=== PATIENT | male | born 1950 | race Caucasian/White ===

== ENCOUNTER 2018-05-27 15:19 | Inpatient (IN) | payer OTHER ==
--- NOTE | 2018-05-27 15:44 | RAD REPORT ---
EXAM DESCRIPTION: CT - Ct Stroke Brain Wo Cont - 05/27/2018 3:33 pm CLINICAL HISTORY: Confusion/alteration of awareness COMPARISON: None. TECHNIQUE: Computed axial tomography of the head was obtained. IV contrast was not requested. All CT scans are performed using dose optimization technique as appropriate and may include automated exposure control or mA/KV adjustment according to patient size. FINDINGS: An intracranial bleed is not seen . Cerebral atrophy is present. The ventricles are normal in caliber. No extra-axial fluid collection is noted. Mild opacification the right mastoids. Visualized sinuses clear. IMPRESSION: No acute intracranial abnormality is seen. If patient's symptoms persist MRI of the bra in would be recommended. Exam discussed with Dr. Smith at approximately 3:27 p.m. May 27, 2018
[2018-05-27 16:04] LABS: Protime INR 1.09
[2018-05-27 16:11] LABS: BUN Blood Urea Nitrogen 7 mg/dL (7-18); Bicarbonate 24 mmol/L (21-32); Glucose Level 161 mg/dL (74-106); Sodium Level 139 mmol/L (136-145)
[2018-05-27] MEDS ORDERED: CEFTRIAXONE/SWI 1gm 1 GM/10 ML SYR ONE ×2 (16:13→19:36)
[2018-05-27] MEDS ORDERED: NA CHLORIDE 0.9% 1,000 ML ONE ×2 (16:13→19:20)
--- NOTE | 2018-05-27 16:17 | RAD REPORT ---
EXAM DESCRIPTION: [place] Single View05/27/2018 4:09 pm CLINICAL HISTORY: Chest pain COMPARISON: 2016 FINDINGS: The lungs appear clear of acute infiltrate. The heart is normal size Postsurgical changes involve the chest IMPRESSION: No acute abnormalities displayed
[2018-05-27 16:56] LABS: Absolute Lymphocytes (CBC) 1.5 K/uL (0.7-4.9); Absolute Monocytes 1.4 K/uL (0.1-1.3); Basophils % 0.4 % (0-1.3); Eosinophils % 0.5 % (0-4.4); Hematocrit 45.3 % (39.6-49.0); Lymphocytes % 9.1 % (15.3-44.8); MPV 8.6 fL (7.6-11.3); Monocytes % 8.8 % (3.3-12.3); RBC Red Blood Cell Count 5.14 M/uL (4.33-5.43)
--- NOTE | 2018-05-27 16:57 | RAD REPORT ---
EXAM DESCRIPTION: CTHead angio05/27/2018 4:42 pm CLINICAL HISTORY: TIA /alteration of awareness/confusion COMPARISON: None TECHNIQUE: CT angiogram of the head was obtained. 3D MIPS reconstruction performed. All CT scans are performed using dose optimization technique as appropriate and may include automated exposure control or mA/KV adjustment according to patient size. FINDINGS: The basilar, internal carotid, anterior cerebral, middle cerebral and posterior cerebral a rteries are normal caliber. An aneurysm is not seen. A significant stenosis is not noted. IMPRESSION: Unremarkable CT angiogram head.
[2018-05-27] MEDS ORDERED: ACETAMINOPHEN 500 MG TAB ONE (17:11)
[2018-05-27 17:14] LABS: Urine Bacteria >50 /HPF (NONE SEEN); Urine RBC 20-50 /HPF (NONE SEEN)
--- OUTSIDE RECORDS SUMMARY | 2018-05-27 17:14 | XMS REPORT | Clinical Summary ---
:1950 Author Organization [facility] Address [address] [place] [address] Care Team Providers Name Role Phone Kevin Valenzuela MD Primary Care Provider Allergies No Known Allergies Medications Medication Sig Dispensed Refills Start Date End Date Status metoprolol Take 50 mg by mouth 0 Active (LOPRESSOR) 50 MG 2 (two) times tablet daily. irbesartan (AVAPRO) Take 300 mg by 0 Active 300 MG tablet mouth nightly. rosuvastatin Take 20 mg by mouth 0 Active (CRESTOR) 20 MG daily. tablet metFORMIN Take 1,000 mg by 0 Active (GLUCOPHAGE) 1000 MG mouth 2 (two) times tablet daily with breakfast and dinner. ezetimibe (ZETIA) 10 Take 10 mg by mouth 0 Active mg tablet daily. clopidogrel (PLAVIX) Take 75 mg by mouth 0 Active 75 mg tablet daily. Missing or Pt on a medication 0 Active Non-Formulary for gout. Cannot Medication recall name of it . Active Problems Problem Noted Date Abnormal nuclear stress test 10/02/2015 CAD (coronary artery disease) 08/30/2015 Diabetes 08/30/2015 Hypertension 08/30/2015 Hyperlipidemia 08/30/2015 Family History Medical History Relation Name Comments Cancer Father Diabetes Father Heart disease Father Coronary artery disease Mother Diabetes Mother Relation Name Status Comments Father Mother Social History Tobacco Use Types Packs/Day Years Used Date Former Smoker Alcohol Use Drinks/Week oz/Week Comments No Sex Assigned at Date Recorded Not on file Job Start Date Occupation Industry Not on file Not on file Not on file Travel History Travel Start Travel End No recent travel history available. Last Filed Vital Signs Not on file Plan of Treatment Not on file Results Not on fileafter 05/26/2017 Insurance Payer Benefit Plan / Group Subscriber ID Type Phone Address MEDICARE MEDICARE A B xxxxxxxxxx Medicare AETNA - MGD CARE AETNA INDEMNITY NON CONTR xxxxxxxxx Comm Advance Directives For more information, please contact:[address] [phone] Code Status Date Activated Date Inactivated Comments Full Code 10/02/2015 6:15 AM 10/02/2015 7:01 PM This code status was determined by: Patient
[2018-05-27 17:15] LABS: Urine Culture Reflex Order NOT NEEDED
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
--- NOTE | 2018-05-27 17:27 | EDPHYS ---
Physician Documentation [facility] Name: Dominic Jacobo Age: 68 yrs Sex: Male : 1950 Arrival Date: 05/27/2018 Time: 15:22 Bed 30 Private MD: ED Physician Osmar Smith HPI: 05/27 16:00 This 68 yrs old Male presents to ER via EMS with complaints of altered mental cp status. 16:00 The patient presents with decreased mental status. Onset: The symptoms/episode cp began/occurred today. Patient's baseline: Neuro: alert and fully oriented, Motor: no deficits, Ambulation: walks without assistance, Speech: normal. 16:00 Possible causes: low blood sugar, the patient uses insulin. cp 16:00 Associated signs and symptoms: Pertinent positives: confusion, weakness, Pertinent cp negatives: abdominal pain, chest pain, combativeness, diaphoresis, headache, seizure. Current symptoms: In the emergency department the patient's symptoms are unchanged from the initial presentation. Historical: - Allergies: 18:59 No Known Allergies; rv - Social history:: Smoking status: . - Ebola Screening: : Patient negative for fever greater than or equal to 101.5 degrees Fahrenheit, and additional compatible Ebola Virus Disease symptoms Patient denies exposure to infectious person Patient denies travel to an Ebola-affected area in the 21 days before illness onset. ROS: 16:01 Constitutional: Negative for fever. cp 16:01 Cardiovascular: Negative for chest pain. 16:01 Abdomen/GI: Negative for abdominal pain. 16:01 Neuro: Positive for altered mental status, weakness. 16:01 Unable to obtain ROS due to altered mental status. Exam: 16:02 ECG was reviewed by the Attending Physician. cp 16:07 Head/Face: Normocephalic, atraumatic. cp 16:07 Constitutional: The patient appears in no acute distress, alert, awake, non-diaphoretic, non-toxic, well developed, well nourished. 16:07 Eyes: Periorbital structures: appear normal, Pupils: equal, round, and reactive to light and accomodation, Extraocular movements: intact throughout, Conjunctiva: normal, no exudate, no injection, Sclera: no appreciated abnormality, Lids and lashes: appear normal, bilaterally. 16:07 ENT: External ear(s): are unremarkable, Nose: is normal, Mouth: Lips: moist, Oral mucosa: pink and intact, moist, Posterior pharynx: Airway: no evidence of obstruction, patent. 16:07 Neck: ROM/movement: is normal, is supple, without pain, no range of motions limitations, no meningismus, no nuchal rigidity. 16:07 Chest/axilla: Inspection: normal, Palpation: is normal, no crepitus, no tenderness. 16:07 Cardiovascular: Rate: tachycardic, Rhythm: regular, Edema: is not appreciated, JVD: is not appreciated. 16:07 Respiratory: the patient does not display signs of respiratory distress, Respirations: normal, no use of accessory muscles, no retractions, no splinting, no tachypnea, Breath sounds: are clear throughout, no decreased breath sounds, no stridor, no wheezing. 16:07 Abdomen/GI: Inspection: abdomen appears normal, Palpation: abdomen is soft and non-tender, in all quadrants. 16:07 Skin: cellulitis, is not appreciated, no rash present. 16:07 Neuro: Orientation: to person, place, Mentation: slow to respond, confused, Cerebellar function: Romberg testing is negative, normal finger to nose testing, Motor: moves all fours, general weakness w/o focal deficits, Sensation: no obvious gross deficits. Vital Signs: 15:35 BP 134 / 69 LA Supine (auto/); Pulse 108; Resp 24 S; Temp 99.4; Pulse Ox 94% on R/A; rv 16:53 Pulse 98; Resp 16 S; Temp 100.2(O); Pulse Ox 96% on R/A; rv 17:00 BP 144 / 101 RA; Pulse 96; Resp 29 S; Pulse Ox 96% on R/A; rv 18:00 BP 112 / 92 RA; Pulse 97; Resp 19 S; Pulse Ox 96% on R/A; rv 19:00 BP 113 / 81 RA; Pulse 107; Resp 18 S; Temp 99.8(O); Pulse Ox 96% on R/A; rv 20:00 BP 114 / 75 RA; Pulse 105; Resp 17 S; Pulse Ox 96% on R/A; rv 20:52 BP 128 / 73 RA Supine; Pulse 108; Resp 19 S; Pulse Ox 97% on R/A; rv NIH Stroke Scale Scores: 16:03 NIHSS Score: 1 cp Gilbert Coma Score: 16:05 Eye Response: spontaneous(4). Verbal Response: confused(4). Motor Response: obeys cp commands(6). Total: 14. MDM: 15:23 Patient medically screened. cp 15:45 Differential Diagnosis: CVA, electrolyte abnormality, hypoglycemia, intracranial bleed, cp meningitis, pneumonia, sepsis, UTI, volume depletion, DKA. 16:00 ED course: tpa not administered as onset of symptoms unable to be determined. Urine cp sample collected and symptoms appear to be caused by UTI and less likely due to CVA. 17:25 Data reviewed: vital signs, nurses notes, lab test result(s), EKG, radiologic studies, cp CT scan, plain films, I have discussed the patient's presentation/case with the attending Emergency Department Physician; and as a result, I will admit patient. Physician consultation: Solo Bowlingannamarie was contacted at 17:25, regarding admission, to the telemetry unit. patient's condition. 05/27 15:29 Order name: Basic Metabolic Panel; Complete Time: 16:26 05/27 16:26 Interpretation: Normal except: GLUC 161. 05/27 15:29 Order name: CBC with Diff; Complete Time: 17:46 05/27 17:46 Interpretation: Normal except: WBC 16.1; JACY% 81.2; LYM% 9.1; NEUT A 13.0. 05/27 15:29 Order name: Protime (+inr); Complete Time: 16:26 05/27 16:26 Interpretation: Reviewed. 05/27 15:29 Order name: Ptt, Activated; Complete Time: 16:26 05/27 16:27 Interpretation: Reviewed. 05/27 15:37 Order name: Lactate; Complete Time: 17:11 05/27 17:11 Interpretation: Within normal limits: LAC 1.8. 05/27 15:37 Order name: Blood Culture Adult (2) 05/27 15:29 Order name: CT Stroke Brain w/o Contrast; Complete Time: 16:26 05/27 16:27 Interpretation: Report reviewed. 05/27 15:29 Order name: Stroke CXR 1 View; Complete Time: 16:26 05/27 16:27 Interpretation: Report review. 05/27 15:37 Order name: Procalcitonin; Complete Time: 17:46 cp 05/27 17:47 Interpretation: Procalcitonin < 0.05; Reviewed. 05/27 15:39 Order name: CT Head Angio; Complete Time: 16:59 bd 05/27 17:15 Interpretation: Report reviewed. cp 05/27 15:53 Order name: Influenza Screen (a \T\ B); Complete Time: 16:59 cp 05/27 17:11 Interpretation: Reviewed. cp 05/27 15:56 Order name: Urine Microscopic Only; Complete Time: 17:15 cp 05/27 17:16 Interpretation: Reviewed. 05/27 15:56 Order name: Urine Culture 05/27 17:09 Order name: Urine Dipstick--Ancillary (enter results); Complete Time: 17:46 bd 05/27 17:47 Interpretation: Normal except: USPGR >1.030; UKET 1+; UBLD 3+; UPROT 3+; U NIT cp POSITIVE; UESTR 2+. 05/27 15:29 Order name: EKG; Complete Time: 15:29 iw 05/27 15:29 Order name: Accucheck; Complete Time: 16:56 iw 05/27 15:29 Order name: Cardiac monitoring; Complete Time: 15:50 iw 05/27 15:29 Order name: EKG - Nurse/Tech; Complete Time: 15:56 iw 05/27 15:29 Order name: IV Saline Lock; Complete Time: 15:50 iw 05/27 15:29 Order name: Labs collected and sent; Complete Time: 15:56 iw 05/27 15:29 Order name: NPO; Complete Time: 15:50 iw 05/27 15:29 Order name: O2 Per Protocol; Complete Time: 15:50 iw 05/27 15:29 Order name: O2 Sat Monitoring; Complete Time: 15:51 iw 05/27 17:47 Order name: Brain Wo Cont; Complete Time: 18:41 EDMS 05/27 15:29 Order name: Stroke Swallow Screen; Complete Time: 16:57 iw 05/27 15:48 Order name: Straight Cath - Urine; Complete Time: 16:57 rv EC:02 Rate is 101 beats/min. Rhythm is regular. FL interval is normal. QRS interval is cp normal. QT interval is normal. Interpreted by me. Reviewed by me. Administered Medications: 15:30 Drug: NS 0.9% 1000 ml Route: IV; Rate: 1 bolus; Site: left forearm; rv 20:54 Follow up: IV Status: Completed infusion rv 16:55 Drug: Rocephin - (cefTRIAXone) 2 grams Route: IVPB; Infused Over: 30 mins; Site: left rv forearm; 20:54 Follow up: IV Status: Completed infusion rv 17:03 Drug: Tylenol 1000 mg Route: PO; rv 19:26 Follow up: Response: Temperature is decreased rv 18:15 Drug: Ativan 0.5 mg Route: IVP; Site: left forearm; rv 19:12 Follow up: Response: No adverse reaction rv 19:00 Drug: NS 0.9% 1000 ml Route: IV; Rate: 75 ml/hr; Site: left forearm; rv 20:53 Follow up: IV Status: Infusion continued upon admission rv Disposition: 21:00 Chart complete. cp 05/28 07:02 Co-signature as Attending Physician, Osmar Smith MD. rn Disposition: 05/27/18 17:27 Hospitalization ordered by Solo Abarca for Inpatient Admission. Preliminary diagnosis are Altered mental status, unspecified, Urinary tract infection, site not specified, Weakness - general. - Bed requested for Telemetry/MedSurg (Inpatient). - Status is Inpatient Admission. rv - Condition is Stable. - Problem is new. - Symptoms have improved. UTI on Admission? Yes NIH Stroke Scale - NIH Stroke Score Date: 05/27/2018 Time: 16:03 Total Score = 1 1a. Level of Consciousness (LOC) - 0(Alert) 1b. Level of Consciousness (LOC) (Year \T\ Age) - 1(One) 1c. LOC Commands (Open \T\ Closes Eyes/Trip Motor Operator) - 0(Both) 2. Best Gaze (Lateral Gaze Paresis) - 0(Normal) 3. Visual Field Loss - 0(No visual loss) 4. Facial Palsy - 0(Normal) 5a. Left Arm: Motor (10-second hold) - 0(No drift) 5b. Right Arm: Motor (10-second hold) - 0(No drift) 6a. Left Leg: Motor (5-second hold - always test supine) - 0(No drift) 6b. Right Leg: Motor (5-second hold - always test supine) - 0(No drift) 7. Limb Ataxia (finger/nose \T\ heel/solis - test with eyes open) - 0(Absent) 8. Sensory Loss (pinprick arms/legs/face) - 0(Normal) 9. Best Language: Aphasia (description/naming/reading) - 0(No aphasia) 10. Dysarthria (speech clarity - read or repeat words) - 0(Normal) 11. Extinction and Inattention (visual/tactile/auditory/spatial/personal) - 0(No abnormality) Initials: cp Signatures: Dispatcher [employer] EDTN Mariana Su, RN RN iw Osmar Smith MD MD rn Page, Corey, PA PA cp Ginna Fu, TYRA MARY cg Charles Oglesby RN RN rv Corrections: (The following items were deleted from the chart) 05/27 17:47 17:04 MRA Head Wo Cont ordered. [facility] EDTN 19:25 17:27 Hospitalization Ordered by Solo Abarca DO for Inpatient Admission. cg Preliminary diagnosis is Altered mental status, unspecified; Urinary tract infection, site not specified; Weakness - general. Bed requested for Telemetry/MedSurg (Inpatient). Status is Inpatient Admission. Condition is Stable. Problem is new. Symptoms have improved. UTI on Admission? Yes. cp 20:54 19:25 05/27/2018 17:27 Hospitalization Ordered by Solo Abarca DO for rv Inpatient Admission. Preliminary diagnosis is Altered mental status, unspecified; Urinary tract infection, site not specified; Weakness - general. Bed requested for Telemetry/MedSurg (Inpatient). Status is Inpatient Admission. Condition is Stable. Problem is new. Symptoms have improved. UTI on Admission? Yes. cg
[2018-05-27 17:33] LABS: Urine Blood 3+ (NEG); Urine Glucose NEGATIVE (NEG); Urine Protein 3+ (NEG); Urine Specific Gravity >1.030 (1.005-1.030); Urine pH 5.5 (5.0-7.0)
[2018-05-27] MEDS ORDERED: LORazepam 2 MG/ML VIAL ONE (18:15)
--- NOTE | 2018-05-27 18:36 | RAD REPORT ---
EXAM DESCRIPTION: MRI - Brain Wo Cont - 05/27/2018 6:23 pm CLINICAL HISTORY: Confusion/alteration of awareness COMPARISON: May 27, [address] TECHNIQUE: Axial, sagittal, and coronal magnetic images of the brain were obtained. Contrast was not requested FINDINGS: Examination is very limited secondary to extensive patient motion. No gross acute intracranial abnormality is seen. Mild signal within the right mastoids IMPRESSION: Very limited examination with no gross acute intracranial abnormality
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
[2018-05-27] MEDS ORDERED: ONDANSETRON 4 MG/2 ML VIAL IV PRN (20:53)
[2018-05-27] MEDS ORDERED: ACETAMINOPHEN 500 MG TAB PO PRN (20:53)
[2018-05-27] MEDS: INSULIN -REGULAR HUMAN 50 UNIT/0.5 ML ML SQ SCH (21:00)
[2018-05-27] MEDS: NA CHLORIDE 0.9% 1,000 ML IV SCH (22:32)
[2018-05-28] MEDS: NA CHLORIDE 0.9% 1,000 ML IV SCH ×3 (06:20→18:39)
[2018-05-28 06:34] LABS: Absolute Lymphocytes (CBC) 1.4 K/uL (0.7-4.9); Absolute Monocytes 1.5 K/uL (0.1-1.3); Absolute Neutrophil 11.6 K/uL (1.8-8.0); Basophils % 0.5 % (0-1.3); Eosinophils % 0.5 % (0-4.4); Hematocrit 40.1 % (39.6-49.0); Lymphocytes % 9.6 % (15.3-44.8); MPV 9.1 fL (7.6-11.3); Monocytes % 10.2 % (3.3-12.3)
[2018-05-28 06:53] LABS: BUN Blood Urea Nitrogen 6 mg/dL (7-18); Bicarbonate 24 mmol/L (21-32); Glucose Level 181 mg/dL (74-106); Potassium 3.2 mmol/L (3.5-5.1); Sodium Level 138 mmol/L (136-145)
[2018-05-28] MEDS: INSULIN -REGULAR HUMAN 50 UNIT/0.5 ML ML SQ SCH ×4 (07:30→21:29)
[2018-05-28] MEDS ORDERED: MAGNESIUM SULFATE 1 gm IVPB 1 GM/100 ML BAG IV ONE (08:00)
[2018-05-28] MEDS ORDERED: POTASSIUM CL SA 10 MEQ TAB PO ONE (09:00)
[2018-05-28] MEDS ORDERED: CEFTRIAXONE 1 GM/NS 50 ML 1 GM/50 ML BAG IV SCH (09:00)
[2018-05-28] MEDS: ENOXAPARIN 40 MG/0.4 ML SQ SCH (10:25)
[2018-05-28] MEDS: CEFTRIAXONE/SWI 1gm 1 GM/10 ML SYR IV SCH (10:25)
--- NOTE | 2018-05-28 11:00 | RAD REPORT ---
EXAM DESCRIPTION: CT - Stone Protocol - 05/28/2018 5:34 am CLINICAL HISTORY: 68-year-old male with sepsis and urinary tract infection TECHNIQUE: Axial CT imaging of the abdomen and pelvis was performed. Sagittal and coronal reconstr ucted images were then performed. The CT study is performed according to ALARA (as low as reasonably achievable) or ALARA/IMAGE GENTLY, with automatic adjustment of mA and/or kV according to patient siz e. Performed on: 05/28/2018 at 12:06 AM COMPARISON: None. FINDINGS: Lung bases: The lung bases are clear. There is minimal bibasilar atelectasis and/or fibros is. Liver: The liver is enlarged and measures approximately 20 cm in craniocaudal dimension. No focal hep atic abnormalities are appreciated on this unenhanced scan. Liver attenuation is within normal limits . Spleen: The spleen is normal is size, configuration and attenuation. No focal splenic abnormalities a re appreciated on this unenhanced scan. Gallbladder and bile duct: The gallbladder is surgically absent. There is no biliary ductal dilatat ion. Pancreas: The pancreas is grossly normal in size and configuration. Adrenal Glands: There is an approximately 1.3 x 1.0 cm mass arising from the apex of the right adrena l gland measuring approximately -40 Hounsfield units most consistent with a lipid rich adenoma or mye lolipoma. No follow-up imaging is recommended. There is an approximately 1.6 x 1.0 x 3.1 cm low densi ty mass arising from the anterior limb of the left adrenal gland measuring -66 Hounsfield units consi stent with a lipid rich adenoma or myelolipoma. No follow-up imaging is recommended. Additionally, th ere is an approximately 1.5 x 1.5 cm low density mass arising from the left adrenal gland measuring a pproximately 22 Hounsfield units. This likely represents a probable adenoma. Kidneys: The kidneys are normal in size and configuration. There is no evidence of hydronephrosis. Th ere is no evidence of nephrolithiasis. There is increased attenuation within the renal collecting sys tems bilaterally which may represent retained contrast from a prior examination versus less likely ca lcification. There is stranding of the perinephric fat bilaterally which is nonspecific and may be re lated to chronic medical renal disease. Stomach: The stomach is grossly normal. There is no definite hiatal hernia. Bowel: The bowel gas pattern is non specific and non obstructive. There is scattered colonic divertic ulosis. Appendix: The appendix is normal. Free air: There is no evidence of free air. Free fluid: There is no evidence of free fluid. Vasculature: The aorta is normal in caliber and contour. The inferior vena cava is grossly unremarkab le. There are atherosclerotic calcifications along the abdominal aorta and iliac arteries. Lymphadenopathy: No pathologic lymphadenopathy is identified. Bladder: The bladder is incompletely distended. There is contrast within the bladder lumen and there is diffuse thickening of the bladder wall which measures at least 1 cm in diameter. There is mild inf iltration of the perivesical fat. An infectious or inflammatory process involving the bladder is not excluded. Reproductive: The prostate gland is mildly prominent and measures approximate 6.0 x 4.5 cm in cross-s ectional diameter. Bones: There are mild to moderate degenerative changes along the thoracolumbar spine. Soft tissues: There is a small fat-containing ventral umbilical hernia. IMPRESSION: 1. There is an approximately 1.5 cm low density mass arising from the left adrenal gland measuring 22 Hounsfield units likely representing a probable adenoma. A one-year follow-up adrenal w ashout CT is recommended. If stable greater than or equal to one year, no further follow-up imaging. 2. Bilateral lipid rich adrenal adenomas or myelolipomas. These require no follow-up imaging. 3. Diffuse bladder wall thickening despite incomplete distention of the urinary bladder with infiltra tion of the perivesical fat. An underlying infectious or inflammatory process involving the bladder i s not excluded. There is contrast present within the bladder and there appears to be faint contrast o pacification of the renal collecting systems which may be related to a prior contrast enhanced examin ation. 4. Hepatomegaly. 5. Remote cholecystectomy. 6. Scattered colonic diverticulosis. 7. Degenerative changes of the skeletal and vascular structures. Electronically signed by: Arleen Edgar DO 05/28/2018 1:28 AM CDT Due to temporary technical issues with the PACS/Fluency reporting system, reports are being signed by the in house radiologist as a courtesy to ensure prompt reporting. The interpreting radiologist is f ully responsible for the content of the report.
--- NOTE | 2018-05-28 12:45 | P.PN ---
Subjective Date of Service: 05/28/18 Primary Care Provider: Dr. Valenzuela Chief Complaint: sepsis, UTI Subjective: Other (Slight confusion but overall stable) Physical Examination - Vital Signs Temperature: 97.6 F Blood Pressure: 137/85 Pulse: 112 Respirations: 18 Pulse Ox (%): 92 - Physical Exam General: Alert, Oriented x1, Cooperative, Other (Mild confusion) HEENT: Atraumatic Neck: Supple Respiratory: Clear to auscultation bilaterally, Normal air movement Cardiovascular: Abnormal pulses (Mild sinus tachycardia ) Gastrointestinal: Normal bowel sounds, Soft and benign, Non-distended, No tenderness, No masses, No rebound, No guarding Musculoskeletal: No erythema, No tenderness, No warmth Integumentary: No cyanosis Neurological: Normal speech, Normal strength at 5/5 x4 extr, Normal tone - Studies Laboratory Data (last 24 hrs) 05/27/18 16:30: WBC 16.1 H, Hgb 15.3, Hct 45.3, Plt Count 243 05/27/18 15:48: PT 12.8 H, INR 1.09, APTT 31.1 05/27/18 15:48: Sodium 139, Potassium 4.0, BUN 7, Creatinine 0.82, Glucose 161 H Microbiology Data (last 24 hrs): 05/27/18 15:45 Nasopharnyx Influenza Type A Antigen Screen - Final 05/27/18 15:45 Nasopharnyx Influenza Type B Antigen Screen - Final Medications List Reviewed: Yes Assessment & Plan Discharge Plan: Other (Inpatient rehab) Plan to discharge in: Greater than 2 days Physician Review Additional Text: Impression: Toxic encephalopathy likely related to underlying UTI with possible sepsis with history of urinary incontinence Diabetes mellitus type 2, insulin-dependent Hypertension Hyperlipidemia CAD 1.5 cm left adrenal mass likely a benign adenoma Plan: Toxic encephalopathy likely related to underlying UTI with possible sepsis with history of urinary incontinence: Continue IV antibiotic therapy. Will have pharmacy monitor and adjust. Blood and urine cultures obtained. Await findings. MRI of brain and CT head unremarkable for acute stroke. Will restart medication for urinary incontinence. Will provide DVT prophylaxis- Lovenox. Physical therapy has evaluated patient. They are recommending inpatient rehab or skilled placement. Will consult inpatient rehab. Continue IV fluids. Will continue monitor and adjust medication. Diabetes mellitus type 2, insulin-dependent: Will check A1c. Will continue with insulin sliding scale. Hypertension: Will restart home medication including metoprolol and Arb inhibitor. Hyperlipidemia: Restart Crestor. CAD: Restart aspirin and Plavix. 1.5 cm left adrenal mass likely a benign adenoma: CT scan reviewed. This can be further monitored and addressed as an outpatient. May need to repeat CT scan in 3-6 months to monitor stability. Time Spent Managing Pts Care (In Minutes): 55
[2018-05-28] MEDS ORDERED: D50W 25 GM/50 ML SYRINGE IV PRN (12:46)
[2018-05-28] MEDS ORDERED: GLUCAGON 1 MG/VIAL IM PRN (12:46)
[2018-05-28 18:16] LABS: Absolute Lymphocytes (CBC) 1.4 K/uL (0.7-4.9); Absolute Monocytes 1.5 K/uL (0.1-1.3); Absolute Neutrophil 11.8 K/uL (1.8-8.0); Basophils % 0.4 % (0-1.3); Eosinophils % 0.6 % (0-4.4); Hematocrit 40.5 % (39.6-49.0); Lymphocytes % 9.5 % (15.3-44.8); MPV 8.5 fL (7.6-11.3); Monocytes % 10.1 % (3.3-12.3); RBC Red Blood Cell Count 4.58 M/uL (4.33-5.43)
[2018-05-28 18:37] LABS: ALT/SGPT 22 U/L (12-78); AST/SGOT 12 U/L (15-37); Albumin 3.2 g/dL (3.4-5.0); Alkaline Phosphatase 71 U/L (45-117); BUN Blood Urea Nitrogen 7 mg/dL (7-18); Bicarbonate 23 mmol/L (21-32); Glucose Level 206 mg/dL (74-106); Protein, Total 7.1 g/dL (6.4-8.2); Sodium Level 140 mmol/L (136-145)
[2018-05-28 18:41] LABS: Potassium 5.5 mmol/L (3.5-5.1)
[2018-05-28] MEDS ORDERED: ROSUVASTATIN 10 MG TAB PO SCH (21:00)
[2018-05-28] MEDS ORDERED: INSULIN GLARGINE 100 UNITS/ML SQ SCH (21:00)
[2018-05-28] MEDS: METOPROLOL XL 25 MG TAB PO SCH (21:29)
[2018-05-29] MEDS: NA CHLORIDE 0.9% 1,000 ML IV SCH ×2 (03:00→12:34)
[2018-05-29 06:13] LABS: Absolute Lymphocytes (CBC) 1.4 K/uL (0.7-4.9); Absolute Monocytes 1.4 K/uL (0.1-1.3); Absolute Neutrophil 11.6 K/uL (1.8-8.0); Basophils % 0.6 % (0-1.3); Eosinophils % 1.3 % (0-4.4); Hematocrit 38.4 % (39.6-49.0); Lymphocytes % 9.8 % (15.3-44.8); MPV 8.7 fL (7.6-11.3); Monocytes % 9.8 % (3.3-12.3); RBC Red Blood Cell Count 4.39 M/uL (4.33-5.43)
[2018-05-29 06:19] LABS: BUN Blood Urea Nitrogen 6 mg/dL (7-18); Bicarbonate 24 mmol/L (21-32); Glucose Level 173 mg/dL (74-106); Potassium 3.8 mmol/L (3.5-5.1); Sodium Level 137 mmol/L (136-145)
[2018-05-29] MEDS ORDERED: ASPIRIN 81 MG CHEWABLE TABLET PO SCH (09:00)
[2018-05-29] MEDS ORDERED: CLOPIDOGREL 75 MG TABLET PO SCH (09:00)
[2018-05-29] MEDS ORDERED: EZETIMIBE 10 MG TAB PO SCH (09:00)
[2018-05-29] MEDS ORDERED: IRBESARTAN 150 MG TAB PO SCH (09:00)
[2018-05-29] MEDS ORDERED: TOLTERODINE LA 4 MG CAP PO SCH (09:00)
[2018-05-29] MEDS ORDERED: POTASSIUM CL SA 10 MEQ TAB PO ONE (09:00)
[2018-05-29] MEDS: METOPROLOL XL 25 MG TAB PO SCH (10:04)
[2018-05-29] MEDS: CEFTRIAXONE/SWI 1gm 1 GM/10 ML SYR IV SCH (10:04)
[2018-05-29] MEDS: ENOXAPARIN 40 MG/0.4 ML SQ SCH (10:05)
[2018-05-29] MEDS: INSULIN -REGULAR HUMAN 50 UNIT/0.5 ML ML SQ SCH ×3 (10:11→16:58)
--- NOTE | 2018-05-29 13:39 | P.PN ---
Subjective Date of Service: 05/29/18 Primary Care Provider: Dr. Valenzuela Chief Complaint: sepsis, UTI Subjective: Improving (Patient more alert and appropriate today.) Physical Examination - Vital Signs Temperature: 98.2 F Blood Pressure: 132/74 Pulse: 94 Respirations: 18 Pulse Ox (%): 93 - Physical Exam General: Alert, In no apparent distress, Oriented x3, Cooperative HEENT: Atraumatic Neck: Supple Respiratory: Clear to auscultation bilaterally, Normal air movement Cardiovascular: Normal pulses, Regular rate/rhythm Gastrointestinal: Normal bowel sounds, Soft and benign, Non-distended, No masses , No rebound, No guarding Musculoskeletal: No erythema, No tenderness, No warmth Integumentary: No tenderness/swelling, No erythema, No warmth, No cyanosis Neurological: Normal speech, Normal strength at 5/5 x4 extr, Normal tone, Normal affect - Studies Microbiology Data (last 24 hrs): 05/27/18 16:15 Clean Catch Urine [place] Count - Final >100,000 CFU/ML. 05/27/18 16:15 Clean Catch Urine - Final Klebsiella Pneumoniae Medications List Reviewed: Yes Assessment & Plan Discharge Plan: Other (Inpatient rehab) Plan to discharge in: 24 Hours Physician Review Additional Text: Impression: Toxic encephalopathy likely related to underlying UTI, urine culture positive for Klebsiella with history of urinary incontinence: Diabetes mellitus type 2, insulin-dependent Hypertension Hyperlipidemia CAD 1.5 cm left adrenal mass likely a benign adenoma Plan: Toxic encephalopathy likely related to underlying UTI, urine culture positive for Klebsiella with history of urinary incontinence: Patient continues to improve. He is back to baseline in his mentation. Urine culture reviewed. Will change IV antibiotic therapy to oral Augmentin. Will continue to monitor closely. Continue with physical therapy. Physical therapy recommended inpatient rehab. Will pursue inpatient rehab. Await acceptance. Case discussed with and his primary care physician. Dc IV fluids. Diabetes mellitus type 2, insulin-dependent: Will adjust medication for better control Hypertension: Continue with home medication Hyperlipidemia: Continue medication CAD: Continue home medication 1.5 cm left adrenal mass likely a benign adenoma: CT scan reviewed. This can be further monitored and addressed as an outpatient. May need to repeat CT scan in 3-6 months to monitor stability. Time Spent Managing Pts Care (In Minutes): 55
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
[2018-05-29] MEDS ORDERED: AMOX/K CLAV 500 MG TAB PO SCH (21:00)
[2018-05-29] MEDS ORDERED: INSULIN GLARGINE 100 UNITS/ML SQ SCH (21:00)
--- NOTE | 2018-06-02 11:15 | EKG ---
Test Date: 2018-05-27 Test Time: 15:56:06 Weekend Caregiver: VISH MEASUREMENT RESULTS: Intervals: Rate: 101 NV: 140 QRSD: 88 QT: 350 QTc: 453 [place]: P: 77 NV: 140 QRS: 12 T: 94 INTERPRETIVE STATEMENTS: Sinus tachycardia ST & T wave abnormality, consider lateral ischemia Abnormal ECG Compared to ECG 08/25/2008 08:40:44 ST (T wave) deviation now present Possible ischemia now present Sinus rhythm no longer present Electronically Signed On 05-27-18 16:57:16 CDT by Zeyad Castro
== END 2018-05-29 17:30 | DRG 689 ==
LOC: ER 15:19 → ERHOLD 18:51 → 2ND 20:24
PROVIDERS: ADMIT Family Medicine; ATTEND Internal Medicine
DX: N39.0 Urinary tract infection, site not specified (principal); G92 Toxic encephalopathy; B96.1 Klebsiella pneumoniae [K. pneumoniae] as the cause of diseases classified elsewhere; E11.9 Type 2 diabetes mellitus without complications; I10 Essential (primary) hypertension; R32 Unspecified urinary incontinence; E78.5 Hyperlipidemia, unspecified; I25.10 Atherosclerotic heart disease of native coronary artery without angina pectoris; E27.8 Other specified disorders of adrenal gland; Z95.1 Presence of aortocoronary bypass graft
CPT/HCPCS: 36415; 70450; 70496; 70551; 71045; 74176; 76377; 80048; 80053; 81003; 81015; 82962; 83605; 83735; 84132; 84145; 85025; 85610; 85730; 87040; 87077; 87086; 87088; 87186; 87804; 93005; 96361; 96365; 96366; 96375; 97116; 97163; 97530; 99285; J0696; J1650; J3475; J7030

== ENCOUNTER 2018-05-29 13:31 | Inpatient (IN) | payer OTHER ==
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
--- OUTSIDE RECORDS SUMMARY | 2018-05-29 17:21 | XMS REPORT | Clinical Summary ---
:1950 Author Organization [facility] Address [address] [place] [address] Care Team Providers Name Role Phone Kevin [...] Not on file Results Not on fileafter 05/28/2017 Insurance Payer Benefit Plan / Group Subscriber ID Type Phone Address MEDICARE MEDICARE A B xxxxxxxxxx Medicare AETNA - MGD CARE AETNA INDEMNITY NON CONTR xxxxxxxxx Comm Advance Directives For more information, please contact:[address] [phone] Code Status Date Activated Date Inactivated Comments Full Code 10/02/2015 6:15 AM 10/02/2015 7:01 PM This code status was determined by: Patient
[2018-05-29] MEDS ORDERED: GLUCAGON 1 MG/VIAL IM PRN (17:37)
[2018-05-29] MEDS ORDERED: D50W 25 GM/50 ML SYRINGE IV PRN (17:37)
[2018-05-29] MEDS ORDERED: DOCUSATE NA/SENNA CONC 1 TAB PO PRN (17:56)
[2018-05-29] MEDS: AMOX/K CLAV 500 MG TAB PO SCH (19:41)
[2018-05-29] MEDS: METOPROLOL XL 25 MG TAB PO SCH (19:42)
[2018-05-29] MEDS: TRAMADOL HCL 50 MG TAB PO PRN (19:42)
[2018-05-29] MEDS: APIXABAN 2.5 MG TABLET PO SCH (19:42)
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
--- NOTE | 2018-05-29 19:49 | PAPE ---
PATIENT: [facility] MR# [id number] REFERRING DOCTOR duy Abarca EVALUATION DATE AND TIME 05/29/2018 19:48 (CDT) NAME YANICK COOPER DATE OF 1950 AGE 68 PHONE N# [id number] GENDER male EVALUATING PHYSICIAN Dr. Mc Clarke M.D. ADMISSION DIAGNOSIS: SEPSIS, UTI, HYPERTENSION, DIABETES MELLITUS ONSET DATE 05/27/2018 SECONDARY/COMORBID DIAGNOSES TIERED: - Tier 3 Type 2 diabetes mellitus with diabetic neuropathy, unspecified (E11.40) - N/A HYPERTENSION CAD POST-ADMISSION FUNCTIONAL/MEDICAL STATUS: - Bladder Same accident frequency: Ind - No accidents in the past 7 days - Bowel Same accident frequency: Ind - No accidents in the past 7 days - Walking Same score based on distance walked: 3(>=150ft) - Wheelchair Same score based on distance traveled: 0(N/A) STATUS CHANGE EVALUATION: No change in Functional or Medical Status is identified compared with Pre-Admission screening. PATIENT NEEDS CLOSE MEDICAL SUPERVISION BY A REHABILITATION PHYSICIAN FOR: Bowel and Bladder Management Coordination of Treatment Team Diabetes Management Medical and Co-Morbidity Management PATIENT REQUIRES 24X7 REHAB NURSING FOR MEDICAL AND FUNCTIONAL MGT. OF THE FOLLOWING DEFICITS: ADL's Ambulation Bowel and Bladder Management Cognition Communication Disease Management Medication Management Patient/Family Education Providing Safe Environment Transfers Pain Management PATIENT REQUIRES INTENSIVE, COORDINATED INTERDISCIPLINARY APPROACH TO REHAB: Arranging Home Equipment/Services Discharge Planning Family Intervention/Training Recreation Adviser/Case Management LIST OF IDENTIFIED AND POTENTIAL PROBLEMS: Alteration in leisure activities Bladder, Incontinence Blood Pressure, Hypertension/hypotension Issues Bowel, Incontinence Diabetes, Hyperglycemia/hypoglycemia Issues Infection, Actual or Potential Mobility Impaired Pain, Alteration in Comfort Self Care Deficit Skin Integrity, Actual or Potential Urinary Tract Infection (UTI), Actual or Potential RISK FOR COMPLICATIONS - Hypertension CVA. Hypotension. AK. TIA. - CAD CHF. Cardiac Arrest. AK. Pain. INTERVENTIONS - Hypertension - CAD 02 sats. Activity management. Medications. VS. PATIENT COULD BE AT RISK FOR COMPLICATIONS FROM ADVERSE MEDICAL CONDITIONS DUE TO HIS/HER COMORBIDITI ES AND THE RIGORS OF THE INTENSIVE REHABILLITATION PROGRAM. METHODS OR INTERVENTIONS TO AVOID COMPLIC ATIONS INCLUDE: - Infection Clinical staff to assess and manage the signs and symptoms of infection including fever, redness, war mth, etc. - Urinary Tract Infection - Falls Patient will be evaluated for Fall Precautions and will be placed on Fall Precautions as indicated pe r protocol. - Skin Breakdown Nursing will assess skin daily using assessment tool and will place on Skin Breakdown Precautions as indicated per protocol. - Pain Clinical staff may employ non-medication methods such as massage, distraction, decrease stimulus, etc . as needed. Clinical staff will assess patient's pain level every shift per protocol to assess and e nsure pain management effectiveness. Medications will be given and the pain level re-assessed. PRELIMINARY PLAN OF CARE: - Physical Therapy Patient needs Physical Therapy for a daily minimum of 1.5 hours at least 5 out of 7 days, to improve: Mobility, Strengthening, Transfers, Stretching, ROM, Endurance, Ability to manage stairs, Gait, and Balance. - Rehabilitation Nursing Patient requires 24x7 Rehabilitation Nursing for: Pain Issues, Identifying and preventing risk factor s, Monitoring and reporting current medical conditions, Assisting with ambulation and transfer, Preston ting with all ADL-s, Teaching patients about disease process and medications, Family teaching, Provid ing safe environment, Bowel and Bladder Issues, Skin Integrity, and Medication Management. Patient needs Recreation Adviser and/or Case Management for: Discharge Planning, Arranging Home Equipmen t or Services, and Family Interventions. - Dietary and Nutrition Services Patient needs Dietary and Nutrition Services for: Adequate Nutrition, Nutritional Supplements, and Nu tritional Education. - Occupational Therapy Patient needs Occupational Therapy for a daily minimum of 1.5 hours at least 5 out of 7 days, to impr ove Activities of Daily Living, including: Eating, Grooming, Bathing, Dressing, Toileting, Toilet Tra nsfers, Community Reintegration, Higher functional activities, Adaptive Equipment, Splinting, Househo ld Tasks, and Other activities as determined. POTENTIAL FUNCTIONAL GOALS FOR PATIENT TO ACHIEVE BY DISCHARGE: - Safety Precaution Patient will remain free from falls or injury at time of discharge. - Bed Mobility Patient will perform bed mobility at 4-Harley level of assistance. - Transfers Patient will complete transfers from bed to chair at 4-Harley level of assistance. - Mobility Patient will ambulate 150 ft with 4-Harley level of assistance with RW. PATIENT REHAB POTENTIAL Expected level of measurable improvement will be of a practical value to patient's functional capacit y or adaptations to impairments Has a viable Discharge Plan Medically appropriate; condition is sufficiently stable to participate in intensive rehab program Patient is able and expected to receive 3 hours of individualized therapy daily on at least 5 of ever y 7 days Patient's prognosis for significant practical improvement within a reasonable period of time appears Good DISCHARGE PLAN: - Estimated Length of Stay (days) 13. - Consensus on plan Discharge plan has been discussed with primary caregiver. Patient/Family is in agreement with the heike n. Primary caregiver is in agreement with the plan. - Patient/Family Goals Return home with assistance. - Planned Living Setting Upon Discharge Home, to live with Family/Relatives. Transitional Living. CONCLUSION ON REHABILITATION NECESSITY: I have evaluated patient's pre-admission functional status and, comparing it to the patient's post-ad mission functional status now, I conclude that the pre-admission assessment was accurate. Patient's c ondition on admission supports the medical necessity of admission to IRF. It is safe to proceed with patient's therapy program. SIGNATURE PANEL: (CDT)
[2018-05-29] MEDS ORDERED: EZETIMIBE 10 MG TAB PO SCH (21:00)
[2018-05-29] MEDS: ROSUVASTATIN 10 MG TAB PO SCH (22:12)
[2018-05-29] MEDS: INSULIN -REGULAR HUMAN 50 UNIT/0.5 ML ML SQ SCH (22:42)
[2018-05-30] MEDS: LIDOCAINE 5% PATCH TOP SCH ×2 (00:52→21:05)
--- NOTE | 2018-05-30 02:11 | FAST ---
SHIFT START DATE/TIME: 05/29/2018 19:00 (CDT) SHIFT END DATE/TIME: 05/30/2018 07:00 (CDT) NAME YANICK COOPER DATE OF : 1950 DATE OF ADMISSION: 05/29/2018 17:19 (CDT) PHONE: AGE: 68 SSN# [id number] GENDER: Male ENCOUNTER PHYSICIAN: Dr. Mc Clarke M.D. ADMISSION DIAGNOSIS: - Debility 16 - Debility (16) SEPSIS, UTI, HYPERTENSION, DIABETES MELLITUS. EATING: Activity did not occur on this shift EATING - SCORE: 0-UNK GROOMING: Activity did not occur on this shift GROOMING - SCORE: 0-UNK BATHING: Activity did not occur on this shift BATHING - SCORE: 0-UNK DRESSING - UPPER BODY: Patient is not dressing in public clothing ARTICLES SCORE Total number of steps: 0 DRESSING - UPPER BODY - SCORE: 0-UNK DRESSING - LOWER BODY: Patient is not dressing in public clothing ARTICLES SCORE Total number of steps: 0 DRESSING - LOWER BODY - SCORE: 0-UNK TOILETING: Activity did not occur on this shift TOILETING - SCORE: 0-UNK BLADDER MANAGEMENT: Shokan removes incontinent device (Depends, pull ups, etc.); cleans the patient after accident / inco ntinent episode; and, applies new incontinent device. BLADDER MANAGEMENT - SCORE: 1-DEP BLADDER MANAGEMENT - FREQUENCY OF ACCIDENTS: BLADDER MANAGEMENT(FA) - STEP 1: How many accidents has the patient had during the current shift? 2 BOWEL MANAGEMENT: Activity did not occur on this shift BOWEL MANAGEMENT - SCORE: 7-IND TRANSFERS: BED, CHAIR, WHEELCHAIR: Activity did not occur on this shift TRANSFERS: BED, CHAIR, WHEELCHAIR - SCORE: 0-UNK TRANSFERS: TOILET: Activity did not occur on this shift TRANSFERS: TOILET - SCORE: 0-UNK TRANSFERS: SHOWER: Activity did not occur on this shift TRANSFERS: SHOWER - SCORE: 0-UNK TRANSFERS: TUB: Activity did not occur on this shift TRANSFERS: TUB - SCORE: 0-UNK LOCOMOTION: WALK: Activity did not occur on this shift LOCOMOTION: WALK - SCORE: 0-UNK LOCOMOTION: WHEELCHAIR: Activity did not occur on this shift LOCOMOTION: WHEELCHAIR - SCORE: 0-UNK COMPREHENSION: COMPREHENSION: TYPE: Both COMPREHENSION - STEP 1: Does the patient require help from a person or device, or need extra time to understand complex and a bstract ideas (such as current events, finances, discharge planning, medical issues, relationships, e tc)? Yes. COMPREHENSION - STEP 2: Does the patient require help to understand questions or statements about basic needs or ideas (such as hunger, thirst, sleep, safety, daily schedule, room location, or discomfort) half or more of the t mary? No. COMPREHENSION - STEP 3: How often does the patient need help to understand directions and conversation about basic needs? Les s than 10% of the time COMPREHENSION - SCORE: 5-SUP EXPRESSION EXPRESSION: TYPE: Both EXPRESSION - STEP 1: Does the patient require help from a person or device, or need extra time expressing complex and abst ract ideas (such as current events, finances, discharge planning, medical issues, relationships, etc) ? Yes. EXPRESSION - STEP 2: Does the patient require help to express basic necessities or ideas (such as hunger, thirst, sleep, s afety, daily schedule, room location, or discomfort) half or more of the time? No. EXPRESSION - STEP 3: How often does the patient need help to express directions and conversation about basic needs? Less t story 10% of the time EXPRESSION - SCORE: 5-SUP SOCIAL INTERACTION: SOCIAL INTERACTION - STEP 1: Does the patient require a helper to interact with others in social and therapeutic situations? No. SOCIAL INTERACTION - STEP 2: Does the patient need extra time in social situations, OR does s/he interact with staff, other patien ts, and family members ONLY in structured environments, OR does s/he require medication for social in teraction? Yes, patient needs extra time SOCIAL INTERACTION - SCORE: 6-ILA PROBLEM SOLVING: PROBLEM SOLVING - STEP 1: Does the patient need help from a person or device, or need extra time to solve complex problems such as managing a checking account or confronting interpersonal problems? Yes. PROBLEM SOLVING - STEP 2: Does the patient solve basic routine problems half or more of the time? Yes. PROBLEM SOLVING - STEP 3: How often does the patient need help to solve basic routine problems? Less than 10% of the time PROBLEM SOLVING - SCORE: 5-SUP MEMORY: MEMORY - STEP 1: Does the patient need help from a person or device, or need extra time to remember frequently encount ered people, daily routines, and executing requests? Yes. MEMORY - STEP 2: How often does the patient need help to remember frequently encountered people, daily routines, and e xecuting requests? Less than 10% of the time MEMORY - SCORE: 5-SUP
[2018-05-30] MEDS: HYDROCODONE/APAP 5/325 MG TAB PO PRN ×2 (05:04→21:06)
[2018-05-30] MEDS: METOPROLOL XL 25 MG TAB PO SCH ×2 (05:05→17:22)
[2018-05-30 06:57] LABS: Absolute Lymphocytes (CBC) 1.2 K/uL (0.7-4.9); Absolute Monocytes 1.1 K/uL (0.1-1.3); Absolute Neutrophil 8.3 K/uL (1.8-8.0); Basophils % 0.6 % (0-1.3); Eosinophils % 2.8 % (0-4.4); Hematocrit 38.8 % (39.6-49.0); Lymphocytes % 11.1 % (15.3-44.8); MPV 8.4 fL (7.6-11.3); Monocytes % 9.9 % (3.3-12.3); RBC Red Blood Cell Count 4.39 M/uL (4.33-5.43)
[2018-05-30 07:15] LABS: BUN Blood Urea Nitrogen 9 mg/dL (7-18); Bicarbonate 24 mmol/L (21-32); Glucose Level 250 mg/dL (74-106); Magnesium 2.2 mg/dL (1.8-2.4); Potassium 3.6 mmol/L (3.5-5.1); Prealbumin 8.3 mg/dL (20-40); Sodium Level 140 mmol/L (136-145)
[2018-05-30] MEDS: PREGABALIN 50 MG CAP PO SCH (08:00)
[2018-05-30] MEDS: TRESIBA 50 UNIT SQ SCH (08:00)
[2018-05-30] MEDS: INSULIN -REGULAR HUMAN 50 UNIT/0.5 ML ML SQ SCH ×4 (08:04→21:04)
[2018-05-30] MEDS: IRBESARTAN 150 MG TAB PO SCH (08:47)
[2018-05-30] MEDS: CLOPIDOGREL 75 MG TABLET PO SCH (08:49)
[2018-05-30] MEDS: AMOX/K CLAV 500 MG TAB PO SCH ×2 (08:49→21:00)
[2018-05-30] MEDS: FOLIC ACID 1 MG TABLET PO SCH (08:49)
[2018-05-30] MEDS: APIXABAN 2.5 MG TABLET PO SCH ×2 (08:50→21:00)
[2018-05-30] MEDS: EZETIMIBE 10 MG TAB PO SCH (08:50)
[2018-05-30] MEDS: ASPIRIN 81 MG CHEWABLE TABLET PO SCH (08:50)
[2018-05-30] MEDS: TRAMADOL HCL 50 MG TAB PO PRN (08:50)
[2018-05-30] MEDS: TOLTERODINE LA 4 MG CAP PO SCH (08:51)
--- NOTE | 2018-05-30 11:03 | FAST ---
SHIFT START DATE/TIME: 05/30/2018 07:00 (CDT) SHIFT END DATE/TIME: 05/30/2018 19:00 (CDT) NAME YANICK COOPER DATE OF : 1950 DATE OF ADMISSION: 05/29/2018 17:19 (CDT) PHONE: AGE: 68 N# [id number] GENDER: Male ENCOUNTER PHYSICIAN: Dr. Mc Clarke M.D. ADMISSION DIAGNOSIS: - Debility 16 - Debility (16) SEPSIS, UTI, HYPERTENSION, DIABETES MELLITUS. EATING: EATING - STEP 1: Does the patient require the assistance of a person or device, or need extra time when eating? Yes. EATING - STEP 2: Does the patient require the assistance of a helper? Yes. EATING - STEP 3: Does the patient perform half or more of the eating tasks? Yes. EATING - STEP 4: Does the patient need only supervision, cuing, coaxing OR help to apply an orthosis OR help to cut fo od, open containers, pour liquids, or butter bread? Yes. EATING - SCORE: 5-SUP GROOMING: Activity did not occur on this shift GROOMING - SCORE: 0-UNK BATHING: Activity did not occur on this shift BATHING - SCORE: 0-UNK DRESSING - UPPER BODY: Activity did not occur on this shift ARTICLES SCORE Total number of steps: 0 DRESSING - UPPER BODY - SCORE: 0-UNK DRESSING - LOWER BODY: Activity did not occur on this shift ARTICLES SCORE Total number of steps: 0 DRESSING - LOWER BODY - SCORE: 0-UNK TOILETING: TOILETING - STEP 1: Does the patient require the assistance of a person or device, or need extra time with toileting? Yes . TOILETING - STEP 2: Does the patient require the assistance of a helper? Yes. TOILETING - STEP 3: How much assistance does the patient require from the helper? Hands-on assistance from the helper TOILETING - STEP 4: Of the 3 tasks: 1) Adjusting clothing prior to use, 2) Cleansing of perineal area, 3) Adjusting clot margaret after use; How many tasks does the patient perform WITHOUT assistance of the helper? Two tasks TOILETING - SCORE: 3-MOD BLADDER MANAGEMENT: BLADDER MANAGEMENT - STEP 1: Does the patient control the bladder completely and intentionally without equipment or devices or med ications, and is always continent? No. BLADDER MANAGEMENT - STEP 2: Does the patient require the assistance of a helper? No, patient requires and independently uses an a ssistive device, such as a urinal, bedpan, bedside commode, catheter, absorbent pad, or collecting de vice BLADDER MANAGEMENT - SCORE: 6-ILA BOWEL MANAGEMENT: Activity did not occur on this shift BOWEL MANAGEMENT - SCORE: 7-IND TRANSFERS: BED, CHAIR, WHEELCHAIR: TRANSFERS: BED, CHAIR, WHEELCHAIR - STEP 1: Does the patient require assistance of a person or device, or need extra time with bed, chair, or whe elchair transfers? Yes. TRANSFERS: BED, CHAIR, WHEELCHAIR - STEP 2: Does the patient require the assistance of a helper? Yes. TRANSFERS: BED, CHAIR, WHEELCHAIR - STEP 3: How much assistance does the patient require from the helper? Steadying/guiding assistance TRANSFERS: BED, CHAIR, WHEELCHAIR - SCORE: 4-MIN TRANSFERS: TOILET: TRANSFERS: TOILET - STEP 1: Does the patient require the assistance of a person or device, or need extra time with toilet transfe rs? Yes. TRANSFERS: TOILET - STEP 2: Does the patient require the assistance of a helper? Yes. TRANSFERS: TOILET - STEP 3: How much assistance does the patient require from the helper? Patient performs half or more of the tr ansferring tasks TRANSFERS: TOILET - STEP 4: Does the patient need only incidental help such as contact guard or steadying during toilet transfer? Yes. TRANSFERS: TOILET - SCORE: 4-MIN TRANSFERS: SHOWER: Activity did not occur on this shift TRANSFERS: SHOWER - SCORE: 0-UNK TRANSFERS: TUB: Activity did not occur on this shift TRANSFERS: TUB - SCORE: 0-UNK LOCOMOTION: WALK: Activity did not occur on this shift LOCOMOTION: WALK - SCORE: 0-UNK LOCOMOTION: WHEELCHAIR: Activity did not occur on this shift LOCOMOTION: WHEELCHAIR - SCORE: 0-UNK COMPREHENSION: COMPREHENSION: TYPE: Both COMPREHENSION - STEP 1: Does the patient require help from a person or device, or need extra time to understand complex and a bstract ideas (such as current events, finances, discharge planning, medical issues, relationships, e tc)? No. COMPREHENSION - STEP 2: Does the patient need extra time, require an assistive device (such as glasses for visual comprehensi on or a hearing aid for auditory comprehension) or does s/he have mild difficulty understanding compl ex and abstract information? Yes. COMPREHENSION - SCORE: 6-ILA EXPRESSION EXPRESSION: TYPE: Both EXPRESSION - STEP 1: Does the patient require help from a person or device, or need extra time expressing complex and abst ract ideas (such as current events, finances, discharge planning, medical issues, relationships, etc) ? Yes. EXPRESSION - STEP 2: Does the patient require help to express basic necessities or ideas (such as hunger, thirst, sleep, s afety, daily schedule, room location, or discomfort) half or more of the time? No. EXPRESSION - STEP 3: How often does the patient need help to express directions and conversation about basic needs? Less t story 10% of the time EXPRESSION - SCORE: 5-SUP SOCIAL INTERACTION: SOCIAL INTERACTION - STEP 1: Does the patient require a helper to interact with others in social and therapeutic situations? No. SOCIAL INTERACTION - STEP 2: Does the patient need extra time in social situations, OR does s/he interact with staff, other patien ts, and family members ONLY in structured environments, OR does s/he require medication for social in teraction? Yes, patient needs extra time SOCIAL INTERACTION - SCORE: 6-ILA PROBLEM SOLVING: PROBLEM SOLVING - STEP 1: Does the patient need help from a person or device, or need extra time to solve complex problems such as managing a checking account or confronting interpersonal problems? Yes. PROBLEM SOLVING - STEP 2: Does the patient solve basic routine problems half or more of the time? Yes. PROBLEM SOLVING - STEP 3: How often does the patient need help to solve basic routine problems? Less than 10% of the time PROBLEM SOLVING - SCORE: 5-SUP MEMORY: MEMORY - STEP 1: Does the patient need help from a person or device, or need extra time to remember frequently encount ered people, daily routines, and executing requests? Yes. MEMORY - STEP 2: How often does the patient need help to remember frequently encountered people, daily routines, and e xecuting requests? Less than 10% of the time MEMORY - SCORE: 5-SUP SIGNATURE PANEL: The following modified sections: Eating - Score, Grooming - Score, Bathing - Score, Dressing - Upper Body - Score, Dressing - Lower Body - Score, Toileting - Score, Bladder Management - Score, Bowel Man agement - Score, Transfers: Bed, Chair, Wheelchair - Score, Transfers: Toilet - Score, Transfers: Lisa wer - Score, Transfers: Tub - Score, Locomotion: Walk - Score, Locomotion: Wheelchair - Score, Compre hension - Score, Expression - Score, Social Interaction - Score, Problem Solving - Score, Memory - Sc ore were [electronically] signed by Raza Harry on Sat May 30 2018 11:02:22 GMT-0500 (Central Daylight Time)
--- NOTE | 2018-05-30 12:14 | FAST ---
ENCOUNTER DATE AND TIME: 05/30/2018 08:00 (CDT) NAME YANICK COOPER DATE OF : 1950 DATE OF ADMISSION: 05/29/2018 17:19 (CDT) PHONE: AGE: 68 SSN# [id number] GENDER: Male ENCOUNTER PHYSICIAN: Dr. Mc Clarke M.D. ADMISSION DIAGNOSIS: - Debility 16 - Debility (16) SEPSIS, UTI, HYPERTENSION, DIABETES MELLITUS. EATING: Activity did not occur on this shift EATING - SCORE: 0-UNK GROOMING: Activity did not occur on this shift GROOMING - SCORE: 0-UNK BATHING: Activity did not occur on this shift BATHING - SCORE: 0-UNK DRESSING - UPPER BODY: Activity did not occur on this shift Patient is not dressing in public clothing ARTICLES SCORE Total number of steps: 0 DRESSING - UPPER BODY - SCORE: 0-UNK DRESSING - LOWER BODY: Activity did not occur on this shift Patient is not dressing in public clothing ARTICLES SCORE Total number of steps: 0 DRESSING - LOWER BODY - SCORE: 0-UNK TOILETING: Activity did not occur on this shift TOILETING - SCORE: 0-UNK BLADDER MANAGEMENT: Activity did not occur on this shift BLADDER MANAGEMENT - SCORE: 7-IND BOWEL MANAGEMENT: Activity did not occur on this shift BOWEL MANAGEMENT - SCORE: 7-IND TRANSFERS: BED, CHAIR, WHEELCHAIR: TRANSFERS: BED, CHAIR, WHEELCHAIR - STEP 1: Does the patient require assistance of a person or device, or need extra time with bed, chair, or whe elchair transfers? Yes. TRANSFERS: BED, CHAIR, WHEELCHAIR - STEP 2: Does the patient require the assistance of a helper? Yes. TRANSFERS: BED, CHAIR, WHEELCHAIR - STEP 3: How much assistance does the patient require from the helper? Steadying/guiding assistance TRANSFERS: BED, CHAIR, WHEELCHAIR - SCORE: 4-MIN TRANSFERS: TOILET: Activity did not occur on this shift TRANSFERS: TOILET - SCORE: 0-UNK TRANSFERS: SHOWER: Activity did not occur on this shift TRANSFERS: SHOWER - SCORE: 0-UNK TRANSFERS: TUB: Activity did not occur on this shift TRANSFERS: TUB - SCORE: 0-UNK LOCOMOTION: WALK: LOCOMOTION: WALK - STEP 1: Does the patient need help from a person or device, or need extra time to walk 150 feet? Yes. LOCOMOTION: WALK - STEP 2: How much assistance does the patient require to walk a minimum of 150 feet? Patient walks less than 1 50 feet - but more than 50 feet - with the assistance of only one helper LOCOMOTION: WALK - SCORE: 2-MAX LOCOMOTION: WHEELCHAIR: LOCOMOTION: WHEELCHAIR - STEP 1: Does the patient need help to go 150 feet in a wheelchair? Yes. LOCOMOTION: WHEELCHAIR - STEP 2: How much assistance does the patient need from the helper? Patient goes less than 150 feet - but more than 50 feet - with the assistance of only one helper LOCOMOTION: WHEELCHAIR - SCORE: 2-MAX LOCOMOTION: STAIRS: LOCOMOTION: STAIRS - STEP 1: Does the patient need help to go up and down 12 to 14 stairs? Yes. LOCOMOTION: STAIRS - STEP 2: How much assistance does the patient need from the helper to go a minimum of 12 to 14 stairs? The pat ient goes less than 12 stairs, but at least 4 stairs LOCOMOTION: STAIRS - SCORE: 2-MAX COMPREHENSION: COMPREHENSION - SCORE: 0-UNK EXPRESSION EXPRESSION - SCORE: 0-UNK SOCIAL INTERACTION: SOCIAL INTERACTION - SCORE: 0-UNK PROBLEM SOLVING: PROBLEM SOLVING - SCORE: 0-UNK MEMORY: MEMORY - SCORE: 0-UNK SIGNATURE PANEL: The following modified sections: Transfers: Bed, Chair, Wheelchair - Score, Transfers: Toilet - Score , Locomotion: Walk - Score, Locomotion: Wheelchair - Score, Locomotion: Stairs - Score were [sheryl orozco] signed by Jaspreet Bhat on Sat May 30 2018 12:13:14 GMT-0500 (Central Daylight Time)
--- NOTE | 2018-05-30 18:56 | RAD REPORT ---
EXAM DESCRIPTION: RAD - Neck Soft Tissue - 05/30/2018 6:32 pm CLINICAL HISTORY: Posterior neck pain COMPARISON: CT 2013 TECHNIQUE: AP and lateral views of the soft tissue neck performed FINDINGS: No prevertebral soft tissue thickening. No foreign body or abnormal air density. Epiglot tis is normal. Tonsillar and adenoid tissue within normal limits as well. Advanced disc degenerativ e change present at C3-4, C4-5 and C5-6. Below C5-6 spine is obscured by soft tissues. There is a ret rolisthesis of C3 on C4 and C4 on C5. IMPRESSION: Prominent cervical spine degenerative change with out an acute or destructive bone proce ss. No suspicious soft tissue finding.
[2018-05-30] MEDS: MAGNESIUM OXIDE 400 MG TAB PO SCH (21:00)
[2018-05-30] MEDS: MELATONIN 3 MG TABLET PO PRN (21:06)
[2018-05-30] MEDS: ROSUVASTATIN 10 MG TAB PO SCH (21:06)
[2018-05-30] MEDS: DOCUSATE NA/SENNA CONC 1 TAB PO SCH (21:11)
[2018-05-31] MEDS: HYDROCODONE/APAP 5/325 MG TAB PO PRN ×4 (00:36→18:33)
--- NOTE | 2018-05-31 03:13 | FAST ---
SHIFT START DATE/TIME: 05/30/2018 19:00 (CDT) SHIFT END DATE/TIME: 05/31/2018 07:00 (CDT) NAME YANICK COOPER DATE OF : 1950 DATE OF ADMISSION: 05/29/2018 17:19 (CDT) PHONE: AGE: 68 SSN# [id number] GENDER: Male ENCOUNTER PHYSICIAN: Dr. Mc Clarke M.D. ADMISSION DIAGNOSIS: - Debility 16 - Debility (16) SEPSIS, UTI, HYPERTENSION, DIABETES MELLITUS. EATING: Activity did not occur on this shift EATING - SCORE: 0-UNK GROOMING: Activity did not occur on this shift GROOMING - SCORE: 0-UNK BATHING: Activity did not occur on this shift BATHING - SCORE: 0-UNK DRESSING - UPPER BODY: Activity did not occur on this shift ARTICLES SCORE Total number of steps: 0 DRESSING - UPPER BODY - SCORE: 0-UNK DRESSING - LOWER BODY: Activity did not occur on this shift ARTICLES SCORE Total number of steps: 0 DRESSING - LOWER BODY - SCORE: 0-UNK TOILETING: Activity did not occur on this shift TOILETING - SCORE: 0-UNK BLADDER MANAGEMENT: [place] removes incontinent device (Depends, pull ups, etc.); cleans the patient after accident / inco ntinent episode; and, applies new incontinent device. BLADDER MANAGEMENT - SCORE: 1-DEP BOWEL MANAGEMENT: Activity did not occur on this shift BOWEL MANAGEMENT - SCORE: 7-IND TRANSFERS: BED, CHAIR, WHEELCHAIR: TRANSFERS: BED, CHAIR, WHEELCHAIR - STEP 1: Does the patient require assistance of a person or device, or need extra time with bed, chair, or whe elchair transfers? Yes. TRANSFERS: BED, CHAIR, WHEELCHAIR - STEP 2: Does the patient require the assistance of a helper? Yes. TRANSFERS: BED, CHAIR, WHEELCHAIR - STEP 3: How much assistance does the patient require from the helper? Lifting of the legs TRANSFERS: BED, CHAIR, WHEELCHAIR - STEP 4: How many legs does the patient require the helper to lift? both legs TRANSFERS: BED, CHAIR, WHEELCHAIR - SCORE: 3-MOD TRANSFERS: TOILET: Activity did not occur on this shift TRANSFERS: TOILET - SCORE: 0-UNK TRANSFERS: SHOWER: Activity did not occur on this shift TRANSFERS: SHOWER - SCORE: 0-UNK TRANSFERS: TUB: Activity did not occur on this shift TRANSFERS: TUB - SCORE: 0-UNK LOCOMOTION: WALK: Activity did not occur on this shift LOCOMOTION: WALK - SCORE: 0-UNK LOCOMOTION: WHEELCHAIR: Activity did not occur on this shift LOCOMOTION: WHEELCHAIR - SCORE: 0-UNK COMPREHENSION: COMPREHENSION: TYPE: Both COMPREHENSION - STEP 1: Does the patient require help from a person or device, or need extra time to understand complex and a bstract ideas (such as current events, finances, discharge planning, medical issues, relationships, e tc)? No. COMPREHENSION - STEP 2: Does the patient need extra time, require an assistive device (such as glasses for visual comprehensi on or a hearing aid for auditory comprehension) or does s/he have mild difficulty understanding compl ex and abstract information? Yes. COMPREHENSION - SCORE: 6-ILA EXPRESSION EXPRESSION: TYPE: Both EXPRESSION - STEP 1: Does the patient require help from a person or device, or need extra time expressing complex and abst ract ideas (such as current events, finances, discharge planning, medical issues, relationships, etc) ? No. EXPRESSION - STEP 2: Does the patient need extra time, require an assistive device (such as augmentive communication syste m or a communication board), OR does s/he have mild difficulty expressing complex and abstract ideas (including mild dysarthria or mild word-find problems)? No. EXPRESSION - SCORE: 7-IND SOCIAL INTERACTION: SOCIAL INTERACTION - STEP 1: Does the patient require a helper to interact with others in social and therapeutic situations? No. SOCIAL INTERACTION - STEP 2: Does the patient need extra time in social situations, OR does s/he interact with staff, other patien ts, and family members ONLY in structured environments, OR does s/he require medication for social in teraction? No. SOCIAL INTERACTION - SCORE: 7-IND PROBLEM SOLVING: Patient requires bed/chair alarms due to attempts to get up unassisted when helper is needed. PROBLEM SOLVING - STEP 1: How often do the bed/chair alarms go off? Occasionally - the alarms go off about 25% or less PROBLEM SOLVING - SCORE: 4-MIN MEMORY: MEMORY - STEP 1: How often do the bed/chair alarms go off? Occasionally - the alarms go off about 25% of the time or l ess MEMORY - SCORE: 4-MIN SIGNATURE PANEL: The following modified sections: Eating - Score, Grooming - Score, Bathing - Score, Dressing - Upper Body - Score, Dressing - Lower Body - Score, Toileting - Score, Bladder Management - Score, Bowel Man agement - Score, Transfers: Bed, Chair, Wheelchair - Score, Transfers: Toilet - Score, Transfers: Lisa wer - Score, Transfers: Tub - Score, Locomotion: Walk - Score, Locomotion: Wheelchair - Score, Compre hension - Score, Expression - Score, Social Interaction - Score, Problem Solving - Score, Memory - Sc ore were [electronically] signed by Alicia Woods CNA on FriMay 31 2018 03:11:27 T-0500 ([place] Da ylight Time)
[2018-05-31] MEDS: METOPROLOL XL 25 MG TAB PO SCH ×2 (04:59→17:25)
[2018-05-31] MEDS: TRESIBA 50 UNIT SQ SCH ×3 (07:44→10:37)
[2018-05-31] MEDS: INSULIN -REGULAR HUMAN 50 UNIT/0.5 ML ML SQ SCH ×4 (07:44→20:30)
[2018-05-31] MEDS: PREGABALIN 50 MG CAP PO SCH ×2 (08:00→20:28)
[2018-05-31] MEDS: MAGNESIUM OXIDE 400 MG TAB PO SCH ×2 (08:52→20:29)
[2018-05-31] MEDS: APIXABAN 2.5 MG TABLET PO SCH ×2 (08:52→20:28)
[2018-05-31] MEDS: CLOPIDOGREL 75 MG TABLET PO SCH (08:52)
[2018-05-31] MEDS: ASPIRIN 81 MG CHEWABLE TABLET PO SCH (08:53)
[2018-05-31] MEDS: FOLIC ACID 1 MG TABLET PO SCH (08:53)
[2018-05-31] MEDS: TOLTERODINE LA 4 MG CAP PO SCH (08:53)
[2018-05-31] MEDS: IRBESARTAN 150 MG TAB PO SCH (08:54)
[2018-05-31] MEDS: EZETIMIBE 10 MG TAB PO SCH (08:54)
[2018-05-31] MEDS: AMOX/K CLAV 500 MG TAB PO SCH ×2 (08:54→20:28)
--- NOTE | 2018-05-31 12:55 | FAST ---
SHIFT START DATE/TIME: 05/31/2018 07:00 (CDT) SHIFT END DATE/TIME: 05/31/2018 19:00 (CDT) NAME YANICK COOPER DATE OF : 1950 DATE OF ADMISSION: 05/29/2018 17:19 (CDT) PHONE: AGE: 68 N# [id number] GENDER: Male ENCOUNTER PHYSICIAN: Dr. Mc Clarke M.D. ADMISSION DIAGNOSIS: - Debility 16 - Debility (16) SEPSIS, UTI, HYPERTENSION, DIABETES MELLITUS. EATING: EATING - STEP 1: Does the patient require the assistance of a person or device, or need extra time when eating? Yes. EATING - STEP 2: Does the patient require the assistance of a helper? Yes. EATING - STEP 3: Does the patient perform half or more of the eating tasks? Yes. EATING - STEP 4: Does the patient need only supervision, cuing, coaxing OR help to apply an orthosis OR help to cut fo od, open containers, pour liquids, or butter bread? Yes. EATING - SCORE: 5-SUP GROOMING: Comb/brush hair Oral care Wash, rinse, and dry face Wash, rinse, and dry hands GROOMING - STEP 1: Does the patient require the assistance of a person or device, or need extra time when grooming? Yes. GROOMING - STEP 2: Does the patient require the assistance of a helper? Yes. GROOMING - STEP 3: How much assistance does the patient require from the helper? Cuing, coaxing, instructions, or encour agement for completion of grooming GROOMING - SCORE: 5-SUP BATHING: Activity did not occur on this shift BATHING - SCORE: 0-UNK DRESSING - UPPER BODY: Activity did not occur on this shift ARTICLES SCORE Total number of steps: 0 DRESSING - UPPER BODY - SCORE: 0-UNK DRESSING - LOWER BODY: Activity did not occur on this shift ARTICLES SCORE Total number of steps: 0 DRESSING - LOWER BODY - SCORE: 0-UNK TOILETING: TOILETING - STEP 1: Does the patient require the assistance of a person or device, or need extra time with toileting? Yes . TOILETING - STEP 2: Does the patient require the assistance of a helper? Yes. TOILETING - STEP 3: How much assistance does the patient require from the helper? Hands-on assistance from the helper TOILETING - STEP 4: Of the 3 tasks: 1) Adjusting clothing prior to use, 2) Cleansing of perineal area, 3) Adjusting clot margaret after use; How many tasks does the patient perform WITHOUT assistance of the helper? Two tasks TOILETING - SCORE: 3-MOD BLADDER MANAGEMENT: [place] removes incontinent device (Depends, pull ups, etc.); cleans the patient after accident / inco ntinent episode; and, applies new incontinent device. BLADDER MANAGEMENT - SCORE: 1-DEP BLADDER MANAGEMENT - FREQUENCY OF ACCIDENTS: BLADDER MANAGEMENT(FA) - STEP 1: How many accidents has the patient had during the current shift? 2 BOWEL MANAGEMENT: Activity did not occur on this shift BOWEL MANAGEMENT - SCORE: 7-IND TRANSFERS: BED, CHAIR, WHEELCHAIR: TRANSFERS: BED, CHAIR, WHEELCHAIR - STEP 1: Does the patient require assistance of a person or device, or need extra time with bed, chair, or whe elchair transfers? Yes. TRANSFERS: BED, CHAIR, WHEELCHAIR - STEP 2: Does the patient require the assistance of a helper? Yes. TRANSFERS: BED, CHAIR, WHEELCHAIR - STEP 3: How much assistance does the patient require from the helper? Steadying/guiding assistance TRANSFERS: BED, CHAIR, WHEELCHAIR - SCORE: 4-MIN TRANSFERS: TOILET: TRANSFERS: TOILET - STEP 1: Does the patient require the assistance of a person or device, or need extra time with toilet transfe rs? Yes. TRANSFERS: TOILET - STEP 2: Does the patient require the assistance of a helper? Yes. TRANSFERS: TOILET - STEP 3: How much assistance does the patient require from the helper? Patient performs half or more of the tr ansferring tasks TRANSFERS: TOILET - STEP 4: Does the patient need only incidental help such as contact guard or steadying during toilet transfer? Yes. TRANSFERS: TOILET - SCORE: 4-MIN TRANSFERS: SHOWER: Activity did not occur on this shift TRANSFERS: SHOWER - SCORE: 0-UNK TRANSFERS: TUB: Activity did not occur on this shift TRANSFERS: TUB - SCORE: 0-UNK LOCOMOTION: WALK: Activity did not occur on this shift LOCOMOTION: WALK - SCORE: 0-UNK LOCOMOTION: WHEELCHAIR: Activity did not occur on this shift LOCOMOTION: WHEELCHAIR - SCORE: 0-UNK COMPREHENSION: COMPREHENSION: TYPE: Both COMPREHENSION - STEP 1: Does the patient require help from a person or device, or need extra time to understand complex and a bstract ideas (such as current events, finances, discharge planning, medical issues, relationships, e tc)? No. COMPREHENSION - STEP 2: Does the patient need extra time, require an assistive device (such as glasses for visual comprehensi on or a hearing aid for auditory comprehension) or does s/he have mild difficulty understanding compl ex and abstract information? Yes. COMPREHENSION - SCORE: 6-ILA EXPRESSION EXPRESSION: TYPE: Both EXPRESSION - STEP 1: Does the patient require help from a person or device, or need extra time expressing complex and abst ract ideas (such as current events, finances, discharge planning, medical issues, relationships, etc) ? Yes. EXPRESSION - STEP 2: Does the patient require help to express basic necessities or ideas (such as hunger, thirst, sleep, s afety, daily schedule, room location, or discomfort) half or more of the time? No. EXPRESSION - STEP 3: How often does the patient need help to express directions and conversation about basic needs? Less t story 10% of the time EXPRESSION - SCORE: 5-SUP SOCIAL INTERACTION: SOCIAL INTERACTION - STEP 1: Does the patient require a helper to interact with others in social and therapeutic situations? Yes. SOCIAL INTERACTION - STEP 2: Does the patient interact appropriately half or more of the time? Yes. SOCIAL INTERACTION - STEP 3: How often does the patient need help to interact appropriately? Less than 10% of the time SOCIAL INTERACTION - SCORE: 5-SUP PROBLEM SOLVING: PROBLEM SOLVING - STEP 1: Does the patient need help from a person or device, or need extra time to solve complex problems such as managing a checking account or confronting interpersonal problems? Yes. PROBLEM SOLVING - STEP 2: Does the patient solve basic routine problems half or more of the time? Yes. PROBLEM SOLVING - STEP 3: How often does the patient need help to solve basic routine problems? Less than 10% of the time PROBLEM SOLVING - SCORE: 5-SUP MEMORY: MEMORY - STEP 1: Does the patient need help from a person or device, or need extra time to remember frequently encount ered people, daily routines, and executing requests? Yes. MEMORY - STEP 2: How often does the patient need help to remember frequently encountered people, daily routines, and e xecuting requests? Less than 10% of the time MEMORY - SCORE: 5-SUP SIGNATURE PANEL: The following modified sections: Eating - Score, Grooming - Score, Bathing - Score, Dressing - Upper Body - Score, Dressing - Lower Body - Score, Toileting - Score, Bladder Management - Score, Bowel Man agement - Score, Transfers: Bed, Chair, Wheelchair - Score, Transfers: Toilet - Score, Transfers: Lisa wer - Score, Transfers: Tub - Score, Locomotion: Walk - Score, Locomotion: Wheelchair - Score, Compre hension - Score, Expression - Score, Social Interaction - Score, Problem Solving - Score, Memory - Sc ore were [electronically] signed by Raza Harry on FriMay 31 2018 12:55:25 GMT-0500 (Central Daylight Time)
[2018-05-31] MEDS ORDERED: FLEET ENEMA ADULT PR PRN ×2 (13:05→17:40)
[2018-05-31] MEDS: BISACODYL 10 MG RECTAL SUPP PR PRN (14:08)
[2018-05-31] MEDS: ROSUVASTATIN 10 MG TAB PO SCH (20:28)
[2018-05-31] MEDS: LIDOCAINE 5% PATCH TOP SCH (20:28)
[2018-05-31] MEDS: MELATONIN 3 MG TABLET PO PRN (20:30)
[2018-05-31] MEDS: DOCUSATE NA/SENNA CONC 1 TAB PO SCH (20:30)
--- NOTE | 2018-06-01 01:02 | FAST ---
SHIFT START DATE/TIME: 05/31/2018 19:00 (CDT) SHIFT END DATE/TIME: 06/01/2018 07:00 (CDT) NAME YANICK COOPER DATE OF : 1950 DATE OF ADMISSION: 05/29/2018 17:19 (CDT) PHONE: AGE: 68 SSN# [id number] GENDER: Male ENCOUNTER PHYSICIAN: Dr. Mc Clarke M.D. ADMISSION DIAGNOSIS: - Debility 16 - Debility (16) SEPSIS, UTI, HYPERTENSION, DIABETES MELLITUS. EATING: Activity did not occur on this shift EATING - SCORE: 0-UNK GROOMING: Activity did not occur on this shift GROOMING - SCORE: 0-UNK BATHING: Activity did not occur on this shift BATHING - SCORE: 0-UNK DRESSING - UPPER BODY: Activity did not occur on this shift ARTICLES SCORE Total number of steps: 0 DRESSING - UPPER BODY - SCORE: 0-UNK DRESSING - LOWER BODY: Activity did not occur on this shift ARTICLES SCORE Total number of steps: 0 DRESSING - LOWER BODY - SCORE: 0-UNK TOILETING: Activity did not occur on this shift TOILETING - SCORE: 0-UNK BLADDER MANAGEMENT: [place] removes incontinent device (Depends, pull ups, etc.); cleans the patient after accident / inco ntinent episode; and, applies new incontinent device. BLADDER MANAGEMENT - SCORE: 1-DEP BOWEL MANAGEMENT: Activity did not occur on this shift BOWEL MANAGEMENT - SCORE: 7-IND TRANSFERS: BED, CHAIR, WHEELCHAIR: Patient requires more than one helper and/or the use of a mechanical lift is utilized TRANSFERS: BED, CHAIR, WHEELCHAIR - SCORE: 1-DEP TRANSFERS: TOILET: Activity did not occur on this shift TRANSFERS: TOILET - SCORE: 0-UNK TRANSFERS: SHOWER: Activity did not occur on this shift TRANSFERS: SHOWER - SCORE: 0-UNK TRANSFERS: TUB: Activity did not occur on this shift TRANSFERS: TUB - SCORE: 0-UNK LOCOMOTION: WALK: Activity did not occur on this shift LOCOMOTION: WALK - SCORE: 0-UNK LOCOMOTION: WHEELCHAIR: Activity did not occur on this shift LOCOMOTION: WHEELCHAIR - SCORE: 0-UNK COMPREHENSION: COMPREHENSION: TYPE: Both COMPREHENSION - STEP 1: Does the patient require help from a person or device, or need extra time to understand complex and a bstract ideas (such as current events, finances, discharge planning, medical issues, relationships, e tc)? No. COMPREHENSION - STEP 2: Does the patient need extra time, require an assistive device (such as glasses for visual comprehensi on or a hearing aid for auditory comprehension) or does s/he have mild difficulty understanding compl ex and abstract information? Yes. COMPREHENSION - SCORE: 6-ILA EXPRESSION EXPRESSION: TYPE: Both EXPRESSION - STEP 1: Does the patient require help from a person or device, or need extra time expressing complex and abst ract ideas (such as current events, finances, discharge planning, medical issues, relationships, etc) ? No. EXPRESSION - STEP 2: Does the patient need extra time, require an assistive device (such as augmentive communication syste m or a communication board), OR does s/he have mild difficulty expressing complex and abstract ideas (including mild dysarthria or mild word-find problems)? No. EXPRESSION - SCORE: 7-IND SOCIAL INTERACTION: SOCIAL INTERACTION - STEP 1: Does the patient require a helper to interact with others in social and therapeutic situations? No. SOCIAL INTERACTION - STEP 2: Does the patient need extra time in social situations, OR does s/he interact with staff, other patien ts, and family members ONLY in structured environments, OR does s/he require medication for social in teraction? Yes, patient needs extra time SOCIAL INTERACTION - SCORE: 6-ILA PROBLEM SOLVING: Patient requires bed/chair alarms due to attempts to get up unassisted when helper is needed. PROBLEM SOLVING - STEP 1: How often do the bed/chair alarms go off? Occasionally - the alarms go off about 25% or less PROBLEM SOLVING - SCORE: 4-MIN MEMORY: MEMORY - STEP 1: How often do the bed/chair alarms go off? Occasionally - the alarms go off about 25% of the time or l ess MEMORY - SCORE: 4-MIN SIGNATURE PANEL: The following modified sections: Eating - Score, Grooming - Score, Bathing - Score, Dressing - Upper Body - Score, Dressing - Lower Body - Score, Toileting - Score, Bladder Management - Score, Bowel Man agement - Score, Transfers: Bed, Chair, Wheelchair - Score, Transfers: Toilet - Score, Transfers: Lisa wer - Score, Transfers: Tub - Score, Locomotion: Walk - Score, Locomotion: Wheelchair - Score, Compre hension - Score, Expression - Score, Social Interaction - Score, Problem Solving - Score, Memory - Sc ore were [electronically] signed by Alicia Woods CNA on FriJun 01 2018 01:01:33 T-0500 ([place] Da ylight Time)
[2018-06-01] MEDS: HYDROCODONE/APAP 5/325 MG TAB PO PRN ×2 (04:56→08:37)
[2018-06-01] MEDS: METOPROLOL XL 25 MG TAB PO SCH ×2 (05:00→17:58)
[2018-06-01] MEDS: INSULIN -REGULAR HUMAN 50 UNIT/0.5 ML ML SQ SCH ×4 (07:54→21:26)
[2018-06-01] MEDS: TRESIBA 50 UNIT SQ SCH (08:00)
[2018-06-01] MEDS: IRBESARTAN 150 MG TAB PO SCH (08:35)
[2018-06-01] MEDS: CLOPIDOGREL 75 MG TABLET PO SCH (08:36)
[2018-06-01] MEDS: FOLIC ACID 1 MG TABLET PO SCH (08:36)
[2018-06-01] MEDS: EZETIMIBE 10 MG TAB PO SCH (08:36)
[2018-06-01] MEDS: APIXABAN 2.5 MG TABLET PO SCH ×2 (08:36→21:04)
[2018-06-01] MEDS: ASPIRIN 81 MG CHEWABLE TABLET PO SCH (08:36)
[2018-06-01] MEDS: MAGNESIUM OXIDE 400 MG TAB PO SCH ×2 (08:36→21:04)
[2018-06-01] MEDS: AMOX/K CLAV 500 MG TAB PO SCH ×2 (08:36→21:03)
[2018-06-01] MEDS: TOLTERODINE LA 4 MG CAP PO SCH (08:44)
--- NOTE | 2018-06-01 10:39 | FAST ---
ENCOUNTER DATE AND TIME: 06/01/2018 08:00 (CDT) NAME YANICK COOPER DATE OF : 1950 DATE OF ADMISSION: 05/29/2018 17:19 (CDT) PHONE: AGE: 68 SSN# [id number] GENDER: Male ENCOUNTER PHYSICIAN: Dr. Mc Clarke M.D. ADMISSION DIAGNOSIS: - Debility 16 - Debility (16) SEPSIS, UTI, HYPERTENSION, DIABETES MELLITUS. EATING: Activity did not occur on this shift EATING - SCORE: 0-UNK GROOMING: Activity did not occur on this shift GROOMING - SCORE: 0-UNK BATHING: Activity did not occur on this shift BATHING - SCORE: 0-UNK DRESSING - UPPER BODY: Activity did not occur on this shift Patient is not dressing in public clothing ARTICLES SCORE Total number of steps: 0 DRESSING - UPPER BODY - SCORE: 0-UNK DRESSING - LOWER BODY: Activity did not occur on this shift Patient is not dressing in public clothing ARTICLES SCORE Total number of steps: 0 DRESSING - LOWER BODY - SCORE: 0-UNK TOILETING: Activity did not occur on this shift TOILETING - SCORE: 0-UNK BLADDER MANAGEMENT: Activity did not occur on this shift BLADDER MANAGEMENT - SCORE: 7-IND BOWEL MANAGEMENT: Activity did not occur on this shift BOWEL MANAGEMENT - SCORE: 7-IND TRANSFERS: BED, CHAIR, WHEELCHAIR: TRANSFERS: BED, CHAIR, WHEELCHAIR - STEP 1: Does the patient require assistance of a person or device, or need extra time with bed, chair, or whe elchair transfers? Yes. TRANSFERS: BED, CHAIR, WHEELCHAIR - STEP 2: Does the patient require the assistance of a helper? Yes. TRANSFERS: BED, CHAIR, WHEELCHAIR - STEP 3: How much assistance does the patient require from the helper? Lifting of the patient TRANSFERS: BED, CHAIR, WHEELCHAIR - STEP 4: Does the helper lift the patient ONLY up? ONLY down? Up AND Down? ONLY up. TRANSFERS: BED, CHAIR, WHEELCHAIR - SCORE: 3-MOD TRANSFERS: TOILET: Activity did not occur on this shift TRANSFERS: TOILET - SCORE: 0-UNK TRANSFERS: SHOWER: Activity did not occur on this shift TRANSFERS: SHOWER - SCORE: 0-UNK TRANSFERS: TUB: Activity did not occur on this shift TRANSFERS: TUB - SCORE: 0-UNK LOCOMOTION: WALK: LOCOMOTION: WALK - STEP 1: Does the patient need help from a person or device, or need extra time to walk 150 feet? Yes. LOCOMOTION: WALK - STEP 2: How much assistance does the patient require to walk a minimum of 150 feet? More than incidental help LOCOMOTION: WALK - SCORE: 3-MOD LOCOMOTION: WHEELCHAIR: Activity did not occur on this shift LOCOMOTION: WHEELCHAIR - SCORE: 0-UNK LOCOMOTION: STAIRS: Activity did not occur on this shift LOCOMOTION: STAIRS - SCORE: 0-UNK COMPREHENSION: COMPREHENSION - SCORE: 0-UNK EXPRESSION EXPRESSION - SCORE: 0-UNK SOCIAL INTERACTION: SOCIAL INTERACTION - SCORE: 0-UNK PROBLEM SOLVING: PROBLEM SOLVING - SCORE: 0-UNK MEMORY: MEMORY - SCORE: 0-UNK SIGNATURE PANEL: The following modified sections: Transfers: Bed, Chair, Wheelchair - Score, Transfers: Toilet - Score , Locomotion: Walk - Score, Locomotion: Wheelchair - Score, Locomotion: Stairs - Score were [sheryl orozco] signed by Zoran Colón PT on FriJun 01 2018 10:38:15 [facility]-0500 (Central Daylight Time)
--- NOTE | 2018-06-01 15:25 | FAST ---
ENCOUNTER DATE AND TIME: 06/01/2018 08:00 (CDT) NAME YANICK COOPER DATE OF : 1950 DATE OF ADMISSION: 05/29/2018 17:19 (CDT) PHONE: AGE: 68 N# [id number] GENDER: Male ENCOUNTER PHYSICIAN: Dr. Mc Clarke M.D. ADMISSION DIAGNOSIS: - Debility 16 - Debility (16) SEPSIS, UTI, HYPERTENSION, DIABETES MELLITUS. EATING: Activity did not occur on this shift EATING - SCORE: 0-UNK GROOMING: Comb/brush hair Wash, rinse, and dry face Wash, rinse, and dry hands GROOMING - STEP 1: Does the patient require the assistance of a person or device, or need extra time when grooming? Yes. GROOMING - STEP 2: Does the patient require the assistance of a helper? Yes. GROOMING - STEP 3: How much assistance does the patient require from the helper? Cuing, coaxing, instructions, or encour agement for completion of grooming GROOMING - SCORE: 5-SUP BATHING: Abdomen Buttocks Chest Left arm Left lower leg and foot Left upper leg Perineal area Right arm Right lower leg and foot Right upper leg BATHING - STEP 1: Does the patient require the assistance of a person or device, or need extra time when bathing? Yes. BATHING - STEP 2: Does the patient require the assistance of a helper? Yes. BATHING - STEP 3: How much assistance does the patient require from the helper? More than just incidental help BATHING - STEP 4: What percent of the body parts did the patient bathe WITHOUT the helper? Less than half of the body p arts BATHING - SCORE: 2-MAX DRESSING - UPPER BODY: T-shirt/pullover shirt (four steps) ARTICLES SCORE Total number of steps: 4 DRESSING - UPPER BODY - STEP 1: Does the patient require help from a person or device, or need extra time when dressing above the [address]? Yes. DRESSING - UPPER BODY - STEP 2: Does the patient require the assistance of a helper? Yes. DRESSING - UPPER BODY - STEP 3: Does the helper touch the patient while dressing? Yes. DRESSING - UPPER BODY - STEP 4: How many of the total steps does the patient complete on his/her own? 4 DRESSING - UPPER BODY - SCORE: 4-MIN DRESSING - LOWER BODY: Elastic waist pants (three steps) Sock - Left foot (one step) Sock - Right foot (one step) Underwear (three steps) ARTICLES SCORE Total number of steps: 8 DRESSING - LOWER BODY - STEP 1: Does the patient require help from a person or device, or need extra time when dressing below the [address]? Yes. DRESSING - LOWER BODY - STEP 2: Does the patient require the assistance of a helper? Yes. DRESSING - LOWER BODY - STEP 3: Does the helper touch the patient while dressing? Yes. DRESSING - LOWER BODY - STEP 4: How many of the total steps does the patient complete on his/her own? 0 DRESSING - LOWER BODY - STEP 5: Does patient require total assistance for dressing below the waist such as the helper holding clothin g and performing basically all the activities? Yes. DRESSING - LOWER BODY - SCORE: 1-DEP TOILETING: Activity did not occur on this shift TOILETING - SCORE: 0-UNK BLADDER MANAGEMENT: Activity did not occur on this shift BLADDER MANAGEMENT - SCORE: 7-IND BOWEL MANAGEMENT: Activity did not occur on this shift BOWEL MANAGEMENT - SCORE: 7-IND TRANSFERS: BED, CHAIR, WHEELCHAIR: Activity did not occur on this shift TRANSFERS: BED, CHAIR, WHEELCHAIR - SCORE: 0-UNK TRANSFERS: TOILET: Activity did not occur on this shift TRANSFERS: TOILET - SCORE: 0-UNK TRANSFERS: SHOWER: TRANSFERS: SHOWER - STEP 1: Does the patient require the assistance of a person or device, or need extra time with shower transfe rs? Yes. TRANSFERS: SHOWER - STEP 2: Does the patient require the assistance of a helper? Yes. TRANSFERS: SHOWER - STEP 3: How much assistance does the patient require from the helper? More than incidental help TRANSFERS: SHOWER - STEP 4: How much more help does the patient require from the helper? Lifting the patient up AND down from the wheelchair onto the shower chair TRANSFERS: SHOWER - SCORE: 2-MAX TRANSFERS: TUB: Activity did not occur on this shift TRANSFERS: TUB - SCORE: 0-UNK LOCOMOTION: WALK: Activity did not occur on this shift LOCOMOTION: WALK - SCORE: 0-UNK LOCOMOTION: WHEELCHAIR: Activity did not occur on this shift LOCOMOTION: WHEELCHAIR - SCORE: 0-UNK LOCOMOTION: STAIRS: Activity did not occur on this shift LOCOMOTION: STAIRS - SCORE: 0-UNK COMPREHENSION: COMPREHENSION: TYPE: Both COMPREHENSION - STEP 1: Does the patient require help from a person or device, or need extra time to understand complex and a bstract ideas (such as current events, finances, discharge planning, medical issues, relationships, e tc)? Yes. COMPREHENSION - STEP 2: Does the patient require help to understand questions or statements about basic needs or ideas (such as hunger, thirst, sleep, safety, daily schedule, room location, or discomfort) half or more of the t mary? No. COMPREHENSION - STEP 3: How often does the patient need help to understand directions and conversation about basic needs? 10% - 24% of the time COMPREHENSION - SCORE: 4-MIN EXPRESSION EXPRESSION: TYPE: Both EXPRESSION - STEP 1: Does the patient require help from a person or device, or need extra time expressing complex and abst ract ideas (such as current events, finances, discharge planning, medical issues, relationships, etc) ? Yes. EXPRESSION - STEP 2: Does the patient require help to express basic necessities or ideas (such as hunger, thirst, sleep, s afety, daily schedule, room location, or discomfort) half or more of the time? No. EXPRESSION - STEP 3: How often does the patient need help to express directions and conversation about basic needs? 10-24% of the time EXPRESSION - SCORE: 4-MIN SOCIAL INTERACTION: SOCIAL INTERACTION - STEP 1: Does the patient require a helper to interact with others in social and therapeutic situations? Yes. SOCIAL INTERACTION - STEP 2: Does the patient interact appropriately half or more of the time? Yes. SOCIAL INTERACTION - STEP 3: How often does the patient need help to interact appropriately? 10-24% of the time SOCIAL INTERACTION - SCORE: 4-MIN PROBLEM SOLVING: PROBLEM SOLVING - STEP 1: Does the patient need help from a person or device, or need extra time to solve complex problems such as managing a checking account or confronting interpersonal problems? Yes. PROBLEM SOLVING - STEP 2: Does the patient solve basic routine problems half or more of the time? Yes. PROBLEM SOLVING - STEP 3: How often does the patient need help to solve basic routine problems? 25%-49% of the time PROBLEM SOLVING - SCORE: 3-MOD MEMORY: MEMORY - STEP 1: Does the patient need help from a person or device, or need extra time to remember frequently encount ered people, daily routines, and executing requests? Yes. MEMORY - STEP 2: How often does the patient need help to remember frequently encountered people, daily routines, and e xecuting requests? More than 50% of the time MEMORY - STEP 3: Does the patient need help to remember all of the time OR does s/he not effectively recognize and rem ember? No. Patient does not need help all the time MEMORY - SCORE: 2-MAX SIGNATURE PANEL: The following modified sections: Eating - Score, Grooming - Score, Bathing - Score, Dressing - Upper Body - Score, Dressing - Lower Body - Score, Toileting - Score, Transfers: Bed, Chair, Wheelchair - S core, Transfers: Toilet - Score, Transfers: Tub - Score, Transfers: Shower - Score, Comprehension - S core, Expression - Score, Social Interaction - Score, Problem Solving - Score, Memory - Score were [e lectronically] signed by Sheila Mendez OT on FriJun 01 2018 15:24:59 T-0500 ([place] Daylight T mary)
--- NOTE | 2018-06-01 16:23 | RAD REPORT ---
EXAM DESCRIPTION: RAD - Chest Single View - 06/01/2018 4:08 pm CLINICAL HISTORY: R/O Pneumonia Chest pain. COMPARISON: Chest Single View dated 05/27/2018; Chest Pa And Lat (2 Views) dated 06/06/2015; CHEST PA A ND LAT 2 VIEW dated 03/02/2012; CHEST PA AND LAT 2 VIEW dated 09/27/2011 FINDINGS: Portable technique limits examination quality. The lungs are grossly clear. The heart is normal in size. No displaced fractures.Sternotomy wires. IMPRESSION: No acute intrathoracic process suspected.
--- NOTE | 2018-06-01 17:06 | R.PN ---
ENCOUNTER DATE AND TIME: 06/01/2018 17:01 (CDT) NAME YANICK COOPER DATE OF : 1950 DATE OF ADMISSION: 05/29/2018 17:19 (CDT) SEPSIS, UTI, HYPERTENSION, DIABETES MELLITUSCHIEF COMPLAINT: Debility, urinary tract infection SUBJECTIVE: Pt denied any Shortness of Breath. Pt denied any depression. Ambulated 445' with contact guard to minimum assistance using a rolling walker. WBC 11.0, Hgb 13.1, P lt 213, glucose range 197 to 225. VITAL SIGNS Temperature: 98.2 F SBP/DBP: 119/74 Pulse: 72 Resp: 16 MEDICATION ALLERGIES: ZOLPIDEM ENVIRONMENTAL ALLERGIES: None Known - Substance Allergies None Known - Other Allergies None Known NURSING: - Shower allowing shower - Lab Results blood Sugar Check ACHS ACTIVITIES OOB only with supervision THERAPIES: - Occupational Therapy Evaluate and Treat. - Physical Therapy Evaluate and Treat. PHYSICAL EXAM - Gen Alert and awake Lying in bed No apparent distress Oriented to: person, time, and place - Skin No breakdown No abnormalities - Eyes No abnormalities - ENMT No abnormalities - Neck No abnormalities - CVS RRR - Chest No abnormalities - Resp Clear to auscultation - Abd +bowel sounds - GI nondistended Deferred - No abnormalities - Ext No significant edema - MSK 4+/5 weakness in both lower extremities. Neck muscle spasms. - Neuro No focal neurological deficits. - Psych No abnormalities ASSESSMENT: Pt. is a 68 yo Right-handed white male.On 05/27/2018 he was admitted to [facility] with diagnosis SEPSIS, UTI, HYPERTENSION, DIABETES MELLITUS.His impairment category is Debility 1 6 - Debility (16).Pre-morbidly, Pt. was independent/mod-I in Self-Care, Sphincter Control, Transfers Control, Locomotion, Communication, and Social Cognition; and he had good Sphincter Control.Currentl y, he has deficits of Transfers Control, Locomotion, Endurance, Balance, Safety Awareness, and Self-C are.Pt. is now referred to [facility] for acute in-patient rehabilitation in o rder to maximize patient's functional independence in activities of daily living, strength, ROM, and mobility.- Rehab Goal Patient has realistic goal of being discharged at assistance level 6-[place] to reside at Home with Fam rl/Relatives. MDM/PLAN: - Physical Therapy Gait dysfunction - to improve, our physical therapists will perform initial evaluation of pt's statu s upon admission and devise an individualized program for Gait Training, and Wheel Chair mobility Inability to transfer - to improve, our physical therapists will perform initial evaluation of pt's status upon admission and devise an individualized program for Bed mobility Need for home safety evaluation - to improve, our physical therapists will perform initial evaluatio n of pt's status upon admission and devise an individualized program for Home Evaluation Need in caregiver upon discharge - to improve, our physical therapists will perform initial evaluati on of pt's status upon admission and devise an individualized program for Caregiver Training New precaution - to improve, our physical therapists will perform initial evaluation of pt's status upon admission and devise an individualized program for Patient precaution education Edema - to improve, our physical therapists will perform initial evaluation of pt's status upon admis aki and devise an individualized program for Elevation Training, and Lymphedema Therapy Poor balance - to improve, our physical therapists will perform initial evaluation of pt's status up on admission and devise an individualized program for Balance Training Poor endurance - to improve, our physical therapists will perform initial evaluation of pt's status upon admission and devise an individualized program for Endurance Training Weakness - to improve, our physical therapists will perform initial evaluation of pt's status upon a dmission and devise an individualized program for Aquatic Therapy, Neuromuscular Reeducation, and Str engthening Achieving independence - to improve, our physical therapists will perform initial evaluation of pt's status upon admission and devise an individualized program for Community Reintegration Activities - Occupational Therapy ADL deficits - to improve, our occupation therapists will perform initial evaluation of pt's status upon admission and devise an individualized program for Bathing, Bed mobility, Community Reintegratio n, Cooking, Dressing, Eating, Fine Motor Skills, Grooming, Homemaking, Kitchen Mobility, Laundry, Pat ient Education, Safety Awareness, Splinting - Positioning, Transfers(Toilet, Tub, Shower), and Wheel Chair Management Need for animal caregiver - to improve, our occupation therapists will perform initial evaluation of pt's status upon admission and devise an individualized program for Caregiver Training Weakness - to improve, our occupation therapists will perform initial evaluation of pt's status upon admission and devise an individualized program for Aquatic Therapy, Balance, Endurance, UE ROM, and UE strengthening - Diet Type Continue Regular - Diet - Liquid Texture Continue Regular - Tube Feed Continue N/A - Lab Results blood Sugar Check ACHS - Diet - Solid Texture Continue Regular - Shower allowing shower FUNCTIONAL STATUS: UPDATED AT WEEKLY TEAM CONFERENCE - Bladder Same accident frequency: 7-Ind - No accidents in the past 7 days - Bowel Same accident frequency: 7-Ind - No accidents in the past 7 days - Walking Same score based on distance walked: 3(>=150ft) - Wheelchair Same score based on distance traveled: 0(N/A) FUNCTIONAL STATUS: - Self-Care A. Eating Ind B. Grooming Ind C. Bathing sup D. Dressing - Upper sup E. Dressing - Lower sup F. Toileting CGA - Sphincter Control G: Bladder control Ind H: Bowel control Ind - Transfers Control I. Bed/Chair/Wheelchair CGA J. Toilet CGA K. Tub/Shower ADNO - Locomotion L. Walk/Wheelchair (C) Harley/CGA L. Walk/Wheelchair (W) Harley/CGA M. Stairs ADNO - Communication N. Comprehension (B) Ind O. Expression (B) Ind - Social Cognition P. Social Interaction Ind Q. Problem Solving Ind R. Memory Ind - Endurance Fair - Balance Fair - Safety Awareness Fair CURRENT FUNC. DEFICITS: Transfers Control, Locomotion, Endurance, Balance, Safety Awareness, and Self-Care SIGNATURE PANEL: (CDT)
--- NOTE | 2018-06-01 20:48 | RAD REPORT ---
EXAM DESCRIPTION: RAD - Hip Left 2 View - 06/01/2018 8:39 pm CLINICAL HISTORY: Left hip pain, r/o fracture COMPARISON: No comparisons FINDINGS: Mild arthritic changes are present. No acute fracture or dislocation seen.
--- NOTE | 2018-06-01 20:49 | RAD REPORT ---
EXAM DESCRIPTION: RAD - Hip Right 2 View - 06/01/2018 8:41 pm CLINICAL HISTORY: Right hip pain r/o fracture COMPARISON: No comparisons FINDINGS: Osteoarthritic changes are present involving the right hip. No acute fracture or dislocati on seen.
[2018-06-01] MEDS: DOCUSATE NA/SENNA CONC 1 TAB PO SCH (21:00)
[2018-06-01] MEDS: PREGABALIN 50 MG CAP PO SCH (21:03)
[2018-06-01] MEDS: ROSUVASTATIN 10 MG TAB PO SCH (21:04)
[2018-06-01] MEDS: MELATONIN 3 MG TABLET PO PRN (21:04)
[2018-06-01] MEDS: LIDOCAINE 5% PATCH TOP SCH (21:05)
[2018-06-01] MEDS ORDERED: INSULIN -REGULAR HUMAN 50 UNIT/0.5 ML ML ONE (21:36)
[2018-06-02] MEDS: METOPROLOL XL 25 MG TAB PO SCH ×2 (05:23→17:03)
[2018-06-02] MEDS: INSULIN -REGULAR HUMAN 50 UNIT/0.5 ML ML SQ SCH ×4 (07:10→20:19)
[2018-06-02] MEDS: TRESIBA 50 UNIT SQ SCH (08:00)
[2018-06-02] MEDS ORDERED: CARBIDOPA/LEVODOPA 25/100 TAB PO SCH (08:00)
[2018-06-02] MEDS: TOLTERODINE LA 4 MG CAP PO SCH (08:54)
[2018-06-02] MEDS: FOLIC ACID 1 MG TABLET PO SCH (08:54)
[2018-06-02] MEDS: HYDROCODONE/APAP 5/325 MG TAB PO PRN (08:55)
[2018-06-02] MEDS: ASPIRIN 81 MG CHEWABLE TABLET PO SCH (08:55)
[2018-06-02] MEDS: MAGNESIUM OXIDE 400 MG TAB PO SCH ×2 (08:55→20:18)
[2018-06-02] MEDS: EZETIMIBE 10 MG TAB PO SCH (08:55)
[2018-06-02] MEDS: CLOPIDOGREL 75 MG TABLET PO SCH (08:55)
[2018-06-02] MEDS: IRBESARTAN 150 MG TAB PO SCH (08:55)
[2018-06-02] MEDS: APIXABAN 2.5 MG TABLET PO SCH ×2 (08:55→20:18)
[2018-06-02] MEDS: AMOX/K CLAV 500 MG TAB PO SCH ×2 (08:55→20:17)
--- NOTE | 2018-06-02 09:54 | RAD REPORT ---
EXAM DESCRIPTION: CT - Ct Stroke Brain Wo Cont - 06/02/2018 9:45 am CLINICAL HISTORY: r/o bleed or stroke Headache, CVA symptomology COMPARISON: Head angio dated 05/27/2018; Ct Stroke Brain Wo Cont dated 05/27/2018; C Spine Wo Con dated 06/02/2018 TECHNIQUE: All CT scans are performed using dose optimization technique as appropriate and may inclu de automated exposure control or mA/KV adjustment according to patient size. FINDINGS: No intracranial hemorrhage, hydrocephalus or extra-axial fluid collection.Moderate general ized brain atrophy is present with mild periventricular and deep white matter chronic microvascular i schemic changes.No areas of brain edema or evidence of midline shift. Small amount of fluid is seen in the right mastoid air cell. The paranasal sinuses and mastoids are o therwise clear. The calvarium is intact. IMPRESSION: No acute intracranial abnormality. If there is continued clinical concern for CVA, MR i maging of the brain would be recommended. The findings were discussed with Dr. Clarke On 06/02/2018 at 9:50 a.m. by telephone.
--- NOTE | 2018-06-02 10:11 | RAD REPORT ---
EXAM DESCRIPTION: CT - C Spine Wo Con - 06/02/2018 9:45 am CLINICAL HISTORY: neck pain Neck pain, radiculopathy COMPARISON: SOFT TISSUE NECK W CONTRAST dated 07/24/2012 FINDINGS: The cervical vertebral body heights are maintained. Multilevel disc thinning with posterio r osteophyte formation seen throughout the midcervical levels. Findings are most notable at C3-4, C4- 5 and C5-6. No evidence of acute cervical spine fracture or subluxation. Prevertebral soft tissues are normal in thickness. Carotid atherosclerosis is present. IMPRESSION: Negative for acute cervical spine abnormality. Moderate midcervical spondylosis. All CT scans are performed using dose optimization technique as appropriate and may include automated exposure control or mA/KV adjustment according to patient size.
--- NOTE | 2018-06-02 11:55 | RAD REPORT ---
EXAM DESCRIPTION: MRI - Brain W/Wo Cont - 06/02/2018 11:36 am CLINICAL HISTORY: CVA, weakness, stroke-like symptoms COMPARISON: CT head same date TECHNIQUE: Sagittal and axial T1-weighted images were obtained. Axial PD/heavily T2-weighted and T2- FLAIR images were obtained along with axial DWI/ADC mapping sequences. Coronal heavily T2 weighted s equence obtained. Axial and coronal post-contrast T1-weighted images were also obtained. A 20 ml Mul tihance contrast following utilized. FINDINGS: No intracranial hemorrhage, mass or acute infarction. There is no edema or shift of midli ne structures. No extra-axial fluid collections. Jauregui-matter/white matter junction is preserved. Sig nal voids are seen as a normal finding in the major intracranial vessels. Patient has moderate severi ty atrophy slightly greater than typically seen at this age. Ventricular enlargement is in proportion to the volume loss. There is very little chronic ischemic change identifiable. No globe or orbital content abnormality. No suspicious sella or supra sella finding. Post-contrast images show normal enhancement. No dural thickening. Mastoid air cells and paranasal sinuses are clear. IMPRESSION: No acute infarction changes. No acute intracranial finding. Moderate severity atrophy with ventricular size in proportion. Chronic ischemic change is very minima l.
--- NOTE | 2018-06-02 14:05 | FAST ---
SHIFT START DATE/TIME: 06/01/2018 07:00 (CDT) SHIFT END DATE/TIME: 06/01/2018 19:00 (CDT) NAME YANICK COOPER DATE OF : 1950 DATE OF ADMISSION: 05/29/2018 17:19 (CDT) PHONE: AGE: 68 N# [id number] GENDER: Male ENCOUNTER PHYSICIAN: Dr. Mc Clarke M.D. ADMISSION DIAGNOSIS: - Debility 16 - Debility (16) SEPSIS, UTI, HYPERTENSION, DIABETES MELLITUS. EATING: EATING - STEP 1: Does the patient require the assistance of a person or device, or need extra time when eating? Yes. EATING - STEP 2: Does the patient require the assistance of a helper? Yes. EATING - STEP 3: Does the patient perform half or more of the eating tasks? Yes. EATING - STEP 4: Does the patient need only supervision, cuing, coaxing OR help to apply an orthosis OR help to cut fo od, open containers, pour liquids, or butter bread? Yes. EATING - SCORE: 5-SUP GROOMING: Comb/brush hair Wash, rinse, and dry face Wash, rinse, and dry hands GROOMING - STEP 1: Does the patient require the assistance of a person or device, or need extra time when grooming? Yes. GROOMING - STEP 2: Does the patient require the assistance of a helper? Yes. GROOMING - STEP 3: How much assistance does the patient require from the helper? Cuing, coaxing, instructions, or encour agement for completion of grooming GROOMING - SCORE: 5-SUP BATHING: Activity did not occur on this shift BATHING - SCORE: 0-UNK DRESSING - UPPER BODY: Button down shirt or blouse - NOT tucked in (four steps) ARTICLES SCORE Total number of steps: 4 DRESSING - UPPER BODY - STEP 1: Does the patient require help from a person or device, or need extra time when dressing above the [address]? Yes. DRESSING - UPPER BODY - STEP 2: Does the patient require the assistance of a helper? Yes. DRESSING - UPPER BODY - STEP 3: Does the helper touch the patient while dressing? No. DRESSING - UPPER BODY - SCORE: 5-SUP DRESSING - LOWER BODY: Tied or buckled shoe - Left foot (two steps) Tied or buckled shoe - Right foot (two steps) ARTICLES SCORE Total number of steps: 4 DRESSING - LOWER BODY - STEP 1: Does the patient require help from a person or device, or need extra time when dressing below the [address]? Yes. DRESSING - LOWER BODY - STEP 2: Does the patient require the assistance of a helper? Yes. DRESSING - LOWER BODY - STEP 3: Does the helper touch the patient while dressing? Yes. DRESSING - LOWER BODY - STEP 4: How many of the total steps does the patient complete on his/her own? 0 DRESSING - LOWER BODY - STEP 5: Does patient require total assistance for dressing below the waist such as the helper holding clothin g and performing basically all the activities? Yes. DRESSING - LOWER BODY - SCORE: 1-DEP TOILETING: TOILETING - STEP 1: Does the patient require the assistance of a person or device, or need extra time with toileting? Yes . TOILETING - STEP 2: Does the patient require the assistance of a helper? Yes. TOILETING - STEP 3: How much assistance does the patient require from the helper? Hands-on assistance from the helper TOILETING - STEP 4: Of the 3 tasks: 1) Adjusting clothing prior to use, 2) Cleansing of perineal area, 3) Adjusting clot margaret after use; How many tasks does the patient perform WITHOUT assistance of the helper? Two tasks TOILETING - SCORE: 3-MOD BLADDER MANAGEMENT: Bernie removes incontinent device (Depends, pull ups, etc.); cleans the patient after accident / inco ntinent episode; and, applies new incontinent device. BLADDER MANAGEMENT - SCORE: 1-DEP BLADDER MANAGEMENT - FREQUENCY OF ACCIDENTS: BLADDER MANAGEMENT(FA) - STEP 1: How many accidents has the patient had during the current shift? 1 BOWEL MANAGEMENT: Activity did not occur on this shift BOWEL MANAGEMENT - SCORE: 7-IND BOWEL MANAGEMENT - FREQUENCY OF ACCIDENTS: BOWEL MANAGEMENT(FA) - STEP 1: How many accidents has the patient had during the current shift? 0 TRANSFERS: BED, CHAIR, WHEELCHAIR: TRANSFERS: BED, CHAIR, WHEELCHAIR - STEP 1: Does the patient require assistance of a person or device, or need extra time with bed, chair, or whe elchair transfers? Yes. TRANSFERS: BED, CHAIR, WHEELCHAIR - STEP 2: Does the patient require the assistance of a helper? Yes. TRANSFERS: BED, CHAIR, WHEELCHAIR - STEP 3: How much assistance does the patient require from the helper? Steadying/guiding assistance TRANSFERS: BED, CHAIR, WHEELCHAIR - SCORE: 4-MIN TRANSFERS: TOILET: TRANSFERS: TOILET - STEP 1: Does the patient require the assistance of a person or device, or need extra time with toilet transfe rs? Yes. TRANSFERS: TOILET - STEP 2: Does the patient require the assistance of a helper? Yes. TRANSFERS: TOILET - STEP 3: How much assistance does the patient require from the helper? Patient performs half or more of the tr ansferring tasks TRANSFERS: TOILET - STEP 4: Does the patient need only incidental help such as contact guard or steadying during toilet transfer? Yes. TRANSFERS: TOILET - SCORE: 4-MIN TRANSFERS: SHOWER: Activity did not occur on this shift TRANSFERS: SHOWER - SCORE: 0-UNK TRANSFERS: TUB: Activity did not occur on this shift TRANSFERS: TUB - SCORE: 0-UNK LOCOMOTION: WALK: Activity did not occur on this shift LOCOMOTION: WALK - SCORE: 0-UNK LOCOMOTION: WHEELCHAIR: Activity did not occur on this shift LOCOMOTION: WHEELCHAIR - SCORE: 0-UNK COMPREHENSION: COMPREHENSION: TYPE: Both COMPREHENSION - STEP 1: Does the patient require help from a person or device, or need extra time to understand complex and a bstract ideas (such as current events, finances, discharge planning, medical issues, relationships, e tc)? No. COMPREHENSION - STEP 2: Does the patient need extra time, require an assistive device (such as glasses for visual comprehensi on or a hearing aid for auditory comprehension) or does s/he have mild difficulty understanding compl ex and abstract information? Yes. COMPREHENSION - SCORE: 6-ILA EXPRESSION EXPRESSION: TYPE: Both EXPRESSION - STEP 1: Does the patient require help from a person or device, or need extra time expressing complex and abst ract ideas (such as current events, finances, discharge planning, medical issues, relationships, etc) ? Yes. EXPRESSION - STEP 2: Does the patient require help to express basic necessities or ideas (such as hunger, thirst, sleep, s afety, daily schedule, room location, or discomfort) half or more of the time? No. EXPRESSION - STEP 3: How often does the patient need help to express directions and conversation about basic needs? Less t story 10% of the time EXPRESSION - SCORE: 5-SUP SOCIAL INTERACTION: SOCIAL INTERACTION - STEP 1: Does the patient require a helper to interact with others in social and therapeutic situations? Yes. SOCIAL INTERACTION - STEP 2: Does the patient interact appropriately half or more of the time? Yes. SOCIAL INTERACTION - STEP 3: How often does the patient need help to interact appropriately? Less than 10% of the time SOCIAL INTERACTION - SCORE: 5-SUP PROBLEM SOLVING: PROBLEM SOLVING - STEP 1: Does the patient need help from a person or device, or need extra time to solve complex problems such as managing a checking account or confronting interpersonal problems? Yes. PROBLEM SOLVING - STEP 2: Does the patient solve basic routine problems half or more of the time? Yes. PROBLEM SOLVING - STEP 3: How often does the patient need help to solve basic routine problems? Less than 10% of the time PROBLEM SOLVING - SCORE: 5-SUP MEMORY: MEMORY - STEP 1: Does the patient need help from a person or device, or need extra time to remember frequently encount ered people, daily routines, and executing requests? Yes. MEMORY - STEP 2: How often does the patient need help to remember frequently encountered people, daily routines, and e xecuting requests? Less than 10% of the time MEMORY - SCORE: 5-SUP SIGNATURE PANEL: The following modified sections: Eating - Score, Grooming - Score, Bathing - Score, Dressing - Upper Body - Score, Dressing - Lower Body - Score, Toileting - Score, Bladder Management - Score, Bowel Man agement - Score, Transfers: Bed, Chair, Wheelchair - Score, Transfers: Toilet - Score, Transfers: Lisa wer - Score, Transfers: Tub - Score, Locomotion: Walk - Score, Locomotion: Wheelchair - Score, Compre hension - Score, Expression - Score, Social Interaction - Score, Problem Solving - Score, Memory - Sc ore were [electronically] signed by Shamika Luis C.N.A. on FriJun 02 2018 14:04:39 GMT-0500 (Centra l Daylight Time)
--- NOTE | 2018-06-02 14:17 | FAST ---
ENCOUNTER DATE AND TIME: 06/02/2018 08:00 (CDT) NAME YANICK COOPER DATE OF : 1950 DATE OF ADMISSION: 05/29/2018 17:19 (CDT) PHONE: AGE: 68 SSN# [id number] GENDER: Male ENCOUNTER PHYSICIAN: Dr. Mc Clarke M.D. ADMISSION DIAGNOSIS: - Debility 16 - Debility (16) SEPSIS, UTI, HYPERTENSION, DIABETES MELLITUS. EATING: Activity did not occur on this shift EATING - SCORE: 0-UNK GROOMING: Activity did not occur on this shift GROOMING - SCORE: 0-UNK BATHING: Activity did not occur on this shift BATHING - SCORE: 0-UNK DRESSING - UPPER BODY: Activity did not occur on this shift Patient is not dressing in public clothing ARTICLES SCORE Total number of steps: 0 DRESSING - UPPER BODY - SCORE: 0-UNK DRESSING - LOWER BODY: Activity did not occur on this shift Patient is not dressing in public clothing ARTICLES SCORE Total number of steps: 0 DRESSING - LOWER BODY - SCORE: 0-UNK TOILETING: Activity did not occur on this shift TOILETING - SCORE: 0-UNK BLADDER MANAGEMENT: Activity did not occur on this shift BLADDER MANAGEMENT - SCORE: 7-IND BOWEL MANAGEMENT: Activity did not occur on this shift BOWEL MANAGEMENT - SCORE: 7-IND TRANSFERS: BED, CHAIR, WHEELCHAIR: TRANSFERS: BED, CHAIR, WHEELCHAIR - STEP 1: Does the patient require assistance of a person or device, or need extra time with bed, chair, or whe elchair transfers? Yes. TRANSFERS: BED, CHAIR, WHEELCHAIR - STEP 2: Does the patient require the assistance of a helper? Yes. TRANSFERS: BED, CHAIR, WHEELCHAIR - STEP 3: How much assistance does the patient require from the helper? Lifting of the patient TRANSFERS: BED, CHAIR, WHEELCHAIR - STEP 4: Does the helper lift the patient ONLY up? ONLY down? Up AND Down? Up AND Down. TRANSFERS: BED, CHAIR, WHEELCHAIR - SCORE: 2-MAX TRANSFERS: TOILET: Activity did not occur on this shift TRANSFERS: TOILET - SCORE: 0-UNK TRANSFERS: SHOWER: Activity did not occur on this shift TRANSFERS: SHOWER - SCORE: 0-UNK TRANSFERS: TUB: Activity did not occur on this shift TRANSFERS: TUB - SCORE: 0-UNK LOCOMOTION: WALK: LOCOMOTION: WALK - STEP 1: Does the patient need help from a person or device, or need extra time to walk 150 feet? Yes. LOCOMOTION: WALK - STEP 2: How much assistance does the patient require to walk a minimum of 150 feet? Patient walks less than 1 50 feet - but more than 50 feet - with the assistance of only one helper LOCOMOTION: WALK - SCORE: 2-MAX LOCOMOTION: WHEELCHAIR: Activity did not occur on this shift LOCOMOTION: WHEELCHAIR - SCORE: 0-UNK LOCOMOTION: STAIRS: Activity did not occur on this shift LOCOMOTION: STAIRS - SCORE: 0-UNK COMPREHENSION: COMPREHENSION - SCORE: 0-UNK EXPRESSION EXPRESSION - SCORE: 0-UNK SOCIAL INTERACTION: SOCIAL INTERACTION - SCORE: 0-UNK PROBLEM SOLVING: PROBLEM SOLVING - SCORE: 0-UNK MEMORY: MEMORY - SCORE: 0-UNK SIGNATURE PANEL: The following modified sections: Transfers: Bed, Chair, Wheelchair - Score, Transfers: Toilet - Score , Locomotion: Walk - Score, Locomotion: Wheelchair - Score, Locomotion: Stairs - Score were [sheryl [email or web address]] signed by Zoran Colón PT on FriJun 02 2018 14:15:47 T-0500 (Central Daylight Time)
--- NOTE | 2018-06-02 19:00 | R.PN ---
ENCOUNTER DATE AND TIME: 06/02/2018 18:53 (CDT) NAME YANICK COOPER DATE OF : 1950 DATE OF ADMISSION: 05/29/2018 17:19 (CDT) SEPSIS, UTI, HYPERTENSION, DIABETES MELLITUSCHIEF COMPLAINT: Debility, urinary tract infection SUBJECTIVE: Pt denied any Shortness of Breath. Pt denied any depression. Ambulated 110' with minimum assistance using a rolling walker. WBC 11.0, Hgb 13.1, Plt 213, glucose r ivelisse 154 to 247. Brain MRI shows no acute changes but moderate cerebral atrophy with small vessel ischemic disease. C- Spine CT shows moderate mid cervical spondylosis and no fractures. Bilateral hip x-rays show osteoart hritis with no fractures. VITAL SIGNS Temperature: 98.2 F SBP/DBP: 134/69 Pulse: 78 Resp: 16 MEDICATION ALLERGIES: ZOLPIDEM ENVIRONMENTAL ALLERGIES: None Known - Substance Allergies None Known - Other Allergies None Known NURSING: - Shower allowing shower - Lab Results blood Sugar Check ACHS ACTIVITIES OOB only with supervision THERAPIES: - Occupational Therapy Evaluate and Treat. - Physical Therapy Evaluate and Treat. PHYSICAL EXAM - Gen Alert and awake Lying in bed No apparent distress Oriented to: person, time, and place - Skin No breakdown No abnormalities - Eyes No abnormalities - ENMT No abnormalities - Neck No abnormalities - CVS RRR - Chest No abnormalities - Resp Clear to auscultation - Abd +bowel sounds - GI nondistended Deferred - No abnormalities - Ext No significant edema - MSK 4+/5 weakness in both lower extremities. Neck muscle spasms. - Neuro No focal neurological deficits. - Psych No abnormalities ASSESSMENT: Pt. is a 68 yo Right-handed white male.On 05/27/2018 he was admitted to [facility] with diagnosis SEPSIS, UTI, HYPERTENSION, DIABETES MELLITUS.His impairment category is Debility 1 6 - Debility (16).Pre-morbidly, Pt. was independent/mod-I in Self-Care, Sphincter Control, Transfers Control, Locomotion, Communication, and Social Cognition; and he had good Sphincter Control.Currentl y, he has deficits of Transfers Control, Locomotion, Endurance, Balance, Safety Awareness, and Self-C are.Pt. is now referred to [facility] for acute [facility] to maximize patient's functional independence in activities of daily living, strength, ROM, and mobility.- Rehab Goal Patient has realistic goal of being discharged at assistance level 6-[place] to reside at Home with Fam rl/Relatives. MDM/PLAN: - Physical Therapy Gait dysfunction - to improve, our physical therapists will perform initial evaluation of pt's statu s upon admission and devise an individualized program for Gait Training, and Wheel Chair mobility Inability to transfer - to improve, our physical therapists will perform initial evaluation of pt's status upon admission and devise an individualized program for Bed mobility Need for home safety evaluation - to improve, our physical therapists will perform initial evaluatio n of pt's status upon admission and devise an individualized program for Home Evaluation Need in caregiver upon discharge - to improve, our physical therapists will perform initial evaluati on of pt's status upon admission and devise an individualized program for Caregiver Training New precaution - to improve, our physical therapists will perform initial evaluation of pt's status upon admission and devise an individualized program for Patient precaution education Edema - to improve, our physical therapists will perform initial evaluation of pt's status upon admi ssion and devise an individualized program for Elevation Training, and Lymphedema Therapy Poor balance - to improve, our physical therapists will perform initial evaluation of pt's status up on admission and devise an individualized program for Balance Training Poor endurance - to improve, our physical therapists will perform initial evaluation of pt's status upon admission and devise an individualized program for Endurance Training Weakness - to improve, our physical therapists will perform initial evaluation of pt's status upon a dmission and devise an individualized program for Aquatic Therapy, Neuromuscular Reeducation, and Str engthening Achieving independence - to improve, our physical therapists will perform initial evaluation of pt's status upon admission and devise an individualized program for Community Reintegration Activities - Occupational Therapy ADL deficits - to improve, our occupation therapists will perform initial evaluation of pt's status upon admission and devise an individualized program for Bathing, Bed mobility, Community Reintegratio n, Cooking, Dressing, Eating, Fine Motor Skills, Grooming, Homemaking, Kitchen Mobility, Laundry, Pat ient Education, Safety Awareness, Splinting - Positioning, Transfers(Toilet, Tub, Shower), and Wheel Chair Management Need for nursing care partner - to improve, our occupation therapists will perform initial evaluation of pt's status upon admission and devise an individualized program for Caregiver Training Weakness - to improve, our occupation therapists will perform initial evaluation of pt's status upon admission and devise an individualized program for Aquatic Therapy, Balance, Endurance, UE ROM, and UE strengthening - Diet Type Continue Regular - Diet - Liquid Texture Continue Regular - Tube Feed Continue N/A - Lab Results blood Sugar Check ACHS - Diet - Solid Texture Continue Regular - Shower allowing shower FUNCTIONAL STATUS: UPDATED AT WEEKLY TEAM CONFERENCE - Bladder Same accident frequency: 7-Ind - No accidents in the past 7 days - Bowel Same accident frequency: 7-Ind - No accidents in the past 7 days - Walking Same score based on distance walked: 3(>=150ft) - Wheelchair Same score based on distance traveled: 0(N/A) FUNCTIONAL STATUS: - Self-Care A. Eating Ind B. Grooming Ind C. Bathing sup D. Dressing - Upper sup E. Dressing - Lower sup F. Toileting CGA - Sphincter Control G: Bladder control Ind H: Bowel control Ind - Transfers Control I. Bed/Chair/Wheelchair CGA J. Toilet CGA K. Tub/Shower ADNO - Locomotion L. Walk/Wheelchair (C) Harley/CGA L. Walk/Wheelchair (W) Harley/CGA M. Stairs ADNO - Communication N. Comprehension (B) Ind O. Expression (B) Ind - Social Cognition P. Social Interaction Ind Q. Problem Solving Ind R. Memory Ind - Endurance Fair - Balance Fair - Safety Awareness Fair CURRENT FUNC. DEFICITS: Transfers Control, Locomotion, Endurance, Balance, Safety Awareness, and Self-Care SIGNATURE PANEL: (CDT)
[2018-06-02] MEDS: ROSUVASTATIN 10 MG TAB PO SCH (20:17)
[2018-06-02] MEDS: DOCUSATE NA/SENNA CONC 1 TAB PO SCH (20:18)
[2018-06-02] MEDS: LIDOCAINE 5% PATCH TOP SCH (20:19)
[2018-06-02] MEDS ORDERED: GABAPENTIN 100 MG CAP PO SCH (21:00)
--- NOTE | 2018-06-03 01:28 | FAST ---
SHIFT START DATE/TIME: 06/02/2018 19:00 (CDT) SHIFT END DATE/TIME: 06/03/2018 07:00 (CDT) NAME YANICK COOPER DATE OF : 1950 DATE OF ADMISSION: 05/29/2018 17:19 (CDT) PHONE: AGE: 68 SSN# [id number] GENDER: Male ENCOUNTER PHYSICIAN: Dr. Mc Clarke M.D. ADMISSION DIAGNOSIS: - Debility 16 - Debility (16) SEPSIS, UTI, HYPERTENSION, DIABETES MELLITUS. EATING: Activity did not occur on this shift EATING - SCORE: 0-UNK GROOMING: Activity did not occur on this shift GROOMING - SCORE: 0-UNK BATHING: Activity did not occur on this shift BATHING - SCORE: 0-UNK DRESSING - UPPER BODY: Patient is not dressing in public clothing ARTICLES SCORE Total number of steps: 0 DRESSING - UPPER BODY - SCORE: 0-UNK DRESSING - LOWER BODY: Patient is not dressing in public clothing ARTICLES SCORE Total number of steps: 0 DRESSING - LOWER BODY - SCORE: 0-UNK TOILETING: Activity did not occur on this shift TOILETING - SCORE: 0-UNK BLADDER MANAGEMENT: [place] removes incontinent device (Depends, pull ups, etc.); cleans the patient after accident / inco ntinent episode; and, applies new incontinent device. BLADDER MANAGEMENT - SCORE: 1-DEP BLADDER MANAGEMENT - FREQUENCY OF ACCIDENTS: BLADDER MANAGEMENT(FA) - STEP 1: How many accidents has the patient had during the current shift? 2 BOWEL MANAGEMENT: BOWEL MANAGEMENT - STEP 1: Does the patient control bowels completely and intentionally without equipment devices or medications AND is always continent? No. BOWEL MANAGEMENT - STEP 2: Does the patient require the assistance of a helper? No, patient requires medication for control such as stool softeners, suppositories, laxatives, enemas, or OTC medications BOWEL MANAGEMENT - SCORE: 6-ILA TRANSFERS: BED, CHAIR, WHEELCHAIR: Activity did not occur on this shift TRANSFERS: BED, CHAIR, WHEELCHAIR - SCORE: 0-UNK TRANSFERS: TOILET: Activity did not occur on this shift TRANSFERS: TOILET - SCORE: 0-UNK TRANSFERS: SHOWER: Activity did not occur on this shift TRANSFERS: SHOWER - SCORE: 0-UNK TRANSFERS: TUB: Activity did not occur on this shift TRANSFERS: TUB - SCORE: 0-UNK LOCOMOTION: WALK: Activity did not occur on this shift LOCOMOTION: WALK - SCORE: 0-UNK LOCOMOTION: WHEELCHAIR: Activity did not occur on this shift LOCOMOTION: WHEELCHAIR - SCORE: 0-UNK COMPREHENSION: COMPREHENSION: TYPE: Both COMPREHENSION - STEP 1: Does the patient require help from a person or device, or need extra time to understand complex and a bstract ideas (such as current events, finances, discharge planning, medical issues, relationships, e tc)? Yes. COMPREHENSION - STEP 2: Does the patient require help to understand questions or statements about basic needs or ideas (such as hunger, thirst, sleep, safety, daily schedule, room location, or discomfort) half or more of the t mary? No. COMPREHENSION - STEP 3: How often does the patient need help to understand directions and conversation about basic needs? 10% - 24% of the time COMPREHENSION - SCORE: 4-MIN EXPRESSION EXPRESSION: TYPE: Both EXPRESSION - STEP 1: Does the patient require help from a person or device, or need extra time expressing complex and abst ract ideas (such as current events, finances, discharge planning, medical issues, relationships, etc) ? No. EXPRESSION - STEP 2: Does the patient need extra time, require an assistive device (such as augmentive communication syste m or a communication board), OR does s/he have mild difficulty expressing complex and abstract ideas (including mild dysarthria or mild word-find problems)? Yes. EXPRESSION - SCORE: 6-ILA SOCIAL INTERACTION: SOCIAL INTERACTION - STEP 1: Does the patient require a helper to interact with others in social and therapeutic situations? No. SOCIAL INTERACTION - STEP 2: Does the patient need extra time in social situations, OR does s/he interact with staff, other patien ts, and family members ONLY in structured environments, OR does s/he require medication for social in teraction? Yes, patient needs extra time SOCIAL INTERACTION - SCORE: 6-ILA PROBLEM SOLVING: PROBLEM SOLVING - STEP 1: Does the patient need help from a person or device, or need extra time to solve complex problems such as managing a checking account or confronting interpersonal problems? Yes. PROBLEM SOLVING - STEP 2: Does the patient solve basic routine problems half or more of the time? Yes. PROBLEM SOLVING - STEP 3: How often does the patient need help to solve basic routine problems? 25%-49% of the time PROBLEM SOLVING - SCORE: 3-MOD MEMORY: MEMORY - STEP 1: Does the patient need help from a person or device, or need extra time to remember frequently encount ered people, daily routines, and executing requests? No. MEMORY - STEP 2: Does the patient have slight difficulty recognizing frequently encountered people, daily routines, or executing requests without the need for repetition or using self-initiated or environmental cues to remember? Yes. MEMORY - SCORE: 6-ILA SIGNATURE PANEL: The following modified sections: Eating - Score, Grooming - Score, Dressing - Upper Body - Score, Harsha ssing - Lower Body - Score, Toileting - Score, Bladder Management - Score, Bowel Management - Score, Transfers: Bed, Chair, Wheelchair - Score, Transfers: Toilet - Score, Transfers: Shower - Score, [place] sfers: Tub - Score, Locomotion: Walk - Score, Locomotion: Wheelchair - Score, Comprehension - Score, Expression - Score, Social Interaction - Score, Problem Solving - Score, Memory - Score were [electro nically] signed by Leticia Ya CNA on FriJun 03 2018 01:28:03 GMT-0500 (Central Daylight Time)
[2018-06-03] MEDS: METOPROLOL XL 25 MG TAB PO SCH ×2 (05:16→16:52)
[2018-06-03] MEDS: INSULIN -REGULAR HUMAN 50 UNIT/0.5 ML ML SQ SCH ×4 (07:30→21:09)
[2018-06-03] MEDS: IRBESARTAN 150 MG TAB PO SCH (09:09)
[2018-06-03] MEDS: ASPIRIN 81 MG CHEWABLE TABLET PO SCH (09:09)
[2018-06-03] MEDS: EZETIMIBE 10 MG TAB PO SCH (09:09)
[2018-06-03] MEDS: FOLIC ACID 1 MG TABLET PO SCH (09:10)
[2018-06-03] MEDS: AMOX/K CLAV 500 MG TAB PO SCH ×2 (09:10→20:50)
[2018-06-03] MEDS: MAGNESIUM OXIDE 400 MG TAB PO SCH ×2 (09:10→20:48)
[2018-06-03] MEDS: CLOPIDOGREL 75 MG TABLET PO SCH (09:10)
[2018-06-03] MEDS: CYANOCOBALAMIN 1,000 MCG TAB PO SCH (09:10)
[2018-06-03] MEDS: APIXABAN 2.5 MG TABLET PO SCH ×2 (09:11→20:48)
[2018-06-03] MEDS: TOLTERODINE LA 4 MG CAP PO SCH (09:11)
[2018-06-03] MEDS: TRESIBA 50 UNIT SQ SCH (09:12)
--- NOTE | 2018-06-03 10:04 | FAST ---
SHIFT START DATE/TIME: 06/03/2018 07:00 (CDT) SHIFT END DATE/TIME: 06/03/2018 19:00 (CDT) NAME YANICK COOPER DATE OF : 1950 DATE OF ADMISSION: 05/29/2018 17:19 (CDT) PHONE: AGE: 68 N# [id number] GENDER: Male ENCOUNTER PHYSICIAN: Dr. Mc Clarke M.D. ADMISSION DIAGNOSIS: - Debility 16 - Debility (16) SEPSIS, UTI, HYPERTENSION, DIABETES MELLITUS. EATING: EATING - STEP 1: Does the patient require the assistance of a person or device, or need extra time when eating? Yes. EATING - STEP 2: Does the patient require the assistance of a helper? Yes. EATING - STEP 3: Does the patient perform half or more of the eating tasks? Yes. EATING - STEP 4: Does the patient need only supervision, cuing, coaxing OR help to apply an orthosis OR help to cut fo od, open containers, pour liquids, or butter bread? Yes. EATING - SCORE: 5-SUP GROOMING: Comb/brush hair Oral care Wash, rinse, and dry face Wash, rinse, and dry hands GROOMING - STEP 1: Does the patient require the assistance of a person or device, or need extra time when grooming? Yes. GROOMING - STEP 2: Does the patient require the assistance of a helper? Yes. GROOMING - STEP 3: How much assistance does the patient require from the helper? Cuing, coaxing, instructions, or encour agement for completion of grooming GROOMING - SCORE: 5-SUP BATHING: Activity did not occur on this shift BATHING - SCORE: 0-UNK DRESSING - UPPER BODY: Activity did not occur on this shift ARTICLES SCORE Total number of steps: 0 DRESSING - UPPER BODY - SCORE: 0-UNK DRESSING - LOWER BODY: Activity did not occur on this shift ARTICLES SCORE Total number of steps: 0 DRESSING - LOWER BODY - SCORE: 0-UNK TOILETING: TOILETING - STEP 1: Does the patient require the assistance of a person or device, or need extra time with toileting? Yes . TOILETING - STEP 2: Does the patient require the assistance of a helper? Yes. TOILETING - STEP 3: How much assistance does the patient require from the helper? Hands-on assistance from the helper TOILETING - STEP 4: Of the 3 tasks: 1) Adjusting clothing prior to use, 2) Cleansing of perineal area, 3) Adjusting clot margaret after use; How many tasks does the patient perform WITHOUT assistance of the helper? One task TOILETING - SCORE: 2-MAX BLADDER MANAGEMENT: [place] removes incontinent device (Depends, pull ups, etc.); cleans the patient after accident / inco ntinent episode; and, applies new incontinent device. BLADDER MANAGEMENT - SCORE: 1-DEP BLADDER MANAGEMENT - FREQUENCY OF ACCIDENTS: BLADDER MANAGEMENT(FA) - STEP 1: How many accidents has the patient had during the current shift? 3 BOWEL MANAGEMENT: Activity did not occur on this shift BOWEL MANAGEMENT - SCORE: 7-IND TRANSFERS: BED, CHAIR, WHEELCHAIR: TRANSFERS: BED, CHAIR, WHEELCHAIR - STEP 1: Does the patient require assistance of a person or device, or need extra time with bed, chair, or whe elchair transfers? Yes. TRANSFERS: BED, CHAIR, WHEELCHAIR - STEP 2: Does the patient require the assistance of a helper? Yes. TRANSFERS: BED, CHAIR, WHEELCHAIR - STEP 3: How much assistance does the patient require from the helper? Lifting of the patient TRANSFERS: BED, CHAIR, WHEELCHAIR - STEP 4: Does the helper lift the patient ONLY up? ONLY down? Up AND Down? Up AND Down. TRANSFERS: BED, CHAIR, WHEELCHAIR - SCORE: 2-MAX TRANSFERS: TOILET: TRANSFERS: TOILET - STEP 1: Does the patient require the assistance of a person or device, or need extra time with toilet transfe rs? Yes. TRANSFERS: TOILET - STEP 2: Does the patient require the assistance of a helper? Yes. TRANSFERS: TOILET - STEP 3: How much assistance does the patient require from the helper? Patient performs less than half of the transferring tasks TRANSFERS: TOILET - STEP 4: Does the patient require total assistance for the toilet transfer such as the helper doing basically all the lifting? No. TRANSFERS: TOILET - SCORE: 2-MAX TRANSFERS: SHOWER: Activity did not occur on this shift TRANSFERS: SHOWER - SCORE: 0-UNK TRANSFERS: TUB: Activity did not occur on this shift TRANSFERS: TUB - SCORE: 0-UNK LOCOMOTION: WALK: Activity did not occur on this shift LOCOMOTION: WALK - SCORE: 0-UNK LOCOMOTION: WHEELCHAIR: Activity did not occur on this shift LOCOMOTION: WHEELCHAIR - SCORE: 0-UNK COMPREHENSION: COMPREHENSION: TYPE: Both COMPREHENSION - STEP 1: Does the patient require help from a person or device, or need extra time to understand complex and a bstract ideas (such as current events, finances, discharge planning, medical issues, relationships, e tc)? Yes. COMPREHENSION - STEP 2: Does the patient require help to understand questions or statements about basic needs or ideas (such as hunger, thirst, sleep, safety, daily schedule, room location, or discomfort) half or more of the t mary? No. COMPREHENSION - STEP 3: How often does the patient need help to understand directions and conversation about basic needs? 25% - 49% of the time COMPREHENSION - SCORE: 3-MOD EXPRESSION EXPRESSION: TYPE: Both EXPRESSION - STEP 1: Does the patient require help from a person or device, or need extra time expressing complex and abst ract ideas (such as current events, finances, discharge planning, medical issues, relationships, etc) ? Yes. EXPRESSION - STEP 2: Does the patient require help to express basic necessities or ideas (such as hunger, thirst, sleep, s afety, daily schedule, room location, or discomfort) half or more of the time? No. EXPRESSION - STEP 3: How often does the patient need help to express directions and conversation about basic needs? 25-49% of the time EXPRESSION - SCORE: 3-MOD SOCIAL INTERACTION: SOCIAL INTERACTION - STEP 1: Does the patient require a helper to interact with others in social and therapeutic situations? Yes. SOCIAL INTERACTION - STEP 2: Does the patient interact appropriately half or more of the time? Yes. SOCIAL INTERACTION - STEP 3: How often does the patient need help to interact appropriately? 25-49% of the time SOCIAL INTERACTION - SCORE: 3-MOD PROBLEM SOLVING: PROBLEM SOLVING - STEP 1: Does the patient need help from a person or device, or need extra time to solve complex problems such as managing a checking account or confronting interpersonal problems? Yes. PROBLEM SOLVING - STEP 2: Does the patient solve basic routine problems half or more of the time? Yes. PROBLEM SOLVING - STEP 3: How often does the patient need help to solve basic routine problems? 25%-49% of the time PROBLEM SOLVING - SCORE: 3-MOD MEMORY: MEMORY - STEP 1: Does the patient need help from a person or device, or need extra time to remember frequently encount ered people, daily routines, and executing requests? Yes. MEMORY - STEP 2: How often does the patient need help to remember frequently encountered people, daily routines, and e xecuting requests? 25% - 49% of the time MEMORY - SCORE: 3-MOD SIGNATURE PANEL: The following modified sections: Eating - Score, Grooming - Score, Bathing - Score, Dressing - Upper Body - Score, Dressing - Lower Body - Score, Toileting - Score, Bladder Management - Score, Bowel Man agement - Score, Transfers: Bed, Chair, Wheelchair - Score, Transfers: Toilet - Score, Transfers: Lisa wer - Score, Transfers: Tub - Score, Locomotion: Walk - Score, Locomotion: Wheelchair - Score, Compre hension - Score, Expression - Score, Social Interaction - Score, Problem Solving - Score, Memory - Sc ore were [electronically] signed by Raza Harry on FriJun 03 2018 10:04:21 T-0500 (Central Daylight Time)
--- NOTE | 2018-06-03 10:13 | RAD REPORT ---
EXAM DESCRIPTION: RAD - Barium Swallow Modified - 06/03/2018 9:13 am CLINICAL HISTORY: Coughing, choking, aspiration FINDINGS: Minimal delay in swallow. No penetration or aspiration was observed with any consistency tested. No pharyngeal residues noted. Pureed bolus passed into the lower esophagus without difficulty. Fluoroscopy time 2.05 minutes. Fifteen fluoroscopic spot series obtained
[2018-06-03] MEDS: LIDOCAINE 5% PATCH TOP SCH (12:22)
[2018-06-03 15:45] LABS: Urine Appearance CLEAR; Urine Blood NEGATIVE (NEG); Urine Color DK YELLOW; Urine Glucose 3+ (NEG); Urine Protein NEGATIVE (NEG); Urine Specific Gravity 1.025 (1.005-1.030); Urine pH 5.5 (5.0-7.0)
[2018-06-03 15:50] LABS: Urine Bilirubin NEGATIVE (NEG); Urine Microscopic Reflex NO UMIC
--- NOTE | 2018-06-03 16:01 | FAST ---
ENCOUNTER DATE AND TIME: 06/03/2018 08:00 (CDT) NAME YANICK COOPER DATE OF : 1950 DATE OF ADMISSION: 05/29/2018 17:19 (CDT) PHONE: AGE: 68 SSN# [id number] GENDER: Male ENCOUNTER PHYSICIAN: Dr. Mc Clarke M.D. ADMISSION DIAGNOSIS: - Debility 16 - Debility (16) SEPSIS, UTI, HYPERTENSION, DIABETES MELLITUS. EATING: Activity did not occur on this shift EATING - SCORE: 0-UNK GROOMING: Activity did not occur on this shift GROOMING - SCORE: 0-UNK BATHING: Activity did not occur on this shift BATHING - SCORE: 0-UNK DRESSING - UPPER BODY: Activity did not occur on this shift Patient is not dressing in public clothing ARTICLES SCORE Total number of steps: 0 DRESSING - UPPER BODY - SCORE: 0-UNK DRESSING - LOWER BODY: Activity did not occur on this shift Patient is not dressing in public clothing ARTICLES SCORE Total number of steps: 0 DRESSING - LOWER BODY - SCORE: 0-UNK TOILETING: Activity did not occur on this shift TOILETING - SCORE: 0-UNK BLADDER MANAGEMENT: Activity did not occur on this shift BLADDER MANAGEMENT - SCORE: 7-IND BOWEL MANAGEMENT: Activity did not occur on this shift BOWEL MANAGEMENT - SCORE: 7-IND TRANSFERS: BED, CHAIR, WHEELCHAIR: TRANSFERS: BED, CHAIR, WHEELCHAIR - STEP 1: Does the patient require assistance of a person or device, or need extra time with bed, chair, or whe elchair transfers? Yes. TRANSFERS: BED, CHAIR, WHEELCHAIR - STEP 2: Does the patient require the assistance of a helper? Yes. TRANSFERS: BED, CHAIR, WHEELCHAIR - STEP 3: How much assistance does the patient require from the helper? Lifting of the patient TRANSFERS: BED, CHAIR, WHEELCHAIR - STEP 4: Does the helper lift the patient ONLY up? ONLY down? Up AND Down? ONLY up. TRANSFERS: BED, CHAIR, WHEELCHAIR - SCORE: 3-MOD TRANSFERS: TOILET: Activity did not occur on this shift TRANSFERS: TOILET - SCORE: 0-UNK TRANSFERS: SHOWER: Activity did not occur on this shift TRANSFERS: SHOWER - SCORE: 0-UNK TRANSFERS: TUB: Activity did not occur on this shift TRANSFERS: TUB - SCORE: 0-UNK LOCOMOTION: WALK: LOCOMOTION: WALK - STEP 1: Does the patient need help from a person or device, or need extra time to walk 150 feet? Yes. LOCOMOTION: WALK - STEP 2: How much assistance does the patient require to walk a minimum of 150 feet? Patient walks less than 1 50 feet - but more than 50 feet - with the assistance of only one helper LOCOMOTION: WALK - SCORE: 2-MAX LOCOMOTION: WHEELCHAIR: Activity did not occur on this shift LOCOMOTION: WHEELCHAIR - SCORE: 0-UNK LOCOMOTION: STAIRS: Activity did not occur on this shift LOCOMOTION: STAIRS - SCORE: 0-UNK COMPREHENSION: COMPREHENSION - SCORE: 0-UNK EXPRESSION EXPRESSION - SCORE: 0-UNK SOCIAL INTERACTION: SOCIAL INTERACTION - SCORE: 0-UNK PROBLEM SOLVING: PROBLEM SOLVING - SCORE: 0-UNK MEMORY: MEMORY - SCORE: 0-UNK SIGNATURE PANEL: The following modified sections: Transfers: Bed, Chair, Wheelchair - Score, Transfers: Toilet - Score , Locomotion: Walk - Score, Locomotion: Wheelchair - Score, Locomotion: Stairs - Score were [sheryl orozco] signed by Zoran Colón, PT on FriJun 03 2018 15:59:31 T-0500 (Central Daylight Time)
[2018-06-03] MEDS: ROSUVASTATIN 10 MG TAB PO SCH (20:48)
[2018-06-03] MEDS: DOCUSATE NA/SENNA CONC 1 TAB PO SCH (20:50)
--- NOTE | 2018-06-04 01:21 | FAST ---
SHIFT START DATE/TIME: 06/03/2018 19:00 (CDT) SHIFT END DATE/TIME: 06/04/2018 07:00 (CDT) NAME YANICK COOPER DATE OF : 1950 DATE OF ADMISSION: 05/29/2018 17:19 (CDT) PHONE: AGE: 68 SSN# [id number] GENDER: Male ENCOUNTER PHYSICIAN: Dr. Mc Clarke M.D. ADMISSION DIAGNOSIS: - Debility 16 - Debility (16) SEPSIS, UTI, HYPERTENSION, DIABETES MELLITUS. EATING: Activity did not occur on this shift EATING - SCORE: 0-UNK GROOMING: Activity did not occur on this shift GROOMING - SCORE: 0-UNK BATHING: Activity did not occur on this shift BATHING - SCORE: 0-UNK DRESSING - UPPER BODY: Activity did not occur on this shift ARTICLES SCORE Total number of steps: 0 DRESSING - UPPER BODY - SCORE: 0-UNK DRESSING - LOWER BODY: Activity did not occur on this shift ARTICLES SCORE Total number of steps: 0 DRESSING - LOWER BODY - SCORE: 0-UNK TOILETING: Activity did not occur on this shift TOILETING - SCORE: 0-UNK BLADDER MANAGEMENT: [place] removes incontinent device (Depends, pull ups, etc.); cleans the patient after accident / inco ntinent episode; and, applies new incontinent device. BLADDER MANAGEMENT - SCORE: 1-DEP BLADDER MANAGEMENT - FREQUENCY OF ACCIDENTS: BLADDER MANAGEMENT(FA) - STEP 1: How many accidents has the patient had during the current shift? 1 BOWEL MANAGEMENT: Activity did not occur on this shift BOWEL MANAGEMENT - SCORE: 7-IND TRANSFERS: BED, CHAIR, WHEELCHAIR: Activity did not occur on this shift TRANSFERS: BED, CHAIR, WHEELCHAIR - SCORE: 0-UNK TRANSFERS: TOILET: Activity did not occur on this shift TRANSFERS: TOILET - SCORE: 0-UNK TRANSFERS: SHOWER: Activity did not occur on this shift TRANSFERS: SHOWER - SCORE: 0-UNK TRANSFERS: TUB: Activity did not occur on this shift TRANSFERS: TUB - SCORE: 0-UNK LOCOMOTION: WALK: Activity did not occur on this shift LOCOMOTION: WALK - SCORE: 0-UNK LOCOMOTION: WHEELCHAIR: Activity did not occur on this shift LOCOMOTION: WHEELCHAIR - SCORE: 0-UNK COMPREHENSION: COMPREHENSION: TYPE: Both COMPREHENSION - STEP 1: Does the patient require help from a person or device, or need extra time to understand complex and a bstract ideas (such as current events, finances, discharge planning, medical issues, relationships, e tc)? Yes. COMPREHENSION - STEP 2: Does the patient require help to understand questions or statements about basic needs or ideas (such as hunger, thirst, sleep, safety, daily schedule, room location, or discomfort) half or more of the t mary? No. COMPREHENSION - STEP 3: How often does the patient need help to understand directions and conversation about basic needs? Les s than 10% of the time COMPREHENSION - SCORE: 5-SUP EXPRESSION EXPRESSION: TYPE: Both EXPRESSION - STEP 1: Does the patient require help from a person or device, or need extra time expressing complex and abst ract ideas (such as current events, finances, discharge planning, medical issues, relationships, etc) ? Yes. EXPRESSION - STEP 2: Does the patient require help to express basic necessities or ideas (such as hunger, thirst, sleep, s afety, daily schedule, room location, or discomfort) half or more of the time? No. EXPRESSION - STEP 3: How often does the patient need help to express directions and conversation about basic needs? Less t story 10% of the time EXPRESSION - SCORE: 5-SUP SOCIAL INTERACTION: SOCIAL INTERACTION - STEP 1: Does the patient require a helper to interact with others in social and therapeutic situations? No. SOCIAL INTERACTION - STEP 2: Does the patient need extra time in social situations, OR does s/he interact with staff, other patien ts, and family members ONLY in structured environments, OR does s/he require medication for social in teraction? Yes, patient needs extra time SOCIAL INTERACTION - SCORE: 6-ILA PROBLEM SOLVING: Patient requires bed/chair alarms due to attempts to get up unassisted when helper is needed. PROBLEM SOLVING - STEP 1: How often do the bed/chair alarms go off? Occasionally - the alarms go off about 25% or less PROBLEM SOLVING - SCORE: 4-MIN MEMORY: MEMORY - STEP 1: How often do the bed/chair alarms go off? Occasionally - the alarms go off about 25% of the time or l ess MEMORY - SCORE: 4-MIN SIGNATURE PANEL: The following modified sections: Eating - Score, Grooming - Score, Bathing - Score, Dressing - Upper Body - Score, Dressing - Lower Body - Score, Toileting - Score, Bladder Management - Score, Bowel Man agement - Score, Transfers: Bed, Chair, Wheelchair - Score, Transfers: Toilet - Score, Transfers: Lisa wer - Score, Transfers: Tub - Score, Locomotion: Walk - Score, Locomotion: Wheelchair - Score, Compre hension - Score, Expression - Score, Social Interaction - Score, Problem Solving - Score, Memory - Sc ore were [electronically] signed by Elvie Pelaez RN on FriJun 04 2018 01:20:49 GMT-0500 (Critical access hospital Time)
[2018-06-04] MEDS: METOPROLOL XL 25 MG TAB PO SCH ×2 (05:15→16:37)
[2018-06-04 06:10] LABS: Absolute Lymphocytes (CBC) 1.6 K/uL (0.7-4.9); Absolute Monocytes 1.1 K/uL (0.1-1.3); Absolute Neutrophil 6.4 K/uL (1.8-8.0); Basophils % 1.1 % (0-1.3); Eosinophils % 2.8 % (0-4.4); Hematocrit 36.6 % (39.6-49.0); Lymphocytes % 16.5 % (15.3-44.8); MPV 7.8 fL (7.6-11.3); RBC Red Blood Cell Count 4.16 M/uL (4.33-5.43)
[2018-06-04 06:22] LABS: Albumin 2.7 g/dL (3.4-5.0); BUN Blood Urea Nitrogen 13 mg/dL (7-18); Bicarbonate 28 mmol/L (21-32); Glucose Level 198 mg/dL (74-106); Prealbumin 9.4 mg/dL (20-40); Sodium Level 136 mmol/L (136-145)
[2018-06-04] MEDS: INSULIN -REGULAR HUMAN 50 UNIT/0.5 ML ML SQ SCH ×4 (07:30→20:12)
[2018-06-04] MEDS: TRESIBA 50 UNIT SQ SCH (08:25)
[2018-06-04] MEDS: LIDOCAINE 5% PATCH TOP SCH (08:25)
[2018-06-04] MEDS: CLOPIDOGREL 75 MG TABLET PO SCH (08:26)
[2018-06-04] MEDS: EZETIMIBE 10 MG TAB PO SCH (08:26)
[2018-06-04] MEDS: TOLTERODINE LA 4 MG CAP PO SCH (08:26)
[2018-06-04] MEDS: MAGNESIUM OXIDE 400 MG TAB PO SCH ×2 (08:27→19:32)
[2018-06-04] MEDS: AMOX/K CLAV 500 MG TAB PO SCH ×2 (08:27→19:32)
[2018-06-04] MEDS: CYANOCOBALAMIN 1,000 MCG TAB PO SCH (08:27)
[2018-06-04] MEDS: IRBESARTAN 150 MG TAB PO SCH (08:27)
[2018-06-04] MEDS: FOLIC ACID 1 MG TABLET PO SCH (08:28)
[2018-06-04] MEDS: ASPIRIN 81 MG CHEWABLE TABLET PO SCH (08:28)
[2018-06-04] MEDS: APIXABAN 2.5 MG TABLET PO SCH ×2 (08:28→19:32)
--- NOTE | 2018-06-04 10:06 | FAST ---
SHIFT START DATE/TIME: 06/04/2018 07:00 (CDT) SHIFT END DATE/TIME: 06/04/2018 19:00 (CDT) NAME YANICK COOPER DATE OF : 1950 DATE OF ADMISSION: 05/29/2018 17:19 (CDT) PHONE: AGE: 68 N# [id number] GENDER: Male ENCOUNTER PHYSICIAN: Dr. Mc Clarke M.D. ADMISSION DIAGNOSIS: - Debility 16 - Debility (16) SEPSIS, UTI, HYPERTENSION, DIABETES MELLITUS. EATING: EATING - STEP 1: Does the patient require the assistance of a person or device, or need extra time when eating? Yes. EATING - STEP 2: Does the patient require the assistance of a helper? Yes. EATING - STEP 3: Does the patient perform half or more of the eating tasks? Yes. EATING - STEP 4: Does the patient need only supervision, cuing, coaxing OR help to apply an orthosis OR help to cut fo od, open containers, pour liquids, or butter bread? Yes. EATING - SCORE: 5-SUP GROOMING: Comb/brush hair Oral care Wash, rinse, and dry face Wash, rinse, and dry hands GROOMING - STEP 1: Does the patient require the assistance of a person or device, or need extra time when grooming? Yes. GROOMING - STEP 2: Does the patient require the assistance of a helper? No. The patient only requires an assistive devic e, OR takes more than reasonable time to groom, OR there is a concern for safety as the patient groom s GROOMING - SCORE: 6-ILA BATHING: Activity did not occur on this shift BATHING - SCORE: 0-UNK DRESSING - UPPER BODY: T-shirt/pullover shirt (four steps) ARTICLES SCORE Total number of steps: 4 DRESSING - UPPER BODY - STEP 1: Does the patient require help from a person or device, or need extra time when dressing above the [address]? Yes. DRESSING - UPPER BODY - STEP 2: Does the patient require the assistance of a helper? Yes. DRESSING - UPPER BODY - STEP 3: Does the helper touch the patient while dressing? Yes. DRESSING - UPPER BODY - STEP 4: How many of the total steps does the patient complete on his/her own? 2 DRESSING - UPPER BODY - SCORE: 3-MOD DRESSING - LOWER BODY: ARTICLES SCORE Total number of steps: 3 DRESSING - LOWER BODY - STEP 1: Does the patient require help from a person or device, or need extra time when dressing below the [address]? Yes. DRESSING - LOWER BODY - STEP 2: Does the patient require the assistance of a helper? Yes. DRESSING - LOWER BODY - STEP 3: Does the helper touch the patient while dressing? Yes. DRESSING - LOWER BODY - STEP 4: How many of the total steps does the patient complete on his/her own? 1 DRESSING - LOWER BODY - STEP 5: Does patient require total assistance for dressing below the waist such as the helper holding clothin g and performing basically all the activities? No. DRESSING - LOWER BODY - SCORE: 2-MAX TOILETING: TOILETING - STEP 1: Does the patient require the assistance of a person or device, or need extra time with toileting? Yes . TOILETING - STEP 2: Does the patient require the assistance of a helper? Yes. TOILETING - STEP 3: How much assistance does the patient require from the helper? Hands-on assistance from the helper TOILETING - STEP 4: Of the 3 tasks: 1) Adjusting clothing prior to use, 2) Cleansing of perineal area, 3) Adjusting clot margaret after use; How many tasks does the patient perform WITHOUT assistance of the helper? Two tasks TOILETING - SCORE: 3-MOD BLADDER MANAGEMENT: [place] removes incontinent device (Depends, pull ups, etc.); cleans the patient after accident / inco ntinent episode; and, applies new incontinent device. BLADDER MANAGEMENT - SCORE: 1-DEP BOWEL MANAGEMENT: BOWEL MANAGEMENT - STEP 1: Does the patient control bowels completely and intentionally without equipment devices or medications AND is always continent? No. BOWEL MANAGEMENT - STEP 2: Does the patient require the assistance of a helper? No, patient requires and manages independently a n assistive device such as a bedpan, bedside commode, absorbent pad, incontinent device, or collectin g device BOWEL MANAGEMENT - SCORE: 6-ILA TRANSFERS: BED, CHAIR, WHEELCHAIR: TRANSFERS: BED, CHAIR, WHEELCHAIR - STEP 1: Does the patient require assistance of a person or device, or need extra time with bed, chair, or whe elchair transfers? Yes. TRANSFERS: BED, CHAIR, WHEELCHAIR - STEP 2: Does the patient require the assistance of a helper? Yes. TRANSFERS: BED, CHAIR, WHEELCHAIR - STEP 3: How much assistance does the patient require from the helper? Lifting of the patient TRANSFERS: BED, CHAIR, WHEELCHAIR - STEP 4: Does the helper lift the patient ONLY up? ONLY down? Up AND Down? ONLY up. TRANSFERS: BED, CHAIR, WHEELCHAIR - SCORE: 3-MOD TRANSFERS: TOILET: TRANSFERS: TOILET - STEP 1: Does the patient require the assistance of a person or device, or need extra time with toilet transfe rs? Yes. TRANSFERS: TOILET - STEP 2: Does the patient require the assistance of a helper? Yes. TRANSFERS: TOILET - STEP 3: How much assistance does the patient require from the helper? Patient performs half or more of the tr ansferring tasks TRANSFERS: TOILET - STEP 4: Does the patient need only incidental help such as contact guard or steadying during toilet transfer? No. Patient needs more than incidental help TRANSFERS: TOILET - SCORE: 3-MOD TRANSFERS: SHOWER: Activity did not occur on this shift TRANSFERS: SHOWER - SCORE: 0-UNK TRANSFERS: TUB: Activity did not occur on this shift TRANSFERS: TUB - SCORE: 0-UNK LOCOMOTION: WALK: Activity did not occur on this shift LOCOMOTION: WALK - SCORE: 0-UNK LOCOMOTION: WHEELCHAIR: Activity did not occur on this shift LOCOMOTION: WHEELCHAIR - SCORE: 0-UNK COMPREHENSION: COMPREHENSION: TYPE: Both COMPREHENSION - STEP 1: Does the patient require help from a person or device, or need extra time to understand complex and a bstract ideas (such as current events, finances, discharge planning, medical issues, relationships, e tc)? No. COMPREHENSION - STEP 2: Does the patient need extra time, require an assistive device (such as glasses for visual comprehensi on or a hearing aid for auditory comprehension) or does s/he have mild difficulty understanding compl ex and abstract information? Yes. COMPREHENSION - SCORE: 6-ILA EXPRESSION EXPRESSION: TYPE: Both EXPRESSION - STEP 1: Does the patient require help from a person or device, or need extra time expressing complex and abst ract ideas (such as current events, finances, discharge planning, medical issues, relationships, etc) ? Yes. EXPRESSION - STEP 2: Does the patient require help to express basic necessities or ideas (such as hunger, thirst, sleep, s afety, daily schedule, room location, or discomfort) half or more of the time? No. EXPRESSION - STEP 3: How often does the patient need help to express directions and conversation about basic needs? Less t story 10% of the time EXPRESSION - SCORE: 5-SUP SOCIAL INTERACTION: SOCIAL INTERACTION - STEP 1: Does the patient require a helper to interact with others in social and therapeutic situations? Yes. SOCIAL INTERACTION - STEP 2: Does the patient interact appropriately half or more of the time? Yes. SOCIAL INTERACTION - STEP 3: How often does the patient need help to interact appropriately? Less than 10% of the time SOCIAL INTERACTION - SCORE: 5-SUP PROBLEM SOLVING: PROBLEM SOLVING - STEP 1: Does the patient need help from a person or device, or need extra time to solve complex problems such as managing a checking account or confronting interpersonal problems? Yes. PROBLEM SOLVING - STEP 2: Does the patient solve basic routine problems half or more of the time? Yes. PROBLEM SOLVING - STEP 3: How often does the patient need help to solve basic routine problems? Less than 10% of the time PROBLEM SOLVING - SCORE: 5-SUP MEMORY: MEMORY - STEP 1: Does the patient need help from a person or device, or need extra time to remember frequently encount ered people, daily routines, and executing requests? Yes. MEMORY - STEP 2: How often does the patient need help to remember frequently encountered people, daily routines, and e xecuting requests? 10% - 24% of the time MEMORY - SCORE: 4-MIN SIGNATURE PANEL: The following modified sections: Eating - Score, Grooming - Score, Bathing - Score, Dressing - Upper Body - Score, Dressing - Lower Body - Score, Toileting - Score, Bladder Management - Score, Bowel Man agement - Score, Transfers: Bed, Chair, Wheelchair - Score, Transfers: Toilet - Score, Transfers: Lisa wer - Score, Transfers: Tub - Score, Locomotion: Walk - Score, Locomotion: Wheelchair - Score, Compre hension - Score, Expression - Score, Social Interaction - Score, Problem Solving - Score, Memory - Sc ore were [electronically] signed by Raza Harry on FriJun 04 2018 10:05:40 GMT-0500 (Central Daylight Time)
--- NOTE | 2018-06-04 10:11 | EEG ---
CHART: [id number] TEST ID#: [id number] DATE OF STUDY: 06/03/18 THE EEG WAS RECORDED PORTABLE IN THE PATIENTS ROOM ON A 17 CHANNEL MACHINE. ELECTRODES WERE APPLIED IN THE USUAL MANNER USING THE INTERNATIONAL 10-20 SYSTEM. THE WAKING BACKGROUND RHYTHM IN THIS RECORD CONSISTS OF POORLY DEVELOPED AND POORLY ORGANIZED WAVES OF 7 HZ., MAXIMAL IN THE POSTERIOR HEAD REGIONS WHICH ATTENUATE NORMALLY WITH EYE OPENING. MODERATE VOLTAGE 1.5-3 HZ ACTIVITY IS EXPRESSED INTERMITTENTLY IN THE FRONTAL, CENTRAL, AND TEMPORAL REGIONS. LOW-VOLTAGE 15-18 HZ ACTIVITY IS DIFFUSELY EXPRESSED. THERE ARE NO FOCAL OR LATERALIZING FEATURES. NO EPILEPTIFORM ACTIVITY APPEARS. SLEEP OCCURRED NATURALLY. IN ADDITION TO NORMAL SLEEP PATTERNS ARE PRESENT. HYPERVENTILATION WAS NOT PREFORMED. PHOTIC STIMULATION PRODUCED NO DRIVING BILATERALLY. IMPRESSION: THIS IS A MILD TO MODERATELY ABNORMAL EEG DUE TO A MILD TO MODERATELY SLOW BACKGROUD. THIS IS A NON-SPECIFIC FINDING INDICATING THE PRESENCE OF A MILD TO MODERATELY DIFFUSE DISTURBANCE IN CEREBRAL ACTIVITY.
--- NOTE | 2018-06-04 15:25 | FAST ---
ENCOUNTER DATE AND TIME: 06/04/2018 08:00 (CDT) NAME YANICK COOPER DATE OF : 1950 DATE OF ADMISSION: 05/29/2018 17:19 (CDT) PHONE: AGE: 68 SSN# [id number] GENDER: Male ENCOUNTER PHYSICIAN: Dr. Mc Clarke M.D. ADMISSION DIAGNOSIS: - Debility 16 - Debility (16) SEPSIS, UTI, HYPERTENSION, DIABETES MELLITUS. EATING: Activity did not occur on this shift EATING - SCORE: 0-UNK GROOMING: Activity did not occur on this shift GROOMING - SCORE: 0-UNK BATHING: Activity did not occur on this shift BATHING - SCORE: 0-UNK DRESSING - UPPER BODY: Activity did not occur on this shift Patient is not dressing in public clothing ARTICLES SCORE Total number of steps: 0 DRESSING - UPPER BODY - SCORE: 0-UNK DRESSING - LOWER BODY: Activity did not occur on this shift Patient is not dressing in public clothing ARTICLES SCORE Total number of steps: 0 DRESSING - LOWER BODY - SCORE: 0-UNK TOILETING: Activity did not occur on this shift TOILETING - SCORE: 0-UNK BLADDER MANAGEMENT: Activity did not occur on this shift BLADDER MANAGEMENT - SCORE: 7-IND BOWEL MANAGEMENT: Activity did not occur on this shift BOWEL MANAGEMENT - SCORE: 7-IND TRANSFERS: BED, CHAIR, WHEELCHAIR: TRANSFERS: BED, CHAIR, WHEELCHAIR - STEP 1: Does the patient require assistance of a person or device, or need extra time with bed, chair, or whe elchair transfers? Yes. TRANSFERS: BED, CHAIR, WHEELCHAIR - STEP 2: Does the patient require the assistance of a helper? Yes. TRANSFERS: BED, CHAIR, WHEELCHAIR - STEP 3: How much assistance does the patient require from the helper? Only supervision TRANSFERS: BED, CHAIR, WHEELCHAIR - SCORE: 5-SUP TRANSFERS: TOILET: Activity did not occur on this shift TRANSFERS: TOILET - SCORE: 0-UNK TRANSFERS: SHOWER: Activity did not occur on this shift TRANSFERS: SHOWER - SCORE: 0-UNK TRANSFERS: TUB: Activity did not occur on this shift TRANSFERS: TUB - SCORE: 0-UNK LOCOMOTION: WALK: LOCOMOTION: WALK - STEP 1: Does the patient need help from a person or device, or need extra time to walk 150 feet? Yes. LOCOMOTION: WALK - STEP 2: How much assistance does the patient require to walk a minimum of 150 feet? Patient walks less than 1 50 feet - but more than 50 feet - with the assistance of only one helper LOCOMOTION: WALK - SCORE: 2-MAX LOCOMOTION: WHEELCHAIR: Activity did not occur on this shift LOCOMOTION: WHEELCHAIR - SCORE: 0-UNK LOCOMOTION: STAIRS: Activity did not occur on this shift LOCOMOTION: STAIRS - SCORE: 0-UNK COMPREHENSION: COMPREHENSION - SCORE: 0-UNK EXPRESSION EXPRESSION - SCORE: 0-UNK SOCIAL INTERACTION: SOCIAL INTERACTION - SCORE: 0-UNK PROBLEM SOLVING: PROBLEM SOLVING - SCORE: 0-UNK MEMORY: MEMORY - SCORE: 0-UNK SIGNATURE PANEL: The following modified sections: Transfers: Bed, Chair, Wheelchair - Score, Transfers: Toilet - Score , Locomotion: Walk - Score, Locomotion: Wheelchair - Score, Locomotion: Stairs - Score were [electron ernesto] signed by Zoran Colón PT on FriJun 04 2018 15:24:42 [facility]-0500 (Central Daylight Time)
--- NOTE | 2018-06-04 18:18 | R.PN ---
ENCOUNTER DATE AND TIME: 06/04/2018 18:12 (CDT) NAME YANICK COOPER DATE OF : 1950 DATE OF ADMISSION: 05/29/2018 17:19 (CDT) SEPSIS, UTI, HYPERTENSION, DIABETES MELLITUSCHIEF COMPLAINT: Debility, urinary tract infection SUBJECTIVE: Pt denied any Shortness of Breath. Pt denied any depression. Propelled wheelchair 245' with minimum assistance. WBC 9.4, Hgb 12.4, Plt 380, glucose range 197 to 2 55. Prealbumin 9.4. On hemocyte plus. Brain MRI shows no acute changes but moderate cerebral atrophy with small vessel ischemic disease. C- Spine CT shows moderate mid cervical spondylosis and no fractures. Bilateral hip x-rays show osteoart hritis with no fractures. VITAL SIGNS Temperature: 98.2 F SBP/DBP: 123/57 Pulse: 65 to 95 Resp: 16 MEDICATION ALLERGIES: ZOLPIDEM ENVIRONMENTAL ALLERGIES: None Known - Substance Allergies None Known - Other Allergies None Known NURSING: - Shower allowing shower - Lab Results blood Sugar Check ACHS ACTIVITIES OOB only with supervision THERAPIES: - Occupational Therapy Evaluate and Treat. - Physical Therapy Evaluate and Treat. PHYSICAL EXAM - Gen Alert and awake Lying in bed No apparent distress Oriented to: person, time, and place - Skin No breakdown No abnormalities - Eyes No abnormalities - ENMT No abnormalities - Neck No abnormalities - CVS RRR - Chest No abnormalities - Resp Clear to auscultation - Abd +bowel sounds - GI nondistended Deferred - No abnormalities - Ext No significant edema - MSK 4+/5 weakness in both lower extremities. Neck muscle spasms. - Neuro No focal neurological deficits. - Psych No abnormalities ASSESSMENT: Pt. is a 68 yo Right-handed white male.On 05/27/2018 he was admitted to [facility] with diagnosis SEPSIS, UTI, HYPERTENSION, DIABETES MELLITUS.His impairment category is Debility 1 6 - Debility (16).Pre-morbidly, Pt. was independent/mod-I in Self-Care, Sphincter Control, Transfers Control, Locomotion, Communication, and Social Cognition; and he had good Sphincter Control.Currentl y, he has deficits of Transfers Control, Locomotion, Endurance, Balance, Safety Awareness, and Self-C are.Pt. is now referred to [facility] for acute in-patient rehabilitation in o rder to maximize patient's functional independence in activities of daily living, strength, ROM, and mobility.- Rehab Goal Patient has realistic goal of being discharged at assistance level 6-Nestor to reside at Home with Fam rl/Relatives. MDM/PLAN: - Physical Therapy Gait dysfunction - to improve, our physical therapists will perform initial evaluation of pt's statu s upon admission and devise an individualized program for Gait Training, and Wheel Chair mobility Inability to transfer - to improve, our physical therapists will perform initial evaluation of pt's status upon admission and devise an individualized program for Bed mobility Need for home safety evaluation - to improve, our physical therapists will perform initial evaluatio n of pt's status upon admission and devise an individualized program for Home Evaluation Need in caregiver upon discharge - to improve, our physical therapists will perform initial evaluati on of pt's status upon admission and devise an individualized program for Caregiver Training New precaution - to improve, our physical therapists will perform initial evaluation of pt's status upon admission and devise an individualized program for Patient precaution education Edema - to improve, our physical therapists will perform initial evaluation of pt's status upon admi ssion and devise an individualized program for Elevation Training, and Lymphedema Therapy Poor balance - to improve, our physical therapists will perform initial evaluation of pt's status up on admission and devise an individualized program for Balance Training Poor endurance - to improve, our physical therapists will perform initial evaluation of pt's status upon admission and devise an individualized program for Endurance Training Weakness - to improve, our physical therapists will perform initial evaluation of pt's status upon a dmission and devise an individualized program for Aquatic Therapy, Neuromuscular Reeducation, and Str engthening Achieving independence - to improve, our physical therapists will perform initial evaluation of pt's status upon admission and devise an individualized program for Community Reintegration Activities - Occupational Therapy ADL deficits - to improve, our occupation therapists will perform initial evaluation of pt's status upon admission and devise an individualized program for Bathing, Bed mobility, Community Reintegratio n, Cooking, Dressing, Eating, Fine Motor Skills, Grooming, Homemaking, Kitchen Mobility, Laundry, Pat ient Education, Safety Awareness, Splinting - Positioning, Transfers(Toilet, Tub, Shower), and Wheel Chair Management Need for patient care coordinator - to improve, our occupation therapists will perform initial evaluation of pt's status upon admission and devise an individualized program for Caregiver Training Weakness - to improve, our occupation therapists will perform initial evaluation of pt's status upon admission and devise an individualized program for Aquatic Therapy, Balance, Endurance, UE ROM, and UE strengthening - Diet Type Continue Regular - Diet - Liquid Texture Continue Regular - Tube Feed Continue N/A - Lab Results blood Sugar Check ACHS - Diet - Solid Texture Continue Regular - Shower allowing shower FUNCTIONAL STATUS: UPDATED AT WEEKLY TEAM CONFERENCE - Bladder Same accident frequency: 7-Ind - No accidents in the past 7 days - Bowel Same accident frequency: 7-Ind - No accidents in the past 7 days - Walking Same score based on distance walked: 3(>=150ft) - Wheelchair Same score based on distance traveled: 0(N/A) FUNCTIONAL STATUS: - Self-Care A. Eating Ind B. Grooming Ind C. Bathing sup D. Dressing - Upper sup E. Dressing - Lower sup F. Toileting CGA - Sphincter Control G: Bladder control Ind H: Bowel control Ind - Transfers Control I. Bed/Chair/Wheelchair CGA J. Toilet CGA K. Tub/Shower ADNO - Locomotion L. Walk/Wheelchair (C) Harley/CGA L. Walk/Wheelchair (W) Harley/CGA M. Stairs ADNO - Communication N. Comprehension (B) Ind O. Expression (B) Ind - Social Cognition P. Social Interaction Ind Q. Problem Solving Ind R. Memory Ind - Endurance Fair - Balance Fair - Safety Awareness Fair [facility] DEFICITS: Transfers Control, Locomotion, Endurance, Balance, Safety Awareness, and Self-Care SIGNATURE PANEL: (CDT)
[2018-06-04] MEDS: ROSUVASTATIN 10 MG TAB PO SCH (20:11)
[2018-06-04] MEDS: DOCUSATE NA/SENNA CONC 1 TAB PO SCH (20:11)
--- NOTE | 2018-06-05 01:24 | FAST ---
SHIFT START DATE/TIME: 06/04/2018 19:00 (CDT) SHIFT END DATE/TIME: 06/05/2018 07:00 (CDT) NAME YANICK COOPER DATE OF : 1950 DATE OF ADMISSION: 05/29/2018 17:19 (CDT) PHONE: AGE: 68 SSN# [id number] GENDER: Male ENCOUNTER PHYSICIAN: Dr. Mc Clarke M.D. ADMISSION DIAGNOSIS: - Debility 16 - Debility (16) SEPSIS, UTI, HYPERTENSION, DIABETES MELLITUS. EATING: Activity did not occur on this shift EATING - SCORE: 0-UNK GROOMING: Activity did not occur on this shift GROOMING - SCORE: 0-UNK BATHING: Activity did not occur on this shift BATHING - SCORE: 0-UNK DRESSING - UPPER BODY: Patient is not dressing in public clothing ARTICLES SCORE Total number of steps: 0 DRESSING - UPPER BODY - SCORE: 0-UNK DRESSING - LOWER BODY: Patient is not dressing in public clothing ARTICLES SCORE Total number of steps: 0 DRESSING - LOWER BODY - SCORE: 0-UNK TOILETING: Activity did not occur on this shift TOILETING - SCORE: 0-UNK BLADDER MANAGEMENT: [place] removes incontinent device (Depends, pull ups, etc.); cleans the patient after accident / inco ntinent episode; and, applies new incontinent device. BLADDER MANAGEMENT - SCORE: 1-DEP BLADDER MANAGEMENT - FREQUENCY OF ACCIDENTS: BLADDER MANAGEMENT(FA) - STEP 1: How many accidents has the patient had during the current shift? 2 BOWEL MANAGEMENT: Activity did not occur on this shift BOWEL MANAGEMENT - SCORE: 7-IND TRANSFERS: BED, CHAIR, WHEELCHAIR: Activity did not occur on this shift TRANSFERS: BED, CHAIR, WHEELCHAIR - SCORE: 0-UNK TRANSFERS: TOILET: Activity did not occur on this shift TRANSFERS: TOILET - SCORE: 0-UNK TRANSFERS: SHOWER: Activity did not occur on this shift TRANSFERS: SHOWER - SCORE: 0-UNK TRANSFERS: TUB: Activity did not occur on this shift TRANSFERS: TUB - SCORE: 0-UNK LOCOMOTION: WALK: Activity did not occur on this shift LOCOMOTION: WALK - SCORE: 0-UNK LOCOMOTION: WHEELCHAIR: Activity did not occur on this shift LOCOMOTION: WHEELCHAIR - SCORE: 0-UNK COMPREHENSION: COMPREHENSION: TYPE: Both COMPREHENSION - STEP 1: Does the patient require help from a person or device, or need extra time to understand complex and a bstract ideas (such as current events, finances, discharge planning, medical issues, relationships, e tc)? Yes. COMPREHENSION - STEP 2: Does the patient require help to understand questions or statements about basic needs or ideas (such as hunger, thirst, sleep, safety, daily schedule, room location, or discomfort) half or more of the t mary? No. COMPREHENSION - STEP 3: How often does the patient need help to understand directions and conversation about basic needs? Les s than 10% of the time COMPREHENSION - SCORE: 5-SUP EXPRESSION EXPRESSION: TYPE: Both EXPRESSION - STEP 1: Does the patient require help from a person or device, or need extra time expressing complex and abst ract ideas (such as current events, finances, discharge planning, medical issues, relationships, etc) ? Yes. EXPRESSION - STEP 2: Does the patient require help to express basic necessities or ideas (such as hunger, thirst, sleep, s afety, daily schedule, room location, or discomfort) half or more of the time? No. EXPRESSION - STEP 3: How often does the patient need help to express directions and conversation about basic needs? Less t story 10% of the time EXPRESSION - SCORE: 5-SUP SOCIAL INTERACTION: SOCIAL INTERACTION - STEP 1: Does the patient require a helper to interact with others in social and therapeutic situations? Yes. SOCIAL INTERACTION - STEP 2: Does the patient interact appropriately half or more of the time? Yes. SOCIAL INTERACTION - STEP 3: How often does the patient need help to interact appropriately? Less than 10% of the time SOCIAL INTERACTION - SCORE: 5-SUP PROBLEM SOLVING: Patient requires bed/chair alarms due to attempts to get up unassisted when helper is needed. PROBLEM SOLVING - STEP 1: How often do the bed/chair alarms go off? Occasionally - the alarms go off about 25% or less PROBLEM SOLVING - SCORE: 4-MIN MEMORY: MEMORY - STEP 1: How often do the bed/chair alarms go off? Occasionally - the alarms go off about 25% of the time or l ess MEMORY - SCORE: 4-MIN SIGNATURE PANEL: The following modified sections: Eating - Score, Grooming - Score, Bathing - Score, Dressing - Upper Body - Score, Dressing - Lower Body - Score, Toileting - Score, Bladder Management - Score, Bowel Man agement - Score, Transfers: Bed, Chair, Wheelchair - Score, Transfers: Toilet - Score, Transfers: Lisa wer - Score, Transfers: Tub - Score, Locomotion: Walk - Score, Locomotion: Wheelchair - Score, Compre hension - Score, Expression - Score, Social Interaction - Score, Problem Solving - Score, Memory - Sc ore were [electronically] signed by Elvie Pelaez RN on FriJun 05 2018 01:22:46 T-0500 ([facility] Time)
[2018-06-05] MEDS: METOPROLOL XL 25 MG TAB PO SCH ×2 (05:08→17:26)
[2018-06-05] MEDS: IRBESARTAN 150 MG TAB PO SCH (08:00)
[2018-06-05] MEDS: LIDOCAINE 5% PATCH TOP SCH ×2 (08:00→08:31)
[2018-06-05] MEDS: INSULIN -REGULAR HUMAN 50 UNIT/0.5 ML ML SQ SCH ×4 (08:30→20:38)
[2018-06-05] MEDS: TRESIBA 50 UNIT SQ SCH (08:31)
[2018-06-05] MEDS: ASPIRIN 81 MG CHEWABLE TABLET PO SCH (08:32)
[2018-06-05] MEDS: TOLTERODINE LA 4 MG CAP PO SCH (08:32)
[2018-06-05] MEDS: APIXABAN 2.5 MG TABLET PO SCH ×2 (08:32→19:27)
[2018-06-05] MEDS: FOLIC ACID 1 MG TABLET PO SCH (08:33)
[2018-06-05] MEDS: MAGNESIUM OXIDE 400 MG TAB PO SCH ×2 (08:33→19:27)
[2018-06-05] MEDS: TRAMADOL HCL 50 MG TAB PO PRN (08:33)
[2018-06-05] MEDS: CLOPIDOGREL 75 MG TABLET PO SCH (08:34)
[2018-06-05] MEDS: AMOX/K CLAV 500 MG TAB PO SCH (08:34)
[2018-06-05] MEDS: FE SULF/FA/VIT B COMP & C TAB PO SCH (08:34)
[2018-06-05] MEDS: EZETIMIBE 10 MG TAB PO SCH (08:34)
[2018-06-05] MEDS: CYANOCOBALAMIN 1,000 MCG TAB PO SCH (08:34)
--- NOTE | 2018-06-05 10:04 | P.RH.PN ---
Estimated Length of Stay: 12 Expected Discharge Date: 06/09/18 Discharge Disposition Plan: Home Family Support: Yes [facility] Goal: Mobility, Transfers, Self Care Vital Signs: Last Vital Signs Temp 96.8 F 06/05/18 07:40 Pulse 67 06/05/18 08:00 Resp 16 06/05/18 07:40 BP 115/79 06/05/18 08:00 Pulse Ox 94 06/05/18 07:40 Laboratory: Laboratory Last Values WBC 9.4 K/uL (4.3-10.9) D 06/04/18 05:48 RBC 4.16 M/uL (4.33-5.43) L 06/04/18 05:48 Hgb 12.4 g/dL (13.6-17.9) L 06/04/18 05:48 Hct 36.6 % (39.6-49.0) L 06/04/18 05:48 MCV 87.9 fL (80-100) 06/04/18 05:48 MCH 29.7 pg (27.0-35.0) 06/04/18 05:48 MCHC 33.8 g/dL (32.0-36.0) 06/04/18 05:48 RDW 14.5 % (12.1-15.2) 06/04/18 05:48 Plt Count 380 K/uL (152-406) D 06/04/18 05:48 MPV 7.8 fL (7.6-11.3) 06/04/18 05:48 Neutrophils % 67.6 % (41.7-73.7) 06/04/18 05:48 Lymphocytes % 16.5 % (15.3-44.8) 06/04/18 05:48 Monocytes % 12.0 % (3.3-12.3) 06/04/18 05:48 Eosinophils % 2.8 % (0-4.4) 06/04/18 05:48 Basophils % 1.1 % (0-1.3) 06/04/18 05:48 Absolute Neutrophils 6.4 K/uL (1.8-8.0) 06/04/18 05:48 Absolute Lymphocytes 1.6 K/uL (0.7-4.9) 06/04/18 05:48 Absolute Monocytes 1.1 K/uL (0.1-1.3) 06/04/18 05:48 Absolute Eosinophils 0.3 K/uL (0-0.5) 06/04/18 05:48 Absolute Basophils 0.1 K/uL (0-0.5) 06/04/18 05:48 Sodium 136 mmol/L (136-145) 06/04/18 05:48 Potassium 4.0 mmol/L (3.5-5.1) 06/04/18 05:48 Chloride 102 mmol/L (98-107) 06/04/18 05:48 Carbon Dioxide 28 mmol/L (21-32) 06/04/18 05:48 BUN 13 mg/dL (7-18) 06/04/18 05:48 Creatinine 0.73 mg/dL (0.55-1.3) 06/04/18 05:48 Estimated GFR > 90 mL/min (=/>90) 06/04/18 05:48 Glucose 198 mg/dL (74-106) H 06/04/18 05:48 POC Glucose 225 mg/dl (65-120) H 06/04/18 19:22 Calcium 8.7 mg/dL (8.5-10.1) 06/04/18 05:48 Magnesium 2.2 mg/dL (1.8-2.4) 05/30/18 06:29 Albumin 2.7 g/dL (3.4-5.0) L 06/04/18 05:48 Prealbumin 9.4 mg/dL (20-40) L 06/04/18 05:48 Urine Color Dk yellow 06/03/18 15:07 Urine Appearance Clear 06/03/18 15:07 Urine pH 5.5 (5.0-7.0) 06/03/18 15:07 Ur Specific [place] 1.025 (1.005-1.030) 06/03/18 15:07 Urine Ketones Negative (NEG) 06/03/18 15:07 Urine Blood Negative (NEG) 06/03/18 15:07 Urine Nitrite Negative (NEG) 06/03/18 15:07 Urine Bilirubin Negative (NEG) 06/03/18 15:07 Urine Urobilinogen 1.0 mg/dL (0.2-1.0) 06/03/18 15:07 Ur Leukocyte Esterase Negative (NEG) 06/03/18 15:07 Urine RBC Cancelled 05/29/18 19:48 Urine WBC Cancelled 05/29/18 19:48 Ur Squamous Epith Cells Cancelled 05/29/18 19:48 Ur Urothelial Cells Cancelled 05/29/18 19:48 Calcium Oxalate Crystal Cancelled 05/29/18 19:48 Uric Acid Crystals Cancelled 05/29/18 19:48 Triple Phos Crystals Cancelled 05/29/18 19:48 Other Crystals Cancelled 05/29/18 19:48 Amorphous Sediment Cancelled 05/29/18 19:48 Glitter Cells Cancelled 05/29/18 19:48 Urine Bacteria Cancelled 05/29/18 19:48 Hyaline Casts Cancelled 05/29/18 19:48 Fine Granular Casts Cancelled 05/29/18 19:48 Coarse Granular Casts Cancelled 05/29/18 19:48 Waxy Casts Cancelled 05/29/18 19:48 RBC Casts Cancelled 05/29/18 19:48 WBC Casts Cancelled 05/29/18 19:48 Urine Mucus Cancelled 05/29/18 19:48 Urine Other Cancelled 05/29/18 19:48 Urine Trichomonas Cancelled 05/29/18 19:48 Urine Yeast Cancelled 05/29/18 19:48 Ur Yeast w Hyphae Cancelled 05/29/18 19:48 Urine Yeast (Budding) Cancelled 05/29/18 19:48 Urine Sperm Cancelled 05/29/18 19:48 Urine Culture Reflexed Cancelled 05/29/18 19:48 Urine Total Volume Cancelled 05/29/18 19:48 Urine Glucose 3+ (NEG) H 06/03/18 15:07 Urine Total Protein Negative (NEG) 06/03/18 15:07 Weight: 251 lb 6.4 oz Wound Present: No Closed Surgical Incision Present: No Negative Pressure Wound Therapy Present: No Physician Update: His labs are stable. Prealbumin is low at 9.4. He is walking 125' with stand by asssistance. His cognitive functioning has improved after medications have been adjusted and his UTI has been treated. Medical Issues: DVT Prophylaxis - liquis 2.5mg BID PO Pain Issues: Tramadol 50mg Q4H PRN Functional Improvement: pt initially started off with slow progress and difficulty participating; however, the past couple days, pt has became more alert and able to participate. pt is demonstrating good progress. pt continues to require skilled PT services to enhance functional performance and safety with functional mobility. Functional Improvement Occupational Therapy: Patient seems to be able to understand and recall use of adaptive equipment to assist with BADL tasks properly. Will continue to address STG/LTG as set in POC before a safe d/c home with spouse. Speech Therapy Update: Patient dejahign good gains. Cognitive impairment is improved from Severe to MOderate in a short period of time. He exhibits reduced memory but uses external aides with ALINA. Minimal dysphagia was identified due to slow mastication and mild increased oral transit; regular foods and liquids recommended with swallow precautions Summary: Patient's care plan and care home goals have been reviewed and revised as necessary. Please see the Rehabilitation Signature page for all necessary signatures.
--- NOTE | 2018-06-05 17:58 | FAST ---
SHIFT START DATE/TIME: 06/05/2018 07:00 (CDT) SHIFT END DATE/TIME: 06/05/2018 19:00 (CDT) NAME YANICK COOPER DATE OF : 1950 DATE OF ADMISSION: 05/29/2018 17:19 (CDT) PHONE: AGE: 68 N# [id number] GENDER: Male ENCOUNTER PHYSICIAN: Dr. Mc Clrake M.D. ADMISSION DIAGNOSIS: - Debility 16 - Debility (16) SEPSIS, UTI, HYPERTENSION, DIABETES MELLITUS. EATING: EATING - STEP 1: Does the patient require the assistance of a person or device, or need extra time when eating? Yes. EATING - STEP 2: Does the patient require the assistance of a helper? Yes. EATING - STEP 3: Does the patient perform half or more of the eating tasks? Yes. EATING - STEP 4: Does the patient need only supervision, cuing, coaxing OR help to apply an orthosis OR help to cut fo od, open containers, pour liquids, or butter bread? Yes. EATING - SCORE: 5-SUP GROOMING: Activity did not occur on this shift GROOMING - SCORE: 0-UNK BATHING: Activity did not occur on this shift BATHING - SCORE: 0-UNK DRESSING - UPPER BODY: Activity did not occur on this shift ARTICLES SCORE Total number of steps: 0 DRESSING - UPPER BODY - SCORE: 0-UNK DRESSING - LOWER BODY: Activity did not occur on this shift ARTICLES SCORE Total number of steps: 0 DRESSING - LOWER BODY - SCORE: 0-UNK TOILETING: TOILETING - STEP 1: Does the patient require the assistance of a person or device, or need extra time with toileting? Yes . TOILETING - STEP 2: Does the patient require the assistance of a helper? Yes. TOILETING - STEP 3: How much assistance does the patient require from the helper? Only supervision TOILETING - SCORE: 5-SUP BLADDER MANAGEMENT: BLADDER MANAGEMENT - STEP 1: Does the patient control the bladder completely and intentionally without equipment or devices or med ications, and is always continent? No. BLADDER MANAGEMENT - STEP 2: Does the patient require the assistance of a helper? Yes. BLADDER MANAGEMENT - STEP 3: How much assistance does the patient require from the helper? Only set-up of equipment - such as plac ing it within reach of the patient or emptying a device - to maintain either satisfactory voiding pat tern or managing an external device, such as an absorbent pad, ileal device, or catheter BLADDER MANAGEMENT - SCORE: 5-SUP BLADDER MANAGEMENT - FREQUENCY OF ACCIDENTS: BLADDER MANAGEMENT(FA) - STEP 1: How many accidents has the patient had during the current shift? 1 BOWEL MANAGEMENT: BOWEL MANAGEMENT - STEP 1: Does the patient control bowels completely and intentionally without equipment devices or medications AND is always continent? Yes. BOWEL MANAGEMENT - SCORE: 7-IND BOWEL MANAGEMENT - FREQUENCY OF ACCIDENTS: BOWEL MANAGEMENT(FA) - STEP 1: How many accidents has the patient had during the current shift? 0 TRANSFERS: BED, CHAIR, WHEELCHAIR: TRANSFERS: BED, CHAIR, WHEELCHAIR - STEP 1: Does the patient require assistance of a person or device, or need extra time with bed, chair, or whe elchair transfers? Yes. TRANSFERS: BED, CHAIR, WHEELCHAIR - STEP 2: Does the patient require the assistance of a helper? Yes. TRANSFERS: BED, CHAIR, WHEELCHAIR - STEP 3: How much assistance does the patient require from the helper? Steadying/guiding assistance TRANSFERS: BED, CHAIR, WHEELCHAIR - SCORE: 4-MIN TRANSFERS: TOILET: TRANSFERS: TOILET - STEP 1: Does the patient require the assistance of a person or device, or need extra time with toilet transfe rs? Yes. TRANSFERS: TOILET - STEP 2: Does the patient require the assistance of a helper? Yes. TRANSFERS: TOILET - STEP 3: How much assistance does the patient require from the helper? Patient performs half or more of the tr ansferring tasks TRANSFERS: TOILET - STEP 4: Does the patient need only incidental help such as contact guard or steadying during toilet transfer? Yes. TRANSFERS: TOILET - SCORE: 4-MIN TRANSFERS: SHOWER: Activity did not occur on this shift TRANSFERS: SHOWER - SCORE: 0-UNK TRANSFERS: TUB: Activity did not occur on this shift TRANSFERS: TUB - SCORE: 0-UNK LOCOMOTION: WALK: Activity did not occur on this shift LOCOMOTION: WALK - SCORE: 0-UNK LOCOMOTION: WHEELCHAIR: Activity did not occur on this shift LOCOMOTION: WHEELCHAIR - SCORE: 0-UNK COMPREHENSION: COMPREHENSION - SCORE: 0-UNK EXPRESSION EXPRESSION - SCORE: 0-UNK SOCIAL INTERACTION: SOCIAL INTERACTION - SCORE: 0-UNK PROBLEM SOLVING: PROBLEM SOLVING - SCORE: 0-UNK MEMORY: MEMORY - SCORE: 0-UNK SIGNATURE PANEL: The following modified sections: Eating - Score, Grooming - Score, Bathing - Score, Dressing - Upper Body - Score, Dressing - Lower Body - Score, Toileting - Score, Bladder Management - Score, Bowel Man agement - Score, Transfers: Bed, Chair, Wheelchair - Score, Transfers: Toilet - Score, Transfers: Lisa wer - Score, Transfers: Tub - Score, Locomotion: Walk - Score, Locomotion: Wheelchair - Score, Compre hension - Score, Expression - Score, Social Interaction - Score, Problem Solving - Score, Memory - Sc ore were [electronically] signed by Marcela Barillas CNA on FriJun 05 2018 17:57:39 T-0500 ([facility])
[2018-06-05] MEDS: MELATONIN 3 MG TABLET PO PRN (19:27)
--- NOTE | 2018-06-05 19:35 | RAD REPORT ---
EXAM DESCRIPTION: RAD - Hand Left 2 View - 06/05/2018 7:10 pm CLINICAL HISTORY: Left hand pain FINDINGS: No fracture or dislocation is seen. A limited two-view series was obtained The bones are osteoporotic. 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 Calcification of the fib rocartilage present
[2018-06-05] MEDS: ROSUVASTATIN 10 MG TAB PO SCH (20:21)
[2018-06-05] MEDS: DOCUSATE NA/SENNA CONC 1 TAB PO SCH (20:21)
--- NOTE | 2018-06-06 02:20 | FAST ---
SHIFT START DATE/TIME: 06/05/2018 19:00 (CDT) SHIFT END DATE/TIME: 06/06/2018 07:00 (CDT) NAME YANICK COOPER DATE OF : 1950 DATE OF ADMISSION: 05/29/2018 17:19 (CDT) PHONE: AGE: 68 SSN# [id number] GENDER: Male ENCOUNTER PHYSICIAN: Dr. Mc Clarke M.D. ADMISSION DIAGNOSIS: - Debility 16 - Debility (16) SEPSIS, UTI, HYPERTENSION, DIABETES MELLITUS. EATING: Activity did not occur on this shift EATING - SCORE: 0-UNK GROOMING: Activity did not occur on this shift GROOMING - SCORE: 0-UNK BATHING: Activity did not occur on this shift BATHING - SCORE: 0-UNK DRESSING - UPPER BODY: Patient is not dressing in public clothing ARTICLES SCORE Total number of steps: 0 DRESSING - UPPER BODY - SCORE: 0-UNK DRESSING - LOWER BODY: Patient is not dressing in public clothing ARTICLES SCORE Total number of steps: 0 DRESSING - LOWER BODY - SCORE: 0-UNK TOILETING: Activity did not occur on this shift TOILETING - SCORE: 0-UNK BLADDER MANAGEMENT: Whipple removes incontinent device (Depends, pull ups, etc.); cleans the patient after accident / inco ntinent episode; and, applies new incontinent device. BLADDER MANAGEMENT - SCORE: 1-DEP BLADDER MANAGEMENT - FREQUENCY OF ACCIDENTS: BLADDER MANAGEMENT(FA) - STEP 1: How many accidents has the patient had during the current shift? 2 BOWEL MANAGEMENT: Activity did not occur on this shift BOWEL MANAGEMENT - SCORE: 7-IND TRANSFERS: BED, CHAIR, WHEELCHAIR: Activity did not occur on this shift TRANSFERS: BED, CHAIR, WHEELCHAIR - SCORE: 0-UNK TRANSFERS: TOILET: Activity did not occur on this shift TRANSFERS: TOILET - SCORE: 0-UNK TRANSFERS: SHOWER: Activity did not occur on this shift TRANSFERS: SHOWER - SCORE: 0-UNK TRANSFERS: TUB: Activity did not occur on this shift TRANSFERS: TUB - SCORE: 0-UNK LOCOMOTION: WALK: Activity did not occur on this shift LOCOMOTION: WALK - SCORE: 0-UNK LOCOMOTION: WHEELCHAIR: Activity did not occur on this shift LOCOMOTION: WHEELCHAIR - SCORE: 0-UNK COMPREHENSION: COMPREHENSION: TYPE: Both COMPREHENSION - STEP 1: Does the patient require help from a person or device, or need extra time to understand complex and a bstract ideas (such as current events, finances, discharge planning, medical issues, relationships, e tc)? Yes. COMPREHENSION - STEP 2: Does the patient require help to understand questions or statements about basic needs or ideas (such as hunger, thirst, sleep, safety, daily schedule, room location, or discomfort) half or more of the t mary? No. COMPREHENSION - STEP 3: How often does the patient need help to understand directions and conversation about basic needs? 10% - 24% of the time COMPREHENSION - SCORE: 4-MIN EXPRESSION EXPRESSION: TYPE: Both EXPRESSION - STEP 1: Does the patient require help from a person or device, or need extra time expressing complex and abst ract ideas (such as current events, finances, discharge planning, medical issues, relationships, etc) ? Yes. EXPRESSION - STEP 2: Does the patient require help to express basic necessities or ideas (such as hunger, thirst, sleep, s afety, daily schedule, room location, or discomfort) half or more of the time? No. EXPRESSION - STEP 3: How often does the patient need help to express directions and conversation about basic needs? 10-24% of the time EXPRESSION - SCORE: 4-MIN SOCIAL INTERACTION: SOCIAL INTERACTION - STEP 1: Does the patient require a helper to interact with others in social and therapeutic situations? Yes. SOCIAL INTERACTION - STEP 2: Does the patient interact appropriately half or more of the time? Yes. SOCIAL INTERACTION - STEP 3: How often does the patient need help to interact appropriately? 10-24% of the time SOCIAL INTERACTION - SCORE: 4-MIN PROBLEM SOLVING: PROBLEM SOLVING - STEP 1: Does the patient need help from a person or device, or need extra time to solve complex problems such as managing a checking account or confronting interpersonal problems? Yes. PROBLEM SOLVING - STEP 2: Does the patient solve basic routine problems half or more of the time? Yes. PROBLEM SOLVING - STEP 3: How often does the patient need help to solve basic routine problems? 10%-24% of the time PROBLEM SOLVING - SCORE: 4-MIN MEMORY: MEMORY - STEP 1: Does the patient need help from a person or device, or need extra time to remember frequently encount ered people, daily routines, and executing requests? Yes. MEMORY - STEP 2: How often does the patient need help to remember frequently encountered people, daily routines, and e xecuting requests? 10% - 24% of the time MEMORY - SCORE: 4-MIN
[2018-06-06] MEDS: METOPROLOL XL 25 MG TAB PO SCH ×2 (05:11→17:05)
[2018-06-06] MEDS: TRAMADOL HCL 50 MG TAB PO PRN ×3 (05:12→20:29)
[2018-06-06] MEDS ORDERED: HOME MED 1 EA UNK (Insulin Degludec [Tresiba] 50 UNITS) SQ SCH (08:00)
[2018-06-06] MEDS: EZETIMIBE 10 MG TAB PO SCH (08:11)
[2018-06-06] MEDS: CYANOCOBALAMIN 1,000 MCG TAB PO SCH (08:12)
[2018-06-06] MEDS: APIXABAN 2.5 MG TABLET PO SCH ×2 (08:12→20:29)
[2018-06-06] MEDS: CLOPIDOGREL 75 MG TABLET PO SCH (08:12)
[2018-06-06] MEDS: INSULIN -REGULAR HUMAN 50 UNIT/0.5 ML ML SQ SCH ×4 (08:12→20:15)
[2018-06-06] MEDS: ASPIRIN 81 MG CHEWABLE TABLET PO SCH (08:12)
[2018-06-06] MEDS: FOLIC ACID 1 MG TABLET PO SCH (08:18)
[2018-06-06] MEDS: IRBESARTAN 150 MG TAB PO SCH (08:18)
[2018-06-06] MEDS: FE SULF/FA/VIT B COMP & C TAB PO SCH (08:18)
[2018-06-06] MEDS: LIDOCAINE 5% PATCH TOP SCH (08:18)
[2018-06-06] MEDS: TOLTERODINE LA 4 MG CAP PO SCH (08:19)
[2018-06-06] MEDS: TRESIBA 50 UNIT SQ SCH (09:59)
[2018-06-06] MEDS: MAGNESIUM OXIDE 400 MG TAB PO SCH ×2 (09:59→20:29)
--- NOTE | 2018-06-06 10:00 | FAST ---
ENCOUNTER DATE AND TIME: 06/06/2018 08:00 (CDT) NAME YANICK COOPER DATE OF : 1950 DATE OF ADMISSION: 05/29/2018 17:19 (CDT) PHONE: AGE: 68 N# [id number] GENDER: Male ENCOUNTER PHYSICIAN: Dr. Mc Clarke M.D. ADMISSION DIAGNOSIS: - Debility 16 - Debility (16) SEPSIS, UTI, HYPERTENSION, DIABETES MELLITUS. EATING: Activity did not occur on this shift EATING - SCORE: 0-UNK GROOMING: Comb/brush hair Oral care GROOMING - STEP 1: Does the patient require the assistance of a person or device, or need extra time when grooming? Yes. GROOMING - STEP 2: Does the patient require the assistance of a helper? Yes. GROOMING - STEP 3: How much assistance does the patient require from the helper? Cuing, coaxing, instructions, or encour agement for completion of grooming GROOMING - SCORE: 5-SUP BATHING: Abdomen Buttocks Chest Left arm Left lower leg and foot Left upper leg Perineal area Right arm Right lower leg and foot Right upper leg BATHING - STEP 1: Does the patient require the assistance of a person or device, or need extra time when bathing? Yes. BATHING - STEP 2: Does the patient require the assistance of a helper? Yes. BATHING - STEP 3: How much assistance does the patient require from the helper? Only incidental help such as placement of a wash cloth in his/her hand a few times as s/he bathes OR help to bathe just one or two areas of the body BATHING - SCORE: 4-MIN DRESSING - UPPER BODY: T-shirt/pullover shirt (four steps) ARTICLES SCORE Total number of steps: 4 DRESSING - UPPER BODY - STEP 1: Does the patient require help from a person or device, or need extra time when dressing above the [address]? Yes. DRESSING - UPPER BODY - STEP 2: Does the patient require the assistance of a helper? Yes. DRESSING - UPPER BODY - STEP 3: Does the helper touch the patient while dressing? Yes. DRESSING - UPPER BODY - STEP 4: How many of the total steps does the patient complete on his/her own? 3 DRESSING - UPPER BODY - SCORE: 4-MIN DRESSING - LOWER BODY: Elastic waist pants (three steps) Underwear (three steps) ARTICLES SCORE Total number of steps: 6 DRESSING - LOWER BODY - STEP 1: Does the patient require help from a person or device, or need extra time when dressing below the [address]? Yes. DRESSING - LOWER BODY - STEP 2: Does the patient require the assistance of a helper? Yes. DRESSING - LOWER BODY - STEP 3: Does the helper touch the patient while dressing? Yes. DRESSING - LOWER BODY - STEP 4: How many of the total steps does the patient complete on his/her own? 2 DRESSING - LOWER BODY - STEP 5: Does patient require total assistance for dressing below the waist such as the helper holding clothin g and performing basically all the activities? No. DRESSING - LOWER BODY - SCORE: 2-MAX TOILETING: Activity did not occur on this shift TOILETING - SCORE: 0-UNK BLADDER MANAGEMENT: Activity did not occur on this shift BLADDER MANAGEMENT - SCORE: 7-IND BOWEL MANAGEMENT: Activity did not occur on this shift BOWEL MANAGEMENT - SCORE: 7-IND TRANSFERS: BED, CHAIR, WHEELCHAIR: TRANSFERS: BED, CHAIR, WHEELCHAIR - STEP 1: Does the patient require assistance of a person or device, or need extra time with bed, chair, or whe elchair transfers? Yes. TRANSFERS: BED, CHAIR, WHEELCHAIR - STEP 2: Does the patient require the assistance of a helper? Yes. TRANSFERS: BED, CHAIR, WHEELCHAIR - STEP 3: How much assistance does the patient require from the helper? Steadying/guiding assistance TRANSFERS: BED, CHAIR, WHEELCHAIR - SCORE: 4-MIN TRANSFERS: TOILET: Activity did not occur on this shift TRANSFERS: TOILET - SCORE: 0-UNK TRANSFERS: SHOWER: TRANSFERS: SHOWER - STEP 1: Does the patient require the assistance of a person or device, or need extra time with shower transfe rs? Yes. TRANSFERS: SHOWER - STEP 2: Does the patient require the assistance of a helper? Yes. TRANSFERS: SHOWER - STEP 3: How much assistance does the patient require from the helper? Only incidental help such as contact gu arding or steadying during shower transfers, or help to lift one leg into the shower TRANSFERS: SHOWER - SCORE: 4-MIN TRANSFERS: TUB: Activity did not occur on this shift TRANSFERS: TUB - SCORE: 0-UNK LOCOMOTION: WALK: Activity did not occur on this shift LOCOMOTION: WALK - SCORE: 0-UNK LOCOMOTION: WHEELCHAIR: Activity did not occur on this shift LOCOMOTION: WHEELCHAIR - SCORE: 0-UNK LOCOMOTION: STAIRS: Activity did not occur on this shift LOCOMOTION: STAIRS - SCORE: 0-UNK COMPREHENSION: COMPREHENSION: TYPE: Both COMPREHENSION - STEP 1: Does the patient require help from a person or device, or need extra time to understand complex and a bstract ideas (such as current events, finances, discharge planning, medical issues, relationships, e tc)? Yes. COMPREHENSION - STEP 2: Does the patient require help to understand questions or statements about basic needs or ideas (such as hunger, thirst, sleep, safety, daily schedule, room location, or discomfort) half or more of the t mary? No. COMPREHENSION - STEP 3: How often does the patient need help to understand directions and conversation about basic needs? Les s than 10% of the time COMPREHENSION - SCORE: 5-SUP EXPRESSION EXPRESSION: TYPE: Both EXPRESSION - STEP 1: Does the patient require help from a person or device, or need extra time expressing complex and abst ract ideas (such as current events, finances, discharge planning, medical issues, relationships, etc) ? Yes. EXPRESSION - STEP 2: Does the patient require help to express basic necessities or ideas (such as hunger, thirst, sleep, s afety, daily schedule, room location, or discomfort) half or more of the time? No. EXPRESSION - STEP 3: How often does the patient need help to express directions and conversation about basic needs? Less t story 10% of the time EXPRESSION - SCORE: 5-SUP SOCIAL INTERACTION: SOCIAL INTERACTION - STEP 1: Does the patient require a helper to interact with others in social and therapeutic situations? Yes. SOCIAL INTERACTION - STEP 2: Does the patient interact appropriately half or more of the time? Yes. SOCIAL INTERACTION - STEP 3: How often does the patient need help to interact appropriately? Less than 10% of the time SOCIAL INTERACTION - SCORE: 5-SUP PROBLEM SOLVING: PROBLEM SOLVING - STEP 1: Does the patient need help from a person or device, or need extra time to solve complex problems such as managing a checking account or confronting interpersonal problems? Yes. PROBLEM SOLVING - STEP 2: Does the patient solve basic routine problems half or more of the time? Yes. PROBLEM SOLVING - STEP 3: How often does the patient need help to solve basic routine problems? 10%-24% of the time PROBLEM SOLVING - SCORE: 4-MIN MEMORY: MEMORY - STEP 1: Does the patient need help from a person or device, or need extra time to remember frequently encount ered people, daily routines, and executing requests? Yes. MEMORY - STEP 2: How often does the patient need help to remember frequently encountered people, daily routines, and e xecuting requests? 25% - 49% of the time MEMORY - SCORE: 3-MOD SIGNATURE PANEL: The following modified sections: Eating - Score, Grooming - Score, Bathing - Score, Dressing - Upper Body - Score, Dressing - Lower Body - Score, Toileting - Score, Transfers: Bed, Chair, Wheelchair - S core, Transfers: Toilet - Score, Transfers: Shower - Score, Transfers: Tub - Score, Comprehension - S core, Expression - Score, Social Interaction - Score, Problem Solving - Score, Memory - Score were [e lectronically] signed by LAVELL Angel on Sat Jun 06 2018 10:00:14 [facility] ([facility]
--- NOTE | 2018-06-06 15:13 | FAST ---
SHIFT START DATE/TIME: 06/06/2018 07:00 (CDT) SHIFT END DATE/TIME: 06/06/2018 19:00 (CDT) NAME YANICK COOPER DATE OF : 1950 DATE OF ADMISSION: 05/29/2018 17:19 (CDT) PHONE: AGE: 68 N# [id number] GENDER: Male ENCOUNTER PHYSICIAN: Dr. Mc Clarke M.D. ADMISSION DIAGNOSIS: - Debility 16 - Debility (16) SEPSIS, UTI, HYPERTENSION, DIABETES MELLITUS. EATING: EATING - STEP 1: Does the patient require the assistance of a person or device, or need extra time when eating? Yes. EATING - STEP 2: Does the patient require the assistance of a helper? Yes. EATING - STEP 3: Does the patient perform half or more of the eating tasks? Yes. EATING - STEP 4: Does the patient need only supervision, cuing, coaxing OR help to apply an orthosis OR help to cut fo od, open containers, pour liquids, or butter bread? Yes. EATING - SCORE: 5-SUP GROOMING: Comb/brush hair Wash, rinse, and dry face Wash, rinse, and dry hands GROOMING - STEP 1: Does the patient require the assistance of a person or device, or need extra time when grooming? Yes. GROOMING - STEP 2: Does the patient require the assistance of a helper? Yes. GROOMING - STEP 3: How much assistance does the patient require from the helper? Cuing, coaxing, instructions, or encour agement for completion of grooming GROOMING - SCORE: 5-SUP BATHING: Activity did not occur on this shift BATHING - SCORE: 0-UNK DRESSING - UPPER BODY: Button down shirt or blouse - NOT tucked in (four steps) ARTICLES SCORE Total number of steps: 4 DRESSING - UPPER BODY - STEP 1: Does the patient require help from a person or device, or need extra time when dressing above the [address]? Yes. DRESSING - UPPER BODY - STEP 2: Does the patient require the assistance of a helper? Yes. DRESSING - UPPER BODY - STEP 3: Does the helper touch the patient while dressing? Yes. DRESSING - UPPER BODY - STEP 4: How many of the total steps does the patient complete on his/her own? 3 DRESSING - UPPER BODY - SCORE: 4-MIN DRESSING - LOWER BODY: Elastic waist pants (three steps) Tied or buckled shoe - Left foot (two steps) Tied or buckled shoe - Right foot (two steps) ARTICLES SCORE Total number of steps: 7 DRESSING - LOWER BODY - STEP 1: Does the patient require help from a person or device, or need extra time when dressing below the [address]? Yes. DRESSING - LOWER BODY - STEP 2: Does the patient require the assistance of a helper? Yes. DRESSING - LOWER BODY - STEP 3: Does the helper touch the patient while dressing? Yes. DRESSING - LOWER BODY - STEP 4: How many of the total steps does the patient complete on his/her own? 2 DRESSING - LOWER BODY - STEP 5: Does patient require total assistance for dressing below the waist such as the helper holding clothin g and performing basically all the activities? No. DRESSING - LOWER BODY - SCORE: 2-MAX TOILETING: TOILETING - STEP 1: Does the patient require the assistance of a person or device, or need extra time with toileting? Yes . TOILETING - STEP 2: Does the patient require the assistance of a helper? Yes. TOILETING - STEP 3: How much assistance does the patient require from the helper? Hands-on assistance from the helper TOILETING - STEP 4: Of the 3 tasks: 1) Adjusting clothing prior to use, 2) Cleansing of perineal area, 3) Adjusting clot margaret after use; How many tasks does the patient perform WITHOUT assistance of the helper? Two tasks TOILETING - SCORE: 3-MOD BLADDER MANAGEMENT: Hadley removes incontinent device (Depends, pull ups, etc.); cleans the patient after accident / inco ntinent episode; and, applies new incontinent device. BLADDER MANAGEMENT - SCORE: 1-DEP BLADDER MANAGEMENT - FREQUENCY OF ACCIDENTS: BLADDER MANAGEMENT(FA) - STEP 1: How many accidents has the patient had during the current shift? 0 BOWEL MANAGEMENT: BOWEL MANAGEMENT - STEP 1: Does the patient control bowels completely and intentionally without equipment devices or medications AND is always continent? No. BOWEL MANAGEMENT - STEP 2: Does the patient require the assistance of a helper? No, patient requires medication for control such as stool softeners, suppositories, laxatives, enemas, or OTC medications BOWEL MANAGEMENT - SCORE: 6-ILA BOWEL MANAGEMENT - FREQUENCY OF ACCIDENTS: BOWEL MANAGEMENT(FA) - STEP 1: How many accidents has the patient had during the current shift? 0 TRANSFERS: BED, CHAIR, WHEELCHAIR: TRANSFERS: BED, CHAIR, WHEELCHAIR - STEP 1: Does the patient require assistance of a person or device, or need extra time with bed, chair, or whe elchair transfers? Yes. TRANSFERS: BED, CHAIR, WHEELCHAIR - STEP 2: Does the patient require the assistance of a helper? Yes. TRANSFERS: BED, CHAIR, WHEELCHAIR - STEP 3: How much assistance does the patient require from the helper? Steadying/guiding assistance TRANSFERS: BED, CHAIR, WHEELCHAIR - SCORE: 4-MIN TRANSFERS: TOILET: TRANSFERS: TOILET - STEP 1: Does the patient require the assistance of a person or device, or need extra time with toilet transfe rs? Yes. TRANSFERS: TOILET - STEP 2: Does the patient require the assistance of a helper? Yes. TRANSFERS: TOILET - STEP 3: How much assistance does the patient require from the helper? Patient performs half or more of the tr ansferring tasks TRANSFERS: TOILET - STEP 4: Does the patient need only incidental help such as contact guard or steadying during toilet transfer? No. Patient needs more than incidental help TRANSFERS: TOILET - SCORE: 3-MOD TRANSFERS: SHOWER: Activity did not occur on this shift TRANSFERS: SHOWER - SCORE: 0-UNK TRANSFERS: TUB: Activity did not occur on this shift TRANSFERS: TUB - SCORE: 0-UNK LOCOMOTION: WALK: Activity did not occur on this shift LOCOMOTION: WALK - SCORE: 0-UNK LOCOMOTION: WHEELCHAIR: Activity did not occur on this shift LOCOMOTION: WHEELCHAIR - SCORE: 0-UNK COMPREHENSION: COMPREHENSION: TYPE: Both COMPREHENSION - STEP 1: Does the patient require help from a person or device, or need extra time to understand complex and a bstract ideas (such as current events, finances, discharge planning, medical issues, relationships, e tc)? Yes. COMPREHENSION - STEP 2: Does the patient require help to understand questions or statements about basic needs or ideas (such as hunger, thirst, sleep, safety, daily schedule, room location, or discomfort) half or more of the t mary? No. COMPREHENSION - STEP 3: How often does the patient need help to understand directions and conversation about basic needs? 10% - 24% of the time COMPREHENSION - SCORE: 4-MIN EXPRESSION EXPRESSION: TYPE: Both EXPRESSION - STEP 1: Does the patient require help from a person or device, or need extra time expressing complex and abst ract ideas (such as current events, finances, discharge planning, medical issues, relationships, etc) ? Yes. EXPRESSION - STEP 2: Does the patient require help to express basic necessities or ideas (such as hunger, thirst, sleep, s afety, daily schedule, room location, or discomfort) half or more of the time? No. EXPRESSION - STEP 3: How often does the patient need help to express directions and conversation about basic needs? Less t story 10% of the time EXPRESSION - SCORE: 5-SUP SOCIAL INTERACTION: SOCIAL INTERACTION - STEP 1: Does the patient require a helper to interact with others in social and therapeutic situations? Yes. SOCIAL INTERACTION - STEP 2: Does the patient interact appropriately half or more of the time? Yes. SOCIAL INTERACTION - STEP 3: How often does the patient need help to interact appropriately? Less than 10% of the time SOCIAL INTERACTION - SCORE: 5-SUP PROBLEM SOLVING: PROBLEM SOLVING - STEP 1: Does the patient need help from a person or device, or need extra time to solve complex problems such as managing a checking account or confronting interpersonal problems? Yes. PROBLEM SOLVING - STEP 2: Does the patient solve basic routine problems half or more of the time? Yes. PROBLEM SOLVING - STEP 3: How often does the patient need help to solve basic routine problems? 10%-24% of the time PROBLEM SOLVING - SCORE: 4-MIN MEMORY: MEMORY - STEP 1: Does the patient need help from a person or device, or need extra time to remember frequently encount ered people, daily routines, and executing requests? Yes. MEMORY - STEP 2: How often does the patient need help to remember frequently encountered people, daily routines, and e xecuting requests? 10% - 24% of the time MEMORY - SCORE: 4-MIN SIGNATURE PANEL: The following modified sections: Eating - Score, Grooming - Score, Bathing - Score, Dressing - Upper Body - Score, Dressing - Lower Body - Score, Toileting - Score, Bladder Management - Score, Bowel Man agement - Score, Transfers: Bed, Chair, Wheelchair - Score, Transfers: Toilet - Score, Transfers: Lisa wer - Score, Transfers: Tub - Score, Locomotion: Walk - Score, Locomotion: Wheelchair - Score, Compre hension - Score, Expression - Score, Social Interaction - Score, Problem Solving - Score, Memory - Sc ore were [electronically] signed by Shamika Luis C.N.A. on Sat Jun 06 2018 15:12:49 T-0500 (Centra [place] Daylight Time)
[2018-06-06] MEDS: DOCUSATE NA/SENNA CONC 1 TAB PO SCH (20:29)
[2018-06-06] MEDS: MELATONIN 3 MG TABLET PO PRN (20:29)
[2018-06-06] MEDS: ROSUVASTATIN 10 MG TAB PO SCH (20:29)
--- NOTE | 2018-06-07 01:18 | FAST ---
SHIFT START DATE/TIME: 06/06/2018 19:00 (CDT) SHIFT END DATE/TIME: 06/07/2018 07:00 (CDT) NAME YANICK COOPER DATE OF : 1950 DATE OF ADMISSION: 05/29/2018 17:19 (CDT) PHONE: AGE: 68 SSN# [id number] GENDER: Male ENCOUNTER PHYSICIAN: Dr. Mc Clarke M.D. ADMISSION DIAGNOSIS: - Debility 16 - Debility (16) SEPSIS, UTI, HYPERTENSION, DIABETES MELLITUS. EATING: Activity did not occur on this shift EATING - SCORE: 0-UNK GROOMING: Activity did not occur on this shift GROOMING - SCORE: 0-UNK BATHING: Activity did not occur on this shift BATHING - SCORE: 0-UNK DRESSING - UPPER BODY: Patient is not dressing in public clothing ARTICLES SCORE Total number of steps: 0 DRESSING - UPPER BODY - SCORE: 0-UNK DRESSING - LOWER BODY: Patient is not dressing in public clothing ARTICLES SCORE Total number of steps: 0 DRESSING - LOWER BODY - SCORE: 0-UNK TOILETING: Activity did not occur on this shift TOILETING - SCORE: 0-UNK BLADDER MANAGEMENT: Mullan removes incontinent device (Depends, pull ups, etc.); cleans the patient after accident / inco ntinent episode; and, applies new incontinent device. BLADDER MANAGEMENT - SCORE: 1-DEP BLADDER MANAGEMENT - FREQUENCY OF ACCIDENTS: BLADDER MANAGEMENT(FA) - STEP 1: How many accidents has the patient had during the current shift? 2 BOWEL MANAGEMENT: Activity did not occur on this shift BOWEL MANAGEMENT - SCORE: 7-IND TRANSFERS: BED, CHAIR, WHEELCHAIR: TRANSFERS: BED, CHAIR, WHEELCHAIR - STEP 1: Does the patient require assistance of a person or device, or need extra time with bed, chair, or whe elchair transfers? Yes. TRANSFERS: BED, CHAIR, WHEELCHAIR - STEP 2: Does the patient require the assistance of a helper? Yes. TRANSFERS: BED, CHAIR, WHEELCHAIR - STEP 3: How much assistance does the patient require from the helper? Lifting of the patient TRANSFERS: BED, CHAIR, WHEELCHAIR - STEP 4: Does the helper lift the patient ONLY up? ONLY down? Up AND Down? Patient needs help with all lifting TRANSFERS: BED, CHAIR, WHEELCHAIR - SCORE: 1-DEP TRANSFERS: TOILET: TRANSFERS: TOILET - STEP 1: Does the patient require the assistance of a person or device, or need extra time with toilet transfe rs? Yes. TRANSFERS: TOILET - STEP 2: Does the patient require the assistance of a helper? Yes. TRANSFERS: TOILET - STEP 3: How much assistance does the patient require from the helper? Patient performs less than half of the transferring tasks TRANSFERS: TOILET - STEP 4: Does the patient require total assistance for the toilet transfer such as the helper doing basically all the lifting? Yes. TRANSFERS: TOILET - SCORE: 1-DEP TRANSFERS: SHOWER: Activity did not occur on this shift TRANSFERS: SHOWER - SCORE: 0-UNK TRANSFERS: TUB: Activity did not occur on this shift TRANSFERS: TUB - SCORE: 0-UNK LOCOMOTION: WALK: Activity did not occur on this shift LOCOMOTION: WALK - SCORE: 0-UNK LOCOMOTION: WHEELCHAIR: Activity did not occur on this shift LOCOMOTION: WHEELCHAIR - SCORE: 0-UNK COMPREHENSION: COMPREHENSION: TYPE: Both COMPREHENSION - STEP 1: Does the patient require help from a person or device, or need extra time to understand complex and a bstract ideas (such as current events, finances, discharge planning, medical issues, relationships, e tc)? Yes. COMPREHENSION - STEP 2: Does the patient require help to understand questions or statements about basic needs or ideas (such as hunger, thirst, sleep, safety, daily schedule, room location, or discomfort) half or more of the t mary? No. COMPREHENSION - STEP 3: How often does the patient need help to understand directions and conversation about basic needs? 10% - 24% of the time COMPREHENSION - SCORE: 4-MIN EXPRESSION EXPRESSION: TYPE: Both EXPRESSION - STEP 1: Does the patient require help from a person or device, or need extra time expressing complex and abst ract ideas (such as current events, finances, discharge planning, medical issues, relationships, etc) ? No. EXPRESSION - STEP 2: Does the patient need extra time, require an assistive device (such as augmentive communication syste m or a communication board), OR does s/he have mild difficulty expressing complex and abstract ideas (including mild dysarthria or mild word-find problems)? Yes. EXPRESSION - SCORE: 6-ILA SOCIAL INTERACTION: SOCIAL INTERACTION - STEP 1: Does the patient require a helper to interact with others in social and therapeutic situations? No. SOCIAL INTERACTION - STEP 2: Does the patient need extra time in social situations, OR does s/he interact with staff, other patien ts, and family members ONLY in structured environments, OR does s/he require medication for social in teraction? Yes, patient needs extra time SOCIAL INTERACTION - SCORE: 6-ILA PROBLEM SOLVING: PROBLEM SOLVING - STEP 1: Does the patient need help from a person or device, or need extra time to solve complex problems such as managing a checking account or confronting interpersonal problems? Yes. PROBLEM SOLVING - STEP 2: Does the patient solve basic routine problems half or more of the time? Yes. PROBLEM SOLVING - STEP 3: How often does the patient need help to solve basic routine problems? 25%-49% of the time PROBLEM SOLVING - SCORE: 3-MOD MEMORY: MEMORY - STEP 1: Does the patient need help from a person or device, or need extra time to remember frequently encount ered people, daily routines, and executing requests? No. MEMORY - STEP 2: Does the patient have slight difficulty recognizing frequently encountered people, daily routines, or executing requests without the need for repetition or using self-initiated or environmental cues to remember? Yes. MEMORY - SCORE: 6-ILA SIGNATURE PANEL: The following modified sections: Eating - Score, Grooming - Score, Dressing - Upper Body - Score, Harsha ssing - Lower Body - Score, Toileting - Score, Bladder Management - Score, Bowel Management - Score, Transfers: Bed, Chair, Wheelchair - Score, Transfers: Toilet - Score, Transfers: Shower - Score, Oakes sfers: Tub - Score, Locomotion: Walk - Score, Locomotion: Wheelchair - Score, Comprehension - Score, Expression - Score, Social Interaction - Score, Problem Solving - Score, Memory - Score were [electro nically] signed by Leticia Ya CNA on FriJun 07 2018 01:17:45 GMT-0500 (Central Daylight Time)
[2018-06-07] MEDS: TRAMADOL HCL 50 MG TAB PO PRN ×2 (04:51→13:26)
[2018-06-07] MEDS: METOPROLOL XL 25 MG TAB PO SCH ×2 (05:00→16:59)
[2018-06-07] MEDS: INSULIN -REGULAR HUMAN 50 UNIT/0.5 ML ML SQ SCH ×4 (07:27→21:05)
[2018-06-07] MEDS: LIDOCAINE 5% PATCH TOP SCH (08:53)
[2018-06-07] MEDS: FOLIC ACID 1 MG TABLET PO SCH (08:54)
[2018-06-07] MEDS: MAGNESIUM OXIDE 400 MG TAB PO SCH ×2 (08:54→20:46)
[2018-06-07] MEDS: ASPIRIN 81 MG CHEWABLE TABLET PO SCH (08:54)
[2018-06-07] MEDS: APIXABAN 2.5 MG TABLET PO SCH ×2 (08:54→20:46)
[2018-06-07] MEDS: IRBESARTAN 150 MG TAB PO SCH (08:54)
[2018-06-07] MEDS: EZETIMIBE 10 MG TAB PO SCH (08:54)
[2018-06-07] MEDS: CYANOCOBALAMIN 1,000 MCG TAB PO SCH (08:55)
[2018-06-07] MEDS: CLOPIDOGREL 75 MG TABLET PO SCH (08:55)
[2018-06-07] MEDS: FE SULF/FA/VIT B COMP & C TAB PO SCH (08:55)
[2018-06-07] MEDS: TOLTERODINE LA 4 MG CAP PO SCH (08:56)
--- NOTE | 2018-06-07 16:23 | FAST ---
SHIFT START DATE/TIME: 06/07/2018 07:00 (CDT) SHIFT END DATE/TIME: 06/07/2018 19:00 (CDT) NAME YANICK COOPER DATE OF : 1950 DATE OF ADMISSION: 05/29/2018 17:19 (CDT) PHONE: AGE: 68 N# [id number] GENDER: Male ENCOUNTER PHYSICIAN: Dr. Mc Clarke M.D. ADMISSION DIAGNOSIS: - Debility 16 - Debility (16) SEPSIS, UTI, HYPERTENSION, DIABETES MELLITUS. EATING: EATING - STEP 1: Does the patient require the assistance of a person or device, or need extra time when eating? Yes. EATING - STEP 2: Does the patient require the assistance of a helper? Yes. EATING - STEP 3: Does the patient perform half or more of the eating tasks? Yes. EATING - STEP 4: Does the patient need only supervision, cuing, coaxing OR help to apply an orthosis OR help to cut fo od, open containers, pour liquids, or butter bread? Yes. EATING - SCORE: 5-SUP GROOMING: Comb/brush hair Wash, rinse, and dry face Wash, rinse, and dry hands GROOMING - STEP 1: Does the patient require the assistance of a person or device, or need extra time when grooming? Yes. GROOMING - STEP 2: Does the patient require the assistance of a helper? Yes. GROOMING - STEP 3: How much assistance does the patient require from the helper? Cuing, coaxing, instructions, or encour agement for completion of grooming GROOMING - SCORE: 5-SUP BATHING: Activity did not occur on this shift BATHING - SCORE: 0-UNK DRESSING - UPPER BODY: Activity did not occur on this shift ARTICLES SCORE Total number of steps: 0 DRESSING - UPPER BODY - SCORE: 0-UNK DRESSING - LOWER BODY: Activity did not occur on this shift ARTICLES SCORE Total number of steps: 0 DRESSING - LOWER BODY - SCORE: 0-UNK TOILETING: TOILETING - STEP 1: Does the patient require the assistance of a person or device, or need extra time with toileting? Yes . TOILETING - STEP 2: Does the patient require the assistance of a helper? Yes. TOILETING - STEP 3: How much assistance does the patient require from the helper? Hands-on assistance from the helper TOILETING - STEP 4: Of the 3 tasks: 1) Adjusting clothing prior to use, 2) Cleansing of perineal area, 3) Adjusting clot margaret after use; How many tasks does the patient perform WITHOUT assistance of the helper? Two tasks TOILETING - SCORE: 3-MOD BLADDER MANAGEMENT: BLADDER MANAGEMENT - STEP 1: Does the patient control the bladder completely and intentionally without equipment or devices or med ications, and is always continent? No. BLADDER MANAGEMENT - STEP 2: Does the patient require the assistance of a helper? Yes. BLADDER MANAGEMENT - STEP 3: How much assistance does the patient require from the helper? Only set-up of equipment - such as plac ing it within reach of the patient or emptying a device - to maintain either satisfactory voiding pat tern or managing an external device, such as an absorbent pad, ileal device, or catheter BLADDER MANAGEMENT - SCORE: 5-SUP BLADDER MANAGEMENT - FREQUENCY OF ACCIDENTS: BLADDER MANAGEMENT(FA) - STEP 1: How many accidents has the patient had during the current shift? 0 BOWEL MANAGEMENT: Activity did not occur on this shift BOWEL MANAGEMENT - SCORE: 7-IND BOWEL MANAGEMENT - FREQUENCY OF ACCIDENTS: BOWEL MANAGEMENT(FA) - STEP 1: How many accidents has the patient had during the current shift? 0 TRANSFERS: BED, CHAIR, WHEELCHAIR: Activity did not occur on this shift TRANSFERS: BED, CHAIR, WHEELCHAIR - SCORE: 0-UNK TRANSFERS: TOILET: Activity did not occur on this shift TRANSFERS: TOILET - SCORE: 0-UNK TRANSFERS: SHOWER: Activity did not occur on this shift TRANSFERS: SHOWER - SCORE: 0-UNK TRANSFERS: TUB: Activity did not occur on this shift TRANSFERS: TUB - SCORE: 0-UNK LOCOMOTION: WALK: Activity did not occur on this shift LOCOMOTION: WALK - SCORE: 0-UNK LOCOMOTION: WHEELCHAIR: Activity did not occur on this shift LOCOMOTION: WHEELCHAIR - SCORE: 0-UNK COMPREHENSION: COMPREHENSION: TYPE: Both COMPREHENSION - STEP 1: Does the patient require help from a person or device, or need extra time to understand complex and a bstract ideas (such as current events, finances, discharge planning, medical issues, relationships, e tc)? Yes. COMPREHENSION - STEP 2: Does the patient require help to understand questions or statements about basic needs or ideas (such as hunger, thirst, sleep, safety, daily schedule, room location, or discomfort) half or more of the t mary? No. COMPREHENSION - STEP 3: How often does the patient need help to understand directions and conversation about basic needs? 10% - 24% of the time COMPREHENSION - SCORE: 4-MIN EXPRESSION EXPRESSION: TYPE: Both EXPRESSION - STEP 1: Does the patient require help from a person or device, or need extra time expressing complex and abst ract ideas (such as current events, finances, discharge planning, medical issues, relationships, etc) ? Yes. EXPRESSION - STEP 2: Does the patient require help to express basic necessities or ideas (such as hunger, thirst, sleep, s afety, daily schedule, room location, or discomfort) half or more of the time? No. EXPRESSION - STEP 3: How often does the patient need help to express directions and conversation about basic needs? Less t story 10% of the time EXPRESSION - SCORE: 5-SUP SOCIAL INTERACTION: SOCIAL INTERACTION - STEP 1: Does the patient require a helper to interact with others in social and therapeutic situations? Yes. SOCIAL INTERACTION - STEP 2: Does the patient interact appropriately half or more of the time? Yes. SOCIAL INTERACTION - STEP 3: How often does the patient need help to interact appropriately? Less than 10% of the time SOCIAL INTERACTION - SCORE: 5-SUP PROBLEM SOLVING: PROBLEM SOLVING - STEP 1: Does the patient need help from a person or device, or need extra time to solve complex problems such as managing a checking account or confronting interpersonal problems? Yes. PROBLEM SOLVING - STEP 2: Does the patient solve basic routine problems half or more of the time? Yes. PROBLEM SOLVING - STEP 3: How often does the patient need help to solve basic routine problems? 10%-24% of the time PROBLEM SOLVING - SCORE: 4-MIN MEMORY: MEMORY - STEP 1: Does the patient need help from a person or device, or need extra time to remember frequently encount ered people, daily routines, and executing requests? Yes. MEMORY - STEP 2: How often does the patient need help to remember frequently encountered people, daily routines, and e xecuting requests? 10% - 24% of the time MEMORY - SCORE: 4-MIN SIGNATURE PANEL: The following modified sections: Eating - Score, Grooming - Score, Bathing - Score, Dressing - Upper Body - Score, Dressing - Lower Body - Score, Toileting - Score, Bladder Management - Score, Bowel Man agement - Score, Transfers: Bed, Chair, Wheelchair - Score, Transfers: Toilet - Score, Transfers: Lisa wer - Score, Transfers: Tub - Score, Locomotion: Walk - Score, Locomotion: Wheelchair - Score, Compre hension - Score, Expression - Score, Social Interaction - Score, Problem Solving - Score, Memory - Sc ore were [electronically] signed by Shamika Luis C.N.A. on FriJun 07 2018 16:22:49 T-0500 (Centra l Daylight Time)
[2018-06-07] MEDS: ROSUVASTATIN 10 MG TAB PO SCH (20:45)
[2018-06-07] MEDS: MELATONIN 3 MG TABLET PO PRN (20:46)
[2018-06-07] MEDS: DOCUSATE NA/SENNA CONC 1 TAB PO SCH (20:46)
[2018-06-07] MEDS: TRESIBA 50 UNIT SQ SCH (20:46)
[2018-06-07] MEDS: AMITRIPTYLINE 25 MG TAB PO SCH (20:46)
[2018-06-07] MEDS ORDERED: INSULIN -REGULAR HUMAN 50 UNIT/0.5 ML ML ONE (21:14)
--- NOTE | 2018-06-08 00:25 | FAST ---
SHIFT START DATE/TIME: 06/07/2018 19:00 (CDT) SHIFT END DATE/TIME: 06/08/2018 07:00 (CDT) NAME YANICK COOPER DATE OF : 1950 DATE OF ADMISSION: 05/29/2018 17:19 (CDT) PHONE: AGE: 68 SSN# [id number] GENDER: Male ENCOUNTER PHYSICIAN: Dr. Mc Clarke M.D. ADMISSION DIAGNOSIS: - Debility 16 - Debility (16) SEPSIS, UTI, HYPERTENSION, DIABETES MELLITUS. EATING: Activity did not occur on this shift EATING - SCORE: 0-UNK GROOMING: Activity did not occur on this shift GROOMING - SCORE: 0-UNK BATHING: Activity did not occur on this shift BATHING - SCORE: 0-UNK DRESSING - UPPER BODY: Patient is not dressing in public clothing ARTICLES SCORE Total number of steps: 0 DRESSING - UPPER BODY - SCORE: 0-UNK DRESSING - LOWER BODY: Patient is not dressing in public clothing ARTICLES SCORE Total number of steps: 0 DRESSING - LOWER BODY - SCORE: 0-UNK TOILETING: Activity did not occur on this shift TOILETING - SCORE: 0-UNK BLADDER MANAGEMENT: [place] removes incontinent device (Depends, pull ups, etc.); cleans the patient after accident / inco ntinent episode; and, applies new incontinent device. BLADDER MANAGEMENT - SCORE: 1-DEP BLADDER MANAGEMENT - FREQUENCY OF ACCIDENTS: BLADDER MANAGEMENT(FA) - STEP 1: How many accidents has the patient had during the current shift? 2 BOWEL MANAGEMENT: Activity did not occur on this shift BOWEL MANAGEMENT - SCORE: 7-IND TRANSFERS: BED, CHAIR, WHEELCHAIR: Activity did not occur on this shift TRANSFERS: BED, CHAIR, WHEELCHAIR - SCORE: 0-UNK TRANSFERS: TOILET: Activity did not occur on this shift TRANSFERS: TOILET - SCORE: 0-UNK TRANSFERS: SHOWER: Activity did not occur on this shift TRANSFERS: SHOWER - SCORE: 0-UNK TRANSFERS: TUB: Activity did not occur on this shift TRANSFERS: TUB - SCORE: 0-UNK LOCOMOTION: WALK: Activity did not occur on this shift LOCOMOTION: WALK - SCORE: 0-UNK LOCOMOTION: WHEELCHAIR: Activity did not occur on this shift LOCOMOTION: WHEELCHAIR - SCORE: 0-UNK COMPREHENSION: COMPREHENSION: TYPE: Both COMPREHENSION - STEP 1: Does the patient require help from a person or device, or need extra time to understand complex and a bstract ideas (such as current events, finances, discharge planning, medical issues, relationships, e tc)? Yes. COMPREHENSION - STEP 2: Does the patient require help to understand questions or statements about basic needs or ideas (such as hunger, thirst, sleep, safety, daily schedule, room location, or discomfort) half or more of the t mary? No. COMPREHENSION - STEP 3: How often does the patient need help to understand directions and conversation about basic needs? 25% - 49% of the time COMPREHENSION - SCORE: 3-MOD EXPRESSION EXPRESSION: TYPE: Both EXPRESSION - STEP 1: Does the patient require help from a person or device, or need extra time expressing complex and abst ract ideas (such as current events, finances, discharge planning, medical issues, relationships, etc) ? No. EXPRESSION - STEP 2: Does the patient need extra time, require an assistive device (such as augmentive communication syste m or a communication board), OR does s/he have mild difficulty expressing complex and abstract ideas (including mild dysarthria or mild word-find problems)? Yes. EXPRESSION - SCORE: 6-ILA SOCIAL INTERACTION: SOCIAL INTERACTION - STEP 1: Does the patient require a helper to interact with others in social and therapeutic situations? No. SOCIAL INTERACTION - STEP 2: Does the patient need extra time in social situations, OR does s/he interact with staff, other patien ts, and family members ONLY in structured environments, OR does s/he require medication for social in teraction? Yes, patient requires medication for social interaction SOCIAL INTERACTION - SCORE: 6-ILA PROBLEM SOLVING: PROBLEM SOLVING - STEP 1: Does the patient need help from a person or device, or need extra time to solve complex problems such as managing a checking account or confronting interpersonal problems? Yes. PROBLEM SOLVING - STEP 2: Does the patient solve basic routine problems half or more of the time? Yes. PROBLEM SOLVING - STEP 3: How often does the patient need help to solve basic routine problems? 25%-49% of the time PROBLEM SOLVING - SCORE: 3-MOD MEMORY: MEMORY - STEP 1: Does the patient need help from a person or device, or need extra time to remember frequently encount ered people, daily routines, and executing requests? Yes. MEMORY - STEP 2: How often does the patient need help to remember frequently encountered people, daily routines, and e xecuting requests? 25% - 49% of the time MEMORY - SCORE: 3-MOD SIGNATURE PANEL: The following modified sections: Eating - Score, Grooming - Score, Dressing - Upper Body - Score, Harsha ssing - Lower Body - Score, Toileting - Score, Bladder Management - Score, Bowel Management - Score, Transfers: Bed, Chair, Wheelchair - Score, Transfers: Toilet - Score, Transfers: Shower - Score, [place] sfers: Tub - Score, Locomotion: Walk - Score, Locomotion: Wheelchair - Score, Comprehension - Score, Expression - Score, Social Interaction - Score, Problem Solving - Score, Memory - Score were [electro nically] signed by Leticia Ya CNA on FriJun 08 2018 00:25:23 GMT-0500 (Central Daylight Time)
[2018-06-08] MEDS: METOPROLOL XL 25 MG TAB PO SCH ×2 (05:12→17:25)
[2018-06-08] MEDS: INSULIN -REGULAR HUMAN 50 UNIT/0.5 ML ML SQ SCH ×4 (06:54→20:54)
[2018-06-08] MEDS: LIDOCAINE 5% PATCH TOP SCH (07:15)
[2018-06-08] MEDS: TOLTERODINE LA 4 MG CAP PO SCH (07:15)
[2018-06-08] MEDS: APIXABAN 2.5 MG TABLET PO SCH ×2 (07:16→19:11)
[2018-06-08] MEDS: ASPIRIN 81 MG CHEWABLE TABLET PO SCH (07:16)
[2018-06-08] MEDS: FOLIC ACID 1 MG TABLET PO SCH (07:16)
[2018-06-08] MEDS: CYANOCOBALAMIN 1,000 MCG TAB PO SCH (07:16)
[2018-06-08] MEDS: FE SULF/FA/VIT B COMP & C TAB PO SCH (07:16)
[2018-06-08] MEDS: CLOPIDOGREL 75 MG TABLET PO SCH (07:16)
[2018-06-08] MEDS: MAGNESIUM OXIDE 400 MG TAB PO SCH ×2 (07:16→19:11)
[2018-06-08] MEDS: EZETIMIBE 10 MG TAB PO SCH (07:16)
[2018-06-08] MEDS: IRBESARTAN 150 MG TAB PO SCH (07:17)
[2018-06-08] MEDS: TRAMADOL HCL 50 MG TAB PO PRN (07:17)
--- NOTE | 2018-06-08 14:26 | FAST ---
SHIFT START DATE/TIME: 06/08/2018 07:00 (CDT) SHIFT END DATE/TIME: 06/08/2018 19:00 (CDT) NAME YANICK COOPER DATE OF : 1950 DATE OF ADMISSION: 05/29/2018 17:19 (CDT) PHONE: AGE: 68 N# [id number] GENDER: Male ENCOUNTER PHYSICIAN: Dr. Mc Clarke M.D. ADMISSION DIAGNOSIS: - Debility 16 - Debility (16) SEPSIS, UTI, HYPERTENSION, DIABETES MELLITUS. EATING: EATING - STEP 1: Does the patient require the assistance of a person or device, or need extra time when eating? Yes. EATING - STEP 2: Does the patient require the assistance of a helper? Yes. EATING - STEP 3: Does the patient perform half or more of the eating tasks? Yes. EATING - STEP 4: Does the patient need only supervision, cuing, coaxing OR help to apply an orthosis OR help to cut fo od, open containers, pour liquids, or butter bread? Yes. EATING - SCORE: 5-SUP GROOMING: Comb/brush hair Wash, rinse, and dry face Wash, rinse, and dry hands GROOMING - STEP 1: Does the patient require the assistance of a person or device, or need extra time when grooming? Yes. GROOMING - STEP 2: Does the patient require the assistance of a helper? Yes. GROOMING - STEP 3: How much assistance does the patient require from the helper? Cuing, coaxing, instructions, or encour agement for completion of grooming GROOMING - SCORE: 5-SUP BATHING: Activity did not occur on this shift BATHING - SCORE: 0-UNK DRESSING - UPPER BODY: Activity did not occur on this shift ARTICLES SCORE Total number of steps: 0 DRESSING - UPPER BODY - SCORE: 0-UNK DRESSING - LOWER BODY: Elastic waist pants (three steps) Underwear (three steps) ARTICLES SCORE Total number of steps: 6 DRESSING - LOWER BODY - STEP 1: Does the patient require help from a person or device, or need extra time when dressing below the [address] st? Yes. DRESSING - LOWER BODY - STEP 2: Does the patient require the assistance of a helper? Yes. DRESSING - LOWER BODY - STEP 3: Does the helper touch the patient while dressing? Yes. DRESSING - LOWER BODY - STEP 4: How many of the total steps does the patient complete on his/her own? 0 DRESSING - LOWER BODY - STEP 5: Does patient require total assistance for dressing below the waist such as the helper holding clothin g and performing basically all the activities? Yes. DRESSING - LOWER BODY - SCORE: 1-DEP TOILETING: Activity did not occur on this shift TOILETING - SCORE: 0-UNK BLADDER MANAGEMENT: [place] removes incontinent device (Depends, pull ups, etc.); cleans the patient after accident / inco ntinent episode; and, applies new incontinent device. BLADDER MANAGEMENT - SCORE: 1-DEP BLADDER MANAGEMENT - FREQUENCY OF ACCIDENTS: BLADDER MANAGEMENT(FA) - STEP 1: How many accidents has the patient had during the current shift? 3 BOWEL MANAGEMENT: Activity did not occur on this shift BOWEL MANAGEMENT - SCORE: 7-IND BOWEL MANAGEMENT - FREQUENCY OF ACCIDENTS: BOWEL MANAGEMENT(FA) - STEP 1: How many accidents has the patient had during the current shift? 0 TRANSFERS: BED, CHAIR, WHEELCHAIR: TRANSFERS: BED, CHAIR, WHEELCHAIR - STEP 1: Does the patient require assistance of a person or device, or need extra time with bed, chair, or whe elchair transfers? Yes. TRANSFERS: BED, CHAIR, WHEELCHAIR - STEP 2: Does the patient require the assistance of a helper? Yes. TRANSFERS: BED, CHAIR, WHEELCHAIR - STEP 3: How much assistance does the patient require from the helper? Steadying/guiding assistance TRANSFERS: BED, CHAIR, WHEELCHAIR - SCORE: 4-MIN TRANSFERS: TOILET: Activity did not occur on this shift TRANSFERS: TOILET - SCORE: 0-UNK TRANSFERS: SHOWER: Activity did not occur on this shift TRANSFERS: SHOWER - SCORE: 0-UNK TRANSFERS: TUB: Activity did not occur on this shift TRANSFERS: TUB - SCORE: 0-UNK LOCOMOTION: WALK: Activity did not occur on this shift LOCOMOTION: WALK - SCORE: 0-UNK LOCOMOTION: WHEELCHAIR: Activity did not occur on this shift LOCOMOTION: WHEELCHAIR - SCORE: 0-UNK COMPREHENSION: COMPREHENSION: TYPE: Both COMPREHENSION - STEP 1: Does the patient require help from a person or device, or need extra time to understand complex and a bstract ideas (such as current events, finances, discharge planning, medical issues, relationships, e tc)? Yes. COMPREHENSION - STEP 2: Does the patient require help to understand questions or statements about basic needs or ideas (such as hunger, thirst, sleep, safety, daily schedule, room location, or discomfort) half or more of the t mary? No. COMPREHENSION - STEP 3: How often does the patient need help to understand directions and conversation about basic needs? 10% - 24% of the time COMPREHENSION - SCORE: 4-MIN EXPRESSION EXPRESSION: TYPE: Both EXPRESSION - STEP 1: Does the patient require help from a person or device, or need extra time expressing complex and abst ract ideas (such as current events, finances, discharge planning, medical issues, relationships, etc) ? Yes. EXPRESSION - STEP 2: Does the patient require help to express basic necessities or ideas (such as hunger, thirst, sleep, s afety, daily schedule, room location, or discomfort) half or more of the time? No. EXPRESSION - STEP 3: How often does the patient need help to express directions and conversation about basic needs? Less t story 10% of the time EXPRESSION - SCORE: 5-SUP SOCIAL INTERACTION: SOCIAL INTERACTION - STEP 1: Does the patient require a helper to interact with others in social and therapeutic situations? Yes. SOCIAL INTERACTION - STEP 2: Does the patient interact appropriately half or more of the time? Yes. SOCIAL INTERACTION - STEP 3: How often does the patient need help to interact appropriately? Less than 10% of the time SOCIAL INTERACTION - SCORE: 5-SUP PROBLEM SOLVING: PROBLEM SOLVING - STEP 1: Does the patient need help from a person or device, or need extra time to solve complex problems such as managing a checking account or confronting interpersonal problems? Yes. PROBLEM SOLVING - STEP 2: Does the patient solve basic routine problems half or more of the time? Yes. PROBLEM SOLVING - STEP 3: How often does the patient need help to solve basic routine problems? 10%-24% of the time PROBLEM SOLVING - SCORE: 4-MIN MEMORY: MEMORY - STEP 1: Does the patient need help from a person or device, or need extra time to remember frequently encount ered people, daily routines, and executing requests? Yes. MEMORY - STEP 2: How often does the patient need help to remember frequently encountered people, daily routines, and e xecuting requests? 10% - 24% of the time MEMORY - SCORE: 4-MIN SIGNATURE PANEL: The following modified sections: Eating - Score, Grooming - Score, Bathing - Score, Dressing - Upper Body - Score, Dressing - Lower Body - Score, Toileting - Score, Bladder Management - Score, Bowel Man agement - Score, Transfers: Bed, Chair, Wheelchair - Score, Transfers: Toilet - Score, Transfers: Lisa wer - Score, Transfers: Tub - Score, Locomotion: Walk - Score, Locomotion: Wheelchair - Score, Compre hension - Score, Expression - Score, Social Interaction - Score, Problem Solving - Score, Memory - Sc ore were [electronically] signed by Yenifer [email or web address] on FriJun 08 2018 14:25:43 T-0500 (Centra l Daylight Time)
--- NOTE | 2018-06-08 14:39 | FAST ---
ENCOUNTER DATE AND TIME: 06/03/2018 08:00 (CDT) NAME YANICK COOPER DATE OF : 1950 DATE OF ADMISSION: 05/29/2018 17:19 (CDT) PHONE: AGE: 68 N# [id number] GENDER: Male ENCOUNTER PHYSICIAN: Dr. Mc Clarke M.D. ADMISSION DIAGNOSIS: - Debility 16 - Debility (16) SEPSIS, UTI, HYPERTENSION, DIABETES MELLITUS. EATING: Activity did not occur on this shift EATING - SCORE: 0-UNK GROOMING: Comb/brush hair Patient shaved Wash, rinse, and dry face Wash, rinse, and dry hands GROOMING - STEP 1: Does the patient require the assistance of a person or device, or need extra time when grooming? Yes. GROOMING - STEP 2: Does the patient require the assistance of a helper? Yes. GROOMING - STEP 3: How much assistance does the patient require from the helper? More than incidental help GROOMING - STEP 4: How many grooming tasks does the patient perform WITHOUT the assistance of the helper? Half or more o f the grooming tasks GROOMING - SCORE: 3-MOD BATHING: Abdomen Buttocks Chest Left arm Left lower leg and foot Left upper leg Perineal area Right arm Right lower leg and foot Right upper leg BATHING - STEP 1: Does the patient require the assistance of a person or device, or need extra time when bathing? Yes. BATHING - STEP 2: Does the patient require the assistance of a helper? Yes. BATHING - STEP 3: How much assistance does the patient require from the helper? More than just incidental help BATHING - STEP 4: What percent of the body parts did the patient bathe WITHOUT the helper? Half or more of the body par ts BATHING - SCORE: 3-MOD DRESSING - UPPER BODY: T-shirt/pullover shirt (four steps) ARTICLES SCORE Total number of steps: 4 DRESSING - UPPER BODY - STEP 1: Does the patient require help from a person or device, or need extra time when dressing above the [address]? Yes. DRESSING - UPPER BODY - STEP 2: Does the patient require the assistance of a helper? Yes. DRESSING - UPPER BODY - STEP 3: Does the helper touch the patient while dressing? Yes. DRESSING - UPPER BODY - STEP 4: How many of the total steps does the patient complete on his/her own? 2 DRESSING - UPPER BODY - SCORE: 3-MOD DRESSING - LOWER BODY: Elastic waist pants (three steps) Slip-on shoe - Left foot (one step) Slip-on shoe - Right foot (one step) Sock - Left foot (one step) Sock - Right foot (one step) Underwear (three steps) ARTICLES SCORE Total number of steps: 10 DRESSING - LOWER BODY - STEP 1: Does the patient require help from a person or device, or need extra time when dressing below the [address]? Yes. DRESSING - LOWER BODY - STEP 2: Does the patient require the assistance of a helper? Yes. DRESSING - LOWER BODY - STEP 3: Does the helper touch the patient while dressing? Yes. DRESSING - LOWER BODY - STEP 4: How many of the total steps does the patient complete on his/her own? 0 DRESSING - LOWER BODY - STEP 5: Does patient require total assistance for dressing below the waist such as the helper holding clothin g and performing basically all the activities? Yes. DRESSING - LOWER BODY - SCORE: 1-DEP TOILETING: TOILETING - STEP 1: Does the patient require the assistance of a person or device, or need extra time with toileting? Yes . TOILETING - STEP 2: Does the patient require the assistance of a helper? Yes. TOILETING - STEP 3: How much assistance does the patient require from the helper? Hands-on assistance from the helper TOILETING - STEP 4: Of the 3 tasks: 1) Adjusting clothing prior to use, 2) Cleansing of perineal area, 3) Adjusting clot margaret after use; How many tasks does the patient perform WITHOUT assistance of the helper? Two tasks TOILETING - SCORE: 3-MOD BLADDER MANAGEMENT: Activity did not occur on this shift BLADDER MANAGEMENT - SCORE: 7-IND BOWEL MANAGEMENT: Activity did not occur on this shift BOWEL MANAGEMENT - SCORE: 7-IND TRANSFERS: BED, CHAIR, WHEELCHAIR: Activity did not occur on this shift TRANSFERS: BED, CHAIR, WHEELCHAIR - SCORE: 0-UNK TRANSFERS: TOILET: TRANSFERS: TOILET - STEP 1: Does the patient require the assistance of a person or device, or need extra time with toilet transfe rs? Yes. TRANSFERS: TOILET - STEP 2: Does the patient require the assistance of a helper? Yes. TRANSFERS: TOILET - STEP 3: How much assistance does the patient require from the helper? Patient performs half or more of the tr ansferring tasks TRANSFERS: TOILET - STEP 4: Does the patient need only incidental help such as contact guard or steadying during toilet transfer? No. Patient needs more than incidental help TRANSFERS: TOILET - SCORE: 3-MOD TRANSFERS: SHOWER: TRANSFERS: SHOWER - STEP 1: Does the patient require the assistance of a person or device, or need extra time with shower transfe rs? Yes. TRANSFERS: SHOWER - STEP 2: Does the patient require the assistance of a helper? Yes. TRANSFERS: SHOWER - STEP 3: How much assistance does the patient require from the helper? More than incidental help TRANSFERS: SHOWER - STEP 4: How much more help does the patient require from the helper? Lifting the patient up AND down from the wheelchair onto the shower chair TRANSFERS: SHOWER - SCORE: 2-MAX TRANSFERS: TUB: Activity did not occur on this shift TRANSFERS: TUB - SCORE: 0-UNK LOCOMOTION: WALK: Activity did not occur on this shift LOCOMOTION: WALK - SCORE: 0-UNK LOCOMOTION: WHEELCHAIR: Activity did not occur on this shift LOCOMOTION: WHEELCHAIR - SCORE: 0-UNK LOCOMOTION: STAIRS: Activity did not occur on this shift LOCOMOTION: STAIRS - SCORE: 0-UNK COMPREHENSION: COMPREHENSION: TYPE: Both COMPREHENSION - STEP 1: Does the patient require help from a person or device, or need extra time to understand complex and a bstract ideas (such as current events, finances, discharge planning, medical issues, relationships, e tc)? Yes. COMPREHENSION - STEP 2: Does the patient require help to understand questions or statements about basic needs or ideas (such as hunger, thirst, sleep, safety, daily schedule, room location, or discomfort) half or more of the t mary? No. COMPREHENSION - STEP 3: How often does the patient need help to understand directions and conversation about basic needs? 25% - 49% of the time COMPREHENSION - SCORE: 3-MOD EXPRESSION EXPRESSION: TYPE: Both EXPRESSION - STEP 1: Does the patient require help from a person or device, or need extra time expressing complex and abst ract ideas (such as current events, finances, discharge planning, medical issues, relationships, etc) ? Yes. EXPRESSION - STEP 2: Does the patient require help to express basic necessities or ideas (such as hunger, thirst, sleep, s afety, daily schedule, room location, or discomfort) half or more of the time? No. EXPRESSION - STEP 3: How often does the patient need help to express directions and conversation about basic needs? 25-49% of the time EXPRESSION - SCORE: 3-MOD SOCIAL INTERACTION: SOCIAL INTERACTION - STEP 1: Does the patient require a helper to interact with others in social and therapeutic situations? Yes. SOCIAL INTERACTION - STEP 2: Does the patient interact appropriately half or more of the time? Yes. SOCIAL INTERACTION - STEP 3: How often does the patient need help to interact appropriately? Less than 10% of the time SOCIAL INTERACTION - SCORE: 5-SUP PROBLEM SOLVING: PROBLEM SOLVING - STEP 1: Does the patient need help from a person or device, or need extra time to solve complex problems such as managing a checking account or confronting interpersonal problems? Yes. PROBLEM SOLVING - STEP 2: Does the patient solve basic routine problems half or more of the time? Yes. PROBLEM SOLVING - STEP 3: How often does the patient need help to solve basic routine problems? 25%-49% of the time PROBLEM SOLVING - SCORE: 3-MOD MEMORY: MEMORY - STEP 1: Does the patient need help from a person or device, or need extra time to remember frequently encount ered people, daily routines, and executing requests? Yes. MEMORY - STEP 2: How often does the patient need help to remember frequently encountered people, daily routines, and e xecuting requests? 25% - 49% of the time MEMORY - SCORE: 3-MOD SIGNATURE PANEL: The following modified sections: Eating - Score, Grooming - Score, Bathing - Score, Dressing - Upper Body - Score, Dressing - Lower Body - Score, Toileting - Score, Transfers: Bed, Chair, Wheelchair - S core, Transfers: Toilet - Score, Transfers: Shower - Score, Transfers: Tub - Score, Comprehension - S core, Expression - Score, Social Interaction - Score, Problem Solving - Score, Memory - Score were [e lectronically] signed by Sheila Mendez OT on FriJun 08 2018 14:38:13 T-0500 (Central Daylight T mary)
--- NOTE | 2018-06-08 15:01 | FAST ---
ENCOUNTER DATE AND TIME: 06/08/2018 08:00 (CDT) NAME YANICK COOPER DATE OF : 1950 DATE OF ADMISSION: 05/29/2018 17:19 (CDT) PHONE: AGE: 68 SSN# [id number] GENDER: Male ENCOUNTER PHYSICIAN: Dr. Mc Clarke M.D. ADMISSION DIAGNOSIS: - Debility 16 - Debility (16) SEPSIS, UTI, HYPERTENSION, DIABETES MELLITUS. EATING: Activity did not occur on this shift EATING - SCORE: 0-UNK GROOMING: Activity did not occur on this shift GROOMING - SCORE: 0-UNK BATHING: Activity did not occur on this shift BATHING - SCORE: 0-UNK DRESSING - UPPER BODY: Activity did not occur on this shift Patient is not dressing in public clothing ARTICLES SCORE Total number of steps: 0 DRESSING - UPPER BODY - SCORE: 0-UNK DRESSING - LOWER BODY: Activity did not occur on this shift Patient is not dressing in public clothing ARTICLES SCORE Total number of steps: 0 DRESSING - LOWER BODY - SCORE: 0-UNK TOILETING: Activity did not occur on this shift TOILETING - SCORE: 0-UNK BLADDER MANAGEMENT: Activity did not occur on this shift BLADDER MANAGEMENT - SCORE: 7-IND BOWEL MANAGEMENT: Activity did not occur on this shift BOWEL MANAGEMENT - SCORE: 7-IND TRANSFERS: BED, CHAIR, WHEELCHAIR: TRANSFERS: BED, CHAIR, WHEELCHAIR - STEP 1: Does the patient require assistance of a person or device, or need extra time with bed, chair, or whe elchair transfers? Yes. TRANSFERS: BED, CHAIR, WHEELCHAIR - STEP 2: Does the patient require the assistance of a helper? Yes. TRANSFERS: BED, CHAIR, WHEELCHAIR - STEP 3: How much assistance does the patient require from the helper? Steadying/guiding assistance TRANSFERS: BED, CHAIR, WHEELCHAIR - SCORE: 4-MIN TRANSFERS: TOILET: Activity did not occur on this shift TRANSFERS: TOILET - SCORE: 0-UNK TRANSFERS: SHOWER: Activity did not occur on this shift TRANSFERS: SHOWER - SCORE: 0-UNK TRANSFERS: TUB: Activity did not occur on this shift TRANSFERS: TUB - SCORE: 0-UNK LOCOMOTION: WALK: LOCOMOTION: WALK - STEP 1: Does the patient need help from a person or device, or need extra time to walk 150 feet? Yes. LOCOMOTION: WALK - STEP 2: How much assistance does the patient require to walk a minimum of 150 feet? Only incidental help such as contact guarding or steadying LOCOMOTION: WALK - SCORE: 4-MIN LOCOMOTION: WHEELCHAIR: LOCOMOTION: WHEELCHAIR - STEP 1: Does the patient need help to go 150 feet in a wheelchair? Yes. LOCOMOTION: WHEELCHAIR - STEP 2: How much assistance does the patient need from the helper? Patient goes less than 150 feet - but more than 50 feet - with the assistance of only one helper LOCOMOTION: WHEELCHAIR - SCORE: 2-MAX LOCOMOTION: STAIRS: Activity did not occur on this shift LOCOMOTION: STAIRS - SCORE: 0-UNK COMPREHENSION: COMPREHENSION - SCORE: 0-UNK EXPRESSION EXPRESSION - SCORE: 0-UNK SOCIAL INTERACTION: SOCIAL INTERACTION - SCORE: 0-UNK PROBLEM SOLVING: PROBLEM SOLVING - SCORE: 0-UNK MEMORY: MEMORY - SCORE: 0-UNK SIGNATURE PANEL: The following modified sections: Transfers: Bed, Chair, Wheelchair - Score, Transfers: Toilet - Score , Locomotion: Walk - Score, Locomotion: Wheelchair - Score, Locomotion: Stairs - Score were [electron ernesto] signed by Angelito Bravo PTA on FriJun 08 2018 15:00:12 GMT-0500 (Central Daylight Time)
--- NOTE | 2018-06-08 18:11 | R.PN ---
ENCOUNTER DATE AND TIME: 06/08/2018 18:04 (CDT) NAME YANICK COOPER DATE OF : 1950 DATE OF ADMISSION: 05/29/2018 17:19 (CDT) SEPSIS, UTI, HYPERTENSION, DIABETES MELLITUSCHIEF COMPLAINT: Debility, urinary tract infection SUBJECTIVE: Pt denied any Shortness of Breath. Pt denied any depression. Ambulated 225' with contact guard assistance using a rolling walker. WBC 9.4, Hgb 12.4, Plt 380, gluc ose range 166 to 180. Prealbumin 9.4. On hemocyte plus. Brain MRI shows no acute changes but moderate cerebral atrophy with small vessel ischemic disease. C- Spine CT shows moderate mid cervical spondylosis and no fractures. Bilateral hip x-rays show osteoart hritis with no fractures. VITAL SIGNS Temperature: 98.2 F SBP/DBP: 140/52 Pulse: 74 Resp: 16 MEDICATION ALLERGIES: ZOLPIDEM ENVIRONMENTAL ALLERGIES: None Known - Substance Allergies None Known - Other Allergies None Known NURSING: - Shower allowing shower - Lab Results blood Sugar Check ACHS ACTIVITIES OOB only with supervision THERAPIES: - Occupational Therapy Evaluate and Treat. - Physical Therapy Evaluate and Treat. PHYSICAL EXAM - Gen Alert and awake Lying in bed No apparent distress Oriented to: person, time, and place - Skin No breakdown No abnormalities - Eyes No abnormalities - ENMT No abnormalities - Neck No abnormalities - CVS RRR - Chest No abnormalities - Resp Clear to auscultation - Abd +bowel sounds - GI nondistended Deferred - No abnormalities - Ext No significant edema - MSK 4+/5 weakness in both lower extremities. Neck muscle spasms. - Neuro No focal neurological deficits. - Psych No abnormalities ASSESSMENT: Pt. is a 68 yo Right-handed white male.On 05/27/2018 he was admitted to [facility] with diagnosis SEPSIS, UTI, HYPERTENSION, DIABETES MELLITUS.His impairment category is Debility 1 6 - Debility (16).Pre-morbidly, Pt. was independent/mod-I in Self-Care, Sphincter Control, Transfers Control, Locomotion, Communication, and Social Cognition; and he had good Sphincter Control.Currentl y, he has deficits of Transfers Control, Locomotion, Endurance, Balance, Safety Awareness, and Self-C are.Pt. is now referred to [facility] for acute in-patient rehabilitation in o rder to maximize patient's functional independence in activities of daily living, strength, ROM, and mobility.- Rehab Goal Patient has realistic goal of being discharged at assistance level 6-[place] to reside at Home with Fam rl/Relatives. MDM/PLAN: - Physical Therapy Gait dysfunction - to improve, our physical therapists will perform initial evaluation of pt's statu s upon admission and devise an individualized program for Gait Training, and Wheel Chair mobility Inability to transfer - to improve, our physical therapists will perform initial evaluation of pt's status upon admission and devise an individualized program for Bed mobility Need for home safety evaluation - to improve, our physical therapists will perform initial evaluatio n of pt's status upon admission and devise an individualized program for Home Evaluation Need in caregiver upon discharge - to improve, our physical therapists will perform initial evaluati on of pt's status upon admission and devise an individualized program for Caregiver Training New precaution - to improve, our physical therapists will perform initial evaluation of pt's status upon admission and devise an individualized program for Patient precaution education Edema - to improve, our physical therapists will perform initial evaluation of pt's status upon admi ssion and devise an individualized program for Elevation Training, and Lymphedema Therapy Poor balance - to improve, our physical therapists will perform initial evaluation of pt's status up on admission and devise an individualized program for Balance Training Poor endurance - to improve, our physical therapists will perform initial evaluation of pt's status upon admission and devise an individualized program for Endurance Training Weakness - to improve, our physical therapists will perform initial evaluation of pt's status upon a dmission and devise an individualized program for Aquatic Therapy, Neuromuscular Reeducation, and Str engthening Achieving independence - to improve, our physical therapists will perform initial evaluation of pt's status upon admission and devise an individualized program for Community Reintegration Activities - Occupational Therapy ADL deficits - to improve, our occupation therapists will perform initial evaluation of pt's status upon admission and devise an individualized program for Bathing, Bed mobility, Community Reintegratio n, Cooking, Dressing, Eating, Fine Motor Skills, Grooming, Homemaking, Kitchen Mobility, Laundry, Pat ient Education, Safety Awareness, Splinting - Positioning, Transfers(Toilet, Tub, Shower), and Wheel Chair Management Need for administrator health care facility - to improve, our occupation therapists will perform initial evaluation of pt's status upon admission and devise an individualized program for Caregiver Training Weakness - to improve, our occupation therapists will perform initial evaluation of pt's status upon admission and devise an individualized program for Aquatic Therapy, Balance, Endurance, UE ROM, and UE strengthening - Diet Type Continue Regular - Diet - Liquid Texture Continue Regular - Tube Feed Continue N/A - Lab Results blood Sugar Check ACHS - Diet - Solid Texture Continue Regular - Shower allowing shower FUNCTIONAL STATUS: UPDATED AT WEEKLY TEAM CONFERENCE - Bladder Same accident frequency: 7-Ind - No accidents in the past 7 days - Bowel Same accident frequency: 7-Ind - No accidents in the past 7 days - Walking Same score based on distance walked: 3(>=150ft) - Wheelchair Same score based on distance traveled: 0(N/A) FUNCTIONAL STATUS: - Self-Care A. Eating Ind B. Grooming Ind C. Bathing sup D. Dressing - Upper sup E. Dressing - Lower sup F. Toileting CGA - Sphincter Control G: Bladder control Ind H: Bowel control Ind - Transfers Control I. Bed/Chair/Wheelchair CGA J. Toilet CGA K. Tub/Shower ADNO - Locomotion L. Walk/Wheelchair (C) Harley/CGA L. Walk/Wheelchair (W) Harley/CGA M. Stairs ADNO - Communication N. Comprehension (B) Ind O. Expression (B) Ind - Social Cognition P. Social Interaction Ind Q. Problem Solving Ind R. Memory Ind - Endurance Fair - Balance Fair - Safety Awareness Fair [facility] DEFICITS: Transfers Control, Locomotion, Endurance, Balance, Safety Awareness, and Self-Care SIGNATURE PANEL: (CDT)
[2018-06-08] MEDS: ROSUVASTATIN 10 MG TAB PO SCH (20:54)
[2018-06-08] MEDS: AMITRIPTYLINE 25 MG TAB PO SCH (20:54)
[2018-06-08] MEDS: DOCUSATE NA/SENNA CONC 1 TAB PO SCH (20:54)
[2018-06-08] MEDS: TRESIBA 50 UNIT SQ SCH (20:54)
--- NOTE | 2018-06-09 03:18 | FAST ---
SHIFT START DATE/TIME: 06/08/2018 19:00 (CDT) SHIFT END DATE/TIME: 06/09/2018 07:00 (CDT) NAME YANICK COOPER DATE OF : 1950 DATE OF ADMISSION: 05/29/2018 17:19 (CDT) PHONE: AGE: 68 SSN# [id number] GENDER: Male ENCOUNTER PHYSICIAN: Dr. Mc Clarke M.D. ADMISSION DIAGNOSIS: - Debility 16 - Debility (16) SEPSIS, UTI, HYPERTENSION, DIABETES MELLITUS. EATING: Activity did not occur on this shift EATING - SCORE: 0-UNK GROOMING: Activity did not occur on this shift GROOMING - SCORE: 0-UNK BATHING: Activity did not occur on this shift BATHING - SCORE: 0-UNK DRESSING - UPPER BODY: Patient is not dressing in public clothing ARTICLES SCORE Total number of steps: 0 DRESSING - UPPER BODY - SCORE: 0-UNK DRESSING - LOWER BODY: Patient is not dressing in public clothing ARTICLES SCORE Total number of steps: 0 DRESSING - LOWER BODY - SCORE: 0-UNK TOILETING: Activity did not occur on this shift TOILETING - SCORE: 0-UNK BLADDER MANAGEMENT: [place] removes incontinent device (Depends, pull ups, etc.); cleans the patient after accident / inco ntinent episode; and, applies new incontinent device. BLADDER MANAGEMENT - SCORE: 1-DEP BLADDER MANAGEMENT - FREQUENCY OF ACCIDENTS: BLADDER MANAGEMENT(FA) - STEP 1: How many accidents has the patient had during the current shift? 1 BOWEL MANAGEMENT: Activity did not occur on this shift BOWEL MANAGEMENT - SCORE: 7-IND TRANSFERS: BED, CHAIR, WHEELCHAIR: Activity did not occur on this shift TRANSFERS: BED, CHAIR, WHEELCHAIR - SCORE: 0-UNK TRANSFERS: TOILET: Activity did not occur on this shift TRANSFERS: TOILET - SCORE: 0-UNK TRANSFERS: SHOWER: Activity did not occur on this shift TRANSFERS: SHOWER - SCORE: 0-UNK TRANSFERS: TUB: Activity did not occur on this shift TRANSFERS: TUB - SCORE: 0-UNK LOCOMOTION: WALK: Activity did not occur on this shift LOCOMOTION: WALK - SCORE: 0-UNK LOCOMOTION: WHEELCHAIR: Activity did not occur on this shift LOCOMOTION: WHEELCHAIR - SCORE: 0-UNK COMPREHENSION: COMPREHENSION: TYPE: Both COMPREHENSION - STEP 1: Does the patient require help from a person or device, or need extra time to understand complex and a bstract ideas (such as current events, finances, discharge planning, medical issues, relationships, e tc)? No. COMPREHENSION - STEP 2: Does the patient need extra time, require an assistive device (such as glasses for visual comprehensi on or a hearing aid for auditory comprehension) or does s/he have mild difficulty understanding compl ex and abstract information? Yes. COMPREHENSION - SCORE: 6-ILA EXPRESSION EXPRESSION: TYPE: Both EXPRESSION - STEP 1: Does the patient require help from a person or device, or need extra time expressing complex and abst ract ideas (such as current events, finances, discharge planning, medical issues, relationships, etc) ? No. EXPRESSION - STEP 2: Does the patient need extra time, require an assistive device (such as augmentive communication syste m or a communication board), OR does s/he have mild difficulty expressing complex and abstract ideas (including mild dysarthria or mild word-find problems)? No. EXPRESSION - SCORE: 7-IND SOCIAL INTERACTION: SOCIAL INTERACTION - STEP 1: Does the patient require a helper to interact with others in social and therapeutic situations? No. SOCIAL INTERACTION - STEP 2: Does the patient need extra time in social situations, OR does s/he interact with staff, other patien ts, and family members ONLY in structured environments, OR does s/he require medication for social in teraction? Yes, patient requires medication for social interaction SOCIAL INTERACTION - SCORE: 6-ILA PROBLEM SOLVING: Patient requires bed/chair alarms due to attempts to get up unassisted when helper is needed. PROBLEM SOLVING - STEP 1: How often do the bed/chair alarms go off? Occasionally - the alarms go off about 25% or less PROBLEM SOLVING - SCORE: 4-MIN MEMORY: MEMORY - STEP 1: How often do the bed/chair alarms go off? Occasionally - the alarms go off about 25% of the time or l ess MEMORY - SCORE: 4-MIN SIGNATURE PANEL: The following modified sections: Eating - Score, Grooming - Score, Bathing - Score, Dressing - Upper Body - Score, Dressing - Lower Body - Score, Toileting - Score, Bladder Management - Score, Bowel Man agement - Score, Transfers: Bed, Chair, Wheelchair - Score, Transfers: Toilet - Score, Transfers: Lisa wer - Score, Transfers: Tub - Score, Locomotion: Walk - Score, Locomotion: Wheelchair - Score, Compre hension - Score, Expression - Score, Social Interaction - Score, Problem Solving - Score, Memory - Sc ore were [electronically] signed by Alicia Woods CNA on FriJun 09 2018 03:17:43 T-0500 ([place] Da ylight Time)
[2018-06-09] MEDS: METOPROLOL XL 25 MG TAB PO SCH ×2 (05:03→16:40)
[2018-06-09] MEDS: INSULIN -REGULAR HUMAN 50 UNIT/0.5 ML ML SQ SCH ×4 (07:30→20:52)
[2018-06-09] MEDS: LIDOCAINE 5% PATCH TOP SCH (07:59)
[2018-06-09] MEDS: TRAMADOL HCL 50 MG TAB PO PRN (08:01)
[2018-06-09] MEDS: MAGNESIUM OXIDE 400 MG TAB PO SCH ×2 (08:02→20:52)
[2018-06-09] MEDS: FE SULF/FA/VIT B COMP & C TAB PO SCH (08:02)
[2018-06-09] MEDS: CYANOCOBALAMIN 1,000 MCG TAB PO SCH (08:02)
[2018-06-09] MEDS: APIXABAN 2.5 MG TABLET PO SCH ×2 (08:02→20:52)
[2018-06-09] MEDS: EZETIMIBE 10 MG TAB PO SCH (08:03)
[2018-06-09] MEDS: TOLTERODINE LA 4 MG CAP PO SCH (08:03)
[2018-06-09] MEDS: CLOPIDOGREL 75 MG TABLET PO SCH (08:03)
[2018-06-09] MEDS: IRBESARTAN 150 MG TAB PO SCH (08:03)
[2018-06-09] MEDS: FOLIC ACID 1 MG TABLET PO SCH (08:04)
[2018-06-09] MEDS: ASPIRIN 81 MG CHEWABLE TABLET PO SCH (08:04)
--- NOTE | 2018-06-09 13:32 | FAST ---
SHIFT START DATE/TIME: 06/09/2018 07:00 (CDT) SHIFT END DATE/TIME: 06/09/2018 19:00 (CDT) NAME YANICK COOPER DATE OF : 1950 DATE OF ADMISSION: 05/29/2018 17:19 (CDT) PHONE: AGE: 68 N# [id number] GENDER: Male ENCOUNTER PHYSICIAN: Dr. Mc Clarke M.D. ADMISSION DIAGNOSIS: - Debility 16 - Debility (16) SEPSIS, UTI, HYPERTENSION, DIABETES MELLITUS. EATING: EATING - STEP 1: Does the patient require the assistance of a person or device, or need extra time when eating? Yes. EATING - STEP 2: Does the patient require the assistance of a helper? Yes. EATING - STEP 3: Does the patient perform half or more of the eating tasks? Yes. EATING - STEP 4: Does the patient need only supervision, cuing, coaxing OR help to apply an orthosis OR help to cut fo od, open containers, pour liquids, or butter bread? Yes. EATING - SCORE: 5-SUP GROOMING: Comb/brush hair Oral care Wash, rinse, and dry face Wash, rinse, and dry hands GROOMING - STEP 1: Does the patient require the assistance of a person or device, or need extra time when grooming? Yes. GROOMING - STEP 2: Does the patient require the assistance of a helper? Yes. GROOMING - STEP 3: How much assistance does the patient require from the helper? Only prior equipment preparation/set up from the helper GROOMING - SCORE: 5-SUP BATHING: Activity did not occur on this shift BATHING - SCORE: 0-UNK DRESSING - UPPER BODY: Activity did not occur on this shift ARTICLES SCORE Total number of steps: 0 DRESSING - UPPER BODY - SCORE: 0-UNK DRESSING - LOWER BODY: Activity did not occur on this shift ARTICLES SCORE Total number of steps: 0 DRESSING - LOWER BODY - SCORE: 0-UNK TOILETING: TOILETING - STEP 1: Does the patient require the assistance of a person or device, or need extra time with toileting? Yes . TOILETING - STEP 2: Does the patient require the assistance of a helper? Yes. TOILETING - STEP 3: How much assistance does the patient require from the helper? Hands-on assistance from the helper TOILETING - STEP 4: Of the 3 tasks: 1) Adjusting clothing prior to use, 2) Cleansing of perineal area, 3) Adjusting clot margaret after use; How many tasks does the patient perform WITHOUT assistance of the helper? One task TOILETING - SCORE: 2-MAX BLADDER MANAGEMENT: [place] removes incontinent device (Depends, pull ups, etc.); cleans the patient after accident / inco ntinent episode; and, applies new incontinent device. BLADDER MANAGEMENT - SCORE: 1-DEP BOWEL MANAGEMENT: Activity did not occur on this shift BOWEL MANAGEMENT - SCORE: 7-IND TRANSFERS: BED, CHAIR, WHEELCHAIR: TRANSFERS: BED, CHAIR, WHEELCHAIR - STEP 1: Does the patient require assistance of a person or device, or need extra time with bed, chair, or whe elchair transfers? Yes. TRANSFERS: BED, CHAIR, WHEELCHAIR - STEP 2: Does the patient require the assistance of a helper? Yes. TRANSFERS: BED, CHAIR, WHEELCHAIR - STEP 3: How much assistance does the patient require from the helper? Lifting of the patient TRANSFERS: BED, CHAIR, WHEELCHAIR - STEP 4: Does the helper lift the patient ONLY up? ONLY down? Up AND Down? ONLY up. TRANSFERS: BED, CHAIR, WHEELCHAIR - SCORE: 3-MOD TRANSFERS: TOILET: TRANSFERS: TOILET - STEP 1: Does the patient require the assistance of a person or device, or need extra time with toilet transfe rs? Yes. TRANSFERS: TOILET - STEP 2: Does the patient require the assistance of a helper? Yes. TRANSFERS: TOILET - STEP 3: How much assistance does the patient require from the helper? Patient performs half or more of the tr ansferring tasks TRANSFERS: TOILET - STEP 4: Does the patient need only incidental help such as contact guard or steadying during toilet transfer? No. Patient needs more than incidental help TRANSFERS: TOILET - SCORE: 3-MOD TRANSFERS: SHOWER: Activity did not occur on this shift TRANSFERS: SHOWER - SCORE: 0-UNK TRANSFERS: TUB: Activity did not occur on this shift TRANSFERS: TUB - SCORE: 0-UNK LOCOMOTION: WALK: Activity did not occur on this shift LOCOMOTION: WALK - SCORE: 0-UNK LOCOMOTION: WHEELCHAIR: Activity did not occur on this shift LOCOMOTION: WHEELCHAIR - SCORE: 0-UNK COMPREHENSION: COMPREHENSION: TYPE: Both COMPREHENSION - STEP 1: Does the patient require help from a person or device, or need extra time to understand complex and a bstract ideas (such as current events, finances, discharge planning, medical issues, relationships, e tc)? Yes. COMPREHENSION - STEP 2: Does the patient require help to understand questions or statements about basic needs or ideas (such as hunger, thirst, sleep, safety, daily schedule, room location, or discomfort) half or more of the t mary? No. COMPREHENSION - STEP 3: How often does the patient need help to understand directions and conversation about basic needs? Les s than 10% of the time COMPREHENSION - SCORE: 5-SUP EXPRESSION EXPRESSION: TYPE: Both EXPRESSION - STEP 1: Does the patient require help from a person or device, or need extra time expressing complex and abst ract ideas (such as current events, finances, discharge planning, medical issues, relationships, etc) ? Yes. EXPRESSION - STEP 2: Does the patient require help to express basic necessities or ideas (such as hunger, thirst, sleep, s afety, daily schedule, room location, or discomfort) half or more of the time? No. EXPRESSION - STEP 3: How often does the patient need help to express directions and conversation about basic needs? Less t story 10% of the time EXPRESSION - SCORE: 5-SUP SOCIAL INTERACTION: SOCIAL INTERACTION - STEP 1: Does the patient require a helper to interact with others in social and therapeutic situations? Yes. SOCIAL INTERACTION - STEP 2: Does the patient interact appropriately half or more of the time? Yes. SOCIAL INTERACTION - STEP 3: How often does the patient need help to interact appropriately? 10-24% of the time SOCIAL INTERACTION - SCORE: 4-MIN PROBLEM SOLVING: PROBLEM SOLVING - STEP 1: Does the patient need help from a person or device, or need extra time to solve complex problems such as managing a checking account or confronting interpersonal problems? Yes. PROBLEM SOLVING - STEP 2: Does the patient solve basic routine problems half or more of the time? Yes. PROBLEM SOLVING - STEP 3: How often does the patient need help to solve basic routine problems? 10%-24% of the time PROBLEM SOLVING - SCORE: 4-MIN MEMORY: MEMORY - STEP 1: Does the patient need help from a person or device, or need extra time to remember frequently encount ered people, daily routines, and executing requests? Yes. MEMORY - STEP 2: How often does the patient need help to remember frequently encountered people, daily routines, and e xecuting requests? 25% - 49% of the time MEMORY - SCORE: 3-MOD SIGNATURE PANEL: The following modified sections: Eating - Score, Grooming - Score, Bathing - Score, Dressing - Upper Body - Score, Dressing - Lower Body - Score, Toileting - Score, Bladder Management - Score, Bowel Man agement - Score, Transfers: Bed, Chair, Wheelchair - Score, Transfers: Toilet - Score, Transfers: Lisa wer - Score, Transfers: Tub - Score, Locomotion: Walk - Score, Locomotion: Wheelchair - Score, Compre hension - Score, Expression - Score, Social Interaction - Score, Problem Solving - Score, Memory - Sc ore were [electronically] signed by Raza Harry on FriJun 09 2018 13:31:47 GMT-0500 (Central Daylight Time)
--- NOTE | 2018-06-09 15:35 | FAST ---
ENCOUNTER DATE AND TIME: 06/09/2018 08:00 (CDT) NAME YANICK COOPER DATE OF : 1950 DATE OF ADMISSION: 05/29/2018 17:19 (CDT) PHONE: AGE: 68 SSN# [id number] GENDER: Male ENCOUNTER PHYSICIAN: Dr. Mc Clarke M.D. ADMISSION DIAGNOSIS: - Debility 16 - Debility (16) SEPSIS, UTI, HYPERTENSION, DIABETES MELLITUS. EATING: Activity did not occur on this shift EATING - SCORE: 0-UNK GROOMING: Activity did not occur on this shift GROOMING - SCORE: 0-UNK BATHING: Activity did not occur on this shift BATHING - SCORE: 0-UNK DRESSING - UPPER BODY: Activity did not occur on this shift Patient is not dressing in public clothing ARTICLES SCORE Total number of steps: 0 DRESSING - UPPER BODY - SCORE: 0-UNK DRESSING - LOWER BODY: Activity did not occur on this shift Patient is not dressing in public clothing ARTICLES SCORE Total number of steps: 0 DRESSING - LOWER BODY - SCORE: 0-UNK TOILETING: Activity did not occur on this shift TOILETING - SCORE: 0-UNK BLADDER MANAGEMENT: Activity did not occur on this shift BLADDER MANAGEMENT - SCORE: 7-IND BOWEL MANAGEMENT: Activity did not occur on this shift BOWEL MANAGEMENT - SCORE: 7-IND TRANSFERS: BED, CHAIR, WHEELCHAIR: TRANSFERS: BED, CHAIR, WHEELCHAIR - STEP 1: Does the patient require assistance of a person or device, or need extra time with bed, chair, or whe elchair transfers? Yes. TRANSFERS: BED, CHAIR, WHEELCHAIR - STEP 2: Does the patient require the assistance of a helper? Yes. TRANSFERS: BED, CHAIR, WHEELCHAIR - STEP 3: How much assistance does the patient require from the helper? Only supervision TRANSFERS: BED, CHAIR, WHEELCHAIR - SCORE: 5-SUP TRANSFERS: TOILET: Activity did not occur on this shift TRANSFERS: TOILET - SCORE: 0-UNK TRANSFERS: SHOWER: Activity did not occur on this shift TRANSFERS: SHOWER - SCORE: 0-UNK TRANSFERS: TUB: Activity did not occur on this shift TRANSFERS: TUB - SCORE: 0-UNK LOCOMOTION: WALK: LOCOMOTION: WALK - STEP 1: Does the patient need help from a person or device, or need extra time to walk 150 feet? Yes. LOCOMOTION: WALK - STEP 2: How much assistance does the patient require to walk a minimum of 150 feet? Only incidental help such as contact guarding or steadying LOCOMOTION: WALK - SCORE: 4-MIN LOCOMOTION: WHEELCHAIR: LOCOMOTION: WHEELCHAIR - STEP 1: Does the patient need help to go 150 feet in a wheelchair? Yes. LOCOMOTION: WHEELCHAIR - STEP 2: How much assistance does the patient need from the helper? Patient goes less than 150 feet - but more than 50 feet - with the assistance of only one helper LOCOMOTION: WHEELCHAIR - SCORE: 2-MAX LOCOMOTION: STAIRS: Activity did not occur on this shift LOCOMOTION: STAIRS - SCORE: 0-UNK COMPREHENSION: COMPREHENSION - SCORE: 0-UNK EXPRESSION EXPRESSION - SCORE: 0-UNK SOCIAL INTERACTION: SOCIAL INTERACTION - SCORE: 0-UNK PROBLEM SOLVING: PROBLEM SOLVING - SCORE: 0-UNK MEMORY: MEMORY - SCORE: 0-UNK SIGNATURE PANEL: The following modified sections: Transfers: Bed, Chair, Wheelchair - Score, Transfers: Toilet - Score , Locomotion: Walk - Score, Locomotion: Wheelchair - Score, Locomotion: Stairs - Score were [electron ernesto] signed by Angelito Bravo PTA on FriJun 09 2018 15:34:26 GMT-0500 (Central Daylight Time)
[2018-06-09] MEDS ORDERED: LACTULOSE 20 GM/30 ML UCUP PO PRN (16:32)
--- NOTE | 2018-06-09 18:57 | R.PN ---
ENCOUNTER DATE AND TIME: 06/09/2018 18:54 (CDT) NAME YANICK COOPER DATE OF : 1950 DATE OF ADMISSION: 05/29/2018 17:19 (CDT) SEPSIS, UTI, HYPERTENSION, DIABETES MELLITUSCHIEF COMPLAINT: Debility, urinary tract infection SUBJECTIVE: Pt denied any Shortness of Breath. Pt denied any depression. Ambulated 300' with contact guard assistance using a rolling walker. WBC 9.4, Hgb 12.4, Plt 380, gluc ose range 190 to 249. Prealbumin 9.4. On hemocyte plus. Brain MRI shows no acute changes but moderate cerebral atrophy with small vessel ischemic disease. C- Spine CT shows moderate mid cervical spondylosis and no fractures. Bilateral hip x-rays show osteoart hritis with no fractures. VITAL SIGNS Temperature: 98.2 F SBP/DBP: 129/70 Pulse: 63 Resp: 16 MEDICATION ALLERGIES: ZOLPIDEM ENVIRONMENTAL ALLERGIES: None Known - Substance Allergies None Known - Other Allergies None Known NURSING: - Shower allowing shower - Lab Results blood Sugar Check ACHS ACTIVITIES OOB only with supervision THERAPIES: - Occupational Therapy Evaluate and Treat. - Physical Therapy Evaluate and Treat. PHYSICAL EXAM - Gen Alert and awake Lying in bed No apparent distress Oriented to: person, time, and place - Skin No breakdown No abnormalities - Eyes No abnormalities - ENMT No abnormalities - Neck No abnormalities - CVS RRR - Chest No abnormalities - Resp Clear to auscultation - Abd +bowel sounds - GI nondistended Deferred - No abnormalities - Ext No significant edema - MSK 4+/5 weakness in both lower extremities. Neck muscle spasms. - Neuro No focal neurological deficits. - Psych No abnormalities ASSESSMENT: Pt. is a 68 yo Right-handed white male.On 05/27/2018 he was admitted to [facility] with diagnosis SEPSIS, UTI, HYPERTENSION, DIABETES MELLITUS.His impairment category is Debility 1 6 - Debility (16).Pre-morbidly, Pt. was independent/mod-I in Self-Care, Sphincter Control, Transfers Control, Locomotion, Communication, and Social Cognition; and he had good Sphincter Control.Currentl y, he has deficits of Transfers Control, Locomotion, Endurance, Balance, Safety Awareness, and Self-C are.Pt. is now referred to [facility] for acute in-patient rehabilitation in o rder to maximize patient's functional independence in activities of daily living, strength, ROM, and mobility.- Rehab Goal Patient has realistic goal of being discharged at assistance level 6-Nestor to reside at Home with Fam rl/Relatives. MDM/PLAN: - Physical Therapy Gait dysfunction - to improve, our physical therapists will perform initial evaluation of pt's statu s upon admission and devise an individualized program for Gait Training, and Wheel Chair mobility Inability to transfer - to improve, our physical therapists will perform initial evaluation of pt's status upon admission and devise an individualized program for Bed mobility Need for home safety evaluation - to improve, our physical therapists will perform initial evaluatio n of pt's status upon admission and devise an individualized program for Home Evaluation Need in caregiver upon discharge - to improve, our physical therapists will perform initial evaluati on of pt's status upon admission and devise an individualized program for Caregiver Training New precaution - to improve, our physical therapists will perform initial evaluation of pt's status upon admission and devise an individualized program for Patient precaution education Edema - to improve, our physical therapists will perform initial evaluation of pt's status upon admi ssion and devise an individualized program for Elevation Training, and Lymphedema Therapy Poor balance - to improve, our physical therapists will perform initial evaluation of pt's status up on admission and devise an individualized program for Balance Training Poor endurance - to improve, our physical therapists will perform initial evaluation of pt's status upon admission and devise an individualized program for Endurance Training Weakness - to improve, our physical therapists will perform initial evaluation of pt's status upon a dmission and devise an individualized program for Aquatic Therapy, Neuromuscular Reeducation, and Str engthening Achieving independence - to improve, our physical therapists will perform initial evaluation of pt's status upon admission and devise an individualized program for Community Reintegration Activities - Occupational Therapy ADL deficits - to improve, our occupation therapists will perform initial evaluation of pt's status upon admission and devise an individualized program for Bathing, Bed mobility, Community Reintegratio n, Cooking, Dressing, Eating, Fine Motor Skills, Grooming, Homemaking, Kitchen Mobility, Laundry, Pat ient Education, Safety Awareness, Splinting - Positioning, Transfers(Toilet, Tub, Shower), and Wheel Chair Management Need for family day care worker - to improve, our occupation therapists will perform initial evaluation of pt's status upon admission and devise an individualized program for Caregiver Training Weakness - to improve, our occupation therapists will perform initial evaluation of pt's status upon admission and devise an individualized program for Aquatic Therapy, Balance, Endurance, UE ROM, and UE strengthening - Diet Type Continue Regular - Diet - Liquid Texture Continue Regular - Tube Feed Continue N/A - Lab Results blood Sugar Check ACHS - Diet - Solid Texture Continue Regular - Shower allowing shower FUNCTIONAL STATUS: UPDATED AT WEEKLY TEAM CONFERENCE - Bladder Same accident frequency: 7-Ind - No accidents in the past 7 days - Bowel Same accident frequency: 7-Ind - No accidents in the past 7 days - Walking Same score based on distance walked: 3(>=150ft) - Wheelchair Same score based on distance traveled: 0(N/A) FUNCTIONAL STATUS: - Self-Care A. Eating Ind B. Grooming Ind C. Bathing sup D. Dressing - Upper sup E. Dressing - Lower sup F. Toileting CGA - Sphincter Control G: Bladder control Ind H: Bowel control Ind - Transfers Control I. Bed/Chair/Wheelchair CGA J. Toilet CGA K. Tub/Shower ADNO - Locomotion L. Walk/Wheelchair (C) Harley/CGA L. Walk/Wheelchair (W) Harley/CGA M. Stairs ADNO - Communication N. Comprehension (B) Ind O. Expression (B) Ind - Social Cognition P. Social Interaction Ind Q. Problem Solving Ind R. Memory Ind - Endurance Fair - Balance Fair - Safety Awareness Fair CURRENT [facility]. DEFICITS: Transfers Control, Locomotion, Endurance, Balance, Safety Awareness, and Self-Care SIGNATURE PANEL: (CDT)
[2018-06-09] MEDS: AMITRIPTYLINE 25 MG TAB PO SCH (20:52)
[2018-06-09] MEDS: DOCUSATE NA/SENNA CONC 1 TAB PO SCH (20:52)
[2018-06-09] MEDS: ROSUVASTATIN 10 MG TAB PO SCH (20:53)
[2018-06-09] MEDS: TRESIBA 50 UNIT SQ SCH (20:53)
[2018-06-09] MEDS: MELATONIN 3 MG TABLET PO PRN (20:53)
--- NOTE | 2018-06-10 03:35 | FAST ---
SHIFT START DATE/TIME: 06/09/2018 19:00 (CDT) SHIFT END DATE/TIME: 06/10/2018 07:00 (CDT) NAME YANICK COOPER DATE OF : 1950 DATE OF ADMISSION: 05/29/2018 17:19 (CDT) PHONE: AGE: 68 SSN# [id number] GENDER: Male ENCOUNTER PHYSICIAN: Dr. Mc Clarke M.D. ADMISSION DIAGNOSIS: - Debility 16 - Debility (16) SEPSIS, UTI, HYPERTENSION, DIABETES MELLITUS. EATING: Activity did not occur on this shift EATING - SCORE: 0-UNK GROOMING: Activity did not occur on this shift GROOMING - SCORE: 0-UNK BATHING: Activity did not occur on this shift BATHING - SCORE: 0-UNK DRESSING - UPPER BODY: Activity did not occur on this shift ARTICLES SCORE Total number of steps: 0 DRESSING - UPPER BODY - SCORE: 0-UNK DRESSING - LOWER BODY: Activity did not occur on this shift ARTICLES SCORE Total number of steps: 0 DRESSING - LOWER BODY - SCORE: 0-UNK TOILETING: Activity did not occur on this shift TOILETING - SCORE: 0-UNK BLADDER MANAGEMENT: Aurora removes incontinent device (Depends, pull ups, etc.); cleans the patient after accident / inco ntinent episode; and, applies new incontinent device. BLADDER MANAGEMENT - SCORE: 1-DEP BLADDER MANAGEMENT - FREQUENCY OF ACCIDENTS: BLADDER MANAGEMENT(FA) - STEP 1: How many accidents has the patient had during the current shift? 1 BOWEL MANAGEMENT: Activity did not occur on this shift BOWEL MANAGEMENT - SCORE: 7-IND TRANSFERS: BED, CHAIR, WHEELCHAIR: Patient requires more than one helper and/or the use of a mechanical lift is utilized TRANSFERS: BED, CHAIR, WHEELCHAIR - SCORE: 1-DEP TRANSFERS: TOILET: Activity did not occur on this shift TRANSFERS: TOILET - SCORE: 0-UNK TRANSFERS: SHOWER: Activity did not occur on this shift TRANSFERS: SHOWER - SCORE: 0-UNK TRANSFERS: TUB: Activity did not occur on this shift TRANSFERS: TUB - SCORE: 0-UNK LOCOMOTION: WALK: Activity did not occur on this shift LOCOMOTION: WALK - SCORE: 0-UNK LOCOMOTION: WHEELCHAIR: Activity did not occur on this shift LOCOMOTION: WHEELCHAIR - SCORE: 0-UNK COMPREHENSION: COMPREHENSION: TYPE: Both COMPREHENSION - STEP 1: Does the patient require help from a person or device, or need extra time to understand complex and a bstract ideas (such as current events, finances, discharge planning, medical issues, relationships, e tc)? No. COMPREHENSION - STEP 2: Does the patient need extra time, require an assistive device (such as glasses for visual comprehensi on or a hearing aid for auditory comprehension) or does s/he have mild difficulty understanding compl ex and abstract information? Yes. COMPREHENSION - SCORE: 6-ILA EXPRESSION EXPRESSION: TYPE: Both EXPRESSION - STEP 1: Does the patient require help from a person or device, or need extra time expressing complex and abst ract ideas (such as current events, finances, discharge planning, medical issues, relationships, etc) ? No. EXPRESSION - STEP 2: Does the patient need extra time, require an assistive device (such as augmentive communication syste m or a communication board), OR does s/he have mild difficulty expressing complex and abstract ideas (including mild dysarthria or mild word-find problems)? No. EXPRESSION - SCORE: 7-IND SOCIAL INTERACTION: SOCIAL INTERACTION - STEP 1: Does the patient require a helper to interact with others in social and therapeutic situations? No. SOCIAL INTERACTION - STEP 2: Does the patient need extra time in social situations, OR does s/he interact with staff, other patien ts, and family members ONLY in structured environments, OR does s/he require medication for social in teraction? Yes, patient requires medication for social interaction SOCIAL INTERACTION - SCORE: 6-ILA PROBLEM SOLVING: Patient requires bed/chair alarms due to attempts to get up unassisted when helper is needed. PROBLEM SOLVING - STEP 1: How often do the bed/chair alarms go off? Occasionally - the alarms go off about 25% or less PROBLEM SOLVING - SCORE: 4-MIN MEMORY: MEMORY - STEP 1: How often do the bed/chair alarms go off? Occasionally - the alarms go off about 25% of the time or l ess MEMORY - SCORE: 4-MIN SIGNATURE PANEL: The following modified sections: Eating - Score, Grooming - Score, Bathing - Score, Dressing - Upper Body - Score, Dressing - Lower Body - Score, Toileting - Score, Bladder Management - Score, Bowel Man agement - Score, Transfers: Bed, Chair, Wheelchair - Score, Transfers: Toilet - Score, Transfers: Lisa wer - Score, Transfers: Tub - Score, Locomotion: Walk - Score, Locomotion: Wheelchair - Score, Compre hension - Score, Expression - Score, Social Interaction - Score, Problem Solving - Score, Memory - Sc ore were [electronically] signed by Alicia Woods CNA on FriJun 10 2018 03:35:24 T-0500 ([place] Da ylight Time)
[2018-06-10] MEDS: METOPROLOL XL 25 MG TAB PO SCH ×2 (05:01→17:15)
[2018-06-10] MEDS: IRBESARTAN 150 MG TAB PO SCH (08:00)
[2018-06-10] MEDS: LIDOCAINE 5% PATCH TOP SCH (08:21)
[2018-06-10] MEDS: CYANOCOBALAMIN 1,000 MCG TAB PO SCH (08:22)
[2018-06-10] MEDS: CLOPIDOGREL 75 MG TABLET PO SCH (08:22)
[2018-06-10] MEDS: EZETIMIBE 10 MG TAB PO SCH (08:23)
[2018-06-10] MEDS: APIXABAN 2.5 MG TABLET PO SCH ×2 (08:23→20:54)
[2018-06-10] MEDS: TRAMADOL HCL 50 MG TAB PO PRN (08:24)
[2018-06-10] MEDS: FE SULF/FA/VIT B COMP & C TAB PO SCH (08:24)
[2018-06-10] MEDS: ASPIRIN 81 MG CHEWABLE TABLET PO SCH (08:24)
[2018-06-10] MEDS: MAGNESIUM OXIDE 400 MG TAB PO SCH ×2 (08:24→20:54)
[2018-06-10] MEDS: FOLIC ACID 1 MG TABLET PO SCH (08:24)
[2018-06-10] MEDS: TOLTERODINE LA 4 MG CAP PO SCH (08:25)
[2018-06-10] MEDS: INSULIN -REGULAR HUMAN 50 UNIT/0.5 ML ML SQ SCH ×4 (08:25→21:32)
[2018-06-10] MEDS: BISACODYL 10 MG RECTAL SUPP PR PRN (09:28)
--- NOTE | 2018-06-10 15:19 | FAST ---
ENCOUNTER DATE AND TIME: 06/10/2018 08:00 (CDT) NAME YANICK COOPER DATE OF : 1950 DATE OF ADMISSION: 05/29/2018 17:19 (CDT) PHONE: AGE: 68 SSN# [id number] GENDER: Male ENCOUNTER PHYSICIAN: Dr. Mc Clarke M.D. ADMISSION DIAGNOSIS: - Debility 16 - Debility (16) SEPSIS, UTI, HYPERTENSION, DIABETES MELLITUS. EATING: Activity did not occur on this shift EATING - SCORE: 0-UNK GROOMING: Activity did not occur on this shift GROOMING - SCORE: 0-UNK BATHING: Activity did not occur on this shift BATHING - SCORE: 0-UNK DRESSING - UPPER BODY: Activity did not occur on this shift Patient is not dressing in public clothing ARTICLES SCORE Total number of steps: 0 DRESSING - UPPER BODY - SCORE: 0-UNK DRESSING - LOWER BODY: Activity did not occur on this shift Patient is not dressing in public clothing ARTICLES SCORE Total number of steps: 0 DRESSING - LOWER BODY - SCORE: 0-UNK TOILETING: Activity did not occur on this shift TOILETING - SCORE: 0-UNK BLADDER MANAGEMENT: Activity did not occur on this shift BLADDER MANAGEMENT - SCORE: 7-IND BOWEL MANAGEMENT: Activity did not occur on this shift BOWEL MANAGEMENT - SCORE: 7-IND TRANSFERS: BED, CHAIR, WHEELCHAIR: TRANSFERS: BED, CHAIR, WHEELCHAIR - STEP 1: Does the patient require assistance of a person or device, or need extra time with bed, chair, or whe elchair transfers? Yes. TRANSFERS: BED, CHAIR, WHEELCHAIR - STEP 2: Does the patient require the assistance of a helper? Yes. TRANSFERS: BED, CHAIR, WHEELCHAIR - STEP 3: How much assistance does the patient require from the helper? Only supervision TRANSFERS: BED, CHAIR, WHEELCHAIR - SCORE: 5-SUP TRANSFERS: TOILET: Activity did not occur on this shift TRANSFERS: TOILET - SCORE: 0-UNK TRANSFERS: SHOWER: Activity did not occur on this shift TRANSFERS: SHOWER - SCORE: 0-UNK TRANSFERS: TUB: Activity did not occur on this shift TRANSFERS: TUB - SCORE: 0-UNK LOCOMOTION: WALK: LOCOMOTION: WALK - STEP 1: Does the patient need help from a person or device, or need extra time to walk 150 feet? Yes. LOCOMOTION: WALK - STEP 2: How much assistance does the patient require to walk a minimum of 150 feet? Only incidental help such as contact guarding or steadying LOCOMOTION: WALK - SCORE: 4-MIN LOCOMOTION: WHEELCHAIR: LOCOMOTION: WHEELCHAIR - STEP 1: Does the patient need help to go 150 feet in a wheelchair? Yes. LOCOMOTION: WHEELCHAIR - STEP 2: How much assistance does the patient need from the helper? Patient goes less than 150 feet - but more than 50 feet - with the assistance of only one helper LOCOMOTION: WHEELCHAIR - SCORE: 2-MAX LOCOMOTION: STAIRS: Activity did not occur on this shift LOCOMOTION: STAIRS - SCORE: 0-UNK COMPREHENSION: COMPREHENSION - SCORE: 0-UNK EXPRESSION EXPRESSION - SCORE: 0-UNK SOCIAL INTERACTION: SOCIAL INTERACTION - SCORE: 0-UNK PROBLEM SOLVING: PROBLEM SOLVING - SCORE: 0-UNK MEMORY: MEMORY - SCORE: 0-UNK SIGNATURE PANEL: The following modified sections: Transfers: Bed, Chair, Wheelchair - Score, Transfers: Toilet - Score , Locomotion: Walk - Score, Locomotion: Wheelchair - Score, Locomotion: Stairs - Score were [electron icabear] signed by Angelito Bravo PTA on FriJun 10 2018 15:17:59 GMT-0500 (Central Daylight Time)
--- NOTE | 2018-06-10 15:28 | FAST ---
SHIFT START DATE/TIME: 06/10/2018 07:00 (CDT) SHIFT END DATE/TIME: 06/10/2018 19:00 (CDT) NAME YANICK COOPER DATE OF : 1950 DATE OF ADMISSION: 05/29/2018 17:19 (CDT) PHONE: AGE: 68 N# [id number] GENDER: Male ENCOUNTER PHYSICIAN: Dr. Mc Clarke M.D. ADMISSION DIAGNOSIS: - Debility 16 - Debility (16) SEPSIS, UTI, HYPERTENSION, DIABETES MELLITUS. EATING: EATING - STEP 1: Does the patient require the assistance of a person or device, or need extra time when eating? Yes. EATING - STEP 2: Does the patient require the assistance of a helper? Yes. EATING - STEP 3: Does the patient perform half or more of the eating tasks? Yes. EATING - STEP 4: Does the patient need only supervision, cuing, coaxing OR help to apply an orthosis OR help to cut fo od, open containers, pour liquids, or butter bread? Yes. EATING - SCORE: 5-SUP GROOMING: Comb/brush hair Wash, rinse, and dry face Wash, rinse, and dry hands GROOMING - STEP 1: Does the patient require the assistance of a person or device, or need extra time when grooming? Yes. GROOMING - STEP 2: Does the patient require the assistance of a helper? Yes. GROOMING - STEP 3: How much assistance does the patient require from the helper? Only prior equipment preparation/set up from the helper GROOMING - SCORE: 5-SUP BATHING: Activity did not occur on this shift BATHING - SCORE: 0-UNK DRESSING - UPPER BODY: T-shirt/pullover shirt (four steps) ARTICLES SCORE Total number of steps: 4 DRESSING - UPPER BODY - STEP 1: Does the patient require help from a person or device, or need extra time when dressing above the [address]? Yes. DRESSING - UPPER BODY - STEP 2: Does the patient require the assistance of a helper? Yes. DRESSING - UPPER BODY - STEP 3: Does the helper touch the patient while dressing? No. DRESSING - UPPER BODY - SCORE: 5-SUP DRESSING - LOWER BODY: Elastic waist pants (three steps) Underwear (three steps) ARTICLES SCORE Total number of steps: 6 DRESSING - LOWER BODY - STEP 1: Does the patient require help from a person or device, or need extra time when dressing below the [address]? Yes. DRESSING - LOWER BODY - STEP 2: Does the patient require the assistance of a helper? Yes. DRESSING - LOWER BODY - STEP 3: Does the helper touch the patient while dressing? Yes. DRESSING - LOWER BODY - STEP 4: How many of the total steps does the patient complete on his/her own? 4 DRESSING - LOWER BODY - SCORE: 3-MOD TOILETING: TOILETING - STEP 1: Does the patient require the assistance of a person or device, or need extra time with toileting? Yes . TOILETING - STEP 2: Does the patient require the assistance of a helper? Yes. TOILETING - STEP 3: How much assistance does the patient require from the helper? Hands-on assistance from the helper TOILETING - STEP 4: Of the 3 tasks: 1) Adjusting clothing prior to use, 2) Cleansing of perineal area, 3) Adjusting clot margaret after use; How many tasks does the patient perform WITHOUT assistance of the helper? Three tasks with steadying assistance from the helper TOILETING - SCORE: 4-MIN BLADDER MANAGEMENT: [place] removes incontinent device (Depends, pull ups, etc.); cleans the patient after accident / inco ntinent episode; and, applies new incontinent device. BLADDER MANAGEMENT - SCORE: 1-DEP BLADDER MANAGEMENT - FREQUENCY OF ACCIDENTS: BLADDER MANAGEMENT(FA) - STEP 1: How many accidents has the patient had during the current shift? 1 BOWEL MANAGEMENT: Activity did not occur on this shift BOWEL MANAGEMENT - SCORE: 7-IND BOWEL MANAGEMENT - FREQUENCY OF ACCIDENTS: BOWEL MANAGEMENT(FA) - STEP 1: How many accidents has the patient had during the current shift? 0 TRANSFERS: BED, CHAIR, WHEELCHAIR: TRANSFERS: BED, CHAIR, WHEELCHAIR - STEP 1: Does the patient require assistance of a person or device, or need extra time with bed, chair, or whe elchair transfers? Yes. TRANSFERS: BED, CHAIR, WHEELCHAIR - STEP 2: Does the patient require the assistance of a helper? Yes. TRANSFERS: BED, CHAIR, WHEELCHAIR - STEP 3: How much assistance does the patient require from the helper? Steadying/guiding assistance TRANSFERS: BED, CHAIR, WHEELCHAIR - SCORE: 4-MIN TRANSFERS: TOILET: TRANSFERS: TOILET - STEP 1: Does the patient require the assistance of a person or device, or need extra time with toilet transfe rs? Yes. TRANSFERS: TOILET - STEP 2: Does the patient require the assistance of a helper? Yes. TRANSFERS: TOILET - STEP 3: How much assistance does the patient require from the helper? Patient performs half or more of the tr ansferring tasks TRANSFERS: TOILET - STEP 4: Does the patient need only incidental help such as contact guard or steadying during toilet transfer? No. Patient needs more than incidental help TRANSFERS: TOILET - SCORE: 3-MOD TRANSFERS: SHOWER: Activity did not occur on this shift TRANSFERS: SHOWER - SCORE: 0-UNK TRANSFERS: TUB: Activity did not occur on this shift TRANSFERS: TUB - SCORE: 0-UNK LOCOMOTION: WALK: Activity did not occur on this shift LOCOMOTION: WALK - SCORE: 0-UNK LOCOMOTION: WHEELCHAIR: Activity did not occur on this shift LOCOMOTION: WHEELCHAIR - SCORE: 0-UNK COMPREHENSION: COMPREHENSION: TYPE: Both COMPREHENSION - STEP 1: Does the patient require help from a person or device, or need extra time to understand complex and a bstract ideas (such as current events, finances, discharge planning, medical issues, relationships, e tc)? Yes. COMPREHENSION - STEP 2: Does the patient require help to understand questions or statements about basic needs or ideas (such as hunger, thirst, sleep, safety, daily schedule, room location, or discomfort) half or more of the t mary? No. COMPREHENSION - STEP 3: How often does the patient need help to understand directions and conversation about basic needs? Les s than 10% of the time COMPREHENSION - SCORE: 5-SUP EXPRESSION EXPRESSION: TYPE: Both EXPRESSION - STEP 1: Does the patient require help from a person or device, or need extra time expressing complex and abst ract ideas (such as current events, finances, discharge planning, medical issues, relationships, etc) ? Yes. EXPRESSION - STEP 2: Does the patient require help to express basic necessities or ideas (such as hunger, thirst, sleep, s afety, daily schedule, room location, or discomfort) half or more of the time? No. EXPRESSION - STEP 3: How often does the patient need help to express directions and conversation about basic needs? Less t story 10% of the time EXPRESSION - SCORE: 5-SUP SOCIAL INTERACTION: SOCIAL INTERACTION - STEP 1: Does the patient require a helper to interact with others in social and therapeutic situations? Yes. SOCIAL INTERACTION - STEP 2: Does the patient interact appropriately half or more of the time? Yes. SOCIAL INTERACTION - STEP 3: How often does the patient need help to interact appropriately? 10-24% of the time SOCIAL INTERACTION - SCORE: 4-MIN PROBLEM SOLVING: PROBLEM SOLVING - STEP 1: Does the patient need help from a person or device, or need extra time to solve complex problems such as managing a checking account or confronting interpersonal problems? Yes. PROBLEM SOLVING - STEP 2: Does the patient solve basic routine problems half or more of the time? Yes. PROBLEM SOLVING - STEP 3: How often does the patient need help to solve basic routine problems? 10%-24% of the time PROBLEM SOLVING - SCORE: 4-MIN MEMORY: MEMORY - STEP 1: Does the patient need help from a person or device, or need extra time to remember frequently encount ered people, daily routines, and executing requests? Yes. MEMORY - STEP 2: How often does the patient need help to remember frequently encountered people, daily routines, and e xecuting requests? 25% - 49% of the time MEMORY - SCORE: 3-MOD SIGNATURE PANEL: The following modified sections: Eating - Score, Grooming - Score, Bathing - Score, Dressing - Upper Body - Score, Dressing - Lower Body - Score, Toileting - Score, Bladder Management - Score, Bowel Man agement - Score, Transfers: Bed, Chair, Wheelchair - Score, Transfers: Toilet - Score, Transfers: Lisa wer - Score, Transfers: Tub - Score, Locomotion: Walk - Score, Locomotion: Wheelchair - Score, Compre hension - Score, Expression - Score, Social Interaction - Score, Problem Solving - Score, Memory - Sc ore were [electronically] signed by Yenifer OzunaNAnjel on FriJun 10 2018 15:27:16 T-0500 (Centra l Daylight Time)
--- NOTE | 2018-06-10 18:04 | R.PN ---
ENCOUNTER DATE AND TIME: 06/10/2018 18:00 (CDT) NAME YANICK COOPER DATE OF : 1950 DATE OF ADMISSION: 05/29/2018 17:19 (CDT) SEPSIS, UTI, HYPERTENSION, DIABETES MELLITUSCHIEF COMPLAINT: Debility, urinary tract infection SUBJECTIVE: Pt denied any Shortness of Breath. Pt denied any depression. Ambulated 300' with contact guard assistance using a rolling walker. WBC 9.4, Hgb 12.4, Plt 380, gluc ose range 186 to 259. Prealbumin 9.4. On hemocyte plus. Brain MRI shows no acute changes but moderate cerebral atrophy with small vessel ischemic disease. C- Spine CT shows moderate mid cervical spondylosis and no fractures. Bilateral hip x-rays show osteoart hritis with no fractures. VITAL SIGNS Temperature: 98.2 F SBP/DBP: 134/98 Pulse: 70 Resp: 16 MEDICATION ALLERGIES: ZOLPIDEM ENVIRONMENTAL ALLERGIES: None Known - Substance Allergies None Known - Other Allergies None Known NURSING: - Shower allowing shower - Lab Results blood Sugar Check ACHS ACTIVITIES OOB only with supervision THERAPIES: - Occupational Therapy Evaluate and Treat. - Physical Therapy Evaluate and Treat. PHYSICAL EXAM - Gen Alert and awake Lying in bed No apparent distress Oriented to: person, time, and place - Skin No breakdown No abnormalities - Eyes No abnormalities - ENMT No abnormalities - Neck No abnormalities - CVS RRR - Chest No abnormalities - Resp Clear to auscultation - Abd +bowel sounds - GI nondistended Deferred - No abnormalities - Ext No significant edema - MSK 4+/5 weakness in both lower extremities. Neck muscle spasms. - Neuro No focal neurological deficits. - Psych No abnormalities ASSESSMENT: Pt. is a 68 yo Right-handed white male.On 05/27/2018 he was admitted to [facility] with diagnosis SEPSIS, UTI, HYPERTENSION, DIABETES MELLITUS.His impairment category is Debility 1 6 - Debility (16).Pre-morbidly, Pt. was independent/mod-I in Self-Care, Sphincter Control, Transfers Control, Locomotion, Communication, and Social Cognition; and he had good Sphincter Control.Currentl y, he has deficits of Transfers Control, Locomotion, Endurance, Balance, Safety Awareness, and Self-C are.Pt. is now referred to [facility] for acute in-patient rehabilitation in o rder to maximize patient's functional independence in activities of daily living, strength, ROM, and mobility.- Rehab Goal Patient has realistic goal of being discharged at assistance level 6-[place] to reside at Home with Fam rl/Relatives. MDM/PLAN: - Physical Therapy Gait dysfunction - to improve, our physical therapists will perform initial evaluation of pt's statu s upon admission and devise an individualized program for Gait Training, and Wheel Chair mobility Inability to transfer - to improve, our physical therapists will perform initial evaluation of pt's status upon admission and devise an individualized program for Bed mobility Need for home safety evaluation - to improve, our physical therapists will perform initial evaluatio n of pt's status upon admission and devise an individualized program for Home Evaluation Need in caregiver upon discharge - to improve, our physical therapists will perform initial evaluati on of pt's status upon admission and devise an individualized program for Caregiver Training New precaution - to improve, our physical therapists will perform initial evaluation of pt's status upon admission and devise an individualized program for Patient precaution education Edema - to improve, our physical therapists will perform initial evaluation of pt's status upon admi ssion and devise an individualized program for Elevation Training, and Lymphedema Therapy Poor balance - to improve, our physical therapists will perform initial evaluation of pt's status up on admission and devise an individualized program for Balance Training Poor endurance - to improve, our physical therapists will perform initial evaluation of pt's status upon admission and devise an individualized program for Endurance Training Weakness - to improve, our physical therapists will perform initial evaluation of pt's status upon a dmission and devise an individualized program for Aquatic Therapy, Neuromuscular Reeducation, and Str engthening Achieving independence - to improve, our physical therapists will perform initial evaluation of pt's status upon admission and devise an individualized program for Community Reintegration Activities - Occupational Therapy ADL deficits - to improve, our occupation therapists will perform initial evaluation of pt's status upon admission and devise an individualized program for Bathing, Bed mobility, Community Reintegratio n, Cooking, Dressing, Eating, Fine Motor Skills, Grooming, Homemaking, Kitchen Mobility, Laundry, Pat ient Education, Safety Awareness, Splinting - Positioning, Transfers(Toilet, Tub, Shower), and Wheel Chair Management Need for residential child care counselor - to improve, our occupation therapists will perform initial evaluation of pt's status upon admission and devise an individualized program for Caregiver Training Weakness - to improve, our occupation therapists will perform initial evaluation of pt's status upon admission and devise an individualized program for Aquatic Therapy, Balance, Endurance, UE ROM, and UE strengthening - Diet Type Continue Regular - Diet - Liquid Texture Continue Regular - Tube Feed Continue N/A - Lab Results blood Sugar Check ACHS - Diet - Solid Texture Continue Regular - Shower allowing shower FUNCTIONAL STATUS: UPDATED AT WEEKLY TEAM CONFERENCE - Bladder Same accident frequency: 7-Ind - No accidents in the past 7 days - Bowel Same accident frequency: 7-Ind - No accidents in the past 7 days - Walking Same score based on distance walked: 3(>=150ft) - Wheelchair Same score based on distance traveled: 0(N/A) FUNCTIONAL STATUS: - Self-Care A. Eating Ind B. Grooming Ind C. Bathing sup D. Dressing - Upper sup E. Dressing - Lower sup F. Toileting CGA - Sphincter Control G: Bladder control Ind H: Bowel control Ind - Transfers Control I. Bed/Chair/Wheelchair CGA J. Toilet CGA K. Tub/Shower ADNO - Locomotion L. Walk/Wheelchair (C) [place]/CGA L. Walk/Wheelchair (W) [place]/CGA M. Stairs ADNO - Communication N. Comprehension (B) Ind O. Expression (B) Ind - Social Cognition P. Social Interaction Ind Q. Problem Solving Ind R. Memory Ind - Endurance Fair - Balance Fair - Safety Awareness [facility]IC[facility]: Transfers Control, Locomotion, Endurance, Balance, Safety Awareness, and Self-Care SIGNATURE PANEL: (CDT)
[2018-06-10] MEDS: ROSUVASTATIN 10 MG TAB PO SCH (20:54)
[2018-06-10] MEDS: MELATONIN 3 MG TABLET PO PRN (20:54)
[2018-06-10] MEDS: DOCUSATE NA/SENNA CONC 1 TAB PO SCH (20:55)
[2018-06-10] MEDS: AMITRIPTYLINE 25 MG TAB PO SCH (20:55)
[2018-06-10] MEDS: TRESIBA 50 UNIT SQ SCH (20:56)
[2018-06-10] MEDS ORDERED: INSULIN -REGULAR HUMAN 50 UNIT/0.5 ML ML ONE (21:42)
--- NOTE | 2018-06-11 01:40 | FAST ---
SHIFT START DATE/TIME: 06/10/2018 19:00 (CDT) SHIFT END DATE/TIME: 06/11/2018 07:00 (CDT) NAME YANICK COOPER DATE OF : 1950 DATE OF ADMISSION: 05/29/2018 17:19 (CDT) PHONE: AGE: 68 SSN# [id number] GENDER: Male ENCOUNTER PHYSICIAN: Dr. Mc Clarek M.D. ADMISSION DIAGNOSIS: - Debility 16 - Debility (16) SEPSIS, UTI, HYPERTENSION, DIABETES MELLITUS. EATING: Activity did not occur on this shift EATING - SCORE: 0-UNK GROOMING: Activity did not occur on this shift GROOMING - SCORE: 0-UNK BATHING: Activity did not occur on this shift BATHING - SCORE: 0-UNK DRESSING - UPPER BODY: Patient is not dressing in public clothing ARTICLES SCORE Total number of steps: 0 DRESSING - UPPER BODY - SCORE: 0-UNK DRESSING - LOWER BODY: Patient is not dressing in public clothing ARTICLES SCORE Total number of steps: 0 DRESSING - LOWER BODY - SCORE: 0-UNK TOILETING: Activity did not occur on this shift TOILETING - SCORE: 0-UNK BLADDER MANAGEMENT: [place] removes incontinent device (Depends, pull ups, etc.); cleans the patient after accident / inco ntinent episode; and, applies new incontinent device. BLADDER MANAGEMENT - SCORE: 1-DEP BLADDER MANAGEMENT - FREQUENCY OF ACCIDENTS: BLADDER MANAGEMENT(FA) - STEP 1: How many accidents has the patient had during the current shift? 2 BOWEL MANAGEMENT: Activity did not occur on this shift BOWEL MANAGEMENT - SCORE: 7-IND TRANSFERS: BED, CHAIR, WHEELCHAIR: Activity did not occur on this shift TRANSFERS: BED, CHAIR, WHEELCHAIR - SCORE: 0-UNK TRANSFERS: TOILET: Activity did not occur on this shift TRANSFERS: TOILET - SCORE: 0-UNK TRANSFERS: SHOWER: Activity did not occur on this shift TRANSFERS: SHOWER - SCORE: 0-UNK TRANSFERS: TUB: Activity did not occur on this shift TRANSFERS: TUB - SCORE: 0-UNK LOCOMOTION: WALK: Activity did not occur on this shift LOCOMOTION: WALK - SCORE: 0-UNK LOCOMOTION: WHEELCHAIR: Activity did not occur on this shift LOCOMOTION: WHEELCHAIR - SCORE: 0-UNK COMPREHENSION: COMPREHENSION: TYPE: Both COMPREHENSION - STEP 1: Does the patient require help from a person or device, or need extra time to understand complex and a bstract ideas (such as current events, finances, discharge planning, medical issues, relationships, e tc)? Yes. COMPREHENSION - STEP 2: Does the patient require help to understand questions or statements about basic needs or ideas (such as hunger, thirst, sleep, safety, daily schedule, room location, or discomfort) half or more of the t mary? No. COMPREHENSION - STEP 3: How often does the patient need help to understand directions and conversation about basic needs? 10% - 24% of the time COMPREHENSION - SCORE: 4-MIN EXPRESSION EXPRESSION: TYPE: Both EXPRESSION - STEP 1: Does the patient require help from a person or device, or need extra time expressing complex and abst ract ideas (such as current events, finances, discharge planning, medical issues, relationships, etc) ? No. EXPRESSION - STEP 2: Does the patient need extra time, require an assistive device (such as augmentive communication syste m or a communication board), OR does s/he have mild difficulty expressing complex and abstract ideas (including mild dysarthria or mild word-find problems)? Yes. EXPRESSION - SCORE: 6-ILA SOCIAL INTERACTION: SOCIAL INTERACTION - STEP 1: Does the patient require a helper to interact with others in social and therapeutic situations? No. SOCIAL INTERACTION - STEP 2: Does the patient need extra time in social situations, OR does s/he interact with staff, other patien ts, and family members ONLY in structured environments, OR does s/he require medication for social in teraction? Yes, patient requires medication for social interaction SOCIAL INTERACTION - SCORE: 6-ILA PROBLEM SOLVING: PROBLEM SOLVING - STEP 1: Does the patient need help from a person or device, or need extra time to solve complex problems such as managing a checking account or confronting interpersonal problems? Yes. PROBLEM SOLVING - STEP 2: Does the patient solve basic routine problems half or more of the time? Yes. PROBLEM SOLVING - STEP 3: How often does the patient need help to solve basic routine problems? 10%-24% of the time PROBLEM SOLVING - SCORE: 4-MIN MEMORY: MEMORY - STEP 1: Does the patient need help from a person or device, or need extra time to remember frequently encount ered people, daily routines, and executing requests? Yes. MEMORY - STEP 2: How often does the patient need help to remember frequently encountered people, daily routines, and e xecuting requests? 25% - 49% of the time MEMORY - SCORE: 3-MOD SIGNATURE PANEL: The following modified sections: Eating - Score, Grooming - Score, Dressing - Upper Body - Score, Harsha ssing - Lower Body - Score, Toileting - Score, Bladder Management - Score, Bowel Management - Score, Transfers: Bed, Chair, Wheelchair - Score, Transfers: Toilet - Score, Transfers: Shower - Score, [place] sfers: Tub - Score, Locomotion: Walk - Score, Locomotion: Wheelchair - Score, Comprehension - Score, Expression - Score, Social Interaction - Score, Problem Solving - Score, Memory - Score were [electro nically] signed by Leticia Ya CNA on FriJun 11 2018 01:39:28 GMT-0500 (Central Daylight Time)
[2018-06-11] MEDS: METOPROLOL XL 25 MG TAB PO SCH (05:17)
[2018-06-11 06:45] LABS: Absolute Lymphocytes (CBC) 1.8 K/uL (0.7-4.9); Absolute Monocytes 0.9 K/uL (0.1-1.3); Absolute Neutrophil 7.4 K/uL (1.8-8.0); Basophils % 1.1 % (0-1.3); Eosinophils % 3.2 % (0-4.4); Hematocrit 36.7 % (39.6-49.0); Lymphocytes % 16.8 % (15.3-44.8); MPV 7.6 fL (7.6-11.3); Monocytes % 8.3 % (3.3-12.3); RBC Red Blood Cell Count 4.21 M/uL (4.33-5.43)
[2018-06-11 07:03] LABS: Albumin 2.8 g/dL (3.4-5.0); BUN Blood Urea Nitrogen 11 mg/dL (7-18); Bicarbonate 26 mmol/L (21-32); Glucose Level 181 mg/dL (74-106); Magnesium 2.2 mg/dL (1.8-2.4); Potassium 4.2 mmol/L (3.5-5.1); Prealbumin 13.2 mg/dL (20-40); Sodium Level 137 mmol/L (136-145)
[2018-06-11] MEDS: INSULIN -REGULAR HUMAN 50 UNIT/0.5 ML ML SQ SCH ×2 (07:30→11:30)
[2018-06-11] MEDS: IRBESARTAN 150 MG TAB PO SCH (08:00)
[2018-06-11] MEDS: LIDOCAINE 5% PATCH TOP SCH ×2 (08:00→08:22)
[2018-06-11] MEDS: CLOPIDOGREL 75 MG TABLET PO SCH (08:22)
[2018-06-11] MEDS: FE SULF/FA/VIT B COMP & C TAB PO SCH (08:22)
[2018-06-11] MEDS: EZETIMIBE 10 MG TAB PO SCH (08:22)
[2018-06-11] MEDS: MAGNESIUM OXIDE 400 MG TAB PO SCH (08:22)
[2018-06-11] MEDS: APIXABAN 2.5 MG TABLET PO SCH (08:23)
[2018-06-11] MEDS: CYANOCOBALAMIN 1,000 MCG TAB PO SCH (08:23)
[2018-06-11] MEDS: ASPIRIN 81 MG CHEWABLE TABLET PO SCH (08:23)
[2018-06-11] MEDS: TOLTERODINE LA 4 MG CAP PO SCH (08:24)
[2018-06-11] MEDS: FOLIC ACID 1 MG TABLET PO SCH (08:24)
--- NOTE | 2018-06-11 11:50 | FAST ---
SHIFT START DATE/TIME: 06/11/2018 07:00 (CDT) SHIFT END DATE/TIME: 06/11/2018 19:00 (CDT) NAME YANICK COOPER DATE OF : 1950 DATE OF ADMISSION: 05/29/2018 17:19 (CDT) PHONE: AGE: 68 N# [id number] GENDER: Male ENCOUNTER PHYSICIAN: Dr. Mc Clarke M.D. ADMISSION DIAGNOSIS: - Debility 16 - Debility (16) SEPSIS, UTI, HYPERTENSION, DIABETES MELLITUS. EATING: EATING - STEP 1: Does the patient require the assistance of a person or device, or need extra time when eating? Yes. EATING - STEP 2: Does the patient require the assistance of a helper? No, patient only requires an assistive device, O R s/he takes more than reasonable time to eat, OR there is a safety concern, OR s/he requires modifie d food consistency EATING - SCORE: 6-ILA GROOMING: Comb/brush hair Oral care Wash, rinse, and dry face GROOMING - STEP 1: Does the patient require the assistance of a person or device, or need extra time when grooming? Yes. GROOMING - STEP 2: Does the patient require the assistance of a helper? Yes. GROOMING - STEP 3: How much assistance does the patient require from the helper? Only prior equipment preparation/set up from the helper GROOMING - SCORE: 5-SUP BATHING: Activity did not occur on this shift BATHING - SCORE: 0-UNK DRESSING - UPPER BODY: ARTICLES SCORE Total number of steps: 0 DRESSING - UPPER BODY - STEP 1: Does the patient require help from a person or device, or need extra time when dressing above the [address]? Yes. DRESSING - UPPER BODY - STEP 2: Does the patient require the assistance of a helper? Yes. DRESSING - UPPER BODY - STEP 3: Does the helper touch the patient while dressing? No. DRESSING - UPPER BODY - SCORE: 5-SUP DRESSING - LOWER BODY: Elastic waist pants (three steps) Underwear (three steps) ARTICLES SCORE Total number of steps: 6 DRESSING - LOWER BODY - STEP 1: Does the patient require help from a person or device, or need extra time when dressing below the [address]? Yes. DRESSING - LOWER BODY - STEP 2: Does the patient require the assistance of a helper? Yes. DRESSING - LOWER BODY - STEP 3: Does the helper touch the patient while dressing? Yes. DRESSING - LOWER BODY - STEP 4: How many of the total steps does the patient complete on his/her own? 4 DRESSING - LOWER BODY - SCORE: 3-MOD TOILETING: TOILETING - STEP 1: Does the patient require the assistance of a person or device, or need extra time with toileting? Yes . TOILETING - STEP 2: Does the patient require the assistance of a helper? Yes. TOILETING - STEP 3: How much assistance does the patient require from the helper? Hands-on assistance from the helper TOILETING - STEP 4: Of the 3 tasks: 1) Adjusting clothing prior to use, 2) Cleansing of perineal area, 3) Adjusting clot margaret after use; How many tasks does the patient perform WITHOUT assistance of the helper? Three tasks with steadying assistance from the helper TOILETING - SCORE: 4-MIN BLADDER MANAGEMENT: BLADDER MANAGEMENT - STEP 1: Does the patient control the bladder completely and intentionally without equipment or devices or med ications, and is always continent? No. BLADDER MANAGEMENT - STEP 2: Does the patient require the assistance of a helper? No, patient only requires extra time BLADDER MANAGEMENT - SCORE: 6-ILA BLADDER MANAGEMENT - FREQUENCY OF ACCIDENTS: BLADDER MANAGEMENT(FA) - STEP 1: How many accidents has the patient had during the current shift? 0 BOWEL MANAGEMENT: Activity did not occur on this shift BOWEL MANAGEMENT - SCORE: 7-IND BOWEL MANAGEMENT - FREQUENCY OF ACCIDENTS: BOWEL MANAGEMENT(FA) - STEP 1: How many accidents has the patient had during the current shift? 0 TRANSFERS: BED, CHAIR, WHEELCHAIR: TRANSFERS: BED, CHAIR, WHEELCHAIR - STEP 1: Does the patient require assistance of a person or device, or need extra time with bed, chair, or whe elchair transfers? Yes. TRANSFERS: BED, CHAIR, WHEELCHAIR - STEP 2: Does the patient require the assistance of a helper? Yes. TRANSFERS: BED, CHAIR, WHEELCHAIR - STEP 3: How much assistance does the patient require from the helper? Only supervision TRANSFERS: BED, CHAIR, WHEELCHAIR - SCORE: 5-SUP TRANSFERS: TOILET: TRANSFERS: TOILET - STEP 1: Does the patient require the assistance of a person or device, or need extra time with toilet transfe rs? Yes. TRANSFERS: TOILET - STEP 2: Does the patient require the assistance of a helper? Yes. TRANSFERS: TOILET - STEP 3: How much assistance does the patient require from the helper? Only supervision, cuing, coaxing, OR he lp to set out transfer equipment or to lock brakes and/or lift foot rests TRANSFERS: TOILET - SCORE: 5-SUP TRANSFERS: SHOWER: Activity did not occur on this shift TRANSFERS: SHOWER - SCORE: 0-UNK TRANSFERS: TUB: Activity did not occur on this shift TRANSFERS: TUB - SCORE: 0-UNK LOCOMOTION: WALK: Activity did not occur on this shift LOCOMOTION: WALK - SCORE: 0-UNK LOCOMOTION: WHEELCHAIR: LOCOMOTION: WHEELCHAIR - STEP 1: Does the patient need help to go 150 feet in a wheelchair? Yes. LOCOMOTION: WHEELCHAIR - STEP 2: How much assistance does the patient need from the helper? Only supervision, cuing, or coaxing LOCOMOTION: WHEELCHAIR - SCORE: 5-SUP COMPREHENSION: COMPREHENSION: TYPE: Both COMPREHENSION - STEP 1: Does the patient require help from a person or device, or need extra time to understand complex and a bstract ideas (such as current events, finances, discharge planning, medical issues, relationships, e tc)? Yes. COMPREHENSION - STEP 2: Does the patient require help to understand questions or statements about basic needs or ideas (such as hunger, thirst, sleep, safety, daily schedule, room location, or discomfort) half or more of the t mary? No. COMPREHENSION - STEP 3: How often does the patient need help to understand directions and conversation about basic needs? Les s than 10% of the time COMPREHENSION - SCORE: 5-SUP EXPRESSION EXPRESSION: TYPE: Both EXPRESSION - STEP 1: Does the patient require help from a person or device, or need extra time expressing complex and abst ract ideas (such as current events, finances, discharge planning, medical issues, relationships, etc) ? Yes. EXPRESSION - STEP 2: Does the patient require help to express basic necessities or ideas (such as hunger, thirst, sleep, s afety, daily schedule, room location, or discomfort) half or more of the time? No. EXPRESSION - STEP 3: How often does the patient need help to express directions and conversation about basic needs? Less t story 10% of the time EXPRESSION - SCORE: 5-SUP SOCIAL INTERACTION: SOCIAL INTERACTION - STEP 1: Does the patient require a helper to interact with others in social and therapeutic situations? Yes. SOCIAL INTERACTION - STEP 2: Does the patient interact appropriately half or more of the time? Yes. SOCIAL INTERACTION - STEP 3: How often does the patient need help to interact appropriately? 10-24% of the time SOCIAL INTERACTION - SCORE: 4-MIN PROBLEM SOLVING: PROBLEM SOLVING - STEP 1: Does the patient need help from a person or device, or need extra time to solve complex problems such as managing a checking account or confronting interpersonal problems? Yes. PROBLEM SOLVING - STEP 2: Does the patient solve basic routine problems half or more of the time? Yes. PROBLEM SOLVING - STEP 3: How often does the patient need help to solve basic routine problems? Less than 10% of the time PROBLEM SOLVING - SCORE: 5-SUP MEMORY: MEMORY - STEP 1: Does the patient need help from a person or device, or need extra time to remember frequently encount ered people, daily routines, and executing requests? Yes. MEMORY - STEP 2: How often does the patient need help to remember frequently encountered people, daily routines, and e xecuting requests? 10% - 24% of the time MEMORY - SCORE: 4-MIN SIGNATURE PANEL: The following modified sections: Eating - Score, Grooming - Score, Bathing - Score, Dressing - Upper Body - Score, Dressing - Lower Body - Score, Toileting - Score, Bladder Management - Score, Bowel Man agement - Score, Transfers: Bed, Chair, Wheelchair - Score, Transfers: Toilet - Score, Transfers: Lisa wer - Score, Transfers: Tub - Score, Locomotion: Walk - Score, Locomotion: Wheelchair - Score, Compre hension - Score, Expression - Score, Social Interaction - Score, Problem Solving - Score, Memory - Sc ore were [electronically] signed by Yenifer OzunaNAnjel on FriJun 11 2018 11:49:36 T-0500 (Centra l Daylight Time)
--- NOTE | 2018-06-11 15:45 | FAST ---
ENCOUNTER DATE AND TIME: 06/11/2018 08:00 (CDT) NAME YANICK COOPER DATE OF : 1950 DATE OF ADMISSION: 05/29/2018 17:19 (CDT) PHONE: AGE: 68 SSN# [id number] GENDER: Male ENCOUNTER PHYSICIAN: Dr. Mc Clarke M.D. ADMISSION DIAGNOSIS: - Debility 16 - Debility (16) SEPSIS, UTI, HYPERTENSION, DIABETES MELLITUS. EATING: Activity did not occur on this shift EATING - SCORE: 0-UNK GROOMING: Activity did not occur on this shift GROOMING - SCORE: 0-UNK BATHING: Activity did not occur on this shift BATHING - SCORE: 0-UNK DRESSING - UPPER BODY: Activity did not occur on this shift Patient is not dressing in public clothing ARTICLES SCORE Total number of steps: 0 DRESSING - UPPER BODY - SCORE: 0-UNK DRESSING - LOWER BODY: Activity did not occur on this shift Patient is not dressing in public clothing ARTICLES SCORE Total number of steps: 0 DRESSING - LOWER BODY - SCORE: 0-UNK TOILETING: Activity did not occur on this shift TOILETING - SCORE: 0-UNK BLADDER MANAGEMENT: Activity did not occur on this shift BLADDER MANAGEMENT - SCORE: 7-IND BOWEL MANAGEMENT: Activity did not occur on this shift BOWEL MANAGEMENT - SCORE: 7-IND TRANSFERS: BED, CHAIR, WHEELCHAIR: TRANSFERS: BED, CHAIR, WHEELCHAIR - STEP 1: Does the patient require assistance of a person or device, or need extra time with bed, chair, or whe elchair transfers? Yes. TRANSFERS: BED, CHAIR, WHEELCHAIR - STEP 2: Does the patient require the assistance of a helper? No. Patient only requires an assistive device fo r bed, chair, wheelchair transfers such as a sliding board, grab bar, or brace, OR s/he takes more th an reasonable time, OR there is a safety concern when s/he performs the transfers TRANSFERS: BED, CHAIR, WHEELCHAIR - SCORE: 6-ILA TRANSFERS: TOILET: Activity did not occur on this shift TRANSFERS: TOILET - SCORE: 0-UNK TRANSFERS: SHOWER: Activity did not occur on this shift TRANSFERS: SHOWER - SCORE: 0-UNK TRANSFERS: TUB: Activity did not occur on this shift TRANSFERS: TUB - SCORE: 0-UNK LOCOMOTION: WALK: LOCOMOTION: WALK - STEP 1: Does the patient need help from a person or device, or need extra time to walk 150 feet? Yes. LOCOMOTION: WALK - STEP 2: How much assistance does the patient require to walk a minimum of 150 feet? Only supervision, cuing, or coaxing LOCOMOTION: WALK - SCORE: 5-SUP LOCOMOTION: WHEELCHAIR: LOCOMOTION: WHEELCHAIR - STEP 1: Does the patient need help to go 150 feet in a wheelchair? Yes. LOCOMOTION: WHEELCHAIR - STEP 2: How much assistance does the patient need from the helper? Patient goes less than 150 feet - but more than 50 feet - with the assistance of only one helper LOCOMOTION: WHEELCHAIR - SCORE: 2-MAX LOCOMOTION: STAIRS: Activity did not occur on this shift LOCOMOTION: STAIRS - SCORE: 0-UNK COMPREHENSION: COMPREHENSION - SCORE: 0-UNK EXPRESSION EXPRESSION - SCORE: 0-UNK SOCIAL INTERACTION: SOCIAL INTERACTION - SCORE: 0-UNK PROBLEM SOLVING: PROBLEM SOLVING - SCORE: 0-UNK MEMORY: MEMORY - SCORE: 0-UNK SIGNATURE PANEL: The following modified sections: Transfers: Bed, Chair, Wheelchair - Score, Transfers: Toilet - Score , Locomotion: Walk - Score, Locomotion: Wheelchair - Score, Locomotion: Stairs - Score were [electron ernesto] signed by Angelito Bravo PTA on FriJun 11 2018 15:43:59 GMT-0500 (Central Daylight Time)
== END 2018-06-11 13:50 | DRG 947 ==
LOC: 5TH 17:19
PROVIDERS: ADMIT Psychiatry & Neurology Neurology with Special Qualifications in Child Neurology; ATTEND Psychiatry & Neurology Neurology with Special Qualifications in Child Neurology
DX: R53.81 Other malaise (principal); A41.9 Sepsis, unspecified organism; N39.0 Urinary tract infection, site not specified; E11.40 Type 2 diabetes mellitus with diabetic neuropathy, unspecified; I10 Essential (primary) hypertension; I25.10 Atherosclerotic heart disease of native coronary artery without angina pectoris; G31.9 Degenerative disease of nervous system, unspecified; M47.892 Other spondylosis, cervical region; Z95.1 Presence of aortocoronary bypass graft
CPT/HCPCS: 36415; 70360; 70450; 70553; 71045; 72125; 74230; 80048; 80320; 81003; 82040; 82962; 83735; 84134; 85025; 87086; 87088; 92507; 92523; 92526; 92611; 95819; 97110; 97112; 97116; 97127; 97150; 97163; 97167; 97530; 97542; A9577

== ENCOUNTER 2020-03-04 17:25 | Inpatient (IN) | payer OTHER ==
--- OUTSIDE RECORDS SUMMARY | 2020-03-04 17:27 | XMS REPORT | Clinical Summary ---
:1950 Author Organization [facility] Address [address] [place] [address] Care Team Providers Name Role Phone Kim Valenzuela MD Primary Care Provider Allergies No [...] tablet metFORMIN Take 1,000 mg by 0 Act tyrone (GLUCOPHAGE) 1000 MG mouth 2 (two) times tablet daily with breakfast and dinner. ezetimibe (ZETIA) 10 Take 10 mg by mouth 0 Active mg tablet daily. clopidogrel (PLAVIX) Take 75 mg by mouth 0 Active 75 mg tablet daily. Missing or Pt on a medication 0 Active Non-Formulary for gout. Cannot Medication recall name of it . repaglinide (PRANDIN) Take 1 mg by mouth 0 Active 1 MG tablet daily. aspirin 81 MG EC Take 81 mg by mouth 0 Active tablet daily. Active Problems Problem Noted Date Abnormal nuclear stress test 10/02/2015 CAD (coronary artery disease) 08/30/2015 Diabetes 08/30/2015 Hypertension 08/30/2015 Hyperlipidemia 08/30/2015 Family History Medical History Relation Name Comments Cancer Father Diabetes Father Heart disease Father Coronary artery disease Mother Diabetes Mother Relation Name Status Comments Father Mother Social History Tobacco Use Types Packs/Day Years Used Date Light Tobacco Smoker Smokeless Tobacco: Former User Comments: smokes a pipe Alcohol Use Drinks/Week oz/Week Comments No Sex Assigned at Date Recorded Not on file Last Filed Vital Signs Not on file Plan of Treatment Health Maintenance Due Date Last Done Comments COLON CANCER SCREENING COLONOSCOPY 1950 DIABETIC EYE EXAM 1959 DIABETIC FOOT EXAM 1959 URINE MICROALBUMIN 1959 HEPATITIS B VACCINE (1 of 3 - Risk 3-dose series) 01/17/1968 PNEUMOCOCCAL 65+ YRS (1 of 1 - [id number] PCV13) 2014 MEDICARE ANNUAL WELLNESS (YEAR 2 or FIRST YEAR if no 06/26/2015 IPPE) HEMOGLOBIN A1C 08/30/2015 INFLUENZA VACCINE (#1) 2019 DEPRESSION SCREENING (12+) 02/25/2020 Results Not on fileafter 03/04/2019 Insurance Payer Benefit Plan / Subscriber ID Effective Dates Phone Addre ss Type Group MEDICARE MEDICARE A B [id number] 2014-Present Medicare AETNA - MGD CARE AETNA INDEMNITY [id number] 2000-Present Comm NON CONTR Advance Directives For more information, please contact: [phone] Code Status Date Activated Date Inactivated Comments Full Code 08/10/2018 8:44 AM 08/10/2018 1:51 PM This code status was determined by: Patient Full Code 08/10/2018 5:41 AM 08/10/2018 8:44 AM This code status was determined by: Patient Full Code 08/10/2018 5:41 AM 08/10/2018 5:41 AM This code status was determined by: Patient Full Code 10/02/2015 6:15 AM 10/02/2015 7:01 PM This code status was determined by: Patient
--- OUTSIDE RECORDS SUMMARY | 2020-03-04 17:28 | XMS REPORT | Continuity of Care Document ---
:1950 Author Organization [facility] t Address [address] [place] [address] Care Team Providers Name Role Phone Nicolas BRANDON, Kim Primary Care Physician Gray Hahn Attending Clinician Dick BRANDON Attending Clinician Karolyn ELLINGTON Attending Clinician Unavailable Karolyn ELLINGTON Admitting Clinician Unavailable Problems Condition Condition Condition Status Onset Resolution Last Treating Co mments Source Name Details Category Date Date Treatment Clinician Date Abnormal Abnormal Disease [facility] stress stress 00:[facility]: [facility] test test 00 Center CAD CAD Disease Active [facility] (coronary (coronary 08-29 [employer] [facility] - artery artery 00:00: Medical disease) disease) 00 Center Diabetes Diabetes Disease [facility] - 00:[facility]: Medical 00 [place] Hypertensi Hypertensi Disease Active [facility] on 08-29 [facility] - 00[facility]00: Medical 00 [place] Hyperlipid Hyperlipid Disease Active [facility] emia emia 08-29 [facility] - 00:00: Medical 00 Center Allergies, Adverse Reactions, Alerts This patient has no known allergies or adverse reactions. Family History Family Member Diagnosis Comments Start Date Stop Date Source Natural father Cancer [facility] Natural father Diabetes [facility] Natural father Heart disease [facility] Natural mother Coronary artery [facility] Natural mother Diabetes [facility] Social History Social Habit Start Date Stop Date Quantity Comments Source Sex Assigned At [facility] Tobacco use and 2018-08-11 2018-08-11 Former user [facility] - exposure 00:00:00 00:00:00 [facility] Alcohol intake 2018-08-11 2018-08-11 Current JERARDO Delgado es - 00:00:00 00:00:00 non-drinker of Medical Ce nter alcohol (finding) Tobacco Comment 2018-08-10 2018-08-10 [facility] Smoking Status Start Date Stop Date Source Light tobacco smoker 2018-08-11 00:00:00 [facility] Medications Ordered Filled Start Stop Current Ordering Indication Dosage Frequency Signature Comments Components Source Medication Medication Date Date Medication? Clinician (SIG) Name Name metoprolol Yes 50mg Q.5D Take [address] (LOPRESSOR) 6-17 by mouth 2 Linda kes - 50 MG 11:51: (two) Medical tablet 02 times Center daily. irbesartan Yes 300mg QD Take [address] (AVAPRO) 6-17 mg by [facility] - 300 MG 11:51: mouth Medical tablet 02 nightly. [place] rosuvastati Yes 20mg QD Take [address] [facility] (CRESTOR) 6-17 by mouth Luke s - 20 MG 11:51: daily. Medical tablet 02 [place] metFORMIN Yes 1000mg Take 1,[address] (GLUCOPHAGE 6-17 mg by [facility] - ) 1000 MG 11:51: mouth 2 Medic al tablet 02 (two) Center times daily with breakfast and dinner. ezetimibe Yes 10mg QD Take [address] (ZETIA) 10 6-17 by mouth [facility] - mg tablet 11:51: daily. Medica l [address] [place] [address] clopidogrel Yes 75mg QD Take [address] [facility] (PLAVIX) 75 6-17 by mouth Luke s - mg tablet 11:51: daily. Medica l 02 Center Missing or Yes Pt on a [facility] Non-Formula 6-17 medication Linda kes - ry 11:51: for gout. Medical Medication 02 [facility] Center recall name of it . repaglinide Yes 1mg QD Take [address] (PRANDIN) 1 6-17 by mouth Luke [facility] - MG tablet 11:51: [facility] [address] aspirin 81 2019-0 Yes 81mg QD Take [address] MG EC 6-17 by mouth [facility] - tablet 11:51: daily. [address] Procedures This patient has no known procedures. Plan of Care Planned Activity Planned Date Details Comments Source Future Scheduled 2020-02-[address] [facility] - Test 00:00:00 (12+) [code = Medical Center DEPRESSION SCREENING (12+)] Future Scheduled 2019-10-26 INFLUENZA VACCINE (#1) [facility] - Test 00:00:00 [code = INFLUENZA Medical nter VACCINE (#1)] Future Scheduled 2015-08-[address] Linda kes - Test 00:00:00 measurement [facility] (procedure) [code = 58261122] Future Scheduled 2015-06-[address] [facility] - Test 00:00:00 WELLNESS (YEAR 2 or Medical Center FIRST YEAR if no IPPE) [code = MEDICARE ANNUAL WELLNESS (YEAR 2 or FIRST YEAR if no IPPE)] Future Scheduled 2014 PNEUMOCOCCAL 65+ [facility]RS [facility] - Test 00:00:00 (1 of 1 - Medical Center [id number] PCV13) [code = PNEUMOCOCCAL 65+ YRS (1 of 1 - [id number] PCV13)] Future Scheduled 1968-01-17 HEPATITIS B VACCINE ([address] [facility] - Test 00:00:00 of 3 - Risk 3-dose Medical C enter series) [code = HEPATITIS B VACCINE (1 of 3 - Risk 3-dose series)] Future Scheduled [address] DIABETIC EYE EXAM [facility] - Test 00:00:00 [code = DIABETIC EYE Medical Center EXAM] Future Scheduled [address] [facility] - Test 00:00:00 examination Medical Center (regime/therapy) [code = 296979749] Future Scheduled 1959 Urine screening for [facility] - Test 00:00:00 protein (procedure) [facility] [code = 420417970] Future Scheduled [address] [facility] - Test 00:00:00 malignant neoplasm of [facility] colon (procedure) [code = 561318531] Encounters Start End Encounter Admission Attending Care Care Encounter Source Date/Time Date/Time Type Type Clinicians Facility Department ID 2020-01-01 2020-01-01 Refill Vandana ILTAWANNA [id number] 00:00:00 00:00:00 Margarita John [id number] [place] [id number] Professio [phone] [address] 2019-12-29 2019-12-29 Telephone Dick [facility] [id number] 00:00:00 00:00:00 Frank John [id number] [place] [id number] Professio [phone] [address] 2019-12-22 2019-12-22 Telephone Vandana ILTAWANNA [id number] 00:00:00 00:00:00 Margarita John [id number] [place] [id number] Professio [id number] [address] 2019-11-22 2019-11-22 Office Dick [facility] [id number] 16:02:17 16:33:28 Visit Frank John [id number] [place] [id number] Professio [phone] [address] Results Test Description Test Time Test Comments Results Result Comments Source BASIC METABOLIC PANEL 2018-08-10 06:27:00 Test Item Value Reference Range Interpretation Comme nts SODIUM (BEAKER) (test code 138 meq/L 136-145 = 381) POTASSIUM (BEAKER) (test 4.2 meq/L 3.5-5.1 code = 379) CHLORIDE (BEAKER) (test 106 meq/L 98-107 code = 382) CO2 (BEAKER) (test code = 24 meq/L 22-29 355) BLOOD UREA NITROGEN 14 mg/dL 7-21 (BEAKER) (test code = 354) CREATININE (BEAKER) (test 0.85 mg/dL 0.57-1.25 code = 358) GLUCOSE RANDOM (BEAKER) 261 mg/dL 70-105 H (test code = 652) CALCIUM (BEAKER) (test code 9.2 mg/dL 8.4-10.2 = 697) EGFR (BEAKER) (test code = 89 mL/min/1.73 sq m ESTIMATED GFR IS NOT 1092) ACCURATE CRE ATININE CLEARANCE IN UT EDICTING GLOMERULAR FILT RATION RATE. ESTIMATED GFR IS NOT APPLICABLE FOR DIALYSIS PATIENTS. CBC W/PLT COUNT & AUTO [id number] 06:12:00 Test Item Value Reference Range Interpretation Comments WHITE BLOOD CELL COUNT (BEAKER) 8.3 K/ L 3.5-10.5 (test code = 775) RED BLOOD CELL COUNT (BEAKER) 4.76 M/ L 4.63-6.08 (test code = 761) HEMOGLOBIN (BEAKER) (test code = 14.1 GM/DL 13.7-17.5 410) HEMATOCRIT (BEAKER) (test code = 41.6 % 40.1-51.0 411) MEAN CORPUSCULAR VOLUME (BEAKER) 87.4 fL 79.0-92.2 (test code = 753) MEAN CORPUSCULAR HEMOGLOBIN 29.6 pg 25.7-32.2 (BEAKER) (test code = 751) MEAN CORPUSCULAR HEMOGLOBIN CONC 33.9 GM/DL 32.3-36.5 (BEAKER) (test code = 752) RED CELL DISTRIBUTION WIDTH 13.9 % 11.6-14.4 (BEAKER) (test code = 412) PLATELET COUNT (BEAKER) (test 205 K/CU MM 150-450 code = 756) MEAN PLATELET VOLUME (BEAKER) 10.4 fL 9.4-12.4 (test code = 754) NUCLEATED RED BLOOD CELLS 0 /100 WBC 0-0 (BEAKER) (test code = 413) NEUTROPHILS RELATIVE PERCENT 56 % (BEAKER) (test code = 429) LYMPHOCYTES RELATIVE PERCENT 29 % (BEAKER) (test code = 430) MONOCYTES RELATIVE PERCENT 10 % (BEAKER) (test code = 431) EOSINOPHILS RELATIVE PERCENT 4 % (BEAKER) (test code = 432) BASOPHILS RELATIVE PERCENT 1 % (BEAKER) (test code = 437) NEUTROPHILS ABSOLUTE COUNT 4.65 K/ L 1.78-5.38 (BEAKER) (test code = 670) LYMPHOCYTES ABSOLUTE COUNT 2.42 K/ L 1.32-3.57 (BEAKER) (test code = 414) MONOCYTES ABSOLUTE COUNT (BEAKER) 0.79 K/ L 0.30-0.82 (test code = 415) EOSINOPHILS ABSOLUTE COUNT 0.34 K/ L 0.04-0.54 (BEAKER) (test code = 416) BASOPHILS ABSOLUTE COUNT (BEAKER) 0.08 K/ L 0.01-0.08 (test code = 417) IMMATURE GRANULOCYTES-RELATIVE 0 % 0-1 PERCENT (BEAKER) (test code = 2807)
--- OUTSIDE RECORDS SUMMARY | 2020-03-04 17:28 | XMS REPORT | Summary of Care ---
:1950 Author Organization [facility] Address [address] [place] [address] Care Team Providers Name Role Phone Pcp, Patient Does Not Have A Primary Care Provider +1-000-00 0-0000 Reason for Visit Reason Comments Refill Request Encounter Details Date Type Department Care Team Description 01/01/2020 Refill [facility] Urology- Bell Ross, F[employer] PRODUCT TESTER Refill Request [place] [address] [facility] [address] [facility] [address] [place] [address] [place] [address] [phone] Allergies No Known Allergiesdocumented as of this encounter (statuses as of 01/05/2020) Medications Medication Sig Dispensed Refills Start Date End Date Status insulin degludec inject 50 0 Act tyrone (TRESIBA U-100 Units under INSULIN) 100 the skin. unit/mL Soln metoprolol Take 25 mg by 0 Activ e succinate XL 25 mg mouth 2 (two) 24 hr tablet times daily. clopidogrel 75 mg Take 75 mg by 0 Active tablet mouth daily. rosuvastatin 20 mg Take 20 mg by 0 Active tablet mouth at bedtime. ezetimibe 10 mg Take 10 mg by 0 Active tablet mouth daily. repaglinide 1 mg Take 1 mg by 0 Active tablet mouth 3 (three) times daily before meals. irbesartan 300 mg Take 300 mg by 0 Active tablet mouth at bedtime. metFORMIN 1,000 mg Take 1,000 mg 0 Active 24 hr tablet by mouth 2 (two) times daily with meals. aspirin 81 mg Take 81 mg by 0 Ac tive chewable tablet mouth daily. tolterodine LA 4 Take 4 mg by 0 Active mg 24 hr capsule mouth daily. mirabegron Take 1 tablet 30 tablet 2 12/22/2019 Acti ve (MYRBETRIQ) 50 mg by mouth tabletIndications: daily. BPH with obstruction/lower urinary tract symptoms TAMSULOSIN 0.4 mg TAKE 1 CAPSULE 90 capsule 2 01/05/2020 Active 24 hr BY MOUTH capsuleIndications EVERYDAY AT : BPH with BEDTIME obstruction/lower urinary tract symptoms tamsulosin 0.4 mg Take 1 capsule 30 capsule 4 12/29/201901/04 Discontinued 24 hr by mouth at capsuleIndications bedtime. : BPH with obstruction/lower urinary tract symptoms documented as of this encounter (statuses as of 01/05/2020) Active Problems No known active problemsdocumented as of this encounter (statuses as of 01/05/2020) Social History Tobacco Use Types Packs/Day Years Used Date Current Every Day Smoker Smokeless Tobacco: Never Used Sex Assigned at Date Recorded Not on file documented as of this encounter Last Filed Vital Signs Not on filedocumented in this encounter Plan of Treatment Date Type Specialty Care Team Description 05/24/2020 Office Visit Urology Margarita Ross, [employer] PR[employer] TESTER [address] [place] [address] 15 [phone] Health Maintenance Due Date Last Done Comments HEPATITIS C (HCV) SCREEN 1950 DTaP,Tdap,and Td Vaccines (1 - Tdap) 01/17/1968 COLON CANCER SCREENING ANNUAL FIT/FOBT 1999 COLON CANCER SCREENING FIT DNA EVERY 3 YEARS 1999 COLON CANCER SCREENING SIGMOIDOSCOPY EVERY 5 YEARS 1999 COLONOSCOPY 1999 Colorectal Cancer Screening 1999 Zoster Recombinant Vaccine (SHINGRIX) (1 of 2) 1999 LUNG CANCER SCREEN: Recommended for age 55-80 with 30 01/17/2004 + pack year history Medicare Wellness Visit 2014 PNEUMOCOCCAL VACCINES 65+ (1 of 1 - PPSV23) 2014 INFLUENZA VACCINE (#1) 2019 Depression Screening 03/08/2020 03/08/2019 documented as of this encounter Results Not on filedocumented in this encounter Visit Diagnoses Diagnosis BPH with obstruction/lower urinary tract symptoms Hypertrophy of prostate with urinary obs truction and other lower urinary tract symptoms (LUTS) documented in this encounter Insurance Payer Benefit Plan / Subscriber ID Effective Dates Phone Addre ss Type Group MEDICARE MEDICARE PART A [id number] 2013-[place] [phone] Medicare & B nt [id number] [place] [id number] AET[employer] AETNA INDEMNITY [id number] 2013-[place] Indemnity nt documented as of this encounter
--- OUTSIDE RECORDS SUMMARY | 2020-03-04 17:28 | XMS REPORT | Summary of Care ---
:1950 Author Organization [facility] Address [address] [place] [address] Care Team Providers Name Role Phone Pcp, Patient Does Not Have A Primary Care Provider +1-000-00 0-0000 Reason for Visit Reason Comments Refill Request Encounter Details Date Type Department Care Team Description 12/29/2019 Telephone [facility] Urology- Jasmin Jennings MD Refill Request [address] [address] [address] [place] [address] [phone] Allergies No Known Allergiesdocumented as of this encounter (statuses as of 12/30/2019) Medications Medication Sig Dispensed Refills Start Date End Date Status insulin degludec inject 50 0 Act tyrone (TRESIBA U-100 Units under INSULIN) 100 the skin. unit/mL Soln metoprolol Take 25 mg 0 Active succinate XL 25 mg by mouth 2 24 hr tablet (two) times daily. clopidogrel 75 mg Take 75 mg 0 A ctive tablet by mouth daily. rosuvastatin 20 mg Take 20 mg 0 Active tablet by mouth at bedtime. ezetimibe 10 mg Take 10 mg 0 Act tyrone tablet by mouth daily. repaglinide 1 mg Take 1 mg by 0 Active tablet mouth 3 (three) times daily before meals. irbesartan 300 mg Take 300 mg 0 Active tablet by mouth at bedtime. metFORMIN 1,000 mg Take 1,000 0 Active 24 hr tablet mg by mouth 2 (two) times daily with meals. aspirin 81 mg Take 81 mg 0 Activ e chewable tablet by mouth daily. tolterodine LA 4 Take 4 mg by 0 Active mg 24 hr capsule mouth daily. mirabegron Take 1 30 tablet 2 12/22/2019 Active (MYRBETRIQ) 50 mg tablet by tabletIndications: mouth daily. BPH with obstruction/lower urinary tract symptoms tamsulosin 0.4 mg Take 1 30 capsule 4 12/29/2019 Active 24 hr capsule by capsuleIndications mouth at : BPH with bedtime. obstruction/lower urinary tract symptoms tamsulosin 0.4 mg Take 1 30 capsule 4 10/13/2018 Discontinued 24 hr capsule by 0 (Reorder) capsuleIndications mouth at : BPH with bedtime. obstruction/lower urinary tract symptoms documented as of this encounter (statuses as of 12/30/2019) Active Problems No known active problemsdocumented as of this encounter (statuses as of 12/30/2019) Social History Tobacco Use Types Packs/Day Years Used Date Current Every Day Smoker Smokeless Tobacco: Never Used Sex Assigned at Date Recorded Not on file documented as of this encounter Last Filed Vital Signs Not on filedocumented in this encounter Miscellaneous Notes Telephone Encounter - Lorenza Ferris RN - 12/29/2019 4:09 PM CSTRefill sent to pharmacy documented in this encounter Plan of Treatment Date Type Specialty Care Team Description 05/24/2020 Office Visit Urology Margarita Ross, CORONER'S JUROR [address] [place] [address] [address] [phone] Health Maintenance Due Date Last Done Comments [...] ss Type Group MEDICARE MEDICARE PART A [id number] 2013-[place] [phone] Medicare & B nt 82 [id number] [place] [id number] AETNA AETNA INDEMNITY [id number] 2013-[place] Indemnity nt documented as of this encounter
--- OUTSIDE RECORDS SUMMARY | 2020-03-04 17:28 | XMS REPORT | Summary of Care ---
:1950 Author Organization [facility] Address [address] [place] [address] Care Team Providers Name Role Phone Pcp, Patient Does Not Have A Primary Care Provider +1-000-00 0-0000 Reason for Visit Reason Comments Refill Request Encounter Details Date Type Department Care Team Description 12/22/2019 Telephone [facility] Urology- Bell Ross FNP Refill Request [place] [address] [facility] [address] [place] [address] [place] [address] [phone] Allergies No Known Allergiesdocumented as of this encounter (statuses as of 12/22/2019) Medications Medication Sig Dispensed Refills Start Date [...] Active mg 24 hr capsule mouth daily. tamsulosin 0.4 mg Take 1 30 capsule 4 10/13/2018 Active 24 hr capsule by capsuleIndications mouth at : BPH with bedtime. obstruction/lower urinary tract symptoms mirabegron Take 1 30 tablet 2 12/22/2019 Active (MYRBETRIQ) 50 mg tablet by tabletIndications: mouth daily. BPH with obstruction/lower urinary tract symptoms mirabegron Take 1 30 tablet 2 10/21/2018 Disconti nued (MYRBETRIQ) 50 mg tablet by 0 (R eorder) tabletIndications: mouth daily. BPH with obstruction/lower urinary tract symptoms documented as of this encounter (statuses as of 12/22/2019) Active Problems No known active problemsdocumented as of this encounter (statuses as of 12/22/2019) Social History Tobacco Use Types Packs/Day Years Used Date Current Every Day Smoker Smokeless Tobacco: Never Used Sex Assigned at Date Recorded Not on file COVID-19 Exposure Response Date Recorded In the last month, have you been in contact with No / Unsure 11/22/2019 4:21 PM CDT someone who was confirmed or suspected to have Coronavirus / COVID-19? 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 Medicare & B nt 82 [id number] [place] [phone] AETNA AETNA INDEMNITY [id number] 2013-[place] Indemnity nt documented as of this encounter
--- NOTE | 2020-03-04 18:38 | RAD REPORT ---
EXAM DESCRIPTION: CT - Head Brain Wo Cont - 03/04/2020 6:32 pm CLINICAL HISTORY: MENTAL STATUS CHANGE, transient alteration of awareness COMPARISON: CT head May 2018 TECHNIQUE: Axial 5 mm thick images of the head were obtained without IV contrast. All CT scans are performed using dose optimization technique as appropriate and may include automated exposure control or mA/KV adjustment according to patient size. FINDINGS: No intracranial hemorrhage, mass, edema or shift of mid-line structures. No acute cortical based infarction. No cortical edema or sulcal effacement. Prominent atrophy changes are present. Abhilash tricles are in proportion. No abnormal extra-axial fluid collections. Chronic ischemic change seen in the cerebral white matter. Intracranial findings are not significantly different from comparison. Mastoid air cells and visualized portions of the paranasal sinuses are clear. No acute bony findings. IMPRESSION: Prominent atrophy and mild chronic ischemic change. No acute intracranial finding. No significant change from comparison.
[2020-03-04 18:48] LABS: Absolute Lymphocytes (CBC) 1.8 K/uL (0.7-4.9); Basophils % 0.4 % (0-1.3); Hematocrit 41.4 % (39.6-49.0); Lymphocytes % 10.5 % (15.3-44.8); Protime INR 1.09; RBC Red Blood Cell Count 4.79 M/uL (4.33-5.43)
[2020-03-04 18:53] LABS: ALT/SGPT 24 U/L (12-78); AST/SGOT 16 U/L (15-37); Albumin 3.7 g/dL (3.4-5.0); Alkaline Phosphatase 68 U/L (45-117); BUN Blood Urea Nitrogen 10 mg/dL (7-18); Bicarbonate 26 mmol/L (21-32); Bilirubin Direct 0.3 mg/dL (0-0.2); Bilirubin Total 1.5 mg/dL (0.2-1.0); Creatine Phosphokinase 84 U/L (39-308); Glucose Level 149 mg/dL (74-106); Lipase 80 U/L (73-393); Potassium 3.6 mmol/L (3.5-5.1); Protein, Total 7.4 g/dL (6.4-8.2); Sodium Level 137 mmol/L (136-145); Troponin (Emerg Dept Use Only) < 0.02 ng/mL (0.0-0.045)
--- NOTE | 2020-03-04 19:03 | RAD REPORT ---
EXAM DESCRIPTION: RAD - Chest Single View - 03/04/2020 6:35 pm CLINICAL HISTORY: FEVER COMPARISON: Portable May 2018 TECHNIQUE: AP portable chest image was obtained 03/04/2020 6:35 pm . FINDINGS: Lungs are clear. Heart and vasculature are normal. No measurable pleural effusion and no p neumothorax. No acute bony abnormality seen. No acute aortic findings suspected. IMPRESSION: No acute cardiopulmonary process. No significant change from comparison study.
[2020-03-04] MEDS ORDERED: NA CHLORIDE 0.9% 500 ML ONE ×2 (19:45→22:19)
--- NOTE | 2020-03-04 19:46 | EDPHYS ---
Physician Documentation [facility] Name: Dominic Jacobo Age: 70 yrs Sex: Male : 1950 Arrival Date: 03/04/2020 Time: 17:35 Bed 25 Private MD: ED Physician Osmar Smith HPI: 03/04 17:39 This 70 yrs old Male presents to ER via Unassigned with complaints of Fever, cp Altered Mental Status. 17:39 The patient presents with confusion. cp 17:39 Onset: The symptoms/episode began/occurred today. Possible causes: urinary tract cp infection. Associated signs and symptoms: Pertinent positives: fever of 102 upon arrival by EMS. Patient 1000 mg IV acetaminophen. Current symptoms: In the emergency department the patient's symptoms afebrile, patient remains confused. Patient's baseline: Neuro: alert and fully oriented, Motor: no deficits, Ambulation: walks without assistance, Speech: normal. Historical: - Allergies: 17:42 No Known Allergies; ca1 - Home Meds: 17:42 Tresiba FlexTouch U-100 subcutaneous subcutaneous [Active]; metoprolol succinate 25 mg ca1 oral Tb24 2 tabs once daily [Active]; clopidogrel 75 mg oral tab 1 tab once daily [Active]; rosuvastatin 20 mg oral tab 1 tab once daily [Active]; ezetimibe oral oral 1 tab once daily [Active]; repaglinide 1 mg oral tab 1 tab 4 times per day [Active]; irbesartan 300 mg oral tab 1 tab once daily [Active]; metformin 1,000 mg Oral tr24 2 tabs once daily [Active]; aspirin 81 mg Oral TbEC 1 tab once daily [Active]; tolterodine 4 mg oral cp24 1 cap once daily [Active]; - PMHx: 17:42 Hypertension; Diabetes - NIDDM; High Cholesterol; CAD; ca1 - PSHx: 17:42 Heart Surgery; ca1 - Immunization history:: Adult Immunizations up to date, Pneumococcal vaccine is up to date, Flu vaccine is not up to date. - Social history:: Smoking status: Patient reports the use of cigarette tobacco products, cigars. ROS: 17:39 Constitutional: Negative for fever. cp 17:39 Cardiovascular: Negative for chest pain, palpitations. 17:39 Respiratory: Negative for cough, shortness of breath, wheezing. 17:39 Abdomen/GI: Negative for abdominal pain, nausea, vomiting, and diarrhea. 17:39 Skin: Negative for rash. 17:39 Neuro: Positive for altered mental status, weakness, Negative for headache. 17:39 All other systems are negative. Exam: 17:40 Head/Face: Normocephalic, atraumatic. cp 17:40 Constitutional: The patient appears in no acute distress, alert, awake, non-diaphoretic, non-toxic, well developed, well nourished. 17:40 Eyes: Periorbital structures: appear normal, Pupils: equal, round, and reactive to light and accomodation, Extraocular movements: intact throughout, Sclera: no appreciated abnormality, Lids and lashes: appear normal, bilaterally. 17:40 ENT: External ear(s): are unremarkable, Nose: is normal, Posterior pharynx: is normal, airway is patent, no erythema, no exudate. 17:40 Neck: ROM/movement: is normal, is supple, no meningismus, no nuchal rigidity. 17:40 Chest/axilla: Inspection: normal, Palpation: is normal, no crepitus, no tenderness. 17:40 Cardiovascular: Rate: tachycardic, Rhythm: regular. 17:40 Respiratory: the patient does not display signs of respiratory distress, Respirations: normal, no use of accessory muscles, no retractions, labored breathing, is not present. 17:40 Abdomen/GI: Inspection: abdomen appears normal, Bowel sounds: active, all quadrants, Palpation: abdomen is soft and non-tender, in all quadrants, voluntary guarding, is not appreciated, involuntary guarding, is not appreciated. 17:40 Back: pain, that is mild, of the low back area, CVA tenderness, is absent. 17:40 Skin: no rash present. 17:40 Neuro: Orientation: to person, place, Not oriented to time, Mentation: able to follow commands, slow to respond, Cerebellar function: Romberg testing is negative, Motor: moves all fours, general weakness without focal deficits. 17:45 ECG was reviewed by the Attending Physician. cp Vital Signs: 17:35 BP 135 / 92; Pulse 104; Resp 24 S; Temp 99.9(O); Pulse Ox 95% on R/A; ca1 18:45 BP 122 / 64; Pulse 101; Resp 22 S; Pulse Ox 95% on R/A; ca1 MDM: 17:38 Patient medically screened. cp 18:00 Differential diagnosis: bronchitis, pneumonia UTI, gastroenteritis, sepsis. cp 19:30 Physician consultation: David GALVEZ was contacted at 19:30, regarding admission, cp to the telemetry unit. patient's condition. 19:55 Data reviewed: vital signs, nurses notes, lab test result(s), EKG, radiologic studies, cp plain films, and as a result, I will admit patient, administer antibiotics Rocephin. 19:55 Test interpretation: by ED physician or midlevel provider: ECG, plain radiologic cp studies. Response to treatment: the patient's symptoms have mildly improved after treatment. 03/04 17:38 Order name: Urine Culture cp 03/04 17:38 Order name: Basic Metabolic Panel; Complete Time: 19:00 cp 03/04 19:00 Interpretation: Normal except: GLUC 149. cp 03/04 17:38 Order name: Blood Culture Adult (2) cp 03/04 17:38 Order name: CBC with Diff; Complete Time: 19:00 cp 03/04 19:47 Interpretation: Normal except: WBC 17.0; JACY% 79.7; LYM% 10.5; NEUT A 13.5; MNA 1.5. cp 03/04 17:38 Order name: CPK; Complete Time: 19:00 cp 03/04 17:38 Order name: Lactate; Complete Time: 18:51 cp 03/04 18:52 Interpretation: LAC 1.3; Reviewed. cp 03/04 17:38 Order name: LFT's; Complete Time: 19:00 cp 03/04 17:38 Order name: Lipase; Complete Time: 19:00 cp 03/04 17:38 Order name: Procalcitonin; Complete Time: 19:47 cp 03/04 17:38 Order name: Protime (+inr); Complete Time: 19:00 cp 03/04 17:38 Order name: Ptt, Activated; Complete Time: 19:00 cp 03/04 17:38 Order name: Troponin (emerg Dept Use Only); Complete Time: 19:00 cp 03/04 17:38 Order name: Urine Microscopic Only; Complete Time: 01:10 cp 03/04 17:38 Order name: COVID-19 cp 03/04 17:38 Order name: Influenza Screen (a \T\ B) cp 03/04 17:39 Order name: Urine Culture; Complete Time: 01:10 EDMS 03/04 18:29 Order name: Glucose, Ancillary Testing; Complete Time: 18:33 EDMS 03/04 18:51 Interpretation: GLUC,ANCIL 143; Reviewed. cp 03/04 19:47 Order name: Urine Dipstick--Ancillary (enter results); Complete Time: 01:10 sp 03/04 21:24 Order name: COVID-19/FLU A+B; Complete Time: 01:10 EDMS 03/05 01:39 Order name: Glucose, Ancillary Testing; Complete Time: 01:10 EDMS 03/05 05:45 Order name: CBC with Automated Diff; Complete Time: 01:10 EDMS 03/05 05:58 Order name: Lactate; Complete Time: 01:10 EDMS 03/05 06:34 Order name: Basic Metabolic Panel; Complete Time: 01:10 EDMS 03/05 06:34 Order name: T4 Free; Complete Time: 01:10 EDMS 03/05 06:34 Order name: Magnesium; Complete Time: 01:10 EDMS 03/05 06:34 Order name: Thyroid Stimulating Hormone; Complete Time: 01:10 EDMS 03/05 07:44 Order name: Hemoglobin A1c; Complete Time: 01:10 EDMS 03/05 08:09 Order name: Glucose, Ancillary Testing; Complete Time: 01:10 EDMS 03/05 08:53 Order name: PSA Diagnostic; Complete Time: 01:10 EDMS 03/05 12:40 Order name: Glucose, Ancillary Testing; Complete Time: 01:10 EDMS 03/04 17:38 Order name: CT Head Brain wo Cont; Complete Time: 18:51 cp 03/04 17:38 Order name: Cath; Complete Time: 19:20 cp 03/04 17:38 Order name: Chest Single View XRAY; Complete Time: 19:47 cp 03/04 17:38 Order name: Accucheck; Complete Time: 18:21 cp 03/04 19:19 Order name: CT Abd/Pelvis - IV Contrast Only cp 03/04 21:17 Order name: CT; Complete Time: 01:10 EDMS 03/05 15:00 Order name: Potassium; Complete Time: 01:10 EDMS 03/05 15:00 Order name: Magnesium; Complete Time: 01:10 EDMS 03/05 16:41 Order name: US; Complete Time: :10 EDMS 03/05 16:45 Order name: Glucose, Ancillary Testing; Complete Time: :10 EDMS 03/06 05:46 Order name: Basic Metabolic Panel; Complete Time: 01:10 EDMS 03/06 05:46 Order name: Magnesium; Complete Time: 01:10 EDMS 03/06 06:20 Order name: CBC with Automated Diff; Complete Time: 01:10 EDMS 03/06 06:30 Order name: Glucose, Ancillary Testing; Complete Time: :10 EDMS 03/06 08:46 Order name: Glucose, Ancillary Testing; Complete Time: :10 EDMS 03/06 12:12 Order name: Glucose, Ancillary Testing; Complete Time: :10 EDMS 03/06 17:17 Order name: Glucose, Ancillary Testing; Complete Time: :10 EDMS 03/06 20:18 Order name: Glucose, Ancillary Testing; Complete Time: 01:10 EDMS 03/07 05:05 Order name: Basic Metabolic Panel; Complete Time: 01:10 EDMS 03/07 05:05 Order name: Magnesium; Complete Time: 01:10 EDMS 03/07 05:08 Order name: CBC with Automated Diff; Complete Time: 01:10 EDMS 03/07 08:03 Order name: Glucose, Ancillary Testing; Complete Time: 01:10 EDMS 03/07 12:11 Order name: Glucose, Ancillary Testing; Complete Time: 01:10 EDMS 03/07 17:22 Order name: Glucose, Ancillary Testing; Complete Time: 01:10 EDMS 03/07 22:18 Order name: Glucose, Ancillary Testing; Complete Time: 01:10 EDMS 03/08 05:38 Order name: Basic Metabolic Panel EDMS 03/08 08:15 Order name: Glucose, Ancillary Testing EDMS 03/08 13:30 Order name: Glucose, Ancillary Testing EDMS 03/08 16:21 Order name: Glucose, Ancillary Testing EDMS 03/04 17:38 Order name: Cardiac monitoring; Complete Time: 17:48 cp 03/04 17:38 Order name: EKG - Nurse/Tech; Complete Time: 17:44 cp 03/04 17:38 Order name: IV Saline Lock - Large Bore; Complete Time: 17:48 03/04 17:38 Order name: Labs collected and sent; Complete Time: 18:21 cp 03/04 17:38 Order name: O2 Per Protocol; Complete Time: 17:48 cp 03/04 17:38 Order name: O2 Sat Monitoring; Complete Time: 17:48 03/04 17:38 Order name: Urine Dipstick-Ancillary (obtain specimen); Complete Time: 19:50 cp EC:45 Rate is 104 beats/min. Rhythm is regular. IL interval is normal. QRS interval is cp normal. T waves are Inverted in lead aVL. Interpreted by me. Reviewed by me. Administered Medications: 19:38 Drug: NS 0.9% 500 ml Route: IV; Rate: 500 ml/hr; Site: right forearm; ll2 20:35 Follow up: Response: No adverse reaction; IV Status: Completed infusion; IV Intake: ll2 500ml 19:49 Drug: Rocephin 1 grams Route: IV; Rate: calculated rate; Site: right forearm; [facility] 03/06 21:43 Follow up: Response: No adverse reaction; IV Status: Completed infusion 03/04 22:10 Drug: NS 0.9% 500 ml Route: IV; Rate: ml/hr; Site: right forearm; ll2 03/06 21:43 Follow up: Response: No adverse reaction; IV Status: Completed infusion Disposition: 03/04 20:00 Chart complete. 03/09 17:47 Co-signature as Attending Physician, Osmar Smith MD. rn Disposition: 03/04/20 19:46 Hospitalization ordered by Solo Abarca for Inpatient Admission. Preliminary diagnosis are Urinary tract infection, site not specified, Weakness, Altered mental status, unspecified. - Bed requested for Telemetry/MedSurg (Inpatient). - Status is Inpatient Admission. sg - Condition is Stable. - Problem is new. - Symptoms have improved. Signatures: Dispatcher [employer] Melissa Ghotra RN RN dw Gay, Steven, RN RN sg Nieto, Roman, MD MD rn Page, Corey, PA PA cp Garcia, Cindy, RN RN Jessica Loya RN RN [facility] Rachana Wilkerson RN RN [facility] Desiree Daily RN Corrections: (The following items were deleted from the chart) 03/04 19:47 19:00 Normal except: WBC 17.0; JACY% 79.7; LYM% 10.5; NEUT A 13.5. cp cp 22:00 19:46 Hospitalization Ordered by Solo Abarca DO for Inpatient Admission. Preliminary cg diagnosis is Urinary tract infection, site not specified; Weakness; Altered mental status, unspecified. Bed requested for Telemetry/MedSurg (Inpatient). Status is Inpatient Admission. Condition is Stable. Problem is new. Symptoms have improved. cp 03/05 09:44 03/04 17:40 The patient presents with confusion, cp cp 03/08 20:01 03/04 22:00 03/04/2020 19:46 Hospitalization Ordered by Solo Abarca DO for Inpatient dw Admission. Preliminary diagnosis is Urinary tract infection, site not specified; Weakness; Altered mental status, unspecified. Bed requested for [facility] ER HOLD. Status is Inpatient Admission. Condition is Stable. Problem is new. Symptoms have improved. 03/08 21:12 20:01 03/04/2020 19:46 Hospitalization Ordered by Solo Abarca DO for Inpatient sg Admission. Preliminary diagnosis is Urinary tract infection, site not specified; Weakness; Altered mental status, unspecified. Bed requested for Telemetry/MedSurg (Inpatient). Status is Inpatient Admission. Condition is Stable. Problem is new. Symptoms have improved. dw
--- NOTE | 2020-03-04 19:46 | ER ---
Nurse's Notes [facility] Name: Dominic Jacobo Age: 70 yrs Sex: Male : 1950 Arrival Date: 03/04/2020 Time: 17:35 Bed 25 Private MD: Diagnosis: Urinary tract infection, site not specified;Weakness;Altered mental status, unspecified Presentation: 03/04 17:35 Chief complaint: EMS states: family called in for AMS started today, suspected UTI. ca1 Upon arrival at scene, temp was 102.8F, Tylenol 1GM IV given. Oriented to person and place. Coronavirus screen: Client denies travel out of the [place] in the last 14 days. fever, Client presents with at least one sign or symptom that may indicate coronavirus-19. Standard/surgical mask placed on the client. Provider contacted for isolation considerations. Ebola Screen: Patient negative for fever greater than or equal to 101.5 degrees Fahrenheit, and additional compatible Ebola Virus Disease symptoms Patient denies exposure to infectious person. Patient denies travel to an Ebola-affected area in the 21 days before illness onset. No symptoms or risks identified at this time. Initial Sepsis Screen: Does the patient meet any 2 criteria? RR > 20 per min. HR > 90 bpm. Yes Does the patient have a suspected source of infection? Yes: Dysuria/Frequency/Urgency/UTI If YES to both, name of provider notified: Prateek WHITEHEAD. Risk Assessment: Do you want to hurt yourself or someone else? Patient reports no desire to harm self or others. Onset of symptoms was March 04, 2020. 17:35 Acuity: NICOL 2 ca1 17:35 Method Of Arrival: EMS: [facility] ca1 Historical: - Allergies: 17:42 No Known Allergies; ca1 - Home Meds: 17:42 Tresiba FlexTouch U-100 subcutaneous subcutaneous [Active]; metoprolol succinate 25 mg ca1 oral Tb24 2 tabs once daily [Active]; clopidogrel 75 mg oral tab 1 tab once daily [Active]; rosuvastatin 20 mg oral tab 1 tab once daily [Active]; ezetimibe oral oral 1 tab once daily [Active]; repaglinide 1 mg oral tab 1 tab 4 times per day [Active]; irbesartan 300 mg oral tab 1 tab once daily [Active]; metformin 1,000 mg Oral tr24 2 tabs once daily [Active]; aspirin 81 mg Oral TbEC 1 tab once daily [Active]; tolterodine 4 mg oral cp24 1 cap once daily [Active]; - PMHx: 17:42 Hypertension; Diabetes - NIDDM; High Cholesterol; CAD; ca1 - PSHx: 17:42 Heart Surgery; ca1 - Immunization history:: Adult Immunizations up to date, Pneumococcal vaccine is up to date, Flu vaccine is not up to date. - Social history:: Smoking status: Patient reports the use of cigarette tobacco products, cigars. Screenin:43 Abuse screen: Denies threats or abuse. Denies injuries from another. Nutritional ca1 screening: No deficits noted. Tuberculosis screening: No symptoms or risk factors identified. Fall Risk IV access (20 points). Assessment: 17:43 General: Appears in no apparent distress. comfortable, Behavior is calm, cooperative, ca1 appropriate for age. Pain: Denies pain. Neuro: Level of Consciousness is awake, alert, obeys commands, confused, Oriented to person, place. Cardiovascular: Heart tones S1 S2 present Capillary refill < 3 seconds Patient's skin is warm and dry. Rhythm is sinus tachycardia. Respiratory: Airway is patent Respiratory effort is even, unlabored, Respiratory pattern is regular, symmetrical, Breath sounds are clear bilaterally. GI: Abdomen is round non-distended, Bowel sounds present X 4 quads. Abd is soft and non tender X 4 quads. : Reports urgency, urinary frequency. EENT: No signs and/or symptoms were reported regarding the EENT system. Derm: Skin is intact, is healthy with good turgor. Musculoskeletal: Circulation, motion, and sensation intact. Capillary refill < 3 seconds. 18:45 Reassessment: Patient appears in no apparent distress at this time. Patient and/or ca1 family updated on plan of care and expected duration. Pain level reassessed. Patient is alert, oriented x 3, equal unlabored respirations, skin warm/dry/pink. Son at bedside, states, "this happened 3 years ago, he had a very bad UTI. He stayed in the hospital for long. Normally, he is oriented and today he was just not himself". Vital Signs: 17:35 BP 135 / 92; Pulse 104; Resp 24 S; Temp 99.9(O); Pulse Ox 95% on R/A; ca1 18:45 BP 122 / 64; Pulse 101; Resp 22 S; Pulse Ox 95% on R/A; ca1 ED Course: 17:35 Patient arrived in ED. ca1 17:36 Prateek Gonzalez PA is PHCP. cp 17:36 Osmar Smith MD is Attending Physician. cp 17:39 Triage completed. ca1 17:42 Arm band placed on right wrist. EKG completed in triage. Results shown to MD. ca1 17:43 Patient has correct armband on for positive identification. Placed in gown. Bed in low ca1 position. Call light in reach. Side rails up X2. case monitor on. Pulse ox on. NIBP on. 17:44 EKG done, by ED staff, reviewed by Prateek WHITEHEAD. jb1 17:48 Jessica Loya, RN is Primary Nurse. ca1 18:17 Initial lab(s) drawn, by me, sent to lab. Second set of blood cultures drawn by me. aa5 18:17 Inserted saline lock: 20 gauge in left hand, using aseptic technique. aa5 18:32 CT Head Brain wo Cont In Process Unspecified. EDMS 18:35 Chest Single View XRAY In Process Unspecified. EDMS 19:00 Straight cath inserted, using sterile technique, 18 Fr. Returned Very little amount of ca1 urine, only in the tube. Cath remained in place for now pending urine output. Notified provider. Patient tolerated well. 19:45 Solo Abarca DO is Hospitalizing Provider. cp 19:50 Patient tolerated Cath taken out. Output at 30ML. ca1 03/06 19:30 No provider procedures requiring assistance completed. Patient admitted, IV remains in place. 03/08 20:41 Primary Nurse role handed off by Jessica Loya, RN sg Administered Medications: 03/04 19:38 Drug: NS 0.9% 500 ml Route: IV; Rate: 500 ml/hr; Site: right forearm; ll2 20:35 Follow up: Response: No adverse reaction; IV Status: Completed infusion; IV Intake: ll2 500ml 19:49 Drug: Rocephin 1 grams Route: IV; Rate: calculated rate; Site: right forearm; ca1 03/06 21:43 Follow up: Response: No adverse reaction; IV Status: Completed infusion 03/04 22:10 Drug: NS 0.9% 500 ml Route: IV; Rate: ml/hr; Site: right forearm; ll2 03/06 21:43 Follow up: Response: No adverse reaction; IV Status: Completed infusion wh Intake: 03/04 20:35 IV: 500ml; Total: 500ml. ll2 Outcome: 19:46 Decision to Hospitalize by Provider. cp 03/06 19:30 Admitted to ER Hold. Please see [facility] for further documentation. Condition: stable Instructed on the need for admit. 03/08 21:12 Patient left the ED. sg Signatures: Dispatcher [employer] EDMS Johanny Misha [email or web address] Earnest Wood RN RN sg Jaylin Addison RN RN aa5 Prateek Gonzalez PA PA cp Desiree Daily RN RN Jessica Loya RN RN ca1 Rachana Wilkerson RN RN ll2 Corrections: (The following items were deleted from the chart) 03/04 18:33 18:33 Reassessment: Patient appears in no apparent distress at this time. Patient ca1 and/or family updated on plan of care and expected duration. Pain level reassessed. Patient is alert, oriented x 3, equal unlabored respirations, skin warm/dry/pink. ca1
[2020-03-04] MEDS ORDERED: CEFTRIAXONE/SWI 1gm 1 GM/10 ML SYR ONE (20:01)
[2020-03-04 20:07] LABS: Urine Blood 3+ (NEG); Urine Glucose NEGATIVE (NEG); Urine Protein 3+ (NEG); Urine Specific Gravity >1.030 (1.005-1.030); Urine pH 5.5 (5.0-7.0)
[2020-03-04 21:16] LABS: Urine Bacteria 20-50 /HPF (NONE SEEN)
--- NOTE | 2020-03-04 21:16 | RAD REPORT ---
EXAM DESCRIPTION: CT - Abdomen Pelvis W Contrast - 03/04/2020 8:30 pm CLINICAL HISTORY: back pain, abdominal pain COMPARISON: CT ABD PELVIS W CONTRAST dated 08/22/2008 TECHNIQUE: Biphasic, helical CT imaging of the abdomen and pelvis was performed following 100 ml non -ionic IV contrast. No oral contrast administered. All CT scans are performed using dose optimization technique as appropriate and may include automated exposure control or mA/KV adjustment according to patient size. FINDINGS: No acute lung base finding. No cardiomegaly or pericardial effusion. The liver, spleen, and pancreas show no suspicious findings. Cholecystectomy clips are present. No bi liary tree dilatation. Symmetric renal function is seen with no hydronephrosis or suspicious renal mass. No pyelonephritis o r acute parenchymal process. Two small solid and fatty masses of the left adrenal gland have not broderick ged since 2008. Urinary bladder is fully contracted. No bladder calculi. Bladder barnhart are thickened even when adjust ing for contraction. There is stranding in the surrounding fat. Stranding is present along the margin s of the prostate gland as well. In the upper central prostate there is a 2.1 centimeter low-density focus not seen on the far remote study. No dilated bowel loops or bowel wall thickening. Diverticulosis is present without diverticulitis. No appendicitis. No free air, free fluid or pneumatosis. No mass or bulky lymphadenopathy. Small midli ne supraumbilical fat only hernia present. Fat extends into the origin of each inguinal canal. No suspicious bony findings. Patient has advanced disc and bony degenerative changes in the mid and lower lumbar spine. No acute vascular finding. IMPRESSION: Cystitis and prostatitis findings are present, and there is a suspected 2 centimeter upp er central prostate abscess.
[2020-03-04 21:18] LABS: Urine RBC 20-50 /HPF (NONE SEEN)
[2020-03-04 21:23] LABS: SARS-COV-2 RT PCR NEGATIVE (NEGATIVE)
--- NOTE | 2020-03-04 21:25 | P.HP ---
Certification for Inpatient Patient admitted to: Inpatient With expected LOS: >2 Midnights Patient will require the following post-hospital care: None Practitioner: I am a practitioner with admitting privileges, knowledge of patient current condition, hospital course, and medical plan of care. Services: Services provided to patient in accordance with Admission requirements found in Title 42 Section 412.3 of the Code of Federal Regulations <David Sanchez - Last Filed: 03/04/20 21:21> Patient admitted to: Inpatient <Solo Abarca - Last Filed: 03/05/20 07:54> Patient History Date of Service: 03/04/20 Primary Care Provider: Dr. Valenzuela Reason for admission: UTI, AMS History of Present Illness: 70-year-old male with history of diabetes mellitus type 2, hypertension, hyperlipidemia presents the emergency department for fever, altered mental status. Family reports that in the past. Patient is presented with similar symptoms and was diagnosed with urinary tract infection. Patient was evaluated in the emergency department found to have elevated white blood cell count 17 with a left shift lactic acid within normal limits pro calcitonin less than 0.05, concentrated urine with blood, nitrate positive, 20-50 bacteria. Patient started on Rocephin in the emergency department, does not appear septic at this time. Patient currently alert, oriented x2. ED provider wishes to admit patient for further evaluation and management. - Past Medical/Surgical History Diabetic: Yes -: Diabetes mellitus type 2 -: Hypertension -: Coronary artery disease -: Hyperlipidemia -: CABG -: bilateral knee sx -: cholecystectomy Psychosocial/ Personal History: Patient lives at home with family. - Family History Family History: Reviewed- Non-Contributory - Social History Smoking Status: Never smoker Alcohol use: No CD- Drugs: No Caffeine use: Yes Place of Residence: Home <David Sanchez - Last Filed: 03/04/20 21:21> Date of Service: 03/05/20 Home medications list reviewed: Yes <Solo Abarca - Last Filed: 03/05/20 07:54> Allergies zolpidem [From Ambien] Adverse Reaction (Verified 05/27/18 21:13) hallucinates Home Medications: Amitriptyline [Elavil*] 25 mg PO BEDTIME tab 06/11/18 Apixaban [Eliquis *] 2.5 mg PO BID tablet 06/11/18 Aspirin Chewable [Aspirin Chewable*] 81 mg PO DAILY tab.chew 06/11/18 Bisacodyl [Dulcolax*] 10 mg TX DAILY PRN supp 06/11/18 Clopidogrel Bisulfate [Plavix*] 75 mg PO DAILY tablet 06/11/18 Cyanocobalamin [Vitamin B-12*] 2,000 mcg PO DAILY tab 06/11/18 Docusate/Senna [Senokot-S*] 2 tab PO BEDTIME tab 06/11/18 Enema, Fleet Adult [Fleet Enema Adult*] 133 ml TX DAILY PRN btl 06/11/18 Ezetimibe [Zetia*] 10 mg PO DAILY tab 06/11/18 Insulin -Regular Human [Novolin -R*] See Protocol SQ ACHS ml 06/11/18 Irbesartan [Avapro*] 150 mg PO DAILY tab 06/11/18 Iron/FA/Vit B-Com W/C [Hemocyte Plus*] 1 tab PO DAILY WITH BREAKFAST tab 06/11/18 Lidocaine 4% Patch [Lidoderm 5% Patch*] 1 patch TOP DAILY patch 06/11/18 Magnesium Oxide [Mag 0X*] 400 mg PO BID tab 06/11/18 Melatonin [Melatonin*] 3 mg PO BEDTIME PRN PRN tablet 06/11/18 Metoprolol Succinate [Toprol Xl*] 25 mg PO BID 6AM 6PM tab 06/11/18 Rosuvastatin [Crestor*] 20 mg PO BEDTIME tab 06/11/18 Tolterodine Tartrate [Detrol LA*] 4 mg PO DAILY cap 06/11/18 Tresiba 50 Units 50 units SQ BEDTIME 06/11/18 traMADol HCL [Ultram*] 50 mg PO Q4HR PRN tab 06/11/18 Review of Systems is unable to be obtained <David Sanchez - Last Filed: 03/04/20 21:21> Physical Examination - Physical Exam General: Alert, In no apparent distress, Oriented x2 HEENT: Atraumatic, PERRLA, Mucous membr. moist/pink Neck: Supple, 2+ carotid pulse no bruit, No LAD Respiratory: Clear to auscultation bilaterally, Normal air movement Cardiovascular: Regular rate/rhythm, Normal S1 S2 Capillary refill: <2 Seconds Gastrointestinal: Normal bowel sounds, No tenderness Musculoskeletal: No tenderness Integumentary: No rashes Neurological: Normal speech, Normal strength at 5/5 x4 extr, Normal tone, Normal affect - Studies Laboratory Data (last 24 hrs) 03/04/20 18:17: PT 12.8 H, INR 1.09, APTT 27.0 03/04/20 18:17: WBC 17.0 H, Hgb 14.1, Hct 41.4, Plt Count 197 03/04/20 18:17: Sodium 137, Potassium 3.6, BUN 10, Creatinine 0.82, Glucose 149 H, Total Bilirubin 1.5 H, AST 16, ALT 24, Alkaline Phosphatase 68, Lipase 80 <David Sanchez - Last Filed: 03/04/20 21:21> - Studies Laboratory Data (last 24 hrs) 03/04/20 18:17: PT 12.8 H, INR 1.09, APTT 27.0 03/04/20 18:17: WBC 17.0 H, Hgb 14.1, Hct 41.4, Plt Count 197 03/04/20 18:17: Sodium 137, Potassium 3.6, BUN 10, Creatinine 0.82, Glucose 149 H, Total Bilirubin 1.5 H, AST 16, ALT 24, Alkaline Phosphatase 68, Lipase 80 <Solo Abarca - Last Filed: 03/05/20 07:54> Assessment and Plan - Plan Assessment Toxic metabolic encephalopathy secondary to urinary tract infection Diabetes mellitus type 2 Hypertension Hyperlipidemia CAD Plan Toxic metabolic encephalopathy secondary to urinary tract infection: Continue with IV hydration overnight, IV Rocephin, blood in urine cultures collected, will need to follow these. DVT prophylaxis Lovenox 40 mg subcutaneous once daily. Diabetes mellitus type 2: A.c. HS Accu-Cheks scale insulin therapy. A1c with morning labs. Hypertension: Obtain and continue home medications Hyperlipidemia: Obtain and continue home medications CAD: Obtain and continue home medications Discharge Plan: Home Plan to discharge in: 48 Hours - Advance Directives Does patient have a Living Will: No Does patient have a Durable POA for Healthcare: No - Code Status/Comfort Care Code Status Assessed: Yes (Full code) Critical Care: No Time Spent Managing Pts Care (In Minutes): 55 <David Sanchez - Last Filed: 03/04/20 21:21> - Plan Case discussed in detail with nurse practitioner. Agree with plan of care. Blood, urine cultures obtained. Continue antibiotic therapy and IV fluids. For review and restart home medication. Please see note for details. Anticipate improvement over the next 48-72 hr. <Solo Abarca - Last Filed: 03/05/20 07:54>
[2020-03-05] MEDS: NA CHLORIDE 0.9% 1,000 ML IV SCH ×3 (01:07→21:07)
[2020-03-05] MEDS: INSULIN -REGULAR HUMAN 50 UNIT/0.5 ML ML SQ SCH ×5 (01:07→21:00)
[2020-03-05] MEDS ORDERED: ONDANSETRON 4 MG/2 ML VIAL IV PRN (01:07)
[2020-03-05] MEDS ORDERED: ACETAMINOPHEN 500 MG TAB PO PRN (01:07)
[2020-03-05] MEDS ORDERED: NA CHLORIDE 0.9% 1,000 ML ONE ×2 (01:37→12:35)
[2020-03-05 03:01] VITALS: BMI 30.2
[2020-03-05 05:43] LABS: Absolute Lymphocytes (CBC) 1.6 K/uL (0.7-4.9); Basophils % 0.6 % (0-1.3); Hematocrit 32.7 % (39.6-49.0); Lymphocytes % 12.7 % (15.3-44.8); MPV 9.1 fL (7.6-11.3); RBC Red Blood Cell Count 3.64 M/uL (4.33-5.43)
[2020-03-05 06:04] LABS: BUN Blood Urea Nitrogen 7 mg/dL (7-18); Bicarbonate 19 mmol/L (21-32); Glucose Level 118 mg/dL (74-106); Sodium Level 139 mmol/L (136-145); Thyroid Stimulating Hormone 0.828 uIU/mL (0.360-3.740)
[2020-03-05 06:34] LABS: Magnesium 1.5 mg/dL (1.8-2.4)
[2020-03-05] MEDS ORDERED: Magnesium Sulfate 2gm IVPB 2 G/50 ML BAG IV ONE ×2 (07:00→10:16)
[2020-03-05] MEDS ORDERED: POTASSIUM 25 MEQ EFFERV TAB PO ONE (08:00)
--- NOTE | 2020-03-05 08:00 | P.PN ---
Subjective Date of Service: 03/05/20 Primary Care Provider: Dr. Valenzuela Chief Complaint: UTI, AMS Subjective: Improving (No significant distress. Patient alert. Oriented x1,But appropriate.) Physical Examination - Vital Signs Temperature: 98.3 F Blood Pressure: 123/67 Pulse: 87 Respirations: 16 Pulse Ox (%): 94 - Physical Exam General: Alert, Oriented x1, Cooperative, Confused HEENT: Atraumatic Neck: Supple Respiratory: Clear to auscultation bilaterally, Normal air movement Cardiovascular: Normal pulses, Regular rate/rhythm Gastrointestinal: Normal bowel sounds, No tenderness, No masses, No rebound, No guarding Musculoskeletal: No erythema, No tenderness, No warmth Neurological: Normal speech, Normal strength at 5/5 x4 extr, Normal tone - Studies Laboratory Data (last 24 hrs) 03/04/20 18:17: PT 12.8 H, INR 1.09, APTT 27.0 03/04/20 18:17: WBC 17.0 H, Hgb 14.1, Hct 41.4, Plt Count 197 03/04/20 18:17: Sodium 137, Potassium 3.6, BUN 10, Creatinine 0.82, Glucose 149 H, Total Bilirubin 1.5 H, AST 16, ALT 24, Alkaline Phosphatase 68, Lipase 80 Medications List Reviewed: Yes Assessment & Plan Discharge Plan: Home Plan to discharge in: 48 Hours Physician Review Additional Text: Assessment Toxic metabolic encephalopathy secondary to urinary tract infection with CT showing prostatitis and suspected 2 cm upper central prostate abscess Diabetes mellitus type 2 Hypertension Hyperlipidemia CAD Plan Toxic metabolic encephalopathy secondary to urinary tract infection with CT showing prostatitis and suspected 2 cm upper central prostate abscess: Patient stable this time. CT scan reviewed. Will obtain PSA. Pro calcitonin negative. White count improved. Continue IV antibiotic therapy. Blood and urine culture pending. Will consult Urology for further recommendations. Will monitor this closely. Patient may require ultrasound or repeat CT scan to further assess if no significant change in status or worsening. Await recommendations by urology. Continue DVT prophylaxis. Will review and restart home medication. Anticipate improvement over the next 72 hr. I will turn the service over to the hospitalist team-Dr. Mathews tomorrow. I will go over plan of care with him. Diabetes mellitus type 2: Continue Accu-Cheks and sliding scale. Will obtain A1c. A.c. HS Accu-Cheks scale insulin therapy. A1c 7.4. Will obtain and review home medication. Restart medications after reviewed. Hypertension: Obtain and restart home medication. Will start metoprolol for now. Hyperlipidemia: Obtain and restart home medication. CAD: Obtain and restart home medication. Time Spent Managing Pts Care (In Minutes): 55
[2020-03-05] MEDS ORDERED: CEFTRIAXONE/SWI 1gm 1 GM/10 ML SYR IV SCH (09:00)
[2020-03-05] MEDS: LACTOBACILLUS/ACIDOPHILUS TAB PO SCH ×2 (09:00→21:00)
[2020-03-05] MEDS ORDERED: CEFTRIAXONE 1 GM/NS 50 ML 1 GM/50 ML BAG IV SCH (09:00)
[2020-03-05] MEDS: ENOXAPARIN 40 MG/0.4 ML SQ SCH (09:00)
[2020-03-05] MEDS: CIPROFLOXACIN 400mg IV 400 MG/200 ML BAG IV SCH ×2 (09:00→21:00)
[2020-03-05] MEDS ORDERED: POTASSIUM 25 MEQ EFFERV TAB ONE (10:16)
[2020-03-05] MEDS ORDERED: ENOXAPARIN 40 MG/0.4 ML SQ ONE (10:16)
[2020-03-05] MEDS ORDERED: CIPROFLOXACIN 400mg IV 400 MG/200 ML BAG IV ONE (10:16)
[2020-03-05 14:50] LABS: Magnesium 2.5 mg/dL (1.8-2.4); Potassium 3.7 mmol/L (3.5-5.1)
--- NOTE | 2020-03-05 16:40 | RAD REPORT ---
EXAM DESCRIPTION: US - Urinary Bladder - 03/05/2020 4:24 pm CLINICAL HISTORY: evaluate for urinary retention Pelvic pain COMPARISON: No comparisons TECHNIQUE: Real-time sonographic evaluation of the urinary bladder with volume measurements was perf ormed. FINDINGS: Urinary bladder is decompressed nearly completely with a bladder volume of 3 mL seen.
[2020-03-05] MEDS ORDERED: INFLUENZA VACCINE (for 3y+) 0.5 ML DOSE IMVAC ONE (17:00)
[2020-03-05] MEDS: ASPIRIN EC 81 MG TAB PO SCH (17:00)
[2020-03-05] MEDS ORDERED: METOPROLOL TAR 25 MG TAB ONE (17:39)
[2020-03-05] MEDS ORDERED: ASPIRIN EC 81 MG TAB PO ONE (17:39)
[2020-03-05] MEDS: METOPROLOL TAR 25 MG TAB PO SCH (18:00)
[2020-03-05] MEDS: TAMSULOSIN 0.4 MG SR CAP PO SCH (21:00)
[2020-03-06] MEDS ORDERED: NA CHLORIDE 0.9% 1,000 ML ONE ×3 (05:43→18:10)
[2020-03-06 05:44] LABS: BUN Blood Urea Nitrogen 9 mg/dL (7-18); Bicarbonate 26 mmol/L (21-32); Glucose Level 197 mg/dL (74-106); Magnesium 2.4 mg/dL (1.8-2.4); Potassium 3.8 mmol/L (3.5-5.1); Sodium Level 136 mmol/L (136-145)
[2020-03-06] MEDS: METOPROLOL TAR 25 MG TAB PO SCH ×2 (06:00→18:00)
[2020-03-06 06:19] LABS: Absolute Lymphocytes (CBC) 1.4 K/uL (0.7-4.9); Basophils % 0.6 % (0-1.3); Hematocrit 40.7 % (39.6-49.0); Lymphocytes % 12.4 % (15.3-44.8); MPV 9.1 fL (7.6-11.3); RBC Red Blood Cell Count 4.64 M/uL (4.33-5.43)
[2020-03-06] MEDS: NA CHLORIDE 0.9% 1,000 ML IV SCH ×2 (07:07→17:07)
[2020-03-06] MEDS: CIPROFLOXACIN 400mg IV 400 MG/200 ML BAG IV SCH ×2 (07:10→21:00)
[2020-03-06] MEDS ORDERED: METOPROLOL TAR 25 MG TAB ONE ×2 (07:10→18:10)
[2020-03-06] MEDS ORDERED: CIPROFLOXACIN 400mg IV 400 MG/200 ML BAG IV ONE ×2 (07:10→21:03)
[2020-03-06] MEDS: INSULIN -REGULAR HUMAN 50 UNIT/0.5 ML ML SQ SCH ×4 (07:30→21:00)
[2020-03-06] MEDS ORDERED: ASPIRIN EC 81 MG TAB PO ONE (08:13)
[2020-03-06] MEDS ORDERED: TAMSULOSIN 0.4 MG SR CAP ONE ×2 (08:13→21:03)
[2020-03-06] MEDS ORDERED: POTASSIUM CL SA 10 MEQ TAB PO ONE ×2 (08:14→09:00)
[2020-03-06] MEDS ORDERED: ENOXAPARIN 40 MG/0.4 ML SQ ONE (08:14)
[2020-03-06] MEDS: ENOXAPARIN 40 MG/0.4 ML SQ SCH (08:21)
[2020-03-06] MEDS: ASPIRIN EC 81 MG TAB PO SCH (08:21)
[2020-03-06] MEDS: LACTOBACILLUS/ACIDOPHILUS TAB PO SCH ×3 (08:35→21:00)
[2020-03-06] MEDS ORDERED: INSULIN -REGULAR HUMAN 50 UNIT/0.5 ML ML ONE ×4 (09:15→21:43)
[2020-03-06] MEDS ORDERED: ACETAMINOPHEN 500 MG TAB ONE (09:54)
--- NOTE | 2020-03-06 11:29 | EKG ---
Test Date: 2020-03-04 Test Time: 17:36:18 Beauty Therapist: FINA MEASUREMENT RESULTS: Intervals: Rate: 104 ME: 136 QRSD: 90 QT: 348 QTc: 457 [place]: P: 47 ME: 136 QRS: -42 T: 90 INTERPRETIVE STATEMENTS: Sinus tachycardia Left axis deviation ST & T wave abnormality, consider lateral ischemia Abnormal ECG Compared to ECG 05/27/2018 15:56:06 Left-axis deviation now present ST (T wave) deviation still present Possible ischemia still present Electronically Signed On 03-06-20 11:27:20 NET MAKING SUPERVISOR by Florian Mclean
[2020-03-06] MEDS: LIDOCAINE 4% PATCH TOP SCH (14:41)
[2020-03-06] MEDS: NICOTINE 21 MG/PAT TD SCH (14:41)
[2020-03-06] MEDS ORDERED: NICOTINE 21 MG/PAT TD ONE (14:54)
--- NOTE | 2020-03-06 14:54 | ECHO ---
HEIGHT: 6 ft 0 in WEIGHT: 223 lb 0 oz DATE OF STUDY: 03/06/[address]: Solo Abarca DO 2-DIMENSIONAL: YES M.MODE: YES DOPPLER: YES COLOR FLOW: YES TDS: PORTABLE: DEFINITY: BUBBLE STUDY: DIAGNOSIS: HYPERTENSION CARDIAC HISTORY: CATHERIZATION: YES SURGERY: YES PROSTHETIC VALVE: NO PACEMAKER: NO MEASUREMENTS (cm) DIASTOLIC (NORMALS) SYSTOLIC (NORMALS) IVSd 1.3 (0.6-1.2) LA Diam 4.0 (1.9-4.0) LVEF 55% LVIDd 4.5 (3.5-5.7) LVIDs 3.2 (2.0-3.5) %FS 28% LVPWd 1.3 (0.6-1.2) Ao Diam 2.9 (2.0-3.7) 2 DIMENSIONAL ASSESSMENT: RIGHT ATRIUM: NORMAL LEFT ATRIUM: NORMAL RIGHT VENTRICLE: NORMAL LEFT VENTRICLE: LEFT VENTRICULAR HYPERTROPHY TRICUSPID VALVE: NORMAL MITRAL VALVE: MITRAL ANNULAR CALCIFICATION PULMONIC VALVE: NORMAL AORTIC VALVE: SCLEROSIS. PERICARDIAL EFFUSION: NONE AORTIC ROOT: NORMAL LEFT VENTRICULAR WALL MOTION: NORMAL DOPPLER/COLOR FLOW: NORMAL COMMENTS: NORMAL LEFT VENTRICULAR EJECTION FRACTION 55%. LEFT VENTRICULAR HYPERTROPHY. MITRAL ANNULAR CALCIFICATION. AORTIC SCLEROSIS - NO STENOSIS. TECHNOLOGIST: NIYAH CULLEN
[2020-03-06] MEDS ORDERED: LIDOCAINE 4% PATCH ONE (14:55)
--- NOTE | 2020-03-06 15:47 | CON ---
History Of Present Illness: I was consulted for urinary tract infection and prostatitis. The patien t has significant past medical history of diabetes mellitus, hypertension, hyperlipidemia. Coming in to the hospital with altered mental status and fevers. The patient has in the past also had multipl e times of urinary tract infection for the last 5 years. He has been having problems with prostate f or last 5 years also. Past Medical History: As per HPI. Social History: Nonsmoker, nondrinker. Family History: Noncontributory. Medications: The patient is currently being treated with Cipro. See MAR for other medications. Allergies: AMBIEN. Review of Systems: A 10-point review was performed. Physical Examination: General: This is a 70-year-old male, lying in bed, not in any acute cardiopulmonary distress. Vital Signs: Temperature 98.2, pulse 77, respirations 16, blood pressure 134/68. HEENT: Unremarkable. Neck: Supple. Lungs: Clear to auscultation. Heart: S1, S2. Regular. Abdomen: Soft, nontender. Bowel sounds present. Extremities: Trace edema. Laboratory Data: WBC 17,000 down to 11,000, hemoglobin 13.4, platelets are 164. Chemistry shows sod ium 136, potassium 3.8, chloride 106, bicarb 26, BUN 9, creatinine 0.7, glucose is 177. Blood cultur es, no growth. Urine cultures showing more than 100,000 gram-negative rods. Abdominal and pelvis CT scan shows the patient has cystitis and prostatitis and a suspected 2 cm central prostate abscess. Chest x-ray done on March 04 shows no acute pulmonary process. Bladder ultrasound done on March 05 shows urinary bladder is decompressed nearly completely with bladder volume of 3 mL seen. Assessment And Plan: Urinary tract infection, altered mental status in a 70-year-old with male with prostate abscess on abdominal CT with past history of enlarged prostate. The patient is getting recu rrent urinary tract infection. Recommend to have Urology followup, but continue antibiotic for at le ast 4 weeks. Can be switched to oral if the patient is able to tolerate antibiotic by mouth. Pendin g culture results with gram-negative rods in urine, possible E coli or Pseudomonas. Depending on cul ture results, we will continue antibiotic or adjust antibiotic. Thank you Dr. Mathews for consult. NF/MODL Voice ID: [id number] Report ID: [id number]
[2020-03-06] MEDS ORDERED: D50W 25 GM/50 ML SYRINGE IV PRN (17:13)
[2020-03-06] MEDS ORDERED: GLUCAGON 1 MG/VIAL IM PRN (17:13)
[2020-03-06] MEDS: METOPROLOL XL 25 MG TAB PO SCH (18:00)
[2020-03-06] MEDS: ESCITALOPRAM 20 MG TAB PO SCH (21:00)
[2020-03-06] MEDS: TAMSULOSIN 0.4 MG SR CAP PO SCH (21:00)
[2020-03-06] MEDS: INSULIN GLARGINE 100 UNITS/ML SQ SCH (21:00)
[2020-03-06] MEDS ORDERED: INSULIN GLARGINE 100 UNITS/ML SQ ONE (21:23)
[2020-03-07 04:55] LABS: Absolute Lymphocytes (CBC) 1.2 K/uL (0.7-4.9); Basophils % 0.6 % (0-1.3); Hematocrit 37.8 % (39.6-49.0); Lymphocytes % 14.9 % (15.3-44.8); MPV 8.7 fL (7.6-11.3)
[2020-03-07] MEDS ORDERED: METOPROLOL TAR 25 MG TAB ONE ×2 (04:58→17:37)
[2020-03-07 05:05] LABS: BUN Blood Urea Nitrogen 8 mg/dL (7-18); Bicarbonate 26 mmol/L (21-32); Glucose Level 173 mg/dL (74-106); Magnesium 2.2 mg/dL (1.8-2.4); Potassium 3.8 mmol/L (3.5-5.1); Sodium Level 136 mmol/L (136-145)
[2020-03-07] MEDS ORDERED: POTASSIUM CL SA 10 MEQ TAB PO ONE ×2 (05:33→06:00)
[2020-03-07] MEDS: METOPROLOL TAR 25 MG TAB PO SCH ×2 (05:43→17:51)
[2020-03-07] MEDS: METOPROLOL XL 25 MG TAB PO SCH ×2 (05:44→17:52)
[2020-03-07] MEDS ORDERED: NICOTINE 21 MG/PAT TD ONE (08:10)
[2020-03-07] MEDS ORDERED: CIPROFLOXACIN 400mg IV 400 MG/200 ML BAG IV ONE ×2 (08:10→22:27)
[2020-03-07] MEDS ORDERED: ENOXAPARIN 40 MG/0.4 ML SQ ONE (08:10)
[2020-03-07] MEDS ORDERED: CLOPIDOGREL 75 MG TABLET ONE (08:10)
[2020-03-07] MEDS ORDERED: ASPIRIN 81 MG CHEWABLE TABLET ONE (08:10)
[2020-03-07] MEDS: INSULIN -REGULAR HUMAN 50 UNIT/0.5 ML ML SQ SCH ×4 (08:30→22:26)
[2020-03-07] MEDS: NICOTINE 21 MG/PAT TD SCH (08:35)
[2020-03-07] MEDS ORDERED: INSULIN -REGULAR HUMAN 50 UNIT/0.5 ML ML ONE ×3 (08:36→22:27)
[2020-03-07] MEDS: ASPIRIN 81 MG CHEWABLE TABLET PO SCH (08:41)
[2020-03-07] MEDS: ESCITALOPRAM 20 MG TAB PO SCH ×2 (08:42→21:00)
[2020-03-07] MEDS: CIPROFLOXACIN 400mg IV 400 MG/200 ML BAG IV SCH ×2 (08:42→21:00)
[2020-03-07] MEDS: TOLTERODINE LA 4 MG CAP PO SCH (08:42)
[2020-03-07] MEDS: ENOXAPARIN 40 MG/0.4 ML SQ SCH (08:42)
[2020-03-07] MEDS: LACTOBACILLUS/ACIDOPHILUS TAB PO SCH ×2 (08:42→21:00)
[2020-03-07] MEDS: CLOPIDOGREL 75 MG TABLET PO SCH (08:43)
[2020-03-07] MEDS: NA CHLORIDE 0.9% 1,000 ML IV SCH ×2 (09:40→22:24)
[2020-03-07] MEDS ORDERED: NA CHLORIDE 0.9% 1,000 ML ONE ×2 (10:24→22:27)
[2020-03-07] MEDS: LIDOCAINE 4% PATCH TOP SCH (13:07)
[2020-03-07] MEDS ORDERED: LIDOCAINE 4% PATCH ONE (13:17)
[2020-03-07] MEDS ORDERED: D50W 25 GM/50 ML VIAL IV PRN (14:32)
[2020-03-07] MEDS: INSULIN GLARGINE 100 UNITS/ML SQ SCH (21:00)
[2020-03-07] MEDS: TAMSULOSIN 0.4 MG SR CAP PO SCH (21:00)
[2020-03-07] MEDS ORDERED: TAMSULOSIN 0.4 MG SR CAP ONE (22:26)
[2020-03-07] MEDS ORDERED: INSULIN GLARGINE 100 UNITS/ML SQ ONE (22:26)
[2020-03-08 05:37] LABS: BUN Blood Urea Nitrogen 10 mg/dL (7-18); Bicarbonate 28 mmol/L (21-32); Glucose Level 167 mg/dL (74-106); Sodium Level 136 mmol/L (136-145)
[2020-03-08] MEDS: METOPROLOL TAR 25 MG TAB PO SCH (06:00)
[2020-03-08] MEDS: METOPROLOL XL 25 MG TAB PO SCH ×2 (06:00→17:00)
[2020-03-08] MEDS ORDERED: METOPROLOL TAR 25 MG TAB ONE (06:35)
[2020-03-08] MEDS: CIPROFLOXACIN 400mg IV 400 MG/200 ML BAG IV SCH ×2 (08:42→21:35)
[2020-03-08] MEDS: INSULIN -REGULAR HUMAN 50 UNIT/0.5 ML ML SQ SCH ×4 (08:42→21:38)
[2020-03-08] MEDS: ASPIRIN 81 MG CHEWABLE TABLET PO SCH (08:43)
[2020-03-08] MEDS: CLOPIDOGREL 75 MG TABLET PO SCH (08:43)
[2020-03-08] MEDS: LIDOCAINE 4% PATCH TOP SCH (08:43)
[2020-03-08] MEDS: ENOXAPARIN 40 MG/0.4 ML SQ SCH (08:43)
[2020-03-08] MEDS: NICOTINE 21 MG/PAT TD SCH (08:43)
[2020-03-08] MEDS ORDERED: CLOPIDOGREL 75 MG TABLET ONE (08:53)
[2020-03-08] MEDS ORDERED: NICOTINE 21 MG/PAT TD ONE (08:53)
[2020-03-08] MEDS ORDERED: ENOXAPARIN 40 MG/0.4 ML SQ ONE (08:53)
[2020-03-08] MEDS ORDERED: ASPIRIN 81 MG CHEWABLE TABLET ONE (08:53)
[2020-03-08] MEDS ORDERED: CIPROFLOXACIN 400mg IV 400 MG/200 ML BAG IV ONE (08:54)
[2020-03-08] MEDS ORDERED: LIDOCAINE 4% PATCH ONE (08:54)
[2020-03-08] MEDS ORDERED: INSULIN -REGULAR HUMAN 50 UNIT/0.5 ML ML ONE ×2 (08:55→17:14)
--- NOTE | 2020-03-08 09:08 | P.PN ---
Subjective Date of Service: 03/06/20 Patient is still feeling weak. Spoke to his and she stated he was very depressed. He has been feeling suicidal. Spoke to the patient and he admits to being suicidal sometimes. He just feels helpless that he came really help his with her cancer salas. He also has been ill. Medically he is starting to do better. Urology wanted outpatient follow-up. We will get Psychiatry consultation at this time. Review of Systems 10-point ROS is otherwise unremarkable Physical Examination - Vital Signs Temperature: 98.2 F Blood Pressure: 138/66 Pulse: 105 Respirations: 19 Pulse Ox (%): 96 - Physical Exam General: Alert, In no apparent distress, Oriented x3 Respiratory: Clear to auscultation bilaterally, Normal air movement Cardiovascular: Regular rate/rhythm, Normal S1 S2, No murmurs Gastrointestinal: Normal bowel sounds, Soft and benign, Non-distended, No tenderness Musculoskeletal: No clubbing, No swelling, No tenderness Neurological: Normal strength at 5/5 x4 extr, Sensation intact, Cranial nerves 3-12 intact - Studies Microbiology Data (last 24 hrs): 03/04/20 19:43 Catheterized Urine [place] Count - Final >100,000 CFU/ML. 03/04/20 19:43 Catheterized Urine - Final Escherichia Coli Medications List Reviewed: Yes Assessment & Plan - Problems (Diagnosis) (1) Prostatitis Current Visit: Yes Status: Acute (2) Cystitis Current Visit: Yes Status: Acute (3) Depression Current Visit: Yes Status: Acute (4) CAD (coronary artery disease) Current Visit: No Status: Acute Qualifiers: Coronary Disease-Associated Artery/Lesion type: bypass graft [place] vs. transplanted heart: [place] heart Associated angina: without angina Qualified Code(s): I25.810 - Atherosclerosis of coronary artery bypass graft(s) without angina pectoris (5) Diabetes mellitus Current Visit: No Status: Acute Qualifiers: Diabetes mellitus type: type 2 Diabetes mellitus mcc insulin use: unspecified mcc insulin use status Diabetes mellitus complication status: with unspecified complications (6) HTN (hypertension) Current Visit: No Status: Acute Qualifiers: Hypertension type: essential hypertension Qualified Code(s): I10 - Essential (primary) hypertension - Plan 1. Continue with IV hydration 2. Continue with IV antibiotics 3. Continue with pain control 4. Diet as tolerated 5. Spoke with Urology and they recommended outpatient consultation; will also get Psychiatry consultation 6. Serial H&H, and we will monitor CBC, BMP, LFTs and lipase along with electrolytes. 7. GI and DVT prophylaxis Discharge Plan: Home Plan to discharge in: Greater than 2 days - Advance Directives Does patient have a Living Will: No Does patient have a Durable POA for Healthcare: No - Code Status/Comfort Care Code Status Assessed: Yes Code Status: Full Code Critical Care: No Time Spent Managing PTS Care (In Minutes): 45
--- NOTE | 2020-03-08 09:11 | P.PN ---
Subjective Date of Service: 03/07/20 Clinically, patient is doing much better. He does not feel as depressed. He does appear to have some Parkinson's type symptoms. Will put him on some Parkinson's medication with outpatient neurology follow-up as well. If patient is cleared by Psychiatry then anticipate discharge home. Review of Systems 10-point ROS is otherwise unremarkable Physical Examination - Vital Signs Temperature: 98.2 F Blood Pressure: 138/66 Pulse: 105 Respirations: 19 Pulse Ox (%): 96 - Physical Exam General: Alert, In no apparent distress, Oriented x3 Respiratory: Clear to auscultation bilaterally, Normal air movement Cardiovascular: Regular rate/rhythm, Normal S1 S2, No murmurs Gastrointestinal: Normal bowel sounds, Soft and benign, Non-distended, No tenderness Musculoskeletal: No clubbing, No swelling, No tenderness Neurological: Normal tone, Sensation intact, Cranial nerves 3-12 intact - Studies Microbiology Data (last 24 hrs): 03/04/20 19:43 Catheterized Urine [place] Count - Final >100,000 CFU/ML. 03/04/20 19:43 Catheterized Urine - Final Escherichia Coli Medications List Reviewed: Yes Assessment & Plan - Problems (Diagnosis) (1) Prostatitis Current Visit: Yes Status: Acute (2) Cystitis Current Visit: Yes Status: Acute (3) Depression Current Visit: Yes Status: Acute (4) CAD (coronary artery disease) Current Visit: No Status: Acute Qualifiers: Coronary Disease-Associated Artery/Lesion type: bypass graft [place] vs. transplanted heart: [place] heart Associated angina: without angina Qualified Code(s): I25.810 - Atherosclerosis of coronary artery bypass graft(s) without angina pectoris (5) Diabetes mellitus Current Visit: No Status: Acute Qualifiers: Diabetes mellitus type: type 2 Diabetes mellitus [place] insulin use: unspecified skilled nursing insulin use status Diabetes mellitus complication status: with unspecified complications (6) HTN (hypertension) Current Visit: No Status: Acute Qualifiers: Hypertension type: essential hypertension Qualified Code(s): I10 - Essential (primary) hypertension - Plan Continue with plan of care as mentioned below 1. Continue with IV hydration 2. Continue with IV antibiotics 3. Continue with pain control 4. Diet as tolerated 5. Spoke with Urology and they recommended outpatient consultation; will also get Psychiatry consultation 6. Serial H&H, and we will monitor CBC, BMP, LFTs and lipase along with electrolytes. 7. Start carbo-levodopa 8. GI and DVT prophylaxis Discharge Plan: Home Plan to discharge in: Greater than 2 days - Advance Directives Does patient have a Living Will: No Does patient have a Durable POA for Healthcare: No - Code Status/Comfort Care Code Status: Full Code Critical Care: No Time Spent Managing PTS Care (In Minutes): 45
[2020-03-08] MEDS: ESCITALOPRAM 20 MG TAB PO SCH ×2 (10:52→21:36)
[2020-03-08] MEDS: TOLTERODINE LA 4 MG CAP PO SCH (10:52)
[2020-03-08] MEDS: LACTOBACILLUS/ACIDOPHILUS TAB PO SCH ×2 (10:52→21:37)
[2020-03-08] MEDS: CARBIDOPA/LEVODOPA 25/100 TAB PO SCH ×4 (11:09→21:37)
--- NOTE | 2020-03-08 14:16 | PN ---
Subjective: The patient is lying in bed. Denies any headache, nausea, vomiting, chest pain, abdomin al pain, constipation, or diarrhea. Objective: Vital Signs: Temperature 98, pulse , respirations 19, blood pressure 138/66. Lungs: Basal crackles. Heart: S1, S2. Regular. Abdomen: Soft, nontender. Bowel sounds present. Extremities: No edema. Laboratory Data: WBC 8.3 down from 17, hemoglobin 12.6, platelets are 166. Chemistry shows sodium 1 36, potassium 4, chloride 102, bicarbonate 28, BUN 10, creatinine 0.6, glucose 167. Micro data: Urine cultures are growing E coli sensitive to nitrofurantoin, Augmentin, gentamicin, qu inolones, Rocephin, ceftazidime, cefepime, Cipro, meropenem. The patient is currently being treated with Cipro. Assessment And Plan: Urosepsis secondary to Escherichia coli. The patient is currently being treate d with Rocephin. Continue current treatment. Blood cultures 24-hour, no growth. Abdominal CT done on March 04 shows cystitis and prostatitis with a central prostate abscess. We will recommend to continue treatment for total of 4 weeks. Can be switched to oral antibiotic and have a followup with urologist. NF/MODL Voice ID: [id number] Report ID: [id number]
--- NOTE | 2020-03-08 16:09 | EKG ---
Test Date: 2020-03-08 Test Time: 14:09:35 Hand Candle Dipper: TRUNG MEASUREMENT RESULTS: Intervals: Rate: 68 HI: 118 QRSD: 88 QT: 458 QTc: 487 [place]: P: 33 HI: 118 QRS: -8 T: 64 INTERPRETIVE STATEMENTS: Sinus rhythm with premature atrial complexes Nonspecific ST abnormality Prolonged QT Abnormal ECG Compared to ECG 03/04/2020 17:36:18 Atrial premature complex(es) now present Prolonged QT interval now present Sinus tachycardia no longer present Left-axis deviation no longer present Possible ischemia no longer present ST (T wave) deviation still present Electronically Signed On 03-08-20 16:08:30 ORCHARD SPRAYER by Florian Mclean
[2020-03-08] MEDS ORDERED: METHYLPREDNISOLONE 125 MG INJ ONE (17:19)
[2020-03-08] MEDS ORDERED: ACETAMINOPHEN 500 MG TAB ONE (17:20)
[2020-03-08] MEDS: METHYLPREDNISOLONE 125 MG INJ IV SCH (17:54)
[2020-03-08 20:32] VITALS: O2SAT 98
[2020-03-08] MEDS: TAMSULOSIN 0.4 MG SR CAP PO SCH (21:36)
[2020-03-08] MEDS: INSULIN GLARGINE 100 UNITS/ML SQ SCH (21:37)
[2020-03-09] MEDS: METHYLPREDNISOLONE 125 MG INJ IV SCH ×4 (00:24→18:07)
[2020-03-09] MEDS: METOPROLOL XL 25 MG TAB PO SCH ×2 (05:52→18:08)
[2020-03-09 06:33] LABS: Absolute Lymphocytes (CBC) 0.8 K/uL (0.7-4.9); Basophils % 0.2 % (0-1.3); Hematocrit 40.2 % (39.6-49.0); Lymphocytes % 9.2 % (15.3-44.8); MPV 8.6 fL (7.6-11.3); RBC Red Blood Cell Count 4.57 M/uL (4.33-5.43)
[2020-03-09 07:06] LABS: BUN Blood Urea Nitrogen 14 mg/dL (7-18); Bicarbonate 26 mmol/L (21-32); Glucose Level 321 mg/dL (74-106); Magnesium 2.6 mg/dL (1.8-2.4); NT PRO-BNP 753 pg/mL (<125); Phosphorus 4.1 mg/dL (2.5-4.9); Sodium Level 136 mmol/L (136-145)
[2020-03-09] MEDS: INSULIN -REGULAR HUMAN 50 UNIT/0.5 ML ML SQ SCH ×4 (07:30→21:52)
[2020-03-09 07:55] LABS: Blood Morphology Comment NOT SEEN (NOT SEEN); Platelet Estimate ADEQ; White Blood Cell Scan OK (OK)
[2020-03-09] MEDS: LIDOCAINE 4% PATCH TOP SCH (09:00)
--- NOTE | 2020-03-09 09:55 | P.PN ---
Subjective Date of Service: 03/08/20 Spoke to inpatient psychiatry and they stated that patient can follow-up as an outpatient. They did not need suicide precautions inpatient. Continued antidepressant. I did get patient out of bed and we walked in place. Patient was really weak. Will get physical therapy evaluation and residential fac ility evaluation. Urologic symptoms have improved. Review of Systems 10-point ROS is otherwise unremarkable Physical Examination - Vital Signs Temperature: 98.4 F Blood Pressure: 144/92 Pulse: 78 Respirations: 19 Pulse Ox (%): 90 - Physical Exam General: Alert, In no apparent distress, Oriented x3 Respiratory: Clear to auscultation bilaterally, Normal air movement Cardiovascular: Regular rate/rhythm, Normal S1 S2 Gastrointestinal: Normal bowel sounds, No tenderness Musculoskeletal: No tenderness Integumentary: No rashes Neurological: Normal speech, Normal tone, Normal affect Lymphatics: No axilla or inguinal lymphadenopathy - Studies Medications List Reviewed: Yes Assessment & Plan - Problems (Diagnosis) (1) Prostatitis Current Visit: Yes Status: Acute (2) Cystitis Current Visit: Yes Status: Acute (3) Depression Current Visit: Yes Status: Acute (4) CAD (coronary artery disease) Current Visit: No Status: Acute Qualifiers: Coronary Disease-Associated Artery/Lesion type: bypass graft [place] vs. transplanted heart: [place] heart Associated angina: without angina Qualified Code(s): I25.810 - Atherosclerosis of coronary artery bypass graft(s) without angina pectoris (5) Diabetes mellitus Current Visit: No Status: Acute Qualifiers: Diabetes mellitus type: type 2 Diabetes mellitus longterm insulin use: unspecified longterm insulin use status Diabetes mellitus complication status: with unspecified complications (6) HTN (hypertension) Current Visit: No Status: Acute Qualifiers: Hypertension type: essential hypertension Qualified Code(s): I10 - Essential (primary) hypertension - Plan Continue with plan of care as mentioned below 1. Continue with IV hydration 2. Continue with IV antibiotics 3. Continue with pain control 4. Diet as tolerated 5. Spoke with Urology and they recommended outpatient consultation; psychiatry recommended outpatient follow-up along with antidepressant 6. Serial H&H, and we will monitor CBC, BMP, LFTs and lipase along with electrolytes. 7. Start carbo-levodopa; neurology follow-up as well 8. GI and DVT prophylaxis Discharge Plan: [facility] Plan to discharge in: Greater than 2 days - Advance Directives Does patient have a Living Will: No Does patient have a Durable POA for Healthcare: No - Code Status/Comfort Care Code Status: Full Code Critical Care: No Time Spent Managing PTS Care (In Minutes): 35
[2020-03-09] MEDS: NICOTINE 21 MG/PAT TD SCH (10:25)
[2020-03-09] MEDS: CIPROFLOXACIN 400mg IV 400 MG/200 ML BAG IV SCH ×2 (10:25→21:51)
[2020-03-09] MEDS: ASPIRIN 81 MG CHEWABLE TABLET PO SCH (10:26)
[2020-03-09] MEDS: LACTOBACILLUS/ACIDOPHILUS TAB PO SCH ×2 (10:26→21:52)
[2020-03-09] MEDS: TOLTERODINE LA 4 MG CAP PO SCH (10:26)
[2020-03-09] MEDS: CLOPIDOGREL 75 MG TABLET PO SCH (10:26)
[2020-03-09] MEDS: ENOXAPARIN 40 MG/0.4 ML SQ SCH (10:26)
[2020-03-09] MEDS: ESCITALOPRAM 20 MG TAB PO SCH ×2 (10:27→21:52)
[2020-03-09] MEDS: CARBIDOPA/LEVODOPA 25/100 TAB PO SCH (10:27)
[2020-03-09] MEDS: TAMSULOSIN 0.4 MG SR CAP PO SCH (21:51)
[2020-03-09] MEDS: INSULIN GLARGINE 100 UNITS/ML SQ SCH (21:53)
[2020-03-10] MEDS: METHYLPREDNISOLONE 125 MG INJ IV SCH ×2 (00:10→05:46)
[2020-03-10 04:44] LABS: BUN Blood Urea Nitrogen 22 mg/dL (7-18); Bicarbonate 27 mmol/L (21-32); Glucose Level 270 mg/dL (74-106); Magnesium 2.9 mg/dL (1.8-2.4); Potassium 4.4 mmol/L (3.5-5.1); Sodium Level 138 mmol/L (136-145)
[2020-03-10] MEDS: METOPROLOL XL 25 MG TAB PO SCH (05:46)
[2020-03-10] MEDS: CIPROFLOXACIN 400mg IV 400 MG/200 ML BAG IV SCH (09:28)
[2020-03-10] MEDS: LIDOCAINE 4% PATCH TOP SCH (09:32)
[2020-03-10] MEDS: LACTOBACILLUS/ACIDOPHILUS TAB PO SCH (09:32)
[2020-03-10] MEDS: ASPIRIN 81 MG CHEWABLE TABLET PO SCH (09:32)
[2020-03-10] MEDS: NICOTINE 21 MG/PAT TD SCH (09:32)
[2020-03-10] MEDS: CLOPIDOGREL 75 MG TABLET PO SCH (09:33)
[2020-03-10] MEDS: ENOXAPARIN 40 MG/0.4 ML SQ SCH (09:33)
[2020-03-10] MEDS: ESCITALOPRAM 20 MG TAB PO SCH (09:33)
[2020-03-10] MEDS: INSULIN -REGULAR HUMAN 50 UNIT/0.5 ML ML SQ SCH (09:34)
[2020-03-10] MEDS: TOLTERODINE LA 4 MG CAP PO SCH (09:43)
--- NOTE | 2020-03-15 04:35 | P.PN ---
Subjective Date of Service: 03/09/20 Patient continues to do a little bit better. Patient denies any complaints. Plan will be the discharge to home health services. Review of Systems 10-point ROS is otherwise unremarkable Physical Examination - Vital Signs Temperature: 98.1 F Blood Pressure: 133/64 Pulse: 65 Respirations: 16 Pulse Ox (%): 92 - Physical Exam General: Alert, In no apparent distress, Oriented x3 Respiratory: Clear to auscultation bilaterally, Normal air movement Cardiovascular: Regular rate/rhythm, Normal S1 S2, No murmurs Gastrointestinal: Normal bowel sounds, Soft and benign, Non-distended, No tenderness Musculoskeletal: No clubbing, No swelling, No tenderness Integumentary: No rashes Neurological: Normal strength at 5/5 x4 extr, Sensation intact, Cranial nerves 3-12 intact - Studies Medications List Reviewed: Yes Assessment & Plan - Problems (Diagnosis) (1) Prostatitis Status: Acute (2) Cystitis Status: Acute (3) Depression Status: Acute (4) CAD (coronary artery disease) Status: Acute Qualifiers: Coronary Disease-Associated Artery/Lesion type: bypass graft [place] vs. 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 Continue with IV hydration 2. Continue with IV antibiotics 3. Continue with pain control 4. Diet as tolerated 5. Spoke with Urology and they recommended outpatient consultation; psychiatry recommended outpatient follow-up along with antidepressant 6. Serial H&H, and we will monitor CBC, BMP, LFTs and lipase along with electrolytes. 7. Start carbo-levodopa; neurology follow-up as well 8. GI and DVT prophylaxis Discharge Plan: Retirement Plan to discharge in: Greater than 2 days - Advance Directives Does patient have a Living Will: No Does patient have a Durable POA for Healthcare: No - Code Status/Comfort Care Code Status: Full Code
[2020-03-15 04:36] VITALS: BP 138/66; TEMP 98.2
--- NOTE | 2020-03-15 04:37 | P.DS ---
Discharge Date: 03/10/20 Primary Care Provider: Dr. Valenzuela Disposition: TRANSFER TO SNF - REHAB Discharge Condition: GOOD Reason for Admission: UTI, AMS Consultations: Infectious disease - Problems (1) Prostatitis Status: Acute (2) Cystitis Status: Acute (3) Depression Status: Acute (4) CAD (coronary artery disease) Status: Acute Qualifiers: Coronary Disease-Associated Artery/Lesion type: bypass graft [place] vs. 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 Patient was treated with IV antibiotics and his symptoms have improved. Patient was depressed and he says just did that he could be suicidal. After medical treatment he is clinically doing much better. Hospital Course: Patient is stable for discharge to a retirement facility placement. Patient is doing much better. Plan a discharge home with outpatient follow up. Vital Signs/Physical Exam: Temp Pulse Resp BP Pulse Ox 98.2 F 105 H 19 138/66 96 03/15/20 04:35 03/15/20 04:35 03/15/20 04:35 03/15/20 04:35 03/15/20 04:35 General: Alert, In no apparent distress, Oriented x3 Laboratory Data at Discharge: WBC 8.9 K/uL (4.3-10.9) 03/09/20 06:03 Hgb 13.3 g/dL (13.6-17.9) L 03/09/20 06:03 Hct 40.2 % (39.6-49.0) 03/09/20 06:03 Plt Count 237 K/uL (152-406) D 03/09/20 06:03 PT 12.8 SECONDS (9.5-12.5) H 03/04/20 18:17 INR 1.09 03/04/20 18:17 APTT 27.0 SECONDS (24.3-36.9) 03/04/20 18:17 Sodium 138 mmol/L (136-145) 03/10/20 03:35 Potassium 4.4 mmol/L (3.5-5.1) 03/10/20 03:35 BUN 22 mg/dL (7-18) H 03/10/20 03:35 Creatinine 0.81 mg/dL (0.55-1.3) 03/10/20 03:35 Glucose 270 mg/dL (74-106) H 03/10/20 03:35 Phosphorus 4.1 mg/dL (2.5-4.9) 03/09/20 06:03 Magnesium 2.9 mg/dL (1.8-2.4) H 03/10/20 03:35 Total Bilirubin 1.5 mg/dL (0.2-1.0) H 03/04/20 18:17 AST 16 U/L (15-37) 03/04/20 18:17 ALT 24 U/L (12-78) 03/04/20 18:17 Alkaline Phosphatase 68 U/L (45-117) 03/04/20 18:17 Lipase 80 U/L (73-393) 03/04/20 18:17 Home Medications: Aspirin Chewable [Aspirin Chewable*] 81 mg PO DAILY tab.chew 06/11/18 Clopidogrel Bisulfate [Plavix*] 75 mg PO DAILY tablet 06/11/18 Ezetimibe [Zetia*] 10 mg PO DAILY tab 06/11/18 Irbesartan [Avapro*] 150 mg PO DAILY tab 06/11/18 Metoprolol Succinate [Toprol Xl*] 25 mg PO BID 6AM 6PM tab 06/11/18 Rosuvastatin [Crestor*] 20 mg PO BEDTIME tab 06/11/18 Tolterodine Tartrate [Detrol LA*] 4 mg PO DAILY cap 06/11/18 Tresiba 50 Units 50 units SQ BEDTIME 06/11/18 Metformin ER [Glucophage ER] 1,000 mg PO DAILY 03/06/20 Repaglinide [Prandin] 1 tab PO Q6H 03/06/20 Carbidopa/Levodopa 25-100 [Sinemet 25-100*] 1 tab PO TID #90 tab 03/08/20 Escitalopram Oxalate [Lexapro] 10 mg PO DAILY #30 tablet 03/08/20 levoFLOXacin [Levaquin] 500 mg PO DAILY #10 tab 03/08/20 New Medications: levoFLOXacin [Levaquin] 500 mg PO DAILY #10 tab Escitalopram Oxalate [Lexapro] 10 mg PO DAILY #30 tablet Carbidopa/Levodopa 25-100 [Sinemet 25-100*] 1 tab PO TID #90 tab Patient Discharge Instructions: OK TO DC IV AND DC HOME. FOLLOW-UP WITH PRIMARY CARE PROVIDER IN 1-2 WEEKS. FOLLOW-UP WITH Neurology IN 1-2 WEEKS. Follow-up with Psychiatry in 2-4 weeks. RETURN TO THE ER IF symptoms worsen. CALL or TEXT DR. JUAREZ AT [phone] IF ANY QUESTIONS REGARDING HOSPITAL STAY. PLEASE CALL THE FLOOR AT [phone] IF ANY MEDICATION OR NURSING QUESTIONS. Diet: AHA Activity: Fall precautions Followup: Mc Clarke MD [ASSOCIATE-ACTIVE - CAN ADMIT] - (Call to make an appointment. ) Winston Vogel [ACTIVE - CAN ADMIT] - (Call to make an appointment. ) NONE,NONE [Primary Care Provider] - (Call to make an appointment. ) Cirilo Mcgrath [COURTESY - CAN ADMIT] - (Call to make an appointment. ) Time spent managing pt's care (in minutes): 35
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
== END 2020-03-10 13:41 | DRG 727 ==
LOC: ER 17:25 → ERHOLD 19:58 → 2ND 03-08 20:55
PROVIDERS: ADMIT Family Medicine; ATTEND Hospitalist
DX: N41.0 Acute prostatitis (principal); G92 Toxic encephalopathy; I25.810 Atherosclerosis of coronary artery bypass graft(s) without angina pectoris; F33.2 Major depressive disorder, recurrent severe without psychotic features; N41.2 Abscess of prostate; I10 Essential (primary) hypertension; F17.210 Nicotine dependence, cigarettes, uncomplicated; E11.8 Type 2 diabetes mellitus with unspecified complications; E78.5 Hyperlipidemia, unspecified; E66.9 Obesity, unspecified; B96.20 Unspecified Escherichia coli [E. coli] as the cause of diseases classified elsewhere; Z68.30 Body mass index [BMI] 30.0-30.9, adult; Z79.4 Long term (current) use of insulin; Z79.82 Long term (current) use of aspirin; Z79.899 Other long term (current) drug therapy; Z95.1 Presence of aortocoronary bypass graft; Z90.49 Acquired absence of other specified parts of digestive tract; Z88.8 Allergy status to other drugs, medicaments and biological substances; Z79.01 Long term (current) use of anticoagulants; Z79.02 Long term (current) use of antithrombotics/antiplatelets; Z20.822 Contact with and (suspected) exposure to COVID-19
CPT/HCPCS: 0240U; 36415; 51702; 70450; 71045; 74177; 76857; 80048; 80076; 81003; 81015; 82550; 82947; 83036; 83605; 83690; 83735; 83880; 84100; 84132; 84145; 84153; 84439; 84443; 84484; 85025; 85610; 85652; 85730; 86140; 87040; 87077; 87086; 87088; 87186; 93005; 93306; 96365; 96366; 97110; 97112; 97116; 97161; 97530; 99285; J0696; J0744; J1650; J1815; J2930; J3475; J7030; J7040; Q9967

== ENCOUNTER 2021-12-22 11:30 | Emergency (ER) | payer OTHER ==
--- OUTSIDE RECORDS SUMMARY | 2021-12-22 11:37 | XMS REPORT | Continuity of Care Document ---
:1950 Author Organization [facility] t Address [address] [place] [address] Care Team Providers Name Role Phone KARINA VALENZUELA Primary Care Physician Unavailable Kash Valenzuela Attending Clinician Unavailable Gutierrez Carrasquillo MD Attending Clinician GUTIERREZ CARRASQUILLO Attending Clinician Unavailable Doug Murphy RN Attending Clinician Unavailable NATHAN SALAZAR Attending Clinician Unavailable Margarita Hahn Attending Clinician Lilly Jennings MD Attending Clinician LILLY JENNINGS Attending Clinician Unavailable COLTON ELLINGTON Attending Clinician Unavailable GUTIERREZ CARRASQUILLO Admitting Clinician Unavailable COLTON ELLINGTON Admitting Clinician Unavailable Payers Payer Name Policy Type Policy Number Effective Date Expiration Date S jake AETNA 53 [id number] 2002 [facility] 00:00:00 - [facility] AETNA 53 [id number] [facility] MEDICARE MB [id number] [facility] - [facility] MEDICARE MB [id number] [facility] MEDICARE PART A [id number] 2013 \T\ B 00:00:00 PRISCILLA FRANCOIS [id number] 2013 00:00:00 Problems Condition Condition Condition Status Onset Resolution Last Treating Co mments Source Name Details Category Date Date Treatment Clinician Date Angina Angina Disease Active 2020-[address] [facility] pectoris pectoris 04[facility]03 [facility] [place] Abnormal Abnormal Disease [facility] nuclear [facility] stress stress 00:00: Medical test test 00 Center CAD CAD Disease Active [facility] ([facility]onary (coronary 08-29 [facility] artery artery 00:00: Medical disease) disease) 00 Center Diabetes Diabetes Disease [facility] [place] Hypertensi Hypertensi Disease Active [facility] on on 08-29 [facility] [place] Hyperlipid Hyperlipid Disease Active [facility] emia emia 08-29 [facility]: [facility] 00 [place] [id number] OAB Problem Common (overactiv Spirit e bladder) [facility] [id number] Parkinsons Problem Com mon disease Spirit [facility] [id number] Nocturnal Problem Commo n enuresis [facility] Urge Urge Problem Common urinary urinary Spirit incontinen incontinen [facility] [id number] 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 Spirit y [facility] [id number] BPH loc w Problem Com mon urin Spirit obs/LUTS [facility] [id number] Functional Problem Co mmon urinary Spirit incontinen [facility] 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 St Allergy 4-03 reaction( [facility] 00:00: s): Medical hallucina [facility] NO KNOWN Drug Active [facility] ALLERGIE Class ity of S [facility] NO KNOWN Allergy Active [facility] Family History Family Member Diagnosis Comments Start Date Stop Date Source Natural father [facility] Natural father [facility] Natural father Heart disease [facility] Natural mother Coronary artery [facility] Natural mother [facility] Social History Social Habit Start Date Stop Date Quantity Comments Source History of [facility] - Tobacco Use [facility] Alcohol intake 2021-02-01 2021-02-01 Current [facility] 00:00:00 00:00:00 non-drinker of Medical Ce nter alcohol (finding) Tobacco use and 2018-08-10 2018-08-10 Former user [facility] exposure 00:00:00 00:00:00 [facility] Tobacco Comment 2018-08-10 2018-08-10 smokes a pipe [facility] 00:00:00 00:00:00 [facility] Sex [birth year] [facility] 00:00:00 00:00:00 [facility] Smoking Status Start Date Stop Date Source Tobacco smoking consumption [facility] unknown Never Smoker [facility] nter Light tobacco smoker 2018-08-10 00:00:00 [facility] Medications Ordered Filled Start Stop Current Ordering Indication Dosage Frequency Signature Comments Components Source Medication Medication Date Date Medication? Clinician (SIG) Name Name Amoxicillin Amoxicillin 2021- No 1{table BID Amoxicilli -Pot -Pot 09-13- t} n-Pot Clavulanate Clavulanate 00:00: 00:00 Clavulanat 875-125 MG 875-125 MG 00 :00 e 875-125 MG Proscar 5 Proscar 5 2022- No 1{table QD Proscar 5 MG MG 08-30 08 t} MG 00:00: 00:00 00 :00 Proscar 5 Proscar 5 2022- No 1{table QD Proscar 5 MG MG 08-30 t} MG 00:00: 00:00 00 :00 Proscar 5 Proscar 5 2021-0 2023- No 1{table QD Proscar 5 MG MG 08-30 t} MG 00:00: 00:00 00 :00 Proscar 5 Proscar 5 2-0 2023- No 1{table QD Proscar 5 MG MG 08-30 t} MG 00:00: 00:00 00 :00 Proscar 5 Proscar 5 2-0 2023- No 1{table QD Proscar 5 MG MG 08-30 t} MG 00:00: 00:00 00 :00 Proscar 5 Proscar 5 2021-0 2023- No 1{table QD Proscar 5 MG MG 08-30 t} MG 00:00: 00:00 00 :00 Proscar 5 Proscar 5 2-0 2023- No 1{table QD Proscar 5 MG MG 08-30 t} MG 00:00: 00:00 00 :00 Proscar 5 Proscar 5 2-0 2023- No 1{table QD Proscar 5 MG MG 08-30 t} MG 00:00: 00:00 00 :00 Proscar 5 Proscar 5 2-0 2023- No 1{table QD Proscar 5 MG MG 08-30 t} MG 00:00: 00:00 00 :00 insulin 2020-02 Yes 50U QD Inject 50 [facility] degludec 2-09 Units [facility] (Tresiba 20:31: subcutaneo Med ical FlexTouch 02 [facility] U-100) 100 daily. unit/mL (3 mL) InPn tolterodine 2020-02 Yes 4mg QD Take [address] (DETROL LA) 2-09 by mouth [facility] 4 MG 24 hr 20:31: daily. Medic al capsule 02 Center ibuprofen 2020-02 Yes 200mg Take [address] [facility] (ADVIL,MOTR 2-09 mg by [facility] [place]) 200 MG 20:31: mouth Medica l tablet 02 every 6 Center (six) hours as needed for Pain. metoprolol 2020-02 Yes 50mg QD Take [address] succinate 2-09 by mouth [facility] (TOPROL-XL) 20:31: daily. Medi juan m 50 MG 24 hr 02 [place] tablet solifenacin 2020-02 Yes 10mg QD Take [address] (VESIcare) 2-09 by mouth [facility] 10 MG 20:31: daily. Medical tablet 02 [place] irbesartan 2020-02 Yes 300mg QD Take [address] (AVAPRO) 2-08 mg by [facility] 300 MG 22:38: mouth Medical tablet 17 nightly. [place] rosuvastati 2020-02 Yes 20mg QD Take [address] n (CRESTOR) 2-08 by mouth [facility] 20 MG 22:38: daily. Medical tablet 17 [place] metFORMIN 2020-02 Yes 1000mg Take 1,[address] (GLUCOPHAGE 2-08 mg by [facility] ) 1000 MG 22:38: mouth 2 Medic al tablet 17 (two) Center times daily with breakfast and dinner. ezetimibe 2020-02 Yes 10mg QD Take [address] (ZETIA) 10 2-08 by mouth [facility] mg tablet 22:38: daily. Medica l [address] [place] [address] clopidogrel 2020-02 Yes 75mg QD Take [address] (PLAVIX) 75 2-08 by mouth [facility] mg tablet 22:38: daily. Medica l [address] [place] [address] repaglinide 2020-02 Yes 1mg QD Take [address] (PRANDIN) 1 2-08 by mouth [facility] MG tablet 22:38: daily. Medica l [address] [place] [address] aspirin 81 2020-02 Yes 81mg QD Take [address] MG EC 2-08 by mouth [facility] tablet 22:38: daily. [address] VESIcare 10 VESIcare 10 2020-02- No 1{table QD VESIcare MG MG 03-28 t} 10 MG 00:00: 00:00 00 :00 VESIcare 10 VESIcare 10 2020-02- No 1{table QD VESIcare MG MG 03-28 t} 10 MG 00:00: 00:00 00 :00 solifenacin 2020-02- No 10mg QD Take [address] (Vesicare) 03-28 12-08 by mouth [facility] 10 MG 00:00: 00:00 daily . Medical tablet 00 :00 [place] metoprolol 2020-02- No 50mg Q.5D Take [address] (LOPRESSOR) 03-19 by mouth 2 L ukes 50 MG 09:57: 00:00 (two) Medical tablet 50 :00 times Center daily. Missing or 2020-02- No Pt on a [facility] Non-Formula 03-19-24 medication L nagi ry 09:57: 00:00 for gout. Medical Medication 50 :00 Cannot Center recall name of it . glipiZIDE 2020-02 Yes 5mg Take [address] (GLUCOTROL) 1-23 by mouth 2 Linda kes 5 MG tablet 00:00: (two) Medic al 00 times Center daily before meals . trospium ER 2020-02 Yes 60mg QD Take [address] (SANCTURA) 1-20 by mouth [facility] 60 mg Cp24 00:00: daily . Medi juan m capsule 00 [place] Vascepa 1 2020-02 Yes 1g QD Take [address] gram Cap 1-12 by mouth [facility] 00:00: daily . Medical 00 Center carbidopa-l 2020-02 Yes 1{tbl} [id number] Take [address] evodopa 0-27 [id number] tablet by Chuckie lazar (SINEMET) 00:00: 3D mouth 3 Medic al 25-100 mg 00 (three) Center per tablet times daily . Myrbetriq 2020-02 Yes 50mg QD Take [address] 50 mg Tb24 0-27 by mouth [facility] ER tablet 00:00: daily . Medic al 00 [place] Myrbetriq Myrbetriq 2020-02- No 1{table QD Myrbetriq 50 MG 50 MG 0-27 10-22 t} 50 MG 00:00: 00:00 00 :00 Myrbetriq Myrbetriq 2020-02- No 1{table QD Myrbetriq 50 MG 50 MG 0-27 10-22 t} 50 MG 00:00: 00:00 00 :00 Myrbetriq Myrbetriq 2020-02- No 1{table QD Myrbetriq 50 MG 50 MG 0-27 10-22 t} 50 MG 00:00: 00:00 00 :00 Myrbetriq Myrbetriq 2021-1 2022- No 1{table QD Myrbetriq 50 MG 50 MG 0-27 10-22 t} 50 MG 00:00: 00:00 00 :00 Myrbetriq Myrbetriq 2020-2- No 1{table QD Myrbetriq 50 MG 50 MG 0-27 10-22 t} 50 MG 00:00: 00:00 00 :00 Myrbetriq Myrbetriq 2020- 2022- No 1{table QD Myrbetriq 50 MG 50 MG 0-27 10-22 t} 50 MG 00:00: 00:00 00 :00 Myrbetriq Myrbetriq 2020-2- No 1{table QD Myrbetriq 50 MG 50 MG 0-27 10-22 t} 50 MG 00:00: 00:00 00 :00 Myrbetriq Myrbetriq 2020- 2022- No 1{table QD Myrbetriq 50 MG 50 MG 0-27 10-22 t} 50 MG 00:00: 00:00 00 :00 Myrbetriq Myrbetriq 2020-2- No 1{table QD Myrbetriq 50 MG 50 MG 0-27 10-22 t} 50 MG 00:00: 00:00 00 :00 Myrbetriq Myrbetriq 2020-2- No 1{table QD Myrbetriq 50 MG 50 MG 0-27 10-22 t} 50 MG 00:00: 00:00 00 :00 Myrbetriq Myrbetriq 2020-2- No 1{table QD Myrbetriq 50 MG 50 MG 0-27 10-22 t} 50 MG 00:00: 00:00 00 :00 Myrbetriq Myrbetriq 2020- 2022- No 1{table QD Myrbetriq 50 MG 50 MG 0-27 10-22 t} 50 MG 00:00: 00:00 00 :00 Myrbetriq Myrbetriq 2020-2- No 1{table QD Myrbetriq 50 MG 50 MG 0-27 10-22 t} 50 MG 00:00: 00:00 00 :00 Myrbetriq Myrbetriq 2020- 2022- No 1{table QD Myrbetriq 50 MG 50 MG 0-27 10-22 t} 50 MG 00:00: 00:00 00 :00 Myrbetriq Myrbetriq 2020-022- No 1{table QD Myrbetriq 50 MG 50 MG 0-27 10-22 t} 50 MG 00:00: 00:00 00 :00 Myrbetriq Myrbetriq 2020- 2022- No 1{table QD Myrbetriq 50 MG 50 MG 0-27 - t} 50 MG 00:00: 00:00 00 :00 Myrbetriq Myrbetriq 2020-022- No 1{table QD Myrbetriq 50 MG 50 MG 0-27 - t} 50 MG 00:00: 00:00 00 :00 Myrbetriq Myrbetriq 2020-022- No 1{table QD Myrbetriq 50 MG 50 MG 0-27 - t} 50 MG 00:00: 00:00 00 :00 Myrbetriq Myrbetriq 2020-022- No 1{table QD Myrbetriq 50 MG 50 MG 0-27 12-15 t} 50 MG 00:00: 00:00 00 :00 Myrbetriq Myrbetriq 2020-022- No 1{table QD Myrbetriq 50 MG 50 MG 0-27 - t} 50 MG 00:00: 00:00 00 :00 Myrbetriq Myrbetriq 2020-022- No 1{table QD Myrbetriq 50 MG 50 MG 0-27 - t} 50 MG 00:00: 00:00 00 :00 finasteride 2020-0 Yes 5mg QD Take [address] (PROSCAR) 5 10-27 by mouth [facility] mg tablet 00:00: daily . Medic al 00 Center Trospium Trospium 2021- No QD Trospium Chloride ER Chloride ER 10-26 Chloride 60 MG 60 MG 00:00: 00:00 ER 60 MG 00 :00 Proscar 5 Proscar 5 2- No 1{table QD Proscar 5 MG MG 6-08-20 t} MG 00:00: 00:00 00 :00 Proscar 5 Proscar 5 2021- No 1{table QD Proscar 5 MG MG 07-26 t} MG 00:00: 00:00 00 :00 Proscar 5 Proscar 5 2020-0 2- No 1{table QD Proscar 5 MG MG -08-20 t} MG 00:00: 00:00 00 :00 Escitalopra Escitalopra No 1{table QD Escitalopr m Oxalate m Oxalate t} am Oxalate 10 MG 10 MG 10 MG Plavix 75 Plavix 75 No 1{table QD Plavix 75 MG MG t} MG Lipitor 40 Lipitor 40 No 1{table QD Lipitor 40 MG MG t} MG Carbidopa-L Carbidopa-L No 1{table QD Carbidopa- evodopa evodopa t} Levodopa 25-100 MG 25-100 MG 25-100 MG Allopurinol Allopurinol No 1{table QD Allopurino 300 MG 300 MG t} l 300 MG Metformin Metformin No 1{table BID Metformin HCl 1000 MG HCl 1000 MG t_with_ HCl 1000 meals} MG Metoprolol Metoprolol No 1{table QD Metoprolol Succinate Succinate t} Succinate ER 25 MG ER 25 MG ER 25 MG Ezetimibe Ezetimibe No 1{table QD Ezetimibe 10 MG 10 MG t} 10 MG Vascepa 1 Vascepa 1 No 2{capsu BID Vascepa 1 GM GM les_wit GM h_meals } Carbidopa-L Carbidopa-L No 1{table QD Carbidopa- evodopa evodopa t} Levodopa 25-100 MG 25-100 MG 25-100 MG Plavix 75 Plavix 75 No 1{table QD Plavix 75 MG MG t} MG Rosuvastati Rosuvastati No 1{capsu QD Rosuvastat n Calcium n Calcium le} in Calcium 20 MG 20 MG 20 MG Tresiba 200 Tresiba 200 No Tresiba units/mL units/mL 200 units/mL Lipitor 40 Lipitor 40 No 1{table QD Lipitor 40 MG MG t} MG Irbesartan Irbesartan No 1{table QD Irbesartan 300 MG 300 MG t} 300 MG Allopurinol Allopurinol No 1{table QD Allopurino 300 MG 300 MG t} l 300 MG Metoprolol Metoprolol No 1{table QD Metoprolol Succinate Succinate t} Succinate ER 25 MG ER 25 MG ER 25 MG Escitalopra Escitalopra No 1{table QD Escitalopr m Oxalate m Oxalate t} am Oxalate 10 MG 10 MG 10 MG Metformin Metformin No 1{table BID Metformin HCl 1000 MG HCl 1000 MG t_with_ HCl 1000 meals} MG Folic Acid Folic Acid No 1{table QD Folic Acid 1 MG 1 MG t} 1 MG Metoprolol Metoprolol No 1{table QD Metoprolol Succinate Succinate t} Succinate ER 25 MG ER 25 MG ER 25 MG Rosuvastati Rosuvastati No 1{capsu QD Rosuvastat n Calcium n Calcium le} in Calcium 20 MG 20 MG 20 MG Ezetimibe Ezetimibe No 1{table QD Ezetimibe 10 MG 10 MG t} 10 MG Plavix 75 Plavix 75 No 1{table QD Plavix 75 MG MG t} MG Escitalopra Escitalopra No 1{table QD Escitalopr m Oxalate m Oxalate t} am Oxalate 10 MG 10 MG 10 MG Lipitor 40 Lipitor 40 No 1{table QD Lipitor 40 MG MG t} MG Carbidopa-L Carbidopa-L No 1{table QD Carbidopa- evodopa evodopa t} Levodopa 25-100 MG 25-100 MG 25-100 MG Allopurinol Allopurinol No 1{table QD Allopurino 300 MG 300 MG t} l 300 MG Irbesartan Irbesartan No 1{table QD Irbesartan 300 MG 300 MG t} 300 MG Tresiba 200 Tresiba 200 No Tresiba units/mL units/mL 200 units/mL Metformin Metformin No 1{table BID Metformin HCl 1000 MG HCl 1000 MG t_with_ HCl 1000 meals} MG Vascepa 1 Vascepa 1 No 2{capsu BID Vascepa 1 GM GM les_wit GM h_meals } Folic Acid Folic Acid No 1{table QD Folic Acid 1 MG 1 MG t} 1 MG Folic Acid Folic Acid No 1{table QD Folic Acid 1 MG 1 MG t} 1 MG Metformin Metformin No 1{table BID Metformin HCl 1000 MG HCl 1000 MG t_with_ HCl 1000 meals} MG Carbidopa-L Carbidopa-L No 1{table QD Carbidopa- evodopa evodopa t} Levodopa 25-100 MG 25-100 MG 25-100 MG Plavix 75 Plavix 75 No 1{table QD Plavix 75 MG MG t} MG Vascepa 1 Vascepa 1 No 2{capsu BID Vascepa 1 GM GM les_wit GM h_meals } Metoprolol Metoprolol No 1{table QD Metoprolol Succinate Succinate t} Succinate ER 25 MG ER 25 MG ER 25 MG Irbesartan Irbesartan No 1{table QD Irbesartan 300 MG 300 MG t} 300 MG Escitalopra Escitalopra No 1{table QD Escitalopr m Oxalate m Oxalate t} am Oxalate 10 MG 10 MG 10 MG Tresiba 200 Tresiba 200 No Tresiba units/mL units/mL 200 units/mL Rosuvastati Rosuvastati No 1{capsu QD Rosuvastat n Calcium n Calcium le} in Calcium 20 MG 20 MG 20 MG Lipitor 40 Lipitor 40 No 1{table QD Lipitor 40 MG MG t} MG Ezetimibe Ezetimibe No 1{table QD Ezetimibe 10 MG 10 MG t} 10 MG Allopurinol Allopurinol No 1{table QD Allopurino 300 MG 300 MG t} l 300 MG Folic Acid Folic Acid No 1{table QD Folic Acid 1 MG 1 MG t} 1 MG Metformin Metformin No 1{table BID Metformin HCl 1000 MG HCl 1000 MG t_with_ HCl 1000 meals} MG Carbidopa-L Carbidopa-L No 1{table QD Carbidopa- evodopa evodopa t} Levodopa 25-100 MG 25-100 MG 25-100 MG Plavix 75 Plavix 75 No 1{table QD Plavix 75 MG MG t} MG Vascepa 1 Vascepa 1 No 2{capsu BID Vascepa 1 GM GM les_wit GM h_meals } Metoprolol Metoprolol No 1{table QD Metoprolol Succinate Succinate t} Succinate ER 25 MG ER 25 MG ER 25 MG Irbesartan Irbesartan No 1{table QD Irbesartan 300 MG 300 MG t} 300 MG Escitalopra Escitalopra No 1{table QD Escitalopr m Oxalate m Oxalate t} am Oxalate 10 MG 10 MG 10 MG Tresiba 200 Tresiba 200 No Tresiba units/mL units/mL 200 units/mL Rosuvastati Rosuvastati No 1{capsu QD Rosuvastat n Calcium n Calcium le} in Calcium 20 MG 20 MG 20 MG Lipitor 40 Lipitor 40 No 1{table QD Lipitor 40 MG MG t} MG Ezetimibe Ezetimibe No 1{table QD Ezetimibe 10 MG 10 MG t} 10 MG Allopurinol Allopurinol No 1{table QD Allopurino 300 MG 300 MG t} l 300 MG Folic Acid Folic Acid No 1{table QD Folic Acid 1 MG 1 MG t} 1 MG Metformin Metformin No 1{table BID Metformin HCl 1000 MG HCl 1000 MG t_with_ HCl 1000 meals} MG Carbidopa-L Carbidopa-L No 1{table QD Carbidopa- evodopa evodopa t} Levodopa 25-100 MG 25-100 MG 25-100 MG Plavix 75 Plavix 75 No 1{table QD Plavix 75 MG MG t} MG Vascepa 1 Vascepa 1 No 2{capsu BID Vascepa 1 GM GM les_wit GM h_meals } Metoprolol Metoprolol No 1{table QD Metoprolol Succinate Succinate t} Succinate ER 25 MG ER 25 MG ER 25 MG Irbesartan Irbesartan No 1{table QD Irbesartan 300 MG 300 MG t} 300 MG Escitalopra Escitalopra No 1{table QD Escitalopr m Oxalate m Oxalate t} am Oxalate 10 MG 10 MG 10 MG Tresiba 200 Tresiba 200 No Tresiba units/mL units/mL 200 units/mL Rosuvastati Rosuvastati No 1{capsu QD Rosuvastat n Calcium n Calcium le} in Calcium 20 MG 20 MG 20 MG Lipitor 40 Lipitor 40 No 1{table QD Lipitor 40 MG MG t} MG Ezetimibe Ezetimibe No 1{table QD Ezetimibe 10 MG 10 MG t} 10 MG Allopurinol Allopurinol No 1{table QD Allopurino 300 MG 300 MG t} l 300 MG Folic Acid Folic Acid No 1{table QD Folic Acid 1 MG 1 MG t} 1 MG Metformin Metformin No 1{table BID Metformin HCl 1000 MG HCl 1000 MG t_with_ HCl 1000 meals} MG Carbidopa-L Carbidopa-L No 1{table QD Carbidopa- evodopa evodopa t} Levodopa 25-100 MG 25-100 MG 25-100 MG Plavix 75 Plavix 75 No 1{table QD Plavix 75 MG MG t} MG Vascepa 1 Vascepa 1 No 2{capsu BID Vascepa 1 GM GM les_wit GM h_meals } Metoprolol Metoprolol No 1{table QD Metoprolol Succinate Succinate t} Succinate ER 25 MG ER 25 MG ER 25 MG Irbesartan Irbesartan No 1{table QD Irbesartan 300 MG 300 MG t} 300 MG Escitalopra Escitalopra No 1{table QD Escitalopr m Oxalate m Oxalate t} am Oxalate 10 MG 10 MG 10 MG Tresiba 200 Tresiba 200 No Tresiba units/mL units/mL 200 units/mL Rosuvastati Rosuvastati No 1{capsu QD Rosuvastat n Calcium n Calcium le} in Calcium 20 MG 20 MG 20 MG Lipitor 40 Lipitor 40 No 1{table QD Lipitor 40 MG MG t} MG Ezetimibe Ezetimibe No 1{table QD Ezetimibe 10 MG 10 MG t} 10 MG Allopurinol Allopurinol No 1{table QD Allopurino 300 MG 300 MG t} l 300 MG Folic Acid Folic Acid No 1{table QD Folic Acid 1 MG 1 MG t} 1 MG Metformin Metformin No 1{table BID Metformin HCl 1000 MG HCl 1000 MG t_with_ HCl 1000 meals} MG Carbidopa-L Carbidopa-L No 1{table QD Carbidopa- evodopa evodopa t} Levodopa 25-100 MG 25-100 MG 25-100 MG Plavix 75 Plavix 75 No 1{table QD Plavix 75 MG MG t} MG Vascepa 1 Vascepa 1 No 2{capsu BID Vascepa 1 GM GM les_wit GM h_meals } Metoprolol Metoprolol No 1{table QD Metoprolol Succinate Succinate t} Succinate ER 25 MG ER 25 MG ER 25 MG Irbesartan Irbesartan No 1{table QD Irbesartan 300 MG 300 MG t} 300 MG Escitalopra Escitalopra No 1{table QD Escitalopr m Oxalate m Oxalate t} am Oxalate 10 MG 10 MG 10 MG Tresiba 200 Tresiba 200 No Tresiba units/mL units/mL 200 units/mL Rosuvastati Rosuvastati No 1{capsu QD Rosuvastat n Calcium n Calcium le} in Calcium 20 MG 20 MG 20 MG Lipitor 40 Lipitor 40 No 1{table QD Lipitor 40 MG MG t} MG Ezetimibe Ezetimibe No 1{table QD Ezetimibe 10 MG 10 MG t} 10 MG Allopurinol Allopurinol No 1{table QD Allopurino 300 MG 300 MG t} l 300 MG Folic Acid Folic Acid No 1{table QD Folic Acid 1 MG 1 MG t} 1 MG Metformin Metformin No 1{table BID Metformin HCl 1000 MG HCl 1000 MG t_with_ HCl 1000 meals} MG Carbidopa-L Carbidopa-L No 1{table QD Carbidopa- evodopa evodopa t} Levodopa 25-100 MG 25-100 MG 25-100 MG Plavix 75 Plavix 75 No 1{table QD Plavix 75 MG MG t} MG Vascepa 1 Vascepa 1 No 2{capsu BID Vascepa 1 GM GM les_wit GM h_meals } Metoprolol Metoprolol No 1{table QD Metoprolol Succinate Succinate t} Succinate ER 25 MG ER 25 MG ER 25 MG Irbesartan Irbesartan No 1{table QD Irbesartan 300 MG 300 MG t} 300 MG Escitalopra Escitalopra No 1{table QD Escitalopr m Oxalate m Oxalate t} am Oxalate 10 MG 10 MG 10 MG Tresiba 200 Tresiba 200 No Tresiba units/mL units/mL 200 units/mL Rosuvastati Rosuvastati No 1{capsu QD Rosuvastat n Calcium n Calcium le} in Calcium 20 MG 20 MG 20 MG Lipitor 40 Lipitor 40 No 1{table QD Lipitor 40 MG MG t} MG Ezetimibe Ezetimibe No 1{table QD Ezetimibe 10 MG 10 MG t} 10 MG Allopurinol Allopurinol No 1{table QD Allopurino 300 MG 300 MG t} l 300 MG Folic Acid Folic Acid No 1{table QD Folic Acid 1 MG 1 MG t} 1 MG Metformin Metformin No 1{table BID Metformin HCl 1000 MG HCl 1000 MG t_with_ HCl 1000 meals} MG Carbidopa-L Carbidopa-L No 1{table QD Carbidopa- evodopa evodopa t} Levodopa 25-100 MG 25-100 MG 25-100 MG Plavix 75 Plavix 75 No 1{table QD Plavix 75 MG MG t} MG Vascepa 1 Vascepa 1 No 2{capsu BID Vascepa 1 GM GM les_wit GM h_meals } Metoprolol Metoprolol No 1{table QD Metoprolol Succinate Succinate t} Succinate ER 25 MG ER 25 MG ER 25 MG Irbesartan Irbesartan No 1{table QD Irbesartan 300 MG 300 MG t} 300 MG Escitalopra Escitalopra No 1{table QD Escitalopr m Oxalate m Oxalate t} am Oxalate 10 MG 10 MG 10 MG Tresiba 200 Tresiba 200 No Tresiba units/mL units/mL 200 units/mL Rosuvastati Rosuvastati No 1{capsu QD Rosuvastat n Calcium n Calcium le} in Calcium 20 MG 20 MG 20 MG Lipitor 40 Lipitor 40 No 1{table QD Lipitor 40 MG MG t} MG Ezetimibe Ezetimibe No 1{table QD Ezetimibe 10 MG 10 MG t} 10 MG Allopurinol Allopurinol No 1{table QD Allopurino 300 MG 300 MG t} l 300 MG Folic Acid Folic Acid No 1{table QD Folic Acid 1 MG 1 MG t} 1 MG Metformin Metformin No 1{table BID Metformin HCl 1000 MG HCl 1000 MG t_with_ HCl 1000 meals} MG Carbidopa-L Carbidopa-L No 1{table QD Carbidopa- evodopa evodopa t} Levodopa 25-100 MG 25-100 MG 25-100 MG Plavix 75 Plavix 75 No 1{table QD Plavix 75 MG MG t} MG Vascepa 1 Vascepa 1 No 2{capsu BID Vascepa 1 GM GM les_wit GM h_meals } Metoprolol Metoprolol No 1{table QD Metoprolol Succinate Succinate t} Succinate ER 25 MG ER 25 MG ER 25 MG Irbesartan Irbesartan No 1{table QD Irbesartan 300 MG 300 MG t} 300 MG Escitalopra Escitalopra No 1{table QD Escitalopr m Oxalate m Oxalate t} am Oxalate 10 MG 10 MG 10 MG Tresiba 200 Tresiba 200 No Tresiba units/mL units/mL 200 units/mL Rosuvastati Rosuvastati No 1{capsu QD Rosuvastat n Calcium n Calcium le} in Calcium 20 MG 20 MG 20 MG Lipitor 40 Lipitor 40 No 1{table QD Lipitor 40 MG MG t} MG Ezetimibe Ezetimibe No 1{table QD Ezetimibe 10 MG 10 MG t} 10 MG Allopurinol Allopurinol No 1{table QD Allopurino 300 MG 300 MG t} l 300 MG Folic Acid Folic Acid No 1{table QD Folic Acid 1 MG 1 MG t} 1 MG Metformin Metformin No 1{table BID Metformin HCl 1000 MG HCl 1000 MG t_with_ HCl 1000 meals} MG Carbidopa-L Carbidopa-L No 1{table QD Carbidopa- evodopa evodopa t} Levodopa 25-100 MG 25-100 MG 25-100 MG Plavix 75 Plavix 75 No 1{table QD Plavix 75 MG MG t} MG Vascepa 1 Vascepa 1 No 2{capsu BID Vascepa 1 GM GM les_wit GM h_meals } Metoprolol Metoprolol No 1{table QD Metoprolol Succinate Succinate t} Succinate ER 25 MG ER 25 MG ER 25 MG Irbesartan Irbesartan No 1{table QD Irbesartan 300 MG 300 MG t} 300 MG Escitalopra Escitalopra No 1{table QD Escitalopr m Oxalate m Oxalate t} am Oxalate 10 MG 10 MG 10 MG Tresiba 200 Tresiba 200 No Tresiba units/mL units/mL 200 units/mL Rosuvastati Rosuvastati No 1{capsu QD Rosuvastat n Calcium n Calcium le} in Calcium 20 MG 20 MG 20 MG Lipitor 40 Lipitor 40 No 1{table QD Lipitor 40 MG MG t} MG Ezetimibe Ezetimibe No 1{table QD Ezetimibe 10 MG 10 MG t} 10 MG Allopurinol Allopurinol No 1{table QD Allopurino 300 MG 300 MG t} l 300 MG Metformin Metformin No 1{table BID Metformin HCl 1000 MG HCl 1000 MG t_with_ HCl 1000 meals} MG Ezetimibe Ezetimibe No 1{table QD Ezetimibe 10 MG 10 MG t} 10 MG Vascepa 1 Vascepa 1 No 2{capsu BID Vascepa 1 GM GM les_wit GM h_meals } Tresiba 200 Tresiba 200 No Tresiba units/mL units/mL 200 units/mL Rosuvastati Rosuvastati No 1{capsu QD Rosuvastat n Calcium n Calcium le} in Calcium 20 MG 20 MG 20 MG Plavix 75 Plavix 75 No 1{table QD Plavix 75 MG MG t} MG Escitalopra Escitalopra No 1{table QD Escitalopr m Oxalate m Oxalate t} am Oxalate 10 MG 10 MG 10 MG Metoprolol Metoprolol No 1{table QD Metoprolol Succinate Succinate t} Succinate ER 25 MG ER 25 MG ER 25 MG Carbidopa-L Carbidopa-L No 1{table QD Carbidopa- evodopa evodopa t} Levodopa 25-100 MG 25-100 MG 25-100 MG Folic Acid Folic Acid No 1{table QD Folic Acid 1 MG 1 MG t} 1 MG Allopurinol Allopurinol No 1{table QD Allopurino 300 MG 300 MG t} l 300 MG Irbesartan Irbesartan No 1{table QD Irbesartan 300 MG 300 MG t} 300 MG Lipitor 40 Lipitor 40 No 1{table QD Lipitor 40 MG MG t} MG Folic Acid Folic Acid No 1{table QD Folic Acid 1 MG 1 MG t} 1 MG Allopurinol Allopurinol No 1{table QD Allopurino 300 MG 300 MG t} l 300 MG Metformin Metformin No 1{table BID Metformin HCl 1000 MG HCl 1000 MG t_with_ HCl 1000 meals} MG Escitalopra Escitalopra No 1{table QD Escitalopr m Oxalate m Oxalate t} am Oxalate 10 MG 10 MG 10 MG Lipitor 40 Lipitor 40 No 1{table QD Lipitor 40 MG MG t} MG Plavix 75 Plavix 75 No 1{table QD Plavix 75 MG MG t} MG Tresiba 200 Tresiba 200 No Tresiba units/mL units/mL 200 units/mL Rosuvastati Rosuvastati No 1{capsu QD Rosuvastat n Calcium n Calcium le} in Calcium 20 MG 20 MG 20 MG Metoprolol Metoprolol No 1{table QD Metoprolol Succinate Succinate t} Succinate ER 25 MG ER 25 MG ER 25 MG Vascepa 1 Vascepa 1 No 2{capsu BID Vascepa 1 GM GM les_wit GM h_meals } Irbesartan Irbesartan No 1{table QD Irbesartan 300 MG 300 MG t} 300 MG Carbidopa-L Carbidopa-L No 1{table QD Carbidopa- evodopa evodopa t} Levodopa 25-100 MG 25-100 MG 25-100 MG Ezetimibe Ezetimibe No 1{table QD Ezetimibe 10 MG 10 MG t} 10 MG Folic Acid Folic Acid No 1{table QD Folic Acid 1 MG 1 MG t} 1 MG Allopurinol Allopurinol No 1{table QD Allopurino 300 MG 300 MG t} l 300 MG Metformin Metformin No 1{table BID Metformin HCl 1000 MG HCl 1000 MG t_with_ HCl 1000 meals} MG Escitalopra Escitalopra No 1{table QD Escitalopr m Oxalate m Oxalate t} am Oxalate 10 MG 10 MG 10 MG Lipitor 40 Lipitor 40 No 1{table QD Lipitor 40 MG MG t} MG Plavix 75 Plavix 75 No 1{table QD Plavix 75 MG MG t} MG Tresiba 200 Tresiba 200 No Tresiba units/mL units/mL 200 units/mL Rosuvastati Rosuvastati No 1{capsu QD Rosuvastat n Calcium n Calcium le} in Calcium 20 MG 20 MG 20 MG Metoprolol Metoprolol No 1{table QD Metoprolol Succinate Succinate t} Succinate ER 25 MG ER 25 MG ER 25 MG Vascepa 1 Vascepa 1 No 2{capsu BID Vascepa 1 GM GM les_wit GM h_meals } Irbesartan Irbesartan No 1{table QD Irbesartan 300 MG 300 MG t} 300 MG Carbidopa-L Carbidopa-L No 1{table QD Carbidopa- evodopa evodopa t} Levodopa 25-100 MG 25-100 MG 25-100 MG Ezetimibe Ezetimibe No 1{table QD Ezetimibe 10 MG 10 MG t} 10 MG Folic Acid Folic Acid No 1{table QD Folic Acid 1 MG 1 MG t} 1 MG Ezetimibe Ezetimibe No 1{table QD Ezetimibe 10 MG 10 MG t} 10 MG Vascepa 1 Vascepa 1 No 2{capsu BID Vascepa 1 GM GM les_wit GM h_meals } Lipitor 40 Lipitor 40 No 1{table QD Lipitor 40 MG MG t} MG Plavix 75 Plavix 75 No 1{table QD Plavix 75 MG MG t} MG Escitalopra Escitalopra No 1{table QD Escitalopr m Oxalate m Oxalate t} am Oxalate 10 MG 10 MG 10 MG Rosuvastati Rosuvastati No 1{capsu QD Rosuvastat n Calcium n Calcium le} in Calcium 20 MG 20 MG 20 MG Allopurinol Allopurinol No 1{table QD Allopurino 300 MG 300 MG t} l 300 MG Metformin Metformin No 1{table BID Metformin HCl 1000 MG HCl 1000 MG t_with_ HCl 1000 meals} MG Irbesartan Irbesartan No 1{table QD Irbesartan 300 MG 300 MG t} 300 MG Carbidopa-L Carbidopa-L No 1{table QD Carbidopa- evodopa evodopa t} Levodopa 25-100 MG 25-100 MG 25-100 MG Tresiba 200 Tresiba 200 No Tresiba units/mL units/mL 200 units/mL Metoprolol Metoprolol No 1{table QD Metoprolol Succinate Succinate t} Succinate ER 25 MG ER 25 MG ER 25 MG Folic Acid Folic Acid No 1{table QD Folic Acid 1 MG 1 MG t} 1 MG Allopurinol Allopurinol No 1{table QD Allopurino 300 MG 300 MG t} l 300 MG Metformin Metformin No 1{table BID Metformin HCl 1000 MG HCl 1000 MG t_with_ HCl 1000 meals} MG Escitalopra Escitalopra No 1{table QD Escitalopr m Oxalate m Oxalate t} am Oxalate 10 MG 10 MG 10 MG Lipitor 40 Lipitor 40 No 1{table QD Lipitor 40 MG MG t} MG Plavix 75 Plavix 75 No 1{table QD Plavix 75 MG MG t} MG Tresiba 200 Tresiba 200 No Tresiba units/mL units/mL 200 units/mL Rosuvastati Rosuvastati No 1{capsu QD Rosuvastat n Calcium n Calcium le} in Calcium 20 MG 20 MG 20 MG Metoprolol Metoprolol No 1{table QD Metoprolol Succinate Succinate t} Succinate ER 25 MG ER 25 MG ER 25 MG Vascepa 1 Vascepa 1 No 2{capsu BID Vascepa 1 GM GM les_wit GM h_meals } Irbesartan Irbesartan No 1{table QD Irbesartan 300 MG 300 MG t} 300 MG Carbidopa-L Carbidopa-L No 1{table QD Carbidopa- evodopa evodopa t} Levodopa 25-100 MG 25-100 MG 25-100 MG Ezetimibe Ezetimibe No 1{table QD Ezetimibe 10 MG 10 MG t} 10 MG Ezetimibe Ezetimibe No 1{table QD Ezetimibe 10 MG 10 MG t} 10 MG Folic Acid Folic Acid No 1{table QD Folic Acid 1 MG 1 MG t} 1 MG Lipitor 40 Lipitor 40 No 1{table QD Lipitor 40 MG MG t} MG Allopurinol Allopurinol No 1{table QD Allopurino 300 MG 300 MG t} l 300 MG Vascepa 1 Vascepa 1 No 2{capsu BID Vascepa 1 GM GM les_wit GM h_meals } Tresiba 200 Tresiba 200 No Tresiba units/mL units/mL 200 units/mL Carbidopa-L Carbidopa-L No 1{table QD Carbidopa- evodopa evodopa t} Levodopa 25-100 MG 25-100 MG 25-100 MG Metformin Metformin No 1{table BID Metformin HCl 1000 MG HCl 1000 MG t_with_ HCl 1000 meals} MG Plavix 75 Plavix 75 No 1{table QD Plavix 75 MG MG t} MG Metoprolol Metoprolol No 1{table QD Metoprolol Succinate Succinate t} Succinate ER 25 MG ER 25 MG ER 25 MG Rosuvastati Rosuvastati No 1{capsu QD Rosuvastat n Calcium n Calcium le} in Calcium 20 MG 20 MG 20 MG Irbesartan Irbesartan No 1{table QD Irbesartan 300 MG 300 MG t} 300 MG Escitalopra Escitalopra No 1{table QD Escitalopr m Oxalate m Oxalate t} am Oxalate 10 MG 10 MG 10 MG Ezetimibe Ezetimibe No 1{table QD Ezetimibe 10 MG 10 MG t} 10 MG Folic Acid Folic Acid No 1{table QD Folic Acid 1 MG 1 MG t} 1 MG Lipitor 40 Lipitor 40 No 1{table QD Lipitor 40 MG MG t} MG Allopurinol Allopurinol No 1{table QD Allopurino 300 MG 300 MG t} l 300 MG Vascepa 1 Vascepa 1 No 2{capsu BID Vascepa 1 GM GM les_wit GM h_meals } Tresiba 200 Tresiba 200 No Tresiba units/mL units/mL 200 units/mL Carbidopa-L Carbidopa-L No 1{table QD Carbidopa- evodopa evodopa t} Levodopa 25-100 MG 25-100 MG 25-100 MG Metformin Metformin No 1{table BID Metformin HCl 1000 MG HCl 1000 MG t_with_ HCl 1000 meals} MG Plavix 75 Plavix 75 No 1{table QD Plavix 75 MG MG t} MG Metoprolol Metoprolol No 1{table QD Metoprolol Succinate Succinate t} Succinate ER 25 MG ER 25 MG ER 25 MG Rosuvastati Rosuvastati No 1{capsu QD Rosuvastat n Calcium n Calcium le} in Calcium 20 MG 20 MG 20 MG Irbesartan Irbesartan No 1{table QD Irbesartan 300 MG 300 MG t} 300 MG Escitalopra Escitalopra No 1{table QD Escitalopr m Oxalate m Oxalate t} am Oxalate 10 MG 10 MG 10 MG Folic Acid Folic Acid No 1{table QD Folic Acid 1 MG 1 MG t} 1 MG Allopurinol Allopurinol No 1{table QD Allopurino 300 MG 300 MG t} l 300 MG Metformin Metformin No 1{table BID Metformin HCl 1000 MG HCl 1000 MG t_with_ HCl 1000 meals} MG Escitalopra Escitalopra No 1{table QD Escitalopr m Oxalate m Oxalate t} am Oxalate 10 MG 10 MG 10 MG Lipitor 40 Lipitor 40 No 1{table QD Lipitor 40 MG MG t} MG Plavix 75 Plavix 75 No 1{table QD Plavix 75 MG MG t} MG Tresiba 200 Tresiba 200 No Tresiba units/mL units/mL 200 units/mL Rosuvastati Rosuvastati No 1{capsu QD Rosuvastat n Calcium n Calcium le} in Calcium 20 MG 20 MG 20 MG Metoprolol Metoprolol No 1{table QD Metoprolol Succinate Succinate t} Succinate ER 25 MG ER 25 MG ER 25 MG Vascepa 1 Vascepa 1 No 2{capsu BID Vascepa 1 GM GM les_wit GM h_meals } Irbesartan Irbesartan No 1{table QD Irbesartan 300 MG 300 MG t} 300 MG Carbidopa-L Carbidopa-L No 1{table QD Carbidopa- evodopa evodopa t} Levodopa 25-100 MG 25-100 MG 25-100 MG Ezetimibe Ezetimibe No 1{table QD Ezetimibe 10 MG 10 MG t} 10 MG Ezetimibe Ezetimibe No 1{table QD Ezetimibe 10 MG 10 MG t} 10 MG Folic Acid Folic Acid No 1{table QD Folic Acid 1 MG 1 MG t} 1 MG Lipitor 40 Lipitor 40 No 1{table QD Lipitor 40 MG MG t} MG Allopurinol Allopurinol No 1{table QD Allopurino 300 MG 300 MG t} l 300 MG Vascepa 1 Vascepa 1 No 2{capsu BID Vascepa 1 GM GM les_wit GM h_meals } Tresiba 200 Tresiba 200 No Tresiba units/mL units/mL 200 units/mL Carbidopa-L Carbidopa-L No 1{table QD Carbidopa- evodopa evodopa t} Levodopa 25-100 MG 25-100 MG 25-100 MG Metformin Metformin No 1{table BID Metformin HCl 1000 MG HCl 1000 MG t_with_ HCl 1000 meals} MG Plavix 75 Plavix 75 No 1{table QD Plavix 75 MG MG t} MG Metoprolol Metoprolol No 1{table QD Metoprolol Succinate Succinate t} Succinate ER 25 MG ER 25 MG ER 25 MG Rosuvastati Rosuvastati No 1{capsu QD Rosuvastat n Calcium n Calcium le} in Calcium 20 MG 20 MG 20 MG Irbesartan Irbesartan No 1{table QD Irbesartan 300 MG 300 MG t} 300 MG Escitalopra Escitalopra No 1{table QD Escitalopr m Oxalate m Oxalate t} am Oxalate 10 MG 10 MG 10 MG Tresiba 200 Tresiba 200 No Tresiba units/mL units/mL 200 units/mL Irbesartan Irbesartan No 1{table QD Irbesartan 300 MG 300 MG t} 300 MG Vascepa 1 Vascepa 1 No 2{capsu BID Vascepa 1 GM GM les_wit GM h_meals } Rosuvastati Rosuvastati No 1{capsu QD Rosuvastat n Calcium n Calcium le} in Calcium 20 MG 20 MG 20 MG Folic Acid Folic Acid No 1{table QD Folic Acid 1 MG 1 MG t} 1 MG Ezetimibe Ezetimibe No 1{table QD Ezetimibe 10 MG 10 MG t} 10 MG Flomax 0.4 Flomax 0.4 2021- No 1{capsu QD Flomax 0.4 MG MG 05-28 le} MG 00:00 :00 Flomax 0.4 Flomax 0.4 No 1{capsu QD Flomax 0.4 MG MG 05-28 le} MG 00:00 :00 Flomax 0.4 Flomax 0.4 No 1{capsu QD Flomax 0.4 MG MG 05-28 le} MG 00:00 :00 Vital Signs Vital Name Observation Time Observation Value Comments Source height 2021-08-30 15:45:00 69 [in_i] [facility] weight 2021-08-30 15:45:00 250 [lb_av] [facility] temperature 2021-08-30 15:45:00 97.4 [degF] [facility] bmi 2021-08-30 15:45:00 36.91 kg/m2 [facility] oximetry 2021-08-30 15:45:00 97 % [facility] respiratory rate 2021-08-30 15:45:00 16 /min Comm on [facility] blood pressure 2021-08-30 15:45:00 118 mm[Hg] Common [facility] - systolic [facility] blood pressure 2021-08-30 15:45:00 72 mm[Hg] Common [facility] - diastolic [facility] height 2021-02-21 13:00:00 69 [in_i] [facility] weight 2021-02-21 13:00:00 253 [lb_av] [facility] temperature 2021-02-21 13:00:00 98.1 [degF] [facility] bmi 2021-02-21 13:00:00 37.36 kg/m2 [facility] oximetry 2021-02-21 13:00:00 99 % [facility] respiratory rate 2021-02-21 13:00:00 18 /min Comm on [facility] blood pressure 2021-02-21 13:00:00 135 mm[Hg] Common [facility] - systolic [facility] blood pressure 2021-02-21 13:00:00 73 mm[Hg] Common [facility] - diastolic [facility] HEIGHT 2021-01-31 10:42:00 182.9 cm WEIGHT 2021-01-31 10:42:00 112.946 kg HEIGHT 2021-01-31 10:42:00 182.9 cm WEIGHT 2021-01-31 10:42:00 112.946 kg HEIGHT 2021-01-31 10:42:00 182.9 cm WEIGHT 2021-01-31 10:42:00 112.946 kg WEIGHT 2021-01-29 12:06:00 113.853 kg HEIGHT 2021-01-29 12:06:00 182.9 cm WEIGHT 2021-01-29 12:06:00 113.853 kg HEIGHT 2021-01-29 12:06:00 182.9 cm WEIGHT 2021-01-29 12:06:00 113.853 kg HEIGHT 2021-01-29 12:06:00 182.9 cm height 2021-01-25 13:00:00 69 [in_i] [facility] weight 2021-01-25 13:00:00 250 [lb_av] [facility] temperature 2021-01-25 13:00:00 97.5 [degF] [facility] bmi 2021-01-25 13:00:00 36.91 kg/m2 [facility] oximetry 2021-01-25 13:00:00 96 % [facility] respiratory rate 2021-01-25 13:00:00 20 /min Comm on [facility] height 2020-12-20 16:15:00 69 [in_i] [facility] weight 2020-12-20 16:15:00 253 [lb_av] [facility] temperature 2020-12-20 16:15:00 97.5 [degF] [facility] bmi 2020-12-20 16:15:00 37.36 kg/m2 [facility] oximetry 2020-12-20 16:15:00 98 % [facility] blood pressure 2020-12-20 16:15:00 141 mm[Hg] [facility] blood pressure 2020-12-20 16:15:00 63 mm[Hg] [facility] Systolic blood 2021-01-31 19:58:00 130 mm[Hg] [facility] Diastolic blood 2021-01-31 19:58:00 59 mm[Hg] [facility] Heart rate 2021-01-31 19:58:00 65 /min [facility] Respiratory rate 2021-01-31 19:58:00 18 /min [facility] Oxygen saturation in 2021-01-31 18:30:00 96 /min [facility] Arterial blood by Medical Ce nter Pulse oximetry Body temperature 2021-01-31 10:42:00 35.56 Breanne [facility] Body height 2021-01-31 10:42:00 182.9 cm [facility] Body weight 2021-01-31 10:42:00 112.946 kg [facility] BMI 2021-01-31 10:42:00 33.77 kg/m2 [facility] Procedures Procedure Date / Time Performing Clinician Source Performed POCT-GLUCOSE METER 2021-01-31 18:12:00 Calin Gutierrez [facility] POCT-GLUCOSE METER 2021-01-31 17:27:00 Calin Gutierrez [facility] ANGIOGRAM, CORONARY, WITH 2021-01-31 16:06:[address] [facility] LEFT HEART CATHETERIZATION [facility] ECG 12-LEAD 2021-01-31 12:24:58 Calin Gutierrez [facility] ECG 12-LEAD 2021-01-31 12:24:58 Unknown, [id number] Doctor [facility] TYPE AND SCREEN, AUTOMATED 2021-01-31 11:53:00 Gutierrez Carrasquillo [facility] VASCULAR DIAGRAM -SCAN 2021-01-31 00:00:00 Provider, Default [facility] CARDIAC CATH REPORT - SCAN 2021-01-31 00:00:00 Provider, Default [facility] CBC W/PLT COUNT & AUTO 2021-01-29 12:53:00 [facility] BASIC METABOLIC PANEL 2021-01-29 12:53:00 [facility] CBC W/PLT COUNT & AUTO 2021-01-29 12:53:00 [facility] SARS-COV2/RT-PCR ([facility] & 2021-01-29 12:41:00 [facility] REF LABS) [facility] Center Plan of Care Planned Activity Planned Date Details Comments Source Future Scheduled 2021-11-14 INFLUENZA VACCINE Method [facility] Test 03:16:58 [code = INFLUENZA VACCINE] Future Scheduled 2021-11-14 HEPATITIS B VACCINES Met [facility] Test 03:16:58 (1 of 3 - 3-dose series) [code = HEPATITIS B VACCINES (1 of 3 - 3-dose series)] Future Scheduled 2021-11-14 Hepatitis C screening [facility] Test 03:16:58 (procedure) [code = 646865972] Future Scheduled 2021-11-14 COLONOSCOPY SCREENING [facility] Test 03:16:58 [code = COLONOSCOPY SCREENING] Future Scheduled 2021-11-14 SHINGLES VACCINES (1 Met [facility] Test 03:16:58 of 2) [code = SHINGLES VACCINES (1 of 2)] Future Scheduled 2021-11-14 65+ [facility] 03:16:58 VACCINE (1 - PCV) [code = 65+ PNEUMOCOCCAL VACCINE (1 - PCV)] Future Scheduled 2021-11-14 COVID-19 VACCINE (4 - Me [facility] Test 03:16:58 Booster for Pfizer series) [code = COVID-19 VACCINE (4 - Booster for Pfizer series)] Future Scheduled 2021-10-25 INFLUENZA VACCINE (#1) [facility] Test 00:00:00 [code = INFLUENZA Medical Ce nter VACCINE (#1)] Future Scheduled 2021-02-24 DEPRESSION SCREENING [facility] Test 00:00:00 (12+) [code = Medical Center DEPRESSION SCREENING (12+)] Future Scheduled 2021-02-24 FALLS RISK SCREENING [facility] Test 00:00:00 [code = FALLS RISK Medical C enter SCREENING] Future Scheduled 2020-09-27 COVID-19 VACCINE (3 - [facility] Test 00:00:00 Booster for Pfizer Medical C enter series) [code = COVID-19 VACCINE (3 - Booster for Pfizer series)] Future Scheduled 2015-08-[address] [facility] 00[facility] measurement Medical Center (procedure) [code = 10778663] Future Scheduled 2014-12-[address] [facility] Test 00:00:00 WELLNESS (YEAR 2 or Medical Center FIRST YEAR if no IPPE) [code = MEDICARE ANNUAL WELLNESS (YEAR 2 or FIRST YEAR if no IPPE)] Future Scheduled [address] [facility] Test 00:00:00 aneurysm screening Medical C enter (procedure) [code = 113358820] Future Scheduled 1999 SHINGLES VACCINES ([address] [facility] Test 00:00:00 of 2) [code = SHINGLES Medic al Center VACCINES (1 of 2)] Future Scheduled 1968-01-17 DTAP/TDAP/TD VACCINES [facility] Test 00:00:00 (1 - Tdap) [code = Medical C enter DTAP/TDAP/TD VACCINES (1 - Tdap)] Future Scheduled 1967 HEPATITIS C SCREENING [facility] 00:00:00 [code = HEPATITIS C Medical Center SCREENING] Future Scheduled 1959 DIABETIC EYE EXAM [facility] Test 00:00:00 [code = DIABETIC EYE Medical Center EXAM] Future Scheduled [address] [facility] Test 00:[facility]:00 examination Medical Center (regime/therapy) [code = 546931629] Future Scheduled 1959 Urine screening for [facility] Test 00:00:00 protein (procedure) Medical Center [code = 175725114] Future Scheduled 1955 PNEUMOCOCCAL 65+ YRS [facility] Test 00:00:00 (1 - PCV) [code = Medical Ce nter PNEUMOCOCCAL 65+ YRS (1 - PCV)] Future Scheduled [address] [facility] Test 00:00:00 (combo) [code = CT Medical C enter Colonography (combo)] Future Scheduled [address] [facility] Test 00:00:00 malignant neoplasm of Medica l Center colon (procedure) [code = 565388106] Future Scheduled [address] [facility] Test 00:00:00 malignant neoplasm of Medica l Center colon (procedure) [code = 845379060] Future Scheduled [address] [facility] Test 00:00:00 malignant neoplasm of Medica l Center colon (procedure) [code = 560023648] Future Scheduled [address] [facility] Test 00:00:00 malignant neoplasm of Medica l Center colon (procedure) [code = 432195382] Future Scheduled 1949 Sigmoidoscopy [facility]code [facility] 00:[facility] S[facility]oidoscopy] Medical Cente r Encounters Start End Encounter Admission Attending Care Care Encounter Source Date/Time Date/Time Type Type Clinicians Facility Department ID 2021-09-11 Outpatient Nicolas, STJOVANNALC STLC [id number] Common 14:35:01 Kash [facility] 2021-09-03 Outpatient Nicolas, STLMLC STLMLC [id number] Common 09:54:01 Kash [id number] [facility] 2021-03-21 Outpatient Nicolas, STLMLC STLMLC [id number] Common 14:02:16 Kash [id number] [facility] 2021-03-21 Outpatient Nicolas, STLMLC STLMLC [id number] Common 12:48:41 Kash [id number] [facility] 2021-03-21 Outpatient Nicolas, STLMLC STLMLC [id number] Common 12:41:21 Kash [id number] [facility] 2021-12-03 2021-12-03 (TEL) STLC STLC [id number] Co mmon 00:00:00 00:00:00 [facility] 2021-11-29 2021-11-29 [facility] [id number] Co mmon 00:00:00 00:00:00 VISIT [facility] ESTAB PT - CHI LEVEL 4 [facility] 2021-11-20 2021-11-20 (TEL) STLMLC STLMLC [id number] Co mmon 00:00:00 00:00:00 [facility] 2021-09-13 2021-09-13 (TEL) STLMLC STLMLC [id number] Co mmon 00:00:00 00:00:00 [facility] 2021-09-10 2021-09-10 (TEL) STLMLC STLMLC [id number] Co mmon 00:00:00 00:00:00 [facility] 2021-09-03 2021-09-03 ([place]) Nurse STLMLC STLMLC [id number] Common 00:00:00 00:00:00 Visit [facility] 2021-08-30 2021-08-30 OFFICE STLMLC STLMLC [id number] Co mmon 00:00:00 00:00:00 VISIT [facility] PT - CHI LEVEL 4 [facility] 2021-08-13 2021-08-13 (TEL) STLMLC STLMLC [id number] Co mmon 00:00:00 00:00:00 [facility] 2021-08-01 2021-08-01 ([place]) Nurse STLMLC STLMLC [id number] Common 00:00:00 00:00:00 Visit [facility] 2021-07-25 2021-07-25 ([place]) Nurse STLMLC STLMLC [id number] Common 00:00:00 00:00:00 Visit [facility] 2021-07-17 2021-07-17 OFFICE STLMLC STLMLC [id number] Co mmon 00:00:00 00:00:00 VISIT [facility] PT - CHI LEVEL 1 [facility] 2021-07-09 2021-07-09 ([place]) Nurse STLMLC STLMLC [id number] Common 00:00:00 00:00:00 Visit [facility] 2021-07-03 2021-07-03 ([place]) Nurse STLMLC STLMLC [id number] Common 00:00:00 00:00:00 Visit [facility] 2021-06-26 2021-06-26 ([place]) [facility] [id number] Common 00:00:00 00:00:00 Visit [facility] 2021-06-12 2021-06-12 ([place]) Nurse [facility] [id number] Common 00:00:00 00:00:00 Visit [facility] 2021-06-05 2021-06-05 ([place]) Nurse [facility] [id number] Common 00:00:00 00:00:00 Visit [facility] 2021-02-21 2021-02-21 [facility] [id number] Co mmon 00:00:00 00:00:00 VISIT [facility] LEVEL 1 [facility] 2021-01-31 2021-01-31 Outpatient [facility] [id number] [address] [place] [address] 00:00:00 23:59:00 Juan Jose Medicin e 2021-01-31 2021-01-31 Hospital [facility], [facility] [id number] 10:34:00 20:31:00 Encounter [facility] 2021-01-31 2021-01-31 Outpatient [facility] Surgery [id number] [facility] 10:34:00 20:31:00 [facility] 2021-01-31 2021-01-31 Surgery Calin, [facility] [id number] 16:12:00 18:47:00 [facility] 2021-01-31 2021-01-31 Orders [facility] [id number] 00:00:00 00:00:00 [facility] 2021-01-31 2021-01-31 Travel [facility] [id number] [facility] 00:[facility] 00:00:00 [facility] 2021-01-29 2021-01-29 Outpatient [facility] SLE [id number] [facility] 11:52:04 11:52:04 2021-01-292021-01-29 Office Gutierrez Carrasquillo [facility] [id number] [facility] 11:30:00 11:45:00 Visit Doug Murphy [facility] 2021-01-29 2021-01-29 Travel [facility] [id number] [facility] 00:[facility] 00:00:00 [facility] 2021-01-25 2021-01-25 OFFICE [facility] [id number] Co mmon 00:00:00 00:00:00 [facility]IT [facility] - [facility] LEVEL 2 [facility] 2020-12-20 2020-12-20 [facility] [id number] Co mmon 00:00:00 00:00:00 VISIT EST [facility] PT LEVEL 3 - [facility] 2020-12-06 2020-12-[address] 00:00:00 00:00:00 NATHAN [address] 2020-12-06 2020-12-[address] 00:00:00 00:00:00 NATHAN [address] 2020-10-26 2020-10-26 Outpatient STLC STLC [id number] Common 00:00:00 00:00:00 [facility] 2020-07-26 2020-07-26 Outpatient STLMLC STLMLC [id number] Common 00:00:00 00:00:00 [facility] 2020-05-31 2020-05-31 Outpatient STLMLC STLMLC [id number] Common 00:00:00 00:00:00 [facility] 2020-01-01 2020-01-01 Refill Vandana [facility] [id number] 00:00:00 00:00:00 Margarita John [id number] Smooth [id number] Cassius [phone] [address] 2019-12-29 2019-12-29 Telephone Dick [facility] [id number] 00:00:00 00:00:00 Lilly John [id number] Leroy [id number] Professio [phone] [address] 2019-12-22 2019-12-22 Telephone [facility] [id number] 00:00:00 00:00:00 Margarita John [id number] Leroy [id number] Professio [phone] [address] 2019-11-22 2019-11-22 Office [facility] [id number] 16:02:17 16:33:28 Visit Lilly John [id number] Leroy [id number] Professio [id number] [address] 2019-11-22 2019-11-22 Outpatient R [facility] [id number] Univers 16:00:00 16:00:00 [facility] 2019-07-05 2019-07-05 Outpatient R [facility] [id number] Univers 10:00:00 10:00:00 [facility] 2019-03-08 2019-03-08 Outpatient R [facility] [id number] Univers 10:00:00 10:40:33 [facility] Results Test Description Test Time Test Comments Results Result Comments Source POC-Glucose meter 2021-01-31 18:23:43 Test Item Value Reference Range Interpretation Comme nts POC-Glucose Meter (test code = 88 mg/dL 70-110 : TESTED AT [facility] [address] [facility] 1538) [facility], 770 30: 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/Techni madeleine ID = [id number] for Terrie Valenzuela Lab Interpretation (test code = Normal 50224-3) [id number] 18:23:43 Test Item Value Reference Range Interpretation Comments POC-GLUCOSE METER 88 mg/dL 70-110 : TESTED A T [facility] 6720 (BEAKER) (test code = BERTDESIREE R [facility], 1538) [address]: 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/Techni madeleine ID = [id number] for Terrie Cleaning POCT-GLUCOSE [id number] 17:38:58 Test Item Value Reference Range Interpretation Comments POC-GLUCOSE METER 68 mg/dL 70-110 L : Notified RN/MD: TESTED (ASHLEY) (test code AT [facility] [address] = 1538) [facility], 770 30: 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/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 madeleine ID = [id number] for CONR OD DUPLECHIAN (V), SORAIDA Type and screen, [id number] 13:01:00 Test Item Value Reference Range Interpretation Comments ABO/RH AUTOMATED (ASHLEY) (test O POSITIVE code = 2260) Ab Scrn (test code = 890-4) [facility]GATIVE [facility]2021-01-30 06:34:53 Test Item Value Reference Range Interpretation Comments SARS-COV2/RT-PCR (test code = Negative Negative [id number]) Negative result for this test determines that SARS-CoV-2 RNA was not present in the specimen above the Limit of Detection (LOD). However, Negative results do not preclude SARS-CoV-2 infection and should not be used as the sole basis for treatment or patient management decisions. Negative results must be combined with clinical observations, patient history, and epidemiological information. A false negative result may occur if a specimen is improperly collected, transported, or handled. A false negative result should be considered if patient's recent exposures or clinical presentation indicate that COVID-19 (SARS-CoV-2) is likely and diagnostic tests for other causes of illness are negative. Re-testing should be considered in cases of suspected false negatives.The limit of detection for this assay is 100 copies/mL.This SARS-CoV-2 test is a real-time RT_PCR test intended for the qualitative detection of nucleic acid from SARS-CoV-2 in a nasopharyngeal swab specimen collected from individuals suspected of COVID-19 by their healthcare provider.This test has not been Food and Drug Administration (FDA) cleared or approved. This is a modified version of an approved Emergency Use Authorization (EUA) and is in the process of review by the FDA. Once authorized by the FDA, the issued EUA will be effective until the declaration that circumstances exist justifying the authorization of the emergency use of in vitro diagnostic tests for detection and/or diagnosis of COVID-19 is terminated under Section 564(b)(2) of the Act or the EUA is revoked under Section 564(g) of the Act.Testing was performed using lemon[employer] SARS-CoV-2 assay.Fact Sheet for Healthcare Providers:https://www.[employer]/tiffanie/RT SARS-CoV-2 HCP Fact Sheet 51- 978564.pdfFact Sheet for Healthcare Patients:https://www.[employer]/tiffanie/RT SARS-CoV-2 Patient Fact Sheet EN 51-354100E4.pdfBAUOFL [facility] METABOLIC [id number] 13:26:33 Test Item Value Reference Range Interpretation Comments SODIUM (BEAKER) 137 meq/L 136-145 (test code = 381) POTASSIUM (BEAKER) 4.4 meq/L 3.5-5.1 (test code = 379) CHLORIDE (BEAKER) 102 meq/L 98-107 (test code = 382) CO2 (BEAKER) (test 27 meq/L 22-29 code = 355) BLOOD UREA NITROGEN 11 mg/dL 7-21 (BEAKER) (test code = 354) CREATININE (BEAKER) 0.78 mg/dL 0.57-1.25 (test code = 358) GLUCOSE RANDOM 89 mg/dL 70-105 (BEAKER) (test code = 652) CALCIUM (BEAKER) 9.3 mg/dL 8.4-10.2 (test code = 697) EGFR (BEAKER) (test 98 mL/min/1.73 ESTIMA ALYSON GFR IS code = 1092) sq m NOT ACCURATE CREATININE CLEARANCE IN PREDICTING GLOMERULAR FILTRATION RATE . ESTIMATED GFR I S NOT APPLICABLE FOR DIALYSIS PATIEN TS. 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 ID - JARRETT MCBC W/PLT COUNT & AUTO [id number] 13:03:25 Test Item Value Reference Range Interpretation Comments WHITE BLOOD CELL COUNT (BEAKER) 12.0 K/ L 3.5-10.5 H (test code = 775) RED BLOOD CELL COUNT (BEAKER) 4.93 M/ L 4.63-6.08 (test code = 761) HEMOGLOBIN (BEAKER) (test code = 14.3 GM/DL 13.7-17.5 410) HEMATOCRIT (BEAKER) (test code = 43.7 % 40.1-51.0 411) MEAN CORPUSCULAR VOLUME (BEAKER) 88.6 fL 79.0-92.2 (test code = 753) MEAN CORPUSCULAR HEMOGLOBIN 29.0 pg 25.7-32.2 (BEAKER) (test code = 751) MEAN CORPUSCULAR HEMOGLOBIN CONC 32.7 GM/DL 32.3-36.5 (BEAKER) (test code = 752) RED CELL DISTRIBUTION WIDTH 14.0 % 11.6-14.4 (BEAKER) (test code = 412) PLATELET COUNT (BEAKER) (test 234 K/CU MM 150-450 code = 756) MEAN PLATELET VOLUME (BEAKER) 9.3 fL 9.4-12.4 L (test code = 754) NUCLEATED RED BLOOD CELLS 0 /100 WBC 0-0 (BEAKER) (test code = 413) NEUTROPHILS RELATIVE PERCENT 64 % (BEAKER) (test code = 429) LYMPHOCYTES RELATIVE PERCENT 26 % (BEAKER) (test code = 430) MONOCYTES RELATIVE PERCENT 7 % (BEAKER) (test code = 431) EOSINOPHILS RELATIVE PERCENT 2 % (BEAKER) (test code = 432) BASOPHILS RELATIVE PERCENT 1 % (BEAKER) (test code = 437) NEUTROPHILS ABSOLUTE COUNT 7.66 K/ L 1.78-5.38 H (BEAKER) (test code = 670) LYMPHOCYTES ABSOLUTE COUNT 3.17 K/ L 1.32-3.57 (BEAKER) (test code = 414) MONOCYTES ABSOLUTE COUNT (BEAKER) 0.86 K/ L 0.30-0.82 H (test code = 415) EOSINOPHILS ABSOLUTE COUNT 0.22 K/ L 0.04-0.54 (BEAKER) (test code = 416) BASOPHILS ABSOLUTE COUNT (BEAKER) 0.09 K/ L 0.01-0.08 H (test code = 417) IMMATURE GRANULOCYTES-RELATIVE 0 % 0-1 PERCENT (BEAKER) (test code = 2801) BASIC METABOLIC [id number] 06:27:00 Test Item Value Reference Range Interpretation Comments SODIUM (BEAKER) 138 meq/L 136-145 (test code = 381) POTASSIUM (BEAKER) 4.2 meq/L 3.5-5.1 (test code = 379) CHLORIDE (BEAKER) 106 meq/L 98-107 (test code = 382) CO2 (BEAKER) (test 24 meq/L 22-29 code = 355) BLOOD UREA NITROGEN 14 mg/dL 7-21 (BEAKER) (test code = 354) CREATININE (BEAKER) 0.85 mg/dL 0.57-1.25 (test code = 358) GLUCOSE RANDOM 261 mg/dL 70-105 H (BEAKER) (test code = 652) CALCIUM (BEAKER) 9.2 mg/dL 8.4-10.2 (test code = 697) EGFR (BEAKER) (test 89 mL/min/1.73 ESTIMA ALYSON GFR IS code = 1092) sq m NOT ACCURATE CREATININE CLEARANCE IN PREDICTING GLOMERULAR FILTRATION RATE . ESTIMATED GFR I S NOT APPLICABLE FOR DIALYSIS PATIEN TS. CBC W/PLT COUNT & AUTO [id number] 06:12:00 Test Item Value Reference Range Interpretation [...] % 0-1 PERCENT (BEAKER) (test code = 2801)
--- NOTE | 2021-12-22 12:43 | RAD REPORT ---
EXAM DESCRIPTION: CT - Head Brain Wo Cont - 12/22/2021 12:07 pm CLINICAL HISTORY: asdf COMPARISON: No comparisonsHead Brain Wo Cont dated 03/04/2020 TECHNIQUE: Axial 5 mm thick images of the head were obtained without IV contrast. All CT scans are performed using dose optimization technique as appropriate and may include automated exposure control or mA/KV adjustment according to patient size. FINDINGS: No intracranial hemorrhage, mass, edema or shift of mid-line structures. No acute cortical based infarction. No cortical edema or sulcal effacement. Atrophy changes are present. Ventricles ma y be slightly out of proportion to the amount of volume loss. Correlation can be made with any normal pressure hydrocephalus clinical findings. The intracranial findings are [facility]. No abnormal extra-axial fluid collections. Arterial tree calcifications are present. Mastoid air cells and visualized portions of the paranasal sinuses are clear. No acute bony findings. IMPRESSION: No acute intracranial finding identified. Patient has atrophy and chronic ischemic findings are not clearly different from [facility] imaging.
--- NOTE | 2021-12-22 12:53 | RAD REPORT ---
EXAM DESCRIPTION: RAD - Chest Single View - 12/22/2021 12:44 pm CLINICAL HISTORY: MALAISE COMPARISON: Portable 03/04/2020 TECHNIQUE: AP portable chest image was obtained 12/22/2021 12:44 pm . FINDINGS: No acute lung parenchymal process. Interstitial pattern matches comparison. Monitoring dev ice overlies the lower left chest. Sternotomy wires are in place. Heart and vasculature are normal. N o measurable pleural effusion and no pneumothorax. No acute bony abnormality seen. No acute aortic fi ndings suspected. IMPRESSION: No acute cardiopulmonary process. No significant change from comparison study.
--- NOTE | 2021-12-22 12:57 | RAD REPORT ---
EXAM DESCRIPTION: RAD - Pelvis - 12/22/2021 12:44 pm CLINICAL HISTORY: sdffall from bed, pelvic and hip pain COMPARISON: Pelvis W/Wo dated 05/22/2020; Head Brain Wo Cont dated 12/22/2021 TECHNIQUE: AP imaging of the pelvis was obtained. FINDINGS: Lower lumbar spine degenerative changes are present with possible loss in the L5 body. Lum bar spine cannot be adequately assessed on this study. No fracture of the bony pelvis. Bilateral hip joint degenerative changes are present worse on the right. No acute femoral head findin g. Femoral necks are intact. Intertrochanteric region is not fully assessed on this study. IMPRESSION: Bilateral hip joint degenerative change. No fracture of the bony pelvis. Lower lumbar degenerative change only partially imaged.
--- NOTE | 2021-12-22 12:58 | RAD REPORT ---
EXAM DESCRIPTION: RAD - Knee Right 2 View - 12/22/2021 12:44 pm CLINICAL HISTORY: PAIN, fall from bed COMPARISON: No comparisons FINDINGS: No fracture, dislocation or periosteal reaction.No joint effusion seen. Total knee prosthe sis in place. No implant abnormality seen. No radiographic evidence for loosening. No foreign body or soft tissue abnormality. IMPRESSION: No implant or [place] bone acute finding. No joint effusion identified.
--- NOTE | 2021-12-22 12:59 | RAD REPORT ---
EXAM DESCRIPTION: RAD - Knee Left 2 View - 12/22/2021 12:44 pm CLINICAL HISTORY: PAIN, fall from bed COMPARISON: No comparisons FINDINGS: No fracture, dislocation or periosteal reaction.No joint effusion seen. [place] bone is int act. Long-stem revision knee prosthesis in place. No evidence for loosening or other acute finding. N o soft tissue abnormality. IMPRESSION: No acute bone or implant finding. No abnormal joint effusion.
[2021-12-22 13:25] LABS: Absolute Lymphocytes (CBC) 0.7 K/uL (0.7-4.9); Hematocrit 45.6 % (39.6-49.0); Lymphocytes % 10.3 % (15.3-44.8); MCV 86.3 fL (80-100); MPV 7.7 fL (7.6-11.3); RBC Red Blood Cell Count 5.28 M/uL (4.33-5.43)
[2021-12-22 13:26] LABS: Troponin High Sensitivity 17.9 pg/mL (<58.9)
[2021-12-22 14:24] LABS: Urine Blood Trace-intact (Negative); Urine Glucose 1+ (Negative); Urine Protein Trace (Negative); Urine Specific Gravity >=1.030 (1.005-1.030); Urine pH 5.5 (5.0-7.0)
--- NOTE | 2021-12-22 18:10 | ER ---
Nurse's Notes [facility] Name: Dominic Jacobo Age: 71 yrs Sex: Male : 1950 Arrival Date: 12/22/2021 Time: 11:32 Bed 20 Private MD: Kevin Valenzuela B Diagnosis: Muscle weakness (generalized) Presentation: 12/22 11:46 Chief complaint: Patient states: night before 12/21/21 fell out of bed and now I have kr3 pain in both thighs and bilateral arm weakness. Coronavirus screen: Vaccine status: Patient reports receiving the 2nd dose of the covid vaccine. Client denies travel out of the [place] in the last 14 days. Ebola Screen: Patient denies travel to an Ebola-affected area in the 21 days before illness onset. Initial Sepsis Screen: Does the patient meet any 2 criteria? No. Patient's initial sepsis screen is negative. Does the patient have a suspected source of infection? No. Patient's initial sepsis screen is negative. Risk Assessment: Do you want to hurt yourself or someone else? Patient reports no desire to harm self or others. Onset of symptoms was December 21, 2021. 11:46 Method Of Arrival: Wheelchair kr3 11:46 Acuity: NICOL 3 kr3 Triage Assessment: 11:52 General: Appears in no apparent distress. comfortable. General: Behavior is calm, kr3 cooperative, appropriate for age. Pain: Complains of pain in right leg, lateral aspect of left thigh, left hamstring, medial aspect of left thigh and left quadriceps. Historical: - Allergies: 16:32 ambien; jl7 - PMHx: 11:49 CAD; kr3 16:32 Diabetes - NIDDM; High Cholesterol; Hypertension; jl7 - Immunization history:: Adult Immunizations up to date. - Social history:: Smoking status: Patient reports the use of cigarette tobacco products, pipe. Screenin:00 Abuse screen: Denies threats or abuse. Nutritional screening: No deficits noted. kr3 Tuberculosis screening: No symptoms or risk factors identified. Fall Risk Secondary diagnosis (15 points) Parkinson's . IV access (20 points). Gait- Weak (10 pts.). Mental Status- Overestimates/Forgets Limitations (15 pts.). Total Victoria Fall Scale indicates High Risk Score (45 or more points). Fall prevention measures have been instituted. Side Rails Up X 2 Placed Close to Nursing Station Frequent Obs/Assessments Occuring Family Present and informed to notify staff if the need to leave the bedside. Assessment: 12:58 Reassessment: No changes from previously documented assessment. Patient and/or family kr3 updated on plan of care and expected duration. Pain level reassessed. Patient is alert, oriented x 3, equal unlabored respirations, skin warm/dry/pink. 12:59 General:. Neuro: Level of Consciousness is awake, alert, obeys commands. kr3 Cardiovascular: Patient's skin is warm and dry. 13:00 Respiratory: Airway is patent Respiratory effort is even, unlabored, Respiratory kr3 pattern is symmetrical. GI: Abdomen is round non-distended. : Parent/caregiver report the patient having incontinence. Musculoskeletal: Reports weakness in right arm and left arm since 12/21/2021 am. 14:00 Reassessment: No changes from previously documented assessment. Patient and/or family kr3 updated on plan of care and expected duration. Pain level reassessed. Patient is alert, oriented x 3, equal unlabored respirations, skin warm/dry/pink. 15:11 Reassessment: No changes from previously documented assessment. Patient and/or family kr3 updated on plan of care and expected duration. Pain level reassessed. Patient is alert, oriented x 3, equal unlabored respirations, skin warm/dry/pink. 16:05 Reassessment: No changes from previously documented assessment. Patient and/or family kr3 updated on plan of care and expected duration. Pain level reassessed. Patient is alert, oriented x 3, equal unlabored respirations, skin warm/dry/pink. 17:00 Reassessment: No changes from previously documented assessment. Patient and/or family kr3 updated on plan of care and expected duration. Pain level reassessed. Patient is alert, oriented x 3, equal unlabored respirations, skin warm/dry/pink. 17:59 Reassessment: No changes from previously documented assessment. Patient and/or family kr3 updated on plan of care and expected duration. Pain level reassessed. Patient is alert, oriented x 3, equal unlabored respirations, skin warm/dry/pink. 19:00 Reassessment: No changes from previously documented assessment. Patient and/or family kr3 updated on plan of care and expected duration. Pain level reassessed. Patient is alert, oriented x 3, equal unlabored respirations, skin warm/dry/pink. Vital Signs: 11:46 BP 136 / 79; Pulse 89; Resp 16; Temp 96.9; Pulse Ox 97% ; Weight 113.4 kg; Height 6 ft. kr3 0 in. (182.88 cm); Pain 4/10; 12:59 BP 133 / 60; Pulse 88; Resp 16; Pulse Ox 97% on R/A; kr3 13:00 BP 123 / 88; Pulse 83; Resp 16; Pulse Ox 98% on R/A; kr3 14:00 BP 138 / 71; Pulse 75; Resp 16; Pulse Ox 96% on R/A; kr3 14:45 BP 138 / 71; Pulse 77; Resp 15; Pulse Ox 100% ; jl7 16:39 BP 145 / 81; Pulse 72; Resp 15; Pulse Ox 100% ; jl7 17:58 BP 130 / 66; Pulse 69; Resp 16; Pulse Ox 97% on R/A; kr3 19:00 BP 150 / 78; Pulse 83; Resp 16; Pulse Ox 97% on R/A; kr3 11:46 Body Mass Index 33.91 (113.40 kg, 182.88 cm) kr3 ED Course: 11:32 Patient arrived in ED. as 11:32 Kevin Valenzuela MD is Private Physician. as 11:33 [facility] jl9 11:33 Thuan Dickson MD is Attending Physician. jl9 11:46 Deedee Lubin, TYRA is Primary Nurse. kr3 11:49 Triage completed. kr3 11:53 Arm band placed on right wrist. Patient placed in an exam room, on a stretcher. kr3 12:08 Head Brain Wo Cont In Process Unspecified. EDMS 12:15 Bed in low position. Call light in reach. Side rails up X2. Adult w/ patient. kr3 12:46 XRAY Chest (1 view) In Process Unspecified. EDMS 12:46 XRAY Pelvis In Process Unspecified. EDMS 12:46 XRAY Knee LEFT 2 view In Process Unspecified. EDMS 12:46 XRAY Knee RIGHT 2 view In Process Unspecified. EDMS 14:48 faxed patient clinicals to Chris from [facility] for review/. eb 15:46 spoke with Asya from [facility] she is reviewing the patients record and will call us eb back. 18:07 patient has been accepted to [facility] in [place] / administrative approval given by Michael Peña / Dr. Sandra Quiros has accepted the patient in transfer/ report to be called to [phone]. 18:35 [facility] they will be here in one and a half hours/ eta 1999. eb Administered Medications: No medications were administered Outcome: 18:10 ER care complete, transfer ordered by MD. gan 20:56 Patient left the ED. mw2 Signatures: Dispatcher [employer] EDMS Edie Gore Jahala, RN RN jl7 Gabe Lackey mw2 Sherrell Kwon John jl9 Deedee Lubin, RN RN kr3 Corrections: (The following items were deleted from the chart) 15:15 14:00 BP 123 / 88; Pulse 83bpm; Resp 16bpm; Pulse Ox 98% RA; kr3 kr3
--- NOTE | 2021-12-22 18:11 | EDPHYS ---
Physician Documentation [facility] Name: Dominic Jacobo Age: 71 yrs Sex: Male : 1950 Arrival Date: 12/22/2021 Time: 11:32 Bed 20 Private MD: Kevin Valenzuela B ED Physician Thuan Dickson HPI: 12/22 12:08 This 71 yrs old Male presents to ER via Wheelchair with complaints of General jl9 Weakness. Patient states he thinks his Parkinsons is worsening. Patient slipped off of his bed onto his knees a few days ago and c/o soreness to legs bilaterally. . 12:08 Onset: The symptoms/episode began/occurred yesterday. Associated signs and symptoms: jl9 The patient has no apparent associated signs or symptoms. Historical: - Allergies: 16:32 ambien; jl7 - PMHx: 11:49 CAD; kr3 16:32 Diabetes - NIDDM; High Cholesterol; Hypertension; jl7 - Immunization history:: Adult Immunizations up to date. - Social history:: Smoking status: Patient reports the use of cigarette tobacco products, pipe. ROS: 12:09 Constitutional: Negative for fever, chills, and weight loss, Eyes: Negative for injury, jl9 pain, redness, and discharge, ENT: Negative for injury, pain, and discharge, Neck: Negative for injury, pain, and swelling, Cardiovascular: Negative for chest pain, palpitations, and edema, Respiratory: Negative for shortness of breath, cough, wheezing, and pleuritic chest pain, Abdomen/GI: Negative for abdominal pain, nausea, vomiting, diarrhea, and constipation, Back: Negative for injury and pain, : Negative for injury, bleeding, discharge, and swelling. 12:09 Skin: Negative for injury, rash, and discoloration, Neuro: Negative for headache, weakness, numbness, tingling, and seizure, Psych: Negative for depression, anxiety, suicide ideation, homicidal ideation, and hallucinations, Allergy/Immunology: Negative for hives, rash, and allergies, Endocrine: Negative for neck swelling, polydipsia, polyuria, polyphagia, and marked weight changes, Hematologic/Lymphatic: Negative for swollen nodes, abnormal bleeding, and unusual bruising. 12:09 MS/extremity: Positive for tenderness, Lower legs bilaterally. . Exam: 12:10 Constitutional: This is a well developed, well nourished patient who is awake, alert, jl9 and in no acute distress. Head/Face: Normocephalic, atraumatic. Eyes: Pupils equal round and reactive to light, extra-ocular motions intact. Lids and lashes normal. Conjunctiva and sclera are non-icteric and not injected. Cornea within normal limits. Periorbital areas with no swelling, redness, or edema. ENT: Mucous membranes moist. Neck: Trachea midline, no thyromegaly or masses palpated, and no cervical lymphadenopathy. Supple, full range of motion without nuchal rigidity, or vertebral point tenderness. No Meningismus. Chest/axilla: Normal chest wall appearance and motion. Nontender with no deformity. No lesions are appreciated. Cardiovascular: Regular rate and rhythm with a normal S1 and S2. No gallops, murmurs, or rubs. Normal PMI, no JVD. No pulse deficits. Respiratory: Lungs have equal breath sounds bilaterally, clear to auscultation and percussion. No rales, rhonchi or wheezes noted. No increased work of breathing, no retractions or nasal flaring. Abdomen/GI: Soft, non-tender, with normal bowel sounds. No distension or tympany. No guarding or rebound. No evidence of tenderness throughout. Back: No spinal tenderness. No costovertebral tenderness. Full range of motion. Skin: Warm, dry with normal turgor. Normal color with no rashes, no lesions, and no evidence of cellulitis. MS/ Extremity: Pulses equal, no cyanosis. Neurovascular intact. Full, normal range of motion. Neuro: Awake and alert, GCS 15, oriented to person, place, time, and situation. Cranial nerves II-XII grossly intact. Motor strength 5/5 in all extremities. Sensory grossly intact. Cerebellar exam normal. Normal gait. Psych: Awake, alert, with orientation to person, place and time. Behavior, mood, and affect are within normal limits. Vital Signs: 11:46 BP 136 / 79; Pulse 89; Resp 16; Temp 96.9; Pulse Ox 97% ; Weight 113.4 kg; Height 6 ft. kr3 0 in. (182.88 cm); Pain 4/10; 12:59 BP 133 / 60; Pulse 88; Resp 16; Pulse Ox 97% on R/A; kr3 13:00 BP 123 / 88; Pulse 83; Resp 16; Pulse Ox 98% on R/A; kr3 14:00 BP 138 / 71; Pulse 75; Resp 16; Pulse Ox 96% on R/A; kr3 14:45 BP 138 / 71; Pulse 77; Resp 15; Pulse Ox 100% ; jl7 16:39 BP 145 / 81; Pulse 72; Resp 15; Pulse Ox 100% ; jl7 17:58 BP 130 / 66; Pulse 69; Resp 16; Pulse Ox 97% on R/A; kr3 19:00 BP 150 / 78; Pulse 83; Resp 16; Pulse Ox 97% on R/A; kr3 11:46 Body Mass Index 33.91 (113.40 kg, 182.88 cm) kr3 MDM: 11:35 Patient medically screened. jl9 12:10 Data reviewed: vital signs, nurses notes. jl9 13:53 Differential diagnosis: viral Infection, bacterial infection, URI. Test interpretation: jl9 by ED physician or midlevel provider: ECG. 18:09 Counseling: I had a detailed discussion with the patient and/or guardian regarding: the jl9 historical points, exam findings, and any diagnostic results supporting the discharge/admit diagnosis, lab results, radiology results, the need to transfer to another facility, [facility]. Dr. Quiros accepted. . 12/22 11:53 Order name: Basic Metabolic Panel; Complete Time: 13:33 9 12/22 11:53 Order name: CBC with Diff; Complete Time: 13:33 12/22 11:53 Order name: Troponin HS; Complete Time: 13:33 12/22 11:53 Order name: XRAY Chest (1 view); Complete Time: 13:24 9 12/22 14:25 Order name: Urine Dipstick-Ancillary; Complete Time: 14:26 [facility] 12/22 17:31 Order name: SARS RAPID; Complete Time: 19:14 12/22 11:53 Order name: EKG; Complete Time: 11:54 9 12/22 11:53 Order name: IV Saline Lock; Complete Time: 12:58 9 12/22 11:53 Order name: Labs collected and sent; Complete Time: 12:58 12/22 11:53 Order name: CT Head Brain wo Cont jl9 12/22 11:58 Order name: Head Brain Wo Cont; Complete Time: 13:24 EDMS 12/22 12:00 Order name: XRAY Pelvis; Complete Time: 13:24 jl9 12/22 12:00 Order name: XRAY Knee LEFT 2 view; Complete Time: 13:24 jl9 12/22 12:00 Order name: XRAY Knee RIGHT 2 view; Complete Time: 13:24 jl9 12/22 11:53 Order name: Urine Dipstick-Ancillary (obtain specimen); Complete Time: 14:26 jl9 Administered Medications: No medications were administered Disposition: 12/23 10:16 Co-signature as Attending Physician, Thuan Dickson MD I agree with the assessment and kdr plan of care. Disposition Summary: 12/22/21 18:10 Transfer Ordered Transfer Location: Other Acute Care Facility jl9 Reason: Higher level of care jl9 Condition: Stable jl9 Problem: new jl9 Symptoms: are unchanged jl9 Accepting Physician: Dr. Quiros(12/22/21 20:56) mw2 Diagnosis - Muscle weakness (generalized) jl9 Forms: - Medication Reconciliation Form jl9 - SBAR form jl9 Signatures: Dispatcher [employer] EDMS Thuan Dickson MD MD kdr Dale Chow RN RN jl7 Gabe Lackey mw2 Misha Maddox jl9 Deedee Lubin, RN RN kr3 Corrections: (The following items were deleted from the chart) 12/22 20:56 18:10 Dr. Quiros jl9 mw2
[2021-12-22 19:08] LABS: SARS-CoV-2 Antigen Rapid Res Negative (Negative)
[2021-12-22 21:04] VITALS: TEMP 96.9
[2021-12-22 21:11] VITALS: O2SAT 97
[2021-12-22 21:12] VITALS: BP 150/78
== END 2021-12-22 20:56 ==
LOC: ER 11:30
DX: M62.81 Muscle weakness (generalized) (principal); G20 Parkinson's disease; I10 Essential (primary) hypertension; Z20.822 Contact with and (suspected) exposure to COVID-19; Z88.8 Allergy status to other drugs, medicaments and biological substances
CPT/HCPCS: 36415; 70450; 71045; 72170; 80048; 81003; 84484; 85025; 87811; 99283

== ENCOUNTER 2022-01-14 13:56 | Emergency (ER) | payer OTHER ==
--- OUTSIDE RECORDS SUMMARY | 2022-01-14 14:03 | XMS REPORT | Continuity of Care Document ---
:1950 Author Organization [facility] t Address [address] [place] [address] Care Team Providers Name Role Phone KARINA HASSAN Primary Care Physician Unavailable Kash Hassan Attending Clinician Unavailable Madison Solitario Anavella Attending Clinician Unava ilable HANNAH CAI Attending Clinician Unavailable Brandi Narayan Attending Clinician Unavailable Hannah Cai V Attending Clinician Unavailable Gutierrez Carrasquillo MD Attending Clinician GUTIERREZ CARRASQUILLO Attending Clinician Unavailable Katherine MARY, Doug Attending Clinician Unavailable NATHAN SALAZAR Attending Clinician Unavailable Margarita Hahn Attending Clinician Lilly Jennings MD Attending Clinician LILLY JENNINGS Attending Clinician Unavailable COLTON ELLINGTON Attending Clinician Unavailable Vanesa Solitario Anav Admitting Clinician Unavailable Brandi Narayan Admitting Clinician Unavailable GUTIERREZ CARRASQUILLO Admitting Clinician Unavailable COLTON ELLINGTON Admitting Clinician Unavailable Payers Payer Name Policy Type Policy Number Effective Date Expiration Date S jake [facility] [id number] AET AET [id number] AETNA 53 [id number] 2002 [facility] 00:[facility]:00 [facility] AETNA 53 [id number] [facility] MEDICARE MB [id number] [facility] NOVITAS [facility] MEDICARE [id number] [facility] MEDICARE PART A [id number] 2013 \T\ B 00:00:00 AETNA PRISCILA [id number] 2013 00:00:00 Problems Condition Condition Condition Status Onset Resolution Last Treating Co mments Source Name Details Category Date Date Treatment Clinician Date Angina Angina Disease Active 2020-[address] [facility] pectoris pectoris 04[facility]03 [facility] [place] Abnormal Abnormal Disease [facility] nuclear nuclear [facility]01 [facility] stress stress 00:00: Medical test test 00 [place] CAD CAD Disease Active [facility] (coronary (coronary 08-29 [facility] artery artery 00:00: Medical disease) disease) 00 [place] Diabetes Diabetes Disease Active [facility] 00 [place] Hypertensi Hypertensi Disease Active [facility] on on 08-29 [facility] 00 [place] Hyperlipid Hyperlipid Disease Active [facility] emia emia 08-29 [facility] 00 [place] [id number] OAB Problem Common (overactiv Spirit e bladder) [facility] [id number] Parkinsons Problem Com mon disease [facility] [id number] Nocturnal Problem Commo n enuresis [facility] Urge Urge Problem Common urinary urinary Spirit incontinen incontinen 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 Spirit y [facility] [id number] BPH loc w Problem Com mon urin Spirit obs/LUTS [facility] [id number] Functional Problem Co mmon urinary Spirit incontinen [facility] Neurogenic Urinary Problem Comm on dysfunctio bladder Spiri t n of the neurogenic - CH I urinary dysfunctio [facility] Allergies, Adverse Reactions, Alerts Allergy Allergy Status Severity Reaction(s) Onset Inactive Treating Comm ents Source Name Type Date Date Clinician NKA Allergy Active 2021-02 ENCCLR 1-15 13:32: 34 PROMETHA Allergy Active Other 2020-[address] [facility] ZINE 2 [facility] 00 [place] Prometha Drug Active Other (See 2020-[address] [facility] zine Allergy Comments) 04-01 [facility] 00 [place] ZOLPIDEM Allergy Active [facility] 4-03 [facility] 00 [place] Zolpidem Drug Active Other [facility] Allergy 4-03 reaction( [facility] 00:[facility]: s): Medical 00 hallucina [facility] NO KNOWN Allergy Active [facility] NO KNOWN Drug Active [facility] ALLERGIE [facility] ity of [facility] Family History Family Member Diagnosis Comments Start Date Stop Date Source Natural father Cancer [facility] Natural father Diabetes [facility] Natural father Heart disease [facility] Natural mother Coronary artery [facility] Natural mother Diabetes [facility] Social History Social Habit Start Date Stop Date Quantity Comments Source [facility] of [facility] - Tobacco Use [facility] Alcohol intake 2021-02-01 2021-02-01 Current [facility] 00:00:00 00:00:00 non-drinker of Medical Ce nter alcohol (finding) Tobacco use and 2018-08-10 2018-08-10 Former user [facility] Chuckie lazar exposure 00:00:00 00:00:00 [facility] Tobacco Comment 2018-08-10 2018-08-10 smokes a pipe [facility] 00:00:00 00:00:00 [facility] Sex Ass[birth year] [facility] 00:00:00 00:00:00 [facility] Smoking Status Start Date Stop Date Source Tobacco smoking consumption [facility] unknown Never Smoker [facility] nter Light tobacco smoker 2018-08-10 00:00:00 [facility] Medications Ordered Filled Start Stop Current Ordering Indication Dosage Frequency Signature Comments Components Source Medication Medication Date Date Medication? Clinician (SIG) Name Name Amoxicillin Amoxicillin 2021- No 1{table BID Amoxicilli -Pot -Pot 09-13- t} n-Pot Clavulanate Clavulanate 00:00: 00:00 Clavulanat 875-125 MG 875-125 MG 00 :00 e 875-125 MG Proscar 5 Proscar 5 2022-0 2023- No 1{table QD Proscar 5 MG MG 08-30 t} MG 00:00: 00:00 00 :00 Proscar 5 Proscar 5 2022-0 2023- No 1{table QD Proscar 5 MG MG 08-30 t} MG 00:00: 00:00 00 :00 Proscar 5 Proscar 5 2022-0 2023- No 1{table QD Proscar 5 MG MG 08-30 t} MG 00:00: 00:00 00 :00 Proscar 5 Proscar 5 2022-0 2023- No 1{table QD Proscar 5 MG MG 08-30 t} MG 00:00: 00:00 00 :00 Proscar 5 Proscar 5 2022-0 2023- No 1{table QD Proscar 5 MG MG 08-30 t} MG 00:00: 00:00 00 :00 Proscar 5 Proscar 5 2022-0 2023- No 1{table QD Proscar 5 MG MG 08-30 t} MG 00:00: 00:00 00 :00 Proscar 5 Proscar 5 2022-0 2023- No 1{table QD Proscar 5 MG MG 08-30 t} MG 00:00: 00:00 00 :00 Proscar 5 Proscar 5 2022-0 2023- No 1{table QD Proscar 5 MG MG 08-30 t} MG 00:00: 00:00 00 :00 Proscar 5 Proscar 5 2022-0 2023- No 1{table QD Proscar 5 MG MG 08-30 t} MG 00:00: 00:00 00 :00 solifenacin 2020-02 Yes 10mg QD Take [address] [facility] (VESIcare) 2-09 by mouth [facility] 10 MG 20:31: daily. Medical tablet [address] [place] [address] insulin 2020-02 Yes 50U QD Inject 50 [facility] degludec 2-09 Units [facility] (Tresiba 20:31: subcutaneo Med ical FlexTouch 02 [facility] U-100) 100 daily. unit/mL (3 mL) InPn tolterodine 2020-02 Yes 4mg QD Take [address] (DETROL LA) 2-09 by mouth [facility] s 4 MG 24 hr 20:31: daily. Medic al capsule 02 [place] ibuprofen 2020-02 Yes 200mg Take [address] [facility] (ADVIL,MOTR 2-09 mg by [facility] IN) 200 MG 20:31: mouth Medica l tablet 02 every 6 Center (six) hours as needed for Pain. metoprolol 2020-02 Yes 50mg QD Take [address] succinate 2-09 by mouth [facility] (TOPROL-XL) 20:31: daily. Medi juan m 50 MG 24 hr 02 Center tablet solifenacin 2020-02 Yes 10mg QD Take [address] (VESIcare) 2-09 by mouth [facility] 10 MG 20:31: daily. Medical tablet 02 [place] insulin 2020-02 Yes 50U QD Inject 50 [facility] degludec 2-09 [facility] (Tresiba 20:31: subcutaneo Med ical FlexTouch [address] [place] [address] U100) 100 daily. unit/mL (3 mL) In tolterodine 2020-02 Yes 4mg QD Take [address] (DETROL LA) 2-09 by mouth [facility] 4 MG 24 hr 20:31: daily. Medic al capsule 02 [place] ibuprofen 2020-02 Yes 200mg Take [address] (ADVIL,MOTR 2-09 mg by [facility] IN) 200 MG 20:31: mouth Medica l tablet 02 every 6 Center (six) hours as needed for Pain. metoprolol 2020-02 Yes 50mg QD Take [address] succinate 2-09 by mouth [facility] (TOPROL-XL) 20:31: daily. Medi juan m 50 MG 24 hr 02 Center tablet insulin 2020-02 Yes 50U QD Inject 50 [facility] degludec 2-09 [facility] (Tresiba 20:31: subcutaneo Med ical FlexTouch [address] [place] [address] U-100) 100 daily. unit/mL (3 mL) InPn tolterodine 2020-02 Yes 4mg QD Take [address] (DETROL LA) 2-09 by mouth [facility] 4 MG 24 hr 20:31: daily. Medic al capsule 02 [place] ibuprofen 2020-02 Yes 200mg Take [address] (ADVIL,MOTR 2-09 mg by [facility] IN) 200 MG 20:31: mouth Medica l tablet 02 every 6 Center (six) hours as needed for Pain. metoprolol 2020-02 Yes 50mg QD Take [address] succinate 2-09 by mouth [facility] (TOPROL-XL) 20:31: daily. Medi juan m 50 MG 24 hr 02 Center tablet solifenacin 2020-02 Yes 10mg QD Take [address] (VESIcare) 2-09 by mouth [facility] 10 MG 20:31: daily. Medical tablet 02 [place] irbesartan 2020-02 Yes 300mg QD Take [address] (AVAPRO) 2-08 mg by [facility] 300 MG 22:38: mouth Medical tablet 17 nightly. [place] rosuvastati 2020-02 Yes 20mg QD Take [address] n (CRESTOR) 2-08 by mouth [facility] 20 MG 22:38: daily. Medical tablet 17 [place] metFORMIN 2020-02 Yes 1000mg Take 1,[address] (GLUCOPHAGE 2-08 mg by [facility] ) 1000 MG 22:38: mouth 2 Medic al tablet 17 (two) Center times daily with breakfast and dinner. ezetimibe 2020-02 Yes 10mg QD Take [address] (ZETIA) 10 2-08 by mouth [facility] mg tablet 22:38: daily. Medica [address] clopidogrel 2020-02 Yes 75mg QD Take [address] (PLAVIX) 75 2-08 by mouth [facility] mg tablet 22:38: daily. Medica l [address] [place] [address] repaglinide 2020-02 Yes 1mg QD Take [address] (PRANDIN) 1 2-08 by mouth [facility] MG tablet 22:38: daily. Medica l [address] [place] [address] aspirin 81 2020-02 Yes 81mg QD Take [address] MG EC 2-08 by mouth [facility] tablet 22:38: daily. [address] irbesartan 2020-02 Yes 300mg QD Take [address] (AVAPRO) 2-08 mg by [facility] 300 MG 22:38: mouth Medical tablet 17 nightly. [place] rosuvastati 2020-02 Yes 20mg QD Take [address] n (CRESTOR) 2-08 by mouth [facility] s 20 MG 22:38: daily. Medical tablet [address] [place] [address] metFORMIN 2020-02 Yes 1000mg Take 1,[address] (GLUCOPHAGE 2-08 mg by [facility] ) 1000 MG 22:38: mouth 2 Medic al tablet 17 (two) Center times daily with breakfast and dinner. ezetimibe 2020-02 Yes 10mg QD Take [address] (ZETIA) 10 2-08 by mouth [facility] mg tablet 22:38: daily. [address] clopidogrel 2020-02 Yes 75mg QD Take [address] (PLAVIX) 75 2-08 by mouth Luke s mg tablet 22:38: daily. [address] repaglinide 2020-02 Yes 1mg QD Take [address] (PRANDIN) 1 2-08 by mouth [facility] MG tablet 22:38: daily. [address] aspirin 81 2020-02 Yes 81mg QD Take [address] MG EC 2-08 by mouth [facility] tablet 22:38: daily. [address] irbesartan 2020-02 Yes 300mg QD Take [address] (AVAPRO) 2-08 mg by [facility] 300 MG 22:38: mouth Medical tablet 17 nightly. [place] rosuvastati 2020-02 Yes 20mg QD Take [address] n (CRESTOR) 2-08 by mouth [facility] 20 MG 22:38: daily. [facility] tablet [address] [place] [address] metFORMIN 2020-02 Yes 1000mg Take 1,[address] (GLUCOPHAGE 2-08 mg by [facility] ) 1000 MG 22:38: mouth 2 Medic al tablet 17 (two) Center times daily with breakfast and dinner. ezetimibe 2020-02 Yes 10mg QD Take [address] (ZETIA) 10 2-08 by mouth [facility] mg tablet 22:38: daily. [address] clopidogrel 2020-02 Yes 75mg QD Take [address] (PLAVIX) 75 2-08 by mouth [facility] mg tablet 22:38: daily. [address] repaglinide 2020-02 Yes 1mg QD Take [address] (PRANDIN) 1 2-08 by mouth [facility] MG tablet 22:38: daily. [address] aspirin 81 2020-02 Yes 81mg QD Take [address] MG EC 08 by mouth [facility] tablet 22:38: daily. Medical 17 [place] VESIcare 10 VESIcare 10 2020-02- No 1{table QD VESIcare MG MG 03-28 t} 10 MG 00:00: 00:00 00 :00 VESIcare 10 VESIcare 10 2020-02- No 1{table QD VESIcare MG MG 03-28 t} 10 MG 00:00: 00:00 00 :00 solifenacin 2020-02- No 10mg QD Take [address] (Vesicare) 03-28 by mouth [facility] s 10 MG 00:00: 00:00 daily . Medical tablet 00 :00 [place] solifenacin 2020-02- No 10mg QD Take [address] (Vesicare) 03-28 by mouth [facility] 10 MG 00:00: 00:00 daily . Medical tablet 00 :00 [place] solifenacin 2020-02- No 10mg QD Take [address] (Vesicare) 03-28 by mouth [facility] 10 MG 00:00: 00:00 daily . Medical tablet 00 :00 [place] metoprolol 2020-02- No 50mg Q.5D Take [address] (LOPRESSOR) 1-24 -24 by mouth 2 L ukes 50 MG 09:57: 00:00 (two) Medical tablet 50 :00 times Center daily. Missing or 2020-02- No Pt on a [facility] Non-Formula -24 -24 medication L ukes ry 09:57: 00:00 for gout. Medical Medication 50 :00 Cannot Center recall name of it . metoprolol 2020-02 No 50mg Q.5D Take [address] (LOPRESSOR) 1-24 -24 by mouth 2 L ukes 50 MG 09:57: 00:00 (two) Medical tablet 50 :00 times Center daily. Missing or 2020-02- No Pt on a [facility] Non-Formula -24 -24 medication L ukes ry 09:57: 00:00 for gout. Medical Medication 50 :00 Cannot Center recall name of it . metoprolol 2020-02- No 50mg Q.5D Take [address] [facility] (LOPRESSOR) 03-19 by mouth 2 L ukes 50 MG 09:57: 00:00 (two) Medical tablet 50 :00 times Center daily. Missing or 2020-02 No Pt on a [facility] Non-Formula 03-19 medication L ukes ry 09:57: 00:00 for gout. Medical Medication 50 :00 Cannot Center recall name of it . glipiZIDE 2020-02 Yes 5mg Take [address] [facility] (GLUCOTROL) 1-23 by mouth 2 Linda kes 5 MG tablet 00:00: (two) Medic al 00 times Center daily before meals . glipiZIDE 2020-02 Yes 5mg Take [address] [facility] (GLUCOTROL) 1-23 by mouth 2 Linda kes 5 MG tablet 00:00: (two) Medic al 00 times Center daily before meals . glipiZIDE 2020-02 Yes 5mg Take [address] (GLUCOTROL) 1-23 by mouth 2 Linda kes 5 MG tablet 00:00: (two) Medic al 00 times Center daily before meals . trospium ER 2020-02 Yes 60mg QD Take [address] [facility] (SANCTURA) 1-20 by mouth [facility] 60 mg Cp24 00:00: daily . Medi juan m capsule [address] [place] [address] trospium ER 2020-02 Yes 60mg QD Take [address] (SANCTURA) 1-20 by mouth [facility] 60 mg Cp24 00:00: daily . Medi juan m capsule [address] [place] [address] trospium ER 2020-02 Yes 60mg QD Take [address] (SANCTURA) 1-20 by mouth [facility] 60 mg Cp24 00:00: daily . Medi juan m capsule [address] [place] [address] Vascepa 1 2020-02 Yes 1g QD Take [address] [facility] gram Cap 1-12 by mouth [facility] 00:00: daily . [address] Vascepa 1 2020-02 Yes 1g QD Take [address] gram Cap 1-12 by mouth [facility] 00:00: daily . [address] Vascepa 1 2020-02 Yes 1g QD Take [address] [facility] gram Cap 1-12 by mouth [facility] 00:00: daily . [address] Myrbetriq 2020-02 Yes 50mg QD Take [address] 50 mg Tb24 0-27 by mouth [facility] ER tablet 00:00: daily . Medic al 00 Center carbidopa-l 2020-02 Yes 1{tbl} Q.[id number] Take [address] evodopa 0-27 [id number] tablet by L ukes (SINEMET) 00:00: 3D mouth 3 Medic al 25-100 mg 00 (three) Center per tablet times daily . Myrbetriq 2020-02 Yes 50mg QD Take [address] 50 mg Tb24 0-27 by mouth [facility] ER tablet 00:00: daily . Medic al 00 Center carbidopa-l 2020-02 Yes 1{tbl} Q.[id number] Take [address] evodopa 0-27 [id number] tablet by L ukes (SINEMET) 00:00: 3D mouth 3 Medic al 25-100 mg 00 (three) Center per tablet times daily . carbidopa-l 2020-02 Yes 1{tbl} Q.[id number] Take [address] evodopa 0-27 [id number] tablet by L ukes (SINEMET) 00:00: 3D mouth 3 Medic al 25-100 mg 00 (three) Center per tablet times daily . Myrbetriq 2020-02 Yes 50mg QD Take [address] 50 mg Tb24 0-27 by mouth [facility] ER tablet 00:00: daily . Medic al 00 Center Myrbetriq Myrbetriq 2020-02- No 1{table QD Myrbetriq [...] MG 00:00: 00:00 00 :00 Myrbetriq Myrbetriq 2020-1 2022- No 1{table QD Myrbetriq 50 MG 50 MG 0-27 10-22 t} 50 MG 00:00: 00:00 00 :00 Myrbetriq Myrbetriq 2020- 2022- No 1{table QD Myrbetriq 50 MG 50 MG 0-27 10-22 t} 50 MG 00:00: 00:00 00 :00 Myrbetriq Myrbetriq 2020- 2022- No 1{table QD Myrbetriq 50 MG 50 MG 0-27 10-22 t} 50 MG 00:00: 00:00 00 :00 Myrbetriq Myrbetriq 2020-1 2022- No 1{table QD Myrbetriq 50 MG 50 MG 0-27 10-22 t} 50 MG 00:00: 00:00 00 :00 Myrbetriq Myrbetriq 2020-1 2022- No 1{table QD Myrbetriq 50 MG 50 MG 0-27 10-22 t} 50 MG 00:00: 00:00 00 :00 Myrbetriq Myrbetriq 1-1 2022- No 1{table QD Myrbetriq 50 MG 50 MG 0-27 10-22 t} 50 MG 00:00: 00:00 00 :00 Myrbetriq Myrbetriq 1-1 2022- No 1{table QD Myrbetriq 50 MG 50 MG 0-27 10-22 t} 50 MG 00:00: 00:00 00 :00 Myrbetriq Myrbetriq 1-1 2022- No 1{table QD Myrbetriq 50 MG [...] [address] (PROSCAR) 5 - by mouth Luke s mg tablet 00:00: daily . Medic al 00 [place] finasteride 2020-0 Yes 5mg QD Take [address] (PROSCAR) 5 9-03 by mouth [facility] mg tablet 00:00: daily . Medic al 00 [place] finasteride 2020-0 Yes 5mg QD Take [address] (PROSCAR) 5 - by mouth Luke s mg tablet 00:00: daily . Medic al 00 [place] Trospium Trospium 2- No QD Trospium Chloride ER Chloride ER 10-26 Chloride 60 MG 60 MG 00:00: 00:00 ER 60 MG 00 :00 Proscar 5 Proscar 5 2020-2021- No 1{table QD Proscar 5 MG MG 07-26 t} MG 00:00: 00:00 00 :00 Proscar 5 Proscar 5 2020-2021- No 1{table QD Proscar 5 MG MG 07-26 t} MG 00:00: 00:00 00 :00 Proscar 5 Proscar 5 2020-2021- No 1{table QD Proscar 5 MG MG 07-26 t} MG 00:00: 00:00 00 :00 Escitalopra [...] t} 10 MG Flomax 0.4 Flomax 0.4 No 1{capsu QD Flomax 0.4 MG MG 05-28 le} MG 00:00 :00 Flomax 0.4 Flomax 0.4 No 1{capsu QD Flomax 0.4 MG MG 05-28 le} MG 00:00 :00 Flomax 0.4 Flomax 0.4 No 1{capsu QD Flomax 0.4 MG MG 05-28 le} MG 00:00 :00 Vital Signs Vital Name Observation Time Observation Value Comments Source height 2021-08-30 15:45:00 69 [in_i] [facility] weight 2021-08-30 15:45:00 250 [lb_av] [facility] temperature 2021-08-30 15:45:00 97.4 [degF] [facility] bmi 2021-08-30 15:45:00 36.91 kg/m2 [facility] oximetry 2021-08-30 15:45:00 97 % [facility] respiratory rate 2021-08-30 15:45:00 16 /min Comm on [facility] blood pressure 2021-08-30 15:45:00 118 mm[Hg] [facility] - systolic [facility] blood pressure 2021-08-30 15:45:00 72 mm[Hg] [facility] - diastolic [facility] height 2021-02-21 13:00:00 69 [in_i] [facility] weight 2021-02-21 13:00:00 253 [lb_av] [facility] temperature 2021-02-21 13:00:00 98.1 [degF] [facility] bmi 2021-02-21 13:00:00 37.36 kg/m2 [facility] oximetry 2021-02-21 13:00:00 99 % [facility] respiratory rate 2021-02-21 13:00:00 18 /min Comm on [facility] blood pressure 2021-02-21 13:00:00 135 mm[Hg] [facility] - systolic [facility] blood pressure 2021-02-21 13:00:00 73 mm[Hg] Common [facility] - diastolic [facility] HEIGHT 2021-01-31 10:42:00 182.9 cm WEIGHT [...] 182.9 cm height 2021-01-25 13:00:00 69 [in_i] [facility] weight 2021-01-25 13:00:00 250 [lb_av] [facility] temperature 2021-01-25 13:00:00 97.5 [degF] [facility] bmi 2021-01-25 13:00:00 36.91 kg/m2 [facility] oximetry 2021-01-25 13:00:00 96 % [facility] respiratory rate 2021-01-25 13:00:00 20 /min Comm on [facility] height 2020-12-20 16:15:00 69 [in_i] [facility] weight 2020-12-20 16:15:00 253 [lb_av] [facility] temperature 2020-12-20 16:15:00 97.5 [degF] [facility] bmi 2020-12-20 16:15:00 37.36 kg/m2 [facility] oximetry 2020-12-20 16:15:00 98 % [facility] blood pressure 2020-12-20 16:15:00 141 mm[Hg] [facility] - systolic [facility] blood pressure 2020-12-20 16:15:00 63 mm[Hg] [facility] - diastolic [facility] Systolic blood 2021-01-31 19:58:00 130 mm[Hg] [facility] Diastolic blood 2021-01-31 19:58:00 59 mm[Hg] [facility] Heart rate 2021-01-31 19:58:00 65 /min [facility] Respiratory rate 2021-01-31 19:58:00 18 /min [facility] Oxygen saturation in 2021-01-31 18:30:00 96 /min [facility] Arterial blood by Medical Ce nter Pulse oximetry Body temperature 2021-01-31 10:42:00 35.56 Breanne [facility] Body height 2021-01-31 10:42:00 182.9 cm [facility] Body weight 2021-01-31 10:42:00 112.946 kg [facility] BMI 2021-01-31 10:42:00 33.77 kg/m2 [facility] Procedures Procedure Date / Time Performing Clinician Source Performed POCT-GLUCOSE METER 2021-01-31 18:12:00 Calin [facility] POCT-GLUCOSE METER 2021-01-31 17:27:00 Calin Gutierrez [facility] ANGIOGRAM, CORONARY, WITH 2021-01-31 16:06:00 Gutierrez Carrasquillo I [facility] LEFT HEART CATHETERIZATION [facility] ECG 12-LEAD 2021-01-31 12:24:58 Calin [facility] ECG 12-LEAD 2021-01-31 12:24:58 Unknown, Hl7 Doctor [facility] ECG 12-LEAD 2021-01-31 12:24:58 Unknown, Hl7 Doctor [facility] TYPE AND SCREEN, AUTOMATED 2021-01-31 11:53:00 Gutierrez Carrasquillo [facility] VASCULAR DIAGRAM -SCAN 2021-01-31 00:00:00 Provider [facility] CARDIAC CATH REPORT - SCAN 2021-01-31 00:00:00 Provider, [facility] CBC W/PLT COUNT & AUTO 2021-01-29 12:53:00 [facility] BASIC METABOLIC PANEL 2021-01-29 12:53:00 [facility] CBC W/PLT COUNT & AUTO 2021-01-29 12:53:00 [facility] SARS-COV2/RT-PCR ([facility] & 2021-01-29 12:41:00 [facility] REF LABS) [facility] Plan of Care Planned Activity Planned Date Details Comments Source Future Scheduled 2021-12-26 SHINGLES VACCINES (1 Met [facility] Test 03:16:57 of 2) [code = SHINGLES VACCINES (1 of 2)] Future Scheduled 2021-12-26 65+ [facility]OCOCCAL [facility] Test 03:16:57 VACCINE (1 - PCV) [code = 65+ PNEUMOCOCCAL VACCINE (1 - PCV)] Future Scheduled 2021-12-26 COVID-19 VACCINE (4 - Me [facility] Hospital Test 03:16:57 Booster for Pfizer series) [code = COVID-19 VACCINE (4 - Booster for Pfizer series)] Future Scheduled 2021-12-26 INFLUENZA VACCINE Method [facility] Hospital Test 03:16:57 [code = INFLUENZA VACCINE] Future Scheduled 2021-12-26 INFLUENZA VACCINE Method [facility] Hospital Test 03:16:57 [code = INFLUENZA VACCINE] Future Scheduled 2021-12-26 HEPATITIS B VACCINES Met [facility] Test 03:16:57 (1 of 3 - 3-dose series) [code = HEPATITIS B VACCINES (1 of 3 - 3-dose series)] Future Scheduled 2021-12-26 Hepatitis C screening [facility] Test 03:16:57 (procedure) [code = 847888349] Future Scheduled 2021-12-26 COLONOSCOPY SCREENING [facility] Test 03:16:57 [code = COLONOSCOPY SCREENING] Future Scheduled 2021-12-26 SHINGLES VACCINES (1 Met [facility] Test 03:16:57 of 2) [code = SHINGLES VACCINES (1 of 2)] Future Scheduled 2021-12-26 65+ [facility]OCOCCAL [facility] Test 03:16:57 VACCINE (1 - PCV) [code = 65+ PNEUMOCOCCAL VACCINE (1 - PCV)] Future Scheduled 2021-12-26 COVID-19 VACCINE (4 - Me [facility] Hospital Test 03:16:57 Booster for Pfizer series) [code = COVID-19 VACCINE (4 - Booster for Pfizer series)] Future Scheduled 2021-12-26 HEPATITIS B VACCINES Met [facility] Test 03:16:57 (1 of 3 - 3-dose series) [code = HEPATITIS B VACCINES (1 of 3 - 3-dose series)] Future Scheduled 2021-12-26 Hepatitis C screening [facility] Test 03:16:57 (procedure) [code = [id number]] Future Scheduled 2021-12-26 COLONOSCOPY SCREENING [facility] Test 03:16:57 [code = COLONOSCOPY SCREENING] Future Scheduled 2021-11-14 COLONOSCOPY SCREENING [facility] Test 03:16:58 [code = COLONOSCOPY SCREENING] Future Scheduled 2021-11-14 SHINGLES VACCINES (1 Met [facility] Test 03:16:58 of 2) [code = SHINGLES VACCINES (1 of 2)] Future Scheduled 2021-11-14 65+ [facility] 03:16:58 VACCINE (1 - PCV) [code = 65+ PNEUMOCOCCAL VACCINE (1 - PCV)] Future Scheduled 2021-11-14 COVID-19 VACCINE (4 - Me [facility] Test 03:16:58 Booster for Pfizer series) [code = COVID-19 VACCINE (4 - Booster for Pfizer series)] Future Scheduled 2021-11-14 INFLUENZA VACCINE Method [facility] Hospital Test 03:16:58 [code = INFLUENZA VACCINE] Future Scheduled 2021-11-14 HEPATITIS B VACCINES Met [facility] Test 03:16:58 (1 of 3 - 3-dose series) [code = HEPATITIS B VACCINES (1 of 3 - 3-dose series)] Future Scheduled 2021-11-14 Hepatitis C screening [facility] Test 03:16:58 (procedure) [code = 623635906] Future Scheduled 2021-10-25 INFLUENZA VACCINE (#1) [facility] 00:[facility]00 [code = INFLUENZA Medical Ce nter VACCINE (#1)] Future Scheduled 2021-10-25 INFLUENZA VACCINE (#1) [facility] 00:00:00 [code = INFLUENZA Medical Ce nter VACCINE (#1)] Future Scheduled 2021-10-25 INFLUENZA VACCINE (#1) [facility] 00:00:00 [code = INFLUENZA Medical Ce nter VACCINE (#1)] Future Scheduled 2021-02-[address] [facility] Test 00:00:00 (12+) [code = Medical Center DEPRESSION SCREENING (12+)] Future Scheduled 2021-02-24 FALLS RISK SCREENING [facility] Test 00:00:00 [code = FALLS RISK Medical C enter SCREENING] Future Scheduled 2021-02-[address] [facility] Test 00:00:00 (12+) [code = Medical Center DEPRESSION SCREENING (12+)] Future Scheduled 2021-02-24 F[address]S [address]ISK SCREENING [facility] Test 00:00:00 [code = FALLS RISK Medical C enter SCREENING] Future Scheduled 2021-02-[address] [facility] Test 00:00:00 (12+) [code = Medical Center DEPRESSION SCREENING (12+)] Future Scheduled 2021-02-24 F[address] SCREENING [facility] Test 00:00:00 [code = FALLS RISK Medical C enter SCREENING] Future Scheduled 2020-09-27 COVID-19 VACCINE (3 - [facility]:00 Booster for Pfizer Medical C enter series) [code = COVID-19 VACCINE (3 - Booster for Pfizer series)] Future Scheduled 2020-09-27 COVID-19 VACCINE (3 - [facility] 00:00:00 Booster for Pfizer Medical C enter series) [code = COVID-19 VACCINE (3 - Booster for Pfizer series)] Future Scheduled 2020-09-27 COVID-19 VACCINE (3 - [facility] 00:00:00 Booster for Pfizer Medical C enter series) [code = COVID-19 VACCINE (3 - Booster for Pfizer series)] Future Scheduled 2015-08-[address] [facility] Medical Center (procedure) [code = 74951372] Future Scheduled 2015-08-[address] [facility] 00[facility] measurement Medical Center (procedure) [code = 38196404] Future Scheduled 2015-08-[address] [facility] 00:[facility] measurement Medical Center (procedure) [code = 05759321] Future Scheduled 2014-12-[address] [facility] Test 00:00:00 WELLNESS (YEAR 2 or Medical Center FIRST YEAR if no IPPE) [code = MEDICARE ANNUAL WELLNESS (YEAR 2 or FIRST YEAR if no IPPE)] Future Scheduled 2014-12-[address] [facility] 00:00:00 WELLNESS (YEAR 2 or Medical Center FIRST YEAR if no IPPE) [code = MEDICARE ANNUAL WELLNESS (YEAR 2 or FIRST YEAR if no IPPE)] Future Scheduled 2014-12-[address] [facility] 00:00:00 WELLNESS (YEAR 2 or Medical Center FIRST YEAR if no IPPE) [code = MEDICARE ANNUAL WELLNESS (YEAR 2 or FIRST YEAR if no IPPE)] Future Scheduled [address] [facility] Test 00:00:00 aneurysm screening Medical C enter (procedure) [code = 986327758] Future Scheduled [address] [facility] Test 00:00:00 aneurysm screening Medical C enter (procedure) [code = 566448148] Future Scheduled [address] [facility] Test 00:00:00 aneurysm screening Medical C enter (procedure) [code = 131151643] Future Scheduled 1999 SHINGLES VACCINES ([address] [facility] Test 00:00:00 of 2) [code = SHINGLES Medic al Center VACCINES (1 of 2)] Future Scheduled 1999 SHINGLES VACCINES ([address] [facility] Test 00:00:00 of 2) [code = SHINGLES Medic al Center VACCINES (1 of 2)] Future Scheduled 1999 SHINGLES VACCINES ([address] [facility] Test 00:00:00 of 2) [code = SHINGLES Medic al Center VACCINES (1 of 2)] Future Scheduled 1968-01-17 DTAP/TDAP/TD [facility]ACCINES [facility] 00:00:00 (1 - Tdap) [code = Medical C enter DTAP/TDAP/TD VACCINES (1 - Tdap)] Future Scheduled 1968-01-17 DTAP/TDAP/TD [facility]ACCINES [facility] 00:00:00 (1 - Tdap) [code = Medical C enter DTAP/TDAP/TD VACCINES (1 - Tdap)] Future Scheduled 1968-01-17 DTAP/TDAP/TD [facility]ACCINES [facility] 00:00:00 (1 - Tdap) [code = Medical C enter DTAP/TDAP/TD VACCINES (1 - Tdap)] Future Scheduled 1967 HEPATITIS C [facility]CREENING [facility] 00:00:00 [code = HEPATITIS C Medical Center SCREENING] Future Scheduled 1967 HEPATITIS C [facility]CRE[facility]ING [facility] 00:00:00 [code = HEPATITIS C Medical Center SCREENING] Future Scheduled 1967 HEPATITIS C [facility]CRE[facility]ING [facility] 00:00:00 [code = HEPATITIS C Medical Center SCREENING] Future Scheduled [address] [facility] Test 00:00:00 Counseling and Medical Cente r Screening (12+) [code = Tobacco Cessation Counseling and Screening (12+)] Future Scheduled [address] EYE EXAM [facility] Test 00:00:00 [code = DIABETIC EYE Medical Center EXAM] Future Scheduled [address] [facility] 00:[facility]:00 examination Medical Center (regime/therapy) [code = 062197293] Future Scheduled 1959 Urine screening for [facility] Test 00:00:00 protein (procedure) Medical Center [code = 391825492] Future Scheduled [address] EYE EXAM [facility] Test 00:00:00 [code = DIABETIC EYE Medical Center EXAM] Future Scheduled [address] [facility] 00:00:00 examination Medical Center (regime/therapy) [code = 494612204] Future Scheduled 1959 Urine screening for [facility] Test 00:00:00 protein (procedure) Medical Center [code = 829422898] Future Scheduled [address]AB[address] EYE EXAM [facility] 00:00:00 [code = DIABETIC EYE Medical Center EXAM] Future Scheduled [address] [facility] Test 00:00:00 examination Medical Center (regime/therapy) [code = 784889164] Future Scheduled 1959 Urine screening for [facility] Test 00:00:00 protein (procedure) Medical Center [code = 839287587] Future Scheduled 1955 PNEUMOCOCCAL 65+ Y[address] [facility] Test 00:00:00 (1 - PCV) [code = Medical Ce nter PNEUMOCOCCAL 65+ YRS (1 - PCV)] Future Scheduled 1955 PNEUMOCOCCAL 65+ Y[facility] Test 00:00:00 (1 - PCV) [code = Medical Ce nter PNEUMOCOCCAL 65+ YRS (1 - PCV)] Future Scheduled 1955 PNEUMOCOCCAL 65+ YRS [facility] [...] Medica l Center colon (procedure) [code = 489608609] Future Scheduled [address] [facility] Test 00:00:00 malignant neoplasm of Medica l Center colon (procedure) [code = 335130216] Future Scheduled [address] [facility] Test 00:00:00 malignant neoplasm of Medica l Center colon (procedure) [code = 718751206] Future Scheduled [address] [facility] Test 00:00:00 malignant neoplasm of Medica l Center colon (procedure) [code = 925033990] Future Scheduled 1950 Sigmoidoscopy [code = [facility] [address] [facility] 00:00:00 (combo) [code = CT Medical C enter Colonography (combo)] Future Scheduled [address] [facility] Test 00:00:00 malignant neoplasm of Medica l Center colon (procedure) [code = 288823212] Future Scheduled [address] [facility] Test 00:00:00 malignant neoplasm of Medica l Center colon (procedure) [code = 112687596] Future Scheduled [address] [facility] Test 00:00:00 malignant neoplasm of Medica l Center colon (procedure) [code = 374423300] Future Scheduled [address] [facility] Test 00:00:00 malignant neoplasm of Medica l Center colon (procedure) [code = 906908720] Future Scheduled 1950 Sigmoidoscopy [facility]code [facility]oscopy] Medical Cente r Future Scheduled [address] [facility] 00:00:00 (combo) [code = CT Medical C enter Colonography (combo)] Future Scheduled [address] [facility] Test 00:00:00 malignant neoplasm of Medica l Center colon (procedure) [code = 818165181] Future Scheduled [address] [facility] Test 00:00:00 malignant neoplasm of Medica l Center colon (procedure) [code = 107981741] Future Scheduled [address] [facility] Test 00:00:00 malignant neoplasm of Medica l Center colon (procedure) [code = 227803445] Future Scheduled [address] [facility] Test 00:00:00 malignant neoplasm of Medica l Center colon (procedure) [code = 520013418] Future Scheduled 1950 Sigmoidoscopy [facility]oscopy] Medical Cente r Encounters Start End Encounter Admission Attending Care Care Encounter Source Date/Time Date/Time Type Type Clinicians Facility Department ID 2021-09-11 Outpatient BEA Hassan [facility] [id number] Common 14:35:01 Kash [id number] [facility] 2021-09-03 Outpatient Nicolas, STLMLC STLMLC [id number] Common 09:54:01 Kash [id number] [facility] 2021-03-21 Outpatient Nicolas, STLMLC STLMLC [id number] Common 14:02:16 Kash [id number] [facility] 2021-03-21 Outpatient Nicolas, STLMLC STLMLC [id number] Common 12:48:41 Kash [id number] [facility] 2021-03-21 Outpatient Nicolas, STLMLC STLMLC [id number] Common 12:41:21 Kash [id number] [facility] 2021-12-22 2022-01-08 Inpatient 3 [facility] ENCPL PAR [id number] [facility] 21:16:00 11:25:00 Beau contreras [facility] itation [facility] 2022-01-08 2022-01-08 Outpatient NEW KIRAN ENCCLR ENCCLR [id number] ENCCLR 00:00:00 00:00:00 ADMISSION HANNAH YEE 2022-01-03 2022-01-03 Outpatient Sylvain, HCAPM RADI [id number] [facility] 09:52:00 09:52:00 [place] [facility] 2021-12-03 2021-12-03 (TEL) STLMLC STLMLC [id number] Co mmon 00:00:00 00:00:00 [facility] 2021-11-29 2021-11-29 OFFICE STLMLC STLMLC [id number] Co mmon 00:00:00 00:00:00 VISIT [facility] LEVEL 4 [facility] 2021-11-20 2021-11-20 (TEL) STLMLC STLMLC [id number] Co mmon 00:00:00 00:00:00 [facility] 2021-09-13 2021-09-13 (TEL) STLMLC STLMLC [id number] Co mmon 00:00:00 00:00:00 [facility] 2021-09-10 2021-09-10 (TEL) STLMLC STLMLC [id number] Co mmon 00:00:00 00:00:00 [facility] 2021-09-03 2021-09-03 (NV) Nurse STLMLC STLMLC [id number] Common 00:00:00 00:00:00 Visit [facility] 2021-08-30 2021-08-30 OFFICE STLMLC STLMLC [id number] Co mmon 00:00:00 00:00:00 VISIT [facility] PT - [facility]I LEVEL 4 [facility] 2021-08-13 2021-08-13 (TEL) STLMLC STLMLC [id number] Co mmon 00:00:00 00:00:00 [facility] 2021-08-01 2021-08-01 ([place]) Nurse STLMLC STLMLC [id number] Common 00:00:00 00:00:00 Visit [facility] 2021-07-25 2021-07-25 (NV) Nurse STLMLC STLMLC [id number] Common 00:00:00 00:00:00 Visit [facility] 2021-07-17 2021-07-17 OFFICE STLMLC STLMLC [id number] Co mmon 00:00:00 00:00:00 VISIT [facility] PT [facility] LEVEL 1 [facility] 2021-07-09 2021-07-09 (NV) Nurse STLMLC STLMLC [id number] Common 00:00:00 00:00:00 Visit [facility] 2021-07-03 2021-07-03 (NV) Nurse STLMLC STLMLC [id number] Common 00:00:00 00:00:00 Visit [facility] 2021-06-26 2021-06-26 (NV) Nurse STLMLC STLMLC [id number] Common 00:00:00 00:00:00 Visit [facility] 2021-06-12 2021-06-12 (NV) Nurse STLMLC STLMLC [id number] Common 00:00:00 00:00:00 Visit [facility] 2021-06-05 2021-06-05 (NV) Nurse STLMLC STLMLC [id number] Common 00:00:00 00:00:00 [facility] 2021-02-21 2021-02-21 [facility] [id number] Co mmon 00:00:00 00:00:00 VISIT Wade NUÑEZ PT - CHI LEVEL 1 [facility] 2021-01-31 2021-01-31 Outpatient BC BC [id number] [facility] 00:00:00 23:59:00 Madelinein jose ramon 2021-01-31 2021-01-31 [facility] [id number] 10:34:00 20:31:00 Encounter [facility] 2021-01-31 2021-01-31 [facility] [id number] 10:34:00 20:31:00 Encounter [facility] 2021-01-31 2021-01-31 Outpatient [facility] Surgery [id number] SLE 10:34:00 20:31:00 [facility] 2021-01-31 2021-01-31 Surgery [facility], [facility] [id number] 16:12:00 18:47:00 [facility] 2021-01-31 2021-01-31 Surgery [facility], [facility] [id number] 16:12:00 18:47:00 [facility] 2021-01-31 2021-01-31 Orders [facility] [id number] 00:00:00 00:00:00 [facility] 2021-01-31 2021-01-31 Travel [facility] [id number] [facility] 00:[facility]00 00:[facility]:00 [facility] 2021-01-31 2021-01-31 Orders [facility] [id number] 00:00:00 00:00:00 [facility] 2021-01-31 2021-01-31 Travel [facility] [id number] [facility] 00[facility]00 00:00:00 [facility] 2021-01-29 2021-01-29 Outpatient EL SLE [facility] [id number] [facility] 11:52:04 11:52:04 2021-01-29 2021-01-29 Office Gutierrez Spear [facility] [id number] [facility] 11:30:00 11:45:00 Visit [facility] 2021-01-29 2021-01-29 Office Gutierrez Carrasquillo [facility] [id number] [facility] 11:30:00 11:45:00 Visit [facility] 2021-01-29 2021-01-29 Travel [facility] [id number] [facility] 00:00:00 00:00:00 [facility] 2021-01-29 2021-01-29 Travel [facility] [id number] [facility] 00:[facility]00 00:[facility]:00 [facility] 2021-01-25 2021-01-25 OFFICE STLMLC STLMLC [id number] Co mmon 00:00:00 00:00:00 VISIT [facility] PT - [facility] LEVEL 2 [facility] 2020-12-20 2020-12-20 OFFICE STLMLC STLMLC [id number] Co mmon 00:00:00 00:00:00 VISIT EST Spir it PT LEVEL 3 - [facility] 2020-12-06 2020-12-06 Outpatient [place] [id number] [place] 00:00:00 00:00:00 NATHAN [address] 2020-12-06 2020-12-06 Outpatient [place] [id number] [place] [address] 00:00:00 00:00:00 NATHAN [address] 2020-10-26 2020-10-26 Outpatient STLMLC STLMLC [id number] Common 00:00:00 00:00:00 [facility] 2020-07-26 2020-07-26 Outpatient STLMLC STLMLC [id number] Common 00:00:00 00:00:00 [facility] 2020-05-31 2020-05-31 Outpatient STLMLC STLMLC [id number] Common 00:00:00 00:00:00 [facility] 2020-01-01 2020-01-01 [facility] [id number] 00:00:00 00:00:00 Margarita Castellano [place] 350.1.13.10 [facility] 4.2.7.2.686 Professio [phone] [address] 2019-12-29 2019-12-29 [facility] [id number] 00:00:00 00:00:00 Lilly [place] 350.1.13.10 [facility] 4.2.7.2.686 Professio [phone] [address] 2019-12-22 2019-12-22 [facility] [id number] 00:00:00 00:00:00 Margarita Castellano [place] 350.1.13.10 [facility] 4.2.7.2.686 Professio [phone] [address] 2019-11-22 2019-11-22 Office [facility] [id number] 16:02:17 16:33:28 Visit Lilly [place] 350.1.13.10 [facility] 4.2.7.2.686 Professio [phone] [address] 2019-11-22 2019-11-22 [facility] [id number] [facility] 16:00:00 16:00:00 [facility] 2019-07-05 2019-07-05 [facility] [id number] Univers 10:00:00 10:00:00 [facility] 2019-03-08 2019-03-08 [facility] [id number] Univers 10:00:00 10:40:33 [facility] Results Test Description Test Time Test Comments Results Result Comments Source CBC W/AUTO DIFF 2022-01-03 16:16:00 Test Item Value Reference Range Interpretation Comme nts WHITE BLOOD CELL (test code = WBC) 13.3 K/mm3 3.5-11.0 H RED BLOOD CELL (test code = RBC) 4.38 M/mm3 4.70-6.10 L HEMOGLOBIN (test code = HGB) 12.6 G/DL 12.3-15.9 N HEMATOCRIT (test code = HCT) 39.1 % 35.8-46.7 N MEAN CELL VOLUME (test code = MCV) 89.3 Fl 86.3-98.9 N MEAN CELL HGB (test code = MCH) 28.8 pg 28.9-34.4 L MEAN CELL HGB CONCETRATION (test code = MCHC) 32.2 G/DL 32.1-34. 5 N RED CELL DISTRIBUTION WIDTH (test code = RDW) 13.3 SD 11.5-14. 5 N PLATELET COUNT (test code = PLT) 297 K/mm3 150-450 N MEAN PLATELET VOLUME (test code = MPV) 9.70 fL 7.0-9.6 H NEUTROPHIL % (test code = NT%) 67.1 % 40-76 N IMMATURE GRANULOCYTE % (test code = IG%) 0.4 % 0.0-5.0 N LYMPHOCYTE % (test code = LY%) 20.8 % 20.5-51.1 N MONOCYTE % (test code = MO%) 9.5 % 1.7-9.3 H EOSINOPHIL % (test code = EO%) 1.7 % 0.0-6.0 N BASOPHIL % (test code = BA%) 0.5 % 0.0-2.0 N MANUAL DIFF REQUIRED (test code = MDIFF) NO DIFF/SCN CRITERIA CBC W/AUTO [id number] 16:16:00 Test Item Value Reference Range Interpretation Comments WHITE BLOOD CELL (test code = 15.0 K/mm3 3.5-11.0 H WBC) RED BLOOD CELL (test code = RBC) 4.88 M/mm3 4.70-6.10 N HEMOGLOBIN (test code = HGB) 14.2 G/DL 12.3-15.9 N HEMATOCRIT (test code = HCT) 47.3 % 35.8-46.7 H MEAN CELL VOLUME (test code = 96.9 Fl 86.3-98.9 N MCV) MEAN CELL HGB (test code = MCH) 29.1 pg 28.9-34.4 N MEAN CELL HGB CONCETRATION (test 30.0 G/DL 32.1-34.5 L code = MCHC) RED CELL DISTRIBUTION WIDTH (test 13.5 SD 11.5-14.5 N code = RDW) PLATELET COUNT (test code = PLT) 307 K/mm3 150-450 N MEAN PLATELET VOLUME (test code = 9.90 fL 7.0-9.6 H MPV) NEUTROPHIL % (test code = NT%) 71.8 % 40-76 N IMMATURE GRANULOCYTE % (test code 0.6 % 0.0-5.0 N = IG%) LYMPHOCYTE % (test code = LY%) 14.8 % 20.5-51.1 L MONOCYTE % (test code = MO%) 11.0 % 1.7-9.3 H EOSINOPHIL % (test code = EO%) 1.1 % 0.0-6.0 N BASOPHIL % (test code = BA%) 0.7 % 0.0-2.0 N MANUAL DIFF REQUIRED (test code = NO DIFF/SCN CRITERIA MDIFF) COMPREHENSIVE METABOLIC [id number] 16:12:00 Test Item Value Reference Range Interpretation Comments SODIUM (test code 134 mmol/L 134-147 N = NA) POTASSIUM (test 4.1 mmol/L 3.4-5.0 N code = K) CHLORIDE (test 100 mmol/L 100-108 N code = CL) CARBON DIOXIDE 25 mmol/L 21-32 N (test code = CO2) ANION GAP (test 9.0 GAP calc 4.0-15.0 N code = GAP) GLUCOSE (test code 116 MG/DL 70-110 H = GLU) BLOOD UREA 24 MG/DL 7-18 H NITROGEN (test code = BUN) GLOMERULAR >=60 max >60 The Glomerular FILTRATION RATE estimate estGFR Filtratio n Rate is a (test code = GFR) calculated parameterbased on serum Creatinin e, patient age and sex. GFR valuesless than 60 mL/min/1.73 square meters are meme cative ofChronic Kidne y Disease. Values less than 15 mL/min/1.73squa re meters indicate Kidney failure. The calculation for GFR is based on the CK D-EPI (2020) calculat ion. This formulais race indifferent and is the recommended formula for GFR by the National Kidney Foundation for Adults.The GFR will not calculate i f the sex is unknown or if thepatient's ag e is <18 years. CREATININE (test 0.8 MG/DL 0.8-1.3 N code = CREAT) TOTAL PROTEIN 6.2 G/DL 6.4-8.2 L (test code = PROT) ALBUMIN (test code 3.1 G/DL 3.4-5.0 L = ALB) GLOBULIN (test 3.1 GM/dL code = GLOB) ALBUMIN/GLOBULIN 1.0 RATIO 1.2-2.2 L RATIO (test code = A/G) CALCIUM (test code 8.7 MG/DL 8.5-10.1 N = CA) BILIRUBIN TOTAL 1.00 MG/DL 0.2-1.2 N (test code = BILT) SGOT/AST (test 32 Unit/L 15-37 N code = AST) SGPT/ALT (test 19 Unit/L 12-78 N code = ALT) ALKALINE 101 Unit/L 50-136 N PHOSPHATASE TOTAL (test code = ALKP) - MRI L-SPINE W/O [id number] 13:45:00 [facility] 1950 Sex: M FAX: Brandi Narayan MD [phone] Camps: SEDRICK St: REG Name: YANICK COOPER [facility] : 1950 Age/S: 71/M [address] Unit #: [id number] Loc: [place] [address] Phys: Brandi Narayan MD Acct: [id number] Dis Date: Status: REG REF PHONE #: [phone] Exam Date: 01/03/2022 1200 FAX #: Reason: BACK PAIN, WEAKNESS EXAMS: CPT: [id number] MRI L-SPINE W/O CONT 14350 LOCATION: B2 MRI LUMBAR SPINE WITHOUT CONTRAST HISTORY: BACK PAIN, WEAKNESS TECHNIQUE: Multiplanar multisequence MR images of the lumbar spine were obtained without intravenous contrast. Unless otherwise specified, incidental findings do not require ded icated imaging follow-up. COMPARISON: None FINDINGS: For purposes of this dictation, it is assumed that there are 5 nonrib-bearing lumbar type vertebrae, and the most caudal fully segmented lumbar vertebra is labeled L5. The lumbar spine demonstrates normal alignment. Vertebral bodies are normal in height. There is a normal marrow signal pattern. The conus medullaris terminates at a normal level. The nerve roots of the cauda equina appear normal. Fatty atrophy in the paraspinal muscles. The included retroperitoneal structures are grossly normal. Evaluation of the individual levels: L1-2: Moderate loss of disc height. Circumferential disc bulge without significant spinal canal or neural foraminal stenosis. L2-3: Mild loss of disc height. Circumferential disc bulge and facet hypertrophy result in mild spinal canal and mild left neural foraminal stenosis. No significant right neural foraminal stenosis. L3-4: Moderate loss of disc height with edematous endplate changes and a Schmorl's node in L3. C ircumferential disc bulge and facet hypertrophy result in moderate spinal canal, moderate right and mild left neural foraminal stenosis. L4-5: Severe loss of disc height. Circumferential disc bulge and facet hypertrophy result in mild spinal canal and moderate bilateral PAGE 1 Signed Report (CONTINUED) FAX: Brandi Narayan MD [phone] Camps: PM St: REG Name: YANICK COOPER [facility] : 1950 Age/S: 71/M [address] [place] [address] Unit #: [id number] Loc: [place] [address] Phys: Brandi Narayan MD Acct: [id number] Dis Date: Status: REG REF PHONE #: [phone] Exam Date: 01/03/2022 1200 FAX #: Reason: BACK PAIN, WEAKNESS EXAMS: CPT: [id number] MRI L-SPINE W/O CONT 71274 (Continued) neural foraminal stenosis.L5-S1: Moderate loss of disc height. Circumferential disc bulge and facet hypertrophy result in severe bilateral neural foraminal stenosis. No significant spinal canal stenosis. IMPRESSION: Degenerative changes result in multilevel moderate to severe neural foraminal stenosis in the mid to lower lumbar spine as described above. There is also moderate spinal canal stenosis at L3-L4. ElectronicallySigned by Ricky Quinones on 01/03/2022 at 9265 Reported and signed by: Andrez Quinones M.D. CC: Brandi Narayan MD Technologist: Rojas Dalal, RT(R)(CT)(MR) Transcribed Date/Time/By: 01/03/2022 (6118) :[email or web address] Orig Print D/T: S: 01/03/2022 (9743) PAGE 2 Signed Report- CT HEAD/BRAIN W/O [id number] 10:58:00 [facility] 1950 Sex: M Name: YANICK COOPER [facility] : 1950 Age/S: 71 / M [address] Unit #: [id number] [place] [address] Phys: Brandi Narayan MD Acct: [id number] Dis Date: Status: REG REF PHONE #: [phone] Exam Date: 01/03/2022 1030 FAX #: Reason: R/O STROKE EXAMS: CPT: [id number] CT HEAD/BRAIN W/O CONT [id number] Location Code: S17 EXAMINATION: - CT HEAD/BRAIN W/O CONT CLINICAL INDICATION: Male, 71 ye ars old with Parkinson's and hypertension. TECHNIQUE: Axial CT images from the skull base to the vertex without intravenous contrast. Coronal and sagittal reformatted images were created from the data set. One or more of the following dose reduction techniques were used: Automated exposure control, adjustment of the mA and/or kV according to patient size, and/or iterative reconstruction. COMPARISON: None FINDINGS: Intracranial: Mild patchy lucencies in the periventricular and subcortical white matter likely represent chronic ischemic changes. No evidence of acute intracranial hemorrhage, mass effect, or abnormal extra-axial fluid collection. No midline shift. Prominence of the lateral ventricles with respect to the prominent cerebral sulci likely represent moderate cerebral volume loss. Small foci of gas within the sagittal sinus is nonspecific. Intracranial vascular calcifications. Sinuses: The visualized paranasal sinuses and mastoid air cells are predominantly clear. Bones: The osseous structures are intact. The orbits appear symmetric. IMPRESSION: No CT evidence of acute intracranial process. Chronic white matter microvascular ischemic changes. Moderate cerebral volume loss. PAGE 1 Signed Report (CONTINUED) Name: YANICK COOPER [facility] : 1950 Age/S: 71 / M [id number] Unit #: [id number] Loc: [place] [address] Phys: Brandi Narayan MD Acct: [id number] Dis Date: Status: REG REF PHONE #: [phone] Exam Date: 01/03/2022 1030 FAX #: Reason: R/O STROKE EXAMS: CPT: [id number] CT HEAD/BRAIN W/O CONT 19126 (Continued) at 1058 Reported and signed by: Dante Duron M.D. CC: Brandi Narayan MD Technologist:Sher Tracy, RT(R)(CT) CTDI: DLP: Trnscb Date/Time: 01/03/2022 (105) [email or web address] Orig Print D/T: S: 01/03/2022 (1101) PAGE 2 Signed ReportUA RFLX MICR CULT IF [id number] 16:28:00 Test Item Value Reference Range Interpretation Comments UA COLOR (test code = COLU) YELLOW discript YEL/STRAW UA APPEARANCE (test code = CLEAR discript CLEAR APPU) UA GLUCOSE DIPSTICK (test NEGATIVE mg/dL NEG code = DGLUU) UA BILIRUBIN DIPSTICK (test NEGATIVE mg/dL NEG code = BILU) UA KETONE DIPSTICK (test NEGATIVE mg/dL NEG code = KETU) UA SPECIFIC GRAVITY (test 1.025 SG 1.005-1.030 code = SGU) UA BLOOD DIPSTICK (test NEGATIVE mg/DL NEG code = ANA) UA PH DIPSTICK (test code = 5.5 pH UNITS 5.0-7.0 GARY) UA PROTEIN DIPSTICK (test NEGATIVE mg/dL NEG code = PROU) UA UROBILINIOGEN DIPSTICK 0.2 mg/dL <2.0 (test code = URO) UA NITRITE DIPSTICK (test NEGATIVE SCREEN NEG code = ODELL) UA LEUKOCYTE ESTERASE NEGATIVE Leuk/mcL NEGATIVE DIPSTICK (test code = LEUU) UA CULTURE NEEDED? (test Criteria Culture CHK code = UACULT) POC-Glucose [id number] 18:23:43 Test Item Value Reference Range Interpretation Comments POC-Glucose Meter (test 88 mg/dL 70-110 : TE STED AT [facility] code = 1538) [address] [place] [address], 770 30: Assistant Property Manager/Techni madeleine ID = [id number] for Terrie Hassan Lab Interpretation (test Normal code = 03030-0) [facility]-Glucose [id number] 18:23:43 Test Item Value Reference Range Interpretation Comments POC-Glucose Meter (test 88 mg/dL 70-110 : TE STED AT [facility] code = 1538) [address] [place] [address], 770 30: Assistant Property Manager/Techni madeleine ID = [id number] for Terrie Hassan Lab Interpretation (test Normal code = 83786-1) [facility] [id number] 18:23:43 Test Item Value Reference Range Interpretation Comments POC-Glucose Meter (test 88 mg/dL 70-110 : TE STED AT [facility] code = 1538) [address] [facility], 770 30: Assistant Property Manager/Techni madeleine ID = [id number] for Terrie Hassan Lab Interpretation (test Normal code = 85994-8) [facility] [id number] 18:23:43 Test Item Value Reference Range Interpretation Comments POC-GLUCOSE METER 88 mg/dL 70-110 : TESTED A T [facility] 6720 (BEAKER) (test code = BERTNE R [facility], 1538) [address]: Assistant Property Manager/Techni madeleine ID = [id number] for Terrie Cleaning POCT-GLUCOSE [id number] 17:38:58 Test Item Value Reference Range Interpretation Comments POC-GLUCOSE METER 68 mg/dL 70-110 L : Notified RN/MD: TESTED (BEAKER) (test code AT [facility] [address] = 1538) [facility], 770 30: Assistant Property Manager/Techni madeleine ID = [id number] for CONR OD DUPLECHIAN (V), SORAIDA Type and screen, [id number] 13:01:00 Test Item Value Reference Range Interpretation Comments ABO/RH AUTOMATED (BEAKER) (test O POSITIVE code = 2260) Ab Scrn (test code = 890-4) NEGATIVE [facility], [id number] 13:01:00 Test Item Value Reference Range Interpretation Comments ABO/RH AUTOMATED (BEAKER) (test O POSITIVE code = 2260) Ab Scrn (test code = 890-4) NEGATIVE [facility], [id number] 13:01:00 Test Item Value Reference Range Interpretation Comments ABO/RH AUTOMATED (BEAKER) (test O POSITIVE code = 2260) Ab Scrn (test code = 890-4) NEGATIVE [facility]2021-01-30 06:34:53 Test Item Value Reference Range Interpretation Comments SARS-COV2/RT-PCR (test code = Negative Negative [id number]) Negative result for this test determines that [...] 564(g) of the Act.Testing was performed using [employer] SARS-CoV-2 assay.Fact Sheet for Healthcare Providers:https://www.[employer].tan/tiffanie/RT SARS-CoV-2 HCP Fact Sheet 51- 880140.pdfFact Sheet for Healthcare Patients:https://www.[employer].tan/tiffanie/RT SARS-CoV-2 Patient Fact Sheet EN 51-353099E2.pdfBASIC METABOLIC [id number] 13:26:33 Test Item Value Reference Range Interpretation [...] S NOT APPLICABLE FOR DIALYSIS PATIEN TS. Assistant Property Manager ID - JARRETT [facility] W/PLT COUNT & AUTO [id number] 13:03:25 Test Item Value Reference Range Interpretation [...] (BEAKER) (test code = 2801) BASIC METABOLIC [id number] 06:27:00 Test Item Value Reference Range Interpretation [...] PATIEN TS. CBC W/PLT COUNT & AUTO [id number] 06:12:00 Test Item Value Reference Range Interpretation [...]
[2022-01-14 14:54] LABS: Absolute Lymphocytes (CBC) 1.6 K/uL (0.7-4.9); Hematocrit 38.7 % (39.6-49.0); Lymphocytes % 14.4 % (15.3-44.8); MCV 85.7 fL (80-100); MPV 7.9 fL (7.6-11.3); RBC Red Blood Cell Count 4.52 M/uL (4.33-5.43)
--- NOTE | 2022-01-14 15:03 | RAD REPORT ---
EXAM DESCRIPTION: RAD - Chest Single View - 01/14/2022 2:48 pm CLINICAL HISTORY: weakness Chest pain. COMPARISON: Chest Single View dated 12/22/2021; Chest Single View dated 03/04/2020; Chest Single View dated 06/01/2018; Chest Single View dated 05/27/2018 FINDINGS: Portable technique limits examination quality. The lungs are grossly clear. The heart is normal in size. No displaced fractures.Sternotomy wires. IMPRESSION: No acute intrathoracic process suspected.
[2022-01-14 15:14] LABS: Bilirubin Total 0.5 mg/dL (0.2-1.0); Protein, Total 6.7 g/dL (6.4-8.2); Thyroid Stimulating Hormone 1.06 uIU/mL (0.360-3.740); Troponin High Sensitivity 7.8 pg/mL (<58.9)
[2022-01-14 15:20] LABS: Magnesium 1.9 mg/dL (1.8-2.4); Potassium 3.6 mmol/L (3.5-5.1)
[2022-01-14] MEDS ORDERED: NA CHLORIDE 0.9% 1,000 ML ONE (20:02)
[2022-01-14] MEDS ORDERED: Meropenem 1000 MG/VIAL IV ONE (20:02)
[2022-01-14] MEDS ORDERED: NA CHLORIDE 0.9% 100 ML IV ONE (20:02)
[2022-01-14 21:26] LABS: Protime INR 1.11
[2022-01-14 21:37] LABS: Bilirubin Direct 0.2 mg/dL (0-0.2); Bilirubin Total 0.5 mg/dL (0.2-1.0); Potassium 3.5 mmol/L (3.5-5.1); Protein, Total 6.7 g/dL (6.4-8.2)
[2022-01-14] MEDS ORDERED: NA CHLORIDE 0.9% 500 ML ONE (21:39)
[2022-01-14 21:46] LABS: SARS-COV-2 RT PCR NEGATIVE (NEGATIVE)
[2022-01-15] MEDS ORDERED: LIDOCAINE HCL JELLY 2% 6 ML SYRINGE TOP ONE (00:06)
[2022-01-15 00:16] LABS: Urine Blood 3+ (Negative); Urine Glucose Trace (Negative); Urine Protein 1+ (Negative); Urine Specific Gravity >=1.030 (1.005-1.030); Urine pH 5.5 (5.0-7.0)
[2022-01-15 00:56] LABS: Urine Mucus 3+ /HPF (None Seen); Urine RBC >50 /HPF (None Seen)
--- NOTE | 2022-01-15 01:53 | P.CNS ---
Date of Consult: 01/15/22 Primary Care Provider: Dr. Valenzuela Chief Complaint: Weakness, deconditioning History of Present Illness: 71-year-old male with history of Parkinson's, insulin-dependent diabetes, hypertension, hyperlipidemia, CAD status post CABG presents to the emergency department for generalized weakness. His is at bedside who reports that he had a fall about 3 weeks ago which resulted in steady decline of his ability to care for himself, he was previously admitted to [facility] for approximately 2 weeks and was discharged about 1 week ago. Family reports that at discharge from rehab facility he was able to assist in his care significantly, able to ambulate, stand etc. but over the course of the last few days he has had significant decline and is now unable to get out of bed even with assistance. Patient was evaluated in the emergency department his labs were significant for an elevated glucose 174 hemoglobin 13.2 hematocrit 38.7 urine with greater than 50 red cells, 10-20 white blood cells nitrite negative leuk esterase negative. His vital signs remained stable during his stay in the emergency department he denies any specific complaint other than generalized weakness family reports they are unable to care for him at home in his current condition and were requesting assistance with rehab. ED reached out to [facility] who plans on coming to assess patient in the morning for possible placement, if they are unable to place him family would like to proceed with admission for weakness, deconditioning. - Past Medical/Surgical History Diabetic: Yes -: Diabetes mellitus type 2insulin-dependent -: Hypertension -: Coronary artery disease -: Hyperlipidemia -: Parkinson's -: CABG -: bilateral knee sx -: cholecystectomy Psychosocial/ Personal History: Patient lives at home with family. - Social History Smoking Status: Current every day smoker Counseled patient to stop smoking for: less than 10 minutes Alcohol use: No CD- Drugs: No Caffeine use: Yes Place of Residence: Home <David Sanchez - Last Filed: 01/15/22 01:48> <Shane Blair - Last Filed: 01/15/22 09:50> Allergies zolpidem [From Ambien] Adverse Reaction (Verified 05/27/18 21:13) hallucinates Home Medications: Aspirin Chewable [Aspirin Chewable*] 81 mg PO DAILY tab.chew 06/11/18 Clopidogrel Bisulfate [Plavix*] 75 mg PO DAILY tablet 06/11/18 Ezetimibe [Zetia*] 10 mg PO DAILY tab 06/11/18 Irbesartan [Avapro*] 150 mg PO DAILY tab 06/11/18 Metoprolol Succinate [Toprol Xl*] 25 mg PO BID 6AM 6PM tab 06/11/18 Rosuvastatin [Crestor*] 20 mg PO BEDTIME tab 06/11/18 Tolterodine Tartrate [Detrol LA*] 4 mg PO DAILY cap 06/11/18 Tresiba 50 Units 50 units SQ BEDTIME 06/11/18 Metformin ER [Glucophage ER] 1,000 mg PO DAILY 03/06/20 Repaglinide [Prandin] 1 tab PO Q6H 03/06/20 Carbidopa/Levodopa 25-100 [Sinemet 25-100*] 1 tab PO TID #90 tab 03/08/20 Escitalopram Oxalate [Lexapro] 10 mg PO DAILY #30 tablet 03/08/20 levoFLOXacin [Levaquin] 500 mg PO DAILY #10 tab 03/08/20 Review of Systems 10-point ROS is otherwise unremarkable General: Weakness, Malaise <Attema,David Castellano Dar - Last Filed: 01/15/22 01:48> Physical Examination General: Alert, In no apparent distress, Oriented x3 HEENT: Atraumatic, PERRLA, Mucous membr. moist/pink, EOMI, Sclerae nonicteric Neck: Supple, 2+ carotid pulse no bruit, No LAD, Without JVD or thyroid abnormality Respiratory: Clear to auscultation bilaterally, Normal air movement Cardiovascular: Regular rate/rhythm, Normal S1 S2 Capillary refill: <2 Seconds Gastrointestinal: Normal bowel sounds, No tenderness Musculoskeletal: No tenderness Integumentary: No rashes Neurological: Normal speech, Normal tone, Normal affect Laboratory Data (last 24 hrs) 01/14/22 20:43: PT 12.2, INR 1.11 01/14/22 20:43: Sodium 140, Potassium 3.5, BUN 12, Creatinine 0.82, Glucose 160 H, Total Bilirubin 0.5, AST 13 L, ALT 30, Alkaline Phosphatase 81 01/14/22 14:39: Sodium 139, Potassium 3.6, BUN 13, Creatinine 0.86, Glucose 174 H, Magnesium 1.9, Total Bilirubin 0.5, AST 19, ALT 29, Alkaline Phosphatase 78 01/14/22 14:39: WBC 10.90, Hgb 13.2 L, Hct 38.7 L, Plt Count 278 <David Sanchez - Last Filed: 01/15/22 01:48> Laboratory Data (last 24 hrs) 01/14/22 20:43: PT 12.2, INR 1.11 01/14/22 20:43: Sodium 140, Potassium 3.5, BUN 12, Creatinine 0.82, Glucose 160 H, Total Bilirubin 0.5, AST 13 L, ALT 30, Alkaline Phosphatase 81 01/14/22 14:39: Sodium 139, Potassium 3.6, BUN 13, Creatinine 0.86, Glucose 174 H, Magnesium 1.9, Total Bilirubin 0.5, AST 19, ALT 29, Alkaline Phosphatase 78 01/14/22 14:39: WBC 10.90, Hgb 13.2 L, Hct 38.7 L, Plt Count 278 <Shane Blair - Last Filed: 01/15/22 09:50> Conclusions/Impression: Assessment: Weakness, deconditioning CAD status post CABG Diabetes most type IIinsulin-dependent Hypertension Hyperlipidemia Parkinson's Hematuria Discussed at length with family including Merissa Jacobo phone number [phone] and son Prateek Jacobo phone number [phone]. Their current preference is that patient remains as ER patient until evaluated by [facility] in the morning. Sophia from [facility] will be coming in the morning to assess patient and determine if he can be admitted back to [facility]. If patient is unable to be admitted back to rehab he will likely require admission to the hospital, further evaluation by physical therapy as family are unable to care for him at home even with additional support including physical therapy, Occupational Therapy that come out twice weekly to their home. Await disposition until evaluated by Sophia this morning. Critical Care: No Time Spent Managing Pts care (In Minutes): 35 <David Sanchez - Last Filed: 01/15/22 01:48> Physician Review: Patient Assessed, Agree with Above Assessment and Plan Physician Review Additional Text: He was seen this morning on rounds around 06:55 AM. He reports that he feels well other than generalized weakness. He has been accepted back to [facility] and will be discharged from the Emergency Department. I have advised him to follow-up with his PCP and/or Urology for further evaluation of his hematuria. He verbalized understanding. Internal Medicine will continue to follow along while he is in the Emergency Department. Shane Blair M.D. <Shane Blair - Last Filed: 01/15/22 09:50>
--- NOTE | 2022-01-15 09:10 | ER ---
Nurse's Notes [facility] Name: Dominic Jacobo Age: 71 yrs Sex: Male : 1950 Arrival Date: 01/14/2022 Time: 14:07 Bed 14 Private MD: Diagnosis: Muscle weakness (generalized) Presentation: 01/14 14:07 Chief complaint: EMS states: pt has been home from [facility] from a fall about a tw2 week ago. states he is just not feeling well. having generalized weakness since 8am today. vs stable. Coronavirus screen: At this time, the client does not indicate any symptoms associated with coronavirus-19. Ebola Screen: Patient denies travel to an Ebola-affected area in the 21 days before illness onset. Initial Sepsis Screen: Does the patient meet any 2 criteria? No. Patient's initial sepsis screen is negative. Does the patient have a suspected source of infection? No. Patient's initial sepsis screen is negative. Risk Assessment: Do you want to hurt yourself or someone else? Patient reports no desire to harm self or others. Onset of symptoms was January 14, 2022. Care prior to arrival: Medication(s) given: Normal saline infusion, approx 300 ml IV initiated. 20 GA, in the right forearm. 14:07 Method Of Arrival: EMS: [facility] tw2 14:07 Acuity: NICOL 3 tw2 14:20 Note provider at bedside at this time. tw2 Triage Assessment: 14:18 General: Appears in no apparent distress. unkempt, Behavior is calm, cooperative, tw2 appropriate for age. Pain: Denies pain. Neuro: Level of Consciousness is awake, alert, obeys commands, Oriented to person, place, time, situation. Cardiovascular: Capillary refill < 3 seconds. Respiratory: Airway is patent Respiratory effort is even, unlabored, Respiratory pattern is regular, symmetrical. GI: Abdomen is round non-distended. Derm: Skin is thin, with poor turgor Skin is dry. Musculoskeletal: Circulation, motion, and sensation intact. Historical: - Allergies: 14:18 ambien; tw2 - Home Meds: 15:01 aspirin 81 mg Oral TbEC 1 tab once daily [Active]; ezetimibe Oral 1 tab once daily tw2 [Active]; clopidogrel 75 mg Oral tab 1 tab once daily [Active]; irbesartan 300 mg Oral tab 1 tab once daily [Active]; metformin 1,000 mg Oral tr24 2 tabs once daily [Active]; metoprolol succinate 25 mg Oral Tb24 2 tabs once daily [Active]; repaglinide 1 mg Oral tab 1 tab 4 times per day [Active]; rosuvastatin 20 mg Oral tab 1 tab once daily [Active]; tolterodine 4 mg Oral cp24 1 cap once daily [Active]; Tresiba FlexTouch U-100 subcutaneous [Active]; - PMHx: 14:18 CAD; High Cholesterol; Diabetes - NIDDM; Hypertension; tw2 - Immunization history:: Adult Immunizations. - Social history:: Smoking status: . - Family history:: not pertinent. Screenin:20 Abuse screen: Denies threats or abuse. Nutritional screening: No deficits noted. tw2 Tuberculosis screening: No symptoms or risk factors identified. Fall Risk Secondary diagnosis (15 points) impaired mobility. Assessment: 15:01 Reassessment: see triage assessment. tw2 15:15 Reassessment: Patient appears in no apparent distress at this time. No changes from tw2 previously documented assessment. Patient and/or family updated on plan of care and expected duration. Pain level reassessed. 16:15 Reassessment: Patient appears in no apparent distress at this time. No changes from tw2 previously documented assessment. Patient and/or family updated on plan of care and expected duration. Pain level reassessed. 17:14 Reassessment: Patient appears in no apparent distress at this time. No changes from tw2 previously documented assessment. provider at bedside at this time. 18:15 Reassessment: Patient appears in no apparent distress at this time. No changes from tw2 previously documented assessment. Patient and/or family updated on plan of care and expected duration. Pain level reassessed. pt spouse at bedside states "i cant take him home with me, this morning he was too weak and i cant lift him and last time yall arranged for him to go to [facility]. Course i told them he wasn't ready to come home but they didn't listen to me", provider notified and community health program coordinator of pt and pts spouse request. 21:02 Reassessment: straight cath pt for urine sample, dark red clotted blood return in aa9 tubing, pt states, "I don't want anybody else trying to get a urine sample, that was what happen last time.". 23:54 Reassessment: Patient appears in no apparent distress at this time. Neuro: Level of aa9 Consciousness is awake, alert, obeys commands, Oriented to person, place, time, situation. Respiratory: Airway is patent Respiratory effort is even, unlabored. 01/15 06:14 Reassessment: Patient appears in no apparent distress at this time. Patient and/or aa9 family updated on plan of care and expected duration. Pain level reassessed. Pain: Denies pain. 06:51 Reassessment: Patient appears in no apparent distress at this time. Patient is alert, aa9 oriented x 3, equal unlabored respirations, skin warm/dry/pink. Neuro: Level of Consciousness is awake, alert, obeys commands, Oriented to person, place, time, situation. Respiratory: Airway is patent Respiratory effort is even, unlabored. 08:58 Reassessment: No changes from previously documented assessment. ko1 Vital Signs: 01/14 14:07 BP 131 / 74; Pulse 88; Resp 17; Temp 98.7(O); Pulse Ox 95% on R/A; Weight 113.4 kg (R); tw2 Height 6 ft. 0 in. (182.88 cm); 15:14 BP 125 / 60; Pulse 78; Resp 17; Pulse Ox 96% on R/A; tw2 16:15 BP 128 / 67; Pulse 72; Resp 17; Pulse Ox 96% on R/A; tw2 17:14 BP 114 / 62; Pulse 78; Resp 17; Pulse Ox 98% on R/A; tw2 22:49 BP 147 / 63; Pulse 63; Resp 18 S; Pulse Ox 97% on R/A; aa9 23:30 BP 130 / 60; Pulse 76; Resp 18 S; Pulse Ox 98% on R/A; aa9 01/15 01:00 BP 128 / 59; Pulse 68; Resp 19 S; Pulse Ox 98% on R/A; aa9 05:03 BP 146 / 81; Pulse 78; Resp 16 S; Pulse Ox 93% on R/A; aa9 06:00 BP 139 / 84; Pulse 75; Resp 18 S; Pulse Ox 93% on R/A; aa9 06:51 BP 154 / 72; Pulse 82; Resp 17 S; Pulse Ox 99% on R/A; Pain 0/10; aa9 08:58 BP 142 / 78; Pulse 84; Resp 18; Temp 97.4(O); Pulse Ox 99% on R/A; Pain 0/10; ko1 01/14 14:07 Body Mass Index 33.91 (113.40 kg, 182.88 cm) tw2 ED Course: 01/14 14:07 Patient arrived in ED. tw2 14:07 Bed in low position. Call light in reach. Side rails up X2. Pulse ox on. NIBP on. Warm tw2 blanket given. 14:14 Efrain Melchor MD is Attending Physician. rt 14:16 Yamilet Heart, TYRA is Primary Nurse. tw2 14:18 Triage completed. tw2 14:20 Arm band placed on. tw2 14:50 Chest Single View XRAY In Process Unspecified. EDMS 17:10 Straight cath inserted, using sterile technique, 18 Fr. Patient tolerated poorly. blood tw2 noted at meatus, pt asked me to "just stop" advancing the tube. Toma Chen served as counting machine operator. pt states "never do that to me again", provider notified of unsuccessful attempt at urine catheterization at this time. 18:26 Spoke to Sophia at [facility]. She suggests to submit to their medical clinic manager for mb4 clinical review. Sophia will arrive "first thing in the morning" to assess the patient for readmit. 18:52 Maintain EMS IV. Dressing intact. Good blood return noted. Site clean \\T\\ dry. Gauge \\T\\ tw 2 site: 20 g RIGHT FA. 19:10 Attending Physician role handed off by Efrain Melchor MD [facility] 19:10 Prateek Velazquez MD is Attending Physician. [facility] 19:32 faxed patient information to [facility]. mw2 19:45 Contacted Sophia from [facility] no answer but I left a voicemail. mw2 20:58 Missed attempt(s): 20 gauge in right forearm. Bleeding controlled, band aid applied, aa9 catheter tip intact. 20:59 Missed attempt(s): 20 gauge in left forearm. Bleeding controlled, band aid applied, aa9 catheter tip intact. 21:00 Inserted saline lock: 22 gauge in left forearm, using aseptic technique. Blood aa9 collected. 21:04 Lactate w/ 2H reflex if indic. Sent. aa9 21:04 COVID-19/FLU A+B Sent. aa9 21:05 Basic Metabolic Panel Sent. aa9 21:05 LFT's Sent. aa9 21:05 NT PRO-BNP Sent. aa9 21:05 PT-INR Sent. aa9 21:44 Urine collection container placed at groin. mb4 23:09 Bladder scan completed. 29mL. mb4 01/15 06:51 Sophia from [facility] called back she is going to give the patient information to her 2 Doctor and get the patient a bed. She will call back soon. 08:53 pt accepted in transfer to [facility] by dr Sandra Quiros, admin appoval given by sandy Peña. 08:58 Report given to TYRA Peña at [facility]. ko1 08:58 No provider procedures requiring assistance completed. IV discontinued, intact, ko1 bleeding controlled, No redness/swelling at site. Pressure dressing applied. 09:09 Attending Physician role handed off by Prateek Velazquez MD rt 09:09 Efrain Melchor MD is Attending Physician. rt Administered Medications: 01/14 21:06 Drug: NS 0.9% 1000 ml Route: IV; Rate: 125 ml/hr; Site: left forearm; aa9 22:53 Drug: NS 0.9% 500 ml Route: IV; Rate: bolus; Site: left forearm; aa9 22:54 Follow up: Response: No adverse reaction; IV Status: Completed infusion; IV Intake: aa9 500ml 22:54 Drug: Meropenem 1 grams Route: IV; Rate: per protocol; Site: left forearm; aa9 Medication: 14:20 VIS not applicable for this client. tw2 Intake: 22:54 IV: 500ml; Total: 500ml. aa9 Outcome: 01/15 08:58 Discharged to Rehab Facility ko1 Condition: stable Discharge instructions given to patient, Instructed on discharge instructions, the need for transfer, Demonstrated understanding of instructions, follow-up care. 09:09 Discharge ordered by MD. rt 09:59 Patient left the ED. ko1 Signatures: Dispatcher [employer] EDMS Lashonda Soares bd Prateek Velazquez MD MD cha Wise, Tara RN RN 2 Gabe Lackey [facility] Daria Hernandez 4 Dolores Cotto, RN RN aa9 Laura Hinson, RN RN ko1 Efrain Melchor MD MD rt
--- NOTE | 2022-01-15 09:10 | EDPHYS ---
Physician Documentation [facility] Name: Dominic Jacobo Age: 71 yrs Sex: Male : 1950 Arrival Date: 01/14/2022 Time: 14:07 Bed 14 Private MD: ED Physician Efrain Melchor HPI: 01/14 16:07 This 71 yrs old Male presents to ER via EMS with complaints of General Weakness. rt 16:07 Onset: The symptoms/episode began/occurred 1 week(s) ago. Severity of symptoms: At rt their worst the symptoms were moderate. Patient presents to the ED with reported generalized weakness. The patient was recently admitted to [facility] where he left about 1 week ago. He was noted to be generally weak at that time. The patient denies any pain at this time, denies other acute complaints. Patient states that is not quite sure why he is in the hospital.'s are moderate in severity, no other aggravating remitting factors. Patient does report a left neck pain that was present while he was in the rehab hospital, improving with Advil.. Historical: - Allergies: 14:18 ambien; tw2 - Home Meds: 15:01 aspirin 81 mg Oral TbEC 1 tab once daily [Active]; ezetimibe Oral 1 tab once daily tw2 [Active]; clopidogrel 75 mg Oral tab 1 tab once daily [Active]; irbesartan 300 mg Oral tab 1 tab once daily [Active]; metformin 1,000 mg Oral tr24 2 tabs once daily [Active]; metoprolol succinate 25 mg Oral Tb24 2 tabs once daily [Active]; repaglinide 1 mg Oral tab 1 tab 4 times per day [Active]; rosuvastatin 20 mg Oral tab 1 tab once daily [Active]; tolterodine 4 mg Oral cp24 1 cap once daily [Active]; Tresiba FlexTouch U-100 subcutaneous [Active]; - PMHx: 14:18 CAD; High Cholesterol; Diabetes - NIDDM; Hypertension; tw2 - Immunization history:: Adult Immunizations. - Social history:: Smoking status: . - Family history:: not pertinent. ROS: 16:07 Eyes: Negative for injury, pain, redness, and discharge, ENT: Negative for injury, rt pain, and discharge, Cardiovascular: Negative for chest pain, palpitations, and edema, Respiratory: Negative for shortness of breath, cough, wheezing, and pleuritic chest pain, Abdomen/GI: Negative for abdominal pain, nausea, vomiting, diarrhea, and constipation, MS/Extremity: Negative for injury and deformity, Skin: Negative for injury, rash, and discoloration, Neuro: Negative for headache, weakness, numbness, tingling, and seizure, Psych: Negative for depression, anxiety, suicide ideation, homicidal ideation, and hallucinations. 16:07 Constitutional: Positive for Positive for weakness, negative for fever. 16:07 Neck: Positive for Positive for pain, negative for injury. Exam: 16:07 Constitutional: This is a well developed, well nourished patient who is awake, alert, rt and in no acute distress. Head/Face: Normocephalic, atraumatic. Eyes: Pupils equal round and reactive to light, extra-ocular motions intact. Lids and lashes normal. Conjunctiva and sclera are non-icteric and not injected. Cornea within normal limits. Periorbital areas with no swelling, redness, or edema. ENT: Nares patent. No nasal discharge, no septal abnormalities noted. Tympanic membranes are normal and external auditory canals are clear. Oropharynx with no redness, swelling, or masses, exudates, or evidence of obstruction, uvula midline. Mucous membranes moist. Neck: Trachea midline, no thyromegaly or masses palpated, and no cervical lymphadenopathy. Supple, full range of motion without nuchal rigidity, or vertebral point tenderness. No Meningismus. Chest/axilla: Normal chest wall appearance and motion. Nontender with no deformity. No lesions are appreciated. Cardiovascular: Regular rate and rhythm with a normal S1 and S2. No gallops, murmurs, or rubs. Normal PMI, no JVD. No pulse deficits. Respiratory: Lungs have equal breath sounds bilaterally, clear to auscultation and percussion. No rales, rhonchi or wheezes noted. No increased work of breathing, no retractions or nasal flaring. Abdomen/GI: Soft, non-tender, with normal bowel sounds. No distension or tympany. No guarding or rebound. No evidence of tenderness throughout. Skin: Warm, dry with normal turgor. Normal color with no rashes, no lesions, and no evidence of cellulitis. MS/ Extremity: Pulses equal, no cyanosis. Neurovascular intact. Full, normal range of motion. Neuro: Awake and alert, GCS 15, oriented to person, place, time, and situation. Cranial nerves II-XII grossly intact. Motor strength 5/5 in all extremities. Sensory grossly intact. Cerebellar exam normal. Normal gait. Psych: Awake, alert, with orientation to person, place and time. Behavior, mood, and affect are within normal limits. 16:07 ECG was reviewed by the Attending Physician. Vital Signs: 14:07 BP 131 / 74; Pulse 88; Resp 17; Temp 98.7(O); Pulse Ox 95% on R/A; Weight 113.4 kg (R); tw2 Height 6 ft. 0 in. (182.88 cm); 15:14 BP 125 / 60; Pulse 78; Resp 17; Pulse Ox 96% on R/A; tw2 16:15 BP 128 / 67; Pulse 72; Resp 17; Pulse Ox 96% on R/A; tw2 17:14 BP 114 / 62; Pulse 78; Resp 17; Pulse Ox 98% on R/A; tw2 22:49 BP 147 / 63; Pulse 63; Resp 18 S; Pulse Ox 97% on R/A; aa9 23:30 BP 130 / 60; Pulse 76; Resp 18 S; Pulse Ox 98% on R/A; aa9 01/15 01:00 BP 128 / 59; Pulse 68; Resp 19 S; Pulse Ox 98% on R/A; aa9 05:03 BP 146 / 81; Pulse 78; Resp 16 S; Pulse Ox 93% on R/A; aa9 06:00 BP 139 / 84; Pulse 75; Resp 18 S; Pulse Ox 93% on R/A; aa9 06:51 BP 154 / 72; Pulse 82; Resp 17 S; Pulse Ox 99% on R/A; Pain 0/10; aa9 08:58 BP 142 / 78; Pulse 84; Resp 18; Temp 97.4(O); Pulse Ox 99% on R/A; Pain 0/10; ko1 01/14 14:07 Body Mass Index 33.91 (113.40 kg, 182.88 cm) tw2 MDM: 01/14 14:17 Patient medically screened. rt 19:48 Differential Diagnosis altered mental status, sepsis, flu. Data reviewed: vital signs, dex nurses notes, lab test result(s), EKG, radiologic studies, plain films. Data interpreted: night monitor: rate is 78 beats/min, rhythm is regular, Pulse oximetry: on room air is 98 %. Test interpretation: by ED physician or midlevel provider: ECG, plain radiologic studies. Counseling: I had a detailed discussion with the patient and/or guardian regarding: the historical points, exam findings, and any diagnostic results supporting the discharge/admit diagnosis, lab results, radiology results. 01/15 09:15 ED course: Accepted by rehab facility, was informed of hematuria, instructed to have rt repeat urinalysis performed to ensure that hematuria clears up.. 01/14 14:30 Order name: CBC with Diff; Complete Time: 15:08 rt 01/14 14:30 Order name: CMP; Complete Time: 15:42 rt 01/14 14:30 Order name: Magnesium; Complete Time: 15:42 rt 01/14 14:30 Order name: UA MICROSCOPIC; Complete Time: 01:28 rt 01/14 14:30 Order name: Troponin High Sensitivity; Complete Time: 15:42 rt 01/14 14:30 Order name: TSH; Complete Time: 15:42 rt 01/14 19:47 Order name: Basic Metabolic Panel; Complete Time: 23:13 [facility] 01/14 19:47 Order name: LFT's; Complete Time: 23:13 [facility] 01/14 19:47 Order name: NT PRO-BNP; Complete Time: 23:13 [facility] 01/14 19:47 Order name: PT-INR; Complete Time: 23:13 [facility] 01/14 19:47 Order name: COVID-19/FLU A+B; Complete Time: 23:13 [facility] 01/14 19:48 Order name: Blood Culture Adult (2) [facility] 01/14 19:48 Order name: Lactate w/ 2H reflex if indic.; Complete Time: 23:13 [facility] 01/15 00:16 Order name: Urine Dipstick-Ancillary; Complete Time: 00:19 [facility] 01/14 14:30 Order name: Urine Dipstick-Ancillary (obtain specimen); Complete Time: 00:12 rt 01/14 14:30 Order name: Chest Single View XRAY; Complete Time: 15:08 rt 01/14 14:30 Order name: EKG; Complete Time: 14:31 rt 01/14 14:30 Order name: EKG - Nurse/Tech; Complete Time: 14:59 rt 01/14 17:26 Order name: Bladder Scanner; Complete Time: 17:40 tw2 01/14 19:47 Order name: Cardiac monitoring; Complete Time: 21:04 [facility] 01/14 19:47 Order name: IV Saline Lock; Complete Time: 21:05 [facility] 01/14 19:47 Order name: Labs collected and sent; Complete Time: 21:04 [facility] 01/14 19:47 Order name: O2 Per Protocol; Complete Time: 21:05 [facility] 01/14 19:47 Order name: O2 Sat Monitoring; Complete Time: 21:05 [facility] 01/14 20:39 Order name: Misc. Order: please obtain urine; Complete Time: 00:12 [facility] 01/15 01:00 Order name: Urine Culture EDMS EC/21 16:07 Rate is 79 beats/min. Rhythm is regular, Normal Sinus Rhythm with No ectopy. Left axis rt deviation noted. NM interval is normal. QT interval is normal. No Q waves. Interpreted by me. Administered Medications: 21:06 Drug: NS 0.9% 1000 ml Route: IV; Rate: 125 ml/hr; Site: left forearm; aa9 22:53 Drug: NS 0.9% 500 ml Route: IV; Rate: bolus; Site: left forearm; aa9 22:54 Follow up: Response: No adverse reaction; IV Status: Completed infusion; IV Intake: aa9 500ml 22:54 Drug: Meropenem 1 grams Route: IV; Rate: per protocol; Site: left forearm; aa9 Disposition Summary: 01/15/22 09:09 Discharge Ordered Location: Rehab Facility rt Problem: an ongoing problem rt Symptoms: are unchanged rt Condition: Stable rt Diagnosis - Muscle weakness (generalized) rt Followup: rt - With: Private Physician - When: Today - Reason: Discharge Instructions: - Discharge Summary Sheet tw2 - Weakness rt Forms: - SBAR form tw2 - Medication Reconciliation Form rt - Thank You Letter rt - Antibiotic Education rt - Prescription Opioid Use rt Signatures: Dispatcher [employer] EDMS Prateek Velazquez MD MD cha Attema, Lee, ORDERLY-C ORDERLY-Cla1 Yamilet Heart RN RN tw2 Dolores Cotto RN RN aa9 Efrain Melchor MD MD rt Corrections: (The following items were deleted from the chart) 17:12 17:12 Bebo preston. tw2 tw2
[2022-01-15 10:22] VITALS: O2SAT 99
[2022-01-15 10:23] VITALS: BP 142/78; TEMP 97.4
--- NOTE | 2022-01-15 13:49 | EKG ---
Test Date: 2022-01-14 Test Time: 14:53:17 Edi Specialist: JAGRUTI MEASUREMENT RESULTS: Intervals: Rate: 79 [place]: 154 QRSD: 94 QT: 404 QTc: 463 [place]: P: 51 [place]: 154 QRS: -23 T: 80 INTERPRETIVE STATEMENTS: Normal sinus rhythm Incomplete right bundle branch block Borderline ECG Compared to ECG 03/08/2020 14:09:35 Incomplete right bundle-branch block now present Atrial premature complex(es) no longer present ST (T wave) deviation no longer present Prolonged QT interval no longer present Electronically Signed On 01-15-22 13:47:34 [employer] by Gutierrez Layton
== END 2022-01-15 09:59 | disposition home or self-care (01) ==
LOC: ER 13:56
DX: M62.81 Muscle weakness (generalized) (principal); E11.9 Type 2 diabetes mellitus without complications; I10 Essential (primary) hypertension; E78.00 Pure hypercholesterolemia, unspecified; Z20.822 Contact with and (suspected) exposure to COVID-19; Z79.82 Long term (current) use of aspirin; Z79.4 Long term (current) use of insulin; Z88.8 Allergy status to other drugs, medicaments and biological substances
CPT/HCPCS: 93005; 87040 ×2; 85025; 87086; 80048; 36415; 83735; 85610; 80076; 83605; 84443; 84484; 80053; 83880; 0240U; 71045; 51702; 96374; 99284; J2185; J7040; J7030; 81003; 81015; 87088

== ENCOUNTER 2023-01-08 14:43 | Inpatient (IN) | payer OTHER ==
--- OUTSIDE RECORDS SUMMARY | 2023-01-08 14:55 | XMS REPORT | Continuity of Care Document ---
:1950 Author Organization [facility] t Address [address] [place] [address] [place] [id number] Care Team Providers Name Role Phone Asked, No Pcp Primary Care Physician Unavailable [id number] Attending Clinician Unavailable Kash Valenzuela Attending Clinician Unavailable Maddie MARY, Buck Castellano Attending Clinician Unavailable DASH MATHEWS Attending Clinician Unavailable Mary Amezquita MD Attending Clinician Dash Mathews MD Attending Clinician Rachel Orourke MD Attending Clinician Catalina Doll MD Attending Clinician Doctor Unassigned, Novice Attending Clinician Unavailable Lalito Neely MD Attending Clinician LALITO NEELY Attending Clinician Unavailable VICTORINA ECHAVARRIA Attending Clinician Unavailable Victorina Echavarria MD Attending Clinician HANNAH CAI Attending Clinician Unavailable FORREST WALDRON Attending Clinician Unavailable Koffi CERTIFIED ENDOSCOPY TECHNICIAN, Forrest Attending Clinician Madison Solitario Anavella Attending Clinician Unava ilable Davida Shepard CERTIFIED ENDOSCOPY TECHNICIAN Attending Clinician Unavailable Hannah Cai V Attending Clinician Unavailable Jatin Andrea Attending Clinician Unavailable Brandi Narayan Attending Clinician Unavailable GUTIERREZ CARRASQUILLO Attending Clinician Unavailable Gutierrez Carrasquillo MD Attending Clinician Katherine MARY, Doug Attending Clinician Unavailable NATHAN SALAZAR Attending Clinician Unavailable Vandana RENEE, Margarita Castellano Attending Clinician Frank Jennings MD Attending Clinician FRANK JENNINGS Attending Clinician Unavailable COLTON ELLINGTON Attending Clinician Unavailable [id number] Admitting Clinician Unavailable DASH MATHEWS Admitting Clinician Unavailable Dash Mathews MD Admitting Clinician KITTY SETH Admitting Clinician Unavailable LALITO NEELY Admitting Clinician Unavailable VICTORINA ECHAVARRIA Admitting Clinician Unavailable FORREST WALDRON Admitting Clinician Unavailable Vanesa Solitario Anav Admitting Clinician Unavailable Davida Shepard Admitting Clinician Unavailable KIRAN YEE Admitting Clinician Unavailable Hannah Cai V Admitting Clinician Unavailable Brandi Narayan Admitting Clinician Unavailable GUTIERREZ CARRASQUILLO Admitting Clinician Unavailable COLTON ELLINGTON Admitting Clinician Unavailable Payers Payer Name Policy Type Policy Number Effective Date Expiration Date S [facility] [id number] AET AET [id number] AETNA 53 [id number] 2002 [facility] 00:00:[address] [facility] AETNA 53 [id number] [facility] MEDICARE A B [id number] 2013 00:00:00 AETNA INDEMNITY [id number] 2013 NON CONTR 00:00:00 MEDICARE MB [id number] [facility] NOVITAS [facility] MEDICARE MB [id number] [facility] NOV[facility] - [facility] Problems Condition Condition Condition Status Onset Resolution Last Treating Co mments Source Name Details Category Date Date Treatment Clinician Date Obesity Obesity Disease Active Univers (BMI (BMI 9-18 ity of 30-39.9) 30-39.9) 00:00: [place] 00 Medical Branch Encounter Encounter Disease Active Uni vers for for 9-17 ity of pre-operat pre[place]operat [place] tyrone tyrone 00 Medical cardiovasc cardiovasc Br anch ular ular clearance clearance Sepsis, Sepsis, Disease Active Univers due to due to 16 ity of unspecifie unspecifie [place] 00 Medical organism, organism, Bran ch unspecifie unspecifie d whether d whether acute acute organ organ dysfunctio dysfunctio n present n present Unspecifie Unspecifie Disease Active U nivers d d 1-06 ity of dementia, dementia, 00:00: [place] unspecifie unspecifie 00 Me dical d d Branch severity, severity, with with psychotic psychotic disturbanc disturbanc e e Diabetes Diabetes Disease Active Unive rs mellitus mellitus 1-02 ity of due to due to 00:00: [place] underlying underlying 00 Me dical condition condition Bran ch with with diabetic diabetic polyneurop polyneurop athy athy Cerebral Cerebral Disease Active 2021-02 Unive rs infarction infarction 2-07 it y of , , 00:00: [place] unspecifie unspecifie 00 Me dical d d Branch Angina Angina Disease Recurre 2020-[address] pectoris pectoris nhe 2-08 [facility] 00:00: Medical 00 Center Atheroscle Atheroscle Disease Active U nivers rosis of rosis of 1-15 ity of coronary coronary 00:00: [place] artery artery 00 Medical bypass bypass Branch graft(s) graft(s) without without angina angina pectoris pectoris Hypertensi Hypertensi Disease Active U nivers ve heart ve heart 1-15 ity of disease disease 00:00: [place] without without 00 Medical heart heart Branch failure failure Hypothyroi Hypothyroi Disease Active U nivers dism, dism, 1-15 ity of unspecifie unspecifie [place] d [place] 00 Medical Branch Iron Iron Disease Active Univers deficiency deficiency 1-15 it y of anemia, anemia, 00:00: [place] unspecifie unspecifie 00 Nd dical d d Branch Muscle Muscle Disease Active Univers weakness weakness 1-15 ity of (generaliz (generaliz 00:[place]: [place] ed[place] ed) 00 Medical Branch Other Other Disease Active Univers abnormalit abnormalit 1-15 it y of ies of ies of 00:00: [place] gait and gait and 00 Medica l mobility mobility Branch Other lack Other lack Disease Active U nivers of of 1-15 ity of coordinati coordinati 00:00: [place] on on 00 Medical Branch Other Other Disease Active 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 00:00[place] disorders disorders 00 [facility] Branch Parkinson' Parkinson' Disease Active U nivers s disease s disease 1-15 ity of 00:00: [place] 00 Medical Branch Personal Personal Disease Active Unive rs history of history of 1-15 it y of urinary urinary 00:00: [place] (tract) (tract) 00 Medical infections infections Br anch Presence Presence Disease Active Unive rs of of 1-15 ity of aortocoron aortocoron 00:00: [place] job bypass job bypass 00 Nd dical graft graft Branch Type 2 Type 2 Disease Active Univers diabetes diabetes 1-15 ity of mellitus mellitus 00:00: [place] without without 00 Medical complicati complicati Br anch ons ons Retention Retention Disease Active Uni vers of urine, of urine, 1-15 ity of unspecifie unspecifie 00:[place] d d 00 Medical Branch Metabolic Metabolic Disease Active Uni vers encephalop encephalop 1-09 it y of athy athy 00:00: [place] 00 Medical Branch Abnormal Abnormal Disease [facility] stress stress 00:00: Medical test test 00 Center CAD CAD Disease Active [facility] (coronary (coronary 7 [facility] artery artery 00:00: Medical disease) disease) 00 [place] Diabetes Diabetes Disease Active [facility] 00[facility] Medical [place] Hypertensi Hypertensi Disease Active [facility] 08[facility] Medical [place] Hyperlipid Hyperlipid Disease Active [facility] emia emia 08-[facility] 00:[facility]: Medical 00 [place] No known No known Disease Unive rs active active ity of problems problems [facility] [id number] OAB Problem Common (overactiv Spirit e bladder) - [facility] [id number] Nocturnal Problem Commo n enuresis Spirit [facility] Urge Urge Problem Common urinary urinary Spirit incontinen incontinen - [facility] [id number] 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 Spirit y [facility] [id number] BPH loc w Problem Com mon urin Spirit obs/LUTS - [facility] [id number] Functional Problem Co mmon urinary Spirit incontinen - [facility] 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 PROMETHA Allergy Active Other 2020-[address] ZINE 04-01 [facility] 00:[facility]: Medical [place] Prometha Drug Active Other (See 2020-[address] zine Allergy Comments) 04-01 [facility] 00:[facility]: Medical [place] ZOLPIDEM DRUG Active Other-Cmnt Univ ers INGREDI 05-27 ity of 00:00: [address] ZOLPIDEM Allergy Active [facility] 05[facility]27 [facility] 00[facility]: Medical 00 [place] Zolpidem Drug Active Other [facility] Allergy 4 reaction( [facility] 00:[facility]: s): Medical hallucina Center chante No Known DA Active [facility] Allergie 09-28 [place] [facility] 00:[facility]: d 00 [facility] Center NO KNOWN Drug Active [facility] ALLERGIE Class ity of S [facility] NO KNOWN Allergy Active [facility] Family History Family Member Diagnosis Comments Start Date Stop Date Source Natural father Cancer [facility] Natural father Diabetes [facility] Natural father Heart disease [facility] Natural mother Coronary artery [facility] S t [facility] disease [facility] Natural mother Diabetes [facility] Social History Social Habit Start Date Stop Date Quantity Comments Source Gender identity Universit y [facility] Sexual orientation [facility] History of Tobacco [facility] - Use [facility] Exposure to 2022-03-18 2022-03-28 Not sure University of SARS-CoV-2 (event) 00:00:00 11:00:00 [facility] Alcohol intake 2021-02-01 2021-02-01 Current [facility] 00:00:00 00:00:00 non-drinker of Medical Ce nter alcohol (finding) History of Social 2019-09-30 2019-09-30 Univers ity of function 00:00:00 00:00:00 [facility] Tobacco Comment 2018-08-10 2018-08-10 smokes a pipe [facility] 00:00:00 00:00:00 [facility] Tobacco use and 2018-07-09 2018-07-09 Smokeless Universit y of exposure 00:00:00 00:00:00 tobacco non-user [facility] Sex Ass[birth year] [facility] 00:00:00 00:00:00 [facility] Smoking Status Start Date Stop Date Source Tobacco smoking consumption [facility] unknown Never Smoker [facility] nter Light tobacco smoker 2018-08-10 00:00:00 [facility] Smokes tobacco daily 2018-07-09 00:00:00 Univers ity [facility] Medications Ordered Filled Start Stop Current Ordering Indication Dosage Frequency Signature Comments Components Source Medication Medication Date Date Medication? Clinician (SIG) Name Name clopidogrel Yes 75mg Take 1 Univ ers 75 mg 9-27 tablet by ity of tablet 18:22: mouth in [place] 50 the Medical morning. Branch rosuvastati 2023-0 Yes 20mg Take 1 Univ ers n 20 mg 9-27 tablet by ity of tablet 18:22: mouth at [place] [address] bedtime. Medical Branch ezetimibe 2022-0 Yes 10mg Take 1 Univer s 10 mg 9-27 tablet by ity of tablet 18:22: mouth in [place] [address] the Medical morning. Branch aspirin 81 2022-0 Yes 81mg Take 1 Unive rs mg chewable 9-27 tablet by ity of tablet 18:22: mouth in [place] [address] the Medical morning. Branch tolterodine 2022-0 Yes 4mg Take 1 Univ ers LA 4 mg 24 9-27 capsule by ity of hr capsule 18:22: mouth in [facility] as 50 the Medical morning. Branch insulin 2022-0 Yes Inject as Unive rs regular, 11-20 directed. ity of human 18:22: Sliding [place] (NOVOLIN R 50 scale Medical INJECTION) Branch vit 2022-0 Yes 1{tbl} Take 1 Univers C/E/Zn/cortez 9-27 tablet by ity of r/lutein/ze 18:22: mouth [place] 50 the Medical (PRESERVISI morning Branc h ON AREDS-2 and 1 ORAL) tablet in the evening. clopidogrel 2022-0 Yes 75mg Take 1 Univ ers 75 mg 9-27 tablet by ity of tablet 18:22: mouth in [place] [address] the Medical morning. Branch rosuvastati 2022-0 Yes 20mg Take 1 Univ ers n 20 mg 9-27 tablet by ity of tablet 18:22: mouth at [place] [address] bedtime. Medical Branch ezetimibe 2022-0 Yes 10mg Take 1 Univer s 10 mg 9-27 tablet by ity of tablet 18:22: mouth in [place] [address] the Medical morning. Branch aspirin 81 2022-0 Yes 81mg Take 1 Unive rs mg chewable 9-27 tablet by ity of tablet 18:22: mouth in [place] 50 the Medical morning. Branch tolterodine 2022-0 Yes 4mg Take 1 Univ ers [place] 4 mg 24 9-27 capsule by ity of hr capsule 18:22: mouth in [facility] as 50 the Medical morning. Branch insulin 2022-0 Yes Inject as Unive rs regular, 11-20 directed. ity of human 18:22: Sliding [place] (NOVOLIN R 50 scale Medical INJECTION) Branch vit 0 Yes 1{tbl} Take 1 Univers C/E/Zn/cortez 9-27 tablet by ity of r/lutein/ze 18:22: [place] ax[place] 50 the Medical (PRESERVISI morning Branc h ON AREDS-2 and 1 ORAL) tablet in the evening. clopidogrel 3-0 Yes 75mg Take 1 Univ ers 75 mg 9-27 tablet by ity of tablet 18:22: mouth in [place] 50 the Medical morning. Branch rosuvastati 2022-0 Yes 20mg Take 1 Univ ers n 20 mg 9-27 tablet by ity of tablet 18:22: mouth at [place] [address] bedtime. Medical Branch ezetimibe 2022-0 Yes 10mg Take 1 Univer s 10 mg 9-27 tablet by ity of tablet 18:22: mouth in [place] 50 the Medical morning. Branch aspirin 81 2022-0 Yes 81mg Take 1 Unive rs mg chewable 9-27 tablet by ity of tablet 18:22: mouth in [place] 50 the Medical morning. Branch tolterodine 2022-0 Yes 4mg Take 1 Univ ers [place] 4 mg 24 9-27 capsule by ity of hr capsule 18:22: mouth in [place] 50 the Medical morning. Branch insulin 0 Yes Inject as Unive rs regular, 9-27 directed. ity of human 18:22: Sliding [place] (NOVOLIN R 50 scale Medical INJECTION) Branch vit 2022-0 Yes 1{tbl} Take 1 Univers C/E/Zn/cortez 9-27 tablet by ity of r/lutein/ze 18:22: [place] axan 50 the Medical (PRESERVISI morning Branc h ON AREDS-2 and 1 ORAL) tablet in the evening. clopidogrel 3-0 Yes 75mg Take 1 Univ ers 75 mg 9-27 tablet by ity of tablet 18:22: mouth in [place] 50 the Medical morning. Branch rosuvastati 2022-0 Yes 20mg Take 1 Univ ers n 20 mg 9-27 tablet by ity of tablet 18:22: mouth at [place] [address] bedtime. Medical Branch ezetimibe 2022-0 Yes 10mg Take 1 Univer s 10 mg 9-27 tablet by ity of tablet 18:22: mouth in [place] 50 the Medical morning. Branch aspirin 81 2022-0 Yes 81mg Take 1 Unive rs mg chewable 9-27 tablet by ity of tablet 18:22: mouth in [place] 50 the Medical morning. Branch tolterodine 2022-0 Yes 4mg Take 1 Univ ers [place] 4 mg 24 9-27 capsule by ity of hr capsule 18:22: mouth in [facility] as 50 the Medical morning. Branch clopidogrel 2022-0 Yes 75mg Take 1 Univ ers 75 mg 9-27 tablet by ity of tablet 18:22: mouth in [place] 50 the Medical morning. Branch rosuvastati 2022-0 Yes 20mg Take 1 Univ ers n 20 mg 9-27 tablet by ity of tablet 18:22: mouth at [place] [address] bedtime. Medical Branch ezetimibe 2022-0 Yes 10mg Take 1 Univer s 10 mg 9-27 tablet by ity of tablet 18:22: mouth in [place] 50 the Medical morning. Branch aspirin 81 2022-0 Yes 81mg Take 1 Unive rs mg chewable 9-27 tablet by ity of tablet 18:22: mouth in [place] 50 the Medical morning. Branch tolterodine 2022-0 Yes 4mg Take 1 Univ ers [place] 4 mg 24 9-27 capsule by ity of hr capsule 18:22: mouth in [facility] as 50 the Medical morning. Branch sulfamethox 2022-0 2022- No .5{tbl} Take 0.5 Univers azole-trime 11-20 tablets by i ty of thoprim 18:22: 00:00 mouth in [place] (BACTRIM) 49 :00 the Medical 400-80 mg morning. Branch per tablet acetaminoph 2022-2022- No 650mg Take 2 Un anita en 11-20 tablets by ity of (TYLENOL) 18:22: 00:00 mouth [place] 325 mg 49 :00 every 4 Medical tablet (four) Branch hours as needed for Temp > 38.5 C or Pain (scale 1-3). lidocaine 2022-2022- No 5mL 5 mL, Univer s 1% (PF) 11-20 Subcutaneo ity o f (XYLOCAINE) 15:15: 18:00 , ONCE, [place] injection 5 00 :00 1 dose, On Me dical mL Wed Branch 11/20/22 at 1015, Routine NaCl 0.9% Yes 10mL 10 mL, Univer s (NS) 11-20 Slow IV ity of injection 15:03: [place], [place]N, [place] 10 mL 21 Starting Medical on Fri11/20/22 at 1003, Until Discontinu ed, Routine, line maintenanc e metoprolol 2022- No 25mg Take 1 Univ ers succinate 11-20 tablet by ity of XL 25 mg 24 12:58: 00:00 mouth in [place] hr tablet 33 :00 the Medical morning Branch and 1 tablet in the evening. repaglinide 2022- No 1mg Take 1 Uni vers 1 mg tablet 11-20 tablet by it y of 12:58: 00:00 mouth in [place] 33 :00 the Medical morning Branch and 1 tablet at noon and 1 tablet in the evening. Take before meals. metFORMIN 0 2022- No 1000mg Take 1 Uni vers 1,000 mg 24 11-20 tablet by it y of hr tablet 12:58: 00:00 mouth in [facility] as 33 :00 the Medical morning Branch and 1 tablet in the evening. Take with meals. metroNIDAZO 2022- Yes [id number] 500mg Take 1 Univers LE 500 mg 11-20- tablet by ity of tablet 00:00: 04:59 mouth [place] 00 :00 every 12 Medical (twelve) Branch hours for 32 days. NaCl 0.9% 2022- Yes [id number] 2g Inject 2 g Univers (NS) PgBk 11-20-30 intravenou ity of 100 mL with 00:00: 04:59 sly every [place] ceFAZolin 2 00 :00 8 (eight) Med ical gram SolR 2 hours for Bra nch g 32 days. metroNIDAZO 0 2022- Yes [id number] 500mg Take 1 Univers LE 500 mg 11-20- tablet by ity of tablet 00:00: 04:59 mouth [place] 00 :00 every 12 Medical (twelve) Branch hours for 32 days. NaCl 0.9% 0 2022- Yes [id number] 2g Inject 2 g Univers (NS) PgBk 11-20-30 intravenou ity of 100 mL with 00:00: 04:59 sly every [place] ceFAZolin 2 00 :00 8 (eight) Med ical gram SolR 2 hours for Bra nch g 32 days. acetaminoph 2022- Yes [id number] 650mg Take 2 Univers en 325 mg 9-27 10-28 tablets by ity of tablet 00:00: 04:59 mouth [place] 00 :00 every 6 Medical (six) Branch hours as needed for Pain (scale 1-3) for up to 30 days. carbidopa-l 2022- Yes [id number] 1{tbl} Take 1 Univers evodopa 9-27 10-28 tablet by ity of 25-100 mg 00:00: 04:59 mouth [place] tablet 00 :00 every 4 Medical (four) Branch hours for 30 days. acetaminoph 2022- Yes [id number] 650mg Take 2 Univers en 325 mg 9-27 10-28 tablets by ity of tablet 00:00: 04:59 mouth [place] 00 :00 every 6 Medical (six) Branch hours as needed for Pain (scale 1-3) for up to 30 days. carbidopa-l 2022- Yes [id number] 1{tbl} Take 1 Univers evodopa 9-27 10-28 tablet by ity of 25-100 mg 00:00: 04:59 mouth [place] tablet 00 :00 every 4 Medical (four) Branch hours for 30 days. metroNIDAZO 2022- Yes 500mg 500 mg, U nivaubree LE (FLAGYL) 11-18 Oral, ity of tablet 500 16:30: 12:59 Q12H, 68 [place] mg 00 :00 doses, Medical First dose Branch on 11/18/22 at 1130, Last dose on 12/21/22 at 2000, Routine
Reason for Anti-Infec tive: Documented Infection< br>Documen rachel Infection Site: Skin / Soft Tissue
Duration of Therapy: 14 days ceFAZolin 2022- Yes 2000mg 2,000 mg, Univers (ANCEF) 9- 10-28 Intravenou ity o f 2,000 mg in 22:00: 21:59 s, Q8H [place] as NaCl 0.9% 00 :00 ABX, 114 Medica l (NS) 100 mL doses, Branch MINI-BAG First dose on Fri11/13/22 at 1700, Last dose on Fri12/21/22 at 0900, Administer over 30 Minutes, 100 mL
Reas on for Anti-Infec tive: Documented Infection< br>Documen rachel Infection Site: Bone
Du ration of Therapy: Other (see Comments) sodium Yes 16[oz_a 16 oz, Univer s hypochlorit 9-19 v] Topical, ity of e 0.5% 01:00: BID, First [place] (DAKINS) 00 dose Medical solution 16 (after Branch oz last modificati on) on Fri11/11/22 at 1999, Until Discontinu ed, Routine sodium Yes 16[oz_a 16 oz, Univer s hypochlorit 9-19 v] Topical, ity of e 0.5% 01:00: BID, First (DAKINS) 00 dose Medical solution 16 (after Branch oz last modificati on) on Fri11/11/22 at 1999, Until Discontinu ed, Routine vancomycin 2022- Yes 1250mg 1,250 mg, Univers 1,250 mg in 11-11 IV ity of NaCl 0.9% 19:30: 11:29 [place]back, [place] (NS) 250 mL 00 :00 Q8H ABX, 5 Me dical VIAL-MATE doses, Branch IV First dose piggyback (after last modificati on) on Fri11/11/22 at 1430, Last dose on Fri11/12/22 at 2230, Administer over 90 Minutes, 250 mL
Reas on for Anti-Infec tive: Empiric Therapy for Suspected Infection< br>Empiric Therapy Site: Skin / Soft tissue
Duration of therapy: 72 hours vancomycin 2022- No 1250mg 1,250 mg, Univers 1,250 mg in 11-11 IV ity of NaCl 0.9% 19:30: 04:22 [place]back, [place] (NS) 250 mL 00 :00 Q8H ABX, 5 Me dical VIAL-MATE doses, Branch IV First dose piggyback (after last modificati on) on Fri11/11/22 at 1430, Last dose on Fri11/12/22 at 2230, Administer over 90 Minutes, 250 mL
Reas on for Anti-Infec tive: Empiric Therapy for Suspected Infection< br>Empiric Therapy Site: Skin / Soft tissue
Duration of therapy: 72 hours vitamin 2023-0 Yes 1000ug 1,000 mcg, Un anita B-12 - Oral, ity of (CYANOCOBAL 14:00: [place] DAVIS) 00 First dose Medical tablet on Fri Branch 1,000 mcg 11/11/22 at 0900, Until Discontinu ed, Routine enoxaparin 2023-0 Yes 40mg 40 mg, Unive rs (LOVENOX) 9-18 Subcutaneo ity of injection 14:00: [place], [place]ILY, [place] 40 mg 00 First dose Medical (after Branch last modificati on) on Fri11/11/22 at 0900, Until Discontinu ed, Routine vitamin 2023-0 Yes 1000ug 1,000 mcg, Un anita B-12 11-11 Oral, ity of (CYANOCOBAL 14:00: [place], [place] DAVIS) 00 First dose Medical tablet on Fri Branch 1,000 mcg 11/11/22 at 0900, Until Discontinu ed, Routine enoxaparin 3-0 Yes 40mg 40 mg, Unive rs (LOVENOX) 9-18 Subcutaneo ity of injection 14:00: [place], DAILY, [place] 40 mg 00 First dose Medical (after Branch last modificati on) on Fri11/11/22 at 0900, Until Discontinu ed, Routine FENTanyl PF 2022-0 Yes 12.5ug 12.5 mcg, Univers (SUBLIMAZE 9-18 Slow IV ity of (PF)) 04:32: Push, [place] injection 31 Q6HPRN, Medical 12.5 mcg Starting Branch on 11/10/22 at 2332, Until Discontinu ed, Routine, Pain (scale 7-10) FENTanyl PF 2023-0 Yes 12.5ug 12.5 mcg, Univers (SUBLIMAZE 9-18 Slow IV ity of (PF)) 04:32: Push, [place] injection 31 Q6HPRN, Medical 12.5 mcg Starting Branch on 11/10/22 at 2332, Until Discontinu ed, Routine, Pain (scale 7-10) tamsulosin 3-0 Yes .4mg 0.4 mg, Univ ers (FLOMAX) 9-18 Oral, QHS, ity o f capsule 0.4 02:00: First dose [place] mg 00 on [facility] 11/10/22 at Branch 2100, Until Discontinu ed, Routine rosuvastati 2023-0 Yes 20mg 20 mg, Univ ers n (CRESTOR) 9-18 Oral, QHS, it y of tablet 20 02:00: First dose [place] mg 00 on [facility] 11/10/22 at Branch 2100, Until Discontinu ed, Routine mirtazapine 3-0 Yes 15mg 15 mg, Univ ers (REMERON) 9-18 Oral, QHS, ity of tablet 15 02:00: First dose [place] mg 00 on [facility] 11/10/22 at Branch 2100, Until Discontinu ed, Routine finasteride 3-0 Yes 5mg 5 mg, Unive rs (PROSCAR) 9-18 Oral, QHS, ity of tablet 5 mg 02:00: First dose [place] 00 on [facility] 11/10/22 at Branch 2100, Until Discontinu ed, Routine tamsulosin 3-0 Yes .4mg 0.4 mg, Univ ers (FLOMAX) 9-18 Oral, QHS, ity o f capsule 0.4 02:00: First dose [place] mg 00 on [facility] 11/10/22 at Branch 2100, Until Discontinu ed, Routine rosuvastati 2023-0 Yes 20mg 20 mg, Univ ers n (CRESTOR) 9-18 Oral, QHS, it y of tablet 20 02:00: First dose [place] mg 00 on [facility] 11/10/22 at Branch 2100, Until Discontinu ed, Routine mirtazapine 2023-0 Yes 15mg 15 mg, Univ ers (REMERON) 9-18 Oral, QHS, ity of tablet 15 02:00: First dose [place] mg 00 on [facility] 11/10/22 at Branch 2100, Until Discontinu ed, Routine finasteride 2023-0 Yes 5mg 5 mg, Unive rs (PROSCAR) 9-18 Oral, QHS, ity of tablet 5 mg 02:00: First dose [place] 00 on [facility] 11/10/22 at Branch 2100, Until Discontinu ed, Routine cyanocobala 2022- No 1000ug 1,000 mcg, Univers min (DODEX) 11-11 Intramuscu i ty of injection 00:45: 01:49 [place], ONCE, [place] 1,000 mcg 00 :00 1 dose, On Medi juan m [facility] 11/10/22 at 1945, Routine sodium 2022- No 16[oz_a 16 oz, Unive rs hypochlorit 11-10 v] Topical, ity of e 0.5% 22:45: 14:28 DAILY, [place] (DAKINS) 00 :20 First dose Medic al solution 16 on [facility] oz 11/10/22 at 1745, Until Discontinu ed, Routine dextrose Yes 250mL 250 mL, IV Un [facility] 10% (D10W) 11-10 Infusion, ity of bolus 21:01: PRN - SEE [place] infusion 50 INSTRUCTIO Medic al 250 mL NS, Branch Administer over 60 Minutes, Other, If blood glucose is < or = 70 mg/dL and patient is unable to swallow or has mental status changes, Starting on [facility] 11/10/22 at 1601
If blood glucose is < or = 70 mg/dL and patient is unable to swallow or has mental status changes (Give glucagon order if patient needs fluid restrictio n): IF IV access available: Dextrose 10%. 1. 125 mL (? bag) of D10W IV infusion - equivalent to 12.5 g dextrose 2. Blood glucose - draw blood glucose 15 minutes after D10W Administra tion. 3. If blood glucose is < 80 mg/dL, repeat.
dextrose Yes 250mL 250 mL, IV Un anita 10% (D10W) 11-10 Infusion, ity of bolus 21:01: PRN - SEE [place] infusion 50 INSTRUCTIO Medic al 250 mL NS, Branch Administer over 60 Minutes, Other, If blood glucose is < or = 70 mg/dL and patient is unable to swallow or has mental status changes, Starting on [place] 11/10/22 at 1601
If blood glucose is < or = 70 mg/dL and patient is unable to swallow or has mental status changes (Give glucagon order if patient needs fluid restrictio n): IF IV access available: Dextrose 10%. 1. 125 mL (? bag) of D10W IV infusion - equivalent to 12.5 g dextrose 2. Blood glucose - draw blood glucose 15 minutes after D10W Administra tion. 3. If blood glucose is < 80 mg/dL, repeat.
glucagon Yes 1mg 1 mg, Univers (GLUCAGEN 11-10 Intramuscu ity of DIAGNOSTIC 21:01: [place], [place]N, [place] KIT) 44 Starting Medical injection 1 on [facility] 11/10/22 at 1601, Until Discontinu ed, SEFERINO, Blood Glucose < or = 70 mg/dL and patient is NPO, unable to swallow or has mental changes. glucagon Yes 1mg 1 mg, Univers (GLUCAGEN 11-10 Intramuscu ity of DIAGNOSTIC 21:01: lar, PRN, [place] KIT) 44 Starting Medical injection 1 on [facility] 11/10/22 at 1601, Until Discontinu ed, SEFERINO, Blood Glucose < or = 70 mg/dL and patient is NPO, unable to swallow or has mental changes. metroNIDAZO 2022- Yes 500mg 500 mg, U nivers LE (FLAGYL) 11-10 Oral, ity of tablet 500 21:00: 12:59 Q12H, 12 [place] mg 00 :00 doses, Medical First dose Branch on [place] 11/10/22 at 1600, Last dose on Fri11/15/22 at 2000, Routine
Reason for Anti-Infec tive: Documented Infection< br>Documen rachel Infection Site: Skin / Soft Tissue
Duration of Therapy: 7 days ceFEPIme 2022- Yes 2000mg 2,000 mg, U nivers (MAXIPIME) 11-10 IV ity of 2,000 mg in 21:00: 20:59 [facility] [place] NaCl 0.9% 00 :00 Q8H ABX, Medica l (NS) 100 mL 18 doses, Bra [facility] MINI-BAG First dose on Fri11/10/22 at 1600, Last dose on 11/16/22 at 0800, Administer over 4 Hours, 100 mL
Reas on for Anti-Infec tive: Documented Infection& lt;br>Docu mented Infection Site: Skin / Soft Tissue
Duration of Therapy: 7 days metroNIDAZO 2022- No 500mg 500 mg, U nivers LE (FLAGYL) 11-10 Oral, ity of tablet 500 21:00: 01:53 Q12H, 12 [place] mg 00 :00 doses, Medical First dose Branch on Fri11/10/22 at 1600, Last dose on Fri11/15/22 at 2000, Routine
Reason for Anti-Infec tive: Documented Infection< br>Documen rachel Infection Site: Skin / Soft Tissue
Duration of Therapy: 7 days ceFEPIme 2022- No 2000mg 2,000 mg, U nivers (MAXIPIME) 11-10 IV ity of 2,000 mg in 21:00: 17:25 [place] NaCl 0.9% 00 :09 Q8H ABX, Medica l (NS) 100 mL 18 doses, [facility] MINI-BAG First dose on Fri11/10/22 at 1600, Last dose on Fri11/16/22 at 0800, Administer over 4 Hours, 100 mL
Reas on for Anti-Infec tive: Documented Infection& lt;br>Docu mented Infection Site: Skin / Soft Tissue
Duration of Therapy: 7 days sodium 2022- No PRN, Univers chloride 11-10 Starting ity of 0.9 % 16:39: 17:45 on [facility] [place] irrigation 00 :30 11/10/22 at Med ical solution 1139, Branch Until [facility] 11/10/22 at 1245, Intra-op sulfur 2022- No [id number] 5mL 5 mL, Univ ers hexafluorid 11-10 Intravenou i ty of e microsphr 14:15: 14:04 s, ONCE, 1 [place] (LUMASON) 00 :00 dose, On Medica l injection 5 Sun Branch mL 11/10/22 at 0915, Routine
managing member approving Restricted medication : MIRELA ESCUDERO tolterodine 3-0 Yes 4mg 4 mg, Unive rs [place] (DETROL -17 Oral, ity of [place]) 24 hr 14:00: DAILY, [place] capsule 4 00 First dose Medi juan m mg on Sun Branch 11/10/22 at 0900, Until Discontinu ed, Routine escitalopra 2022-0 Yes 10mg 10 mg, Univ ers m oxalate 9 Oral, ity of (LEXAPRO) 14:00: DAILY, [place] tablet 10 00 First dose Medi juan m mg on Sun Branch 11/10/22 at 0900, Until Discontinu ed, Routine docusate 2022-0 Yes 100mg 100 mg, Unive rs (COLACE) 9 Oral, ity of capsule 100 14:00: DAILY, [place] mg 00 First dose Medical on [place] Branch 11/10/22 at 0900, Until Discontinu ed, Routine tolterodine 2022-0 Yes 4mg 4 mg, Unive rs [place] (DETROL 11-10 Oral, ity of [place]) 24 hr 14:00: DAILY, [place] capsule 4 00 First dose Medi juan m mg on Sun Branch 11/10/22 at 0900, Until Discontinu ed, Routine escitalopra 2022-0 Yes 10mg 10 mg, Univ ers m oxalate 11-10 Oral, ity of (LEXAPRO) 14:00: DAILY, [place] tablet 10 00 First dose Medi juan m mg on Sun Branch 11/10/22 at 0900, Until Discontinu ed, Routine docusate 2022-0 Yes 100mg 100 mg, Unive rs (COLACE) - Oral, ity of capsule 100 14:00: DAILY, [place] mg 00 First dose Medical on Sun Branch 11/10/22 at 0900, Until Discontinu ed, Routine insulin 2022-0 Yes Inject as Unive rs regular, 11-10 directed. ity of human 13:38: Sliding [place] (NOVOLIN R 52 scale Medical INJECTION) Branch sulfamethox 0 Yes .5{tbl} Take 0.5 Univers azole-trime 9-17 tablets by it oprim 13:38: mouth in [place] (BACTRIM) 52 the Medical 400-80 mg morning. Branch per tablet vit 2023-0 Yes 1{tbl} Take 1 Univers C/E/Zn/cortez 9-17 tablet by ity of r/lutein/ze 13:38: mouth in [place] axan 52 the Medical (PRESERVISI morning Branc h ON AREDS-2 and 1 ORAL) tablet in the evening. acetaminoph 2023-0 Yes 650mg Take 2 Uni vers en 9-17 tablets by ity of (TYLENOL) 13:38: mouth [place] 325 mg 52 every 4 Medical tablet (four) Branch hours as needed for Temp > 38.5 C or Pain (scale 1-3). metoprolol 2023-0 Yes 25mg 25 mg, Unive rs tartrate 9-17 Oral, BID, ity o f (LOPRESSOR) 13:00: First dose [place] tablet 25 00 on Sun Medical mg 11/10/22 at Branch 0800, Until Discontinu ed, Routine memantine 2023-0 Yes 5mg 5 mg, Univers (NAMENDA) 9-17 Oral, BID, ity of tablet 5 mg 13:00: First dose [place] 00 on [facility] 11/10/22 at Branch 0800, Until Discontinu ed, Routine
managing member approving Restricted medication : DASH MATHEWS gabapentin 2023-0 Yes 300mg 300 mg, Uni vers (NEURONTIN) 9-17 Oral, TID, it y of capsule 300 13:00: First dose [place] mg 00 on [facility] 11/10/22 at Branch 0800, Until Discontinu ed, Routine metoprolol 2023-0 Yes 25mg 25 mg, Unive rs tartrate 9-17 Oral, BID, ity o f (LOPRESSOR) 13:00: First dose [place] tablet 25 00 on Sun Medical mg 11/10/22 at Branch 0800, Until Discontinu ed, Routine memantine 2023-0 Yes 5mg 5 mg, Univers (NAMENDA) 9-17 Oral, BID, ity of tablet 5 mg 13:00: First dose [place] 00 on [facility] 11/10/22 at Branch 0800, Until Discontinu ed, Routine
managing member approving Restricted medication : DASH MATHEWS gabapentin 2023-0 Yes 300mg 300 mg, Uni vers (NEURONTIN) 9-17 Oral, TID, it y of capsule 300 13:00: First dose [place] mg 00 on [facility] Medical 11/10/22 at Branch 0800, Until Discontinu ed, Routine meropenem 2022- No 1000mg 1,000 mg, Univers (MERREM) 11-10 IV ity of 1,000 mg in 13:00: 15:05 [facility], [place] NaCl 0.9% 00 :50 Q8H ABX, Medica l (NS) 100 mL 21 doses, Bra nch MINI-BAG First dose (after last modificati on) on [place] 11/10/22 at 0800, Last dose on 11/17/22 at 0000, Administer over 3 Hours, 100 mL
Rest ricted use approved by: After Hours (for ADC, CLC, LCC ONLY)
R irwin for Anti-Infec tive: Documented Infection& lt;br>Docu mented Infection Site: Skin / Soft Tissue
Duration of Therapy: 7 days vancomycin 2022- No 1250mg 1,250 mg, Univers 1,250 mg in 11-10 IV ity of NaCl 0.9% 11:00: 14:17 [place], [place] (NS) 250 mL 00 :34 Q12H ABX, Med ical VIAL-MATE 8 doses, Branch IV First dose piggyback (after last reorder) on 11/10/22 at 0600, Last dose on Fri11/13/22 at 1800, Administer over 90 Minutes, 250 mL
Reas on for Anti-Infec tive: Empiric Therapy for Suspected Infection< br>Empiric Therapy Site: Skin / Soft tissue
Duration of therapy: 72 hours hyoscyamine 0 Yes .25mg 0.25 mg, U nivers sulfate 11-10 Sublingual ity of (LEVSIN/SL) 04:03: , Q6HPRN, [place] sublingual 33 Starting Medic al tablet 0.25 on Sat Branch mg 11/09/22 at 2303, Until Discontinu ed, Routine, Abdominal pain or cramping hyoscyamine 2022-0 Yes .25mg 0.25 mg, U nivers sulfate 11-10 Sublingual ity of (LEVSIN/SL) 04:03: , Q6HPRN, [place] sublingual 33 Starting Medic al tablet 0.25 on Sat Branch mg 11/09/22 at 2303, Until Discontinu ed, Routine, Abdominal pain or cramping carbidopa-l 2023-0 Yes 1{tbl} 1 tablet, Univers evodopa 9-17 Oral, Q4H, ity of (SINEMET-25 04:03: First dose ) 00 on Sat Medical 25-100 mg 11/09/22 at [facility] tablet 1 2315, tablet Until Discontinu ed, Routine carbidopa-l 2023-0 Yes 1{tbl} 1 tablet, Univers evodopa 9-17 Oral, Q4H, ity of (SINEMET-25 04:03: First dose ) 00 on Sat Medical 25-100 mg 11/09/22 at [facility] tablet 1 2315, tablet Until Discontinu ed, Routine NaCl 0.9% 2023-0 Yes 1000mL at 75 Unive rs (NS) IV 9-17 mL/hr, IV ity of infusion 01:15: Infusion[place] 1,000 mL 00 CONTINUOUS Medic al , Starting Branch on 11/09/22 at 2014, Until Discontinu ed, Routine NaCl 0.9% 2023-0 2023- No 1000mL at 75 Univ ers (NS) IV 9-17 09-21 mL/hr, IV ity of infusion 01:15: 13:54 Infusion, [place] 1,000 mL 00 :55 CONTINUOUS Medic al , Starting Branch on 11/09/22 at 2014, Until [place] 11/14/22 at 0854, Routine ondansetron 2023-0 Yes 4mg 4 mg, Slow Univers (ZOFRAN 9-17 IV Push, ity of (PF)) 01:03: Q6HPRN, [place] injection 4 20 Starting Medi juan m mg on Sat Branch 11/09/22 at 2002, Until Discontinu ed, Routine, Nausea and Vomiting (N/V) ondansetron 2023-0 Yes 4mg 4 mg, Slow Univers (ZOFRAN 9-17 IV Push, ity of (PF)) 01:03: Q6HPRN, [place] injection 4 20 Starting Medi juan m mg on Sat Branch 11/09/22 at 2002, Until Discontinu ed, Routine, Nausea and Vomiting (N/V) morpHINE (2 2022- No 2mg 2 mg, Univ ers mg/mL) 11-10 Intravenou ity of injection 2 01:03: 01:02 s, Q6HPRN, [place] mg 12 :12 Starting Medical on Sat Branch 11/09/22 at 2002, Until 11/10/22 at 2001, Routine, Pain (scale 7-10) HYDROcodone 2022-0 2022- Yes 1{tbl} 1 tablet, Univers -acetaminop 11-10 Oral, ity of hen (NORCO 01:03: 01:02 Q6HPRN, [place] 5) 5-325 mg 04 :04 Starting Medi juan m tablet 1 on [facility] Branch tablet 11/09/22 at 2002, Until 11/11/22 at 2001, Routine, Pain (scale 4-6) acetaminoph 2022-0 Yes 650mg 650 mg, Un anita en 11-10 Oral, ity of (TYLENOL) 01:03: Q6HPRN, [place] tablet 650 01 Starting Medic al mg on [facility] Branch 11/09/22 at 2002, Until Discontinu ed, Routine, Pain (scale 1-3) acetaminoph 2022-0 Yes 650mg 650 mg, Un anita en 11-10 Oral, ity of (TYLENOL) 01:03: Q6HPRN, [place] tablet 650 01 Starting Medic al mg on [facility] Branch 11/09/22 at 2002, Until Discontinu ed, Routine, Pain (scale 1-3) NaCl 0.9% 0 2022- No 30mL/kg at 999 Un anita (NS) bolus 11-09 mL/hr, ity of infusion 23:45: 23:07 3,402 mL [place] 3,402 mL 00 :00 (30 mL/kg Medica l ?113.4 Branch kg), IV Infusion, ONCE, 1 dose, On 11/09/22 at 1845, SEFERINO iopamidol 2022-0 2022- No [id number] 90mL 90 mL, U nivers (ISOVUE 11-09 Intravenou ity o f 370-500 mL) 23:30: 23:45 s, ONCE, 1 [place] injection 00 :00 dose, On Medica l 90 mL [facility] Branch 11/09/22 at 1845, Routine metoprolol 2023-0 Yes 25mg Take 1 Unive rs succinate 9-16 tablet by ity o f XL 25 mg 24 23:05: mouth [place] tablet 44 the Medical morning Branch and 1 tablet in the evening. clopidogrel 2023-0 Yes 75mg Take 1 Univ ers 75 mg 9-16 tablet by ity of tablet 23:05: mouth in [place] [address] the Medical morning. Branch rosuvastati 2023-0 Yes 20mg Take 1 Univ ers n 20 mg 9-16 tablet by ity of tablet 23:05: mouth at [place] [address] bedtime. Medical Branch ezetimibe 3-0 Yes 10mg Take 1 Univer s 10 mg 9-16 tablet by ity of tablet 23:05: mouth in [place] [address] the Medical morning. Branch repaglinide 3-0 Yes 1mg Take 1 Univ ers 1 mg tablet 9-16 tablet by ity of 23:05: mouth in [place] [address] the Medical morning Branch and 1 tablet at noon and 1 tablet in the evening. Take before meals. metFORMIN 2023-0 Yes 1000mg Take 1 Univ ers 1,000 mg 24 9-16 tablet by ity of hr tablet 23:05: mouth in [place] [address] the Medical morning Branch and 1 tablet in the evening. Take with meals. aspirin 81 2023-0 Yes 81mg Take 1 Unive rs mg chewable 9-16 tablet by ity of tablet 23:05: mouth in [place] [address] the Medical morning. Branch tolterodine 3-0 Yes 4mg Take 1 Univ ers [place] 4 mg 24 9-16 capsule by ity of hr capsule 23:05: mouth in [place] [address] the Medical morning. Branch piperacilli 2023-0 2023- No 3.375g 3.375 g, Univers n-tazobacta 11-09 IV ity of m (ZOSYN) 23:00: 23:48 [place], [place] 3.375 g in 00 :00 ONCE, 1 Medica l NaCl 0.9% dose, On Branch (NS) 100 mL Sat MINI-BAG 11/09/22 at 1800, Administer over 30 Minutes, 100 mL
Reas on for Anti-Infec tive: Empiric Therapy for Suspected Infection< br>Empiric Therapy Site: Skin / Soft tissue
Duration of therapy: 72 hours vancomycin 2022- No 15mg/kg 1,500 mg Univers (VANCOCIN) 11-09 (rounded ity of 1,500 mg in 22:55: 01:41 from 1,701 [place] NaCl 0.9% 00 :00 mg = 15 Medical (NS) 500 mL mg/kg Branch VIAL-MATE ?113.4 IV kg), IV piggyback [place], ONCE, 1 dose, On 11/09/22 at 1800, Administer over 90 Minutes, 500 mL
Reas on for Anti-Infec tive: Empiric Therapy for Suspected Infection< br>Empiric Therapy Site: Skin / Soft tissue
Duration of therapy: 72 hours insulin 2022- No 50U inject 50 Univ ers degludec 11-09 Units ity of (TRESIBA 17:42: 00:00 under the [place] U-100 02 :00 skin. Medical INSULIN) Branch 100 unit/mL Soln irbesartan 2022- No 300mg Take 300 U nivers 300 mg 11-09 mg by ity of tablet 17:42: 00:00 mouth at [place] 02 :00 bedtime. Medical Branch insulin 2022- No 50U inject 50 Univ ers degludec 11-09 Units ity of (TRESIBA 17:42: 00:00 under the [place] U-100 02 :00 skin. Medical INSULIN) Branch 100 unit/mL Soln irbesartan 2022- No 300mg Take 300 U nivers 300 mg 11-09 mg by ity of tablet 17:42: 00:00 mouth at [place] 02 :00 bedtime. Medical Branch amoxicillin 2022- Yes 500mg Take 1 Uni vers -pot 9-12 tablet by ity of clavulanate 00:00: mouth in [place] 500 mg 00 the Medical (AUGMENTIN) morning Branc h 500-125 mg and 1 tablet tablet in the evening. amoxicillin 2022-0 2022- No 500mg Take 1 Un anita -pot 11-05-27 tablet by ity of clavulanate 00:00: 00:00 mouth in [place] 500 mg 00 :00 the Medical (AUGMENTIN) morning Branc h 500-125 mg and 1 tablet tablet in the evening. mirtazapine 2023-0 Yes 15mg Take 1 Univ ers 15 mg 7-24 tablet by ity of tablet 00:00: mouth at [place] [address] bedtime. Medical Branch mirtazapine 2023-0 Yes 15mg Take 1 Univ ers 15 mg 7-24 tablet by ity of tablet 00:00: mouth at [place] [address] bedtime. Medical Branch mirtazapine 2023-0 Yes 15mg Take 1 Univ ers 15 mg 7-24 tablet by ity of tablet 00:00: mouth at [place] [address] bedtime. Medical Branch mirtazapine 2023-0 Yes 15mg Take 1 Univ ers 15 mg 7-24 tablet by ity of tablet 00:00: mouth at [place] [address] bedtime. Medical Branch sulfamethox 2023-0 2023- No .5{tbl} Take 0.5 Univers azole-trime 7-24 09-16 tablets by i ty of thoprim 00:00: 00:00 mouth in [place] 400-80 mg 00 :00 the Medical per tablet morning. Bran h sulfamethox 3-0 2023- No .5{tbl} Take 0.5 Univers azole-trime 7-24 09-16 tablets by i ty of thoprim 00:00: 00:00 mouth in [place] 400-80 mg 00 :00 the Medical per tablet morning. Bran h potassium 3-0 Yes 10meq Take 1 Unive rs chloride 10 2-16 tablet by ity of mEq CR 00:00: mouth in [place] tablet 00 the Medical morning. Branch potassium 2023-0 2023- No 10meq Take 1 Univ ers chloride 10 2-16 -27 tablet by it y of mEq CR 00:00: 00:00 mouth in [place] tablet 00 :00 the Medical morning. Branch furosemide 2023-0 Yes 20mg Take 1 Unive rs 20 mg 2-11 tablet by ity of tablet 00:00: mouth in [place] 00 the Medical morning. Branch furosemide 2023-0 2023- No 20mg Take 1 Univ ers 20 mg 2-11 -27 tablet by ity of tablet 00:00: 00:00 mouth in [place] 00 :00 the Medical morning. Branch cefTRIAXone 2023-0 2023- No 1000mg 1,000 mg, Univers (ROCEPHIN) 03-28 IV ity of 1,000 mg in 20:30: 21:24 [place], [place] NaCl 0.9% 00 :00 ONCE, 1 Medical (NS) 50 mL dose, On Bran h MINI-BAG [place] 03/28/22 at 1430, Administer over 30 Minutes, 50 mL
R irwin for Anti-Infec tive: Documented Infection< br>Documen rachel Infection Site: Urine<br&g t;Duration of Therapy: Other (see Comments) NaCl 0.9% 2022- No 500mL at 999 Univ ers (NS) bolus 03-28- mL/hr, 500 it y of infusion 17:45: 19:06 mL, IV [place] 500 mL 00 :00 Infusion, Medical ONCE, 1 Branch dose, On [place] 03/28/22 at 1145, STAT cefpodoxime 3-0 Yes [id number] 200mg Take 1 Univers 200 mg 2-02 tablet by ity of tablet 00:00: mouth in [place] [address] the [facility] and 1 tablet in the evening. hyoscyamine 2023-[id number] 2 Univers sulfate 2-02 tablets ity of (LEVSIN/SL) 00:00: under the [place] 0.125 mg 00 tongue Medical sublingual every 6 Branch tablet (six) hours as needed (Abdominal pain or cramping). cefpodoxime 3-0 Yes [id number] 200mg Take 1 Univers 200 mg 2-02 tablet by ity of tablet 00:00: mouth in [place] [address] the [facility] and 1 tablet in the evening. hyoscyamine 2023-[id number] 2 Univers sulfate 2-02 tablets ity of (LEVSIN/SL) 00:00: under the [place] 0.125 mg 00 tongue Medical sublingual every 6 Branch tablet (six) hours as needed (Abdominal pain or cramping). cefpodoxime 2023-0 Yes [id number] 200mg Take 1 Univers 200 mg 2-02 tablet by ity of tablet 00:00: mouth in [place] [address] the [facility] and 1 tablet in the evening. hyoscyamine 2023-[id number] 2 Univers sulfate 2-02 tablets ity of (LEVSIN/SL) 00:00: under the [place] 0.125 mg 00 tongue Medical sublingual every 6 Branch tablet (six) hours as needed (Abdominal pain or cramping). cefpodoxime 2023-0 Yes [id number] 200mg Take 1 Univers 200 mg 2-02 tablet by ity of tablet 00:00: mouth in [place] 00 the Medical morning Branch and 1 tablet in the evening. hyoscyamine 2023-[id number] 2 Univers sulfate 2-02 tablets ity of (LEVSIN/SL) 00:00: under the [place] 0.125 mg 00 tongue Medical sublingual every 6 Branch tablet (six) hours as needed (Abdominal pain or cramping). cefpodoxime 2023-0 Yes [id number] 200mg Take 1 Univers 200 mg 2-02 tablet by ity of tablet 00:00: mouth in [place] [address] the [facility] morning [place] and 1 tablet in the evening. hyoscyamine 2023-[id number] 2 Univers sulfate 2-02 tablets ity of (LEVSIN/SL) 00:00: under the [place] 0.125 mg 00 tongue Medical sublingual every 6 Branch tablet (six) hours as needed (Abdominal pain or cramping). cefpodoxime 2023-0 Yes [id number] 200mg Take 1 Univers 200 mg 2-02 tablet by ity of tablet 00:00: mouth in [place] [address] the [facility] morning [place] and 1 tablet in the evening. hyoscyamine 2023-[id number] 2 Univers sulfate 2-02 tablets ity of (LEVSIN/SL) 00:00: under the [place] 0.125 mg 00 tongue Medical sublingual every 6 Branch tablet (six) hours as needed (Abdominal pain or cramping). cefpodoxime 2023-0 Yes [id number] 200mg Take 1 Univers 200 mg 2-02 tablet by ity of tablet 00:00: mouth in [place] [address] the [facility] morning [place] and 1 tablet in the evening. hyoscyamine 2023-[id number] 2 Univers sulfate 2-02 tablets ity of (LEVSIN/SL) 00:00: under the [place] 0.125 mg 00 tongue Medical sublingual every 6 Branch tablet (six) hours as needed (Abdominal pain or cramping). cefpodoxime 2023-0 Yes [id number] 200mg Take 1 Univers 200 mg 2-02 tablet by ity of tablet 00:00: mouth in [place] 00 the Medical morning Branch and 1 tablet in the evening. hyoscyamine 3-[id number] 2 Univers sulfate 2-02 tablets ity of (LEVSIN/SL) 00:00: under the [place] 0.125 mg 00 tongue Medical sublingual every 6 Branch tablet (six) hours as needed (Abdominal pain or cramping). cefpodoxime 3-0 Yes [id number] 200mg Take 1 Univers 200 mg 2-02 tablet by ity of tablet 00:00: mouth in [place] 00 the Medical morning Branch and 1 tablet in the evening. hyoscyamine 3-[id number] 2 Univers sulfate 2-02 tablets ity of (LEVSIN/SL) 00:00: under the [place] 0.125 mg 00 tongue Medical sublingual every 6 Branch tablet (six) hours as needed (Abdominal pain or cramping). hyoscyamine 3-[id number] 2 Univers sulfate 2-02 tablets ity of (LEVSIN/SL) 00:00: under the [place] 0.125 mg 00 tongue Medical sublingual every 6 Branch tablet (six) hours as needed (Abdominal pain or cramping). hyoscyamine 3-[id number] 2 Univers sulfate 2-02 tablets ity of (LEVSIN/SL) 00:00: under the [place] 0.125 mg 00 tongue Medical sublingual every 6 Branch tablet (six) hours as needed (Abdominal pain or cramping). hyoscyamine 2023-[id number] 2 Univers sulfate 2-02 tablets ity of (LEVSIN/SL) 00:00: under the [place] 0.125 mg 00 tongue Medical sublingual every 6 Branch tablet (six) hours as needed (Abdominal pain or cramping). hyoscyamine 2023-[id number] 2 Univers sulfate 2-02 tablets ity of (LEVSIN/SL) 00:00: under the [place] 0.125 mg 00 tongue Medical sublingual every 6 Branch tablet (six) hours as needed (Abdominal pain or cramping). hyoscyamine 2023-[id number] 2 Univers sulfate 2-02 tablets ity of (LEVSIN/SL) 00:00: under the [place] 0.125 mg 00 tongue Medical sublingual every 6 Branch tablet (six) hours as needed (Abdominal pain or cramping). cefpodoxime 3-0 Yes [id number] 200mg Take 1 Univers 200 mg 2-02 tablet by ity of tablet 00:00: mouth in [place] 00 the Medical morning Branch and 1 tablet in the evening. hyoscyamine 2023-[id number] 2 Univers sulfate 2-02 tablets ity of (LEVSIN/SL) 00:00: under the [place] 0.125 mg 00 tongue Medical sublingual every 6 Branch tablet (six) hours as needed (Abdominal pain or cramping). cefpodoxime 2022-0 2023- No [id number] 200mg Take 1 Univers 200 mg 2-04 04- tablet by ity of tablet 00:00: 00:00 mouth in [place] 00 :00 the Medical morning Branch and 1 tablet in the evening. traMADoL 50 3-0 Yes 50mg Take 1 Univ ers mg tablet 2-01 tablet by ity o f 00:00: mouth [place] 00 every 8 Medical (eight) Branch hours as needed for Pain. traMADoL 50 3-0 Yes 50mg Take 1 Univ ers mg tablet 2-01 tablet by ity o f 00:00: mouth [place] 00 every 8 Medical (eight) Branch hours as needed for Pain. traMADoL 50 3-0 Yes 50mg Take 1 Univ ers mg tablet 2-01 tablet by ity o f 00:00: mouth [place] 00 every 8 Medical (eight) Branch hours as needed for Pain. traMADoL 50 3-0 Yes 50mg Take 1 Univ ers mg tablet 2-01 tablet by ity o f 00:00: mouth [place] 00 every 8 Medical (eight) Branch hours as needed for Pain. irbesartan 2023-0 Yes 75mg Take 1 Unive rs 75 mg - tablet by ity of tablet 00:00: mouth in [place] 00 the Medical morning. Branch irbesartan 2023-0 2023- No 75mg Take 1 Univ ers 75 mg 03-06 tablet by ity of tablet 00:00: 00:00 mouth in [place] 00 :00 the [facility] morning. Branch gabapentin 2023-0 Yes 300mg Take 1 Univ ers 300 mg 1-09 capsule by ity of capsule 00:00: mouth in [place] 00 the Medical morning Branch and 1 capsule at noon and 1 capsule in the evening. gabapentin 2023-0 Yes 300mg Take 1 Univ ers 300 mg 1-09 capsule by ity of capsule 00:00: mouth in [place] [address] the Medical morning Branch and 1 capsule at noon and 1 capsule in the evening. gabapentin 2023-0 Yes 300mg Take 1 Univ ers 300 mg 1-09 capsule by ity of capsule 00:00: mouth in [place] [address] the Medical morning Branch and 1 capsule at noon and 1 capsule in the evening. gabapentin 2023-0 Yes 300mg Take 1 Univ ers 300 mg 1-09 capsule by ity of capsule 00:00: mouth in [place] [address] the [facility] [facility] morning Branch and 1 capsule at noon and 1 capsule in the evening. memantine 2023-0 Yes 5mg Take 1 Univer s (NAMENDA) 5 1-06 tablet by ity [facility] mg tablet 00:00: [facility] morning Branch and 1 tablet in the evening. memantine 2023-0 Yes 5mg Take 1 Univer s (NAMENDA) 5 1-06 tablet by ity of mg tablet 00:00: mouth [facility] the [facility] Branch and 1 tablet in the evening. memantine 2023-0 Yes 5mg Take 1 Univer s (NAMENDA) 5 1-06 tablet by ity of mg tablet 00:00: mouth in [facility] s 00 the [facility] Branch and 1 tablet in the evening. memantine 2023-0 Yes 5mg Take 1 Univer s (NAMENDA) 5 1-06 tablet by ity of mg tablet 00:00: mouth in [facility] 00 the [facility] morning Branch and 1 tablet in the evening. acetaminoph 2021-02- No 1000mg 1,000 mg, Univers en 04-14 Oral, ity of (TYLENOL) 22:15: 22:18 ONCE, 1 [place] tablet 00 :00 dose, On Medical 1,000 mg Mon Branch 02/11/22 at 1615, Routine sennosides- 2021-02 Yes 1{tbl} Take 1 Un anita docusate 2-14 tablet by ity of sodium 00:00: mouth in [place] 8.6-50 mg 00 the Medical per tablet morning Branch and 1 tablet in the evening. sennosides- 2021-02- No 1{tbl} Take 1 U nivers docusate 2-14 09-27 tablet by ity o f sodium 00:00: 00:00 mouth in [place] 8.6-50 mg 00 :00 the Medical per tablet morning Branch and 1 tablet in the evening. carbidopa-l 2021-02 Yes 1{tbl} Take 1 Un anita evodopa 2-10 tablet by ity of 25-100 mg 00:00: mouth 5 [place] tablet 00 (five) Medical times [place] daily. carbidopa-l 2021-02- No 1{tbl} Take 1 U nivers evodopa 2-10 -27 tablet by ity of 25-100 mg 00:00: 00:00 [place] 5 [place] tablet 00 :00 (five) Medical times [place] daily. finasteride 2021-02 Yes 5mg Take 1 Univ ers 5 mg tablet 2-09 tablet by ity of 00:00: mouth at [place] 00 bedtime. Medical Branch multivitami 2021-02 Yes 1{tbl} Take 1 Un anita n with 2-09 tablet by ity of minerals 00:00: mouth in [place] (MULTIVITAM 00 the Medical IN & morning. Branch MINERAL FORMULA ORAL) semaglutide 2021-02 Yes .5mg inject 0.5 Univers (OZEMPIC) 2-09 mg under ity of 0.25 mg or 00:00: the skin [place] 0.5 mg(2 00 weekly. On Medic al mg/1.5 mL) Friday Branch PnIj finasteride 2021-02 Yes 5mg Take 1 Univ ers 5 mg tablet 2-09 tablet by ity of 00:00: mouth at [place] 00 bedtime. Medical Branch multivitami 2021-02 Yes 1{tbl} Take 1 Un anita n with 2-09 tablet by ity of minerals 00:00: mouth in [place] (MULTIVITAM 00 the Medical IN & morning. Branch MINERAL FORMULA ORAL) finasteride 2021-02 Yes 5mg Take 1 Univ ers 5 mg tablet 2-09 tablet by ity of 00:00: mouth at [place] 00 bedtime. Medical Branch multivitami 2021-02 Yes 1{tbl} Take 1 Un anita n with 2-09 tablet by ity of minerals 00:00: mouth in [place] (MULTIVITAM 00 the Medical IN & morning. Branch MINERAL FORMULA ORAL) finasteride 2021-02 Yes 5mg Take 1 Univ ers 5 mg tablet 2-09 tablet by ity of 00:00: mouth at [place] 00 bedtime. Medical Branch multivitami 2021-02 Yes 1{tbl} Take 1 Un anita n with 2-09 tablet by ity of minerals 00:00: mouth in [place] (MULTIVITAM 00 the Medical IN & morning. Branch MINERAL FORMULA ORAL) semaglutide 2021-02- No .5mg inject 0.5 Univers (OZEMPIC) 2- 09-27 mg under ity o f 0.25 mg or 00:00: 00:00 the skin [place] 0.5 mg(2 00 :00 weekly. On Medic al mg/1.5 mL) Friday Branch PnIj calcium 2021-02 Yes 750mg Take 750 Unive rs carbonate 2-08 mg by ity of 200 mg 00:00: mouth in [place] calcium 00 the Medical (500 mg) morning. Branch chewable tablet docusate 2021-02 Yes 100mg Take 1 Univer s 100 mg 2-08 capsule by ity of capsule 00:00: mouth in [place] 00 the Medical morning. Branch escitalopra 2021-02 Yes 10mg Take 1 Univ ers m oxalate 2-08 tablet by ity o f 10 mg 00:00: mouth in [place] tablet 00 the Medical morning. Branch glipiZIDE 5 2021-02 Yes 5mg Take 1 Univ ers mg tablet 2-08 tablet by ity o f 00:00: mouth in [place] 00 the Medical morning. Branch metoprolol 2021-02 Yes 25mg Take 1 Unive rs tartrate 25 2-08 tablet by ity of mg tablet 00:00: [facility] morning Branch and 1 tablet in the evening. insulin 2021-02 Yes 20U inject 20 Unive rs degludec 2-08 Units ity of 200 unit/mL 00:00: under the [place] (3 mL) InPn 00 skin at Medic al bedtime. Branch calcium 2021-02 Yes 750mg Take 750 Unive rs carbonate 2-08 mg by ity of 200 mg 00:00: mouth in [place] calcium 00 the Medical (500 mg) morning. Branch chewable tablet docusate 2021-02 Yes 100mg Take 1 Univer s 100 mg 2-08 capsule by ity of capsule 00:00: mouth in [place] 00 the Medical morning. Branch escitalopra 2021-02 Yes 10mg Take 1 Univ ers m oxalate 2-08 tablet by ity o f 10 mg 00:00: mouth in [place] tablet 00 the Medical morning. Branch metoprolol 2021-02 Yes 25mg Take 1 Unive rs tartrate 25 2-08 tablet by ity of mg tablet 00:00: mouth [place] the Medical morning Branch and 1 tablet in the evening. calcium 2021-02 Yes 750mg Take 750 Unive rs carbonate 2-08 mg by ity of 200 mg 00:00: mouth in [place] calcium 00 the Medical (500 mg) morning. Branch chewable tablet docusate 2021-02 Yes 100mg Take 1 Univer s 100 mg 2-08 capsule by ity of capsule 00:00: mouth in [place] 00 the Medical morning. Branch escitalopra 2021-02 Yes 10mg Take 1 Univ ers m oxalate 2-08 tablet by ity o f 10 mg 00:00: mouth in [place] tablet 00 the Medical morning. Branch metoprolol 2021-02 Yes 25mg Take 1 Unive rs tartrate 25 2-08 tablet by ity of mg tablet 00:00: mouth in [facility] the Medical morning Branch and 1 tablet in the evening. calcium 2021-02 Yes 750mg Take 750 Unive rs carbonate 2-08 mg by ity of 200 mg 00:00: mouth in [place] calcium 00 the Medical (500 mg) morning. Branch chewable tablet docusate 2021-02 Yes 100mg Take 1 Univer s 100 mg 2-08 capsule by ity of capsule 00:00: mouth in [place] 00 the Medical morning. Branch escitalopra 2021-02 Yes 10mg Take 1 Univ ers m oxalate 2-08 tablet by ity o f 10 mg 00:00: mouth in [place] tablet 00 the Medical morning. Branch metoprolol 2021-02 Yes 25mg Take 1 Unive rs tartrate 25 -08 tablet by ity of mg tablet 00:00: mouth [facility] the Medical morning Branch and 1 tablet in the evening. glipiZIDE 5 2021-02- No 5mg Take 1 Uni vers mg tablet 04-03 tablet by ity of 00:00: 00:00 mouth in [place] 00 :00 the Medical morning. Branch insulin 2021-02- No 20U inject 20 Univ ers degludec 04-03 Units ity of 200 unit/mL 00:00: 00:00 under the [place] (3 mL) InPn 00 :00 skin at Medic al bedtime. Branch Amoxicillin Amoxicillin 2021- No 1{table BID Amoxicilli -Pot -Pot 09-13 t} n-Pot Clavulanate Clavulanate 00:00: 00:00 Clavulanat 875-125 MG 875-125 MG 00 :00 e 875-125 MG Proscar 5 Proscar 5 2021-2022- No 1{table QD Proscar 5 MG MG 08-30 t} MG 00:00: 00:00 00 :00 Proscar 5 Proscar 5 2021-2022- No 1{table QD Proscar 5 MG MG 08-30 t} MG 00:00: 00:00 00 :00 Proscar 5 Proscar 5 2021-0 3- No 1{table QD Proscar 5 MG MG 08-30 t} MG 00:00: 00:00 00 :00 Proscar 5 Proscar 5 2021-0 3- No 1{table QD Proscar 5 MG MG 08-30 t} MG 00:00: 00:00 00 :00 Proscar 5 Proscar 5 2021-0 2023- No 1{table QD Proscar 5 MG MG 08-30 t} MG 00:00: 00:00 00 :00 Proscar 5 Proscar 5 2021-0 2022- No 1{table QD Proscar 5 MG MG 08-30 t} MG 00:00: 00:00 00 :00 Proscar 5 Proscar 5 2021-0 2022- No 1{table QD Proscar 5 MG [...] [facility] (Tresiba 20:31: subcutaneo Med ical FlexTouch [address] [place] [address] U-100) 100 daily. unit/mL (3 mL) In tolterodine 2020-02 Yes 4mg QD Take [address] (DETROL [place]) 2-09 by mouth [place] 4 MG 24 hr 20:31: daily. Medic al capsule 02 [place] ibuprofen 2020-02 Yes 200mg Take 200 [facility] [...] 10 MG 20:31: daily. Medical tablet 02 Center solifenacin 2020-02 Yes 10mg QD Take [address] [facility] (VESIcare) 2-09 by mouth [facility] 10 MG 20:31: daily. Medical tablet 02 [place] insulin 2020-02 Yes 50U QD Inject 50 [facility] degludec 2-09 Units [facility] (Tresiba 20:31: subcutaneo Med ical FlexTouch [address] [place] [address] U-100) 100 daily. unit/mL (3 mL) In tolterodine 2020-02 Yes 4mg QD Take [address] (DETROL LA) 2-09 by mouth Luke s 4 MG 24 hr 20:31: daily. Medic al capsule 02 [place] ibuprofen 2020-02 Yes 200mg Take 200 [facility] [...] 10 MG 20:31: daily. Medical tablet 02 [place] insulin 2020-02 Yes 50U QD Inject 50 [facility] degludec 2-09 Units [facility] (Tresiba 20:31: subcutaneo Med ical [facility] [address] [place] [address] U100) 100 daily. unit/mL (3 mL) InPn tolterodine 2020-02 Yes 4mg QD Take [address] (DETROL LA) 2-09 by mouth Luke s 4 MG 24 hr 20:31: daily. Medic al capsule 02 [place] ibuprofen 2020-02 Yes 200mg Take 200 [facility] [...] 10 MG 20:31: daily. Medical tablet 02 [place] insulin 2020-02 Yes 50U QD Inject 50 [facility] degludec 2-09 Units [facility] (Tresiba 20:31: subcutaneo Med ical [employer] [address] [place] [address] U-100) 100 daily. unit/mL (3 mL) In tolterodine 2020-02 Yes 4mg QD Take [address] (DETROL LA) 2-09 by mouth Luke s 4 MG 24 hr 20:31: daily. Medic al capsule 02 [place] ibuprofen 2020-02 Yes 200mg Take 200 [facility] [...] 10 MG 20:31: daily. Medical tablet 02 [place] insulin 2020-02 Yes 50U QD Inject 50 [facility] degludec 2-09 Units [facility] (Tresiba 20:31: subcutaneo Med ical FlexTouch 02 [facility] U100) 100 daily. unit/mL (3 mL) InPn tolterodine 2020-02 Yes 4mg QD Take [address] (DETROL LA) 2-09 by mouth [place] s 4 MG 24 hr 20:31: daily. Medic al capsule 02 [place] ibuprofen 2020-02 Yes 200mg Take 200 [facility] [...] 10 MG 20:31: daily. Medical tablet 02 [place] insulin 2020-02 Yes 50U QD Inject 50 [facility] degludec 2-09 Units [facility] (Tresiba 20:31: subcutaneo Med ical FlexTouch 02 [facility] U-100) 100 daily. unit/mL (3 mL) In tolterodine 2020-02 Yes 4mg QD Take [address] (DETROL LA) 2-09 by mouth [place] s 4 MG 24 hr 20:31: daily. Medic al capsule 02 [place] ibuprofen 2020-02 Yes 200mg Take 200 [facility] [...] 10 MG 20:31: daily. Medical tablet 02 [place] insulin 2020-02 Yes 50U QD Inject 50 [facility] degludec 2-09 Units [facility] (Tresiba 20:31: subcutaneo Med ical FlexTouch 02 [facility] U-100) 100 daily. unit/mL (3 mL) InPn tolterodine 2020-02 Yes 4mg QD Take [address] (DETROL LA) 2-09 by mouth [place] s 4 MG 24 hr 20:31: daily. Medic al capsule 02 [place] ibuprofen 2020-02 Yes 200mg Take [address] [facility] (ADVIL,MOTR 2-09 mg by [facility] IN) 200 MG 20:31: mouth Medica l tablet 02 every 6 Center (six) hours as needed for Pain. metoprolol 2020-02 Yes 50mg QD Take [address] succinate 2-09 by mouth [facility] (TOPROL-XL) 20:31: daily. Medi juan m 50 MG 24 hr 02 Center tablet irbesartan 2020-02 Yes 300mg QD Take [address] (AVAPRO) 2-08 mg by [facility] 300 MG 22:38: mouth Medical tablet 17 nightly. [place] rosuvastati 2020-02 Yes 20mg QD Take [address] [facility] n (CRESTOR) 2-08 by mouth Luke s 20 MG 22:38: daily. Medical tablet 17 [place] metFORMIN 2020-02 Yes 1000mg Take 1,[address] [facility] (GLUCOPHAGE 2-08 mg by [facility] ) 1000 MG 22:38: mouth 2 Medic al tablet 17 (two) Center times daily with breakfast and dinner. ezetimibe 2020-02 Yes 10mg QD Take [address] (ZETIA) 10 2-08 by mouth [facility] mg tablet 22:38: daily. Medica l 17 [place] clopidogrel 2020-02 Yes 75mg QD Take [address] [facility] (PLAVIX) 75 2-08 by mouth Luke s mg tablet 22:38: daily. [address] repaglinide 2020-02 Yes 1mg QD Take [address] (PRANDIN) 1 2-08 by mouth Luke s MG tablet 22:38: daily. [address] aspirin 81 2020-02 Yes 81mg QD Take [address] MG EC 2-08 by mouth [facility] tablet 22:38: daily. [address] irbesartan 2020-02 Yes 300mg QD Take [address] (AVAPRO) 2-08 mg by [facility] 300 MG 22:38: mouth Medical tablet 17 nightly. [place] rosuvastati 2020-02 Yes 20mg QD Take [address] [facility] n (CRESTOR) 2-08 by mouth Luke s 20 MG 22:38: daily. Medical [address] metFORMIN 2020-02 Yes 1000mg Take 1,[address] [address] (GLUCOPHAGE 2-08 mg by [facility] ) 1000 MG 22:38: mouth 2 Medic al tablet 17 (two) Center times daily with breakfast and dinner. ezetimibe 2020-02 Yes 10mg QD Take [address] (ZETIA) 10 2-08 by mouth [facility]ukes mg tablet 22:38: daily. [address] clopidogrel 2020-02 Yes 75mg QD Take [address] [facility] (PLAVIX) 75 2-08 by mouth Luke s mg tablet 22:38: daily. [address] repaglinide 2020-02 Yes 1mg QD Take [address] (PRANDIN) 1 2-08 by mouth Luke s MG tablet 22:38: daily. [address] aspirin 81 2020-02 Yes 81mg QD Take [address] MG EC 2-08 by mouth [facility]ukes tablet 22:38: daily. [address] irbesartan 2020-02 Yes 300mg QD Take [address] (AVAPRO) 2-08 mg by [facility] 300 MG 22:38: mouth Medical tablet 17 nightly. [place] rosuvastati 2020-02 Yes 20mg QD Take [address] [facility] n (CRESTOR) 2-08 by mouth Luke s 20 MG 22:38: daily. Medical tablet [address] [place] [address] metFORMIN 2020-02 Yes 1000mg Take 1,[address] (GLUCOPHAGE 2-08 mg by [facility]ukes ) 1000 MG 22:38: mouth 2 Medic al tablet 17 (two) Center times daily with breakfast and dinner. ezetimibe 2020-02 Yes 10mg QD Take [address] (ZETIA) 10 2-08 by mouth [facility] mg tablet 22:38: daily. [address] clopidogrel 2020-02 Yes 75mg QD Take [address] [facility] [address] (PLAVIX) 75 2-08 by mouth Luke s mg tablet 22:38: daily. [address] repaglinide 2020-02 Yes 1mg QD Take [address] (PRANDIN) 1 2-08 by mouth Luke s MG tablet 22:38: daily. [address] aspirin 81 2020-02 Yes 81mg QD Take [address] MG EC 2-08 by mouth [facility] tablet 22:38: daily. [address] irbesartan 2020-02 Yes 300mg QD Take [address] (AVAPRO) 2-08 mg by [facility] 300 MG 22:38: mouth Medical tablet 17 nightly. [place] rosuvastati 2020-02 Yes 20mg QD Take [address] n (CRESTOR) 2-08 by mouth Luke s 20 MG 22:38: daily. [address] metFORMIN 2020-02 Yes 1000mg Take 1,[address] (GLUCOPHAGE 2-08 mg by [facility] ) 1000 MG 22:38: mouth 2 Medic al tablet 17 (two) Center times daily with breakfast and dinner. ezetimibe 2020-02 Yes 10mg QD Take [address] (ZETIA) 10 2-08 by mouth [facility] mg tablet 22:38: daily. [address] clopidogrel 2020-02 Yes 75mg QD Take [address] [facility] [address] (PLAVIX) 75 2-08 by mouth [place] s mg tablet 22:38: daily. [address] repaglinide 2020-02 Yes 1mg QD Take [address] (PRANDIN) 1 2-08 by mouth Luke s MG tablet 22:38: daily. [address] aspirin 81 2020-02 Yes 81mg QD Take [address] MG EC 2-08 by mouth [facility] tablet 22:38: daily. [address] irbesartan 2020-02 Yes 300mg QD Take [address] (AVAPRO) 2-08 mg by [facility] 300 MG 22:38: mouth Medical tablet 17 nightly. [place] rosuvastati 2020-02 Yes 20mg QD Take [address] [facility] n (CRESTOR) 2-08 by mouth Luke s 20 MG 22:38: daily. Medical tablet [address] [place] [address] metFORMIN 2020-02 Yes 1000mg Take 1,[address] (GLUCOPHAGE 2-08 mg by [facility] ) 1000 MG 22:38: mouth 2 Medic al tablet 17 (two) Center times daily with breakfast and dinner. ezetimibe 2020-02 Yes 10mg QD Take [address] (ZETIA) 10 2-08 by mouth [facility]ukes mg tablet 22:38: daily. [address] clopidogrel 2020-02 Yes 75mg QD Take [address] [facility] [address] (PLAVIX) 75 2-08 by mouth Luke s mg tablet 22:38: daily. [address] repaglinide 2020-02 Yes 1mg QD Take [address] (PRANDIN) 1 2-08 by mouth Luke s MG tablet 22:38: daily. [address] aspirin 81 2020-02 Yes 81mg QD Take [address] MG EC 2-08 by mouth [facility] tablet 22:38: daily. [address] irbesartan 2020-02 Yes 300mg QD Take [address] (AVAPRO) 2-08 mg by [facility] 300 MG 22:38: mouth Medical tablet 17 nightly. [place] rosuvastati 2020-02 Yes 20mg QD Take [address] [facility] n (CRESTOR) 2-08 by mouth Luke s 20 MG 22:38: daily. Medical tablet [address] [place] [address] metFORMIN 2020-02 Yes 1000mg Take 1,[address] (GLUCOPHAGE 2-08 mg by [facility] ) 1000 MG 22:38: mouth 2 Medic al tablet 17 (two) Center times daily with breakfast and dinner. ezetimibe 2020-02 Yes 10mg QD Take [address] (ZETIA) 10 2-08 by mouth [facility]ukes mg tablet 22:38: daily. [address] clopidogrel 2020-02 Yes 75mg QD Take [address] (PLAVIX) 75 2-08 by mouth Luke s mg tablet 22:38: daily. [address] repaglinide 2020-02 Yes 1mg QD Take [address] (PRANDIN) 1 2-08 by mouth Luke s MG tablet 22:38: daily. [address] aspirin 81 2020-02 Yes 81mg QD Take [address] MG EC 2-08 by mouth [facility] tablet 22:38: daily. [address] irbesartan 2020-02 Yes 300mg QD Take [address] (AVAPRO) 2-08 mg by [facility] 300 MG 22:38: mouth Medical tablet 17 nightly. [place] rosuvastati 2020-02 Yes 20mg QD Take [address] [facility] n (CRESTOR) 2-08 by mouth Luke s 20 MG 22:38: daily. [address] metFORMIN 2020-02 Yes 1000mg Take 1,[address] (GLUCOPHAGE 2-08 mg by [facility] ) 1000 MG 22:38: mouth 2 Medic al tablet 17 (two) Center times daily with breakfast and dinner. ezetimibe 2020-02 Yes 10mg QD Take [address] (ZETIA) 10 2-08 by mouth [facility]ukes mg tablet 22:38: daily. [address] clopidogrel 2020-02 Yes 75mg QD Take [address] [facility] (PLAVIX) 75 2-08 by mouth Luke s mg tablet 22:38: daily. [address] repaglinide 2020-02 Yes 1mg QD Take [address] (PRANDIN) 1 2-08 by mouth Luke s MG tablet 22:38: daily. [address] aspirin 81 2020-02 Yes 81mg QD Take [address] MG EC 2-08 by mouth [facility] tablet 22:38: daily. [address] VESIcare 10 VESIcare 10 2020-02- No 1{table QD VESIcare MG MG 03-28 t} 10 MG 00:00: 00:00 00 :00 VESIcare 10 VESIcare 10 2020-02- No 1{table QD VESIcare MG MG 03-28 t} 10 MG 00:00: 00:00 00 :00 solifenacin 2020-02- No 10mg QD Take [address] [facility] (Vesicare) 2-02 12-08 by mouth Luke s 10 MG 00:00: 00:00 daily . Medical tablet 00 :00 [place] solifenacin 2020-02- No 10mg QD Take [address] [facility] (Vesicare) 03-28-08 by mouth Luke s 10 MG 00:00: 00:00 daily . Medical tablet 00 :00 [place] solifenacin 2020-02- No 10mg QD Take [address] [facility] (Vesicare) 03-28- by mouth Luke s 10 MG 00:00: 00:00 daily . Medical tablet 00 :00 [place] solifenacin 2020-02- No 10mg QD Take [address] [facility] (Vesicare) 03-28- by mouth Luke s 10 MG 00:00: 00:00 daily . Medical tablet 00 :00 [place] solifenacin 2020-02- No 10mg QD Take [address] [facility] (Vesicare) 03-28- by mouth [facility] s 10 MG 00:00: 00:00 daily . Medical tablet 00 :00 [place] solifenacin 2020-02- No 10mg QD Take [address] [facility] (Vesicare) 03-28- by mouth Luke s 10 MG 00:00: 00:00 daily . Medical tablet 00 :00 [place] metoprolol 2020-02- No 50mg Q.5D Take 50 [...] Take [address] [facility] (LOPRESSOR) 1-24 11-24 by mouth 2 L ukes 50 MG [...] :00 times Center daily. Missing or 2020-02 [address] [facility] [address] [facility] Non-Formula 03-19 [...] daily . Medi juan m capsule 00 Center trospium ER 2020-02 Yes 60mg QD Take [address] [facility] (SANCTURA) 1-20 by mouth [facility] 60 mg Cp24 00:00: daily . Medi juan m capsule 00 [place] trospium ER 2020-02 Yes 60mg QD Take [address] [facility] (SANCTURA) 1-20 by mouth [facility] 60 mg Cp24 00:00: daily . [facility]D Take [address] [facility] (SANCTURA) 1-20 by mouth [facility] 60 mg Cp24 00:00: daily . [facility]an [facility] Yes 60[facility] QD Take [address] [facility] (SANCTURA) 1-20 by mouth [facility] 60 mg Cp24 00:00: daily . Medi juan m capsule [address] [place], [place] [address]spium ER 2020-02 Yes 60mg QD Take [address] [facility] (SANCTURA) 1-20 by mouth [facility] 60 mg Cp24 00:00: daily . Medi juan m capsule [address] [place], [place] [address]spium ER 2020-02 Yes 60mg QD Take [address] [facility] (SANCTURA) 1-20 by mouth [facility] 60 mg Cp24 00:00: daily . Medi juan m capsule [address] [place] [address] 2020-02 Yes 1g QD Take [address] [facility] gram Cap 1-12 by mouth [facility] 00:00: daily . [address] 2020-02 Yes 1g QD Take [address] [facility] gram Cap 1-12 by mouth [facility] 00:00: daily . [address] 2020-02 Yes 1g QD Take [address] [facility] gram Cap 1-12 by mouth [facility] 00:00: daily . [address] 2020-02 Yes 1g QD Take [address] [facility] gram Cap 1-12 by mouth [facility] 00:00: daily . [place] [address] 2020-02 Yes 1g QD Take [address] [facility] gram Cap 1-12 by mouth [facility] 00:00: daily . [place] [address] 2020-02 Yes 1g QD Take [address] [facility] gram Cap 1-12 by mouth [facility] 00:00: daily . [address] 2020-02 Yes 1g QD Take [address] [facility] gram Cap 1-12 by mouth [facility] 00:00: daily . [place] [id number] [place] carbidopa-l 2020-02 Yes 1{tbl} Q.[id number] Take [address] [facility] evodopa 0-27 [id number] tablet by L es (SINEMET) 00:00: 3D mouth 3 Medic al 25-100 mg 00 (three) Center per tablet times daily . Myrbetriq 2020-02 Yes 50mg QD Take [address] 50 mg Tb24 0-27 by mouth [facility] ER tablet 00:00: daily . Medic al 00 [place] Myrbetriq 2020-02 Yes 50mg QD Take [address] 50 mg Tb24 0-27 by mouth [facility] ER tablet 00:00: daily . Medic al 00 [place] carbidopa-l 2020-02 Yes 1{tbl} Q.[id number] Take [address] [facility] evodopa 0-27 [id number] tablet by L nagi (SINEMET) 00:00: 3D mouth 3 Medic al 25-100 mg 00 (three) Center per tablet times daily . Myrbetriq 2020-02 Yes 50mg QD Take [address] 50 mg Tb24 0-27 by mouth [facility] ER tablet 00:00: daily . Medic al 00 [place] carbidopa-l 2020-02 Yes 1{tbl} Q.[id number] Take [address] [facility] evodopa 0-27 [id number] tablet by Chuckie lazar (SINEMET) 00:00: 3D mouth 3 Medic al 25-100 mg 00 (three) Center per tablet times daily . Myrbetriq 2020-02 Yes 50mg QD Take [address] 50 mg Tb24 0-27 by mouth [facility] ER tablet 00:00: daily . Medic al 00 [place] carbidopa-l 2020-02 Yes 1{tbl} Q.[id number] Take [address] [facility] evodopa 0-27 [id number] tablet by L es (SINEMET) 00:00: 3D mouth 3 Medic al 25-100 mg 00 (three) Center per tablet times daily . Myrbetriq 2020-02 Yes 50mg QD Take [address] 50 mg Tb24 0-27 by mouth [facility] ER tablet 00:00: daily . Medic al 00 [place] carbidopa-l 2020-02 Yes 1{tbl} Q.[id number] Take [address] [facility] evodopa 0-27 [id number] tablet by L nagi (SINEMET) 00:00: 3D mouth 3 Medic al 25-100 mg 00 (three) Center per tablet times daily . Myrbetriq 2020-02 Yes 50mg QD Take [address] 50 mg Tb24 0-27 by mouth [facility] tablet 00:00: daily . Medic al 00 Center carbidopa-l 2020-02 Yes 1{tbl} Q.[id number] Take [address] [facility] evodopa 0-27 [id number] tablet by L nagi (SINEMET) 00:00: 3D mouth 3 Medic al 25-100 mg 00 (three) Center per tablet times daily . Myrbetriq 2020-02 Yes 50mg QD Take [address] 50 mg Tb24 0-27 by mouth [facility] tablet 00:00: daily . Medic al 00 Center carbidopa-l 2020-02 Yes 1{tbl} Q.[id number] Take [address] [facility] evodopa 0-27 [id number] tablet by Chuckie lazar (SINEMET) 00:00: 3D mouth 3 Medic al 25-100 mg 00 (three) Center per tablet times daily . Myrbetriq Myrbetriq 2020-02- No 1{table QD Myrbetriq [...] MG 00:00: 00:00 00 :00 Myrbetriq Myrbetriq 2020-02 2022- No 1{table QD Myrbetriq 50 MG [...] tablet 00:00: daily . Medic al 00 [place] finasteride 2020-0 Yes 5mg QD Take [address] (PROSCAR) 5 9-03 by mouth Luke s mg tablet 00:00: daily . Medic al 00 [place] finasteride 2020-0 Yes 5mg QD Take [address] (PROSCAR) 5 9-03 by mouth Luke s mg tablet 00:00: daily . Medic al 00 [place] finasteride 2020-0 Yes 5mg QD Take [address] (PROSCAR) 5 9-03 by mouth Luke s mg tablet 00:00: daily . Medic al 00 [place] finasteride 1-0 Yes 5mg QD Take [address] (PROSCAR) 5 9-03 by mouth Luke s mg tablet 00:00: daily . Medic al [place] finasteride 2020-0 Yes 5mg QD Take [address] (PROSCAR) 5 9-03 by mouth Luke s mg tablet 00:00: daily . Medic al [place] finasteride Yes 5mg QD Take [address] (PROSCAR) 5 10-27 by mouth Luke s mg tablet 00:00: daily . Medic al [place] Trospium Trospium 2020-0 2021- No QD Trospium Chloride ER Chloride [...] 07-26 t} MG 00:00: 00:00 00 :00 TAMSULOSIN 2020-1 Yes [id number] TAKE 1 [facility] 0.4 mg 24 1-11 CAPSULE BY ity of hr capsule 00:00: MOUTH [place] 00 EVERYDAY Medical AT BEDTIME Branch TAMSULOSIN 2020-1 Yes [id number] TAKE 1 [facility] 0.4 mg 24 1-11 CAPSULE BY ity of hr capsule 00:00: MOUTH [place] 00 EVERYDAY Medical AT BEDTIME Branch TAMSULOSIN 2020-1 Yes [id number] TAKE 1 [facility] 0.4 mg 24 1-11 CAPSULE BY ity of hr capsule 00:00: MOUTH [place] 00 EVERYDAY Medical AT BEDTIME Branch TAMSULOSIN 2020-1 Yes [id number] TAKE 1 Univers 0.4 mg 24 1-11 CAPSULE BY ity of hr capsule 00:00: MOUTH [place] 00 EVERYDAY Medical AT BEDTIME Branch TAMSULOSIN 2020-1 Yes [id number] TAKE 1 [facility] 0.4 mg 24 1-11 CAPSULE BY ity of hr capsule 00:00: MOUTH [place] 00 EVERYDAY Medical AT BEDTIME Branch TAMSULOSIN 2020-1 Yes [id number] TAKE 1 Univers 0.4 mg 24 1-11 CAPSULE BY ity of hr capsule 00:00: MOUTH [place] 00 EVERYDAY Medical AT BEDTIME Branch TAMSULOSIN 2020-1 Yes [id number] TAKE 1 Univers 0.4 mg 24 1-11 CAPSULE BY ity of hr capsule 00:00: MOUTH [place] 00 EVERYDAY Medical AT BEDTIME Branch TAMSULOSIN 2020-1 Yes [id number] TAKE 1 Univers 0.4 mg 24 1-11 CAPSULE BY ity of hr capsule 00:00: MOUTH [place] 00 EVERYDAY Medical AT BEDTIME Branch TAMSULOSIN 2020- Yes [id number] TAKE 1 Univers 0.4 mg 24 1-11 CAPSULE BY ity of hr capsule 00:00: MOUTH [place] 00 EVERYDAY Medical AT BEDTIME Branch TAMSULOSIN 2020-1 Yes [id number] TAKE 1 Univers 0.4 mg 24 1-11 CAPSULE BY ity of hr capsule 00:00: MOUTH [place] 00 EVERYDAY Medical AT BEDTIME Branch TAMSULOSIN 2020- Yes [id number] TAKE 1 Univers 0.4 mg 24 1-11 CAPSULE BY ity of hr capsule 00:00: MOUTH [place] 00 EVERYDAY Medical AT BEDTIME Branch TAMSULOSIN 2020- Yes [id number] TAKE 1 Univers 0.4 mg 24 1-11 CAPSULE BY ity of hr capsule 00:00: MOUTH [place] 00 EVERYDAY Medical AT BEDTIME Branch TAMSULOSIN 2020- Yes [id number] TAKE 1 Univers 0.4 mg 24 1-11 CAPSULE BY ity of hr capsule 00:00: MOUTH [place] 00 EVERYDAY Medical AT BEDTIME Branch TAMSULOSIN 2020- Yes [id number] TAKE 1 Univers 0.4 mg 24 1-11 CAPSULE BY ity of hr capsule 00:00: MOUTH [place] 00 EVERYDAY Medical AT BEDTIME Branch TAMSULOSIN 2020- Yes [id number] TAKE 1 Univers 0.4 mg 24 1-11 CAPSULE BY ity of hr capsule 00:00: MOUTH [place] 00 EVERYDAY Medical AT BEDTIME Branch TAMSULOSIN 2020-1 Yes [id number] TAKE 1 Univers 0.4 mg 24 1-11 CAPSULE BY ity of hr capsule 00:00: MOUTH [place] 00 EVERYDAY Medical AT BEDTIME Branch mirabegron 2020- Yes [id number] 50mg Take 1 Univers (MYRBETRIQ) 0-28 tablet by ity of 50 mg 00:00: mouth [place] tablet 00 daily. Medical Branch mirabegron 2020-1 Yes [id number] 50mg Take 1 Univers (MYRBETRIQ) 0-28 tablet by ity of 50 mg 00:00: mouth [place] tablet 00 daily. Medical Branch mirabegron 2020-1 Yes [id number] 50mg Take 1 Univers (MYRBETRIQ) 0-28 tablet by ity of 50 mg 00:00: mouth [place] tablet 00 daily. Medical Branch mirabegron 2019-02 Yes [id number] 50mg Take 1 Univers (MYRBETRIQ) 0-28 tablet by ity of 50 mg 00:00: mouth [place] tablet 00 daily. Medical Branch mirabegron 2019- Yes [id number] 50mg Take 1 Univers (MYRBETRIQ) 0-28 tablet by ity of 50 mg 00:00: mouth [place] tablet 00 daily. [facility] Branch mirabegron 2019-02 Yes [id number] 50mg Take 1 Univers (MYRBETRIQ) 0-28 tablet by ity of 50 mg 00:00: mouth [place] tablet 00 daily. [facility] Branch mirabegron 2019-02 Yes [id number] 50mg Take 1 Univers (MYRBETRIQ) 0-28 tablet by ity of 50 mg 00:00: mouth [place] tablet 00 daily. Medical Branch mirabegron 2019- Yes [id number] 50mg Take 1 Univers (MYRBETRIQ) 0-28 tablet by ity of 50 mg 00:00: mouth [place] tablet 00 daily. [facility] Branch mirabegron 2019-02 Yes [id number] 50mg Take 1 Univers (MYRBETRIQ) 0-28 tablet by ity of 50 mg 00:00: mouth [place] tablet 00 daily. [facility] Branch mirabegron 2019-02 Yes [id number] 50mg Take 1 Univers (MYRBETRIQ) 0-28 tablet by ity of 50 mg 00:00: mouth [place] tablet 00 daily. Medical Branch mirabegron 2019-02 Yes [id number] 50mg Take 1 Univers (MYRBETRIQ) 0-28 tablet by ity of 50 mg 00:00: mouth [place] tablet 00 daily. [facility] Branch mirabegron 2019-2022- No [id number] 50mg Take 1 Univers (MYRBETRIQ) 0-28 09-27 tablet by it y of 50 mg 00:00: 00:00 mouth [place] tablet 00 :00 daily. Medical Branch insulin Yes 50U inject 50 Unive rs degludec 5-16 Units ity of (TRESIBA 09:41: [place] U-100 21 skin. Medical INSULIN) Branch 100 unit/mL Soln metoprolol 2019-0 Yes 25mg Take 25 mg U nivers succinate 5-16 by mouth 2 ity of XL 25 mg 24 09:41: (two) [place] hr tablet 21 times Medical daily. Branch clopidogrel 2019-0 Yes 75mg Take 75 mg Univers 75 mg 5-16 by mouth ity of tablet 09:41: daily. [place] [address] Medical Branch rosuvastati 2019-0 Yes 20mg Take 20 mg Univers n 20 mg 5-16 by mouth ity of tablet 09:41: at [place] [address] bedtime. Medical Branch ezetimibe 2019-0 Yes 10mg Take 10 mg Un anita 10 mg 5-16 by mouth ity of tablet 09:41: daily. [place] [address] Medical Branch repaglinide 2019-0 Yes 1mg Take 1 mg U nivers 1 mg tablet 5-16 by mouth 3 it y of 09:41: (three) [place] [address] times Medical daily Branch before meals. irbesartan 2019-0 Yes 300mg Take 300 Un anita 300 mg 5-16 mg by ity of tablet 09:41: mouth at [place] [address] bedtime. Medical Branch metFORMIN 2019-0 Yes 1000mg Take 1,000 Univers 1,000 mg 24 5-16 mg by ity of hr tablet 09:41: mouth 2 [place] [address] (two) Medical times Branch daily with meals. aspirin 81 2019-0 Yes 81mg Take 81 mg U nivers mg chewable 5-16 by mouth ity of tablet 09:41: daily. [place] [address] Medical Branch tolterodine 2019-0 Yes 4mg Take 4 mg U nivers [place] 4 mg 24 5-16 by mouth ity o f hr capsule 09:41: daily. [place] [address] Medical Branch insulin 2019-0 Yes 50U inject 50 Unive rs degludec 5-16 Units ity of (TRESIBA 09:41: under the [facility] s U-100 21 skin. Medical INSULIN) Branch 100 unit/mL Soln metoprolol 2019-0 Yes 25mg Take 25 mg U nivers succinate 5-16 by mouth 2 ity of XL 25 mg 24 09:41: (two) [place] hr tablet 21 times Medical daily. Branch clopidogrel 2019-0 Yes 75mg Take 75 mg Univers 75 mg 5-16 by mouth ity of tablet 09:41: daily. [place] [address] Medical Branch rosuvastati 2019-0 Yes 20mg Take 20 mg Univers n 20 mg 5-16 by mouth ity of tablet 09:41: at [place] [address] bedtime. Medical Branch ezetimibe 2018-0 Yes 10mg Take 10 mg Un anita 10 mg 5-16 by mouth ity of tablet 09:41: daily. [place] [address] Medical Branch repaglinide 2018-0 Yes 1mg Take 1 mg U nivers 1 mg tablet 5-16 by mouth 3 it y of 09:41: (three) [place] [address] times Medical daily Branch before meals. irbesartan 2019-0 Yes 300mg Take 300 Un anita 300 mg 5-16 mg by ity of tablet 09:41: mouth at [place] [address] bedtime. Medical Branch metFORMIN 0 Yes 1000mg Take 1,000 Univers 1,000 mg 24 5-16 mg by ity of hr tablet 09:41: mouth 2 [place] [address] (two) Medical times Branch daily with meals. aspirin 81 2018- Yes 81mg Take 81 mg U nivers mg chewable 5-16 by mouth ity of tablet 09:41: daily. [place] [address] Medical Branch tolterodine 2018-0 Yes 4mg Take 4 mg U nivers [place] 4 mg 24 5-16 by mouth ity o f hr capsule 09:41: daily. [place] [address] Medical Branch insulin 0 Yes 50U inject 50 Unive rs degludec 5-16 Units ity of (TRESIBA 09:41: under the [facility] s U-100 21 skin. Medical INSULIN) Branch 100 unit/mL Soln metoprolol 2018-0 Yes 25mg Take 25 mg U nivers succinate 5-16 by mouth 2 ity of XL 25 mg 24 09:41: (two) [place] hr tablet 21 times Medical daily. Branch clopidogrel Yes 75mg Take 75 mg Univers 75 mg 5-16 by mouth ity of tablet 09:41: daily. [place] [address] Medical Branch rosuvastati 2018-0 Yes 20mg Take 20 mg Univers n 20 mg 5-16 by mouth ity of tablet 09:41: at [place] [address] bedtime. Medical Branch ezetimibe 0 Yes 10mg Take 10 mg Un anita 10 mg 5-16 by mouth ity of tablet 09:41: daily. [place] [address] Medical Branch repaglinide 2018-0 Yes 1mg Take 1 mg U nivers 1 mg tablet 5-16 by mouth 3 it y of 09:41: (three) [place] [address] times Medical daily Branch before meals. irbesartan 2019-0 Yes 300mg Take 300 Un anita 300 mg 5-16 mg by ity of tablet 09:41: mouth at [place] [address] bedtime. Medical Branch metFORMIN 2019-0 Yes 1000mg Take 1,000 Univers 1,000 mg 24 5-16 mg by ity of hr tablet 09:41: mouth 2 [place] [address] (two) Medical times Branch daily with meals. aspirin 81 2019-0 Yes 81mg Take 81 mg U nivers mg chewable 5-16 by mouth ity of tablet 09:41: daily. [place] [address] Medical Branch tolterodine 2019-0 Yes 4mg Take 4 mg U nivers [place] 4 mg 24 5-16 by mouth ity o f hr capsule 09:41: daily. [place] [address] Medical Branch insulin 2018-0 Yes 50U inject 50 Unive rs degludec 5-16 Units ity of (TRESIBA 09:41: under the [facility] s U-100 21 skin. Medical INSULIN) Branch 100 unit/mL Soln metoprolol 2019-0 Yes 25mg Take 25 mg U nivers succinate 5-16 by mouth 2 ity of XL 25 mg 24 09:41: (two) [facility] tablet 21 times Medical daily. Branch clopidogrel 2018-0 Yes 75mg Take 75 mg Univers 75 mg 5-16 by mouth ity of tablet 09:41: daily. [place] [address] Medical Branch rosuvastati 2018-0 Yes 20mg Take 20 mg Univers n 20 mg 5-16 by mouth ity of tablet 09:41: at [place] [address] bedtime. Medical Branch ezetimibe 2019-0 Yes 10mg Take 10 mg Un anita 10 mg 5-16 by mouth ity of tablet 09:41: daily. [place] [address] Medical Branch repaglinide 2019-0 Yes 1mg Take 1 mg U nivers 1 mg tablet 5-16 by mouth 3 it y of 09:41: (three) [place] [address] times Medical daily Branch before meals. irbesartan 2019-0 Yes 300mg Take 300 Un anita 300 mg 5-16 mg by ity of tablet 09:41: mouth at [place] [address] bedtime. Medical Branch metFORMIN 2019-0 Yes 1000mg Take 1,000 Univers 1,000 mg 24 5-16 mg by ity of hr tablet 09:41: mouth 2 [place] [address] (two) Medical times Branch daily with meals. aspirin 81 2019- Yes 81mg Take 81 mg U nivers mg chewable 5-16 by mouth ity of tablet 09:41: daily. [place] [address] Medical Branch tolterodine 2019-0 Yes 4mg Take 4 mg U nivers [place] 4 mg 24 5-16 by mouth ity o f hr capsule 09:41: daily. [place] [address] Medical Branch insulin 2018-0 Yes 50U inject 50 Unive rs degludec 5-16 Units ity of (TRESIBA 09:41: under the [facility] s U-100 21 skin. Medical INSULIN) Branch 100 unit/mL Soln metoprolol 2018-0 Yes 25mg Take 25 mg U nivers succinate 5-16 by mouth 2 ity of XL 25 mg 24 09:41: (two) [facility] tablet 21 times Medical daily. Branch clopidogrel 0 Yes 75mg Take 75 mg Univers 75 mg 5-16 by mouth ity of tablet 09:41: daily. [address] Branch rosuvastati 0 Yes 20mg Take 20 mg Univers n 20 mg 5-16 by mouth ity of tablet 09:41: at [place] [address] bedtime. Medical Branch ezetimibe 2018-0 Yes 10mg Take 10 mg Un anita 10 mg 5-16 by mouth ity of tablet 09:41: daily. [place] [address] Medical Branch repaglinide 2018-0 Yes 1mg Take 1 mg U nivers 1 mg tablet 5-16 by mouth 3 it y of 09:41: (three) [place] [address] times Medical daily Branch before meals. irbesartan 2019-0 Yes 300mg Take 300 Un anita 300 mg 5-16 mg by ity of tablet 09:41: mouth at [place] [address] bedtime. Medical Branch metFORMIN 2019-0 Yes 1000mg Take 1,000 Univers 1,000 mg 24 5-16 mg by ity of hr tablet 09:41: mouth 2 [place] [address] (two) Medical times [place] daily with meals. aspirin 81 2019-0 Yes 81mg Take 81 mg U nivers mg chewable 5-16 by mouth ity of tablet 09:41: daily. [place] [address] Medical Branch tolterodine 2019-0 Yes 4mg Take 4 mg U nivers [place] 4 mg 24 5-16 by mouth ity o f hr capsule 09:41: daily. [place] [address] Medical [place] insulin 2019-0 Yes 50U inject 50 Unive rs degludec 5-16 Units ity of (TRESIBA 09:41: [place] U-100 21 skin. Medical INSULIN) Branch 100 unit/mL Soln metoprolol 2019-0 Yes 25mg Take 25 mg U nivers succinate 5-16 by mouth 2 ity of XL 25 mg 24 09:41: (two) [facility] tablet 21 times Medical daily. Branch clopidogrel 2019-0 Yes 75mg Take 75 mg Univers 75 mg 5-16 by mouth ity of tablet 09:41: daily. [place] [address] Medical Branch rosuvastati 2018-0 Yes 20mg Take 20 mg Univers n 20 mg 5-16 by mouth ity of tablet 09:41: at [place] [address] bedtime. Medical Branch ezetimibe 2018-0 Yes 10mg Take 10 mg Un anita 10 mg 5-16 by mouth ity of tablet 09:41: daily. [place] [address] Medical Branch repaglinide 2018-0 Yes 1mg Take 1 mg U nivers 1 mg tablet 5-16 by mouth 3 it y of 09:41: (three) [place] [address] times Medical daily Branch before meals. irbesartan 2018-0 Yes 300mg Take 300 Un anita 300 mg 5-16 mg by ity of tablet 09:41: mouth at [place] [address] bedtime. Medical Branch metFORMIN 2018-0 Yes 1000mg Take 1,000 Univers 1,000 mg 24 5-16 mg by ity of hr tablet 09:41: mouth 2 [place] [address] (two) Medical times Branch daily with meals. aspirin 81 2019-0 Yes 81mg Take 81 mg U nivers mg chewable 5-16 by mouth ity of tablet 09:41: daily. [place] [address] Medical Branch tolterodine 2019-0 Yes 4mg Take 4 mg U nivers [place] 4 mg 24 5-16 by mouth ity o f hr capsule 09:41: daily. [place] [address] Medical Branch insulin 2019-0 Yes 50U inject 50 Unive rs degludec 5-16 Units ity of (TRESIBA 09:41: [place] U-100 21 skin. Medical INSULIN) Branch 100 unit/mL Soln metoprolol 2018-0 Yes 25mg Take 25 mg U nivers succinate 5-16 by mouth 2 ity of XL 25 mg 24 09:41: (two) [place] hr tablet 21 times Medical daily. Branch clopidogrel 2019-0 Yes 75mg Take 75 mg Univers 75 mg 5-16 by mouth ity of tablet 09:41: daily. [place] [address] Medical Branch rosuvastati 2018-0 Yes 20mg Take 20 mg Univers n 20 mg 5-16 by mouth ity of tablet 09:41: at [place] [address] bedtime. Medical Branch ezetimibe 0 Yes 10mg Take 10 mg Un anita 10 mg 5-16 by mouth ity of tablet 09:41: daily. [place] [address] Medical Branch repaglinide 2018-0 Yes 1mg Take 1 mg U nivers 1 mg tablet 5-16 by mouth 3 it y of 09:41: (three) [place] [address] times Medical daily Branch before meals. irbesartan 2019-0 Yes 300mg Take 300 Un anita 300 mg 5-16 mg by ity of tablet 09:41: mouth at [place] [address] bedtime. Medical Branch metFORMIN 0 Yes 1000mg Take 1,000 Univers 1,000 mg 24 5-16 mg by ity of hr tablet 09:41: mouth 2 [place] [address] (two) Medical times Branch daily with meals. aspirin 81 2018-0 Yes 81mg Take 81 mg U nivers mg chewable 5-16 by mouth ity of tablet 09:41: daily. [place] [address] Medical Branch tolterodine 0 Yes 4mg Take 4 mg U nivers [place] 4 mg 24 5-16 by mouth ity o f hr capsule 09:41: daily. [place] [address] Medical Branch insulin 0 Yes 50U inject 50 Unive rs degludec 5-16 Units ity of (TRESIBA 09:41: under the [facility] s U-100 21 skin. Medical INSULIN) Branch 100 unit/mL Soln metoprolol 0 Yes 25mg Take 25 mg U nivers succinate 5-16 by mouth 2 ity of XL 25 mg 24 09:41: (two) [place] hr tablet 21 times Medical daily. Branch clopidogrel Yes 75mg Take 75 mg Univers 75 mg 5-16 by mouth ity of tablet 09:41: daily. [place] [address] Medical Branch rosuvastati 0 Yes 20mg Take 20 mg Univers n 20 mg 5-16 by mouth ity of tablet 09:41: at [place] [address] bedtime. Medical Branch ezetimibe 0 Yes 10mg Take 10 mg Un anita 10 mg 5-16 by mouth ity of tablet 09:41: daily. [place] [address] Medical Branch repaglinide 2019-0 Yes 1mg Take 1 mg U nivers 1 mg tablet 5-16 by mouth 3 it y of 09:41: (three) [place] [address] times Medical daily Branch before meals. irbesartan 2019-0 Yes 300mg Take 300 Un anita 300 mg 5-16 mg by ity of tablet 09:41: mouth at [place] [address] bedtime. Medical Branch metFORMIN 2018-0 Yes 1000mg Take 1,000 Univers 1,000 mg 24 5-16 mg by ity of hr tablet 09:41: mouth 2 [place] [address] (two) Medical times Branch daily with meals. aspirin 81 2019-0 Yes 81mg Take 81 mg U nivers mg chewable 5-16 by mouth ity of tablet 09:41: daily. [place] [address] Medical Branch tolterodine 2018-0 Yes 4mg Take 4 mg U nivers [place] 4 mg 24 5-16 by mouth ity o f hr capsule 09:41: daily. [place] [address] Medical Branch insulin 2018-0 Yes 50U inject 50 Unive rs degludec 5-16 Units ity of (TRESIBA 09:41: under the [facility] s U-100 21 skin. Medical INSULIN) Branch 100 unit/mL Soln metoprolol 2018-0 Yes 25mg Take 25 mg U nivers succinate 5-16 by mouth 2 ity of XL 25 mg 24 09:41: (two) [place] tablet 21 times Medical daily. Branch clopidogrel 0 Yes 75mg Take 75 mg Univers 75 mg 5-16 by mouth ity of tablet 09:41: daily. [place] [address] Medical Branch rosuvastati 2018-0 Yes 20mg Take 20 mg Univers n 20 mg 5-16 by mouth ity of tablet 09:41: at [place] [address] bedtime. Medical Branch ezetimibe 2019-0 Yes 10mg Take 10 mg Un anita 10 mg 5-16 by mouth ity of tablet 09:41: daily. [place] [address] Medical Branch repaglinide 2018-0 Yes 1mg Take 1 mg U nivers 1 mg tablet 5-16 by mouth 3 it y of 09:41: (three) [place] [address] times Medical daily Branch before meals. irbesartan 2019-0 Yes 300mg Take 300 Un anita 300 mg 5-16 mg by ity of tablet 09:41: mouth at [place] 21 bedtime. Medical Branch metFORMIN 2019-0 Yes 1000mg Take 1,000 Univers 1,000 mg 24 5-16 mg by ity of hr tablet 09:41: mouth 2 [place] [address] (two) Medical times Branch daily with meals. aspirin 81 2019-0 Yes 81mg Take 81 mg U nivers mg chewable 5-16 by mouth ity of tablet 09:41: daily. [place] [address] Medical Branch tolterodine 2019-0 Yes 4mg Take 4 mg U nivers [place] 4 mg 24 5-16 by mouth ity o f hr capsule 09:41: daily. [place] [address] Medical Branch insulin 2018-0 Yes 50U inject 50 Unive rs degludec 5-16 Units ity of (TRESIBA 09:41: under the [facility] s U-100 21 skin. Medical INSULIN) Branch 100 unit/mL Soln metoprolol 2018-0 Yes 25mg Take 25 mg U nivers succinate 5-16 by mouth 2 ity of XL 25 mg 24 09:41: (two) [facility] tablet 21 times Medical daily. Branch clopidogrel 2018-0 Yes 75mg Take 75 mg Univers 75 mg 5-16 by mouth ity of tablet 09:41: daily. [place] [address] Medical Branch rosuvastati 2018-0 Yes 20mg Take 20 mg Univers n 20 mg 5-16 by mouth ity of tablet 09:41: at [place] [address] bedtime. Medical Branch ezetimibe 2018-0 Yes 10mg Take 10 mg Un anita 10 mg 5-16 by mouth ity of tablet 09:41: daily. [place] [address] Medical Branch repaglinide 2018-0 Yes 1mg Take 1 mg U nivers 1 mg tablet 5-16 by mouth 3 it y of 09:41: (three) [place] [address] times Medical daily Branch before meals. irbesartan 2019-0 Yes 300mg Take 300 Un anita 300 mg 5-16 mg by ity of tablet 09:41: mouth at [place] [address] bedtime. Medical Branch metFORMIN 2019-0 Yes 1000mg Take 1,000 Univers 1,000 mg 24 5-16 mg by ity of hr tablet 09:41: mouth 2 [place] [address] (two) Medical times Branch daily with meals. aspirin 81 2019- Yes 81mg Take 81 mg U nivers mg chewable 5-16 by mouth ity of tablet 09:41: daily. [place] [address] Medical Branch tolterodine 2019-0 Yes 4mg Take 4 mg U nivers [place] 4 mg 24 5-16 by mouth ity o f hr capsule 09:41: daily. [address] Escitalopra Escitalopra No 1{table QD Escitalopr m [...] MG 00:00 :00 Flomax 0.4 Flomax 0.4 2021- No 1{capsu QD Flomax 0.4 MG MG 05-28 le} MG 00:00 :00 Flomax 0.4 Flomax 0.4 2021- No 1{capsu QD Flomax 0.4 MG MG 05- le} MG 00:00 :00 Immunizations Ordered Filled Date Status Comments Source Immunization Name Immunization Name SARS-COV-2 COVID-19 2020-04-27 Completed Unive rsity of PFIZER VACCINE 00:00:00 [facility] SARS-COV-2 COVID-19 2020-04-27 Completed Unive rsity of PFIZER VACCINE 00:00:00 [facility] SARS-COV-2 COVID-19 2020-04-27 Completed Unive rsity of PFIZER VACCINE 00:00:00 [facility] SARS-COV-2 COVID-19 2020-04-27 Completed Unive rsity of PFIZER VACCINE 00:00:00 [facility] SARS-COV-2 COVID-19 2020-04-27 Completed Unive rsity of PFIZER VACCINE 00:00:00 [facility] SARS-COV-2 COVID-19 2020-04-27 Completed Unive rsity of PFIZER VACCINE 00:00:00 [facility] SARS-COV-2 COVID-19 2020-04-27 Completed Unive rsity of PFIZER VACCINE 00:00:00 [facility] SARS-COV-2 COVID-19 2020-04-27 Completed Unive rsity of PFIZER VACCINE 00:00:00 [facility] SARS-COV-2 COVID-19 2020-04-27 Completed Unive rsity of PFIZER VACCINE 00:00:00 [facility] SARS-COV-2 COVID-19 2020-04-27 Completed Unive rsity of PFIZER VACCINE 00:00:00 [facility] SARS-COV-2 COVID-19 2020-04-27 Completed Unive rsity of PFIZER VACCINE 00:00:00 [facility] SARS-COV-2 COVID-19 2020-04-06 Completed Unive rsity of PFIZER VACCINE 00:00:00 [facility] SARS-COV-2 COVID-19 2020-04-06 Completed Unive rsity of PFIZER VACCINE 00:00:00 [facility] SARS-COV-2 COVID-19 2020-04-06 Completed Unive rsity of PFIZER VACCINE 00:00:00 [facility] SARS-COV-2 COVID-19 2020-04-06 Completed Unive rsity of PFIZER VACCINE 00:00:00 [place] [facility] Branch SARS-COV-2 COVID-19 2020-04-06 Completed Unive rsity of PFIZER VACCINE 00:00:00 [facility] Branch SARS-COV-2 COVID-19 2020-04-06 Completed Unive rsity of PFIZER VACCINE 00:00:00 [facility] Branch SARS-COV-2 COVID-19 2020-04-06 Completed Unive rsity of PFIZER VACCINE 00:00:00 [facility] Branch SARS-COV-2 COVID-19 2020-04-06 Completed Unive rsity of PFIZER VACCINE 00:00:00 [facility] Branch SARS-COV-2 COVID-19 2020-04-06 Completed Unive rsity of PFIZER VACCINE 00:00:00 [facility] Branch SARS-COV-2 COVID-19 2020-04-06 Completed Unive rsity of PFIZER VACCINE 00:00:00 [facility] Branch SARS-COV-2 COVID-19 2020-04-06 Completed Unive rsity of PFIZER VACCINE 00:00:00 [facility] Branch SARS-COV-2 COVID-19 Unknown Completed Unive rsity of PFIZER VACCINE [facility] Branch SARS-COV-2 COVID-19 Unknown Completed Unive rsity of PFIZER VACCINE [facility] Branch SARS-COV-2 COVID-19 Unknown Completed Unive rsity of PFIZER VACCINE [facility] Branch SARS-COV-2 COVID-19 Unknown Completed Unive rsity of PFIZER VACCINE [facility] Branch SARS-COV-2 COVID-19 Unknown Completed Unive rsity of PFIZER VACCINE [facility] Branch SARS-COV-2 COVID-19 Unknown Completed Unive rsity of PFIZER VACCINE [facility] Branch SARS-COV-2 COVID-19 Unknown Completed Unive rsity of PFIZER VACCINE [facility] Branch SARS-COV-2 COVID-19 Unknown Completed Unive rsity of PFIZER VACCINE [facility] Branch SARS-COV-2 COVID-19 Unknown Completed Unive rsity of PFIZER VACCINE [facility] Branch SARS-COV-2 COVID-19 Unknown Completed Unive rsity of PFIZER VACCINE [facility] Branch Vital Signs Vital Name Observation Time Observation Value Comments Source Systolic blood 2022-11-20 20:30:00 97 mm[Hg] Univer sity of pressure [place] [facility] Diastolic blood 2022-11-20 20:30:00 57 mm[Hg] Unive rsity of pressure [place] [facility] Heart rate 2022-11-20 20:30:00 66 /min [facility] [place] [facility] Body temperature 2022-11-20 20:30:00 36.11 [facility] [place] [facility] Respiratory rate 2022-11-20 20:30:00 16 /min Univ ers[facility] of [place] [facility] Oxygen saturation in 2022-11-20 20:30:00 99 /min University of Arterial blood by [facility] Pulse oximetry Branch Body weight 2022-11-19 08:59:00 123.469 kg [facility] [place] [facility] BMI 2022-11-19 08:59:00 36.92 kg/m2 [facility] [place] [facility] Body height 2022-11-09 21:55:00 182.9 cm [facility] [place] [facility] Systolic blood 2022-11-10 15:35:00 119 mm[Hg] Univer sity of pressure [place] [facility] Diastolic blood 2022-11-10 15:35:00 72 mm[Hg] Unive rsity of pressure [place] [facility] Heart rate 2022-11-10 15:35:00 81 /min [facility] [place] [facility] Body temperature 2022-11-10 15:35:00 36.78 [facility] [facility] [place] [facility] Respiratory rate 2022-11-10 15:35:00 19 /min [facility] [place] [facility] Oxygen saturation in 2022-11-10 15:35:00 97 /min University of Arterial blood by [facility] Pulse oximetry Branch Body weight 2022-11-10 08:01:00 103.465 kg [facility] [place] [facility] BMI 2022-11-10 08:01:00 30.94 kg/m2 [facility] [place] [facility] Body height 2022-11-09 21:55:00 182.9 cm [facility] [place] [facility] Systolic blood 2022-03-28 21:00:00 106 mm[Hg] Univer sity of pressure [place] [facility] Diastolic blood 2022-03-28 21:00:00 66 mm[Hg] Unive rsity of pressure [place] [facility] Heart rate 2022-03-28 21:00:00 67 /min [facility] [place] [facility] Respiratory rate 2022-03-28 21:00:00 17 /min [facility] ersity of [facility] Oxygen saturation in 2022-03-28 21:00:00 99 /min University of Arterial blood by [facility] Pulse oximetry Branch Body temperature 2022-03-28 17:01:00 37.22 [facility] [facility] Body height 2022-03-28 17:01:00 182.9 cm [facility] [place] [facility] Body weight 2022-03-28 17:01:00 113.399 kg [facility] [place] [facility] [place] BMI 2022-03-28 17:01:00 33.91 kg/m2 [facility] Systolic blood 2022-02-11 22:25:00 123 mm[Hg] [facility]iver [facility]ity of pressure [facility] Diastolic blood 2022-02-11 22:25:00 69 mm[Hg] Unive rsity of pressure [facility] Heart rate 2022-02-11 22:25:00 108 /min [facility] Respiratory rate 2022-02-11 22:25:00 20 /min [facility] ersity of [facility] Oxygen saturation in 2022-02-11 22:25:00 94 /min [facility] of Arterial blood by [facility] Pulse oximetry Branch Body temperature 2022-02-11 22:10:00 38.56 Breanne [facility] ersity of [facility] Body height 2022-02-11 14:33:00 180.3 cm [facility] [place] [facility] [place] Body weight 2022-02-11 14:33:00 117.482 kg [facility] BMI 2022-02-11 14:33:00 36.12 kg/m2 [facility] height 2021-08-30 15:45:00 69 [in_i] [facility] weight 2021-08-30 15:45:00 250 [lb_av] [facility] temperature 2021-08-30 15:45:00 97.4 [degF] [facility] bmi 2021-08-30 15:45:00 36.91 kg/m2 [facility] oximetry 2021-08-30 15:45:00 97 % [facility] respiratory rate 2021-08-30 15:45:00 16 /min Comm on [facility] blood pressure 2021-08-30 15:45:00 118 mm[Hg] [facility] - systolic [facility] blood pressure 2021-08-30 15:45:00 72 mm[Hg] [facility] - diastolic [facility] height 2021-02-21 13:00:00 69 [in_i] [facility] weight 2021-02-21 13:00:00 253 [lb_av] [facility] temperature 2021-02-21 13:00:00 98.1 [degF] [facility] bmi 2021-02-21 13:00:00 37.36 kg/m2 [facility] oximetry 2021-02-21 13:00:00 99 % [facility] respiratory rate 2021-02-21 13:00:00 18 /min Comm on [facility] blood pressure 2021-02-21 13:00:00 135 mm[Hg] [facility] systolic [facility] blood pressure 2021-02-21 13:00:00 73 mm[Hg] [facility] diastolic [facility] HEIGHT 2021-01-31 10:42:00 182.9 cm WEIGHT 2021-01-31 10:42:00 112.946 kg HEIGHT 2021-01-31 10:42:00 182.9 cm WEIGHT 2021-01-31 10:42:00 112.946 kg WEIGHT 2021-01-29 12:06:00 113.853 kg HEIGHT 2021-01-29 12:06:00 182.9 cm WEIGHT 2021-01-29 12:06:00 113.853 kg HEIGHT 2021-01-29 12:06:00 182.9 cm height 2021-01-25 13:00:00 69 [in_i] [facility] weight 2021-01-25 13:00:00 250 [lb_av] [facility] temperature 2021-01-25 13:00:00 97.5 [degF] [facility] bmi 2021-01-25 13:00:00 36.91 kg/m2 [facility] oximetry 2021-01-25 13:00:00 96 % [facility] respiratory rate 2021-01-25 13:00:00 20 /min Comm on [facility] height 2020-12-20 16:15:00 69 [in_i] [facility] weight 2020-12-20 16:15:00 253 [lb_av] [facility] temperature 2020-12-20 16:15:00 97.5 [degF] [facility] bmi 2020-12-20 16:15:00 37.36 kg/m2 [facility] oximetry 2020-12-20 16:15:00 98 % [facility] blood pressure 2020-12-20 16:15:00 141 mm[Hg] [facility] - systolic [facility] blood pressure 2020-12-20 16:15:00 63 mm[Hg] [facility] - diastolic [facility] Systolic blood 2021-01-31 19:58:00 130 mm[Hg] [facility] Diastolic blood 2021-01-31 19:58:00 59 mm[Hg] [facility] Heart rate 2021-01-31 19:58:00 65 /min [facility] Respiratory rate 2021-01-31 19:58:00 18 /min [facility] Oxygen saturation in 2021-01-31 18:30:00 96 /min [facility] Arterial blood by Medical Ce nter Pulse oximetry Body temperature 2021-01-31 10:42:00 35.56 Breanne [facility] Body height 2021-01-31 10:42:00 182.9 cm [facility] Body weight 2021-01-31 10:42:00 112.946 kg [facility] BMI 2021-01-31 10:42:00 33.77 kg/m2 [facility] Procedures Procedure Date / Time Performing Clinician Source Performed XR CHEST 1 VW 2022-11-20 19:24:34 [facility] PHOSPHORUS 2022-11-20 09:00:00 [facility] MAGNESIUM 2022-11-20 09:00:00 [facility] BASIC METABOLIC PANEL (NA, 2022-11-20 09:00:00 Sujata Soto [facility] K, CL, CO2, GLUCOSE, BUN, Medica l Branch CREATININE, CA) CBC WITH DIFF 2022-11-20 09:00:00 [facility] POCT GLUCOSE (AUTOMATED) 2022-11-20 01:44:00 Larry Mohammad A. [facility] POCT GLUCOSE (AUTOMATED) 2022-11-19 21:48:00 Mathews, Mohammad A. [facility] POCT GLUCOSE (AUTOMATED) 2022-11-19 16:43:00 Larry, Mohammad A. [facility] POCT GLUCOSE (AUTOMATED) 2022-11-19 12:48:00 Larry Mohammad A. [facility]iversity [facility] BASIC METABOLIC PANEL (NA, 2022-11-19 09:09:00 Anjana Valenzuela [facility] K, CL, CO2, GLUCOSE, BUN, Medica l Branch CREATININE, CA) CBC WITH DIFF 2022-11-19 09:09:00 Anjana Valenzuela [facility] POCT GLUCOSE (AUTOMATED) 2022-11-19 00:54:00 Mathews, Mohammad A. [facility] POCT GLUCOSE (AUTOMATED) 2022-11-18 21:42:00 Mathews, Mohammad A. [facility] POCT GLUCOSE (AUTOMATED) 2022-11-18 16:49:00 Mathews, Mohammad A. [facility] POCT GLUCOSE (AUTOMATED) 2022-11-18 13:01:00 Dash Mathews [facility] BASIC METABOLIC PANEL (NA, 2022-11-18 10:15:00 Anjana Valenzuela [facility] K, CL, CO2, GLUCOSE, BUN, Medica l Branch CREATININE, CA) CBC WITH DIFF 2022-11-18 10:15:00 Anjana Valenzuela [facility] POCT GLUCOSE (AUTOMATED) 2022-11-18 01:23:00 Dash Mathews [facility] CT HEAD WO CONTRAST 2022-11-17 23:27:00 Anjana Valenzuela [facility] POCT GLUCOSE (AUTOMATED) 2022-11-17 21:29:00 Dash Mathews [facility] CBC WITH DIFF 2022-11-17 21:16:00 Anjaan Valenzuela [facility] BASIC METABOLIC PANEL (NA, 2022-11-17 09:24:00 Anjana Valenzuela [facility] K, CL, CO2, GLUCOSE, BUN, Medica l Branch CREATININE, CA) POCT GLUCOSE (AUTOMATED) 2022-11-17 01:09:00 Dash Mathews [facility] POCT GLUCOSE (AUTOMATED) 2022-11-16 21:40:00 Dash Mathews [facility] POCT GLUCOSE (AUTOMATED) 2022-11-16 17:04:00 Dash Mathews [facility] POCT GLUCOSE (AUTOMATED) 2022-11-16 13:14:00 Dash Mathews [facility] BASIC METABOLIC PANEL (NA, 2022-11-16 09:03:00 Volodymyr Gonzales [facility] K, CL, CO2, GLUCOSE, BUN, Medica l Branch CREATININE, CA) CBC WITH DIFF 2022-11-16 09:03:00 [facility] ([facility]) 2022-11-16 01:39:00 Cecy Mathewsammad A. [facility] POCT GLUCOSE (AUTOMATED) 2022-11-15 21:35:00 Mathews, Mohammad A. [facility] POCT GLUCOSE (AUTOMATED) 2022-11-15 16:48:00 Mathews, Mohammad A. [facility] POCT GLUCOSE (AUTOMATED) 2022-11-15 12:28:00 Mathews Mohammad A. [facility] POCT GLUCOSE (AUTOMATED) 2022-11-15 01:17:00 Mathews, Mohammad A. [facility] POCT GLUCOSE (AUTOMATED) 2022-11-14 21:35:00 Mathews, Mohammad A. [facility] POCT GLUCOSE (AUTOMATED) 2022-11-14 16:34:00 Mathews, Mohammad A. [facility] POCT GLUCOSE (AUTOMATED) 2022-11-14 12:59:00 Mathews, [facility]OLIC PAN[facility] (NA, 2022-11-14 09:36:00 Anjana Valenzuela [facility] K, CL, CO2, GLUCOSE, BUN, Medica l Branch CREATININE, CA) CBC WITH DIFF 2022-11-14 09:36:00 Anjana Valenzuela [facility] POCT GLUCOSE (AUTOMATED) 2022-11-14 00:46:00 Mathews Mohammad A. [facility] POCT GLUCOSE (AUTOMATED) 2022-11-13 21:34:00 Mathews, Mohammad A. [facility] POCT GLUCOSE (AUTOMATED) 2022-11-13 16:46:00 Mathews, Mohammad A. [facility] POCT GLUCOSE (AUTOMATED) 2022-11-13 12:53:00 Mathews, Mohammad A. [facility] BASIC METABOLIC PANEL (NA, 2022-11-13 09:30:00 Anjana Valenzuela [facility] K, CL, CO2, GLUCOSE, BUN, Medica l Branch CREATININE, CA) CBC WITH DIFF 2022-11-13 09:30:00 Anjana Valenzuela [facility] POCT GLUCOSE (AUTOMATED) 2022-11-13 01:41:00 Dash Mathews [facility] POCT GLUCOSE (AUTOMATED) 2022-11-12 21:26:00 [facility] 2022-11-12 19:51:00 [facility]SE (AUTOMATED) 2022-11-12 16:48:00 Dash Mathews [facility] POCT GLUCOSE (AUTOMATED) 2022-11-12 13:03:00 Dash Mathews [facility] PHOSPHORUS 2022-11-12 08:41:00 Nigel [facility] MAGNESIUM 2022-11-12 08:41:00 Nigel [facility] BASIC METABOLIC PANEL (NA, 2022-11-12 08:41:00 [facility], CL, CO2, GLUCOSE, BUN, Medica l Branch CREATININE, CA) CBC WITH DIFF 2022-11-12 08:41:00 [facility] POCT GLUCOSE (AUTOMATED) 2022-11-12 01:20:00 Dash Mathews [facility] POCT GLUCOSE (AUTOMATED) 2022-11-11 21:33:00 Dash Mathews. U [facility] POCT GLUCOSE (AUTOMATED) 2022-11-11 16:46:00 Dash Mathews. [facility]SE (AUTOMATED) 2022-11-11 16:46:00 Dash Mathews. U [facility] PREPARE PACKED RBC 2022-11-11 16:16:40 [facility] 2022-11-11 16:16:40 [facility]UM 2022-11-11 14:29:00 Kofi [facility] POCT GLUCOSE (AUTOMATED) 2022-11-11 13:12:00 Dash Mathews [facility] POCT GLUCOSE (AUTOMATED) 2022-11-11 13:12:00 Dash Mathews [facility] BASIC METABOLIC PANEL (NA, 2022-11-11 10:21:00 Freddy Manning [facility] K, CL, CO2, GLUCOSE, BUN, Medica l Branch CREATININE, CA) VANCOMYCIN TROUGH 2022-11-11 10:21:00 Dash Mathews [facility] CBC WITH DIFF 2022-11-11 10:21:00 Nigel [facility] BASIC METABOLIC PANEL (NA, 2022-11-11 10:21:00 Freddy Manning [facility] K, CL, CO2, GLUCOSE, BUN, Medica l Branch CREATININE, CA) VANCOMYCIN TROUGH 2022-11-11 10:21:00 Dash Mathews [facility] CBC WITH DIFF 2022-11-11 10:21:00 Nigel [facility] POCT GLUCOSE (AUTOMATED) 2022-11-10 21:16:00 Dash Mathews [facility] POCT GLUCOSE (AUTOMATED) 2022-11-10 21:16:00 Dash Mathews [facility] ASPIRATE OR ABSCESS 2022-11-10 17:09:00 [facility] CULTURE(AEROBIC/ANAEROBIC) Medic al Branch ASPIRATE OR ABSCESS 2022-11-10 17:09:00 Catalina Doll [facility] [place] CULTURE(AEROBIC/ANAEROBIC) Medic al Branch ASPIRATE OR ABSCESS 2022-11-10 16:39:00 Catalina Doll [facility] ity [facility] CULTURE(AEROBIC/ANAEROBIC) Medic al Branch ASPIRATE OR ABSCESS 2022-11-10 16:39:00 Catalina Doll [facility] ity [facility] CULTURE(AEROBIC/ANAEROBIC) Medic al Branch DEBRIDEMENT ISCHIUM/SACRUM 2022-11-10 15:52:00 Catalina Doll [facility] DEBRIDEMENT ISCHIUM/SACRUM 2022-11-10 15:52:00 Catalina Doll [facility] TRANSTHORACIC ECHO (TTE) 2022-11-10 14:15:00 [facility] COMPLETE W/ CONTRAST [facility] TRANSTHORACIC ECHO (TTE) 2022-11-10 14:15:00 Dash [facility] COMPLETE W/ CONTRAST [facility] POCT GLUCOSE (AUTOMATED) 2022-11-10 12:47:00 Dash Mathews [facility] POCT GLUCOSE (AUTOMATED) 2022-11-10 12:47:00 Dash Mathews [facility] MAGNESIUM 2022-11-10 08:44:00 Dash Mathews [facility] FERRITIN SERUM 2022-11-10 08:44:00 Nigel [facility] IRON 2022-11-10 08:44:00 Nigel [facility] VITAMIN B12, LEVEL 2022-11-10 08:44:00 Nigel [facility] FOLATE 2022-11-10 08:44:00 Nigel [facility] TOTAL IRON BINDING 2022-11-10 08:44:00 Nigel [facility] BASIC METABOLIC PANEL (NA, 2022-11-10 08:44:00 Dash Mathews [facility] K, CL, CO2, GLUCOSE, BUN, Medica l Branch CREATININE, CA) CBC WITH DIFF 2022-11-10 08:44:00 Dash Mathews [facility] PROCALCITONIN 2022-11-10 08:44:00 Dash Mathews [facility] MAGNESIUM 2022-11-10 08:44:00 Dash Mathews [facility] FERRITIN SERUM 2022-11-10 08:44:00 Nigel [facility] IRON 2022-11-10 08:44:00 Nigel [facility] VITAMIN B12, LEVEL 2022-11-10 08:44:00 Nigel [facility] FOLATE 2022-11-10 08:44:00 Nigel [facility] TOTAL IRON BINDING 2022-11-10 08:44:00 Nigel [facility] BASIC METABOLIC PANEL (NA, 2022-11-10 08:44:00 Dash Mathews [facility] K, CL, CO2, GLUCOSE, BUN, Medica l Branch CREATININE, CA) CBC WITH DIFF 2022-11-10 08:44:00 Dash Mathews [facility] PROCALCITONIN 2022-11-10 08:44:00 Dash Mathews [facility] PHOSPHORUS 2022-11-10 01:20:00 Dash Mathews [facility] PHOSPHORUS 2022-11-10 01:20:00 Dash Mathews [facility] LACTIC ACID WHOLE BLOOD 2022-11-10 00:56:00 Mary Amezquita [facility] LACTIC ACID WHOLE BLOOD 2022-11-10 00:56:00 Mary Amezquita [facility] URINE CULTURE 2022-11-09 23:48:00 Mary Amezquita [facility] URINE CULTURE 2022-11-09 23:48:00 Mary Amezquita [facility] CT ABDOMEN PELVIS W 2022-11-09 23:39:07 Mary Amezquita [facility] CT ABDOMEN PELVIS W 2022-11-09 23:39:07 [facility] HB ECG ROUTINE & RHYTHM 2022-11-09 22:53:52 Mary Amezquita [facility] HB ECG ROUTINE & RHYTHM 2022-11-09 22:53:52 Mary Amezquita [facility] XR CHEST 1 VW 2022-11-09 22:48:11 Mary Amezquita [facility] XR CHEST 1 VW 2022-11-09 22:48:11 Mary Amezquita [facility] ORION AURIS SURVEILLANCE 2022-11-09 22:39:00 Constanza Amezquita [facility] BY PCR (INFECTION CONTROL [facility] PURPOSES) ORION AURIS SURVEILLANCE 2022-11-09 22:39:00 Constanza Amezquita [facility] BY PCR (INFECTION CONTROL [facility] PURPOSES) BLOOD CULTURE SCREEN 2022-11-09 22:35:00 Mary Amezquita [facility] MAGNESIUM 2022-11-09 22:35:00 Mary Amezquita [facility] TROPONIN I 2022-11-09 22:35:00 Mary Amezquita [facility] COMP. METABOLIC PANEL 2022-11-09 22:35:00 Mary Amezquita [facility] ([id number]) [facility] CBC WITH DIFF 2022-11-09 22:35:00 Mary Amezquita [facility] PROTHROMBIN TIME / INR 2022-11-09 22:35:00 Mary Amezquita [facility] ACTIVATED PARTIAL THRMPLAS 2022-11-09 22:35:00 Constanza Amezquita [facility] HB ABO GROUPING 2022-11-09 22:35:00 Mary Amezquita [facility] N-TERMINAL PRO-BNP 2022-11-09 22:35:00 Mary Amezquita [facility] LACTIC ACID WHOLE BLOOD 2022-11-09 22:35:00 Mary Amezquita [facility] WOUND CULTURE 2022-11-09 22:35:00 Mary Amezquita [facility] COVID-19 (ID NOW RAPID 2022-11-09 22:35:00 Mary Amezquita [facility]) [facility] BLOOD CULTURE SCREEN 2022-11-09 22:35:00 Mary Amezquita [facility] MAGNESIUM 2022-11-09 22:35:00 Mary Amezquita [facility] TROPONIN I 2022-11-09 22:35:00 Mary Amezquita [facility] COMP. METABOLIC PANEL 2022-11-09 22:35:00 Mary Amezquita [facility] ([id number]) [facility] [place] CBC WITH DIFF 2022-11-09 22:35:00 Mary Amezquita [facility] PROTHROMBIN TIME / INR 2022-11-09 22:35:00 Mary Amezquita [facility] ACTIVATED PARTIAL THRMPLAS 2022-11-09 22:35:00 Constanza Amezquita [facility] HB ABO GROUPING 2022-11-09 22:35:00 Mary Amezquita [facility] WOUND/ASPIRATE OR ABSCESS 2022-11-09 22:35:00 Mary Amezquita [facility] CULTURE [facility] N-TERMINAL PRO-BNP 2022-11-09 22:35:00 Mary Amezquita [facility] LACTIC ACID WHOLE BLOOD 2022-11-09 22:35:00 Mary Amezquita [facility] WOUND CULTURE 2022-11-09 22:35:00 Mary Amezquita [facility] COVID-19 (ID NOW RAPID 2022-11-09 22:35:00 Mary Amezquita [facility] TESTING) Medical Branch LAB ONLY COVID 2022-11-09 22:35:00 Mary Amezquita [facility] INTERPRETATION Medical Branch ASSIGNMENT OF BENEFITS 2022-11-09 22:23:48 Doctor Unassigned, [facility] ASSIGNMENT OF BENEFITS 2022-11-09 22:23:48 Doctor Unassigned, [facility] CONSENT/REFUSAL FOR 2022-11-09 22:22:35 [facility]AT[facility] CONSENT/REFUSAL FOR 2022-11-09 22:22:35 [facility] DIAGNOSIS AND TREATMENT [facility] EMERGENCY DEPARTMENT 2022-11-09 05:01:00 Doctor Bienvenido Ely [facility] DOCUMENTS [facility] HOME HEALTH - OTHER 2022-11-01 05:01:00 Doctor Kalyani Ely [facility] HOME HEALTH - OTHER 2022-10-22 05:01:00 Doctor Kalyani Ely [facility] HOME HEALTH - OTHER 2022-10-01 05:01:00 [facility] HOME HEALTH - OTHER 2022-09-10 05:01:00 Doctor [facility] HOME HEALTH - OTHER 2022-09-04 05:01:00 [facility] HOME HEALTH - OTHER 2022-05-15 05:01:00 Doctor [facility] CT ABDOMEN PELVIS WO 2022-03-28 19:34:10 Victorina Echavarria [facility] CONTRAST Medical Branch URINALYSIS 2022-03-28 18:58:00 Victorina Echavarria [facility] CBC WITH DIFF 2022-03-28 18:33:00 Victorina Echavarria [facility] ABORH CONFIRMATION (LAB 2022-03-28 18:31:00 Victorina Echavarria [facility] ONLY) Medical Branch DUPLEX VENOUS LEG RIGHT - 2022-03-28 18:07:05 Victorina Echavarria [facility] BY VASCULAR LAB Medical Branch HB ABO GROUPING 2022-03-28 18:05:00 Victorina Echavarria [facility] COMP. METABOLIC PANEL 2022-03-28 18:04:00 Victorina Echavarria [facility] ([id number]) Medical Branch EKG-12 LEAD 2022-02-11 17:16:51 Forrest Waldron [facility] NOTICE OF PRIVACY 2022-02-11 15:35:04 Doctor Ely, [facility] PRACTICES [facility] CONSENT/REFUSAL FOR 2022-02-11 15:31:09 Bienvenido Sernae [facility] DIAGNOSIS AND TREATMENT [facility] XR CHEST 1 VW 2022-02-11 15:09:24 [facility] 2022-02-11 14:49:00 Forrest Waldron [facility] COMP. METABOLIC PANEL 2022-02-11 14:49:00 Forrest Waldron [facility] ([id number]) Medical Branch CBC WITH DIFF 2022-02-11 14:49:00 Forrest Waldron [facility] PROTHROMBIN TIME / INR 2022-02-11 14:49:00 Koffi [facility] URINALYSIS 2022-02-11 14:49:00 Koffi [facility] N-TERMINAL PRO-BNP 2022-02-11 14:49:00 Forrest Waldron [facility] COVID-19 (ID NOW RAPID 2022-02-11 14:49:00 Forrest Waldron [facility] TESTING) [facility] LAB ONLY COVID 2022-02-11 14:49:00 Forrest Waldron [facility] INTERPRETATION [facility] POCT-GLUCOSE METER 2021-01-31 18:12:00 Calin [facility] POCT-GLUCOSE METER 2021-01-31 17:27:00 Calin [facility] ANGIOGRAM, CORONARY, WITH 2021-01-31 16:06:00 Gutierrez Carrasquillo CH I [facility] LEFT HEART CATHETERIZATION Cente r ECG 12-LEAD 2021-01-31 12:24:58 Gutierrez Carrasquillo [facility] ECG 12-LEAD 2021-01-31 12:24:58 Unknown, [id number] Doctor [facility] TYPE AND SCREEN, AUTOMATED 2021-01-31 11:53:00 Gutierrez Carrasquillo [facility] VASCULAR DIAGRAM -SCAN 2021-01-31 00:00:00 Provider, Default [facility] CARDIAC CATH REPORT - SCAN 2021-01-31 00:00:00 Provider, Default [facility] CBC W/PLT COUNT & AUTO 2021-01-29 12:53:00 [facility] DIFFERENTIAL Center BASIC METABOLIC PANEL 2021-01-29 12:53:00 [facility] CBC W/PLT COUNT & AUTO 2021-01-29 12:53:00 [facility] DIFFERENTIAL Center SARS-COV2/RT-PCR ([facility] & 2021-01-29 12:41:00 [facility] REF LABS) Center Plan of Care Planned Activity Planned Date Details Comments Source Future Scheduled 2022-12-18 Screening for [facility] Test 02:50:56 malignant neoplasm of colon (procedure) [code = 785148949] Future Scheduled 2022-12-18 SHINGLES VACCINES (1 [facility] 02:50:56 of 2) [code = SHINGLES VACCINES (1 of 2)] Future Scheduled 2022-12-18 65+ [facility]OCOCCAL [facility] 02:50:56 VACCINE (1 - PCV) [code = 65+ PNEUMOCOCCAL VACCINE (1 - PCV)] Future Scheduled 2022-12-18 COVID-19 VACCINE (4 - [facility] 02:50:56 season) [code = COVID-19 VACCINE (4 - season)] Future Scheduled 2022-12-18 INFLUENZA VACCINE (#[facility]) [facility]:50[facility]56 [code = INFLUENZA VACCINE (#1)] Future Scheduled 2022-12-18 Screening for [facility] Test 02:50:56 malignant neoplasm of colon (procedure) [code = 255315618] Future Scheduled 2022-12-18 Screening for [facility] Test 02:50:56 malignant neoplasm of colon (procedure) [code = 968064531] Future Scheduled 2022-12-18 Scre[facility] Test 02:50:56 malignant neoplasm of colon (procedure) [code = 041134954] Future Scheduled 2022-12-18 [facility]56 (procedure) [code = 443113325] Future Scheduled 2022-12-18 [facility] Test 02:50:56 malignant neoplasm of colon (procedure) [code = 938231642] Future Scheduled 2022-10-25 Influenza Vaccine (#1) [facility] Test 00:00:00 [code = Influenza Medical Ce nter Vaccine (#1)] Future Scheduled 2022-02-[address] [facility] Test 00:00:00 (12+) [code = Medical Center DEPRESSION SCREENING (12+)] Future Scheduled 2022-02-24 FALL[facility] RISK SCREENING [facility] [facility] [code = FALLS RISK Medical C enter SCREENING] Future Scheduled 2022-01-[address] [facility] 00:[facility]:00 Counseling and Medical Cente r Screening (12+) [code = Tobacco Cessation Counseling and Screening (12+)] Future Scheduled 2021-12-26 HEPATITIS B VACCINES Met [facility] Test 03:16:57 (1 of 3 - 3-dose series) [code = HEPATITIS B VACCINES (1 of 3 - 3-dose series)] Future Scheduled 2021-12-26 Hepatitis C screening [facility] Test 03:16:57 (procedure) [code = 173275457] Future Scheduled 2021-12-26 COLONOSCOPY SCREENING [facility] Test 03:16:57 [code = COLONOSCOPY SCREENING] Future Scheduled 2021-12-26 SHINGLES VACCINES (1 Met [facility] Test 03:16:57 of 2) [code = SHINGLES VACCINES (1 of 2)] Future Scheduled 2021-12-26 65+ [facility] 03:16:57 VACCINE (1 - PCV) [code = 65+ PNEUMOCOCCAL VACCINE (1 - PCV)] Future Scheduled 2021-12-26 COVID-19 VACCINE (4 - [facility] Test 03:16:57 Booster for Pfizer series) [code = COVID-19 VACCINE (4 - Booster for Pfizer series)] Future Scheduled 2021-12-26 INFLUENZA VACCINE [facility] 03:16:57 [code = INFLUENZA VACCINE] Future Scheduled 2021-12-26 HEPATITIS B VACCINES Met [facility] Test 03:16:57 (1 of 3 - 3-dose series) [code = HEPATITIS B VACCINES (1 of 3 - 3-dose series)] Future Scheduled 2021-12-26 Hepatitis C screening [facility] Test 03:16:57 (procedure) [code = 111387108] Future Scheduled 2021-12-26 [facility] 03:16:57 [code = COLONOSCOPY SCREENING] Future Scheduled 2021-12-26 SHINGLES VACCINES (1 Met [facility] Test 03:16:57 of 2) [code = SHINGLES VACCINES (1 of 2)] Future Scheduled 2021-12-26 65+ [facility]OCOCCAL [facility] 03:16:57 VACCINE (1 - PCV) [code = 65+ PNEUMOCOCCAL VACCINE (1 - PCV)] Future Scheduled 2021-12-26 COVID-19 VACCINE (4 - [facility] Test 03:16:57 Booster for Pfizer series) [code = COVID-19 VACCINE (4 - Booster for Pfizer series)] Future Scheduled 2021-12-26 INFLUENZA VACCINE Method [facility] Test 03:16:57 [code = INFLUENZA VACCINE] Future Scheduled 2021-12-26 HEPATITIS B VACCINES Met [facility] Test 03:16:57 (1 of 3 - 3-dose series) [code = HEPATITIS B VACCINES (1 of 3 - 3-dose series)] Future Scheduled 2021-12-26 Hepatitis C screening [facility] Test 03:16:57 (procedure) [code = [id number]] Future Scheduled 2021-12-26 COLONOSCOPY SCREENING [facility] Test 03:16:57 [code = COLONOSCOPY SCREENING] Future Scheduled 2021-12-26 SHINGLES VACCINES (1 Met [facility] Test 03:16:57 of 2) [code = SHINGLES VACCINES (1 of 2)] Future Scheduled 2021-12-26 65+ [facility] 03:16:57 VACCINE (1 - PCV) [code = 65+ PNEUMOCOCCAL VACCINE (1 - PCV)] Future Scheduled 2021-12-26 COVID-19 VACCINE (4 - [facility] Test 03:16:57 Booster for Pfizer series) [code = COVID-19 VACCINE (4 - Booster for Pfizer series)] Future Scheduled 2021-12-26 INFLUENZA VACCINE Method [facility] Test 03:16:57 [code = INFLUENZA VACCINE] Future Scheduled 2021-12-26 HEPATITIS B VACCINES Met [facility] Test 03:16:57 (1 of 3 - 3-dose series) [code = HEPATITIS B VACCINES (1 of 3 - 3-dose series)] Future Scheduled 2021-12-26 Hepatitis C screening [facility] Test 03:16:57 (procedure) [code = 610725489] Future Scheduled 2021-12-26 COLONOSCOPY SCREENING Me [facility] Test 03:16:57 [code = COLONOSCOPY SCREENING] Future Scheduled 2021-12-26 SHINGLES VACCINES (1 Met [facility] Test 03:16:57 of 2) [code = SHINGLES VACCINES (1 of 2)] Future Scheduled 2021-12-26 65+ [facility]OCOCCAL [facility] 03:16:57 VACCINE (1 - PCV) [code = 65+ PNEUMOCOCCAL VACCINE (1 - PCV)] Future Scheduled 2021-12-26 COVID-19 VACCINE (4 - Me [facility] Test 03:16:57 Booster for Pfizer series) [code = COVID-19 VACCINE (4 - Booster for Pfizer series)] Future Scheduled 2021-12-26 INFLUENZA VACCINE Method [facility] Test 03:16:57 [code = INFLUENZA VACCINE] Future Scheduled 2021-12-26 HEPATITIS B VACCINES Met [facility] Test 03:16:57 (1 of 3 - 3-dose series) [code = HEPATITIS B VACCINES (1 of 3 - 3-dose series)] Future Scheduled 2021-12-26 Hepatitis C screening [facility] Test 03:16:57 (procedure) [code = 628023672] Future Scheduled 2021-12-26 COLONOSCOPY SCREENING [facility] Test 03:16:57 [code = COLONOSCOPY SCREENING] Future Scheduled 2021-12-26 SHINGLES VACCINES (1 Met [facility] Test 03:16:57 of 2) [code = SHINGLES VACCINES (1 of 2)] Future Scheduled 2021-12-26 65+ [facility]OCOCCAL [facility] 03:16:57 VACCINE (1 - PCV) [code = 65+ PNEUMOCOCCAL VACCINE (1 - PCV)] Future Scheduled 2021-12-26 COVID-19 VACCINE (4 - Me [facility] Test 03:16:57 Booster for Pfizer series) [code = COVID-19 VACCINE (4 - Booster for Pfizer series)] Future Scheduled 2021-12-26 INFLUENZA VACCINE [facility] Test 03:16:57 [code = INFLUENZA VACCINE] Future Scheduled 2021-11-14 HEPATITIS B VACCINES Met [facility] Test 03:16:58 (1 of 3 - 3-dose series) [code = HEPATITIS B VACCINES (1 of 3 - 3-dose series)] Future Scheduled 2021-11-14 Hepatitis C screening [facility] Test 03:16:58 (procedure) [code = 051355143] Future Scheduled 2021-11-14 COLONOSCOPY SCREENING [facility] Test 03:16:58 [code = COLONOSCOPY SCREENING] Future Scheduled 2021-11-14 SHINGLES VACCINES (1 Met [facility] Test 03:16:58 of 2) [code = SHINGLES VACCINES (1 of 2)] Future Scheduled 2021-11-14 65+ P[facility]OCOCCAL [facility] 03:16:58 VACCINE (1 - PCV) [code = 65+ PNEUMOCOCCAL VACCINE (1 - PCV)] Future Scheduled 2021-11-14 COVID-19 VACCINE (4 - [facility] Test 03:16:58 Booster for Pfizer series) [code = COVID-19 VACCINE (4 - Booster for Pfizer series)] Future Scheduled 2021-11-14 INFLUENZA VACCINE [facility] Test 03:16:58 [code = INFLUENZA VACCINE] Future Scheduled 2021-10-25 INFLUENZA VACCINE (#1) C [...] - Booster for Pfizer series)] Future Scheduled 2020-06-22 COVID-19 VACCINE (3 - [facility] Pfizer series) [code = [facility] COVID-19 VACCINE (3 - Pfizer series)] Future Scheduled 2015-08-[address] [facility] Medical Center (procedure) [code = 51927495] Future Scheduled 2015-08-[address] [facility] measurement Medical Center (procedure) [code = 92547617] Future Scheduled 2015-08-[address] [facility] measurement Medical Center (procedure) [code = 87055156] Future Scheduled 2015-08-[address] [facility] measurement Medical Center (procedure) [code = 97924951] Future Scheduled 2015-08-[address] [facility] measurement Medical Center (procedure) [code = 78063728] Future Scheduled 2015-08-[address] [facility] measurement Medical Center (procedure) [code = 02891044] Future Scheduled 2015-08-[address] [facility] measurement Medical Center (procedure) [code = 38298710] Future Scheduled 2014-12-[address] [...] screening Medical C enter (procedure) [code = 072182119] Future Scheduled [address] [facility] 00:00:00 aneurysm screening Medical C enter (procedure) [code = 131207810] Future Scheduled [address] [facility] 00:00:00 aneurysm screening Medical C enter (procedure) [code = 119465203] Future Scheduled [address] [facility] 00:00:00 aneurysm screening Medical C enter (procedure) [code = 253543612] Future Scheduled [address] [facility] 00:00:00 aneurysm screening Medical C enter (procedure) [code = 369911989] Future Scheduled [address] [facility] 00:00:00 aneurysm screening Medical C enter (procedure) [code = 446400889] Future Scheduled 1999 SHINGLES VACCINES (1 [facility] [...] Cessation Counseling and Screening (12+)] Future Scheduled [address] [facility] 00:00:00 Counseling and Medical Cente r Screening (12+) [code = Tobacco Cessation Counseling and Screening (12+)] Future Scheduled [address] [facility] 00:00:00 Counseling and Medical Cente r Screening (12+) [code = Tobacco Cessation Counseling and Screening (12+)] Future Scheduled [address] [facility] 00:00:00 Counseling and Medical Cente r Screening (12+) [code = Tobacco Cessation Counseling and Screening (12+)] Future Scheduled [address] EXAM [facility] 00:00:00 [code = DIABETIC EYE Medical Center EXAM] Future Scheduled [address] [facility] examination Medical Center (regime/therapy) [code = 815365734] Future Scheduled 1959 Urine screening for [facility] 00:00:00 protein (procedure) Medical Center [code = 047786943] Future Scheduled [address] EYE EXAM [facility] 00:00:00 [code = DIABETIC EYE Medical Center EXAM] Future Scheduled [address] [facility] 00:[facility]:00 examination Medical Center (regime/therapy) [code = 337604470] Future Scheduled 1959 Urine screening for [facility] 00:00:00 protein (procedure) Medical Center [code = 071284825] Future Scheduled [address] EYE EXAM [facility] 00:00:00 [code = DIABETIC EYE Medical Center EXAM] Future Scheduled [address] [facility] 00:[facility]:00 examination Medical Center (regime/therapy) [code = 658841741] Future Scheduled 1959 Urine screening for [facility] 00:00:00 protein (procedure) Medical Center [code = 489308600] Future Scheduled [address] EYE EXAM [facility] 00:00:00 [code = DIABETIC EYE Medical Center EXAM] Future Scheduled [address] [facility] 00:00:00 examination Medical Center (regime/therapy) [code = 755595839] Future Scheduled 1959 Urine screening for [facility] 00:00:00 protein (procedure) Medical Center [code = 160339454] Future Scheduled [address] EYE EXAM [facility] 00:00:00 [code = DIABETIC EYE Medical Center EXAM] Future Scheduled [address] [facility] 00:00:00 examination Medical Center (regime/therapy) [code = 894286798] Future Scheduled 1959 Urine screening for [facility] 00:00:00 protein (procedure) Medical Center [code = 918518712] Future Scheduled [address] EYE EXAM [facility] 00:00:00 [code = DIABETIC EYE Medical Center EXAM] Future Scheduled [address] [facility] 00:00:00 examination Medical Center (regime/therapy) [code = 557600921] Future Scheduled 1959 Urine screening for [facility] 00:00:00 protein (procedure) Medical Center [code = 011377478] Future Scheduled [address] EYE EXAM [facility] 00:00:00 [code = DIABETIC EYE Medical Center EXAM] Future Scheduled [address] [facility] 00:00:00 examination Medical Center (regime/therapy) [code = 086764436] Future Scheduled 1959 Urine screening for [facility] 00:00:00 protein (procedure) Medical Center [code = 152722565] Future Scheduled 1955 PNEUMOCOCCAL 65+ YRS [facility] [...] Medica l Center colon (procedure) [code = 904403933] Future Scheduled [address] [facility] 00:00:00 malignant neoplasm of Medica l Center colon (procedure) [code = 380464971] Future Scheduled [address] [facility] 00:00:00 malignant neoplasm of Medica l Center colon (procedure) [code = 341184718] Future Scheduled [address] [facility] 00:00:00 malignant neoplasm of Medica l Center colon (procedure) [code = 509725592] Future Scheduled 1949 Sigmoidoscopy [facility]] Medical Cente r Future Scheduled [address] [facility] 00:00:00 (combo) [code = CT Medical C enter Colonography (combo)] Future Scheduled [address] [facility] 00:00:00 malignant neoplasm of Medica l Center colon (procedure) [code = 983002243] Future Scheduled [address] [facility] 00:00:00 malignant neoplasm of Medica l Center colon (procedure) [code = 341751105] Future Scheduled [address] [facility] 00:00:00 malignant neoplasm of Medica l Center colon (procedure) [code = 573220964] Future Scheduled [address] [facility] 00:00:00 malignant neoplasm of Medica l Center colon (procedure) [code = 103212910] Future Scheduled 1949 Sigmoidoscopy [facility]code [facility] S[facility]oidoscopy] Medical Franklyne r Future Scheduled [address] [facility] 00:00:00 (combo) [code = CT Medical C enter Colonography (combo)] Future Scheduled [address] [facility] 00:00:00 malignant neoplasm of Medica l Center colon (procedure) [code = 117366388] Future Scheduled [address] [facility] 00:00:00 malignant neoplasm of Medica l Center colon (procedure) [code = 868965667] Future Scheduled [address] [facility] 00:00:00 malignant neoplasm of Medica l Center colon (procedure) [code = 185513630] Future Scheduled [address] [facility] 00:00:00 malignant neoplasm of Medica l Center colon (procedure) [code = 831867176] Future Scheduled 1949 [facility]oid[facility] [address] [facility] 00:00:00 (combo) [code = CT Medical C enter Colonography (combo)] Future Scheduled [address] [facility] 00:00:00 malignant neoplasm of Medica l Center colon (procedure) [code = 170783341] Future Scheduled [address] [facility] 00:00:00 malignant neoplasm of Medica l Center colon (procedure) [code = 219660783] Future Scheduled [address] [facility] 00:00:00 malignant neoplasm of Medica l Center colon (procedure) [code = 298132683] Future Scheduled [address] [facility] 00:00:00 malignant neoplasm of Medica l Center colon (procedure) [code = 501542804] Future Scheduled 1949 Sigmoidoscopy [facility]uled [address] [facility] 00:00:00 (combo) [code = CT Medical C enter Colonography (combo)] Future Scheduled [address] [facility] 00:00:00 malignant neoplasm of Medica l Center colon (procedure) [code = 604403404] Future Scheduled [address] [facility] 00:00:00 malignant neoplasm of Medica l Center colon (procedure) [code = 531380388] Future Scheduled [address] [facility] 00:00:00 malignant neoplasm of Medica l Center colon (procedure) [code = 406212654] Future Scheduled [address] [facility] 00:00:00 malignant neoplasm of Medica l Center colon (procedure) [code = 088833476] Future Scheduled 1949 Sigmoidoscopy [facility]] [facility] Future Scheduled [address] [facility] 00:00:00 (combo) [code = CT Medical C enter Colonography (combo)] Future Scheduled [address] [facility] 00:00:00 malignant neoplasm of Medica l Center colon (procedure) [code = 618969606] Future Scheduled [address] [facility] 00:00:00 malignant neoplasm of Medica l Center colon (procedure) [code = 969647787] Future Scheduled [address] [facility] 00:00:00 malignant neoplasm of Medica l Center colon (procedure) [code = 121485018] Future Scheduled [address] [facility] 00:00:00 malignant neoplasm of Medica l Center colon (procedure) [code = 736084306] Future Scheduled 1949 Sigmoidoscopy [facility]code [facility]] [facility] Future Scheduled [address] [facility] 00:00:00 (combo) [code = CT Medical C enter Colonography (combo)] Future Scheduled [address] [facility] 00:00:00 malignant neoplasm of Medica l Center colon (procedure) [code = 808955271] Future Scheduled [address] [facility] 00:00:00 malignant neoplasm of Medica l Center colon (procedure) [code = 789990803] Future Scheduled [address] [facility] 00:00:00 malignant neoplasm of Medica l Center colon (procedure) [code = 002376688] Future Scheduled [address] [facility] 00:00:00 malignant neoplasm of Medica l Center colon (procedure) [code = 056825499] Future Scheduled 1949 Sigmoidoscopy [facility]code [facility] S[facility]oscopy] Medical Cente r Encounters Start End Encounter Admission Attending Care Care Encounter Source Date/Time Date/Time Type Type Clinicians Facility Department ID 2022-01-14 Outpatient 3 [id number] [facility] REF [id number] [facility] 20:04:45 1121 [facility] Rehabil itation [place] 2021-09-11 Outpatient Nicolas, STLC STLC [id number] Common 14:35:01 Kash [facility] 2021-09-03 Outpatient Nicolas, STLC STLC [id number] Common 09:54:01 Kash 93726 [facility] 2021-03-21 Outpatient Nicolas, STLC STLC [id number] Common 14:02:16 Kash 69348 [facility] 2021-03-21 Outpatient Nicolas, STLC STLC [id number] Common 12:48:41 Kash 87532 [facility] 2021-03-21 Outpatient Nicolas, STLC STLC [id number] Common 12:41:21 Kash 43539 [facility] 2022-11-21 2022-11-21 Transition YULIYA Perkins 1.2.840.114 [id number] Univers 00:00:00 00:00:00 of Care Buck DAVALOS 350.1.13.10 [place] [id number] [facility] [address] 2022-11-09 2022-11-20 Inpatient X LARRY [facility] AKTELIN [id number] Univers 16:52:00 18:22:00 DASH butcher o f [facility] 2022-11-09 2022-11-20 [facility] 1.2.84 0.114 [id number] Univers 16:52:00 18:22:00 Encounter Dash Mathews 350.1.13. 10 [facility] [place] [id number] [facility] [address] 2022-11-18 2022-11-18 Telephone Rachel Orourke [facility] 1.2.840.114 [id number] Univers 00:00:00 00:00:00 REGINA 350.1.13.10 i [place] [id number] [facility] [address] 2022-11-10 2022-11-10 Surgery [facility] [id number] Univers 11:00:00 12:24:00 Catalina TAPIA 350.1.13.10 i [place] SUR[place]ICAL [id number] [facility] [address] 2022-11-01 2022-11-01 Outpatient R [facility] [id number] Univers 00:00:00 00:00:00 ity of [facility] 2022-11-01 2022-11-01 Orders Doctor EPPERSON 1.2.840.114 [id number] Univers 00:00:00 00:00:00 Only Unassigned, IMELDA 350.1.13.10 ity of [place] [facility] 4.2.7.2.686 [place] [id number] [facility] [address] 2022-10-22 2022-10-22 Outpatient R [facility] [id number] Univers 00:00:00 00:00:00 ity of [facility] 2022-10-22 2022-10-22 Orders Doctor EPPERSON 1.2.840.114 [id number] Univers 00:00:00 00:00:00 Only Unassigned, IMELDA 350.1.13.10 ity of [place] [facility] 4.2.7.2.686 [place] [id number] [address] 2022-10-01 2022-10-01 Outpatient R [facility] [id number] Univers 00:00:00 00:00:00 ity of [facility] 2022-10-01 2022-10-01 Orders Doctor EPPERSON 1.2.840.114 [id number] Univers 00:00:00 00:00:00 Only Unassigned, IMELDA 350.1.13.10 ity of [place] [facility] 4.2.7.2.686 [place] [id number] [address] 2022-09-10 2022-09-10 [facility] SHAORN Neely 1.2.840.114 [id number] Univers 09:27:00 23:59:00 Encounter Lalito Fuentes 350.1.13.[address] [facility] 4.2.7.2.686 [place] [id number] [address] 2022-09-10 2022-09-10 Outpatient R [facility] ACO [id number] Univers 00:00:00 23:59:00 LALITO ity [facility] 2022-09-10 2022-09-10 Orders Doctor EPPERSON 1.2.840.114 [id number] Univers 00:00:00 00:00:00 Only Unassigned, IMELDA 350.1.13.10 ity of [place] [facility] 4.2.7.2.686 [place] [id number] [address] 2022-09-04 2022-09-04 Outpatient R [facility] [id number] Univers 00:00:00 00:00:00 ity [facility] 2022-09-04 2022-09-04 Orders Doctor EPPERSON 1.2.840.114 [id number] Univers 00:00:00 00:00:00 Only Unassigned, IMELDA 350.1.13.10 ity of [place] [facility] 4.2.7.2.686 [place] [phone] [address] 2022-08-16 2022-08-16 [facility] 1.2.840.114 1 [id number] Univers 10:25:00 23:59:00 Encounter Lalito Fuentes 350.1.13.[address] [facility] 4.2.7.2.686 [place] [id number] [address] 2022-08-16 2022-08-16 Outpatient R [facility] ACO [id number] Univers 00:00:00 00:00:00 LALITO ity [facility] 2022-08-06 2022-08-06 [facility] 1.2.840.114 [id number] Univers 08:59:00 23:59:00 Encounter Lalito Fuentes 350.1.13.[address] [facility] 4.2.7.2.686 [place] [phone] [address] 2022-08-06 2022-08-06 Outpatient R [facility] ACO [id number] Univers 00:00:00 00:00:00 LALITO ity [facility] 2022-08-05 2022-08-05 Outpatient R [facility] [id number] Univers 00:00:00 00:00:00 ity of [facility] 2022-07-20 2022-07-20 Outpatient R [facility] [id number] Univers 00:00:00 00:00:00 ity of [facility] 2022-05-15 2022-05-15 Outpatient R [facility] [id number] Univers 00:00:00 00:00:00 ity [facility] 2022-05-15 2022-05-15 Orders Doctor EPPERSON 1.2.840.114 [id number] Univers 00:00:00 00:00:00 Only Unassigned, IMELDA 350.1.13.10 ity of [place] [facility] 4.2.7.2.686 [place] [id number] [address] 2022-04-12 2022-04-12 [facility] LATOSHA Neely 1.2.840.114 1 [id number] Univers 08:24:00 23:59:00 Encounter [facility]13.[facility].2.7.2.686 [place] [id number] [facility] [address] 2022-04-12 2022-04-12 Outpatient R CHIN [facility] ACO [id number] Univers 00:00:00 23:59:00 LALITO [facility] 2022-04-09 2022-04-09 Outpatient R [facility] [id number] Univers 00:00:00 00:00:00 [facility] 2022-03-28 2022-03-28 Emergency X JARAD, [facility] ERT [id number] Univers 11:02:00 17:31:00 VICTORINA [facility] 2022-03-28 2022-03-28 [facility] 1.2.840.114 [id number] Univers 11:02:00 17:31:00 Victorina REGINA 350.1.13.10 i ty of [place] 4.2.7.2.686 [facility] [id number] [place] [id number] [place] 2022-01-08 2022-03-08 Outpatient NEW KIRAN ENCCLR ENCCLR [id number] ENCCLR 00:00:00 00:00:00 ADMISSION HANNAH YEE 2022-02-11 2022-02-11 Emergency X WALDRON, [facility] ERT [id number] Univers 08:27:00 16:50:00 FORREST [facility] 2022-02-11 2022-02-11 [facility] 1.2.840.114 [id number] Univers 08:27:00 16:50:00 Forrest ANGLEADELINE 350.1.13.10 i ty of [place] 4.2.7.2.686 [facility] [id number] [address] 2022-01-15 2022-01-30 Inpatient 3 [place] ENCPL PAR [id number] [facility] 10:45:00 15:55:00 diane, 1122 ss [facility] itation Lambert power 2022-01-23 2022-01-23 Outpatient Devyn, MACARIOPM RADI [id number] [facility] 18:08:00 18:08:00 Arundhati 91 [facility] 2022-01-19 2022-01-19 Outpatient Kiran HCAPM LABO [id number] [facility] 00:31:00 00:31:00 Augie Neal Erika [facility] 2022-01-18 2022-01-18 Emergency EM Jatin Andrea HCAPM SHANDA LA00 [id number] [facility] 17:24:00 20:00:00 94 [facility] 2021-12-22 2022-01-08 Inpatient 3 Kiran-San ENCPL PAR 5802 [facility] 21:16:00 11:25:00 heroseline, 1029 [facility] itation [facility] 2022-01-03 2022-01-03 Outpatient Sylvain, HCAPM RADI [id number] [facility] 09:52:00 09:52:00 Brandi 52 [facility] 2021-12-03 2021-12-03 (TEL) STLMLC STLMLC [id number] Co mmon 00:00:00 00:00:00 [facility] 2021-11-29 2021-11-29 OFFICE STLMLC STLMLC [id number] Co mmon 00:00:00 00:00:00 VISIT [facility] [address] [facility] 2021-11-20 2021-11-20 (TEL) STLMLC STLMLC [id number] Co mmon 00:00:00 00:00:00 [facility] 2021-09-13 2021-09-13 (TEL) STLMLC STLMLC [id number] Co mmon 00:00:00 00:00:00 [facility] 2021-09-10 2021-09-10 (TEL) STLMLC STLMLC [id number] Co mmon 00:00:00 00:00:00 [facility] 2021-09-03 2021-09-03 ([place]) Nurse STLMLC STLMLC [id number] Common 00:00:00 00:00:00 Visit [facility] 2021-08-30 2021-08-30 OFFICE STLMLC STLMLC [id number] Co mmon 00:00:00 00:00:00 VISIT [facility] PT - CHI LEVEL 4 [facility] 2021-08-13 2021-08-13 (TEL) STLMLC STLMLC [id number] Co mmon 00:00:00 00:00:00 [facility] 2021-08-01 2021-08-01 ([place]) Nurse STLMLC STLMLC [id number] Common 00:00:00 00:00:00 Visit [facility] 2021-07-25 2021-07-25 ([place]) Nurse STLMLC STLMLC [id number] Common 00:00:00 00:00:00 Visit [facility] 2021-07-17 2021-07-17 OFFICE STLMLC STLMLC [id number] Co mmon 00:00:00 00:00:00 VISIT [facility] PT - CHI LEVEL [address] [facility] 2021-07-09 2021-07-09 ([place]) Nurse STLMLC STLMLC [id number] Common 00:00:00 00:00:00 Visit [facility] 2021-07-03 2021-07-03 ([place]) Nurse STLMLC STLMLC [id number] Common 00:00:00 00:00:00 Visit [facility] 2021-06-26 2021-06-26 ([place]) Nurse STLMLC STLMLC [id number] Common 00:00:00 00:00:00 Visit [facility] 2021-06-12 2021-06-12 ([place]) Nurse STLMLC STLMLC [id number] Common 00:00:00 00:00:00 Visit [facility] 2021-06-05 2021-06-05 ([place]) Nurse STLMLC STLMLC [id number] Common 00:00:00 00:00:00 Visit [facility] 2021-02-21 2021-02-21 OFFICE STLMLC STLMLC [id number] Co mmon 00:00:00 00:00:00 VISIT [facility] PT - CHI LEVEL [address] [facility] 2021-01-31 2021-01-[address] [facility] Surgery [id number] SLE 10:34:00 20:31:00 [facility] 2021-01-31 2021-01-31 Hospital SRINIVASAN Carrasquillo [facility] [id number] 10:34:00 20:31:00 Encounter [facility] 2021-01-31 2021-01-31 Surgery Calin [facility] [id number] 16:12:00 18:47:00 [facility] 2021-01-31 2021-01-31 Orders [facility] [id number] 00:00:00 00:00:00 Only [facility] 2021-01-31 2021-01-31 Travel [facility] [id number] [facility] 00:[facility]00 00:00:00 [facility] 2021-01-29 2021-01-[address] [facility] SLE [id number] SLE 11:52:04 11:52:04 2021-01-29 2021-01-29 Office Gutierrez Spear [facility] [id number] [facility] 11:30:00 11:45:00 Visit Doug Murphy [facility] 2021-01-29 2021-01-29 Travel [facility] [id number] [facility] 00:[facility]00 00:00:00 [facility] 2021-01-25 2021-01-25 OFFICE [facility] [id number] Co mmon 00:00:00 00:00:00 VISIT [facility] PT - CHI LEVEL 2 [facility] 2020-12-20 2020-12-20 OFFICE STLC STLC [id number] Co mmon 00:00:00 00:00:00 VISIT EST Spir it PT LEVEL 3 - [facility] 2020-12-06 2020-12-[address] 00:00:00 00:00:00 NATHAN [address] 2020-12-06 2020-12-[address] 00:00:00 00:00:00 NATHAN Noyola i 2020-10-26 2020-10-26 Outpatient STLMLC STLC [id number] Common 00:00:00 00:00:00 [facility] 2020-07-26 2020-07-26 Outpatient STLMLC STLMLC [id number] Common 00:00:00 00:00:00 [facility] 2020-05-31 2020-05-31 Outpatient STLMLC STLC [id number] Common 00:00:00 00:00:00 [facility] 2020-01-01 2020-01-01 Refill [facility] [id number] 00:00:00 00:00:00 Margarita [place] 350.1.13.10 [place] 4.2.7.2.686 Professio [id number] [address] 2019-12-29 2019-12-29 Telephone [facility] [id number] 00:00:00 00:00:00 Frank [place] 350.1.13.10 [place] 4.2.7.2.686 Professio [id number] [address] 2019-12-22 2019-12-22 [facility] [id number] 00:00:00 00:00:00 Margarita A [place] 350.1.13.10 [place] 4.2.7.2.686 Professio [id number] [address] 2019-11-22 2019-11-22 Office [facility] [id number] 16:02:17 16:33:28 Visit Frank [place] 350.1.13.10 [place] 4.2.7.2.686 Professio [id number] [address] 2019-11-22 2019-11-22 [facility] [id number] [facility] 16:00:00 16:00:00 FRANK [facility] 2019-07-05 2019-07-05 [facility] [id number] [facility] 10:00:00 10:00:00 [facility] 2019-03-08 2019-03-08 Outpatient R CHAYITO, [facility] [id number] Univers 10:00:00 10:40:33 [facility] Results Test Description Test Time Test Comments Results Result Comments Source POCT GLUCOSE (AUTOMATED) 2022-11-20 01:46:34 Test Item Value Reference Range Interpretation Comme nts POCT GLU (test code = 9449479917) 145 mg/dL 70-110 H Lab Interpretation (test code = 49784-6) [facility]22-[facility]19 21:52:09 Test Item Value Reference Range Interpretation Comments POCT GLU (test code = 2087223162) 132 mg/dL 70-110 H Lab Interpretation (test code = Abnormal 63000-8) [facility]2022-11-19 16:46:09 Test Item Value Reference Range Interpretation Comments POCT GLU (test code = 4708261524) 156 mg/dL 70-110 H Lab Interpretation (test code = Abnormal 91487-2) [facility]2022-11-19 12:53:16 Test Item Value Reference Range Interpretation Comments POCT GLU (test code = 9033397884) 130 mg/dL 70-110 H Lab Interpretation (test code = Abnormal 24933-2) [facility]2022-11-19 01:00:13 Test Item Value Reference Range Interpretation Comments POCT GLU (test code = 5262778139) 167 mg/dL 70-110 H Lab Interpretation (test code = Abnormal 03066-6) [facility]2022-11-18 21:53:25 Test Item Value Reference Range Interpretation Comments POCT GLU (test code = 0024281802) 154 mg/dL 70-110 H Lab Interpretation (test code = Abnormal 24725-7) [facility]2022-11-18 17:10:52 Test Item Value Reference Range Interpretation Comments POCT GLU (test code = 7290281572) 137 mg/dL 70-110 H Lab Interpretation (test code = Abnormal 92344-3) [facility] 13:12:07 Test Item Value Reference Range Interpretation Comments POCT GLU (test code = 8257050569) 139 mg/dL 70-110 H Lab Interpretation (test code = Abnormal 18245-5) [facility] GLUCOSE (AUTOMATED)2022-11-18 01:28:39 Test Item Value Reference Range Interpretation Comments POCT GLU (test code = 3448463392) 123 mg/dL 70-110 H Lab Interpretation (test code = Abnormal 68842-4) [facility] GLUCOSE (AUTOMATED)2022-11-17 21:37:02 Test Item Value Reference Range Interpretation Comments POCT GLU (test code = 3967406002) 123 mg/dL 70-110 H Lab Interpretation (test code = Abnormal 90548-0) [facility] GLUCOSE (AUTOMATED)2022-11-17 01:17:07 Test Item Value Reference Range Interpretation Comments POCT GLU (test code = 3197939422) 150 mg/dL 70-110 H Lab Interpretation (test code = Abnormal 25631-0) [facility] GLUCOSE (AUTOMATED)2022-11-16 21:43:19 Test Item Value Reference Range Interpretation Comments POCT GLU (test code = 4455537767) 130 mg/dL 70-110 H Lab Interpretation (test code = Abnormal 48222-8) [facility] GLUCOSE (AUTOMATED)2022-11-16 17:05:48 Test Item Value Reference Range Interpretation Comments POCT GLU (test code = 2386830896) 231 mg/dL 70-110 H Lab Interpretation (test code = Abnormal 90477-7) [facility] GLUCOSE (AUTOMATED)2022-11-16 13:15:09 Test Item Value Reference Range Interpretation Comments POCT GLU (test code = 8490346596) 123 mg/dL 70-110 H Lab Interpretation (test code = Abnormal 19048-3) General acute hospital WITH [id number] 11:19:55 Test Item Value Reference Range Interpretation Comments WBC (test code = 11.82 See_Comment H [Automated 6390-2) message] The sy stem which generated this result transmitted reference range : 4.20 - 10.70 10*3/?L. The reference range was not used to interpret this result as normal/abnormal . RBC (test code = 3.05 See_Comment L [Automated 789-8) message] The sy stem which generated this result transmitted reference range : 4.26 - 5.52 10*6/?L. The reference range was not used to interpret this result as normal/abnormal . HGB (test code = 8.3 g/dL 12.2-16.4 L 718-7) HCT (test code = 26.2 % 38.4-49.3 L 4544-3) MCV (test code = 85.9 fL 81.7-95.6 787-2) MCH (test code = 27.2 pg 26.1-32.7 785-6) MCHC (test code = 31.7 g/dL 31.2-35.0 786-4) RDW-SD (test code = 47.7 fL 38.5-51.6 62566-1) RDW-CV (test code = 16.4 % 12.1-15.4 H 788-0) PLT (test code = 485 See_Comment H [Automated 777-3) message] The sy stem which generated this result transmitted reference range : 150 - 328 10*3/ ?L. The reference r ivelisse was not used to interpret this result as normal/abnormal . MPV (test code = 9.2 fL 9.8-13.0 L 73024-0) NRBC/100 WBC (test 0.0 See_Comment [Automat ed code = 8600259441) message] The system which generated this result transmitted reference range : 0.0 - 10.0 /100 WBCs. The refer ence range was not u sed to interpret th is result as normal/abnormal . NRBC x10^3 (test code See_Comment [Auto mated = 8082532825) message] The s ystem which generated this result transmitted reference range : 10*3/?L. The reference range was not used to interpret this result as normal/abnormal . GRAN MAT (NEUT) % 64.7 % (test code = 770-8) IMM GRAN % (test code 3.70 % = 8769822006) LYMPH % (test code = 22.3 % 736-9) MONO % (test code = 6.3 % 5905-5) EOS % (test code = 2.6 % 713-8) BASO % (test code = 0.4 % 706-2) GRAN MAT x10^3(ANC) 7.64 10*3/uL 1.99-6.95 H (test code = 8916175696) IMM GRAN x10^3 (test 0.44 10*3/uL 0.00-0.06 H code = 8536698736) LYMPH x10^3 (test code 2.63 10*3/uL 1.09-3.23 = 731-0) MONO x10^3 (test code 0.75 10*3/uL 0.36-1.02 = 742-7) EOS x10^3 (test code = 0.31 10*3/uL 0.06-0.53 711-2) BASO x10^3 (test code 0.05 10*3/uL 0.01-0.09 = 704-7) Lab Interpretation Abnormal (test code = 62507-2) [facility] GLUCOSE (AUTOMATED)2022-11-16 01:40:38 Test Item Value Reference Range Interpretation Comments POCT GLU (test code = 6520723148) 111 mg/dL 70-110 H Lab Interpretation (test code = Abnormal 73104-8) [facility] GLUCOSE (AUTOMATED)2022-11-15 21:36:56 Test Item Value Reference Range Interpretation Comments POCT GLU (test code = 9562276974) 112 mg/dL 70-110 H Lab Interpretation (test code = Abnormal 82816-7) [facility] GLUCOSE (AUTOMATED)2022-11-15 16:53:32 Test Item Value Reference Range Interpretation Comments POCT GLU (test code = 3959599112) 126 mg/dL 70-110 H Lab Interpretation (test code = Abnormal 95413-3) [facility] GLUCOSE (AUTOMATED)2022-11-15 12:32:54 Test Item Value Reference Range Interpretation Comments POCT GLU (test code = 1380139077) 131 mg/dL 70-110 H Lab Interpretation (test code = Abnormal 40444-1) [facility] GLUCOSE (AUTOMATED)2022-11-15 01:18:23 Test Item Value Reference Range Interpretation Comments POCT GLU (test code = 3341637489) 128 mg/dL 70-110 H Lab Interpretation (test code = Abnormal 34105-2) [facility] GLUCOSE (AUTOMATED)2022-11-14 21:36:54 Test Item Value Reference Range Interpretation Comments POCT GLU (test code = 2323977270) 107 mg/dL 70-110 Lab Interpretation (test code = Normal 10385-9) [facility] GLUCOSE (AUTOMATED)2022-11-14 16:35:19 Test Item Value Reference Range Interpretation Comments POCT GLU (test code = 6539798221) 141 mg/dL 70-110 H Lab Interpretation (test code = Abnormal 99121-7) [facility] GLUCOSE (AUTOMATED)2022-11-14 13:00:00 Test Item Value Reference Range Interpretation Comments POCT GLU (test code = 7817549273) 122 mg/dL 70-110 H Lab Interpretation (test code = Abnormal 72067-6) [facility] GLUCOSE (AUTOMATED)2022-11-14 00:47:59 Test Item Value Reference Range Interpretation Comments POCT GLU (test code = 4303348217) 164 mg/dL 70-110 H Lab Interpretation (test code = Abnormal 76233-7) [facility] GLUCOSE (AUTOMATED)2022-11-13 21:40:50 Test Item Value Reference Range Interpretation Comments POCT GLU (test code = 5477040893) 103 mg/dL 70-110 Lab Interpretation (test code = Normal 75084-8) [facility] GLUCOSE (AUTOMATED)2022-11-13 16:48:30 Test Item Value Reference Range Interpretation Comments POCT GLU (test code = 7479460020) 126 mg/dL 70-110 H Lab Interpretation (test code = Abnormal 25049-2) [facility] GLUCOSE (AUTOMATED)2022-11-13 13:06:50 Test Item Value Reference Range Interpretation Comments POCT GLU (test code = 4233556596) 143 mg/dL 70-110 H Lab Interpretation (test code = Abnormal 60530-1) [facility] GLUCOSE (AUTOMATED)2022-11-13 01:43:00 Test Item Value Reference Range Interpretation Comments POCT GLU (test code = 6461904272) 125 mg/dL 70-110 H Lab Interpretation (test code = Abnormal 54286-8) [facility] GLUCOSE (AUTOMATED)2022-11-12 21:27:01 Test Item Value Reference Range Interpretation Comments POCT GLU (test code = 5059141993) 110 mg/dL 70-110 Lab Interpretation (test code = Normal 79203-3) [facility] METABOLIC PANEL (NA, K, CL, CO2, GLUCOSE, BUN, CREATININE, CA)2022-11-12 17:09:31 Test Item Value Reference Range Interpretation Comments NA (test code = 132 mmol/L 135-145 L 6301094250) K (test code = 3.9 mmol/L 3.5-5.0 9432882147) CL (test code = 100 mmol/L 98-108 5674058774) CO2 TOTAL (test code = 26 mmol/L 23-31 5095483206) AGAP (test code = 6 2-16 7397018274) BUN (test code = 8 mg/dL 7-23 1796816191) GLUCOSE (test code = 102 mg/dL 70-110 2428152444) CREATININE (test code = 0.50 mg/dL 0.60-1.25 L 6123446903) CALCIUM (test code = 7.6 mg/dL 8.6-10.6 L 2650747071) eGFR (test code = 163.0 mL/min/1.73m2 0102090765) SAUL (test code = SAUL) Association of Glomerular Filtration Rate (GFR) and Staging of Kidney Disease* + --+ --+ ------+| GFR (mL/min/1.73 m2) ?| With Kidney Damage ?| ?Without Kidney Damage+ --------+ --------+ +| ?>90 ?| ?Stage one ?| ? Normal ?+ ---+ ---+ -------+| ?60-89 ?| ?Stage two ?| ? Decreased GFR ? + --+ --+ ------+| ?30-59 ?| ?Stage three ?| ? Stage three ? + --+ --+ ------+| ?15-29 ?| ?Stage four ? | ? Stage four ?+ ---+ ---+ -------+| ?<15 (or dialysis) ? ?| ?Stage five ? | ? Stage five ?+ ---+ ---+ -------+ *Each stage assumes the associated GFR level has been in effect for at least three months. ?Stages 1 to 5, with or without kidney disease, indicate chronic kidney disease. Notes: Determination of stages one and two (with eGFR >59mL/min/1.73 m2) requires estimation of kidney damage for at least three months as defined by structural or functional abnormalities of the kidney, manifested by either:Pathological abnormalities or Markers of kidney damage (including abnormalities in the composition of the blood or urine or abnormalities in imaging tests). Lab Interpretation Abnormal (test code = 94272-1) [facility] 17:00:34 Test Item Value Reference Range Interpretation Comments MAGNESIUM (test code = 0213133458) 2.1 mg/dL 1.7-2.4 Lab Interpretation (test code = Normal 30940-2) [facility] 16:59:53 Test Item Value Reference Range Interpretation Comments PHOSPHORUS (test code = 6397431281) 2.5 mg/dL 2.5-5.0 Lab Interpretation (test code = Normal 83326-4) [facility] GLUCOSE (AUTOMATED)2022-11-12 16:50:20 Test Item Value Reference Range Interpretation Comments POCT GLU (test code = 6770609293) 174 mg/dL 70-110 H Lab Interpretation (test code = Abnormal 75995-1) [facility] GLUCOSE (AUTOMATED)2022-11-12 13:04:49 Test Item Value Reference Range Interpretation Comments POCT GLU (test code = 3114783179) 133 mg/dL 70-110 H Lab Interpretation (test code = Abnormal 05944-8) [facility] WITH [id number] 10:54:37 Test Item Value Reference Range Interpretation Comments WBC (test code = 12.04 See_Comment H [Automated 6690-2) message] The sy stem which generated this result transmitted reference range : 4.20 - 10.70 10*3/?L. The reference range was not used to interpret this result as normal/abnormal . RBC (test code = 2.88 See_Comment L [Automated 789-8) message] The sy stem which generated this result transmitted reference range : 4.26 - 5.52 10*6/?L. The reference range was not used to interpret this result as normal/abnormal . HGB (test code = 7.8 g/dL 12.2-16.4 L 718-7) HCT (test code = 24.2 % 38.4-49.3 L 4544-3) MCV (test code = 84.0 fL 81.7-95.6 787-2) MCH (test code = 27.1 pg 26.1-32.7 785-6) MCHC (test code = 32.2 g/dL 31.2-35.0 786-4) RDW-SD (test code = 44.9 fL 38.5-51.6 51396-5) RDW-CV (test code = 14.7 % 12.1-15.4 788-0) PLT (test code = 406 See_Comment H [Automated 777-3) message] The sy stem which generated this result transmitted reference range : 150 - 328 10*3/ ?L. The reference r ivelisse was not used to interpret this result as normal/abnormal . MPV (test code = 9.4 fL 9.8-13.0 L 15496-0) NRBC/100 WBC (test 0.2 See_Comment [Automat ed code = 7651404177) message] The system which generated this result transmitted reference range : 0.0 - 10.0 /100 WBCs. The refer ence range was not u sed to interpret th is result as normal/abnormal . NRBC x10^3 (test code 0.03 See_Comment [Auto mated = 1184631977) message] The s ystem which generated this result transmitted reference range : 10*3/?L. The reference range was not used to interpret this result as normal/abnormal . GRAN MAT (NEUT) % 60.3 % (test code = 770-8) IMM GRAN % (test code 7.50 % = 6592777407) LYMPH % (test code = 23.0 % 736-9) MONO % (test code = 5.6 % 5905-5) EOS % (test code = 3.1 % 713-8) BASO % (test code = 0.5 % 706-2) GRAN MAT x10^3(ANC) 7.26 10*3/uL 1.99-6.95 H (test code = 1199235955) IMM GRAN x10^3 (test 0.90 10*3/uL 0.00-0.06 H code = 7455729581) LYMPH x10^3 (test code 2.77 10*3/uL 1.09-3.23 = 731-0) MONO x10^3 (test code 0.68 10*3/uL 0.36-1.02 = 742-7) EOS x10^3 (test code = 0.37 10*3/uL 0.06-0.53 711-2) BASO x10^3 (test code 0.06 10*3/uL 0.01-0.09 = 704-7) Lab Interpretation Abnormal (test code = 05780-4) [facility] GLUCOSE (AUTOMATED)2022-11-12 01:22:54 Test Item Value Reference Range Interpretation Comments POCT GLU (test code = 1539991725) 145 mg/dL 70-110 H Lab Interpretation (test code = Abnormal 66738-6) [facility] GLUCOSE (AUTOMATED)2022-11-11 21:36:10 Test Item Value Reference Range Interpretation Comments POCT GLU (test code = 4538207308) 128 mg/dL 70-110 H Lab Interpretation (test code = Abnormal 39932-1) [facility] GLUCOSE (AUTOMATED)2022-11-11 16:47:47 Test Item Value Reference Range Interpretation Comments POCT GLU (test code = 7667886135) 155 mg/dL 70-110 H Lab Interpretation (test code = Abnormal 65935-4) [facility] GLUCOSE (AUTOMATED)2022-11-11 16:47:47 Test Item Value Reference Range Interpretation Comments POCT GLU (test code = 0837523106) 155 mg/dL 70-110 H Lab Interpretation (test code = Abnormal 16707-5) [facility] P[facility] RBC (in units), 1 Units 2022-11-11 16:16:40 Test Item Value Reference Range Interpretation Comments Cross Match Result Compatible (test code = 4409) ISBT Blood Type Code 5100 (test code = 490513) Unit Blood Type (test O Pos code = 4410) Unit Number (test [id number] code = 4411) Blood Expiration Date & Time (test code = 924954) Status Information Issued (test code = 4412) Product Red Blood Cells Identification (test code = 4413) Product Code (test [id number] Performed at [facility] code = 4414) Laboratory Services [facility] Blood [address] [place] [address]Sbgw Free: [phone] A No. [id number] [facility] Packed RBC (in units), 1 Units 2022-11-11 16:16:40 Test Item Value Reference Range Interpretation Comments Cross Match Result Compatible (test code = 4409) ISBT Blood Type Code 5100 (test code = 019721) Unit Blood Type (test O Pos code = 4410) Unit Number (test [id number] code = 4411) Blood Expiration Date [id number] & Time (test code = 339043) Status Information Issued (test code = 4412) Product Red Blood Cells Identification (test code = 4413) Product Code (test [id number] Performed at [facility] code = 4414) Laboratory [facility] Blood [address] [place] [address]Fwoo Free: [phone] A No. [id number] [facility] GLUCOSE (AUTOMATED)2022-11-11 13:13:52 Test Item Value Reference Range Interpretation Comments POCT GLU (test code = 9006699835) 126 mg/dL 70-110 H Lab Interpretation (test code = Abnormal 83948-2) [facility] GLUCOSE (AUTOMATED)2022-11-11 13:13:52 Test Item Value Reference Range Interpretation Comments POCT GLU (test code = 2380912922) 126 mg/dL 70-110 H Lab Interpretation (test code = Abnormal 37594-0) [facility] GLUCOSE (AUTOMATED)2022-11-10 21:17:09 Test Item Value Reference Range Interpretation Comments POCT GLU (test code = 2399515305) 159 mg/dL 70-110 H Lab Interpretation (test code = Abnormal 88296-3) [facility] GLUCOSE (AUTOMATED)2022-11-10 21:17:09 Test Item Value Reference Range Interpretation Comments POCT GLU (test code = 0661369195) 159 mg/dL 70-110 H Lab Interpretation (test code = Abnormal 02342-8) [facility]2023-09-17 18:53:21 Test Item Value Reference Range Interpretation Comments FOLATE SER (test code = 3716356310) 5.0 ng/mL 3.0-20.0 Lab Interpretation (test code = Normal 79964-4) [facility] 18:53:21 Test Item Value Reference Range Interpretation Comments FOLATE SER (test code = 8208084385) 5.0 ng/mL 3.0-20.0 Lab Interpretation (test code = Normal 38180-4) [facility] B12, [id number] 18:32:58 Test Item Value Reference Range Interpretation Comments VIT B12 (test code = 208 pg/mL 240-930 L 8476784902) SAUL (test code = SAUL) Biotin has been reported to cause a positive bias, interpret results relative to patient's use of biotin. Lab Interpretation (test Abnormal code = 53923-4) [facility] B12, [id number] 18:32:58 Test Item Value Reference Range Interpretation Comments VIT B12 (test code = 208 pg/mL 240-930 L 4217045806) SAUL (test code = SAUL) Biotin has been reported to cause a positive bias, interpret results relative to patient's use of biotin. Lab Interpretation (test Abnormal code = 11895-8) [facility] IRON BINDING [id number] 17:55:36 Test Item Value Reference Range Interpretation Comments TIBC (test code = [id number]) 153 ug/dL 250-410 L Lab Interpretation (test code = Abnormal 14783-7) [facility] [id number] 17:55:36 Test Item Value Reference Range Interpretation Comments TIBC (test code = 9079356831) 153 ug/dL 250-410 L Lab Interpretation (test code = Abnormal 23257-1) [facility] 17:16:57 Test Item Value Reference Range Interpretation Comments Procalcitonin (test 0.24 ng/mL <=0.07 H code = 0358122177) SAUL (test code = SAUL) INTERPRETATION OF PROCALCITONIN RESULTS IN ADULTS >= 18 YEARS OF AGE Initiation and discontinuation of antibiotics on patients with suspected or confirmed Lower Respiratory Tract Infection in Adults >= 18 years of age. + +-------- --------+ + -----+|Procalcitonin |Interpretation ?|Antibiotic ? ? |Considerations ? |ng/mL ? | ?|recommendation | ? + +-------- --------+ + -----+| <0.1 ? | Bacterial ? ? ?| Strongly ? ? ?| ? | ?| infection very | discouraged ? | Overruling: ? | ?| unlikely ? ? ? | ? | ? Clinically unstable ? ? ? + +-------- --------+ + ? High risk for adverse ? ? | <0.25 ?| Bacterial ? ? ?| Discouraged ? | ? outcome ? | ?| infection ? ? ?| ? | ? SEE IMPORTANT NOTE ?| ?| unlikely ? ? ? | ? | ? + +-------- --------+ + -----+| >=0.25 ? ? ? | Bacterial ? ? ?| Encouraged ? ?| ? | ?| infection ? ? ?| ? | ? | ?| likely ? | ? | Consider treatment failure ?+ +------- ---------+ -+ if levels does not decrease | >0.5 ? | Bacterial ? ? ?| Strongly ? ? ?| appropriately ? | ?| infection very | encouraged ? ?| ? | ?| likely ? | ? | ? + +-------- --------+ + -----+ Discontinuation of antibiotics in high-acuity patients with suspected or confirmed sepsis in Adults >= 18 years of age. + +-------- --------+ + -----+|Procalcitonin |Interpretation ?|Antibiotic ? ? |Considerations ? |ng/mL ? | ?|recommendation | ? + +-------- --------+ + -----+| <0.25 ?| Bacterial ? ? ?| Strongly ? ? ?| ? | ?| infection very | discouraged ? | Overruling: ? | ?| unlikely ? ? ? | ? | ? Clinically unstable ? ? ? + +-------- --------+ + ? High risk for adverse ? ? | <0.5 or drop | Bacterial ? ? ?| Discouraged ? | ? outcome ? | >80% from ? ?| infection ? ? ?| ? | ? SEE IMPORTANT NOTE ?| highest PCT ?| unlikely ? ? ? | ? | ? | level ?| ?| ? | ? + +-------- --------+ + -----+| >=0.5 ?| Bacterial ? ? ?| Encouraged ? ?| ? | ?| infection ? ? ?| ? | ? | ?| likely ? | ? | Consider treatment failure ?+ +------- ---------+ -+ if levels does not decrease | >1.0 ? | Bacterial ? ? ?| Strongly ? ? ?| appropriately ? | ?| infection very | encouraged ? ?| ? | ?| likely ? | ? | ? + +-------- --------+ + -----+ Percentage of drop of Procalcitonin calculation for Discontinuation of antibiotics in high-acuity patients with suspected or confirmed sepsis in Adults >= 18 years of age. ? Procalcitonin highest{}-Procalcitonin current{}Delta Procalcitonin = x100% ? Procalcitonin current {} IMPORTANT NOTE: Procalcitonin may be elevated without bacterial infection by physiologic stress related to trauma, alexander, chronic dialysis, metastatic cancer, surgery in the past seven days, malaria, some fungal infections, and some forms of vasculitis. The interpretation algorithm may not apply to patients with immunosuppression (equivalent of >10 mg of prednisone daily), HIV with CD4 cell count < 350 cells/mm3, active malignancy on systemic chemotherapy, solid organ transplant or hematopoietic stem cell transplantation, or hospital acquired pneumonia. Additionally, some clinical trials of procalcitonin have excluded patients with shock requiring vasopressor use, acute respiratory failure requiring mechanical ventilation, or those with known lung abscess/empyema. For further information please refer to:[email or web address] Lab Interpretation Abnormal (test code = 39952-9) [facility] 17:16:57 Test Item Value Reference Range Interpretation Comments Procalcitonin (test 0.24 ng/mL <=0.07 H code = 9416429292) SAUL (test code = SAUL) INTERPRETATION OF PROCALCITONIN RESULTS IN ADULTS >= 18 YEARS OF AGE Initiation and discontinuation of antibiotics on patients with suspected or confirmed Lower Respiratory Tract Infection in Adults >= 18 years of age. + +-------- --------+ + -----+|Procalcitonin |Interpretation ?|Antibiotic ? ? |Considerations ? |ng/mL ? | ?|recommendation | ? + +-------- --------+ + -----+| <0.1 ? | Bacterial ? ? ?| Strongly ? ? ?| ? | ?| infection very | discouraged ? | Overruling: ? | ?| unlikely ? ? ? | ? | ? Clinically unstable ? ? ? + +-------- --------+ + ? High risk for adverse ? ? | <0.25 ?| Bacterial ? ? ?| Discouraged ? | ? outcome ? | ?| infection ? ? ?| ? | ? SEE IMPORTANT NOTE ?| ?| unlikely ? ? ? | ? | ? + +-------- --------+ + -----+| >=0.25 ? ? ? | Bacterial ? ? ?| Encouraged ? ?| ? | ?| infection ? ? ?| ? | ? | ?| likely ? | ? | Consider treatment failure ?+ +------- ---------+ -+ if levels does not decrease | >0.5 ? | Bacterial ? ? ?| Strongly ? ? ?| appropriately ? | ?| infection very | encouraged ? ?| ? | ?| likely ? | ? | ? + +-------- --------+ + -----+ Discontinuation of antibiotics in high-acuity patients with suspected or confirmed sepsis in Adults >= 18 years of age. + +-------- --------+ + -----+|Procalcitonin |Interpretation ?|Antibiotic ? ? |Considerations ? |ng/mL ? | ?|recommendation | ? + +-------- --------+ + -----+| <0.25 ?| Bacterial ? ? ?| Strongly ? ? ?| ? | ?| infection very | discouraged ? | Overruling: ? | ?| unlikely ? ? ? | ? | ? Clinically unstable ? ? ? + +-------- --------+ + ? High risk for adverse ? ? | <0.5 or drop | Bacterial ? ? ?| Discouraged ? | ? outcome ? | >80% from ? ?| infection ? ? ?| ? | ? SEE IMPORTANT NOTE ?| highest PCT ?| unlikely ? ? ? | ? | ? | level ?| ?| ? | ? + +-------- --------+ + -----+| >=0.5 ?| Bacterial ? ? ?| Encouraged ? ?| ? | ?| infection ? ? ?| ? | ? | ?| likely ? | ? | Consider treatment failure ?+ +------- ---------+ -+ if levels does not decrease | >1.0 ? | Bacterial ? ? ?| Strongly ? ? ?| appropriately ? | ?| infection very | encouraged ? ?| ? | ?| likely ? | ? | ? + +-------- --------+ + -----+ Percentage of drop of Procalcitonin calculation for Discontinuation of antibiotics in high-acuity patients with suspected or confirmed sepsis in Adults >= 18 years of age. ? Procalcitonin highest{}-Procalcitonin current{}Delta Procalcitonin = x100% ? Procalcitonin current {} IMPORTANT NOTE: Procalcitonin may be elevated without bacterial infection by physiologic stress related to trauma, alexander, chronic dialysis, metastatic cancer, surgery in the past seven days, malaria, some fungal infections, and some forms of vasculitis. The interpretation algorithm may not apply to patients with immunosuppression (equivalent of >10 mg of prednisone daily), HIV with CD4 cell count < 350 cells/mm3, active malignancy on systemic chemotherapy, solid organ transplant or hematopoietic stem cell transplantation, or hospital acquired pneumonia. Additionally, some clinical trials of procalcitonin have excluded patients with shock requiring vasopressor use, acute respiratory failure requiring mechanical ventilation, or those with known lung abscess/empyema. For further information please refer to:[email or web address] Lab Interpretation Abnormal (test code = 03112-0) [facility]2022-11-10 15:50:57 Test Item Value Reference Range Interpretation Comments Height (test code = 72 in 4791680783) Weight (test code = 228 lbs 8260569465) Systolic BP (test code 96 mmHg = 6027747260) Diastolic BP (test code 46 mmHg = 2100771160) Heart Rate (test code = 80 bpm 0483524622) Ao root diam (test code 3.70 cm = 9745613209) Aortic root (test code 3.7 cm = 8795159421) Ao root annulus (test 3.7 cm code = 8468119664) BSA (test code = 2.25 m2 6290018857) LVOT diameter (test 1.92 cm code = 4323167880) LVOT area (test code = 2.90 cm2 8061510951) LA size (test code = 4.4 cm 4151595209) ACS (test code = 2.09 cm 1574783211) PV PEAK VELOCITY (test 115.3 cm/s code = 2583340476) PV peak gradient (test 5.3 mmHg code = 8400808459) LAV(MOD-sp4) (test code 41.70 mL = 6168238538) MV E-F slope (test code 52.60 cm/s = 5724278066) MV Peak E Toshia (test 92.8 cm/s code = 3210452747) MV valve area p 1/2 3.40 cm2 method (test code = 9720046953) MV dec slope (test code 414.80 cm/s2 = 3967575639) MV P1/2t max toshia (test 92.80 cm/s code = 2141785429) MV Peak A Toshia (test 102.2 cm/s code = 7291365732) E/A ratio (test code = 0.91 ratio 3840443587) LVOT stroke volume 79.80 cm3 (test code = 1469440708) LVOT peak toshia (test 134.7 cm/s code = 8242097401) LVOT mn grad (test code 3.0 mmHg = 9755661506) AV LVOT peak gradient 7.3 mmHg (test code = 5179447326) LVOT peak VTI (test 27.5 cm code = 5430098760) LV V1 mean (test code = 78.10 cm/s 5766333070) Aortic valve mean 131.0 cm/s velocity (test code = 3644638390) Ao peak toshia (test code 227.8 cm/s = 1705083493) Ao VTI (test code = 40.1 cm 3982948070) AV area by cont VTI 2.0 cm2 (test code = 4405157938) AV area peak toshia (test 1.7 cm2 code = 2704511702) Ao max PG (test code = 20.80 mm[Hg] 9728520439) AV peak gradient (test 20.8 mmHg code = 2207374335) AV valve area (test 1.99 cm2 code = 9710318800) AV mean gradient (test 8.4 mmHg code = 5134063739) TR Peak Toshia (test code 221.4 cm/s = 8355998617) Triscuspid Valve 19.6 mmHg Regurgitation Peak Gradient (test code = 0792006336) LVIDD (test code = 5.60 cm 1368154555) Left Ventricular End 152.6 mL Diastolic Volume by Teichholz Method (test code = 1353724) IVS (test code = 1.25 cm 6602340150) Interventricular Septum 1.25 cm Diastolic Thickness by 2D (test code = 3349462) LVPWD (test code = 1.25 cm 0686501568) PW (test code = 1.25 cm 0.6-1.4 9179820926) EF(Teich) (test code = 56.00 % 8057300807) LVIDS (test code = 3.90 cm 3014452363) Left Ventricular End 67.2 mL Systolic Volume by Teichholz Method (test code = 5097374) FS (test code = 30 % 5794077859) EF - 2D (test code = 56.00 % 07218415) LA Volume Index (BP) 17.4 mL/m2 (test code = 1463575395) LA volume (BP) (test 39.2 mL code = 2101654449) LAV(MOD-sp2) (test code 27.90 mL = 7325494248) Radiology Study observation (narrative) (test code = 82534-0) SAUL (test code = SAUL) ?Left?Ventricle: Left ventricle size is normal. Mildly increased wall thickness. Septal motion is consistent with post-operative status. . Normal systolic function with a visually estimated EF of 55 - 60%. There is impaired relaxation. Normal left ventricular filling pressure. ?Tricuspid?Valve: Trace transvalvular regurgitation. Right ventricular systolic pressure is 15-20 mmHg. ?RA pressure is 0-5 mmHg. ?Left?Atrium: Left atrium is mildly dilated. ?Aortic?Valve: Tricuspid. Moderately calcified cusps. No hemodynamically significant . AV mean gradient is 8.4 mmHg. ?Aorta: Mildly to moderately enlarged ascending aorta 3.8-4.0cm. Mildly enlarged aortic root. Left VentricleLeft ventricle size is normal. Mildly increased wall thickness. Septal motion is consistent with post-operative status. . Normal systolic function with a visually estimated EF of 55 - 60%. There is impaired relaxation. Normal left ventricular filling pressure.Right VentricleRight ventricle size is normal. Normal systolic function.Left AtriumLeft atrium is mildly dilated.Right AtriumRight atrium size is normal.IVC/SVCRA pressure is 0-5 mmHg.Mitral ValveMildly calcified leaflets. Mild mitral annular calcification. Trace transvalvular regurgitation.Tricuspi d ValveTricuspid valve structure is grossly normal. Trace transvalvular regurgitation. Right ventricular systolic pressure is 15-20 mmHg. RA pressure is 0-5 mmHg.Aortic ValveTricuspid. Moderately calcified cusps. No hemodynamically significant . AV mean gradient is 8.4 mmHg.Pulmonic ValveNot well visualized.Ascending AortaMildly to moderately enlarged ascending aorta 3.8-4.0cm. Mildly enlarged aortic root.PericardiumNo pericardial effusion.Study DetailsStudy quality was adequate. A complete echocardiogram was performed using 2D, color flow Doppler and spectral Doppler. 5 mL of Lumason ultrasound enhancing agent used. [facility] [id number] 14:36:30 Test Item Value Reference Range Interpretation Comments FERRITIN (test code = 337.0 ng/mL 18.0-464.0 0247182562) SAUL (test code = SAUL) Biotin has been reported to cause a negative bias, interpret results relative to patient's use of biotin. Lab Interpretation (test Normal code = 34775-7) [facility] [id number] 14:36:30 Test Item Value Reference Range Interpretation Comments FERRITIN (test code = 337.0 ng/mL 18.0-464.0 1285383284) SAUL (test code = SAUL) Biotin has been reported to cause a negative bias, interpret results relative to patient's use of biotin. Lab Interpretation (test Normal code = 06366-5) [place] [id number] 14:00:28 Test Item Value Reference Range Interpretation Comments IRON (test code = 3915820095) 29 ug/dL 50-160 L Lab Interpretation (test code = Abnormal 14156-0) [place] [id number] 14:00:28 Test Item Value Reference Range Interpretation Comments IRON (test code = 6282986736) 29 ug/dL 50-160 L Lab Interpretation (test code = Abnormal 86442-8) [facility] GLUCOSE (AUTOMATED)2022-11-10 12:48:07 Test Item Value Reference Range Interpretation Comments POCT GLU (test code = 5536615161) 102 mg/dL 70-110 Lab Interpretation (test code = Normal 67332-9) [facility] GLUCOSE (AUTOMATED)2022-11-10 12:48:07 Test Item Value Reference Range Interpretation Comments POCT GLU (test code = 0790192195) 102 mg/dL 70-110 Lab Interpretation (test code = Normal 70601-5) [facility] Metabolic Panel (NA, K, CL, CO2, GLUCOSE, BUN, CREATININE, CA)2022-11-10 10:31:38 Test Item Value Reference Range Interpretation Comments NA (test code = 130 mmol/L 135-145 L 0490913942) K (test code = 3.9 mmol/L 3.5-5.0 1350815749) CL (test code = 102 mmol/L 98-108 5803207691) CO2 TOTAL (test code = 22 mmol/L 23-31 L 6334204829) AGAP (test code = 6 2-16 3142021945) BUN (test code = 10 mg/dL 7-23 5968348631) GLUCOSE (test code = 99 mg/dL 70-110 8090930157) CREATININE (test code = 0.71 mg/dL 0.60-1.25 8328020914) CALCIUM (test code = 7.2 mg/dL 8.6-10.6 L 0814832027) eGFR (test code = 108.8 mL/min/1.73m2 4040008344) SAUL (test code = SAUL) Association of Glomerular Filtration Rate (GFR) and Staging of Kidney Disease* + --+ --+ ------+| GFR (mL/min/1.73 m2) ?| With Kidney Damage ?| ?Without Kidney Damage+ --------+ --------+ +| ?>90 ?| ?Stage one ?| ? Normal ?+ ---+ ---+ -------+| ?60-89 ?| ?Stage two ?| ? Decreased GFR ? + --+ --+ ------+| ?30-59 ?| ?Stage three ?| ? Stage three ? + --+ --+ ------+| ?15-29 ?| ?Stage four ? | ? Stage four ?+ ---+ ---+ -------+| ?<15 (or dialysis) ? ?| ?Stage five ? | ? Stage five ?+ ---+ ---+ -------+ *Each stage assumes the associated GFR level has been in effect for at least three months. ?Stages 1 to 5, with or without kidney disease, indicate chronic kidney disease. Notes: Determination of stages one and two (with eGFR >59mL/min/1.73 m2) requires estimation of kidney damage for at least three months as defined by structural or functional abnormalities of the kidney, manifested by either:Pathological abnormalities or Markers of kidney damage (including abnormalities in the composition of the blood or urine or abnormalities in imaging tests). Lab Interpretation Abnormal (test code = 92015-9) [facility] Metabolic Panel (NA, K, CL, CO2, GLUCOSE, BUN, CREATININE, CA)2022-11-10 10:31:38 Test Item Value Reference Range Interpretation Comments NA (test code = 130 mmol/L 135-145 L 6299270484) K (test code = 3.9 mmol/L 3.5-5.0 5998327658) CL (test code = 102 mmol/L 98-108 5044560944) CO2 TOTAL (test code = 22 mmol/L 23-31 L 6392130752) AGAP (test code = 6 2-16 5695707678) BUN (test code = 10 mg/dL 7-23 0963935468) GLUCOSE (test code = 99 mg/dL 70-110 6189729313) CREATININE (test code = 0.71 mg/dL 0.60-1.25 2237450421) CALCIUM (test code = 7.2 mg/dL 8.6-10.6 L 2419427753) eGFR (test code = 108.8 mL/min/1.73m2 8904631831) SAUL (test code = SAUL) Association of Glomerular Filtration Rate (GFR) and Staging of Kidney Disease* + --+ --+ ------+| GFR (mL/min/1.73 m2) ?| With Kidney Damage ?| ?Without Kidney Damage+ --------+ --------+ +| ?>90 ?| ?Stage one ?| ? Normal ?+ ---+ ---+ -------+| ?60-89 ?| ?Stage two ?| ? Decreased GFR ? + --+ --+ ------+| ?30-59 ?| ?Stage three ?| ? Stage three ? + --+ --+ ------+| ?15-29 ?| ?Stage four ? | ? Stage four ?+ ---+ ---+ -------+| ?<15 (or dialysis) ? ?| ?Stage five ? | ? Stage five ?+ ---+ ---+ -------+ *Each stage assumes the associated GFR level has been in effect for at least three months. ?Stages 1 to 5, with or without kidney disease, indicate chronic kidney disease. Notes: Determination of stages one and two (with eGFR >59mL/min/1.73 m2) requires estimation of kidney damage for at least three months as defined by structural or functional abnormalities of the kidney, manifested by either:Pathological abnormalities or Markers of kidney damage (including abnormalities in the composition of the blood or urine or abnormalities in imaging tests). Lab Interpretation Abnormal (test code = 92137-9) [facility] [id number] 09:42:48 Test Item Value Reference Range Interpretation Comments MAGNESIUM (test code = 3420028023) 2.0 mg/dL 1.7-2.4 Lab Interpretation (test code = Normal 74151-6) [facility] [id number] 09:42:48 Test Item Value Reference Range Interpretation Comments MAGNESIUM (test code = 5595533049) 2.0 mg/dL 1.7-2.4 Lab Interpretation (test code = Normal 58816-0) [facility] acute hospital with [id number] 09:27:49 Test Item Value Reference Range Interpretation Comments WBC (test code = 13.49 See_Comment H [Automated 6690-2) message] The sy stem which generated this result transmitted reference range : 4.20 - 10.70 10*3/?L. The reference range was not used to interpret this result as normal/abnormal . RBC (test code = 3.30 See_Comment L [Automated 519-8) message] The sy stem which generated this result transmitted reference range : 4.26 - 5.52 10*6/?L. The reference range was not used to interpret this result as normal/abnormal . HGB (test code = 8.7 g/dL 12.2-16.4 L 718-7) HCT (test code = 27.1 % 38.4-49.3 L 4544-3) MCV (test code = 82.1 fL 81.7-95.6 787-2) MCH (test code = 26.4 pg 26.1-32.7 785-6) MCHC (test code = 32.1 g/dL 31.2-35.0 786-4) RDW-SD (test code = 44.9 fL 38.5-51.6 48007-2) RDW-CV (test code = 14.9 % 12.1-15.4 788-0) PLT (test code = 364 See_Comment H [Automated 777-3) message] The sy stem which generated this result transmitted reference range : 150 - 328 10*3/ ?L. The reference r ivelisse was not used to interpret this result as normal/abnormal . MPV (test code = 9.2 fL 9.8-13.0 L 18208-0) NRBC/100 WBC (test 0.0 See_Comment [Automat ed code = 1928024354) message] The system which generated this result transmitted reference range : 0.0 - 10.0 /100 WBCs. The refer ence range was not u sed to interpret th is result as normal/abnormal . NRBC x10^3 (test code See_Comment [Auto mated = 0142099008) message] The s ystem which generated this result transmitted reference range : 10*3/?L. The reference range was not used to interpret this result as normal/abnormal . GRAN MAT (NEUT) % 71.1 % (test code = 770-8) IMM GRAN % (test code 2.10 % = 8638534070) LYMPH % (test code = 17.3 % 736-9) MONO % (test code = 7.1 % 5905-5) EOS % (test code = 1.9 % 713-8) BASO % (test code = 0.5 % 706-2) GRAN MAT x10^3(ANC) 9.59 10*3/uL 1.99-6.95 H (test code = 1158900636) IMM GRAN x10^3 (test 0.28 10*3/uL 0.00-0.06 H code = 0023815015) LYMPH x10^3 (test code 2.33 10*3/uL 1.09-3.23 = 731-0) MONO x10^3 (test code 0.96 10*3/uL 0.36-1.02 = 742-7) EOS x10^3 (test code = 0.26 10*3/uL 0.06-0.53 711-2) BASO x10^3 (test code 0.07 10*3/uL 0.01-0.09 = 704-7) Lab Interpretation Abnormal (test code = 56279-3) General acute hospital with [id number] 09:27:49 Test Item Value Reference Range Interpretation Comments WBC (test code = 13.49 See_Comment H [Automated 6690-2) message] The sy stem which generated this result transmitted reference range : 4.20 - 10.70 10*3/?L. The reference range was not used to interpret this result as normal/abnormal . RBC (test code = 3.30 See_Comment L [Automated 789-8) message] The sy stem which generated this result transmitted reference range : 4.26 - 5.52 10*6/?L. The reference range was not used to interpret this result as normal/abnormal . HGB (test code = 8.7 g/dL 12.2-16.4 L 718-7) HCT (test code = 27.1 % 38.4-49.3 L 4544-3) MCV (test code = 82.1 fL 81.7-95.6 787-2) MCH (test code = 26.4 pg 26.1-32.7 785-6) MCHC (test code = 32.1 g/dL 31.2-35.0 786-4) RDW-SD (test code = 44.9 fL 38.5-51.6 97210-0) RDW-CV (test code = 14.9 % 12.1-15.4 788-0) PLT (test code = 364 See_Comment H [Automated 777-3) message] The sy stem which generated this result transmitted reference range : 150 - 328 10*3/ ?L. The reference r ivelisse was not used to interpret this result as normal/abnormal . MPV (test code = 9.2 fL 9.8-13.0 L 74743-8) NRBC/100 WBC (test 0.0 See_Comment [Automat ed code = 6253799044) message] The system which generated this result transmitted reference range : 0.0 - 10.0 /100 WBCs. The refer ence range was not u sed to interpret th is result as normal/abnormal . NRBC x10^3 (test code See_Comment [Auto mated = 8970623755) message] The s ystem which generated this result transmitted reference range : 10*3/?L. The reference range was not used to interpret this result as normal/abnormal . GRAN MAT (NEUT) % 71.1 % (test code = 770-8) IMM GRAN % (test code 2.10 % = 9037253898) LYMPH % (test code = 17.3 % 736-9) MONO % (test code = 7.1 % 5905-5) EOS % (test code = 1.9 % 713-8) BASO % (test code = 0.5 % 706-2) GRAN MAT x10^3(ANC) 9.59 10*3/uL 1.99-6.95 H (test code = 0942210971) IMM GRAN x10^3 (test 0.28 10*3/uL 0.00-0.06 H code = 6323217302) LYMPH x10^3 (test code 2.33 10*3/uL 1.09-3.23 = 731-0) MONO x10^3 (test code 0.96 10*3/uL 0.36-1.02 = 742-7) EOS x10^3 (test code = 0.26 10*3/uL 0.06-0.53 711-2) BASO x10^3 (test code 0.07 10*3/uL 0.01-0.09 = 704-7) Lab Interpretation Abnormal (test code = 99167-5) [facility] [id number] 01:09:14 Test Item Value Reference Range Interpretation Comments LACTIC ACID (test code = 1.09 mmol/L 0.50-2.20 0691495570) Lab Interpretation (test code = Normal 08679-0) [facility] [id number] 01:09:14 Test Item Value Reference Range Interpretation Comments LACTIC ACID (test code = 1.09 mmol/L 0.50-2.20 4709875739) Lab Interpretation (test code = Normal 35020-2) [facility] [id number] 22:39:00 Test Item Value Reference Range Interpretation Comments LACTIC ACID (test code = 3.09 mmol/L 0.50-2.20 H 5733099189) Lab Interpretation (test code = Abnormal 53759-7) [facility] [id number] 22:39:00 Test Item Value Reference Range Interpretation Comments LACTIC ACID (test code = 3.09 mmol/L 0.50-2.20 H 0492801155) Lab Interpretation (test code = Abnormal 96034-6) [facility] Conf[facility] (Lab Only)2022-03-28 19:03:29 Test Item Value Reference Range Interpretation Comments ABO & RH (test code O Positive Performe d at [place] = 20) Laboratory Serv [facility] [place] [address] Free: [phone] A No. [id number] [facility] and Screen - ONCE [id number] 18:56:06 Test Item Value Reference Range Interpretation Comments ABO & RH (test code O Positive Performe d at [facility] = 20) Laboratory [facility] [place], [place] [address]Toll Free: [phone] A No. [id number] IAT (test code = Negative Performed a t [facility] 1185) Laboratory [facility] [address] [place], [place] [address]Toll Free: [phone] A No. [id number] [facility] WITH [id number] 18:53:46 Test Item Value Reference Range Interpretation Comments WBC (test code = 13.68 See_Comment H [Automated 9718-2) message] The sy stem which generated this result transmitted reference range : 4.20 - 10.70 10*3/?L. The reference range was not used to interpret this result as normal/abnormal . RBC (test code = 4.08 See_Comment L [Automated 9-8) message] The sy stem which generated this result transmitted reference range : 4.26 - 5.52 10*6/?L. The reference range was not used to interpret this result as normal/abnormal . HGB (test code = 11.3 g/dL 12.2-16.4 L 718-7) HCT (test code = 34.9 % 38.4-49.3 L 4544-3) MCV (test code = 85.5 fL 81.7-95.6 787-2) MCH (test code = 27.7 pg 26.1-32.7 785-6) MCHC (test code = 32.4 g/dL 31.2-35.0 786-4) RDW-SD (test code = 49.2 fL 38.5-51.6 70649-1) RDW-CV (test code = 16.0 % 12.1-15.4 H 788-0) PLT (test code = 279 See_Comment [Automated 777-3) message] The sy stem which generated this result transmitted reference range : 150 - 328 10*3/ ?L. The reference r ivelisse was not used to interpret this result as normal/abnormal . MPV (test code = 9.7 fL 9.8-13.0 L 30266-6) NRBC/100 WBC (test 0.0 See_Comment [Automat ed code = 8370584178) message] The system which generated this result transmitted reference range : 0.0 - 10.0 /100 WBCs. The refer ence range was not u sed to interpret th is result as normal/abnormal . NRBC x10^3 (test code See_Comment [Auto mated = 7636322553) message] The s ystem which generated this result transmitted reference range : 10*3/?L. The reference range was not used to interpret this result as normal/abnormal . GRAN MAT (NEUT) % 70.2 % (test code = 770-8) IMM GRAN % (test code 0.70 % = 5975594638) LYMPH % (test code = 15.4 % 736-9) MONO % (test code = 9.1 % 5905-5) EOS % (test code = 3.9 % 713-8) BASO % (test code = 0.7 % 706-2) GRAN MAT x10^3(ANC) 9.60 10*3/uL 1.99-6.95 H (test code = 1098834073) IMM GRAN x10^3 (test 0.10 10*3/uL 0.00-0.06 H code = 8433342491) LYMPH x10^3 (test code 2.10 10*3/uL 1.09-3.23 = 731-0) MONO x10^3 (test code 1.24 10*3/uL 0.36-1.02 H = 742-7) EOS x10^3 (test code = 0.54 10*3/uL 0.06-0.53 H 711-2) BASO x10^3 (test code 0.10 10*3/uL 0.01-0.09 H = 704-7) Lab Interpretation Abnormal (test code = 62945-0) [facility]. METABOLIC PANEL ([id number])2022-03-28 18:26:38 Test Item Value Reference Range Interpretation Comments NA (test code = 135 mmol/L 135-145 9931262492) K (test code = 4.5 mmol/L 3.5-5.0 1101118291) CL (test code = 101 mmol/L 98-108 3214082591) CO2 TOTAL (test code = 27 mmol/L 23-31 1271054539) AGAP (test code = 7 2-16 1094838260) BUN (test code = 14 mg/dL 7-23 8091562674) GLUCOSE (test code = 101 mg/dL 70-110 9696916296) CREATININE (test code = 0.60 mg/dL 0.60-1.25 8437464847) TOTAL BILI (test code = 0.8 mg/dL 0.1-1.3 9932420325) CALCIUM (test code = 8.2 mg/dL 8.6-10.6 L 6883532200) T PROTEIN (test code = 6.6 g/dL 6.3-8.2 9840696642) ALBUMIN (test code = 3.6 g/dL 3.5-5.0 6668608881) ALK PHOS (test code = 87 U/L 34-122 4479084240) ALTv (test code = 18 U/L 5-50 1742-6) AST(SGOT) (test code = 30 U/L 13-40 7387841739) eGFR (test code = 132.1 mL/min/1.73m2 6776003222) SAUL (test code = SAUL) Association of Glomerular Filtration Rate (GFR) and Staging of Kidney Disease* + --+ --+ ------+| GFR (mL/min/1.73 m2) ?| With Kidney Damage ?| ?Without Kidney Damage+ --------+ --------+ +| ?>90 ?| ?Stage one ?| ? Normal ?+ ---+ ---+ -------+| ?60-89 ?| ?Stage two ?| ? Decreased GFR ? + --+ --+ ------+| ?30-59 ?| ?Stage three ?| ? Stage three ? + --+ --+ ------+| ?15-29 ?| ?Stage four ? | ? Stage four ?+ ---+ ---+ -------+| ?<15 (or dialysis) ? ?| ?Stage five ? | ? Stage five ?+ ---+ ---+ -------+ *Each stage assumes the associated GFR level has been in effect for at least three months. ?Stages 1 to 5, with or without kidney disease, indicate chronic kidney disease. Notes: Determination of stages one and two (with eGFR >59mL/min/1.73 m2) requires estimation of kidney damage for at least three months as defined by structural or functional abnormalities of the kidney, manifested by either:Pathological abnormalities or Markers of kidney damage (including abnormalities in the composition of the blood or urine or abnormalities in imaging tests). Lab Interpretation Abnormal (test code = 05914-7) [facility] [id number] 15:34:18 Test Item Value Reference Interpretation Comments Range TROPONIN I (test 0.004 ng/mL See_Comment [Automated code = 5274140202) message] The system which generated this result transmitted reference range : <=0.034. The reference range was not used to interpret this result as normal/abnormal . SAUL (test code = Reference (Normal) SAUL) Range (defined by the 99th percentile reference limit): <= 0.034 ng/mL Note: Cardiac troponin begins to rise 3-4 hours after the onset of ischemia. Repeat in 4-6 hours if the sample was drawn within 3-4 hours of the onset of the symptom and found normal. Diagnosis of myocardial injury is made with acute changes in cTn concentrations with at least one serial sample above the 99th percentile upper reference limit (URL), taken together with the patient's clinical presentation. Biotin has been reported to cause a negative bias, interpret results relative to patient's use of biotin. Lab Interpretation Normal (test code = 14392-2) [facility]MINAL [id number] 15:29:24 Test Item Value Reference Range Interpretation Comments NT-proBNP (test code 89 pg/mL See_Comment [Autom ated = 7604232313) message] The system which generated this result transmitted reference range : <=125. The reference range was not used to interpret this result as normal/abnormal . SAUL (test code = SAUL) Biotin has been reported to cause a negative bias, interpret results relative to patient's use of biotin. Lab Interpretation Normal (test code = 16633-7) [facility] METABOLIC PANEL (22714)2022-02-11 15:21:04 Test Item Value Reference Range Interpretation Comments NA (test code = 130 mmol/L 135-145 L 5198232905) K (test code = 4.3 mmol/L 3.5-5.0 0876700223) CL (test code = 97 mmol/L 98-108 L 1942509362) CO2 TOTAL (test code = 28 mmol/L 23-31 4077979569) AGAP (test code = 2-16 6971258324) BUN (test code = 11 mg/dL 7-23 1027437334) GLUCOSE (test code = 123 mg/dL 70-110 H 3218780505) CREATININE (test code = 0.73 mg/dL 0.60-1.25 9719771032) TOTAL BILI (test code = 0.8 mg/dL 0.1-1.4 6958668671) CALCIUM (test code = 8.5 mg/dL 8.6-10.6 L 3732551398) T PROTEIN (test code = 6.3 g/dL 6.3-8.2 7174986919) ALBUMIN (test code = 3.7 g/dL 3.5-5.0 1939925483) ALK PHOS (test code = 111 U/L 34-122 8740265022) ALTv (test code = 17 U/L 5-50 1742-6) AST(SGOT) (test code = 24 U/L 13-40 4572241498) eGFR (test code = mL/min/1.73m2 7672957235) SAUL (test code = SAUL) Association of Glomerular Filtration Rate (GFR) and Staging of Kidney Disease* + --+ --+ ------+| GFR (mL/min/1.73 m2) ?| With Kidney Damage ?| ?Without Kidney Damage+ --------+ --------+ +| ?>90 ?| ?Stage one ?| ? Normal ?+ ---+ ---+ -------+| ?60-89 ?| ?Stage two ?| ? Decreased GFR ? + --+ --+ ------+| ?30-59 ?| ?Stage three ?| ? Stage three ? + --+ --+ ------+| ?15-29 ?| ?Stage four ? | ? Stage four ?+ ---+ ---+ -------+| ?<15 (or dialysis) ? ?| ?Stage five ? | ? Stage five ?+ ---+ ---+ -------+ *Each stage assumes the associated GFR level has been in effect for at least three months. ?Stages 1 to 5, with or without kidney disease, indicate chronic kidney disease. Notes: Determination of stages one and two (with eGFR >59mL/min/1.73 m2) requires estimation of kidney damage for at least three months as defined by structural or functional abnormalities of the kidney, manifested by either:Pathological abnormalities or Markers of kidney damage (including abnormalities in the composition of the blood or urine or abnormalities in imaging tests). Lab Interpretation Abnormal (test code = 21338-3) [facility]HROM[facility] TIME / [id number] 15:19:06 Test Item Value Reference Range Interpretation Comments PROTIME PATIENT (test See_Comment [Auto mated message] code = 5964-2) The system [employer] generated this result transmitted ref erence range: 12.0 - 1 4.7 Seconds. The re ference range was not u sed to interpret this result as normal/abnor mal. INR (test code = 6301-6) Nor mal INR <1.1; Warfarin Therap eutic range 2.0 to 3. 0 or 2.5 to 3.5, dep ending upon the indica tions. Lab Interpretation (test Normal code = 37659-2) [facility] WITH [id number] 15:09:28 Test Item Value Reference Range Interpretation Comments WBC (test code = See_Comment [Automated 9590-2) message] The sy stem which generated this result transmitted reference range : 4.20 - 10.70 10*3/?L. The reference range was not used to interpret this result as normal/abnormal . RBC (test code = See_Comment [Automated 789-8) message] The sy stem which generated this result transmitted reference range : 4.26 - 5.52 10*6/?L. The reference range was not used to interpret this result as normal/abnormal . HGB (test code = 12.2 g/dL 12.2-16.4 718-7) HCT (test code = 37.0 % 38.4-49.3 L 4544-3) MCV (test code = 85.1 fL 81.7-95.6 787-2) MCH (test code = 28.0 pg 26.1-32.7 785-6) MCHC (test code = 33.0 g/dL 31.2-35.0 786-4) RDW-SD (test code = 42.7 fL 38.5-51.6 99374-4) RDW-CV (test code = 13.7 % 12.1-15.4 788-0) PLT (test code = See_Comment [Automated 777-3) message] The sy stem which generated this result transmitted reference range : 150 - 328 10*3/ ?L. The reference r ivelisse was not used to interpret this result as normal/abnormal . MPV (test code = 9.1 fL 9.8-13.0 L 86820-6) NRBC/100 WBC (test See_Comment [Automat ed code = 3253129961) message] The system which generated this result transmitted reference range : 0.0 - 10.0 /100 WBCs. The refer ence range was not u sed to interpret th is result as normal/abnormal . NRBC x10^3 (test code See_Comment [Auto mated = 9382682032) message] The s ystem which generated this result transmitted reference range : 10*3/?L. The reference range was not used to interpret this result as normal/abnormal . GRAN MAT (NEUT) % 79.8 % (test code = 770-8) IMM GRAN % (test code 0.50 % = 7331598140) LYMPH % (test code = 9.3 % 736-9) MONO % (test code = 7.9 % 5905-5) EOS % (test code = 2.0 % 713-8) BASO % (test code = 0.5 % 706-2) GRAN MAT x10^3(ANC) 6.02 10*3/uL 1.99-6.95 (test code = 5366293262) IMM GRAN x10^3 (test 0.04 10*3/uL 0.00-0.06 code = 1503561844) LYMPH x10^3 (test code 0.70 10*3/uL 1.09-3.23 L = 731-0) MONO x10^3 (test code 0.60 10*3/uL 0.36-1.02 = 742-7) EOS x10^3 (test code = 0.15 10*3/uL 0.06-0.53 711-2) BASO x10^3 (test code 0.04 10*3/uL 0.01-0.09 = 704-7) Lab Interpretation Abnormal (test code = 17237-2) [facility]/BRAIN W/O [id number] 18:30:00 [facility] : 1950 Sex: M [facility]: [facility] 1950 Age/S: 72 / M [address] [place] Unit #: [id number] Loc: [place] [address] Phys: Davida Shepard Acct: [id number] Dis Date: Status: REG REF PHONE #: [phone] Exam Date: 01/23/20221818 FAX #: Reason: NEURO CHANGES EXAMS: CPT: [id number] CT HEAD/BRAIN W/O CONT 76435 Location: H 77 EXAM: CT HEAD WITHOUT CONTRAST DATE:01/23/2022 6:14 PM HISTORY: NEURO CHANGES TECHNIQUE: Axial CT images from the skull base to the vertex without intravenous contrast.Coronal and sagittal reformatted images were created from the data set. One or more of the followingdose reduction techniques were used: Automated exposure control, adjustment of the mA and/or kV according to patient size, and/or iterative reconstruction. COMPARISON: None FINDINGS: No acute parenchymal abnormality. Volume loss. No acute hemorrhage, hydrocephalus or midline shift. No bony lesions. Paranasal sinuses are clear. Calcification of the carotid siphons. IMPRESSION: No acute intracranial abnormality at 1830 Reported and signed by: Hawa Dahl M.D. CC: Davida Shepard Technologist:Yadira Marks, RT(R)(CT) CTDI: DLP: Trnscb Date/Time: 01/23/2022 (1829) [email or web address] Orig Print D/T: S: 01/23/2022 (1832) PAGE 1 Signed ReportCBC W/AUTO [id number] 00:39:00 Test Item Value Reference Range Interpretation Comments WHITE BLOOD CELL (test code = 9.6 K/mm3 3.5-11.0 N WBC) RED BLOOD CELL (test code = 4.08 M/mm3 4.70-6.10 L RBC) HEMOGLOBIN (test code = HGB) 11.7 G/DL 12.3-15.9 L HEMATOCRIT (test code = HCT) 35.3 % 35.8-46.7 L MEAN CELL VOLUME (test code = 86.5 Fl 86.3-98.9 N MCV) MEAN CELL HGB (test code = MCH) 28.7 pg 28.9-34.4 L MEAN CELL HGB CONCETRATION 33.1 G/DL 32.1-34.5 N (test code = MCHC) RED CELL DISTRIBUTION WIDTH 13.4 SD 11.5-14.5 N (test code = RDW) PLATELET COUNT (test code = 316 K/mm3 150-450 N PLT) MEAN PLATELET VOLUME (test code 9.90 fL 7.0-9.6 H = MPV) NEUTROPHIL % (test code = NT%) 65.8 % 40-76 N IMMATURE GRANULOCYTE % (test 0.5 % 0.0-5.0 N code = IG%) LYMPHOCYTE % (test code = LY%) 18.6 % 20.5-51.1 L MONOCYTE % (test code = MO%) 13.6 % 1.7-9.3 H EOSINOPHIL % (test code = EO%) 1.0 % 0.0-6.0 N BASOPHIL % (test code = BA%) 0.5 % 0.0-2.0 N NUCLEATED RBC % (test code = 0.0 /100WBC% 0.0-1.0 N NRBC%) NEUTROPHIL # (test code = NT#) 6.3 K/mm3 1.8-7.6 N IMMATURE GRANULOCYTE # (test 0.05 x10 3/uL 0.00-0.03 H code = IG#) LYMPHOCYTE # (test code = LY#) 1.8 K/mm3 0.6-3.0 N MONOCYTE # (test code = MO#) 1.3 K/mm3 0.2-1.5 N EOSINOPHIL # (test code = EO#) 0.1 K/mm3 0.0-0.4 N BASOPHIL # (test code = BA#) 0.1 K/mm3 0.0-0.2 N NUCLEATED RBC # (test code = 0.0 K/mm3 0.00-0.01 N NRBC#) MANUAL DIFF REQUIRED (test code NO DIFF/SCN CRITERIA = MDIFF) CBC W/AUTO [id number] 18:35:00 Test Item Value Reference Range Interpretation Comments WHITE BLOOD CELL (test code = 11.0 K/mm3 3.5-11.0 N WBC) RED BLOOD CELL (test code = 4.67 M/mm3 4.70-6.10 L RBC) HEMOGLOBIN (test code = HGB) 13.3 G/DL 12.3-15.9 N HEMATOCRIT (test code = HCT) 41.7 % 35.8-46.7 N MEAN CELL VOLUME (test code = 89.3 Fl 86.3-98.9 N MCV) MEAN CELL HGB (test code = MCH) 28.5 pg 28.9-34.4 L MEAN CELL HGB CONCETRATION 31.9 G/DL 32.1-34.5 L (test code = MCHC) RED CELL DISTRIBUTION WIDTH 13.5 SD 11.5-14.5 N (test code = RDW) PLATELET COUNT (test code = 334 K/mm3 150-450 N PLT) MEAN PLATELET VOLUME (test code 9.80 fL 7.0-9.6 H = MPV) NEUTROPHIL % (test code = NT%) 76.6 % 40-76 H IMMATURE GRANULOCYTE % (test 0.5 % 0.0-5.0 N code = IG%) LYMPHOCYTE % (test code = LY%) 10.6 % 20.5-51.1 L MONOCYTE % (test code = MO%) 11.6 % 1.7-9.3 H EOSINOPHIL % (test code = EO%) 0.3 % 0.0-6.0 N BASOPHIL % (test code = BA%) 0.4 % 0.0-2.0 N NUCLEATED RBC % (test code = 0.0 /100WBC% 0.0-1.0 N NRBC%) NEUTROPHIL # (test code = NT#) 8.5 K/mm3 1.8-7.6 H IMMATURE GRANULOCYTE # (test 0.05 x10 3/uL 0.00-0.03 H code = IG#) LYMPHOCYTE # (test code = LY#) 1.2 K/mm3 0.6-3.0 N MONOCYTE # (test code = MO#) 1.3 K/mm3 0.2-1.5 N EOSINOPHIL # (test code = EO#) 0.0 K/mm3 0.0-0.4 N BASOPHIL # (test code = BA#) 0.0 K/mm3 0.0-0.2 N NUCLEATED RBC # (test code = 0.0 K/mm3 0.00-0.01 N NRBC#) MANUAL DIFF REQUIRED (test code NO DIFF/SCN CRITERIA = MDIFF) BASIC METABOLIC [id number] 18:34:00 Test Item Value Reference Range Interpretation Comments SODIUM (test code 137 mmol/L 134-147 N = NA) POTASSIUM (test 4.0 mmol/L 3.4-5.0 N code = K) CHLORIDE (test 100 mmol/L 100-108 N code = CL) CARBON DIOXIDE 26 mmol/L 21-32 N (test code = CO2) ANION GAP (test 11.0 GAP calc 4.0-15.0 N code = GAP) GLUCOSE (test code 154 MG/DL 70-110 H = GLU) BLOOD UREA 19 MG/DL 7-18 H NITROGEN (test code = [...] ag e is <18 years. CREATININE (test 0.9 MG/DL 0.8-1.3 N code = CREAT) CALCIUM (test code 8.8 MG/DL 8.5-10.1 N = CA) [id number] 17:41:00 Test Item Value Reference Range Interpretation Comments AMMONIA (test code = AMM) 41 mcMOL/L 11-32 H CBC W/AUTO [id number] 16:16:00 Test Item Value Reference Range Interpretation Comments WHITE BLOOD CELL (test code = 13.3 K/mm3 3.5-11.0 H WBC) RED BLOOD CELL (test code = RBC) 4.38 M/mm3 4.70-6.10 L HEMOGLOBIN (test code = HGB) 12.6 G/DL 12.3-15.9 N HEMATOCRIT (test code = HCT) 39.1 % 35.8-46.7 N MEAN CELL VOLUME (test code = 89.3 Fl 86.3-98.9 N MCV) MEAN CELL HGB (test code = MCH) 28.8 pg 28.9-34.4 L MEAN CELL HGB CONCETRATION (test 32.2 G/DL 32.1-34.5 N code = MCHC) RED CELL DISTRIBUTION WIDTH (test 13.3 SD 11.5-14.5 N code = RDW) PLATELET COUNT (test code = PLT) 297 K/mm3 150-450 N MEAN PLATELET VOLUME (test code = 9.70 fL 7.0-9.6 H MPV) NEUTROPHIL % (test code = NT%) 67.1 % 40-76 N IMMATURE GRANULOCYTE % (test code 0.4 % 0.0-5.0 N = IG%) LYMPHOCYTE % (test code = LY%) 20.8 % 20.5-51.1 N MONOCYTE % (test code = MO%) 9.5 % 1.7-9.3 H EOSINOPHIL % (test code = EO%) 1.7 % 0.0-6.0 N BASOPHIL % (test code = BA%) 0.5 % 0.0-2.0 N MANUAL DIFF REQUIRED (test code = NO DIFF/SCN CRITERIA MDIFF) CBC W/AUTO [id number] 16:16:00 Test Item Value Reference Range Interpretation [...] = NO DIFF/SCN CRITERIA MDIFF) COMPREHENSIVE METABOLIC [id number] 16:12:00 Test Item Value Reference Range Interpretation [...] code = ALKP) - MRI L-SPINE W/O [id number] 13:45:00 [facility] : 1950 Sex: M FAX: Brandi Narayan MD [phone] Camps: PM St: REG Name: YANICK COOPER [facility] : 1950 Age/S: 71/M [address] Unit #: [id number] Loc: [place] [address] Phys: Brandi Narayan MD Acct: [id number] Dis Date: Status: REG REF PHONE #: [phone] Exam Date: 01/03/2022 1200 FAX #: Reason: BACK PAIN, WEAKNESS EXAMS: CPT: [id number] MRI L-SPINE W/O CONT 58044 LOCATION: B2 MRI LUMBAR SPINE WITHOUT CONTRAST HISTORY: BACK PAIN, WEAKNESS TECHNIQUE: Multiplanar multisequence MR images of the lumbar spine were obtained without intravenous contrast. Unless otherwise specified, incidental findings do not require dedicated imaging follow-up. COMPARISON: None FINDINGS: For purposes of this dictation, it is assumed that there are 5 nonrib-bearing lumbar type vertebrae, and the most caudal fully segmented lumbar vertebra is labeled L5. The lumbar spine demonstrates normal alignment. Vertebral bodies are normal inheight. There is a normal marrow signal pattern. [...] changes and a Schmorl's node in L3. Circumferential disc bulge and facet hypertrophy result in moderate spinal canal, moderate right and mild left neural foraminal stenosis. L4-5: Severe loss of disc height. Circumferential disc bulge and facet hypertrophy result in mild spinal canal and moderate bilateral PAGE 1 Signed Report (CONTINUED) FAX: Brandi Narayan MD [phone] Camps: PM St: REG Name: YANICK COOPER [facility] : 1950 Age/S: 71/M [address] [place] Unit #: [id number] Loc: [place] [address] Phys: Brandi Narayan MD Acct: [id number] Dis Date: Status: REG REF PHONE #: [phone] Exam Date: 01/03/2022 1200 FAX #: Reason: BACK PILO N, WEAKNESS EXAMS: CPT: [id number] MRI L-SPINE W/O CONT 11257 (Continued) neural foraminal stenosis. L5-S1: Moderate loss of disc height. Circumferential disc bulge and facet hypertrophy result in severe bilateral neural foraminal stenosis. No significant spinal canal stenosis. IMPRESSION: Degenerative changes result in multilevel moderate to severe neural foraminal stenosis in the mid to lower lumbar spine as described above. There is also moderate spinal canal stenosis at L3-L4. ElectronicallySigned by Ricky Quinones on 01/03/2022 at 7893 Reported and signed by: Andrez Quinones M.D. CC: Brandi Narayan MD Technologist: Rojas Dalal RT(R)(CT)(MR) Transcribed Date/Time/By: 01/03/2022 (3629) :[email or web address] Orig Print D/T: S: 01/03/2022 (4231) PAGE 2 Signed Report- CT HEAD/BRAIN W/O [id number] 10:58:00 [facility] : 1950 Sex: M Name: YANICK COOPER [facility] : 1950 Age/S: 71 / M [address] Unit #: [id number] Loc: [place] [address] Phys: Brandi Narayan MD Acct: [id number] Dis Date: Status: REG REF PHONE #: [phone] Exam Date: 01/03/2022 1030 FAX #: Reason: R/O STROKE EXAMS: CPT: [id number] CT HEAD/BRAIN W/O CONT 32526 Location Code: S17 EXAMINATION: - CT HEAD/BRAIN W/O CONT CLINICAL INDICATION: Male, 71 years old with Parkinson's and hypertension. TECHNIQUE: Axial [...] lucencies in the periventricular and subcortical white matterlikely represent chronic ischemic changes. No evidence of acute intracranial hemorrhage, mass effect, or abnormal extra-axial fluid collection. No midline shift. Prominence of the lateral ventricles with respect to the prominent cerebral sulci likely represent moderate cerebral volume loss. Small fociof gas within the sagittal sinus is nonspecific. Intracranial vascular calcifications. Sinuses: The visualized paranasal sinuses and mastoid air cells are predominantly clear. Bones: The osseous structures are intact. The orbits appear symmetric. IMPRESSION: No CT evidence of acute intracranial process. Chronic white matter microvascular ischemic changes. Moderate cerebral volume loss. PAGE 1 Signed Report (CONTINUED) Name: YANICK COOPER [facility] : 1950 Age/S: 71 / M [address] #: [id number] Loc: [place] [address] Phys: Brandi Narayan MD Acct: [id number] Dis Date: Status: REG REF PHONE #: [phone] Exam Date: 01/03/2022 1030 FAX #: Reason: R/O STROKE EXAMS: CPT: [id number] CT HEAD/BRAIN W/O CONT 00619 (Continued) at 1058 Reported and signed by: Dante Duron M.D. CC: Brandi Narayan MD Technologist:Sher Tracy, RT(R)(CT) CTDI: DLP: Trnscb Date/Time: 01/03/2022 (2038) [email or web address] Orig Print D/T: S: 01/03/2022 (2735) PAGE 2 Signed ReportUA RFLX MICR CULT IF [id number] 16:28:00 Test Item Value Reference Range Interpretation [...] Criteria Culture CHK code = UACULT) POC-Glucose [id number] 18:23:43 Test Item Value Reference Range Interpretation Comments POC-Glucose Meter (test 88 mg/dL 70-110 : TE STED AT [facility] code = 1538) [address] [place] [address], [facility] 30: Bindery Cutter Operator/Techni madeleine ID = [id number] for Nicolas Terrie Lab Interpretation (test Normal code = 45960-5) [facility]-Glucose [id number] 18:23:43 Test Item Value Reference Range Interpretation Comments POC-Glucose Meter (test 88 mg/dL 70-110 : TE STED AT [facility] code = 1538) [address] [place] [address], 770 30: Binder[employer] Cutter Operator/Techni madeleine ID = [id number] for Nicolas Terrie Lab Interpretation (test Normal code = 23606-3) [facility]-Glucose [id number] 18:23:43 Test Item Value Reference Range Interpretation Comments POC-Glucose Meter (test 88 mg/dL 70-110 : TE STED AT [facility] code = 1538) [address] [place] [address], 770 30: Bindery Cutter Operator/Techni madeleine ID = [id number] for Terrie Valenzuela Lab Interpretation (test Normal code = 80864-6) [facility] [id number] 18:23:43 Test Item Value Reference Range Interpretation Comments POC-Glucose Meter (test 88 mg/dL 70-110 : TE STED AT [facility] code = 1538) [address] [place] [address], 770 30: [employer] Cutter Operator/Techni madeliene ID = [id number] for Terrie Valenzuela Lab Interpretation (test Normal code = 01773-1) [facility]ucose [id number] 18:23:43 Test Item Value Reference Range Interpretation Comments POC-Glucose Meter (test 88 mg/dL 70-110 : TE STED AT [facility] code = 1538) [address] [place] [address], 770 30: B[employer] Cutter Operator/Techni madeleine ID = [id number] for Terrie Valenzuela Lab Interpretation (test Normal code = 53116-8) [facility] [id number] 18:23:43 Test Item Value Reference Range Interpretation Comments POC-Glucose Meter (test 88 mg/dL 70-110 : TE STED AT [facility] code = 1538) [address] [place], [place] [address], 770 30: Bindery Cutter Operator/Techni madeleine ID = [id number] for Terrie Valenzuela Lab Interpretation (test Normal code = 08778-6) [facility] [id number] 18:23:43 Test Item Value Reference Range Interpretation Comments POC-GLUCOSE METER 88 mg/dL 70-110 : TESTED A T [place] [address] (BEAKER) (test code = [facility], 1538) [address]: Bindery Cutter Operator/Techni madeleine ID = [id number] for Terrie Cleaning POCT-GLUCOSE [id number] 17:38:58 Test Item Value Reference Range Interpretation Comments POC-GLUCOSE METER 68 mg/dL 70-110 L : Notified RN/MD: TESTED (BEAKER) (test code AT [facility] [address] [facility] = 1538) [facility], 770 30: Bindery Cutter Operator/Techni madeleine ID = [id number] for CONR OD EDUARD (V), SORAIDA Type and screen, [id number] 13:01:00 Test Item Value Reference Range Interpretation Comments ABO/RH AUTOMATED (BEAKER) (test O POSITIVE code = 2260) Ab Scrn (test code = 890-4) NEGATIVE [facility] screen, [id number] 13:01:00 Test Item Value Reference Range Interpretation Comments ABO/RH AUTOMATED (BEAKER) (test O POSITIVE code = 2260) Ab Scrn (test code = 890-4) NEGATIVE [facility] screen, [id number] 13:01:00 Test Item Value Reference Range Interpretation Comments ABO/RH AUTOMATED (BEAKER) (test O POSITIVE code = 2260) Ab Scrn (test code = 890-4) NEGATIVE [facility] screen, [id number] 13:01:00 Test Item Value Reference Range Interpretation Comments ABO/RH AUTOMATED (BEAKER) (test O POSITIVE code = 2260) Ab Scrn (test code = 890-4) NEGATIVE [facility] screen, [id number] 13:01:00 Test Item Value Reference Range Interpretation Comments ABO/RH AUTOMATED (BEAKER) (test O POSITIVE code = 2260) Ab Scrn (test code = 890-4) NEGATIVE [facility] screen, [id number] 13:01:00 Test Item Value Reference Range Interpretation Comments ABO/RH AUTOMATED (BEAKER) (test O POSITIVE code = 2260) Ab Scrn (test code = 890-4) NE[facility]IVE [facility])2021-01-30 06:34:53 Test Item Value Reference Range Interpretation Comments SARS-COV2/RT-PCR (test code = Negative Negative 2731459) Negative result for this test determines that [...] 564(g) of the Act.Testing was performed using Trueffect SARS-CoV-2 assay.Fact Sheet for Healthcare Providers:https://www.Table8.tan/tiffanie/RT SARS-CoV-2 HCP Fact Sheet 51- 986873.pdfFact Sheet for Healthcare Patients:https://www.Table8.tan/tiffanie/RT SARS-CoV-2 Patient Fact Sheet EN 51-114192B5.pdfBASI METABOLIC [id number] 13:26:33 Test Item Value Reference Range Interpretation [...] 697) EGFR (BEAKER) (test 98 mL/min/1.73 ESTIMA RAHCEL GFR IS code = 1092) sq m NOT ACCURATE CREATININE CLEARANCE IN PREDICTING GLOMERULAR FILTRATION RATE . ESTIMATED GFR I S NOT APPLICABLE FOR DIALYSIS PATIEN TS. Bindery Cutter Operator ID - JARRETT MCBC W/PLT COUNT & AUTO [id number] 13:03:25 Test Item Value Reference Range Interpretation [...] (BEAKER) (test code = 2801) BASIC METABOLIC [id number] 06:27:00 Test Item Value Reference Range Interpretation [...] 697) EGFR (BEAKER) (test 89 mL/min/1.73 ESTIMA RACHEL GFR IS code = 1092) sq m NOT ACCURATE CREATININE CLEARANCE IN PREDICTING GLOMERULAR FILTRATION RATE . ESTIMATED GFR I S NOT APPLICABLE FOR DIALYSIS PATIEN TS. CBC W/PLT COUNT & AUTO [id number] 06:12:00 Test Item Value Reference Range Interpretation [...] % 0-1 PERCENT (BEAKER) (test code = 7301)"
[2023-01-08] MEDS ORDERED: NACL 0.9% IRR SOLN 2,000 ML IRR ONE ×3 (15:27→19:47)
[2023-01-08 15:49] LABS: Absolute Lymphocytes (CBC) 2.5 K/uL (0.7-4.9); Hematocrit 32.9 % (39.6-49.0); Lymphocytes % 18.8 % (15.3-44.8); MCV 80.1 fL (80-100); Platelets 458 thou/uL (152-406); RBC Red Blood Cell Count 4.11 M/uL (4.33-5.43)
[2023-01-08 16:10] LABS: Urine Bacteria <20 /HPF (<20); Urine RBC >50 /HPF (None Seen)
[2023-01-08] MEDS ORDERED: MORPHINE 4 MG/ML SYR ONE ×2 (16:10→20:23)
[2023-01-08] MEDS ORDERED: NA CHLORIDE 0.9% 1,000 ML ONE (16:10)
[2023-01-08] MEDS ORDERED: ONDANSETRON 4 MG/2 ML VIAL ONE (16:10)
[2023-01-08 16:17] LABS: AST/SGOT 12 U/L (15-37); Albumin 2.5 g/dL (3.4-5.0); Alkaline Phosphatase 104 U/L (45-117); BUN Blood Urea Nitrogen 17 mg/dL (7-18); Bicarbonate 28 mEq/L (21-32); Bilirubin Total 0.3 mg/dL (0.2-1.0); Glomerular Filtration Rate 98 ml/min (=/>90); Glucose Level 233 mg/dL (74-106); Lipase 38 U/L (13-75); Potassium 4.2 mEq/L (3.5-5.1); Protein, Total 7.4 g/dL (6.4-8.2); Sodium Level 133 mEq/L (136-145)
[2023-01-08 16:36] LABS: ALT/SGPT < 10 U/L (16-61)
[2023-01-08 16:38] LABS: Specific Gravity 1.006 (1.005-1.030); Urine Bilirubin NEGATIVE (Negative); Urine Blood 3+ (OVER) (Negative); Urine Clarity Extremely Turbid (Clear); Urine Color Light-Red (Yellow); Urine Glucose NEGATIVE (Negative); Urine Protein 1+ (Negative); Urine Urobilinogen Normal (Normal)
--- NOTE | 2023-01-08 17:31 | RAD REPORT ---
EXAM DESCRIPTION: CTAbdomen Pelvis W Contrast - 01/08/2023 4:50 pm CLINICAL HISTORY: HEMATURIA COMPARISON: Abdomen Pelvis W Contrast dated 03/04/2020; CT ABD PELVIS W CONTRAST dated 08/22/2008 TECHNIQUE: CT of the abdomen and pelvis was performed with IV contrast. All CT scans are performed using dose optimization technique as appropriate and may include automated exposure control or mA/KV adjustment according to patient size. FINDINGS: Lower chest: No acute abnormality. Mild circumferential thickened distal esophagus. Juan ry artery calcifications Liver: Minimal intrahepatic biliary duct dilatation. No focal mass. Biliary: Cholecystectomy Stomach: No significant focal abnormality. Duodenum: No significant focal abnormality. Pancreas: No significant abnormality. Spleen: No significant abnormality. Adrenal: Bilateral adrenal myelolipomas. Unchanged 14 mm left adrenal nodule. Kidney/ureter: No hydronephrosis. No renal calculi. Too small to characterize and/or benign appearing renal lesions are noted. Retroperitoneum: No retroperitoneal adenopathy. Vascular: No aneurysm. Atherosclerosis Bowel: Normal appendix .. Diverticulosis without diverticulitis . Peritoneum: No ascites or free air. Tiny fat containing umbilical hernia. Small fat containing umbili juan m hernia Bladder: Bladder catheter. Rounded mass in the bladder likely representing hemorrhage.Bladder wall th ickening is noted which is circumferential. Gas present within the bladder. Reproductive: No adnexal masses. Bones: No acute fracture. Multilevel degenerative changes are present in the spine. Other: n/a IMPRESSION: Rounded filling defect in the bladder likely representing hemorrhage. Bladder wall thick ening also noted which could be infection/inflammation or chronic bladder outlet obstruction.
[2023-01-08] MEDS ORDERED: LIDOCAINE HCL JELLY 2% 6 ML SYRINGE TOP ONE (19:16)
[2023-01-08] MEDS ORDERED: NA CHLORIDE 0.9% 2,000 ML ONE (21:27)
[2023-01-08] MEDS ORDERED: NACL 0.9% IRR SOLN 4,000 ML IRR ONE (21:44)
--- NOTE | 2023-01-08 22:01 | ER ---
Nurse's Notes [facility] Name: Dominic Jacobo Age: 72 yrs Sex: Male : 1950 Arrival Date: 01/08/2023 Time: 14:43 Bed 14 Private MD: Diagnosis: Gross hematuria;Anemia, unspecified Presentation: 01/08 15:01 Chief complaint: EMS states: toned out to [facility] for penile bleeding and blood in eh3 Lagun[place] that started this morning. Pt c/o waves of pelvic pain. Tested Covid+ 10 days ago. Coronavirus screen: Vaccine status: Patient reports receiving the 2nd dose of the covid vaccine. Ebola Screen: No symptoms or risks identified at this time. Risk Assessment: Do you want to hurt yourself or someone else? Patient reports no desire to harm self or others. Onset of symptoms was January 08, 2023. 15:01 Method Of Arrival: EMS: [place] [address] 15:01 Acuity: NICOL 3 [facility] 01/09 00:32 Initial Sepsis Screen: Does the patient meet any 2 criteria? Yes Does the patient have jw7 a suspected source of infection? Yes: Catheter related infection ([place]/dialysis/PICC/central line). Triage Assessment: 01/08 15:02 General: Appears in no apparent distress. uncomfortable, Behavior is cooperative. Pain: eh3 Complains of pain in pelvis. Neuro: Level of Consciousness is awake, alert, obeys commands, Oriented to person. Cardiovascular: Capillary refill < 3 seconds Patient's skin is warm and dry. Respiratory: Airway is patent Respiratory effort is even, unlabored, Respiratory pattern is regular, symmetrical. GI: Abdomen is round non-distended. : [place] in place Urine is victorino blood, Blood noted at urinary meatus. Derm: Skin is dry, Skin is pale, Skin temperature is warm. Musculoskeletal: No signs and/or symptoms reported regarding the musculoskeletal system. Historical: - Allergies: 15:02 ambien; 3 - Home Meds: 15:02 clopidogrel 75 mg Oral tab 1 tab once daily [Active]; eh3 - PMHx: 15:02 CAD; Diabetes - NIDDM; High Cholesterol; Hypertension; UTI (Hypertension); Chronic eh3 obstructive lung disease; - Immunization history:: Adult Immunizations up to date. - Social history:: Smoking status: unknown. Screenin:01 [facility] ED Fall Risk Assessment (Adult) Score/Fall Risk Level 0 - 2 = Low Risk. Abuse eh3 screen: Denies threats or abuse. Denies injuries from another. Nutritional screening: No deficits noted. Tuberculosis screening: No symptoms or risk factors identified. Assessment: 15:01 Reassessment: No changes from previously documented assessment. See triage assessment. eh3 16:00 Reassessment: Patient appears in no apparent distress at this time. Patient and/or eh3 family updated on plan of care and expected duration. Pain level reassessed. Patient is alert, oriented x 3, equal unlabored respirations, skin warm/dry/pink. 17:00 Reassessment: Patient appears in no apparent distress at this time. Patient and/or eh3 family updated on plan of care and expected duration. Pain level reassessed. Patient is alert, oriented x 3, equal unlabored respirations, skin warm/dry/pink. 18:00 Reassessment: Patient appears in no apparent distress at this time. Patient and/or eh3 family updated on plan of care and expected duration. Pain level reassessed. Patient is alert, oriented x 3, equal unlabored respirations, skin warm/dry/pink. 19:00 Reassessment: Patient appears in no apparent distress at this time. Patient and/or eh3 family updated on plan of care and expected duration. Pain level reassessed. Patient is alert, oriented x 3, equal unlabored respirations, skin warm/dry/pink. 20:00 Reassessment: Patient appears in no apparent distress at this time. Patient and/or eh3 family updated on plan of care and expected duration. Pain level reassessed. Patient is alert, oriented x 3, equal unlabored respirations, skin warm/dry/pink. 21:00 Reassessment: Patient appears in no apparent distress at this time. Patient and/or eh3 family updated on plan of care and expected duration. Pain level reassessed. Patient is alert, oriented x 3, equal unlabored respirations, skin warm/dry/pink. 22:00 Reassessment: Patient appears in no apparent distress at this time. Patient and/or jw7 family updated on plan of care and expected duration. Pain level reassessed. Patient is alert, oriented x 3, equal unlabored respirations, skin warm/dry/pink. Patient states symptoms have improved. 23:00 Reassessment: Patient appears in no apparent distress at this time. No changes from [facility] previously documented assessment. Patient and/or family updated on plan of care and expected duration. Pain level reassessed. Patient is alert, oriented x 3, equal unlabored respirations, skin warm/dry/pink. 01/09 00:20 Reassessment: Patient appears in no apparent distress at this time. No changes from [facility] previously documented assessment. Patient and/or family updated on plan of care and expected duration. Pain level reassessed. Patient is alert, oriented x 3, equal unlabored respirations, skin warm/dry/pink. 01:15 Reassessment: Patient appears in no apparent distress at this time. Patient and/or jw7 family updated on plan of care and expected duration. Pain level reassessed. Patient is alert, oriented x 3, equal unlabored respirations, skin warm/dry/pink. Patient denies pain at this time. Patient states symptoms have improved. Vital Signs: 01/08 15:00 BP 121 / 71; Pulse 100; Resp 20; Temp 98.8(O); Pulse Ox 97% on R/A; 3 16:00 BP 138 / 91; Pulse 103; Resp 18; Pulse Ox 97% on R/A; 3 17:00 BP 120 / 87; Pulse 94; Resp 20; Pulse Ox 97% on R/A; 3 18:00 BP 123 / 54; Pulse 9; Resp 16; Pulse Ox 100% on R/A; 3 19:00 BP 133 / 73; Pulse 97; Resp 16; Pulse Ox 96% on R/A; 3 20:00 BP 148 / 86; Pulse 120; Resp 22; Pulse Ox 95% on R/A; 3 21:00 BP 129 / 77; Pulse 104; Resp 14; Pulse Ox 95% on R/A; 3 22:00 BP 114 / 93; Pulse 118; Resp 15 S; Pulse Ox 93% on R/A; 7 23:00 BP 134 / 96; Pulse 121; Resp 13; Pulse Ox 97% on 2 lpm NC; 7 01/09 00:00 BP 110 / 84; Pulse 113; Resp 13 S; Pulse Ox 96% on 2 lpm NC; [facility] ED Course: 01/08 15:00 Patient arrived in ED. eh3 15:01 Tiffanie Juarez FNP-C is PHCP. kb 15:01 Efrain Melchor MD is Attending Physician. kb 15:01 Ashley Arvizu RN is Primary Nurse. eh3 15:01 Patient has correct armband on for positive identification. Bed in low position. Call eh3 light in reach. Side rails up X2. Provided Education on: use of call sin. Client placed on continuous cardiac and pulse oximetry monitoring. NIBP monitoring applied. 15:02 Triage completed. eh3 15:35 Inserted saline lock: 22 gauge in left forearm, using aseptic technique. Blood eh3 collected. 16:51 CT Abd/Pelvis - IV Contrast Only In Process Unspecified. EDMS 17:30 3-way catheter inserted, using sterile technique, 20 Fr. Returned bloody urine. eh3 18:57 PHCP role handed off by Tiffanie Juarez FNP-C cp 18:57 Prateek Gonzalez PA is PHCP. cp 19:00 Arm band placed on. jw7 20:15 First set of blood cultures drawn by me. jw7 20:30 Second set of blood cultures drawn by me. jw7 20:35 Blood Culture Adult (2) Sent. jw7 21:20 Report given to TYRA Loya. eh3 21:59 Dash Mathews MD is Hospitalizing Provider. 01/09 00:30 Continuous Bladder Irrigation. jw7 01:34 Patient admitted, IV remains in place. jw7 Administered Medications: 01/08 16:03 Drug: NS 0.9% IV 1000 ml IV at 1000 ml once Route: IV; Rate: 1000 ml; Site: left eh3 forearm; 01/09 01:37 Follow up: Response: No adverse reaction; IV Status: Completed infusion; IV Intake: jw7 1000ml 01/08 16:04 Drug: morphine IVP or IV 4 mg IVP once over 4 mins Route: IVP; Infused Over: 4 mins; 3 Site: left forearm; 17:00 Follow up: Response: No adverse reaction 3 16:04 Drug: Ondansetron IVP 4 mg IVP once; over 2 minutes Route: IVP; Site: left forearm; 3 17:00 Follow up: Response: No adverse reaction 3 20:20 Drug: morphine IVP or IV 4 mg IVP once over 4 mins Route: IVP; Infused Over: 4 mins; [facility] Site: left antecubital; 01/09 01:36 Follow up: Response: No adverse reaction; Marked relief of symptoms jw7 01/08 21:00 Drug: Rocephin IV 1 grams IV at calculated rate once; Given slow IV push per pharmacy [facility] instructions Route: IV; Rate: calculated rate; Site: left forearm; 01/09 01:36 Follow up: Response: No adverse reaction; IV Status: Completed infusion; IV Intake: [id number] Medication: 00:32 VIS not applicable for this client. jw7 Intake: 01/08 21:00 IV: 1000ml; Tubes: 6000ml (); Total: 7000ml. [facility] 01/09 01:00 Tubes: 500ml (); Total: 7500ml. jw7 01:36 IV: 50ml; Total: 7550ml. jw7 01:37 IV: 1000ml; Total: 8550ml. 7 Output: 01/08 21:00 Urine: 7400ml ([place]as); Total: 7400ml. [facility] 01/09 01:00 Urine: 500ml ([place]); Total: 7900ml. jw7 Outcome: 01/08 22:00 Decision to Hospitalize by Provider. 01/09 01:34 Admitted to Med/surg accompanied by nurse, via stretcher, room 220, Report called to aamir Arredondo RN Condition: stable Instructed on the need for admit, Demonstrated understanding of instructions, 01:37 Patient left the ED. 7 Signatures: Dispatcher [employer] EDVT Tiffanie Juarez, VÍCTOR-C PUBLIC INFORMATION RELATIONS MANAGER-CkPrateek Rubin PA PA cp Waits, Jodi, RN RN Ashley Delong, TYRA RN [facility] Corrections: (The following items were deleted from the chart) 01/08 21:52 15:42 Ashley Arvizu, TYRA is Primary Nurse. [place] [id number] 01/09 00:41 01/08 22:00 Reassessment: Patient appears in no apparent distress at this time. No 7 changes from previously documented assessment. Patient and/or family updated on plan of care and expected duration. Pain level reassessed. Patient is alert, oriented x 3, equal unlabored respirations, skin warm/dry/pink. 7
--- NOTE | 2023-01-08 22:01 | EDPHYS ---
Physician Documentation [facility] Name: Dominic Jacobo Age: 72 yrs Sex: Male : 1950 Arrival Date: 01/08/2023 Time: 14:43 Bed 14 Private MD: ED Physician Efrain Melchor HPI: 01/08 17:45 This 72 yrs old Male presents to ER via EMS with complaints of Blood In Catheter. kb 17:45 Patient is a 72-year-old male who has an indwelling Marcum. correction staff reports kb they noticed blood clots around Marcum this morning and when they went back this afternoon there was gross blood in collection bag. Patient reports intermittent pain to suprapubic area.. Historical: - Allergies: 15:02 ambien; eh3 - Home Meds: 15:02 clopidogrel 75 mg Oral tab 1 tab once daily [Active]; eh3 - PMHx: 15:02 CAD; Diabetes - NIDDM; High Cholesterol; Hypertension; UTI (Hypertension); Chronic eh3 obstructive lung disease; - Immunization history:: Adult Immunizations up to date. - Social history:: Smoking status: unknown. ROS: 17:44 Constitutional: Negative for fever, chills, and weight loss, kb 17:44 : Positive for hematuria, 17:44 All other systems are negative, Exam: 17:44 Constitutional: This is a well developed, well nourished patient who is awake, alert, kb and in no acute distress. Head/Face: Normocephalic, atraumatic. ENT: Moist Mucous membranes Cardiovascular: Regular rate Respiratory: Respirations even and unlabored. No increased work of breathing. Talking in full sentences Abdomen/GI: Soft, non-tender. No distention Skin: Warm, dry with normal turgor. Normal color. MS/ Extremity: Pulses equal, no cyanosis. Neurovascular intact. Full, normal range of motion. 17:44 : a marcum is noted, urine is noted to have victorino blood, Vital Signs: 15:00 BP 121 / 71; Pulse 100; Resp 20; Temp 98.8(O); Pulse Ox 97% on R/A; eh3 16:00 BP 138 / 91; Pulse 103; Resp 18; Pulse Ox 97% on R/A; eh3 17:00 BP 120 / 87; Pulse 94; Resp 20; Pulse Ox 97% on R/A; eh3 18:00 BP 123 / 54; Pulse 9; Resp 16; Pulse Ox 100% on R/A; eh3 19:00 BP 133 / 73; Pulse 97; Resp 16; Pulse Ox 96% on R/A; eh3 20:00 BP 148 / 86; Pulse 120; Resp 22; Pulse Ox 95% on R/A; eh3 21:00 BP 129 / 77; Pulse 104; Resp 14; Pulse Ox 95% on R/A; eh3 22:00 BP 114 / 93; Pulse 118; Resp 15 S; Pulse Ox 93% on R/A; jw7 23:00 BP 134 / 96; Pulse 121; Resp 13; Pulse Ox 97% on 2 lpm NC; jw7 01/09 00:00 BP 110 / 84; Pulse 113; Resp 13 S; Pulse Ox 96% on 2 lpm NC; jw7 MDM: 01/08 15:01 Patient medically screened. kb 18:59 Data reviewed: vital signs, nurses notes. Management of patient was discussed with the kb following: Message Clerk: Dr. Mcgrath will come see the patient in ED. 19:04 Transition of care: After a detail discussion of the patient's case, care is kb transferred to Prateek WHITEHEAD. 01/08 15:08 Order name: CBC with Diff; Complete Time: 16:04 kb 01/08 19:52 Interpretation: Normal except: WBC 13.50; RBC 4.11; HGB 10.7; HCT 32.9; MCH 26.0; PLT cp 458; RDW 15.5; MPV 7.0; NEUT A 9.2. 01/08 15:08 Order name: CMP; Complete Time: 16:56 kb 01/08 19:52 Interpretation: Normal except: NA 133; GLUC 233; CRE 0.68; AST 12; ALT < 10; ALB 2.5; cp GLOB 4.9; A/G 0.5. 01/08 15:08 Order name: Lipase; Complete Time: 16:56 kb 01/08 15:08 Order name: Urinalysis w/ reflexes; Complete Time: 16:56 kb 01/08 19:52 Interpretation: Normal except: [facility] Extremely Turbid; UBLD 3+ (OVER); UPROT 1+; UESTR cp 250; UWBC >50; URBC >50. 11/15 16:48 Order name: Urine Culture EDMS 01/08 18:56 Order name: Lactate w/ 2H reflex if indic.; Complete Time: 21:58 cp 01/08 18:56 Order name: Blood Culture Adult (2) cp 01/08 21:58 Order name: CBC w/o diff; Complete Time: 01:23 sb4 01/08 22:08 Order name: Type And Screen sb4 01/08 22:08 Order name: Abo/rh Typing sb4 01/08 15:08 Order name: CT Abd/Pelvis - IV Contrast Only; Complete Time: 17:34 kb 01/08 15:08 Order name: IV Saline Lock; Complete Time: 15:42 kb 01/08 15:08 Order name: Labs collected and sent; Complete Time: 15:42 kb 01/08 15:08 Order name: Misc. Order: irrigate bladder; Complete Time: 18:38 kb Administered Medications: 16:03 Drug: NS 0.9% IV 1000 ml IV at 1000 ml once Route: IV; Rate: 1000 ml; Site: left [facility] forearm; 01/09 01:37 Follow up: Response: No adverse reaction; IV Status: Completed infusion; IV Intake: jw7 1000ml 01/08 16:04 Drug: morphine IVP or IV 4 mg IVP once over 4 mins Route: IVP; Infused Over: 4 mins; [facility] Site: left forearm; 17:00 Follow up: Response: No adverse reaction [facility] 16:04 Drug: Ondansetron IVP 4 mg IVP once; over 2 minutes Route: IVP; Site: left forearm; [facility] 17:00 Follow up: Response: No adverse reaction [facility] 20:20 Drug: morphine IVP or IV 4 mg IVP once over 4 mins Route: IVP; Infused Over: 4 mins; [facility] Site: left antecubital; 01/09 01:36 Follow up: Response: No adverse reaction; Marked relief of symptoms [facility] 01/08 21:00 Drug: Rocephin IV 1 grams IV at calculated rate once; Given slow IV push per pharmacy [facility] instructions Route: IV; Rate: calculated rate; Site: left forearm; 01/09 01:36 Follow up: Response: No adverse reaction; IV Status: Completed infusion; IV Intake: [id number] Disposition: 10:13 Co-signature as Attending Physician, Efrain Melchor MD I reviewed the patient's care rt provided by the Advanced Practice Provider and agree with the diagnosis and treatment plan. Disposition Summary: 01/08/23 22:00 Hospitalization Ordered Notes: Hospitalization Status: Inpatient Admission cp Provider: Dash Mathews cp Location: Telemetry/MedSurg (Inpatient) cp Condition: Stable cp Problem: new cp Symptoms: have improved cp Bed/Room Type: Standard cp Room Assignment: 220(01/08/23 22:09) rv1 Diagnosis - Gross hematuria cp - Anemia, unspecified cp Forms: - Medication Reconciliation Form cp - SBAR form cp - Leadership Thank You Letter cp Signatures: Dispatcher [employer] EDTiffanie Babcock, RIVET STICKER-C RIVET STICKER-Prateek Alford PA PA cp Hall, Erin, RN RN eh3 Katrina Mueller PA-C PABrooklyn sb4 Efrain Melchor MD MD rt Seda Estrada rv1 Shalini Sawyer RN jw7 Corrections: (The following items were deleted from the chart) 01/08 22:09 22:00 cp rv1
--- NOTE | 2023-01-08 22:12 | P.HP ---
Certification for Inpatient Patient admitted to: Inpatient With expected LOS: >2 Midnights Patient will require the following post-hospital care: None Practitioner: I am a practitioner with admitting privileges, knowledge of patient current condition, hospital course, and medical plan of care. Services: Services provided to patient in accordance with Admission requirements found in Title 42 Section 412.3 of the Code of Federal Regulations Patient History Date of Service: 01/08/23 Primary Care Provider: Shayy Reason for admission: Gross Hematuria History of Present Illness: Mr. Jacobo is a 72-year-old male prison resident with past medical history of hypertension, hyperlipidemia, DM 2, and CAD/CVA on aspirin and Plavix, chronic indwelling urethral marcum catheter presented to the emergency department with complaints of intermittent suprapubic discomfort and gross hematuria. Urine is positive for UTI but no other significant lab abnormalities. CT showed "Rounded filling defect in the bladder likely representing hemorrhage. Bladder wall thickening also noted which could be infection/inflammation or chronic blad jolene outlet obstruction." He was evaluated by Dr. Mcgrath while in the ED, catheter was exchanged, and continuous bladder irrigation was performed removing a burden of clot. Urine now light pink/clear with CBI. We will admit for further management of gross hematuria secondary to UTI. Allergies zolpidem [From Ambien] Adverse Reaction (Verified 05/27/18 21:13) hallucinates Home medications list reviewed: Yes Home Medications: Aspirin Chewable [Aspirin Chewable*] 81 mg PO DAILY tab.chew 06/11/18 Clopidogrel Bisulfate [Plavix*] 75 mg PO DAILY tablet 06/11/18 Ezetimibe [Zetia*] 10 mg PO DAILY tab 06/11/18 Irbesartan [Avapro*] 150 mg PO DAILY tab 06/11/18 Metoprolol Succinate [Toprol Xl*] 25 mg PO BID 6AM 6PM tab 06/11/18 Rosuvastatin [Crestor*] 20 mg PO BEDTIME tab 06/11/18 Tolterodine Tartrate [Detrol LA*] 4 mg PO DAILY cap 06/11/18 Tresiba 50 Units 50 units SQ BEDTIME 06/11/18 Metformin ER [Glucophage ER] 1,000 mg PO DAILY 03/06/20 Repaglinide [Prandin] 1 tab PO Q6H 03/06/20 Carbidopa/Levodopa 25-100 [Sinemet 25-100*] 1 tab PO TID #90 tab 03/08/20 Escitalopram Oxalate [Lexapro] 10 mg PO DAILY #30 tablet 03/08/20 levoFLOXacin [Levaquin] 500 mg PO DAILY #10 tab 03/08/20 - Past Medical/Surgical History Diabetic: Yes -: Diabetes mellitus type 2insulin-dependent -: Hypertension -: Coronary artery disease -: Hyperlipidemia -: Parkinson's -: CABG -: bilateral knee sx -: cholecystectomy Psychosocial/ Personal History: Patient lives at [facility]. - Family History Family History: Reviewed- Non-Contributory - Social History Alcohol use: No CD- Drugs: No Caffeine use: Yes Place of Residence: [facility] Review of Systems 10-point ROS is otherwise unremarkable Genitourinary: Hematuria, As per HPI Physical Examination - Vital Signs Temperature: 98.8 F Blood Pressure: 114/93 Pulse: 115 Respirations: 14 Pulse Ox (%): 95 - Physical Exam General: Alert, In no apparent distress HEENT: Atraumatic, EOMI, Sclerae nonicteric Neck: Supple, 2+ carotid pulse no bruit Respiratory: Clear to auscultation bilaterally, Normal air movement Cardiovascular: Regular rate/rhythm, Normal S1 S2 Gastrointestinal: Normal bowel sounds, No tenderness Musculoskeletal: No tenderness Integumentary: No rashes Neurological: Normal speech, Normal affect Urinary: Marcum catheter - Studies Laboratory Data (last 24 hrs) 01/08/23 01/08/23 15:38 15:38 WBC 13.50 H Hgb 10.7 L Hct 32.9 L Plt Count 458 H Sodium 133 L Potassium 4.2 BUN 17 Creatinine 0.68 L Glucose 233 H Total Bilirubin 0.3 AST 12 L ALT < 10 L Alkaline Phosphatase 104 Lipase 38 Assessment and Plan - Problems (Diagnosis) (1) UTI (urinary tract infection) Current Visit: Yes Status: Acute Qualifiers: Urinary tract infection type: catheter-associated UTI Indwelling urinary catheter type: indwelling urethral catheter Encounter type: initial encounter Qualified Code(s): T83.511A - Infection and inflammatory reaction due to indwelling urethral catheter, initial encounter; N39.0 - Urinary tract infection, site not specified (2) Diabetes mellitus Current Visit: Yes Status: Chronic Qualifiers: Diabetes mellitus type: type 2 Diabetes mellitus prison insulin use: without oil heaterman use Diabetes mellitus complication status: with hyperglycemia Qualified Code(s): E11.65 - Type 2 diabetes mellitus with hyperglycemia (3) HTN (hypertension) Current Visit: Yes Status: Chronic Qualifiers: Hypertension type: primary hypertension Qualified Code(s): I10 - Essential (primary) hypertension (4) CAD (coronary artery disease) Current Visit: Yes Status: Chronic Qualifiers: Coronary Disease-Associated Artery/Lesion type: bypass graft [place] vs. transplanted heart: [place] heart Associated angina: without angina Qualified Code(s): I25.810 - Atherosclerosis of coronary artery bypass graft(s) without angina pectoris (5) Sepsis Current Visit: Yes Status: Acute Qualifiers: Sepsis type: sepsis due to unspecified organism Sepsis acute organ dysfunction status: without acute organ dysfunction Qualified Code(s): A41.9 - Sepsis, unspecified organism - Plan Patient is admitted for further management of gross hematuria and sepsis secondary to catheter associated UTI. Zosyn for UTI, per urology recommendation. Blood and urine cultures obtained. Meets sepsis criteria. Continuous bladder irrigation with NS to keep urine light pink to clear and to prevent any further clot obstruction (see urology note). Repeat H&H pending, may require blood transfusion given the amount of hematuria he was having. Monitor and replete electrolytes per protocol. Reconcile and continue home medications. SCDs for VTE prophylaxis. Full code. Discharge Plan: [facility] Plan to discharge in: Greater than 2 days - Advance Directives Does patient have a Living Will: No Does patient have a Durable POA for Healthcare: No - Code Status/Comfort Care Code Status Assessed: Yes Code Status: Full Code Physician Review: Patient Assessed, Agree with Above Assessment and Plan Critical Care: No Time Spent Managing Pts Care (In Minutes): 50
--- NOTE | 2023-01-08 22:13 | P.CNS ---
Date of Consult: 01/08/23 Reason for Consult: Gross hematuria Chief Complaint: Blood in the urine History of Present Illness: 72-year-old gentleman group home resident with hypertension, hyperlipidemia, DM 2, and CAD versus h/o CVA on aspirin and Plavix, with chronic indwelling urethral Lagun[place] catheter developed suprapubic discomfort and gross hematuria yesterday. This apparently progressed to the passage of clots at which point he was brought to the emergency department. His catheter was exchanged in the emergency department and irrigation was performed removing a burden of clot, and they initiated CBI, without it being continuous. Patient was not very willing to communicate his medical history at the time of my evaluation. Examination: Patient seen at bedside with 20 [place] three-way urethral Lagunas catheter in place and single tubing CBI bag empty. Catheter draining pink urine. Traumatic hypospadias noted down to the penoscrotal junction CTAbdomen Pelvis W Contrast - 01/08/2023 4:50 pm FINDINGS: Lower chest: No acute abnormality. Mild circumferential thickened distal esophagus. Coronary artery calcifications Liver: Minimal intrahepatic biliary duct dilatation. No focal mass. Biliary: Cholecystectomy Stomach: No significant focal abnormality. Duodenum: No significant focal abnormality. Pancreas: No significant abnormality. Spleen: No significant abnormality. Adrenal: Bilateral adrenal myelolipomas. Unchanged 14 mm left adrenal nodule. Kidney/ureter: No hydronephrosis. No renal calculi. Too small to characterize and/or benign appearing renal lesions are noted. Retroperitoneum: No retroperitoneal adenopathy. Vascular: No aneurysm. Atherosclerosis Bowel: Normal appendix .. Diverticulosis without diverticulitis . Peritoneum: No ascites or free air. Tiny fat containing umbilical hernia. Small fat containing umbilical hernia Bladder: Bladder catheter. Rounded mass in the bladder likely representing hemorrhage.Bladder wall thickening is noted which is circumferential. Gas present within the bladder. Reproductive: No adnexal masses. Bones: No acute fracture. Multilevel degenerative changes are present in the spine. Other: n/a IMPRESSION: Rounded filling defect in the bladder likely representing hemorrhage. Bladder wall thickening also noted which could be infection/inflammation or chronic bladder outlet obstruction. Extensive bladder irrigation, urethral Lagunas catheter exchange, and CBI reinitiation procedure note: I attempted to irrigate the 20 [place] catheter with significant difficulty and inability to remove significant burden of clot. After a few attempts, the catheter did completely clog; so I deflated the balloon of 30 cc of sterile water and prepared to insert a new catheter. I then prepped his genitalia with Betadine and draped in standard fashion. Lidocaine Uro-Jet was applied int raurethrally for local anesthesia. I then passed a new 22 [place] three-way Lagunas catheter via his urethra into his bladder with ease with drainage promptly of approximately 700 to 800 cc of pink hematuria. 15 cc of sterile water was placed in the balloon. I then began to irrigate the catheter aggressively using a 60 cc catheter tip syringe and normal saline. A significant burden of formed clot was encountered and with lots of catheter manipulation, I was able to aspirate it and remove it from his bladder. After irrigating over 3 L of fluid, I finally read his bladder of all significant clot burden, and despite aggressive irrigation, I obtained no additional clots, and the return of irrigant fluid and urine was completely clear. As a result, I resumed CBI with normal saline at 1 drip per second, and I placed the catheter with approximately 10 cc to 15 cc of water pressure within his bladder, and the return of urine and fluid was crystal clear with respiratory variation observed indicative of absence of any catheter obstruction. I then observed the patient over the course of the next 15 to 30 minutes, and the drainage remained crystal-clear on slow drip CBI. As a result, I educated his emergency department nurse about the set up and asked her to share that information with the nurses who would be taking over his care, particularly the nurses that may take over his care on the floor. Assessment: 72-year-old gentleman group home resident with hypertension, hyperlipidemia, DM 2, and CAD versus h/o CVA on aspirin and Plavix with chronic indwelling Lagunas catheter associated cystitis likely underlying the development of gross hematuria with clot retention in the setting of catheter associated traumatic penoscrotal hypospadias. -Hopefully a urine culture was sent prior to the initiation of CBI -Until the results of that culture return, given the presence of a chronic indwelling Lagunas and thus potential for Pseudomonas, recommend antimicrobial therapy with cefepime or Zosyn, and if he has no recent history of antimicrobial exposure, he likely would respond well to the fluoroquinolones. -Outpatient follow-up required for cystoscopic evaluation of his bladder to rule out tumor or stone given the gross hematuria -He ultimately will require suprapubic catheter placement if the etiology of his urinary retention is not correctable -Meanwhile continue CBI with normal saline to keep urine light pink to clear. It is imperative that the bladder irrigation remain continuous, or clot obstruction may occur. If the CBI ever does run out for a period of time longer than 3 to 5 minutes, nursing should manually irrigate the bladder using a 60 cc catheter tip syringe and normal saline to remove any clot before simply resuming the CBI. Allergies zolpidem [From Ambien] Adverse Reaction (Verified 05/27/18 21:13) hallucinates Home medications list reviewed: Yes Home Medications: Aspirin Chewable [Aspirin Chewable*] 81 mg PO DAILY tab.chew 06/11/18 Clopidogrel Bisulfate [Plavix*] 75 mg PO DAILY tablet 06/11/18 Ezetimibe [Zetia*] 10 mg PO DAILY tab 06/11/18 Irbesartan [Avapro*] 150 mg PO DAILY tab 06/11/18 Metoprolol Succinate [Toprol Xl*] 25 mg PO BID 6AM 6PM tab 06/11/18 Rosuvastatin [Crestor*] 20 mg PO BEDTIME tab 06/11/18 Tolterodine Tartrate [Detrol LA*] 4 mg PO DAILY cap 06/11/18 Tresiba 50 Units 50 units SQ BEDTIME 06/11/18 Metformin ER [Glucophage ER] 1,000 mg PO DAILY 03/06/20 Repaglinide [Prandin] 1 tab PO Q6H 03/06/20 Carbidopa/Levodopa 25-100 [Sinemet 25-100*] 1 tab PO TID #90 tab 03/08/20 Escitalopram Oxalate [Lexapro] 10 mg PO DAILY #30 tablet 03/08/20 levoFLOXacin [Levaquin] 500 mg PO DAILY #10 tab 03/08/20 - Past Medical/Surgical History Diabetic: Yes -: Diabetes mellitus type 2insulin-dependent -: Hypertension -: Coronary artery disease -: Hyperlipidemia -: Parkinson's -: CABG -: bilateral knee sx -: cholecystectomy Psychosocial/ Personal History: Patient lives at home with family. - Social History Smoking Status: Current every day smoker Alcohol use: No CD- Drugs: No Caffeine use: Yes Physical Examination Laboratory Data (last 24 hrs) 01/08/23 01/08/23 15:38 15:38 WBC 13.50 H Hgb 10.7 L Hct 32.9 L Plt Count 458 H Sodium 133 L Potassium 4.2 BUN 17 Creatinine 0.68 L Glucose 233 H Total Bilirubin 0.3 AST 12 L ALT < 10 L Alkaline Phosphatase 104 Lipase 38 - Problems (1) Gross hematuria Current Visit: Yes Status: Acute (2) Clot retention of urine Current Visit: Yes Status: Acute (3) Hypospadias, penoscrotal Current Visit: Yes Status: Acute (4) Cystitis Current Visit: No Status: Acute Conclusions/Impression: See assessment and plan in [facility] Critical Care: No Time Spent Managing Pts care (In Minutes): 90
[2023-01-08] MEDS ORDERED: NA CHLORIDE 0.9% 50 ML ONE (22:27)
[2023-01-09 00:30] LABS: Hematocrit 30.4 % (39.6-49.0); MCV 80.3 fL (80-100); MPV 7.2 fL (7.6-11.3); Platelets 471 thou/uL (152-406); RBC Red Blood Cell Count 3.78 M/uL (4.33-5.43)
[2023-01-09] MEDS ORDERED: ONDANSETRON 4 MG/2 ML VIAL IV PRN (02:06)
[2023-01-09] MEDS ORDERED: ACETAMINOPHEN 500 MG TAB PO PRN (02:06)
[2023-01-09] MEDS ORDERED: PIPER TAZO 3.375 GM in NA CHLORIDE 0.9% 100 ML IV ONE (02:15)
[2023-01-09] MEDS ORDERED: NACL 0.9% IRR SOLN 4,000 ML IRR ONE ×3 (06:24→21:25)
[2023-01-09 07:07] LABS: Absolute Lymphocytes (CBC) 2.9 K/uL (0.7-4.9); Hematocrit 29.7 % (39.6-49.0); Lymphocytes % 20.7 % (15.3-44.8); MCV 80.7 fL (80-100); MPV 7.3 fL (7.6-11.3); Platelets 418 thou/uL (152-406); RBC Red Blood Cell Count 3.68 M/uL (4.33-5.43)
[2023-01-09 07:09] LABS: Protime INR 1.17
[2023-01-09 07:16] LABS: Magnesium 1.9 mg/dL (1.6-2.4); Phosphorus 4.1 mg/dL (2.5-4.9); Potassium 3.7 mEq/L (3.5-5.1)
[2023-01-09] MEDS: PIPER TAZO 3.375 GM in NA CHLORIDE 0.9% 100 ML IV SCH ×2 (09:18→17:07)
[2023-01-09] MEDS ORDERED: NACL 0.9% IRR SOLN 2,000 ML IRR ONE ×3 (10:18→19:01)
--- NOTE | 2023-01-09 14:42 | P.PN ---
Subjective Date of Service: 01/09/23 Primary Care Provider: Shayy Chief Complaint: Gross Hematuria Patient has no new complaint. His urine is now clear. Ongoing CBI. Physical Examination - Vital Signs Temperature: 97.1 F Blood Pressure: 93/64 Pulse: 102 Respirations: 18 Pulse Ox (%): 99 - Physical Exam General: Alert, In no apparent distress, Oriented x3 HEENT: Mucous membr. moist/pink, Sclerae nonicteric Neck: JVD not distended Respiratory: Clear to auscultation bilaterally, Normal air movement Cardiovascular: No edema, Regular rate/rhythm, Normal S1 S2 Gastrointestinal: Normal bowel sounds, Soft and benign, Non-distended, No tenderness Musculoskeletal: No swelling Integumentary: No cyanosis Neurological: Normal strength at 5/5 x4 extr Urinary: Other (Continuous bladder irrigation) - Studies Laboratory Data (last 24 hrs) 01/08/23 01/08/23 15:38 15:38 WBC 13.50 H Hgb 10.7 L Hct 32.9 L Plt Count 458 H Sodium 133 L Potassium 4.2 BUN 17 Creatinine 0.68 L Glucose 233 H Total Bilirubin 0.3 AST 12 L ALT < 10 L Alkaline Phosphatase 104 Lipase 38 Assessment And Plan - Current Problems (Diagnosis) (1) Clot retention of urine Current Visit: Yes Status: Acute (2) Gross hematuria Current Visit: Yes Status: Acute (3) UTI (urinary tract infection) Current Visit: Yes Status: Acute Qualifiers: Urinary tract infection type: catheter-associated UTI Indwelling urinary catheter type: indwelling urethral catheter Encounter type: initial encounter Qualified Code(s): T83.511A - Infection and inflammatory reaction due to indwelling urethral catheter, initial encounter; N39.0 - Urinary tract infectio n, site not specified (4) Diabetes mellitus Current Visit: Yes Status: Chronic Qualifiers: Diabetes mellitus type: type 2 Diabetes mellitus senior living insulin use: without relay associate use Diabetes mellitus complication status: with hyperglycemia Qualified Code(s): E11.65 - Type 2 diabetes mellitus with hyperglycemia (5) HTN (hypertension) Current Visit: Yes Status: Chronic Qualifiers: Hypertension type: primary hypertension Qualified Code(s): I10 - Essential (primary) hypertension (6) Sepsis Current Visit: Yes Status: Acute Qualifiers: Sepsis type: sepsis due to unspecified organism Sepsis acute organ dysfunction status: without acute organ dysfunction Qualified Code(s): A41.9 - Sepsis, unspecified organism - Plan Sepsis/UTI/acute cystitis with hematuria Sepsis secondary to UTI Continue aggressive antibiotics Follow urine culture and blood cultures. Hematuria/bladder outlet obstruction Urology Dr. Mcgrath input appreciated. Ongoing CBI Monitor for hematuria. Monitor H&H and transfuse as needed. Diabetes mellitus type 2 Insulin sliding scale for glucose management. Hold metformin Validate and reconcile other home antidiabetic regimen. DVT prophylaxis: SCD.
[2023-01-09 15:08] LABS: Absolute Lymphocytes (CBC) 2.6 K/uL (0.7-4.9); Hematocrit 29.5 % (39.6-49.0); Lymphocytes % 19.2 % (15.3-44.8); MCV 80.4 fL (80-100); MPV 7.3 fL (7.6-11.3); Platelets 424 thou/uL (152-406); RBC Red Blood Cell Count 3.67 M/uL (4.33-5.43)
[2023-01-09 20:07] LABS: Hematocrit 30.2 % (39.6-49.0); Lymphocytes % 24.4 % (15.3-44.8); MCV 80.5 fL (80-100); MPV 7.5 fL (7.6-11.3); Platelets 449 thou/uL (152-406); RBC Red Blood Cell Count 3.75 M/uL (4.33-5.43)
[2023-01-09] MEDS: JUVEN PACKET PO SCH (21:00)
[2023-01-10] MEDS: PIPER TAZO 3.375 GM in NA CHLORIDE 0.9% 100 ML IV SCH ×2 (00:15→08:10)
[2023-01-10 03:45] LABS: Potassium 3.6 mEq/L (3.5-5.1)
[2023-01-10] MEDS ORDERED: NACL 0.9% IRR SOLN 4,000 ML IRR ONE (04:31)
[2023-01-10] MEDS: JUVEN PACKET PO SCH ×2 (08:10→21:00)
--- NOTE | 2023-01-10 15:31 | P.PN ---
Subjective Date of Service: 01/10/23 Primary Care Provider: Shayy Chief Complaint: Gross Hematuria Patient has no new complaint. His urine has been clear with CBI for more than 24 hours. No recorded fever. Physical Examination - Vital Signs Temperature: 97.3 F Blood Pressure: 104/56 Pulse: 80 Respirations: 18 Pulse Ox (%): 95 - Physical Exam General: Alert, In no apparent distress, Oriented x3 HEENT: Mucous membr. moist/pink Neck: Supple, JVD not distended Respiratory: Clear to auscultation bilaterally, Normal air movement Cardiovascular: No edema, Regular rate/rhythm, Normal S1 S2 Gastrointestinal: Soft and benign, Non-distended Integumentary: Other (Crusted vesicular rash-back) Neurological: Normal speech, Normal affect Assessment And Plan - Current Problems (Diagnosis) (1) Clot retention of urine Current Visit: Yes Status: Acute (2) Gross hematuria Current Visit: Yes Status: Acute (3) UTI (urinary tract infection) Current Visit: Yes Status: Acute Qualifiers: Urinary tract infection type: catheter-associated UTI Indwelling urinary catheter type: indwelling urethral catheter Encounter type: initial encounter Qualified Code(s): T83.511A - Infection and inflammatory reaction due to indwelling urethral catheter, initial encounter; N39.0 - Urinary tract infection, site not specified (4) Diabetes mellitus Current Visit: Yes Status: Chronic Qualifiers: Diabetes mellitus type: type 2 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 insulin use: without termite exterminator helper use Diabetes mellitus complication status: with hyperglycemia Qualified Code(s): E11.65 - Type 2 diabetes mellitus with hyperglycemia (5) HTN (hypertension) Current Visit: Yes Status: Chronic Qualifiers: Hypertension type: primary hypertension Qualified Code(s): I10 - Essential (primary) hypertension (6) Sepsis Current Visit: Yes Status: Acute Qualifiers: Sepsis type: sepsis due to unspecified organism Sepsis acute organ dysfunction status: without acute organ dysfunction Qualified Code(s): A41.9 - Sepsis, unspecified organism - Plan Sepsis/UTI/acute cystitis with hematuria Sepsis secondary to UTI. Urine culture done at the [facility] grew multiple organisms including Enterococcus faecalis, E. coli, Klebsiella pneumonia and Nicole albicans. Bacterial growth reported as ESBL. Change antibiotics to IV Merrem Blood cultures: No growth to date. Hematuria/bladder outlet obstruction Urology Dr. Mcgrath input appreciated. Urine has cleared up. Stop CBI per urology. Antibiotics as above Monitor H&H and transfuse as needed. Diabetes mellitus type 2 Insulin sliding scale for glucose management. Hold metformin DVT prophylaxis: SCD.
[2023-01-10] MEDS: Meropenem 1,000 MG in NA CHLORIDE 0.9% 100 ML IV SCH (17:00)
[2023-01-10] MEDS: FLUCONAZOLE 200mg IVPB 200 MG/100 ML BAG IV SCH (21:00)
[2023-01-10] MEDS: CARBIDOPA/LEVODOPA 25/100 TAB PO SCH (22:11)
[2023-01-11] MEDS: Meropenem 1,000 MG in NA CHLORIDE 0.9% 100 ML IV SCH ×3 (00:31→17:05)
[2023-01-11 03:37] LABS: Potassium 3.8 mEq/L (3.5-5.1)
[2023-01-11 03:46] LABS: Absolute Lymphocytes (CBC) 3.6 K/uL (0.7-4.9); Hematocrit 27.1 % (39.6-49.0); Lymphocytes % 29.7 % (15.3-44.8); MCV 79.9 fL (80-100); MPV 7.5 fL (7.6-11.3); Platelets 434 thou/uL (152-406); RBC Red Blood Cell Count 3.39 M/uL (4.33-5.43)
[2023-01-11] MEDS: CARBIDOPA/LEVODOPA 25/100 TAB PO SCH ×3 (08:57→21:29)
[2023-01-11] MEDS: JUVEN PACKET PO SCH ×2 (08:58→21:00)
--- NOTE | 2023-01-11 12:52 | P.PN ---
Subjective Date of Service: 01/11/23 Primary Care Provider: Shayy Chief Complaint: Gross Hematuria Subjective: Improving (no issues) He suggests he has had the catheter since February this year but he does not know why it was placed. He also does not know if he had a stroke or not. Physical Examination - Vital Signs Temperature: 99.4 F Blood Pressure: 114/66 Pulse: 84 Respirations: 16 Pulse Ox (%): 95 - Physical Exam General: Alert, In no apparent distress HEENT: Atraumatic, Mucous membr. moist/pink Urinary: Lagunas catheter (with clear yellow urine off CBI) Assessment And Plan - Current Problems (Diagnosis) (1) Gross hematuria Current Visit: Yes Status: Resolved (2) Clot retention of urine Current Visit: Yes Status: Resolved (3) Hypospadias, penoscrotal Current Visit: Yes Status: Acute (4) Cystitis Current Visit: No Status: Acute - Plan 72-year-old gentleman detention resident with hypertension, hyperlipidemia, DM 2, and CAD versus h/o CVA on aspirin and Plavix with chronic indwelling Lagunas catheter associated cystitis likely underlying the development of gross hematuria with clot retention in the setting of catheter associated traumatic penoscrotal hypospadias p 3-way Lagunas placement and aggressive bedside irrigation now with clear urine off CBI x >24 hours. -Beta strep seen on preliminary urine culture -Outpatient follow-up required for cystoscopic evaluation of his bladder to rule out tumor or stone given the gross hematuria -He ultimately will require suprapubic catheter placement if the etiology of his urinary retention is not correctable given the traumatic hypospadias Physician Review: Patient Assessed, Agree with Above Assessment and Plan Time Spent Managing PTS Care (In Minutes): 15
--- NOTE | 2023-01-11 15:49 | P.PN ---
Subjective Date of Service: 01/11/23 Primary Care Provider: Shayy Chief Complaint: Gross Hematuria Patient has no new complaint. His urine has been clear. Status post CBI No recorded fever. Physical Examination - Vital Signs Temperature: 99.4 F Blood Pressure: 114/66 Pulse: 84 Respirations: 16 Pulse Ox (%): 95 Assessment And Plan - Current Problems (Diagnosis) (1) Clot retention of urine Current Visit: Yes Status: Resolved (2) Gross hematuria Current Visit: Yes Status: Resolved (3) UTI (urinary tract infection) Current Visit: Yes Status: Acute Qualifiers: Urinary tract infection type: catheter-associated UTI Indwelling urinary c atheter type: indwelling urethral catheter Encounter type: initial encounter Qualified Code(s): T83.511A - Infection and inflammatory reaction due to indwelling urethral catheter, initial encounter; N39.0 - Urinary tract infection, site not specified (4) Diabetes mellitus Current Visit: Yes Status: Chronic Qualifiers: Diabetes mellitus type: type 2 Diabetes mellitus correction insulin use: without correction use Diabetes mellitus complication status: with hyperglycemia Qualified Code(s): E11.65 - Type 2 diabetes mellitus with hyperglycemia (5) HTN (hypertension) Current Visit: Yes Status: Chronic Qualifiers: Hypertension type: primary hypertension Qualified Code(s): I10 - Essential (primary) hypertension (6) Sepsis Current Visit: Yes Status: Acute Qualifiers: Sepsis type: sepsis due to unspecified organism Sepsis acute organ dysfunction status: without acute organ dysfunction Qualified Code(s): A41.9 - Sepsis, unspecified organism - Plan Sepsis/UTI/acute cystitis with hematuria Sepsis secondary to UTI. Urine culture done at [facility] grew multiple organisms including Enterococcus faecalis, E. coli, Klebsiella pneumonia and Nicole albicans. Bacterial growth reported as ESBL. Urine culture done here during beta-hemolytic strept Continue IV Merrem for now. Blood cultures: No growth to date. Hematuria/bladder outlet obstruction Urology Dr. Mcgrath input appreciated. Urine has cleared up. Status post CBI. Maintain Lagunas catheter. Follow-up with Dr. Mcgrath as outpatient. Antibiotics as above Monitor H&H and transfuse as needed. Acute on chronic anemia due to blood loss Hemoglobin dropped from 10 to 9 and stabilized around 9. Diabetes mellitus type 2 Insulin sliding scale for glucose management. Hold metformin DVT prophylaxis: SCD.
[2023-01-11] MEDS: FLUCONAZOLE 200mg IVPB 200 MG/100 ML BAG IV SCH (21:29)
[2023-01-12] MEDS: Meropenem 1,000 MG in NA CHLORIDE 0.9% 100 ML IV SCH ×3 (01:01→16:19)
[2023-01-12 06:23] VITALS: BMI 27.2
[2023-01-12] MEDS: JUVEN PACKET PO SCH ×2 (08:31→20:15)
[2023-01-12] MEDS: CARBIDOPA/LEVODOPA 25/100 TAB PO SCH ×3 (08:31→20:15)
--- NOTE | 2023-01-12 16:55 | P.PN ---
Subjective Date of Service: 01/12/23 Primary Care Provider: Shayy Chief Complaint: Gross Hematuria Patient has no new complaint. Clear Urine Status post CBI No recorded fever. Good oral intake. Physical Examination - Vital Signs Temperature: 98.1 F Blood Pressure: 124/68 Pulse: 75 Respirations: 16 Pulse Ox (%): 95 - Studies Microbiology Data (last 24 hrs): 01/08/23 15:40 Clean Catch Urine [place] Count - Final >100,000 CFU/ML. 01/08/23 15:40 Clean Catch Urine - Final Streptococcus Dysgalactiae Assessment And Plan - Current Problems (Diagnosis) (1) Clot retention of urine Current Visit: Yes Status: Resolved (2) Gross hematuria Current Visit: Yes Status: Resolved (3) UTI (urinary tract infection) Current Visit: Yes Status: Acute Qualifiers: Urinary tract infection type: catheter-associated UTI Indwelling urinary catheter type: indwelling urethral catheter Encounter type: initial encounter Qualified Code(s): T83.511A - Infection and inflammatory reaction due to indwelling urethral catheter, initial encounter; N39.0 - Urinary tract infection, site not specified (4) Diabetes mellitus Current Visit: Yes Status: Chronic Qualifiers: Diabetes mellitus type: type 2 Diabetes mellitus fpc insulin use: without longshore equipment operator use Diabetes mellitus complication status: with hyperglycemia Qualified Code(s): E11.65 - Type 2 diabetes mellitus with hyperglycemia (5) HTN (hypertension) Current Visit: Yes Status: Chronic Qualifiers: Hypertension type: primary hypertension Qualified Code(s): I10 - Essential (primary) hypertension (6) Sepsis Current Visit: Yes Status: Acute Qualifiers: Sepsis type: sepsis due to unspecified organism Sepsis acute organ dysfunction status: without acute organ dysfunction Qualified Code(s): A41.9 - Sepsis, unspecified organism - Plan Physical Exam General: Alert, In no apparent distress, Oriented x3 Neck: Supple, JVD not distended Respiratory: Clear to auscultation bilaterally, Normal air movement Cardiovascular: No edema, Regular rate/rhythm, Normal S1 S2 Gastrointestinal: Soft and benign, Non-distended Integumentary: Other (Crusted vesicular rash-back) Genitourinary: Lagunas catheter in place. Neurological: Normal speech, Normal affect Assessment and plan Sepsis/UTI/acute cystitis with hematuria Sepsis secondary to UTI. Urine culture done at the alf grew multiple organisms including Enterococcus faecalis, E. coli, Klebsiella pneumonia and Nicole albicans. Bacterial growth reported as ESBL. Urine culture done here during beta-hemolytic strept Continue IV Merrem for now. Infectious disease consult to assist with outpatient antibiotics. Blood cultures: No growth to date. Hematuria/bladder outlet obstruction/hypospadias Urology Dr. Mcgrath input appreciated. Urine has cleared up. Status post CBI. Maintain Lagunas catheter. Follow-up with Dr. Mcgrath as outpatient. Antibiotics as above Monitor H&H and transfuse as needed. Acute on chronic anemia due to blood loss Hemoglobin dropped from 10 to 9 and stabilized around 9. Monitor and transfuse as needed for hemoglobin less than 7. Diabetes mellitus type 2 Insulin sliding scale for glucose management. Hold metformin DVT prophylaxis: SCD.
[2023-01-13] MEDS: Meropenem 1,000 MG in NA CHLORIDE 0.9% 100 ML IV SCH ×2 (00:43→11:08)
[2023-01-13] MEDS: JUVEN PACKET PO SCH ×2 (09:00→21:00)
[2023-01-13] MEDS: CARBIDOPA/LEVODOPA 25/100 TAB PO SCH ×3 (11:08→22:29)
[2023-01-13] MEDS ORDERED: ERTAPENEM SODIUM 1 GM VIAL IVPB SCH (15:00)
--- NOTE | 2023-01-13 16:31 | P.DS ---
Admission Date: 01/08/23 Discharge Date: 01/13/23 Primary Care Provider: Shayy Disposition: TRANSFER TO [facility] Discharge Condition: FAIR Reason for Admission: Gross Hematuria - Problems (1) Clot retention of urine Current Visit: Yes Status: Resolved (2) Gross hematuria Current Visit: Yes Status: Resolved (3) UTI (urinary tract infection) Current Visit: Yes Status: Acute Qualifiers: Urinary tract infection type: catheter-associated UTI Indwelling urinary catheter type: indwelling urethral catheter Encounter type: initial encounter Qualified Code(s): T83.511A - Infection and inflammatory reaction due to indwelling urethral catheter, initial encounter; N39.0 - Urinary tract infection, site not specified (4) Diabetes mellitus Current Visit: Yes Status: Chronic Qualifiers: Diabetes mellitus type: type 2 Diabetes mellitus mcc insulin use: without mcc use Diabetes mellitus complication status: with hyperglycemia Qualified Code(s): E11.65 - Type 2 diabetes mellitus with hyperglycemia (5) HTN (hypertension) Current Visit: Yes Status: Chronic Qualifiers: Hypertension type: primary hypertension Qualified Code(s): I10 - Essential (primary) hypertension (6) Sepsis Current Visit: Yes Status: Acute Qualifiers: Sepsis type: sepsis due to unspecified organism Sepsis acute organ dysfunction status: without acute organ dysfunction Qualified Code(s): A41.9 - Sepsis, unspecified organism Brief History of Present Illness: Mr. Jacobo is a 72-year-old male [facility] resident with past medical history of hypertension, hyperlipidemia, DM 2, and CAD/CVA on aspirin and Plavix, chronic indwelling urethral marcum catheter who presented to the emergency department with complaints of intermittent suprapubic discomfort and gross hematuria. Urinalysis was positive for UTI but no other significant lab abnormalities. CT showed "Rounded filling defect in the bladder likely representing hemorrhage. Bladder wall thickening also noted which could be infection/inflammation or chronic bladder outlet obstruction." He was evaluated by Dr. Mcgrath while in the ED, catheter was exchanged, and continuous bladder irrigation was performed removing a blood clot. Urine then became light pink/clear with CBI. Patient was admitted for further management. Hospital Course: Patient admitted to the medical floor and the following medical problems addressed: Sepsis/UTI/acute cystitis with hematuria Sepsis secondary to UTI. Urine culture done at the [facility] grew multiple organisms including Enterococcus faecalis, E. coli, Klebsiella pneumonia and Nicole albicans. Bacterial growth reported as ESBL. Urine culture done here during beta-hemolytic strept. Continue IV Merrem for now. Infectious disease consult to assist with outpatient antibiotics. Blood cultures: No growth to date. Hematuria/bladder outlet obstruction/hypospadias Urology Dr. Mcgrath input appreciated. Urine has cleared up. Status post CBI. Maintain Marcum catheter. Follow-up with Dr. Mcgrath as outpatient. Antibiotics as above Monitor H&H and transfuse as needed. Sacral decubitus ulcer Wound care consulted Local wound care done Acute on chronic anemia due to blood loss Hemoglobin dropped from 10 to 9 and stabilized around 9. Monitor and transfuse as needed for hemoglobin less than 7. Diabetes mellitus type 2 Insulin sliding scale for glucose management during the hospital stay. Home diabetes regimen resumed on discharge. Vital Signs/Physical Exam: Temp Pulse Resp BP Pulse Ox 97.6 F 89 16 130/72 92 01/13/23 08:00 01/13/23 08:00 01/13/23 08:00 01/13/23 08:00 01/13/23 08:00 General: Alert, In no apparent distress, Oriented x3 HEENT: Mucous membr. moist/pink Neck: Supple, JVD not distended Respiratory: Clear to auscultation bilaterally, Normal air movement Cardiovascular: No edema, Regular rate/rhythm, Normal S1 S2 Gastrointestinal: Soft and benign, Non-distended Musculoskeletal: No swelling Integumentary: Other (Stage IV decubitus ulcer-sacrum) Neurological: Normal speech, Normal affect Laboratory Data at Discharge: WBC 12.20 thou/uL (4.3-10.9) H 01/11/23 02:11 Hgb 9.0 g/dL (13.6-17.9) L 01/11/23 02:11 Hct 27.1 % (39.6-49.0) L 01/11/23 02:11 Plt Count 434 thou/uL (152-406) H 01/11/23 02:11 PT 12.9 SECONDS (9.5-12.5) H 01/09/23 06:23 INR 1.17 01/09/23 06:23 APTT 33.5 SECONDS (24.3-36.9) 01/09/23 06:23 Sodium 136 mEq/L (136-145) 01/11/23 02:11 Potassium 3.8 mEq/L (3.5-5.1) 01/11/23 02:11 BUN 9 mg/dL (7-18) 01/11/23 02:11 Creatinine 0.59 mg/dL (0.70-1.30) L 01/11/23 02:11 Glucose 173 mg/dL (74-106) H 01/11/23 02:11 Phosphorus 4.1 mg/dL (2.5-4.9) 01/09/23 06:23 Magnesium 1.9 mg/dL (1.6-2.4) 01/09/23 06:23 Total Bilirubin 0.3 mg/dL (0.2-1.0) 01/08/23 15:38 AST 12 U/L (15-37) L 01/08/23 15:38 ALT < 10 U/L (16-61) L 01/08/23 15:38 Alkaline Phosphatase 104 U/L (45-117) 01/08/23 15:38 Lipase 38 U/L (13-75) 01/08/23 15:38 Home Medications: Aspirin Chewable [Aspirin Chewable*] 81 mg PO DAILY tab.chew 06/11/18 Clopidogrel Bisulfate [Plavix*] 75 mg PO DAILY tablet 06/11/18 Ezetimibe [Zetia*] 10 mg PO DAILY tab 06/11/18 Irbesartan [Avapro*] 150 mg PO DAILY tab 06/11/18 Metoprolol Succinate [Toprol Xl*] 25 mg PO BID 6AM 6PM tab 06/11/18 Rosuvastatin [Crestor*] 20 mg PO BEDTIME tab 06/11/18 Tresiba 50 Units 50 units SQ BEDTIME 06/11/18 Metformin ER [Glucophage ER*] 1,000 mg PO DAILY 03/06/20 Repaglinide [Prandin] 1 tab PO Q6H 03/06/20 Carbidopa/Levodopa 25-100 [Sinemet 25-100*] 1 tab PO TID #90 tab 03/08/20 Escitalopram Oxalate [Lexapro] 10 mg PO DAILY #30 tablet 03/08/20 Ertapenem Na [Invanz] 1 gm IVPB Q24H vial 01/13/23 Jonathan [Jonathan*] 1 pkt PO BID 01/13/23 Diet: ADA Activity: Fall precautions Followup: Kevin Valenzuela MD [Primary Care Provider] - 1-2 Weeks Time spent managing pt's care (in minutes): 36
--- NOTE | 2023-01-13 17:13 | P.PN ---
Subjective Date of Service: 01/13/23 Primary Care Provider: Shayy Chief Complaint: Gross Hematuria Patient has no new complaint. Clear Urine Status post CBI He is eating well. Physical Examination - Vital Signs Temperature: 97.6 F Blood Pressure: 130/72 Pulse: 89 Respirations: 16 Pulse Ox (%): 92 Assessment And Plan - Current Problems (Diagnosis) (1) Clot retention of urine Current Visit: Yes Status: Resolved (2) Gross hematuria Current Visit: Yes Status: Resolved (3) UTI (urinary tract infection) Current Visit: Yes Status: Acute Qualifiers: Urinary tract infection type: catheter-associated UTI Indwelling urinary catheter type: indwelling urethral catheter Encounter type: initial encounter Qualified Code(s): T83.511A - Infection and inflammatory reaction due to indwelling urethral catheter, initial encounter; N39.0 - Urinary tract infection, site not specified (4) Diabetes mellitus Current Visit: Yes Status: Chronic Qualifiers: Diabetes mellitus type: type 2 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: without fci use Diabetes mellitus complication status: with hyperglycemia Qualified Code(s): E11.65 - Type 2 diabetes mellitus with hyperglycemia (5) HTN (hypertension) Current Visit: Yes Status: Chronic Qualifiers: Hypertension type: primary hypertension Qualified Code(s): I10 - Essential (primary) hypertension (6) Sepsis Current Visit: Yes Status: Acute Qualifiers: Sepsis type: sepsis due to unspecified organism Sepsis acute organ dysfunction status: without acute organ dysfunction Qualified Code(s): A41.9 - Sepsis, unspecified organism - Plan Physical Exam General: Alert, In no apparent distress, Oriented x3 Respiratory: Clear to auscultation bilaterally, Normal air movement Cardiovascular: No edema, Regular rate/rhythm, Normal S1 S2 Gastrointestinal: Soft and benign, Non-distended Integumentary: Other (Crusted vesicular rash-back), stage IV sacral decubitus ulcer. Genitourinary: Lagunas catheter in place. Neurological: Normal speech, Normal affect Assessment and plan Sepsis/UTI/acute cystitis with hematuria Sepsis secondary to UTI. Urine culture done at the intermediate grew multiple organisms including Enterococcus faecalis, E. coli, Klebsiella pneumonia and Nicole albicans. Bacterial growth reported as ESBL. Urine culture done here during beta-hemolytic strept. Case discussed with infectious disease who recommended to treat patient with IV meropenem and transition to Invanz for outpatient therapy. Blood cultures: No growth to date. Clinically stable for discharge. Hematuria/bladder outlet obstruction/hypospadias Urology Dr. Mcgrath input appreciated. Urine has cleared up. Status post CBI. Maintain Lagunas catheter. Follow-up with Dr. Mcgrath as outpatient. Antibiotics as above Hemoglobin has been relatively stable. Acute on chronic anemia due to blood loss Hemoglobin dropped from 10 to 9 and stabilized around 9. Monitor and transfuse as needed for hemoglobin less than 7. Diabetes mellitus type 2 Insulin sliding scale for glucose management. Hold metformin and repaglinide. Sacral decubitus ulcer stage IV Local wound care. DVT prophylaxis: SCD.
[2023-01-13 23:29] VITALS: O2SAT 94
[2023-01-14 08:30] VITALS: BP 128/84; TEMP 97.5
[2023-01-14] MEDS: CARBIDOPA/LEVODOPA 25/100 TAB PO SCH (08:49)
[2023-01-14] MEDS: JUVEN PACKET PO SCH (08:49)
--- NOTE | 2023-01-14 09:03 | P.CNS ---
Date of Consult: 01/14/23 Reason for Consult: Complicated UTI Primary Care Provider: Shayy Chief Complaint: Gross Hematuria History of Present Illness: Patient is a 72-year-old male with a past medical history of diabetes mellitus type 2, hypertension, hyperlipidemia, CAD/CVA, chronic indwelling urethral Lagunas catheter who presented to the ED with complaints of suprapubic discomfort and hematuria. CT abdomen pelvis showed "rounded filling defect in the bladder likely representing hemorrhage. Bladder wall thickening also noted which could be infection/inflammation or chronic bladder outlet obstruction." Urology Dr. Mcgrath was consulted; catheter was exchanged and continuous bladder irrigation was performed in the ED. Patient was admitted for gross hematuria secondary to urinary tract infection. Infectious disease was consulted. Allergies zolpidem [From Ambien] Adverse Reaction (Verified 05/27/18 21:13) hallucinates Home medications list reviewed: Yes Home Medications: Aspirin Chewable [Aspirin Chewable*] 81 mg PO DAILY tab.chew 06/11/18 Clopidogrel Bisulfate [Plavix*] 75 mg PO DAILY tablet 06/11/18 Ezetimibe [Zetia*] 10 mg PO DAILY tab 06/11/18 Irbesartan [Avapro*] 150 mg PO DAILY tab 06/11/18 Metoprolol Succinate [Toprol Xl*] 25 mg PO BID 6AM 6PM tab 06/11/18 Rosuvastatin [Crestor*] 20 mg PO BEDTIME tab 06/11/18 Tresiba 50 Units 50 units SQ BEDTIME 06/11/18 Metformin ER [Glucophage ER*] 1,000 mg PO DAILY 03/06/20 Repaglinide [Prandin] 1 tab PO Q6H 03/06/20 Carbidopa/Levodopa 25-100 [Sinemet 25-100*] 1 tab PO TID #90 tab 03/08/20 Escitalopram Oxalate [Lexapro] 10 mg PO DAILY #30 tablet 03/08/20 Ertapenem Na [Invanz] 1 gm IVPB Q24H vial 01/13/23 Jonathan [Jonathan*] 1 pkt PO BID 01/13/23 - Past Medical/Surgical History Diabetic: Yes -: Diabetes mellitus type 2insulin-dependent -: Hypertension -: Coronary artery disease -: Hyperlipidemia -: Parkinson's -: CABG -: bilateral knee sx -: cholecystectomy Psychosocial/ Personal History: Patient lives at [facility]. - Social History Smoking Status: Current every day smoker Alcohol use: No CD- Drugs: No Caffeine use: Yes [facility] Physical Examination Temp Pulse Resp BP Pulse Ox 97.5 F 100 H 16 128/84 96 01/14/23 08:00 01/14/23 08:00 01/14/23 08:00 01/14/23 08:00 01/14/23 08:00 General: In no apparent distress, Oriented x1 HEENT: Atraumatic, Normocephalic Neck: Supple Respiratory: Clear to auscultation bilaterally, Normal air movement Cardiovascular: No edema, Regular rate/rhythm Gastrointestinal: Normal bowel sounds, Soft and benign Integumentary: Pressure ulcer (stage 4 sacrum) Urinary: Lagunas catheter Laboratory data -Reviewed Microbiology data -Reviewed Imagings Data: -Reviewed Conclusions/Impression: Problem list Sepsis secondary to complicated urinary tract infection Hematuria Bladder outlet obstruction Acute on chronic anemia Diabetes mellitus type 2 Pressure ulcer stage IV sacrum Sepsis secondary to complicated urinary tract infection -Chronic indwelling Lagunas catheter -Blood cultures 01/08: No growth to date up to coccus -Urine culture 01/09: Escherichia coli and Streptococcus dysgalactiae -Lagunas catheter replaced 01/08 -Previously on Zosyn (01/09) which was switched to meropenem on (01/10-01/13) -Currently on ertapenem (started 01/13) Hematuria Bladder outlet obstruction -Urology Dr. Lynn following Recommendations - Complicated UTI: Continue antibiotic therapy for 14 days. Started on Meropenem 01/10. Consider switch to Ertapenem upon discharge to complete remainder of antibiotic course. - urology also following. Follow up as outpatient. - pressure ulcer: pressure offloading measures, turn patient q2h wedge pillows, low air-loss mattress - wound care per wound care team Case discussed with Rochelle Cason
--- NOTE | 2023-01-14 09:18 | P.DS ---
Admission Date: 01/08/23 Discharge Date: 01/14/23 Primary Care Provider: Shayy Disposition: TRANSFER TO [facility] Discharge Condition: FAIR Reason for Admission: Gross Hematuria Consultations: Urology - Dr. Mcgrath ID - Dr. Perez Brief History of Present Illness: 72yo M, PMH: hypertension, hyperlipidemia, DM 2, and CAD/CVA on aspirin and Plavix, chronic indwelling urethral marcum catheter Patient presented to the emergency department with complaints of intermittent suprapubic discomfort and gross hematuria. Urine is positive for UTI but no other significant lab abnormalities. CT showed "Rounded filling defect in the bladder likely representing hemorrhage. Bladder wall thickening also noted which could be infection/inflammation or chronic bladder outlet obstruction." He was evaluated by Dr. Mcgrath while in the ED, catheter was exchanged, and continuous bladder irrigation was performed removing a burden of clot. Urine now light pink/clear with CBI. We will admit for further management of gross hematuria secondary to UTI. Hospital Course: Problem List: Sepsis secondary to UTI/acute cystitis Gross hematuria, improved Bladder outlet obstruction/hypospadias Acute on chronic anemia due to blood loss IDDM2 Hypertension Hyperlipidemia Sacral decubitus ulcer stage IV Patient presented with intermittent suprapubic discomfort and gross hematuria, chronic indwelling marcum cath. Patient was found to have Acute cystitis/UTI complicated by gross hematuria. Marcum replaced 01/08. ID and urology was consulted. Patient was given empiric merrem given multiple organisms growing from urine cx at intermediate including reported ESBL. Patient is to complete course of IV invanz on discharge. Midline placed on day of discharge. (01/14). Patient was feeling better, afebrile, leukocytosis improved, and was deemed stable for discharge. Dr. Mcgrath recommends for outpatient cystoscopic evaluation of his bladder to rule out tumor or stone given the gross hematuria. He ultimately will require suprapubic catheter placement if the etiology of his urinary retention is not correctable given the traumatic hypospadias. Medications: Invanz for 10 more days, to complete a total of 14 day antibiotic course. Started on Merrem on 01/10 Follow up: PCP 3-5 days Urology ~2 weeks Sepsis secondary to UTI/acute cystitis Sepsis secondary to UTI. Urine culture done at the intermediate grew multiple organisms including Enterococcus faecalis, E. coli, Klebsiella pneumonia and Nicole albicans. Bacterial growth reported as ESBL. Urine culture done here grew streptoccocus dysgalactiae Given IV Merrem this hospitalization Infectious disease consult to assist with outpatient antibiotics. Patient to transition to [facility] for outpatient therapy. Blood cultures: No growth to date. Hematuria/bladder outlet obstruction/hypospadias Urology Dr. Mcgrath input appreciated. Urine has cleared up. Status post CBI. Maintain Marcum catheter. Follow-up with Dr. Mcgrath as outpatient. Antibiotics as above Hemoglobin has been relatively stable. Sacral decubitus ulcer Wound care consulted Local wound care done Acute on chronic anemia due to blood loss Hemoglobin dropped from 10 to 9 and stabilized around 9. Monitor and transfuse as needed for hemoglobin less than 7. Diabetes mellitus type 2 Insulin sliding scale for glucose management during the hospital stay. Home diabetes regimen resumed on discharge. Physical Exam: GEN: Alert, oriented, NAD HEENT: Normal conjunctiva, sclera anicteric CV: Regular rate and rhythm, no edema Pulm: Nonlabored respirations on room air, clear bilaterally ABD: Soft, nontender, nondistended Integumentary: stage IV sacral decubitus ulcer Neuro: Normal speech, normal affect Chronic marcum in place; replaced 01/08 Vital Signs/Physical Exam: Temp Pulse Resp BP Pulse Ox 97.5 F 100 H 16 128/84 96 01/14/23 08:00 01/14/23 08:00 01/14/23 08:00 01/14/23 08:00 01/14/23 08:00 Laboratory Data at Discharge: WBC 12.20 thou/uL (4.3-10.9) H 01/11/23 02:11 Hgb 9.0 g/dL (13.6-17.9) L 01/11/23 02:11 Hct 27.1 % (39.6-49.0) L 01/11/23 02:11 Plt Count 434 thou/uL (152-406) H 01/11/23 02:11 PT 12.9 SECONDS (9.5-12.5) H 01/09/23 06:23 INR 1.17 01/09/23 06:23 APTT 33.5 SECONDS (24.3-36.9) 01/09/23 06:23 Sodium 136 mEq/L (136-145) 01/11/23 02:11 Potassium 3.8 mEq/L (3.5-5.1) 01/11/23 02:11 BUN 9 mg/dL (7-18) 01/11/23 02:11 Creatinine 0.59 mg/dL (0.70-1.30) L 01/11/23 02:11 Glucose 173 mg/dL (74-106) H 01/11/23 02:11 Phosphorus 4.1 mg/dL (2.5-4.9) 01/09/23 06:23 Magnesium 1.9 mg/dL (1.6-2.4) 01/09/23 06:23 Total Bilirubin 0.3 mg/dL (0.2-1.0) 01/08/23 15:38 AST 12 U/L (15-37) L 01/08/23 15:38 ALT < 10 U/L (16-61) L 01/08/23 15:38 Alkaline Phosphatase 104 U/L (45-117) 01/08/23 15:38 Lipase 38 U/L (13-75) 01/08/23 15:38 Home Medications: Aspirin Chewable [Aspirin Chewable*] 81 mg PO DAILY tab.chew 06/11/18 Clopidogrel Bisulfate [Plavix*] 75 mg PO DAILY tablet 06/11/18 Ezetimibe [Zetia*] 10 mg PO DAILY tab 06/11/18 Irbesartan [Avapro*] 150 mg PO DAILY tab 06/11/18 Metoprolol Succinate [Toprol Xl*] 25 mg PO BID 6AM 6PM tab 06/11/18 Rosuvastatin [Crestor*] 20 mg PO BEDTIME tab 06/11/18 Tresiba 50 Units 50 units SQ BEDTIME 06/11/18 Metformin ER [Glucophage ER*] 1,000 mg PO DAILY 03/06/20 Repaglinide [Prandin] 1 tab PO Q6H 03/06/20 Carbidopa/Levodopa 25-100 [Sinemet 25-100*] 1 tab PO TID #90 tab 03/08/20 Escitalopram Oxalate [Lexapro] 10 mg PO DAILY #30 tablet 03/08/20 Ertapenem Na [Invanz] 1 gm IVPB Q24H vial 01/13/23 Jonathan [Jonathan*] 1 pkt PO BID 01/13/23 Physician Discharge Instructions: Patient presented with intermittent suprapubic discomfort and gross hematuria, chronic indwelling marcum cath. Patient was found to have Acute cystitis/UTI complicated by gross hematuria. Marcum replaced 01/08. ID and urology was consulted. Patient was given empiric merrem given multiple organisms growing from urine cx at intermediate including reported ESBL. Patient is to complete course of IV invanz on discharge. Midline placed on day of discharge. (01/14). Patient was feeling better, afebrile, leukocytosis improved, and was deemed stable for discharge. Dr. Mcgrath recommends for outpatient cystoscopic evaluation of his bladder to rule out tumor or stone given the gross hematuria. He ultimately will require suprapubic catheter placement if the etiology of his urinary retention is not correctable given the traumatic hypospadias. Medications: Invanz for 10 more days, to complete a total of 14 day antibiotic course. Started on Merrem on 01/10 Follow up: PCP 3-5 days Urology ~2 weeks Diet: ADA Activity: Fall precautions Followup: Kevin Valenzuela MD [Primary Care Provider] - 1-2 Weeks Cirilo Mcgrath [ACTIVE - CAN ADMIT] - (within 2-4 weeks. ) Time spent managing pt's care (in minutes): 45
[2023-01-14] MEDS ORDERED: ERTAPENEM NA 1 GM in NA CHLORIDE 0.9% 100 ML IVPB ONE (09:20)
== END 2023-01-14 12:00 | DRG 698 ==
LOC: ER 14:43 → 2ND 22:00
PROVIDERS: ADMIT Internal Medicine; ATTEND Hospitalist
PROC: 0T2BX0Z Change Drainage Device in Bladder, External Approach (ICD-10-PCS; principal; 2023-01-08)
DX: T83.511A Infection and inflammatory reaction due to indwelling urethral catheter, initial encounter (principal); A41.51 Sepsis due to Escherichia coli [E. coli]; A41.81 Sepsis due to Enterococcus; L89.154 Pressure ulcer of sacral region, stage 4; I25.810 Atherosclerosis of coronary artery bypass graft(s) without angina pectoris; B37.41 Candidal cystitis and urethritis; Z16.12 Extended spectrum beta lactamase (ESBL) resistance; D62 Acute posthemorrhagic anemia; T83.83XA Hemorrhage due to genitourinary prosthetic devices, implants and grafts, initial encounter; E11.65 Type 2 diabetes mellitus with hyperglycemia; E78.00 Pure hypercholesterolemia, unspecified; I10 Essential (primary) hypertension; N32.0 Bladder-neck obstruction; J44.9 Chronic obstructive pulmonary disease, unspecified; Q54.2 Hypospadias, penoscrotal; G20.A1 Parkinson's disease without dyskinesia, without mention of fluctuations; I25.10 Atherosclerotic heart disease of native coronary artery without angina pectoris; F17.200 Nicotine dependence, unspecified, uncomplicated; B96.1 Klebsiella pneumoniae [K. pneumoniae] as the cause of diseases classified elsewhere; R33.9 Retention of urine, unspecified; Z88.8 Allergy status to other drugs, medicaments and biological substances; Z79.02 Long term (current) use of antithrombotics/antiplatelets; Z79.82 Long term (current) use of aspirin; Z86.73 Personal history of transient ischemic attack (TIA), and cerebral infarction without residual deficits; Z90.49 Acquired absence of other specified parts of digestive tract; Z79.899 Other long term (current) drug therapy; Y84.8 Other medical procedures as the cause of abnormal reaction of the patient, or of later complication, without mention of misadventure at the time of the procedure
CPT/HCPCS: 36415; 74177; 80048; 80053; 81001; 83605; 83690; 83735; 84100; 85025; 85027; 85610; 85730; 86850; 86900; 86901; 87040; 87070; 87077; 87086; 87088; 87186; 87205; 99285; J1335; J1450; J2185; J2405; J2543; J7030; Q9967

== ENCOUNTER 2023-04-28 08:00 | Inpatient (IN) | payer OTHER ==
[2023-04-28 08:44] LABS: Absolute Basophils 0.1 K/uL (0-0.5); Absolute Lymphocytes (CBC) 2.2 K/uL (0.7-4.9); Basophils % 0.7 % (0-1.3); Hematocrit 35.7 % (39.6-49.0); Lymphocytes % 18.4 % (15.3-44.8); MPV 7.3 fL (7.6-11.3); Platelets 361 thou/uL (152-406); RBC Red Blood Cell Count 4.69 M/uL (4.33-5.43)
[2023-04-28 08:52] LABS: Protime INR 1.18
[2023-04-28 09:03] LABS: Albumin 3.2 g/dL (3.4-5.0); Albumin/Globulin Ratio 0.7 (1.1-1.8); Anion Gap 9.2 mEq/L (5.0-15.0); Bilirubin Total 0.5 mg/dL (0.2-1.0); Potassium 4.2 mEq/L (3.5-5.1)
--- NOTE | 2023-04-28 09:42 | RAD REPORT ---
EXAM DESCRIPTION: CTAbdomen Pelvis W Contrast - 04/28/2023 9:24 am CLINICAL HISTORY: Abdominal pain. HEMATURIA COMPARISON: Abdomen Pelvis W Contrast dated 01/08/2023; Abdomen Pelvis W Contrast dated 03/04/2020 ; CT ABD PELVIS W CONTRAST dated 08/22/2008 TECHNIQUE: Biphasic CT imaging of the abdomen and pelvis was performed with 100 ml non-ionic IV cont rast. All CT scans are performed using dose optimization technique as appropriate and may include automated exposure control or mA/KV adjustment according to patient size. FINDINGS: The lung bases are clear.Cholecystectomy clips. The liver, spleen, pancreas, and kidneys are within normal limits. 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 No bowel obstruction, free air, free fluid or abscess. There is a large amount of stool throughout th e colon and within rectum. High density material is seen within the urinary bladder surrounding the F oley catheter, presumably blood product. The appendix is normal. No evidence of significant lymphade nopathy. Mild lumbar degenerative changes. IMPRESSION: There is significant fecal retention including suspected rectal fecal impaction. Increased density surrounding Lagunas catheter in the urinary bladder suggests blood product.
[2023-04-28 10:29] LABS: Urine Bacteria None Seen /HPF (<20); Urine RBC >50 /HPF (None Seen)
[2023-04-28] MEDS ORDERED: CEFTRIAXONE 1000 MG/VIAL ONE (12:14)
[2023-04-28] MEDS ORDERED: NA CHLORIDE 0.9% 100 ML ONE (12:14)
[2023-04-28] MEDS ORDERED: NACL 0.9% IRR SOLN 2,000 ML IRR ONE ×3 (12:29→17:55)
[2023-04-28] MEDS ORDERED: FENTANYL CITR 100 MCG/2 ML ONE (12:56)
--- NOTE | 2023-04-28 13:58 | EDPHYS ---
Physician Documentation [facility] Name: Dominic Jacobo Age: 73 yrs Sex: Male : 1950 Arrival Date: 04/28/2023 Time: 08:00 Bed 17 Private MD: ED Physician Lito Sena HPI: 04/27 08:23 This 73 yrs old Male presents to ER via EMS with complaints of Blood In Catheter. sb4 08:24 The patient presents with a Marcum catheter problem, draining bloody urine. Onset: The sb4 symptoms/episode began/occurred 4 day(s) ago. Modifying factors: The symptoms are alleviated by nothing, the symptoms are aggravated by nothing. Associated signs and symptoms: The patient has no apparent associated signs or symptoms. The patient has experienced a previous episode. The patient has not recently seen a physician. patient with chronic indwelling marcum catheter presents with gross hematuria sent from retirement. patient has no complaints at this time. he is on aspirin and plavix. Historical: - Allergies: 08:13 ambien; ap3 08:38 Promethazine; sb4 - PMHx: 08:13 CAD; Chronic obstructive lung disease; Diabetes - NIDDM; High Cholesterol; ap3 Hypertension; UTI (Hypertension); - Immunization history:: Client reports receiving the 2nd dose of the Covid vaccine. - Social history:: Smoking status: unknown. ROS: 08:24 Constitutional: Negative for fever, chills, and weight loss, sb4 08:24 : Positive for hematuria, 08:24 All other systems are negative, Exam: 08:24 Constitutional: This is a well developed, well nourished patient who is awake, alert, sb4 and in no acute distress. Head/Face: Normocephalic, atraumatic. Eyes: Extra-ocular motions intact. Periorbital areas with no swelling, redness, or edema. ENT: Mucous membranes moist. Cardiovascular: Regular rate and rhythm with a normal S1 and S2. Respiratory: Lungs have equal breath sounds bilaterally, clear to auscultation and percussion. No rales, rhonchi or wheezes noted. No increased work of breathing, no retractions or nasal flaring. Abdomen/GI: Soft, non-tender, no distension. Skin: Warm, dry with normal turgor. Normal color with no rashes, no lesions, and no evidence of cellulitis. MS/ Extremity: Pulses equal, no cyanosis. Neurovascular intact. Full, normal range of motion. Neuro: Awake and alert, GCS 15, oriented to person, place, time, and situation. Motor strength 5/5 in all extremities. Sensory grossly intact. 08:25 : a marcum is noted, urine is noted to have victorino blood, sb4 Vital Signs: 08:10 BP 120 / 67; Pulse 88; Resp 18; Temp 98.2; Pulse Ox 100% ; Weight 87.54 kg; ap3 12:00 BP 106 / 56; Pulse 90; Resp 16; Pulse Ox 99% ; bp 13:52 BP 143 / 92; Pulse 138; Resp 24; Temp 100.4; Pulse Ox 95% ; ap3 15:08 BP 133 / 87; Pulse 116; Resp 15 S; Temp 97.6(TE); Pulse Ox 98% on R/A; as6 15:44 BP 133 / 87; Pulse 98; Resp 16 S; Pulse Ox 95% on R/A; as6 MDM: 08:08 Patient medically screened. sb4 08:25 Differential diagnosis: UTI, urinary retention, Marcum catheter problem, prostatitis, sb4 urethritis, nephrolithiasis. 11:43 External Records Reviewed: Inpatient record: prior urine culture grew ecoli with sb4 sensitivity to 3rd gen cephalosporins. 13:39 Data reviewed: vital signs, nurses notes, retirement records, lab test result(s), sb4 radiologic studies, and as a result, I will discharge patient. Consideration of Admission/Observation Escalation of care including admission/observation considered. Historians other than the Patient: Family Member: sister. Care significantly affected by the following chronic conditions: Diabetes, Hypertension, Chronic Obstructive Pulmonary Disease. Counseling: I had a detailed discussion with the patient and/or guardian regarding the historical points, exam findings, and any diagnostic results supporting the discharge/admit diagnosis, the presence of at least one elevated blood pressure reading (>120/80) during this emergency department visit, lab results, radiology results, the need for outpatient follow up, a urologist, to return to the emergency department if symptoms worsen or persist or if there are any questions or concerns that arise at home. ED course: marcum replaced with 3 way, bladder currently being irrigated, draining pink urine. 14:05 ED course: patient initially did not meet sepsis criteria, plan was to discharge home sb4 with PO antibiotics. urine does not show clear infection however has history of UTIs with previous urine results. IV rocephin administered. later, patient decompensated- HR, temp, and RR increased, meeting sepsis criteria. will obtain blood culture x 2 and lactate and admit to hospital. 14:44 ED course: lactate 1.7, severe sepsis criteria not met. will continue with current plan 4 of care.. 04/27 08:16 Order name: CBC with Diff; Complete Time: 08:55 sb4 04/27 08:16 Order name: CMP; Complete Time: 09:05 sb4 04/27 08:16 Order name: Urine Culture [facility] 04/27 08:16 Order name: PT-INR; Complete Time: 08:55 sb 04/27 08:16 Order name: Ptt, Activated; Complete Time: 08:55 [facility] 04/27 10:27 Order name: Urine Microscopic Only; Complete Time: 10:34 [facility] 04/27 13:53 Order name: Blood Culture Adult (2) [facility] 04/27 13:53 Order name: Lactate w/ 2H reflex if indic.; Complete Time: 14:39 sb4 04/27 15:30 Order name: CBC with Automated Diff [facility] 04/27 15:30 Order name: CBC with Automated Diff [facility] 04/27 15:30 Order name: Comprehensive Metabolic Panel [facility] 04/27 15:30 Order name: Comprehensive Metabolic Panel [facility] 04/27 15:30 Order name: Protime (+INR) [facility] 04/27 15:30 Order name: Protime (+INR) [facility] 04/27 15:30 Order name: PTT, Activated Partial Thromb [facility] 04/27 15:30 Order name: PTT, Activated Partial Thromb [facility] 04/27 08:38 Order name: CT Abd/Pelvis - IV Contrast Only; Complete Time: 09:43 sb4 04/27 15:30 Order name: CONS Physician Consult [facility] 04/27 08:16 Order name: IV Saline Lock; Complete Time: 09:04 sb4 04/27 08:16 Order name: Labs collected and sent; Complete Time: 09:04 sb4 04/27 08:16 Order name: Misc. Order: replace marcum; Complete Time: 12:12 sb4 04/27 10:41 Order name: Three way - marcum cath; Complete Time: 12:06 sb4 04/27 10:51 Order name: Three way marcum irrigation; Complete Time: 12:05 sb4 Administered Medications: 12:00 Drug: Rocephin IV 1 grams IV at calculated rate once; Given slow IV push per pharmacy bp instructions Route: IV; Rate: calculated rate; Site: right forearm; 16:15 Follow up: Response: No adverse reaction; IV Status: Completed infusion; IV Intake: [id number] 12:38 Drug: Uromatic Irrigation - NS 0.9% IV 2000 ml 2000 ml IV at calculated rate once bp Volume: 2000 ml; Route: IV; Rate: calculated rate; Site: Other; 16:15 Follow up: Urine output 2000 ml; Response: No adverse reaction; IV Status: Completed as6 infusion; IV Intake: 2000ml 13:04 Drug: fentaNYL (PF) IVP 25 mcg IVP once Route: IVP; Site: right wrist; ap3 13:38 Follow up: Response: No adverse reaction; Pain is decreased; RASS: Alert and Calm (0) ap3 13:56 Drug: fentaNYL (PF) IVP 25 mcg IVP once Route: IVP; Site: right wrist; ap3 14:14 Follow up: Response: No adverse reaction ap3 14:25 Drug: Acetaminophen PO 1000 mg PO once Route: PO; as6 16:15 Follow up: Response: No adverse reaction as6 14:25 Drug: NS 0.9% IV 1000 ml IV at 1 bolus Per protocol; 1000 mL bolus Route: IV; Rate: 1 as6 bolus; Site: left forearm; 16:14 Follow up: Response: No adverse reaction; IV Status: Completed infusion; IV Intake: as6 1000ml Disposition: 09:49 I was immediately available on-site in the Emergency Department for consultation in the ms3 care of the patient. Disposition Summary: 04/28/23 13:57 Hospitalization Ordered Notes: Hospitalization Status: Inpatient Admission sb4 Provider: Dash Mathews Condition: Fair sb4 Problem: new sb4 Symptoms: have worsened sb4 Bed/Room Type: Standard sb4 Location: Intensive Care Unit(04/28/23 15:41) ja1 Room Assignment: 2-(04/28/23 15:41) ja1 Diagnosis - Acute cystitis with hematuria sb4 - Severe sepsis without septic shock sb4 Discharge Instructions: - Discharge Summary Sheet sb4 Forms: - Medication Reconciliation Form sb4 - SBAR form sb4 - Leadership Thank You Letter sb4 Prescriptions: - cefpodoxime 100 mg Oral Tablet - take 1 tablet ORAL route every 12 hours for 10 days take with food; 20 tablet; sb4 Refills: 0, Product Selection Permitted Signatures: Dispatcher [employer] EDHI Saravanan Dela Cruz RN RN ja1 George Pakrer RN RN bp Eugenia William RN RN ap3 Lito Sena, DO ms3 Mina Robbins, TYRA RN as6 Katrina Mueller, [place] sb4 Corrections: (The following items were deleted from the chart) 08:25 08:24 Constitutional: This is a well developed, well nourished patient who is awake, sb4 alert, and in no acute distress. Head/Face: Normocephalic, atraumatic. Eyes: Extra-ocular motions intact. Periorbital areas with no swelling, redness, or edema. ENT: Mucous membranes moist. Cardiovascular: Regular rate and rhythm with a normal S1 and S2. Respiratory: Lungs have equal breath sounds bilaterally, clear to auscultation and percussion. No rales, rhonchi or wheezes noted. No increased work of breathing, no retractions or nasal flaring. Abdomen/GI: Soft, non-tender, no distension. sb4 10:27 08:17 Urinalysis+U.LAB.BRZ ordered. [facility] 15:41 13:57 Telemetry/MedSurg (Inpatient) sb4 ja1 15:41 13:57 sb4 ja1
--- NOTE | 2023-04-28 13:58 | ER ---
Nurse's Notes [facility] Name: Dominic Jacobo Age: 73 yrs Sex: Male : 1950 Arrival Date: 04/28/2023 Time: 08:00 Bed 17 Private MD: Diagnosis: Acute cystitis with hematuria;Severe sepsis without septic shock Presentation: 04/27 08:10 Chief complaint: Patient states: he has had a catheter "for a while" but for 4-5 days ap3 now he has had blood in it. Coronavirus screen: At this time, the client does not indicate any symptoms associated with coronavirus-19. Ebola Screen: No symptoms or risks identified at this time. Initial Sepsis Screen: Does the patient meet any 2 criteria? No. Patient's initial sepsis screen is negative. Does the patient have a suspected source of infection? No. Patient's initial sepsis screen is negative. Risk Assessment: Do you want to hurt yourself or someone else? Patient reports no desire to harm self or others. Onset of symptoms is unknown. 08:10 Method Of Arrival: EMS: [facility] ap3 08:10 Acuity: NICOL 3 ap3 13:55 Note notified provider of change in patients vital signs. ap3 Triage Assessment: 08:17 General: Appears in no apparent distress. Behavior is calm, cooperative. Pain: Denies ap3 pain. Neuro: Level of Consciousness is awake, alert, Oriented to person, Speech is normal. Cardiovascular: Patient's skin is warm and dry. Respiratory: Airway is patent Respiratory effort is even, unlabored, Respiratory pattern is regular, symmetrical. : Milligan in place Urine is blood tinged. Historical: - Allergies: 08:13 ambien; ap3 08:38 Promethazine; sb4 - PMHx: 08:13 CAD; Chronic obstructive lung disease; Diabetes - NIDDM; High Cholesterol; ap3 Hypertension; UTI (Hypertension); - Immunization history:: Client reports receiving the 2nd dose of the Covid vaccine. - Social history:: Smoking status: unknown. Screenin:17 Abuse screen: Denies threats or abuse. Nutritional screening: No deficits noted. ap3 Tuberculosis screening: No symptoms or risk factors identified. 15:08 [facility] ED Fall Risk Assessment (Adult) Score/Fall Risk Level 0 - 2 = Low Risk. as6 Assessment: 08:15 General: SEE TRIAGE NOTE. bp 10:00 Reassessment: No changes from previously documented assessment. Patient is alert, bp oriented x 3, equal unlabored respirations, skin warm/dry/pink. 12:00 Reassessment: MILLIGAN REPLACED WITHOUT DIFFICULTY. bp 13:05 General: Appears uncomfortable, Behavior is cooperative. Pain: Complains of pain in ap3 pelvis. Neuro: Level of Consciousness is awake, alert, obeys commands, Oriented to person. Cardiovascular: Patient's skin is warm and dry. Respiratory: Airway is patent Respiratory effort is even, unlabored. 14:19 General: Pat (sister) [phone]. as6 15:08 Reassessment: Patient appears in no apparent distress at this time. as6 Vital Signs: 08:10 BP 120 / 67; Pulse 88; Resp 18; Temp 98.2; Pulse Ox 100% ; Weight 87.54 kg; ap3 12:00 BP 106 / 56; Pulse 90; Resp 16; Pulse Ox 99% ; bp 13:52 BP 143 / 92; Pulse 138; Resp 24; Temp 100.4; Pulse Ox 95% ; ap3 15:08 BP 133 / 87; Pulse 116; Resp 15 S; Temp 97.6(TE); Pulse Ox 98% on R/A; as6 15:44 BP 133 / 87; Pulse 98; Resp 16 S; Pulse Ox 95% on R/A; as6 ED Course: 08:06 Patient arrived in ED. iw 08:08 Katrina Mueller PA-C is PHCP. sb4 08:08 Lito Sena DO is Attending Physician. sb4 08:10 Eugenia William, RN is Primary Nurse. ap3 08:12 Triage completed. ap3 08:18 Arm band placed on right wrist. ap3 08:18 Patient has correct armband on for positive identification. Bed in low position. Call ap3 light in reach. Side rails up X2. cardiac monitor technician on. Pulse ox on. NIBP on. 09:04 Initial lab(s) drawn, by me, sent to lab. Inserted saline lock: 22 gauge in right ap3 wrist, using aseptic technique. Blood collected. 09:26 CT Abd/Pelvis - IV Contrast Only In Process Unspecified. EDMS 10:16 Urine collected: Milligan catheter specimen, blood tinged. ap3 11:08 First set of blood cultures drawn by me. ap3 12:06 3-way catheter inserted, using sterile technique, 20 Fr. bc6 12:50 Patient requests pain medication. ap3 13:38 Patient requests pain medication. ap3 13:38 Warm blanket given. ap3 13:57 Dash Mathews MD is Hospitalizing Provider. sb4 14:13 Inserted saline lock: 22 gauge in left forearm, using aseptic technique. Blood ap3 collected. 15:44 No provider procedures requiring assistance completed. Patient admitted, IV remains in as6 place. 16:09 Provided Education on: need for admit. as6 Administered Medications: 12:00 Drug: Rocephin IV 1 grams IV at calculated rate once; Given slow IV push per pharmacy bp instructions Route: IV; Rate: calculated rate; Site: right forearm; 16:15 Follow up: Response: No adverse reaction; IV Status: Completed infusion; IV Intake: [id number] 12:38 Drug: Uromatic Irrigation - NS 0.9% IV 2000 ml 2000 ml IV at calculated rate once bp Volume: 2000 ml; Route: IV; Rate: calculated rate; Site: Other; 16:15 Follow up: Urine output 2000 ml; Response: No adverse reaction; IV Status: Completed as6 infusion; IV Intake: 2000ml 13:04 Drug: fentaNYL (PF) IVP 25 mcg IVP once Route: IVP; Site: right wrist; ap3 13:38 Follow up: Response: No adverse reaction; Pain is decreased; RASS: Alert and Calm (0) ap3 13:56 Drug: fentaNYL (PF) IVP 25 mcg IVP once Route: IVP; Site: right wrist; ap3 14:14 Follow up: Response: No adverse reaction ap3 14:25 Drug: Acetaminophen PO 1000 mg PO once Route: PO; as6 16:15 Follow up: Response: No adverse reaction as6 14:25 Drug: NS 0.9% IV 1000 ml IV at 1 bolus Per protocol; 1000 mL bolus Route: IV; Rate: 1 as6 bolus; Site: left forearm; 16:14 Follow up: Response: No adverse reaction; IV Status: Completed infusion; IV Intake: as6 1000ml Medication: 08:18 VIS not applicable for this client. ap3 Intake: 16:14 IV: 1000ml; Total: 1000ml. as6 16:15 IV: 10ml; Total: 1010ml. as6 16:15 IV: 2000ml; Total: 3010ml. as6 Output: 16:15 Urine: 2000ml; Total: 2000ml. as6 Outcome: 13:57 Decision to Hospitalize by Provider. sb4 16:08 Admitted to ICU accompanied by tech, family with patient, via stretcher, room 2, with as6 chart, 16:08 Condition: stable 16:08 Instructed on the need for admit, 16:16 Patient left the ED. as6 Signatures: Dispatcher [employer] EDMS Mariana Su, RN TYRA iw George Parker RN RN bp Eugenia William RN RN ap3 Mina Robbins RN RN as6 Katrina Mueller PA-C PA-C sb4 Brea Bautista Laure
[2023-04-28] MEDS ORDERED: NA CHLORIDE 0.9% 1,000 ML ONE ×2 (14:21→17:21)
[2023-04-28] MEDS ORDERED: ACETAMINOPHEN 500 MG TAB ONE (14:21)
[2023-04-28] MEDS ORDERED: MORPHINE 2 MG/ML SYR IV PRN (15:23)
[2023-04-28] MEDS ORDERED: ACETAMINOPHEN 500 MG TAB PO PRN (15:23)
[2023-04-28] MEDS ORDERED: ONDANSETRON 4 MG/2 ML VIAL IV PRN (15:23)
[2023-04-28] MEDS ORDERED: MAGNESIUM CITRATE 300 ML BOT ONE (17:21)
[2023-04-28] MEDS: MAGNESIUM CITRATE 300 ML BOT PO ONE (17:29)
[2023-04-28] MEDS: NA CHLORIDE 0.9% 1,000 ML IV SCH (17:29)
[2023-04-28] MEDS: SODIUM CHL 0.9% IRR SOLN 2000 ML IRR SCH (17:56)
[2023-04-28] MEDS ORDERED: MAGNESIUM HYDROXIDE 8% 30 ML ONE (19:59)
[2023-04-28] MEDS: MAGNESIUM HYDROXIDE 8% 30 ML PO SCH (20:30)
[2023-04-29] MEDS ORDERED: NACL 0.9% IRR SOLN 4,000 ML IRR ONE ×2 (00:08→11:01)
[2023-04-29 05:13] LABS: Absolute Basophils 0.1 K/uL (0-0.5); Absolute Lymphocytes (CBC) 3.1 K/uL (0.7-4.9); Basophils % 1.2 % (0-1.3); Hematocrit 30.1 % (39.6-49.0); Lymphocytes % 28.4 % (15.3-44.8); MCV 75.5 fL (80-100); MPV 7.5 fL (7.6-11.3); Platelets 351 thou/uL (152-406); RBC Red Blood Cell Count 3.99 M/uL (4.33-5.43)
[2023-04-29 05:16] LABS: Protime INR 1.19
[2023-04-29 05:24] LABS: Anion Gap 8.2 mEq/L (5.0-15.0); Potassium 4.2 mEq/L (3.5-5.1)
[2023-04-29 05:25] LABS: Albumin 2.7 g/dL (3.4-5.0); Albumin/Globulin Ratio 0.6 (1.1-1.8); Bilirubin Total 0.4 mg/dL (0.2-1.0); Protein, Total 7.1 g/dL (6.4-8.2)
[2023-04-29] MEDS ORDERED: MAGNESIUM HYDROXIDE 8% 30 ML ONE (07:55)
[2023-04-29] MEDS: CEFTRIAXONE 1,000 MG in NA CHLORIDE 0.9% 50 ML IVPB SCH (08:27)
[2023-04-29] MEDS ORDERED: TRAMADOL HCL 50 MG TAB PO PRN (11:04)
[2023-04-29] MEDS ORDERED: ACETAMINOPHEN 325 MG TABLET PO PRN (11:04)
--- NOTE | 2023-04-29 11:51 | P.CNS ---
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 He was lost to follow-up until recently, 03/05/2023, where I saw him in the urology clinic and performed a cystoscopic evaluation of his recurrent gross hematuria and recurrent UTIs. Prior to that, he was last seen 11/2021. 11/21/2020 urodynamics interpretation: Detrusor instability related incontinence associated with Parkinson's disease. 06/05/2021 PTNS given for 9 sessions total with no significant benefit achieved; so it was discontinued. Finasteride was initiated in 2021 He was initially taught CIC but unable to perform it on his own. Progression of his neurologic symptoms making him nonambulatory, ultimately developing a sacral decubitus ulcer at which time a urethral Lagunas catheter was placed. 01/08/2023 traumatic penoscrotal hypospadias noted in hospital evaluation of gross hematuria 02/28/2023 recurrent gross hematuria. Surveillance urine culture revealed Enterobacter sensitive to Bactrim and fluoroquinolones orally. senior care was contacted to start 1 of those oral antimicrobials. 03/05/2023 outpatient cystoscopy completed revealing urethral papilloma, complete detrusor instability but no urothelial lesion, foreign body or stone noted intravesically. Prostatic urethra with lateral lobar hypertrophy. Persistent of the mid shaft penoscrotal hypospadias. Recommendation at the end of that visit: Leave urethral Lagunas catheter while healing of stage IV sacral decubitus ulcer, and once adequately healed, consider either attempts at further management of his urinary incontinence due to detrusor instability versus placement of a suprapubic catheter. He was recently readmitted via the emergency department because of recurrent issues with gross hematuria associated with an indwelling urethral Lagunas catheter. The emergency department initiated him on CBI and consulted me accordingly. 04/28/2023 CT abdomen and pelvis with contrast findings: Bilateral adrenal myelolipomas, largest 17 mm on the left. -I reviewed the images of the CT scan which was done with IV contrast, and no intrarenal calculi were noted. There was no hydronephrosis. There were small renal cysts noted, but no concerning masses or signs of abscess. 04/28/2023 hemoglobin 11.3, WBC 12.0, platelets 361, INR 1.18, creatinine 0.73 04/29/2023 hemoglobin 9.9 Bladder irrigation procedure note: I irrigated his urethral Lagunas catheter with 750 cc of normal saline and removed a moderate degree of formed clot. There was no significant ongoing active bleeding at this time, and at the conclusion of the irrigation, his urine was crystal clear. CBI was already presumptively held as the bags were empty. As a result, I connected his catheter bag to gravity drainage. 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 -Given the hypospadias, it would be imperative to remove the catheter at some point. This can be done either in the form of placement of a suprapubic tube, or efforts beyond PTNS can be made to try to control his detrusor instability, potentially with intradetrusor Botox versus definitive neuromodulation via [employer]. If the healing of his sacral decubitus ulcer remains slow/poor, we may have no choice but to proceed with operative suprapubic catheter placement to minimize his recurrent UTIs and gross hematuria. -Meanwhile, recommend discharge with prophylactic antimicrobial, nitrofurantoin/Macrobid 100 mg p.o. daily, to prevent recurrent infection until next steps in management can be decided. -Follow-up was originally scheduled for May, and we we will assess his decubitus ulcer healing at that time and make a decision about the next steps in management of his incontinence and penoscrotal hypospadias. -Meanwhile, recommend completion of a treatment course of antimicrobials for 10 days, which can be done using Levaquin or Bactrim before starting on prophylactic antimicrobials with Macrobid as discussed above. Allergies promethazine Allergy (Verified 04/28/23 16:16) Hives/Rash zolpidem [From Ambien] Adverse Reaction (Verified 05/27/18 21:13) hallucinates Home medications list reviewed: Yes Home Medications: Acetaminophen [8 Hour Acetaminophen] 650 mg PO Q6H PRN 04/28/23 Ascorbic Acid [Vitamin C] 500 mg PO DAILY 04/28/23 Aspirin 891 mg PO DAILY 04/28/23 Atorvastatin Calcium 40 mg PO BEDTIME 04/28/23 Calcium Carbonate [Calcium] 750 mg PO DAILY 04/28/23 Carbidopa/Levodopa [Carbidopa-Levo 25-100 mg Odt] 1 tab PO TID 04/28/23 Clopidogrel Bisulfate [Plavix] 75 mg PO DAILY 04/28/23 Docusate [Colace Cap*] 100 mg PO DAILY 04/28/23 Escitalopram Oxalate [Lexapro] 10 mg PO DAILY 04/28/23 Ezetimibe [Zetia*] 10 mg PO DAILY 04/28/23 Finasteride [Proscar*] 5 mg PO BEDTIME 04/28/23 Gabapentin 300 mg PO DAILY 04/28/23 Hyoscyamine Sulfate [Levsin-Sl] 2 tab PO Q6H PRN 04/28/23 Insulin Degludec [Tresiba] 50 unit SQ BEDTIME 04/28/23 Irbesartan [Avapro] 150 mg PO DAILY 04/28/23 Memantine HCl [Namenda] 5 mg PO BID 04/28/23 Metoprolol Tartrate 25 mg PO BID 04/28/23 Mirtazapine 15 mg PO DAILY 04/28/23 Multivitamin [Multiple Vitamins] 1 tab PO DAILY 04/28/23 Repaglinide 1 mg PO DAILY 04/28/23 Ropinirole HCl 2 mg PO DAILY 04/28/23 Tamsulosin HCl [Flomax] 0.8 mg PO BEDTIME 04/28/23 Tramadol HCl [Ultram] 50 mg PO Q8H PRN 04/28/23 Vibegron [Gemtesa] 75 mg PO DAILY 04/28/23 Vit C/E/Zn/Coppr/Lutein/Zeaxan [Preservision Areds 2 Softgel] 1 tab PO DAILY 04/28/23 Zinc Amino Acid Chelate [Zinc] 50 mg PO DAILY 04/28/23 - Past Medical/Surgical History Diabetic: Yes -: Diabetes mellitus type 2insulin-dependent -: Hypertension -: Coronary artery disease -: Hyperlipidemia -: Parkinson's -: CABG -: bilateral knee sx -: cholecystectomy Psychosocial/ Personal History: Patient lives at [facility]. - Social History Smoking Status: Unknown if ever smoked Alcohol use: No CD- Drugs: No Caffeine use: Yes Physical Examination Temp Pulse Resp BP Pulse Ox 98.1 F 71 18 127/82 100 04/29/23 08:00 04/29/23 08:00 04/29/23 08:00 04/29/23 08:00 04/29/23 08:00 - Problems (1) Detrusor instability Current Visit: Yes Status: Acute (2) Urge incontinence Current Visit: Yes Status: Acute (3) CVA (cerebral vascular accident) Current Visit: Yes Status: Acute (4) Parkinsons disease Current Visit: Yes Status: Acute (5) Cystitis Current Visit: No Status: Acute (6) Hypospadias, penoscrotal Current Visit: No Status: Acute (7) Gross hematuria Current Visit: No Status: Resolved Critical Care: No Time Spent Managing Pts care (In Minutes): 45
[2023-04-29] MEDS: CARBIDOPA/LEVODOPA 25/100 TAB PO SCH (12:55)
--- NOTE | 2023-04-29 13:24 | P.HP ---
Certification for Inpatient Patient admitted to: Inpatient With expected LOS: >2 Midnights Patient will require the following post-hospital care: None Practitioner: I am a practitioner with admitting privileges, knowledge of patient current condition, hospital course, and medical plan of care. Services: Services provided to patient in accordance with Admission requirements found in Title 42 Section 412.3 of the Code of Federal Regulations Patient History Date of Service: 04/28/23 Reason for admission: Blood in the urine History of Present Illness: Patient is a 73-year-old gentleman came to the hospital with gross hematuria. Patient's hematuria resolved in the emergency room however, patient spiked a fever. Patient had urine cultures obtained and patient was admitted to the hospital for further evaluation. When patient was being admitted patient started having gross hematuria once again. Patient was seen by Dr. Mcgrath as an outpatient. Will consult urology once again. Patient will be admitted to the hospital for further evaluation. Allergies promethazine Allergy (Verified 04/28/23 16:16) Hives/Rash zolpidem [From Ambien] Adverse Reaction (Verified 05/27/18 21:13) hallucinates Home Medications: Acetaminophen [8 Hour Acetaminophen] 650 mg PO Q6H PRN 04/28/23 Ascorbic Acid [Vitamin C] 500 mg PO DAILY 04/28/23 Aspirin 891 mg PO DAILY 04/28/23 Atorvastatin Calcium 40 mg PO BEDTIME 04/28/23 Calcium Carbonate [Calcium] 750 mg PO DAILY 04/28/23 Carbidopa/Levodopa [Carbidopa-Levo 25-100 mg Odt] 1 tab PO TID 04/28/23 Clopidogrel Bisulfate [Plavix] 75 mg PO DAILY 04/28/23 Docusate [Colace Cap*] 100 mg PO DAILY 04/28/23 Escitalopram Oxalate [Lexapro] 10 mg PO DAILY 04/28/23 Ezetimibe [Zetia*] 10 mg PO DAILY 04/28/23 Finasteride [Proscar*] 5 mg PO BEDTIME 04/28/23 Gabapentin 300 mg PO DAILY 04/28/23 Hyoscyamine Sulfate [Levsin-Sl] 2 tab PO Q6H PRN 04/28/23 Insulin Degludec [Tresiba] 50 unit SQ BEDTIME 04/28/23 Irbesartan [Avapro] 150 mg PO DAILY 04/28/23 Memantine HCl [Namenda] 5 mg PO BID 04/28/23 Metoprolol Tartrate 25 mg PO BID 04/28/23 Mirtazapine 15 mg PO DAILY 04/28/23 Multivitamin [Multiple Vitamins] 1 tab PO DAILY 04/28/23 Repaglinide 1 mg PO DAILY 04/28/23 Ropinirole HCl 2 mg PO DAILY 04/28/23 Tamsulosin HCl [Flomax] 0.8 mg PO BEDTIME 04/28/23 Tramadol HCl [Ultram] 50 mg PO Q8H PRN 04/28/23 Vibegron [Gemtesa] 75 mg PO DAILY 04/28/23 Vit C/E/Zn/Coppr/Lutein/Zeaxan [Preservision Areds 2 Softgel] 1 tab PO DAILY 04/28/23 Zinc Amino Acid Chelate [Zinc] 50 mg PO DAILY 04/28/23 - Past Medical/Surgical History Diabetic: Yes -: Diabetes mellitus type 2insulin-dependent -: Hypertension -: Coronary artery disease -: Hyperlipidemia -: Parkinson's -: CABG -: bilateral knee sx -: cholecystectomy Psychosocial/ Personal History: Patient lives at [facility]. - Family History Father Family History: Reviewed- Non-Contributory - Social History Smoking Status: Former smoker Alcohol use: No CD- Drugs: No Caffeine use: Yes Review of Systems 10-point ROS is otherwise unremarkable Physical Examination - Vital Signs Temperature: 97.3 F Blood Pressure: 115/85 Pulse: 69 Respirations: 16 Pulse Ox (%): 99 - Physical Exam General: Alert, In no apparent distress, Oriented x3 HEENT: Atraumatic, PERRLA, Mucous membr. moist/pink, EOMI, Sclerae nonicteric Neck: Supple, 2+ carotid pulse no bruit, No LAD, Without JVD or thyroid abnormality Respiratory: Clear to auscultation bilaterally, Normal air movement Cardiovascular: Regular rate/rhythm, Normal S1 S2 Gastrointestinal: Normal bowel sounds, Soft and benign, Non-distended, No tenderness Musculoskeletal: No clubbing, No swelling, No tenderness Integumentary: No rashes Neurological: Normal gait, Normal speech, Normal strength at 5/5 x4 extr, Normal tone, Sensation intact, Cranial nerves 3-12 intact, Normal affect Lymphatics: No axilla or inguinal lymphadenopathy Assessment & Plan - Problems (Diagnosis) (1) Gross hematuria Current Visit: No Status: Resolved (2) Alzheimer's dementia Current Visit: Yes Status: Acute (3) CVA (cerebral vascular accident) Current Visit: Yes Status: Acute (4) Parkinsons disease Current Visit: Yes Status: Acute (5) Cystitis Current Visit: No Status: Acute (6) Depression Current Visit: No Status: Acute (7) CAD (coronary artery disease) Current Visit: No Status: Chronic Qualifiers: Coronary Disease-Associated Artery/Lesion type: bypass graft [place] vs. 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 Monitor H&H 2. Urology consultation 3. IV antibiotics 4. Resume dopamine agonist 5. Resume Alzheimer's medications 6. Continuous bladder irrigation 7. Strict blood pressure and blood sugar control 8. IV hydration 9. GI and DVT prophylax - Advance Directives Does patient have a Living Will: No Does patient have a Durable POA for Healthcare: No
[2023-04-29] MEDS: ATORVASTATIN 40 MG TAB PO SCH (21:00)
[2023-04-29] MEDS: MEMANTINE HCL 10 MG TABLET PO SCH (21:00)
[2023-04-29] MEDS: FINASTERIDE 5 MG TAB PO SCH (21:00)
[2023-04-29] MEDS: METOPROLOL TAR 25 MG TAB PO SCH (21:00)
[2023-04-29] MEDS: HOME MED 1 EA UNK (Insulin Degludec [Tresiba] 100 UNIT/ML Vial) SQ SCH (21:00)
[2023-04-29] MEDS: TAMSULOSIN 0.4 MG SR CAP PO SCH (21:10)
[2023-04-30 05:31] LABS: Absolute Basophils 0.1 K/uL (0-0.5); Absolute Lymphocytes (CBC) 2.4 K/uL (0.7-4.9); Hematocrit 28.9 % (39.6-49.0); Lymphocytes % 27.6 % (15.3-44.8); MCV 76.4 fL (80-100); MPV 7.2 fL (7.6-11.3); Platelets 306 thou/uL (152-406); RBC Red Blood Cell Count 3.78 M/uL (4.33-5.43)
[2023-04-30 05:38] LABS: Anion Gap 7.3 mEq/L (5.0-15.0); Magnesium 2.4 mg/dL (1.6-2.4); Potassium 4.3 mEq/L (3.5-5.1)
[2023-04-30] MEDS: REPAGLINIDE PO SCH (07:30)
[2023-04-30] MEDS ORDERED: VALSARTAN 80 MG TAB ONE (08:10)
[2023-04-30] MEDS ORDERED: GABAPENTIN 300 MG CAP ONE (08:10)
[2023-04-30] MEDS ORDERED: ZINC SULFATE 220 MG CAP ONE (08:11)
[2023-04-30] MEDS ORDERED: Multi-VIT(Centravite Senior) 1 TAB TAB ONE (08:11)
[2023-04-30] MEDS ORDERED: CLOPIDOGREL 75 MG TABLET ONE (08:11)
[2023-04-30] MEDS ORDERED: ASCORBIC ACID 500 MG TABLET ONE (08:11)
[2023-04-30] MEDS ORDERED: DOCUSATE NA 100 MG CAP PO ONE (08:12)
[2023-04-30] MEDS: ROPINIROLE HCL 1 MG TAB PO SCH (08:14)
[2023-04-30] MEDS: ESCITALOPRAM 20 MG TAB PO SCH (08:14)
[2023-04-30] MEDS: OCUVITE (VIT A,C & E/LUTEIN/MINERAL) TABLET PO SCH (08:18)
[2023-04-30] MEDS: MIRTAZAPINE 15 MG TAB PO SCH (08:18)
[2023-04-30] MEDS: GABAPENTIN 300 MG CAP PO SCH (08:18)
[2023-04-30] MEDS: DOCUSATE NA 100 MG CAP PO SCH (08:18)
[2023-04-30] MEDS: ASCORBIC ACID 500 MG TABLET PO SCH (08:18)
[2023-04-30] MEDS: CLOPIDOGREL 75 MG TABLET PO SCH (08:18)
[2023-04-30] MEDS: Multi-VIT(Centravite Senior) 1 TAB TAB PO SCH (08:18)
[2023-04-30] MEDS: EZETIMIBE 10 MG TAB PO SCH (08:19)
[2023-04-30] MEDS: CALCIUM CARBONATE 500 MG TAB PO SCH (08:19)
[2023-04-30] MEDS: VALSARTAN 80 MG TAB PO SCH (08:20)
[2023-04-30] MEDS: HOME MED 1 EA UNK (Vibegron [Gemtesa] 75 MG Tablet) PO SCH (08:20)
[2023-04-30] MEDS: ZINC SULFATE 220 MG CAP PO SCH (08:34)
[2023-04-30] MEDS ORDERED: IRBESARTAN 75 MG PO SCH (09:00)
[2023-04-30] MEDS ORDERED: NA CHLORIDE 0.9% 1,000 ML ONE (19:31)
[2023-04-30] MEDS ORDERED: TAMSULOSIN 0.4 MG SR CAP ONE (20:14)
[2023-04-30 21:03] VITALS: O2SAT 97
[2023-05-01] MEDS ORDERED: NA CHLORIDE 0.9% 1,000 ML ONE (02:54)
[2023-05-01 05:15] VITALS: BMI 26.8
--- NOTE | 2023-05-01 09:12 | P.PN ---
Subjective Date of Service: 05/01/23 Chief Complaint: Blood in the urine alert, oriented peron, place, On RA, telemetry HR 40-60's - Physical Exam General: Alert, In no apparent distress, Oriented x3 HEENT: Atraumatic, PERRLA, Mucous membr. moist/pink, EOMI, Sclerae nonicteric Neck: Supple, 2+ carotid pulse no bruit, No LAD, Without JVD or thyroid abnormality Respiratory: Clear to auscultation bilaterally, Normal air movement Cardiovascular: Regular rate/rhythm, Normal S1 S2 Gastrointestinal: Normal bowel sounds, Soft and benign, Non-distended, No te nderness Musculoskeletal: No clubbing, No swelling, No tenderness Integumentary: No rashes Neurological: Normal gait, Normal speech, Normal strength at 5/5 x4 extr, Normal tone, Sensation intact, Cranial nerves 3-12 intact, Normal affect Lymphatics: No axilla or inguinal lymphadenopathyOn RA, A+OX2, HR 40-60's Physical Examination - Vital Signs Temperature: 97 F Blood Pressure: 121/53 Pulse: 54 Respirations: 14 Pulse Ox (%): 98 Assessment And Plan - Plan Assessment & Plan Gross hematuria Current Visit: No Status: Resolved + Urology consulted Dr baum 02/28/2023 recurrent gross hematuria. Surveillance urine culture revealed Enterobacter sensitive to Bactrim and fluoroquinolones orally. [facility] was contacted to start 1 of those oral antimicrobials. 03/05/2023 outpatient cystoscopy completed revealing urethral papilloma, complete detrusor instability but no urothelial lesion, foreign body or stone noted intravesically. Prostatic urethra with lateral lobar hypertrophy. Persistent of the mid shaft penoscrotal hypospadias. Recommendation at the end of that visit: Leave urethral Lagunas catheter while healing of stage IV sacral decubitus ulcer, and once adequately healed, consider either attempts at further management of his urinary incontinence due to detrusor instability versus placement of a suprapubic catheter. He was recently readmitted via the emergency department because of recurrent issues with gross hematuria associated with an indwelling urethral Lagunas catheter. The emergency department initiated him on CBI and consulted me accordingly. 04/28/2023 CT abdomen and pelvis with contrast findings: Bilateral adrenal myelolipomas, largest 17 mm on the left. -I reviewed the images of the CT scan which was done with IV contrast, and no intrarenal calculi were noted. There was no hydronephrosis. There were small renal cysts noted, but no concerning masses or signs of abscess. 04/28/2023 hemoglobin 11.3, WBC 12.0, platelets 361, INR 1.18, creatinine 0.73 04/29/2023 hemoglobin 9.9 Bladder irrigation procedure note: I irrigated his urethral Lagunas catheter with 750 cc of normal saline and removed a moderate degree of formed clot. There was no significant ongoing active bleeding at this time, and at the conclusion of the irrigation, his urine was crystal clear. CBI was already presumptively held as the bags were empty. As a result, I connected his catheter bag to gravity drainage. Pressure Ulcer Alzheimer's dementia Current Visit: Yes Status: Acute CVA (cerebral vascular accident) Current Visit: Yes Status: Acute Parkinsons disease Current Visit: Yes Status: Acute Cystitis Current Visit: No Status: Acute Depression Current Visit: No Status: Acute CAD (coronary artery disease) Current Visit: No Status: Chronic Qualifiers: Coronary Disease-Associated Artery/Lesion type: bypass graft [place] vs. transplanted heart: [place] heart Associated angina: without angina Qualified Code(s): I25.810 - Atherosclerosis of coronary artery bypass graft(s) without angina pectoris Diabetes mellitus Current Visit: No Status: Chronic Qualifiers: Diabetes mellitus type: type 2 Diabetes mellitus long-term insulin use: without long-term use Diabetes mellitus complication status: with hyperglycemia Qualified Code(s): E11.65 - Type 2 diabetes mellitus with hyperglycemia HTN (hypertension) Current Visit: No Status: Chronic Qualifiers: Hypertension type: primary hypertension Qualified Code(s): I10 - Essential (primary) hypertension - Plan PLAN: 1. Monitor H&H 2. Urology consultation 3. IV antibiotics 4. Resume dopamine agonist 5. Resume Alzheimer's medications 6. Continuous bladder irrigation 7. Strict blood pressure and blood sugar control 8. IV hydration 9. GI and DVT prophylax Dispostion resident at [facility] and has been there since 2022 Critical Care: Yes Time Spent Managing PTS Care (In Minutes): 55
[2023-05-01] MEDS: HYOSCYAMINE SULF 0.125 MG TAB PO PRN (09:37)
[2023-05-01] MEDS: MEDIHONEY 44 ML TOPICAL TUBE TOP SCH (09:38)
[2023-05-01] MEDS ORDERED: VALSARTAN 80 MG TAB ONE (09:45)
[2023-05-01] MEDS ORDERED: GABAPENTIN 300 MG CAP ONE (09:45)
[2023-05-01] MEDS ORDERED: MULTIVITAMIN TAB PO ONE (09:46)
[2023-05-01] MEDS ORDERED: CLOPIDOGREL 75 MG TABLET ONE (09:46)
[2023-05-01] MEDS ORDERED: ASCORBIC ACID 500 MG TABLET ONE (09:46)
[2023-05-01] MEDS ORDERED: DOCUSATE NA 100 MG CAP PO ONE (09:46)
[2023-05-01] MEDS ORDERED: ZINC SULFATE 220 MG CAP ONE (09:46)
[2023-05-01] MEDS ORDERED: Multi-VIT(Centravite Senior) 1 TAB TAB ONE (09:59)
[2023-05-01] MEDS ORDERED: AMOX/K CLAV 875 MG TAB ONE (12:28)
[2023-05-01] MEDS: AMOX/K CLAV 875 MG TAB PO SCH (12:29)
[2023-05-01 15:06] VITALS: BP 113/62; TEMP 97.3
--- NOTE | 2023-05-01 15:09 | P.DS ---
Admission Date: 04/29/23 Discharge Date: 05/01/23 Disposition: TRANSFER TO [facility] Discharge Condition: GOOD Reason for Admission: Blood in the urine Brief History of Present Illness: 73-year-old gentleman came to the hospital with gross hematuria. Patient's hematuria resolved in the emergency room however, patient spiked a fever. Patient had urine cultures obtained and patient was admitted to the hospital for further evaluation. When patient was being admitted patient started having gross hematuria once again. Patient was seen by Dr. Mcgrath as an outpatient. Will consult urology once again. Patient will be admitted to the hospital for further evaluation. - Physical Exam General: Alert, In no apparent distress, Oriented x3 HEENT: Atraumatic, PERRLA, Mucous membr. moist/pink, EOMI, Sclerae nonicteric Neck: Supple, 2+ carotid pulse no bruit, No LAD, Without JVD or thyroid abnormality Respiratory: Clear to auscultation bilaterally, Normal air movement Cardiovascular: Regular rate/rhythm, Normal S1 S2 Gastrointestinal: Normal bowel sounds, Soft and benign, Non-distended, No tenderness Musculoskeletal: No clubbing, No swelling, No tenderness Integumentary: No rashes Neurological: Normal gait, Normal speech, Normal strength at 5/5 x4 extr, Normal tone, Sensation intact, Cranial nerves 3-12 intact, Normal affect Lymphatics: No axilla or inguinal lymphadenopathy Hospital Course: 73 year-old male patient with Alzheimer's dementia, history of CVA, history of Parkinson's, acute cystitis, CAD, diabetes, hypertension presented to the emergency room with hematuria. Dr. Mcgrath was consulted for urology. 04/28/2023 CT abdomen and pelvis with contrast findings: Bilateral adrenal myelolipomas, largest 17 mm on the left, no intrarenal calculi were noted. There was no hydronephrosis. There were small renal cysts noted, but no concerning masses or signs of abscess. Had anemia, hemoglobin 11.3 with mild leukocytosis, [place] was irrigated with normal saline. Was noted to have hematuria. Condition improved with bladder irrigations, urology consult. Patient tolerating diet, [facility] with [facility] PROBLEM: Hematuria severe LUTS with urgency and urge incontinence associated with nocturnal enuresis as well as recurrent complicated UTIs urethral [place] catheter in place because of sacral decubitus ulcer stage IV requiring healing, but with penoscrotal hypospadias. Decubitus ulcer Dr. Mcgrath Per urology, if the healing of his sacral decubitus ulcer remains slow/poor, we may have no choice but to proceed with operative suprapubic catheter placement to minimize his recurrent UTIs and gross hematuria. recommend discharge with prophylactic antimicrobial, nitrofurantoin/Macrobid 100 mg p.o. daily, Continue home medicines as previously prescribed GOAL: Clear understanding of disease process INSTRUCTIONS: Physician Discharge Instructions: -Follow-up with PCP in 1 to 2 weeks -Please call Dr. Mathews at [phone] if any questions regarding hospital stay -Please call nursing station at [phone] if any nursing or medication questions -Return to the emergency room if symptoms worsen Diet: ADA, low sodium Activity: Fall precautions Vital Signs/Physical Exam: Temp Pulse Resp BP Pulse Ox 97.3 F 53 17 113/62 100 05/01/23 12:00 05/01/23 12:00 05/01/23 12:00 05/01/23 12:00 05/01/23 12:00 Laboratory Data at Discharge: WBC 8.80 thou/uL (4.3-10.9) 04/30/23 05:09 Hgb 9.4 g/dL (13.6-17.9) L 04/30/23 05:09 Hct 28.9 % (39.6-49.0) L 04/30/23 05:09 Plt Count 306 thou/uL (152-406) 04/30/23 05:09 PT 13.0 SECONDS (9.5-12.5) H 04/29/23 04:29 INR 1.19 04/29/23 04:29 APTT 34.7 SECONDS (24.3-36.9) 04/29/23 04:29 Sodium 139 mEq/L (136-145) 04/30/23 05:09 Potassium 4.3 mEq/L (3.5-5.1) 04/30/23 05:09 BUN 7 mg/dL (7-18) 04/30/23 05:09 Creatinine 0.58 mg/dL (0.70-1.30) L 04/30/23 05:09 Glucose 130 mg/dL (74-106) H 03/06/24 05:09 Magnesium 2.4 mg/dL (1.6-2.4) 04/30/23 05:09 Total Bilirubin 0.4 mg/dL (0.2-1.0) 04/29/23 04:29 AST 14 U/L (15-37) L 04/29/23 04:29 ALT 29 U/L (16-61) 04/29/23 04:29 Alkaline Phosphatase 98 U/L (45-117) 04/29/23 04:29 Home Medications: Acetaminophen [8 Hour Acetaminophen] 650 mg PO Q6H PRN 04/28/23 Ascorbic Acid [Vitamin C] 500 mg PO DAILY 04/28/23 Aspirin 891 mg PO DAILY 04/28/23 Atorvastatin Calcium 40 mg PO BEDTIME 04/28/23 Calcium Carbonate [Calcium] 750 mg PO DAILY 04/28/23 Carbidopa/Levodopa [Carbidopa-Levo 25-100 mg Odt] 1 tab PO TID 04/28/23 Clopidogrel Bisulfate [Plavix] 75 mg PO DAILY 04/28/23 Docusate [Colace Cap*] 100 mg PO DAILY 04/28/23 Escitalopram Oxalate [Lexapro] 10 mg PO DAILY 04/28/23 Ezetimibe [Zetia*] 10 mg PO DAILY 04/28/23 Finasteride [Proscar*] 5 mg PO BEDTIME 04/28/23 Gabapentin 300 mg PO DAILY 04/28/23 Hyoscyamine Sulfate [Levsin-Sl] 2 tab PO Q6H PRN 04/28/23 Insulin Degludec [Tresiba] 50 unit SQ BEDTIME 04/28/23 Irbesartan [Avapro] 150 mg PO DAILY 04/28/23 Memantine HCl [Namenda] 5 mg PO BID 04/28/23 Metoprolol Tartrate 25 mg PO BID 04/28/23 Mirtazapine 15 mg PO DAILY 04/28/23 Multivitamin [Multiple Vitamins] 1 tab PO DAILY 04/28/23 Repaglinide 1 mg PO DAILY 04/28/23 Ropinirole HCl 2 mg PO DAILY 04/28/23 Tamsulosin HCl [Flomax] 0.8 mg PO BEDTIME 04/28/23 Tramadol HCl [Ultram] 50 mg PO Q8H PRN 04/28/23 Vibegron [Gemtesa] 75 mg PO DAILY 04/28/23 Vit C/E/Zn/Coppr/Lutein/Zeaxan [Preservision Areds 2 Softgel] 1 tab PO DAILY 04/28/23 Zinc Amino Acid Chelate [Zinc] 50 mg PO DAILY 04/28/23 Amox/Clavulanate [Augmentin 875-125 Tab*] 875 mg PO BID #20 tab 05/01/23 Nitrofurantoin Macrocrystal [Nitrofurantoin] 50 mg PO BID #30 05/01/23 New Medications: Amox/Clavulanate [Augmentin 875-125 Tab*] 875 mg PO BID #20 tab Nitrofurantoin Macrocrystal [Nitrofurantoin] 50 mg PO BID #30 Physician Discharge Instructions: -DC IV and DC home -Follow-up with PCP in 1 to 2 weeks -Follow-up with Urology in 1 to 2 weeks -Please call Dr. Mathews at [phone] if any questions regarding hospital stay -Please call nursing station at [phone] if any nursing or medication questions -Return to the emergency room if symptoms worsen -do not start nitrofurantoin for 10 more days-on 05/12/23 Diet: AHA Activity: Fall precautions Followup: NONE,NONE [Primary Care Provider] - Time spent managing pt's care (in minutes): 55
== END 2023-05-01 14:30 | DRG 698 ==
LOC: ER 08:00 → ERHOLD 15:23 → 3RD-ICU 15:43 → OBSVTOIN 04-29 13:36
PROVIDERS: ADMIT Hospitalist; ATTEND Hospitalist
PROC: 3C1ZX8Z Irrigation of Indwelling Device using Irrigating Substance, External Approach (ICD-10-PCS; principal; 2023-04-29)
DX: T83.83XA Hemorrhage due to genitourinary prosthetic devices, implants and grafts, initial encounter (principal); L89.154 Pressure ulcer of sacral region, stage 4; I25.810 Atherosclerosis of coronary artery bypass graft(s) without angina pectoris; N30.01 Acute cystitis with hematuria; F02.83 Dementia in other diseases classified elsewhere, unspecified severity, with mood disturbance; G30.9 Alzheimer's disease, unspecified; E11.65 Type 2 diabetes mellitus with hyperglycemia; I10 Essential (primary) hypertension; N28.1 Cyst of kidney, acquired; Q54.2 Hypospadias, penoscrotal; N40.1 Benign prostatic hyperplasia with lower urinary tract symptoms; N39.41 Urge incontinence; E78.00 Pure hypercholesterolemia, unspecified; G20.A1 Parkinson's disease without dyskinesia, without mention of fluctuations; J44.9 Chronic obstructive pulmonary disease, unspecified; I25.10 Atherosclerotic heart disease of native coronary artery without angina pectoris; Z88.8 Allergy status to other drugs, medicaments and biological substances; Z79.4 Long term (current) use of insulin; Z95.5 Presence of coronary angioplasty implant and graft; Z90.49 Acquired absence of other specified parts of digestive tract; Z79.02 Long term (current) use of antithrombotics/antiplatelets; Z79.82 Long term (current) use of aspirin; Z87.891 Personal history of nicotine dependence; Z79.899 Other long term (current) drug therapy; Y83.8 Other surgical procedures as the cause of abnormal reaction of the patient, or of later complication, without mention of misadventure at the time of the procedure
CPT/HCPCS: 36415; 74177; 80048; 80053; 81015; 82947; 83605; 83735; 85025; 85610; 85730; 87040; 87077; 87086; 87088; 87186; 99285; G0378; J0696; J3010; J7030; Q9967

== ENCOUNTER 2023-11-24 06:07 | Emergency (ER) | payer OTHER ==
[2023-11-24] MEDS ORDERED: VANCOMYCIN 1 GM/VIAL ONE (06:24)
[2023-11-24] MEDS ORDERED: NA CHLORIDE 0.9% 1,000 ML ONE ×2 (06:24→06:38)
[2023-11-24] MEDS ORDERED: Meropenem 1000 MG/VIAL IV ONE (06:24)
[2023-11-24] MEDS ORDERED: NA CHLORIDE 0.9% 250 ML ONE (06:24)
[2023-11-24] MEDS ORDERED: NA CHLORIDE 0.9% 100 ML ONE (06:24)
--- NOTE | 2023-11-24 06:31 | RAD REPORT ---
EXAM DESCRIPTION: Chest Single View CLINICAL HISTORY: DYSPNEA COMPARISON: None. FINDINGS: 1 view(s) of the chest. Cardiomediastinal silhouette: Atherosclerotic calcification of thoracic aorta. Heart is not enlarged. Prior median sternotomy. Lungs: Pulmonary vascular congestion. Left midlung calcified granuloma. No pneumothorax or large effu aki. Low lung volumes. Bones: No acute osseous abnormality. Degenerative change of the spine and shoulders. Upper abdomen: No abnormality identified. IMPRESSION: Pulmonary vascular congestion. Electronically signed by: Danny Frye DO 11/24/2023 06:26 AM CDT RP [id number] Due to temporary technical issues with the PACS/ZappRx reporting system, reports are being nicolasa d by the in-house radiologist without review as a courtesy to ensure prompt reporting the interpreting radiologist is fully responsible for the content of the report. Transcribed Date/Time: 11/24/2023 6:30 AM
[2023-11-24] MEDS ORDERED: NOREPINEPHRINE BITARTRATE/D5W 4 MG/250 ML KIT IV ONE (06:38)
[2023-11-24 06:45] LABS: Absolute Lymphocytes (CBC) 1.2 K/uL (0.7-4.9); Absolute Monocytes 3.1 K/uL (0.1-1.3); Absolute Neutrophil 26.4 K/uL (1.8-8.0); Basophils % 0.2 % (0-1.3); Hematocrit 41.3 % (39.6-49.0); Hemoglobin 13.5 g/dL (13.6-17.9); Lymphocytes % 3.8 % (15.3-44.8); MCH 27.2 pg (27.0-35.0); MCHC 32.8 g/dL (32.0-36.0); MCV 82.8 fL (80-100); MPV 8.2 fL (7.6-11.3); Monocytes % 10.2 % (3.3-12.3); Neutrophils % 85.8 % (41.7-73.7); Platelets 303 thou/uL (152-406); RBC Red Blood Cell Count 4.99 M/uL (4.33-5.43); Red Cell Distribution Width 17.3 % (12.1-15.2)
[2023-11-24 06:48] LABS: PT Prothrombin Time 13.7 SECONDS (9.4-12.5); PTT, Activated Partial Thromb 34.7 SECONDS (24.3-36.9); Protime INR 1.23
[2023-11-24] MEDS ORDERED: propofoL 1,000 MG/100 ML VIAL IV ONE (06:56)
[2023-11-24] MEDS ORDERED: KETAMINE HCL IN 0.9 % NACL 50 MG/5 ML SYRINGE IV ONE (06:56)
[2023-11-24] MEDS ORDERED: ROCURONIUM 50 MG/5 ML VIAL IV ONE (06:57)
[2023-11-24] MEDS ORDERED: EPINEPHrine 1 MG/10 ML SYR ONE (06:59)
[2023-11-24 07:02] LABS: Albumin 2.7 g/dL (3.4-5.0); Albumin/Globulin Ratio 0.6 (1.1-1.8); Anion Gap 12.1 mEq/L (5.0-15.0); Globulin 4.4 g/dL (2.3-3.5); Potassium 4.1 mEq/L (3.5-5.1); Protein, Total 7.1 g/dL (6.4-8.2)
[2023-11-24 07:06] LABS: Troponin High Sensitivity 1534.6 pg/mL (<58.9)
[2023-11-24 07:33] LABS: Arterial Blood Carboxyhemoglob 1.2 % (0-1.5); Blood Gas Oxyhemoglobin 95.9 % (94-97); Blood Gas THB 14.4 g/dl (12-18); Blood O2 Saturation 98.7 % (92-98.5)
[2023-11-24] MEDS ORDERED: NA CHLORIDE 0.9% 500 ML ONE (08:02)
--- NOTE | 2023-11-24 08:23 | RAD REPORT ---
EXAMINATION: ONE VIEW CHEST XR CLINICAL INDICATION: Male, 73 years old.,CENTRAL LINE TECHNIQUE: Frontal chest projection is submitted. Examination is limited by patient positioning and t echnique. COMPARISON: 11/24/2023 chest radiograph at 6:12 AM FINDINGS: A left IJ CVC has been placed with catheter tip at the level of the distal SVC. Decreased inspiratory effort again limits evaluation. Mild central interstitial prominence, stable. The lungs are well inflated and otherwise clear. No pneumothorax or sizable effusion. Sequelae of median sternotomy. Th e heart is normal in size. IMPRESSION: Satisfactory left IJ CVC positioning. Stable mild central interstitial prominence.
--- NOTE | 2023-11-24 08:24 | RAD REPORT ---
EXAMINATION: ONE VIEW CHEST XR CLINICAL INDICATION: Male, 73 years old.,intubation TECHNIQUE: Frontal chest projection is submitted. Examination is limited by patient positioning and t echnique. COMPARISON: Same date chest radiographs at 0652 and 0612 hours FINDINGS: Left IJ CVC and endotracheal tube in satisfactory position, with endotracheal tube tip approximately 4.6 cm above the nini. Mild central interstitial prominence, stable. The lungs are well inflated and otherwise clear. No pneumothorax or sizable effusion. The heart is normal in size. IMPRESSION: Satisfactory positioning of the endotracheal tube. Stable findings.
[2023-11-24 09:08] LABS: Band Neutrophils 12 % (0-1); Blood Morphology Comment NOT SEEN (NOT SEEN); Differential Total Cells Count 100; Lymphocytes 4 % (15-42); Monocytes 11 % (0-10); Platelet Estimate ADEQ; Segmented Neutrophils 73 % (40-80); Toxic Granulation 1+
[2023-11-24 09:11] LABS: Sqamous Epithelial <5 /HPF (None Seen); Urine Bacteria None Seen /HPF (<20); Urine Crystals Unidentified Few /HPF (None Seen); Urine Culture Reflex Order REFLEXED; Urine Mucus Slight /HPF (None Seen); Urine RBC >50 /HPF (None Seen); Urine WBC >50 /HPF (<5); Urine WBC Clump Few /HPF (None Seen)
[2023-11-24 09:14] LABS: Specific Gravity 1.021 (1.005-1.030); Urine Bilirubin NEGATIVE (Negative); Urine Blood 3+ (OVER) (Negative); Urine Clarity Extremely Turbid (Clear); Urine Color Yellow (Yellow); Urine Glucose TRACE (Negative); Urine Ketones NEGATIVE (Negative); Urine Microscopic Reflex YN NO UMIC; Urine Nitrite NEGATIVE (Negative); Urine Protein 1+ (Negative); Urine Urobilinogen Normal (Normal); Urine pH 5.5 (5.0-7.0)
--- NOTE | 2023-11-24 09:23 | RAD REPORT ---
EXAM: Head Brain Wo Cont HISTORY: ams COMPARISON: 12/22/2021 TECHNIQUE: Multiple contiguous axial images were obtained for a CT of the brain without contrast. Sag ittal and coronal reformats were performed. One or more of the following dose reduction techniques were used: Automated exposure control, adjus tment of the mA and kV according to patient size, and iterative reconstruction. Unless otherwise specified, incidental findings do not require dedicated imaging follow-up. FINDINGS: No evidence of hydrocephalus, intracranial hemorrhage, or extra-axial fluid collection. Stable centrally predominant volume loss with stable ventricular prominence as well as prominence of the sylvian fissures and opercular sulci. Relative crowding of the sulci near the vertex The calvarium is intact. The visualized paranasal sinuses and mastoid air cells are essentially clear . IMPRESSION: No evidence of acute intracranial abnormality. Stable somewhat disproportionate prominence of the ventricles and sylvian fissures. Findings may rela te to central predominant volume loss versus normal pressure hydrocephalus. Please correlate clinically.
--- NOTE | 2023-11-24 09:46 | RAD REPORT ---
EXAM: CT CHEST, ABDOMEN AND PELVIS WITHOUT CONTRAST CLINICAL INDICATION: Male, 73 years old. [facility] MAIN sepsis Bed Name: 2 TECHNIQUE: CT chest, abdomen and pelvis was performed, without IV contrast, as per department protoco l. Axial, sagittal and coronal reconstructions were obtained. One or more of the following dose reduction techniques were used: Automated exposure control, adjustment of the mA and/or kV according to the patient size, and/or iterative reconstruction. Unless otherwise specified, incidental findings do not require dedicated imaging follow-up. COMPARISON: 04/28/2023 CT abdomen pelvis. Chest radiograph of the same day FINDINGS: The lack of intravenous contrast limits the sensitivity of this exam for evaluation of solid visceral organs, vascular structures, and retroperitoneum. Chest: LOWER NECK/CHEST WALL: Visualized thyroid gland and soft tissues are normal. Endotracheal and enteric tubes in place. Moderately dense aortic annulus and mitral valve calcifications. LUNGS AND AIRWAYS: Airways are clear. Bilobed right distal pleural based nodule,, with a bilobed some what exophytic 1.7 cm component. The mass measures a total left 2.2 x 1.8 x 1.6 cm in greatest dimensions. Bibasilar dependent atelectatic changes more pronounced on the right. 5 mm left lower lob e granuloma. PLEURA: Trace layering right pleural effusion. No pneumothorax. MEDIASTINUM AND LYMPH NODES: No mediastinal mass or fluid collection. Normal size mediastinal, hilar, and axillary lymph nodes. THORACIC AORTA: Normal caliber and configuration. PULMONARY ARTERIES: Normal caliber. HEART: Unremarkable. Abdomen/Pelvis LIVER: Normal in size and contour. No focal lesion. GALLBLADDER/BILE DUCTS: Status post cholecystectomy. PANCREAS: No mass, ductal dilation, or kimberlee-pancreatic fluid. SPLEEN: Normal size. No focal lesion. ADRENALS: Stable fat-containing ovoid 2.6 cm mass, most compatible with a myelolipoma. KIDNEYS AND URETERS: Normal size and contour. No hydronephrosis. GASTROINTESTINAL TRACT: Stomach is non-dilated. Small bowel has normal course and caliber. Rectal wal l thickening and adjacent fat stranding extending into the presacral space. Mild distal colonic diverticulosis. PERITONEUM: Trace free fluid more so in the right paracolic gutter. LYMPH NODES: No lymphadenopathy. ABDOMINAL AORTA AND OTHER VESSELS: Normal caliber aorta and IVC. URINARY BLADDER: Normal contour. REPRODUCTIVE ORGANS: No pathologic process. MUSCULOSKELETAL: No acute or suspicious osseous abnormality. ADDITIONAL FINDINGS: Small umbilical hernia and a small broad-based supraumbilical fat-containing 2.2 cm hernia IMPRESSION: Rectal wall thickening and adjacent fat stranding. Moderate stool burden in the rectum. Findings may relate to stercoral proctitis. Trace right pleural effusion. Incidentally noted bilobed pleural-based right apical nodule up to 2.2 cm in size. 2017 [facility] Recommendations for Lung Nodule(s): Follow-Up based on size (average of long- and short-axis diameters). Use most suspicious nodule for followup. Single solid lung nodule 9+ mm: Consider non-contrast chest CT at 3 months, PET/CT, or tissue samplin g. If this nodule was detected on an incomplete chest CT, first recommend a prompt, non-contrast chest CT. These guidelines do not apply to patients younger than 35 years, immunocompromised patients, and chin ents with cancer. F/u in patients with significant comorbidities as clinically warranted. For lung cancer screening, adhere to Lung-RADS guidelines. Reference: Radiology. 2017 Aug; 284(1):228-243
[2023-11-24] MEDS ORDERED: NOREPINEPHRINE 4 MG in D5W 250 ML IV SCH (10:00)
--- NOTE | 2023-11-24 10:15 | EKG ---
Test Date: 2023-11-24 Test Time: 06:20:38 Applications Developer: VALENCIA MEASUREMENT RESULTS: Intervals: Rate: 86 WI: 132 QRSD: 88 QT: 382 QTc: 457 [place]iscoe: P: 59 WI: 132 QRS: -17 T: 3 INTERPRETIVE STATEMENTS: Normal sinus rhythm Normal ECG Compared to ECG 01/14/2022 14:53:17 Incomplete right bundle-branch block no longer present Electronically Signed On 11-24-23 10:15:11 CDT by Zeus Collier
[2023-11-24] MEDS ORDERED: HEPARIN 5000 UNIT/ML 1 ML VIAL ONE (10:21)
[2023-11-24] MEDS ORDERED: HEPARIN/D5W 25,000 UNIT/500 ML BAG IV ONE (10:21)
--- NOTE | 2023-11-24 10:39 | ER ---
Nurse's Notes [facility] Name: Dominic Jacobo Age: 73 yrs Sex: Male : 1950 Arrival Date: 11/24/2023 Time: 06:07 Bed 2 Private MD: Diagnosis: Severe sepsis with septic shock;Other pneumonia, unspecified organism;UTI/ Urinary tract infection, site not specified;Subsequent non-ST elevation (NSTEMI) myocardial infarction;Heart failure, unspecified Presentation: 11/23 06:11 Chief complaint: EMS states: pt found on ground with gurgling noises, and unresposive. bm8 Coronavirus screen: At this time, the client does not indicate any symptoms associated with coronavirus-19. Ebola Screen: Patient negative for fever greater than or equal to 101.5 degrees Fahrenheit, and additional compatible Ebola Virus Disease symptoms Patient denies exposure to infectious person. Patient denies travel to an Ebola-affected area in the 21 days before illness onset. No symptoms or risks identified at this time. Initial Sepsis Screen: Does the patient meet any 2 criteria? RR > 20 per min. Altered Mental Status. Yes Does the patient have a suspected source of infection? No. Patient's initial sepsis screen is negative. Risk Assessment: Do you want to hurt yourself or someone else? Patient reports no desire to harm self or others. Onset of symptoms is unknown. 06:11 Method Of Arrival: EMS: [facility] bm8 06:11 Acuity: NICOL 2 bm8 Triage Assessment: 06:18 General: Appears in no apparent distress. uncomfortable, Behavior is listless, bm8 unresponsive. Pain: Denies pain. EENT: No deficits noted. No signs and/or symptoms were reported regarding the EENT system. Neuro: Level of Consciousness is unresponsive, Oriented to none. Cardiovascular: Heart tones S1 S2 present Capillary refill < 3 seconds in bilateral fingers Rhythm is sinus rhythm. Respiratory: Airway is patent Trachea midline Respiratory effort is even, unlabored, Respiratory pattern is regular, symmetrical, Breath sounds are coarse Breath sounds with crackles bilaterally. GI: No signs and/or symptoms were reported involving the gastrointestinal system. : Milligan in place blood in cath tubing. Derm: No signs and/or symptoms reported regarding the dermatologic system. Musculoskeletal: No signs and/or symptoms reported regarding the musculoskeletal system. Historical: - Allergies: 06:18 ambien; bm8 06:18 Promethazine; bm8 - Home Meds: 06:18 metformin 1 Oral tr24 2 tabs once daily [Active]; aspirin 81 mg Oral TbEC 1 tab once bm8 daily [Active]; clopidogrel 75 mg Oral tab 1 tab once daily [Active]; ezetimibe Oral 1 tab once daily [Active]; irbesartan 300 mg Oral tab 1 tab once daily [Active]; metoprolol succinate 25 mg Oral Tb24 2 tabs once daily [Active]; repaglinide 1 mg Oral tab 1 tab 4 times per day [Active]; rosuvastatin 20 mg Oral tab 1 tab once daily [Active]; tolterodine 4 mg Oral cp24 1 cap once daily [Active]; Tresiba FlexTouch U-100 subcutaneous [Active]; - PMHx: 06:18 CAD; Chronic obstructive lung disease; Diabetes - NIDDM; High Cholesterol; bm8 Hypertension; UTI (Hypertension); - PSHx: 06:18 Unable to Obtain; bm8 - Immunization history:: Adult Immunizations up to date. - Infectious Disease History:: Denies. - Social history:: Smoking status: Patient denies any tobacco usage or history of. - Family history:: not pertinent. Screenin:29 [facility] ED Fall Risk Assessment (Adult) History of falling in the last 3 months, bm8 including since admission Yes- fall prone (multiple falls) (3 pts) Confusion or Disorientation Yes (5 pts) Intoxicated or Sedated Yes (3 pts) Impaired Gait Yes (1 pt) Mobility Assist Device Used Yes (1 pt) Altered Elimination Yes (1 pt) Score/Fall Risk Level 3 or more points = High Risk Oriented to surroundings, Maintained a safe environment, Educated pt \T\ family on fall prevention, incl call for assistance when getting out of bed, Assessed \T\ reinforced patient's understanding of fall precautions, Hourly rounding (assess needs \T\ fall precautionary measures) done, Used ambulatory aids as needed (educated on \T\ assisted with), Used gait belt as appropriate Implemented a Fall Risk Plan of Care. Abuse screen: Denies threats or abuse. Nutritional screening: No deficits noted. Tuberculosis screening: No symptoms or risk factors identified. Assessment: 07:05 Reassessment: PT INTUBATED, ET TUBE 7.5, 25 CM \T\ LIP, VENT SETTING 25R, TV 450, PEEP 5, bm8 FIO2 60%. 07:29 Reassessment: Patient appears in no apparent distress at this time. General: Appears in bm8 no apparent distress. Behavior is unresponsive. Pain: Denies pain. Neuro: Level of Consciousness is unresponsive. Cardiovascular: Heart tones S1 S2 present. Respiratory: Ventilator assessment: ET Tube: 7.5 25 CM AT LIP Ventilator Mode: Assist Control (AC) Tidal Volume: 450 Respiratory Rate: 25 FiO2: 60 PEEP: Respiratory: Breath sounds with crackles bilaterally. the patient has severe shortness of breath. 08:39 Reassessment: CALLED RT TO COME FOR ASSISTANCE TO TRANSPORT PT TO CT. db 09:25 Derm: Wound noted pelvis Wound is WOUND TO RIGHT GROIN NEAR PENIS, DIME SIZE. db 10:08 Reassessment: PATIENT CLEANED OF STOOL. NOTED WOUND TO SACRAL AREA. DURING CLEANING PT db NOTED O2 SATURATION DECREASED TO 85%. NOTIFIED RT AND DR. RODRIGUEZ. RT RESPONDED AND DEEP SUCTIONED PATIENT. PT O2 SATURATION NOW 96%. 10:35 Reassessment: PATIENT CLEANED OF BROWN LIQUID STOOL. db 11:19 Reassessment: Patient appears in no apparent distress at this time. Patient and/or db family updated on plan of care and expected duration. Pain level reassessed. FAMILY IS AT BEDSIDE. 11:58 Reassessment: CALL TO CALL CENTER TO GIVE REPORT. PHONE HUNG UP. db 12:03 Reassessment: FAMILY PROVIDED UPDATE. db 12:24 Reassessment: REPORT GIVEN TO NEHA AT [facility] AND TRANSFER FORM SIGNED BY db PATIENT . 12:39 Reassessment: Patient appears in no apparent distress at this time. Patient and/or db family updated on plan of care and expected duration. Pain level reassessed. CALLED PHARMACY FOR LEVOPHED DRIP. 13:08 Reassessment: Patient appears in no apparent distress at this time. Patient and/or db family updated on plan of care and expected duration. Pain level reassessed. EMS ARRIVAL FOR PATIENT TRANSPORT TO [facility]. Vital Signs: 06:11 BP 90 / 65; Pulse 87; Resp 20; Temp 100.2(A); Pulse Ox 100% on Non-rebreather mask; bm8 Weight 103.42 kg; Height 5 ft. 11 in. ; Pain 0/10; 07:10 BP 108 / 67; db 07:15 BP 102 / 63; db 07:20 BP 94 / 64; db 07:25 BP 92 / 69; Pulse 65; db 07:29 BP 94 / 64; Pulse 73; Resp 25; Temp 100.2(A); Pulse Ox 98% on ETT vent; FiO2 60 %; Pain bm8 0/10; 07:30 BP 168 / 87; Pulse 68; db 07:35 BP 100 / 62; Pulse 67; db 07:40 BP 101 / 66; Pulse 65; db 07:45 BP 103 / 68; Pulse 67; db 07:50 BP 97 / 65; db 07:55 BP 113 / 70; Pulse 63; Resp 24; Pulse Ox 97% ; db 07:55 BP 107 / 70; Pulse 67; db 08:05 BP 115 / 64; Pulse 61; Resp 24; Pulse Ox 98% on ETT vent; db 08:10 BP 115 / 69; db 08:15 BP 110 / 69; Pulse 61; db 08:20 BP 112 / 65; db 08:25 BP 120 / 69; db 08:30 BP 123 / 68; Pulse 64; db 08:35 BP 122 / 67; db 08:40 BP 119 / 69; Pulse 66; Resp 25; Pulse Ox 98% on ETT vent; db 08:45 BP 124 / 71; Pulse 67; db 09:07 BP 111 / 63; Pulse 69; db 09:10 BP 100 / 60; db 09:15 BP 104 / 61; Pulse 64; db 09:35 BP 109 / 92 (/pedi); Pulse 64; Pulse Ox 95% on ETT vent; db 09:45 BP 103 / 63; Pulse 70; Resp 22; Pulse Ox 86% ; db 09:50 BP 114 / 65; Pulse 76; Pulse Ox 93% on ETT vent; FiO2 75 %; db 09:55 BP 117 / 70; Pulse 81; db 10:00 BP 95 / 57; Pulse 71; db 10:05 BP 95 / 57; Pulse 69; Resp 25; Pulse Ox 95% on ETT vent; db 10:10 BP 100 / 60; Pulse 69; Resp 25; db 10:15 BP 101 / 62; Pulse 69; db 10:20 BP 105 / 65; db 10:25 BP 104 / 61; db 10:30 BP 120 / 68; Pulse 75; db 10:35 BP 114 / 60; db 10:40 BP 103 / 69; db 10:45 BP 107 / 63; Pulse 68; db 11:00 BP 106 / 63; Pulse 83; Resp 25; Pulse Ox 97% on ETT vent; db 11:05 BP 90 / 73; db 11:10 BP 109 / 65; Pulse 73; db 11:15 BP 104 / 62; Pulse 73; db 11:20 BP 110 / 64; Pulse 77; db 11:25 BP 110 / 65; Pulse 75; db 11:30 BP 108 / 64; Pulse 76; db 11:35 BP 112 / 66; Pulse 78; Resp 25; Pulse Ox 99% on ETT vent; FiO2 50 %; db 11:40 BP 111 / 67; Pulse 81; db 11:45 BP 108 / 65; Pulse 75; db 11:50 BP 101 / 62; Pulse 73; db 11:55 BP 110 / 68; Pulse 75; db 12:00 BP 109 / 66; Pulse 74; db 12:30 BP 118 / 71; Pulse 73; Resp 25; Pulse Ox 99% on ETT vent; FiO2 50 %; db 12:50 BP 120 / 69; Pulse 73; Resp 25; Pulse Ox 99% on ETT vent; db 06:11 Body Mass Index 31.80 (103.42 kg, 180.34 cm) bm8 06:11 Pain Scale: Adult bm8 07:29 Pain Scale: Adult bm8 07:15 map 76. PROPOFOL STARTED 2 MCG/KG/MIN. LEVOPHED TITRATED TO .3 MCG/KG/MIN db 07:20 MAP 74. db 07:25 MAP 78 db 07:30 MAP 111 LOWERED TITRATED LEVOPHED 0.1 MCG/KG/MIN db 07:35 MAP 74. LEVOPHED TITRATED TO 0.2 MCG/KG/MIN db 07:40 MAP 78 db 07:45 MAP 79 db 07:50 MAP 76. TITRATE LEVOPHED TO 2.5 MCG/KG/MIN db 07:55 MAP 82 db 08:10 MAP 83, PROPOFOL TITRAED TO 4 MCG/KG/MIN db 08:15 MAP 81 db 08:20 MAP 80 db 08:25 MAP 85 db 08:30 MAP 85 db 08:35 MAP 84 db 08:45 PROPOFOL INCREASED TO 5 MCG/KG/MIN. MAP 87 db 09:07 MAP 111/63 LEVOPHED TITRATED 0.2 MCG/KG/MIN db 09:10 MAP 73 LEVOPHED TITRATED TO 0.25 db 09:15 MAP 74 db 09:35 MAP 100 db 09:45 MAP 76 db 09:50 MAP80 db 09:55 MAP 85 db 10:00 MAP 69 db 10:05 MAP 68 db 10:10 MAP 73 db 10:15 MAP 75 db 10:20 MAP 76 db 10:25 MAP 74 db 10:30 MAP 84 db 10:35 MAP 77 db 10:40 MAP 79 db 10:45 MAP 77 db 11:00 MAP 77 db 11:05 MAP 80 db 11:10 MAP 78 db 11:15 MAP 76 db 11:20 MAP79 db 11:25 MAP 79 db 11:30 MAP 78 db 11:35 MAP 80. FIO2 SETTINGS CHANGED BY DR. RODRIGUEZ db 11:40 MAP 81 db 11:45 MAP 78 db 11:50 MAP 75 db 11:55 MAP 81 db 12:00 MAP 79 db 12:30 MAP 85 db Vitals: 07:30 Cardiac Rhythm Assessment Regular. db [place] Coma Score: 07:29 Eye Response: none(1). Motor Response: none(1). Verbal Response: none(1). Total: 3. bm8 ED Course: 06:08 Patient arrived in ED. rv1 06:11 Sudarshan Odonnell, RN is Primary Nurse. bm8 06:13 Efrain Melchor MD is Attending Physician. rt 06:17 Chest Single View XRAY In Process Unspecified. EDMS 06:18 Triage completed. bm8 06:18 Arm band placed on left wrist. bm8 06:32 Inserted saline lock: 20 gauge in left forearm, using aseptic technique. Blood bm8 collected. Flushed with 10 mL NS Maintain EMS IV. Dressing intact. Good blood return noted. Site clean \T\ dry. Gauge \T\ site: 20g right forearm. Flushed with 10 mL NS IV is patent, with fluids infusing freely, with good blood return, Flushed right forearm. Oxygen administration via non-rebreather mask \T\ 15L/min Response to oxygen therapy: symptoms improved. 07:00 Chest Single View In Process Unspecified. EDMS 07:05 Assisted provider with central line placement. Set up central line tray. Triple lumen bm8 line placed in left internal jugular. Line placed by Efrain Melchor MD Placement verified by CXR, blood return, Dressed with Tegaderm, Blood was collected. Patient tolerated well. Time-out/Briefing performed prior to start of procedure? Yes. Was handwashing/sanitizing done immediately prior to procedure? Yes. Was patient positioned to in a way to prevent air embolism? Yes. Was procedure site sterilized? Yes, with chlorhexidine. Was the site allowed to dry? Yes. Was local anesthetic and/or sedation utilized? Yes. During the procedure, did the Practitioner(s) maintain a sterile field? Yes. Were unused ports clamped during insertion? Yes. 07:28 Attending Physician role handed off by Efrain Melchor MD ms3 07:28 Lito Rodriguez DO is Attending Physician. ms3 07:29 Patient has correct armband on for positive identification. Placed in gown. Bed in low bm8 position. Call light in reach. Side rails up X2. Client placed on continuous cardiac and pulse oximetry monitoring. NIBP monitoring applied. client onboarding analyst on. Pulse ox on. NIBP on. Door closed. Noise minimized. Visitors limited. Verbal reassurance given. Head of bed elevated. 07:32 Chest Single View XRAY In Process Unspecified. EDMS 07:34 Placed oral airway:. bm8 07:43 Report given to TYRA OLSON. bm8 08:15 Milligan cath REMOVED OLD CATHETER. db 08:35 Milligan cath inserted, using sterile technique, 16 Fr., by ED staff, balloon inflated, to db gravity drainage, urine specimen collected. returned cloudy urine. Patient tolerated well. 08:45 NGT: inserted 14 Fr. other OG verified placement of air over stomach, Patient tolerated db well. 09:00 Patient moved to [facility] WITH RN, RT, AND NURSING STAFF. db 09:06 CT Head Brain wo Cont In Process Unspecified. EDMS 09:06 CT Chest Abdomen Pelvis W/O Contrast In Process Unspecified. EDMS 09:13 Patient moved back from MS. db 10:15 initiated transfer to [facility]. bd 11:21 CXR XRAY In Process Unspecified. EDMS 12:22 pt accepted in transfer to [facility] by dr Casper, admin approval given by sandy Pate, pt going to ICU rm 205. 13:09 Provided Education on: TO FAMILY REGARDING TRANSPORTATION OF PATIENT. db 13:09 Patient transferred, IV remains in place. db Administered Medications: 06:16 CANCELLED (Physician Discretion): cefepime2 grams IVPB at 200 ml/hr once over 30 mins; rt (mix in NS 100 mL) 06:30 Drug: NS 0.9% IV 2000 ml IV at 1 bolus Per protocol; 2000 mL bolus Route: IV; Rate: 1 bm8 bolus; Site: left forearm; 08:00 Follow up: Response: No adverse reaction; IV Status: Completed infusion; IV Intake: db 2000ml 06:31 Drug: Meropenem IV 1 grams IV at calculated rate once; (mix in NS 100 mL) Route: IV; bm8 Rate: calculated rate; Site: left forearm; 07:30 Follow up: Response: No adverse reaction; IV Status: Completed infusion; IV Intake: db 100ml 06:32 Drug: vancoMYCIN IVPB 1 grams IVPB once over 2 hrs Route: IVPB; Infused Over: 2 hrs; bm8 Site: left forearm; 08:00 Follow up: Response: No adverse reaction; IV Status: Completed infusion; IV Intake: db 250ml 06:32 Drug: NS 0.9% IV 1000 ml IV at 1 bolus Per protocol; 1000 mL bolus Route: IV; Rate: 1 bm8 bolus; Site: left forearm; 07:15 Follow up: Response: No adverse reaction; IV Status: Completed infusion; IV Intake: db 1000ml 06:45 Drug: Norepinephrine IV 0.1 mcg/kg/min IV at calculated rate See Administration bm8 Instructions; (Standard concentration 4 mg / 250 mL D5W); Recommended max rate 3 mcg/kg/min; Titrate 0.05 mcg/kg/min as often as every 5 minutes to achieve goal (see titration policy); Goal parameter MAP greater than 65 mmHg. {Note: TITRATED \T\ 0650 15 MCG TITRATED \T\ 0658 25 MCG, TITRATED \T\ 0703 50MCG .} Route: IV; Rate: calculated rate; Site: left forearm; 07:15 Follow up: Rate change 0.3 mcg/kg/min; MAP 76 db 07:30 Follow up: Rate change 0.1 mcg/kg/min; MAP 111 db 07:35 Follow up: Rate change 0.2 mcg/kg/min; MAP 74 db 07:50 Follow up: Rate change 2.5 mcg/kg/min; MAP 76 db 09:13 Follow up: Rate change 0.2 mcg/kg/min; MAP 78 db 13:13 Follow up: Response: No adverse reaction; IV Status: Infusion continued upon transfer; db IV Intake: 540ml 07:03 Drug: Ketamine IVP 150 mg IVP once Route: IVP; Site: left forearm; bm8 12:20 Follow up: Response: No adverse reaction db 07:03 Drug: Rocuronium IVP 150 mg IVP once Route: IVP; Site: left forearm; bm8 13:12 Follow up: Response: No adverse reaction db 07:15 Drug: Propofol IV 5 mcg/kg/min IV at calculated rate See Administration Instructions; db Standard concentration 1000 mg / 100 mL; Recommended max rate 50 mcg/kg/min; Titrate 2 mcg/kg/min every 5 minutes to achieve goal (see titration policy); Goal parameter RASS score 0 to -2 {Note: STARTED AT 2 MCG/KG/MIN. PT BP 102/63 (76).} Route: IV; Rate: calculated rate; Site: left jugular; 08:18 Follow up: Rate change 4 mcg/kg/min; TITRATION db 08:53 Follow up: Rate change 5 mcg/kg/min db 13:12 Follow up: Response: No adverse reaction; IV Status: Infusion continued upon transfer db 07:45 Drug: NS 0.9% IV 500 ml IV at bolus once Route: IV; Rate: bolus; Site: left jugular; db 09:00 Follow up: Response: No adverse reaction; IV Status: Completed infusion; IV Intake: db 500ml 10:22 Drug: Aspirin AZ Suppository 300 mg AZ once Route: AZ; db 12:20 Follow up: Response: No adverse reaction db 10:53 Drug: Heparin (UT Drip) 12 units/kg/hr - ([place] [address] units, D5W IV 500 ml) IV at db calculated rate Per protocol; Max initial rate 1000 units/hr {Co-Signature: bp (George Parker RN).} Route: IV; Rate: calculated rate; Site: left jugular; 13:12 Follow up: Response: No adverse reaction; IV Status: Infusion continued upon transfer db 10:53 Drug: Heparin (UT-Bolus No thrombolytic) - HEParin IVP 60 units/kg IVP once; Max 5000 db units {Co-Signature: bp (George Parker RN).} Route: IVP; Site: left jugular; 13:12 Follow up: Response: No adverse reaction db Medication: 07:29 VIS not applicable for this client. bm8 Intake: 07:15 IV: 1000ml; Total: 1000ml. db 07:30 IV: 100ml; Total: 1100ml. db 08:00 IV: 250ml; Total: 1350ml. db 08:00 IV: 2000ml; Total: 3350ml. db 09:00 IV: 500ml; Total: 3850ml. db 13:13 IV: 540ml; Total: 4390ml. db 09:00 MILLIGAN UPON ARRIVAL TO HOSPITAL db Output: 09:00 Urine: 1000ml (Milligan); Total: 1000ml. db 11:19 Urine: 275ml (Milligan); Total: 1275ml. db 09:00 MILLIGAN [facility]ON [facility]IVAL TO HOSPITAL db Outcome: 10:39 ER care complete, transfer ordered by . ms3 13:09 Transferred by ground EMS to [facility], Transfer form completed. db X-rays sent w/ patient. 13:09 Condition: stable 13:09 Instructed on the need for transfer, 13:14 Patient left the ED. db Signatures: Dispatcher [employer] EDMS Lashonda Soares Marcus, DO DO ms3 Moon Simms, RN RN db Efrain Melchor MD MD rt Villegas, Rebecca rv1 Sudarshan Odonnell RN RN bm8 George Parker RN bp Corrections: (The following items were deleted from the chart) 09:24 09:10 BP 111 / 63; Pulse 69bpm; MAP 111/63 LEVOPHED TITRATED 0.2 MCG/KG/MIN; db db 12:04 11:58 Reassessment: CALL TO CALL CENTER TO GIVE REPORT. db db
--- NOTE | 2023-11-24 10:39 | EDPHYS ---
Physician Documentation [facility] Name: Dominic Jacobo Age: 73 yrs Sex: Male : 1950 Arrival Date: 11/24/2023 Time: 06:07 Bed 2 Private MD: ED Physician Lito Rodriguez HPI: 11/23 07:11 This 73 yrs old Male presents to ER via EMS with complaints of AMS. rt 07:11 Patient presents to the ED with altered mental status, reported hypoxia and rt hypotension. Patient resides at [facility], reportedly found this way this morning. Baseline is awake and alert x 3. No further history could be obtained due to patient with altered mental status. Symptoms are severe in severity, no other aggravating or alleviating factors. Historical: - Allergies: 06:18 ambien; bm8 06:18 Promethazine; bm8 - Home Meds: 06:18 metformin 1 Oral tr24 2 tabs once daily [Active]; aspirin 81 mg Oral TbEC 1 tab once bm8 daily [Active]; clopidogrel 75 mg Oral tab 1 tab once daily [Active]; ezetimibe Oral 1 tab once daily [Active]; irbesartan 300 mg Oral tab 1 tab once daily [Active]; metoprolol succinate 25 mg Oral Tb24 2 tabs once daily [Active]; repaglinide 1 mg Oral tab 1 tab 4 times per day [Active]; rosuvastatin 20 mg Oral tab 1 tab once daily [Active]; tolterodine 4 mg Oral cp24 1 cap once daily [Active]; Tresiba FlexTouch U-100 subcutaneous [Active]; - PMHx: 06:18 CAD; Chronic obstructive lung disease; Diabetes - NIDDM; High Cholesterol; bm8 Hypertension; UTI (Hypertension); - PSHx: 06:18 Unable to Obtain; bm8 - Immunization history:: Adult Immunizations up to date. - Infectious Disease History:: Denies. - Social history:: Smoking status: Patient denies any tobacco usage or history of. - Family history:: not pertinent. ROS: 07:11 Unable to obtain ROS due to altered mental status, rt Exam: 07:11 Constitutional: The patient appears Pale, obtunded, no acute distress rt 07:11 Head/face: NCAT. 07:11 Eyes: Sluggishly reactive pupils. 07:11 ENT: Dry mucous membranes. 07:11 Neck: Trachea midline, 07:11 Cardiovascular: No murmur, poor peripheral pulses, 07:11 Respiratory: Crackles diffusely, 07:11 Abdomen/GI: Nondistended, 07:11 Musculoskeletal/extremity: No deformities. 07:11 Skin: Pale, cool. 07:11 Neuro: GCS 5, appears to move all 4 extremities equal, 07:11 ECG was reviewed by the Attending Physician. rt Vital Signs: 06:11 BP 90 / 65; Pulse 87; Resp 20; Temp 100.2(A); Pulse Ox 100% on Non-rebreather mask; bm8 Weight 103.42 kg; Height 5 ft. 11 in. ; Pain 0/10; 07:10 BP 108 / 67; db 07:15 BP 102 / 63; db 07:20 BP 94 / 64; db 07:25 BP 92 / 69; Pulse 65; db 07:29 BP 94 / 64; Pulse 73; Resp 25; Temp 100.2(A); Pulse Ox 98% on ETT vent; FiO2 60 %; Pain bm8 0/10; 07:30 BP 168 / 87; Pulse 68; db 07:35 BP 100 / 62; Pulse 67; db 07:40 BP 101 / 66; Pulse 65; db 07:45 BP 103 / 68; Pulse 67; db 07:50 BP 97 / 65; db 07:55 BP 113 / 70; Pulse 63; Resp 24; Pulse Ox 97% ; db 07:55 BP 107 / 70; Pulse 67; db 08:05 BP 115 / 64; Pulse 61; Resp 24; Pulse Ox 98% on ETT vent; db 08:10 BP 115 / 69; db 08:15 BP 110 / 69; Pulse 61; db 08:20 BP 112 / 65; db 08:25 BP 120 / 69; db 08:30 BP 123 / 68; Pulse 64; db 08:35 BP 122 / 67; db 08:40 BP 119 / 69; Pulse 66; Resp 25; Pulse Ox 98% on ETT vent; db 08:45 BP 124 / 71; Pulse 67; db 09:07 BP 111 / 63; Pulse 69; db 09:10 BP 100 / 60; db 09:15 BP 104 / 61; Pulse 64; db 09:35 BP 109 / 92 (/pedi); Pulse 64; Pulse Ox 95% on ETT vent; db 09:45 BP 103 / 63; Pulse 70; Resp 22; Pulse Ox 86% ; db 09:50 BP 114 / 65; Pulse 76; Pulse Ox 93% on ETT vent; FiO2 75 %; db 09:55 BP 117 / 70; Pulse 81; db 10:00 BP 95 / 57; Pulse 71; db 10:05 BP 95 / 57; Pulse 69; Resp 25; Pulse Ox 95% on ETT vent; db 10:10 BP 100 / 60; Pulse 69; Resp 25; db 10:15 BP 101 / 62; Pulse 69; db 10:20 BP 105 / 65; db 10:25 BP 104 / 61; db 10:30 BP 120 / 68; Pulse 75; db 10:35 BP 114 / 60; db 10:40 BP 103 / 69; db 10:45 BP 107 / 63; Pulse 68; db 11:00 BP 106 / 63; Pulse 83; Resp 25; Pulse Ox 97% on ETT vent; db 11:05 BP 90 / 73; db 11:10 BP 109 / 65; Pulse 73; db 11:15 BP 104 / 62; Pulse 73; db 11:20 BP 110 / 64; Pulse 77; db 11:25 BP 110 / 65; Pulse 75; db 11:30 BP 108 / 64; Pulse 76; db 11:35 BP 112 / 66; Pulse 78; Resp 25; Pulse Ox 99% on ETT vent; FiO2 50 %; db 11:40 BP 111 / 67; Pulse 81; db 11:45 BP 108 / 65; Pulse 75; db 11:50 BP 101 / 62; Pulse 73; db 11:55 BP 110 / 68; Pulse 75; db 12:00 BP 109 / 66; Pulse 74; db 12:30 BP 118 / 71; Pulse 73; Resp 25; Pulse Ox 99% on ETT vent; FiO2 50 %; db 12:50 BP 120 / 69; Pulse 73; Resp 25; Pulse Ox 99% on ETT vent; db 06:11 Body Mass Index 31.80 (103.42 kg, 180.34 cm) bm8 06:11 Pain Scale: Adult bm8 07:29 Pain Scale: Adult bm8 07:15 map 76. PROPOFOL STARTED 2 MCG/KG/MIN. LEVOPHED TITRATED TO .3 MCG/KG/MIN db 07:20 MAP 74. db 07:25 MAP 78 db 07:30 MAP 111 LOWERED TITRATED LEVOPHED 0.1 MCG/KG/MIN db 07:35 MAP 74. LEVOPHED TITRATED TO 0.2 MCG/KG/MIN db 07:40 MAP 78 db 07:45 MAP 79 db 07:50 MAP 76. TITRATE LEVOPHED TO 2.5 MCG/KG/MIN db 07:55 MAP 82 db 08:10 MAP 83, PROPOFOL TITRAED TO 4 MCG/KG/MIN db 08:15 MAP 81 db 08:20 MAP 80 db 08:25 MAP 85 db 08:30 MAP 85 db 08:35 MAP 84 db 08:45 PROPOFOL INCREASED TO 5 MCG/KG/MIN. MAP 87 db 09:07 MAP 111/63 LEVOPHED TITRATED 0.2 MCG/KG/MIN db 09:10 MAP 73 LEVOPHED TITRATED TO 0.25 db 09:15 MAP 74 db 09:35 MAP 100 db 09:45 MAP 76 db 09:50 MAP80 db 09:55 MAP 85 db 10:00 MAP 69 db 10:05 MAP 68 db 10:10 MAP 73 db 10:15 MAP 75 db 10:20 MAP 76 db 10:25 MAP 74 db 10:30 MAP 84 db 10:35 MAP 77 db 10:40 MAP 79 db 10:45 MAP 77 db 11:00 MAP 77 db 11:05 MAP 80 db 11:10 MAP 78 db 11:15 MAP 76 db 11:20 MAP79 db 11:25 MAP 79 db 11:30 MAP 78 db 11:35 MAP 80. FIO2 SETTINGS CHANGED BY DR. RODRIGUEZ db 11:40 MAP 81 db 11:45 MAP 78 db 11:50 MAP 75 db 11:55 MAP 81 db 12:00 MAP 79 db 12:30 MAP 85 db Roy Coma Score: 07:29 Eye Response: none(1). Motor Response: none(1). Verbal Response: none(1). Total: 3. bm8 Procedures: 07:11 Intubation: Ventilated with 100% NRB prior to procedure. Intubated orally using 4 glide rt scope hyper angulated with 7.5 mm ETT. was successful on first attempt. Ventilated with ventilator. Tube secured with ETT ventura Placement verified by CXR, CO2 detector with (+) color change, auscultating bilateral breath sounds, O2 saturation after procedure was 100 %. Patient tolerated well. Central Line: the site was prepped with Chlorhexidine, a triple lumen catheter was inserted, in the left internal jugular vein, in 1 attempts. placement was verified, by CXR, by blood return, the site was dressed with Chlorhexidine impregnated gauze, the patient tolerated the procedure, well. MDM: 06:13 Patient medically screened. rt 07:00 Transition of care: Care assumed from Efrain Melchor MD. ms3 07:25 Differential Diagnosis Sepsis, CHF, pneumonia, UTI. Data reviewed: vital signs, nurses rt notes, lab test result(s), EKG, radiologic studies. Consideration of Admission/Observation Patient was admitted/placed on observation. I considered the following discharge prescriptions or medication management in the emergency department Medications were administered in the Emergency Department. See MAR. Independent interpretation of the following test(s) in the Emergency Department X-Ray: My interpretation is Infiltrate seen on interpretation of x-ray images. Care significantly affected by the following chronic conditions: Diabetes, Chronic Obstructive Pulmonary Disease. Post IV fluid administration reassessment for Sepsis: Client prescribed 30 mL/kg IVF. Sepsis focused reassessment complete. Focused assessment performed: November 24, 2023 at 07:26 Heart: Regular rate/rhythm. Lungs: Crackles noted. Capillary refill examination performed. Capillary refill noted to be > 2 seconds. Skin examination performed. Skin noted to be pale. Current patient vital signs reviewed: Yes. Neuro: Patient's neurological exam did not improve from previous exam. Cardio: Cardiovascular exam improved from previous exam. Heart rate and blood pressure have improved. Respiratory: Respiratory exam improved from previous exam. Counseling: I had a detailed discussion with the patient and/or guardian regarding the historical points, exam findings, and any diagnostic results supporting the discharge/admit diagnosis, lab results, radiology results, the need for further work-up and treatment in the hospital. Response to treatment: the patient's symptoms have markedly improved after treatment. 08:48 ED course: Sepsis re-evaluation complete. ms3 09:33 Management of patient was discussed with the following: [facility] Former: Dr Collier- ms3 Cardiology- Recommends medical management at this time with ASA and Heparin.. 09:59 ED course: Discussed case with patient's Merissa Jacobo at . Patient is ms3 full code and she will be coming to the Emergency Department.. 11:59 ED course: Vent FiO2 decreased to 50%. ms3 11/23 06:09 Order name: ABG; Complete Time: 09:20 rv1 11/23 06:14 Order name: Blood Culture Adult (2) rt 11/23 06:14 Order name: CBC with Diff; Complete Time: 09:20 rt 11/23 06:14 Order name: CMP; Complete Time: 07:08 rt 11/23 06:14 Order name: Lactate w/ 2H reflex if indic.; Complete Time: 07:08 rt 11/23 06:14 Order name: Protime (+inr); Complete Time: 06:52 rt 11/23 06:14 Order name: Ptt, Activated; Complete Time: 06:52 rt 11/23 06:14 Order name: Urinalysis w/ reflexes; Complete Time: 09:20 rt 11/23 06:14 Order name: Troponin High Sensitivity; Complete Time: 07:08 rt 11/23 06:14 Order name: BNP; Complete Time: 07:08 rt 11/23 09:07 Order name: Ghost Lactate-NO COLLECT Timer; Complete Time: 09:20 EDMS 11/23 09:09 Order name: Manual Differential; Complete Time: 09:20 EDMS 11/23 09:17 Order name: Urine Culture EDMS 11/23 10:06 Order name: ABG; Complete Time: 11:31 ms3 11/23 10:13 Order name: Troponin High Sensitivity; Complete Time: 11:31 db 11/23 10:15 Order name: SARS RAPID; Complete Time: 11:31 bd 11/23 11:17 Order name: Lactate Sepsis 2 HR Follow-up; Complete Time: 11:31 EDMS 11/23 06:14 Order name: Chest Single View XRAY; Complete Time: 06:52 rt 11/23 06:14 Order name: CT Head Brain wo Cont; Complete Time: 09:25 rt 11/23 06:57 Order name: Chest Single View; Complete Time: 09:20 EDMS 11/23 07:09 Order name: Chest Single View XRAY; Complete Time: 09:20 rt 11/23 07:27 Order name: CT Chest Abdomen Pelvis W/O Contrast; Complete Time: 09:48 rt 11/23 09:52 Order name: CXR XRAY; Complete Time: 20:09 ms3 11/23 06:14 Order name: EKG; Complete Time: 06:15 rt 11/23 06:14 Order name: Accucheck; Complete Time: 06:32 rt 11/23 06:14 Order name: Cardiac monitoring; Complete Time: 06:22 rt 11/23 06:14 Order name: EKG - Nurse/Tech; Complete Time: 06:22 rt 11/23 06:14 Order name: IV Saline Lock - Large Bore; Complete Time: 06:22 rt 11/23 06:14 Order name: Labs collected and sent; Complete Time: 06: rt 11/23 06:14 Order name: O2 Per Protocol; Complete Time: 06: rt 11/23 06:14 Order name: O2 Sat Monitoring; Complete Time: 06:22 rt 11/23 06:14 Order name: Vital Signs; Complete Time: 06:22 rt EC:11 Rate is 86 beats/min. Rhythm is regular, Normal Sinus Rhythm with No ectopy. QRS [place] rt is Normal. IA interval is normal. QRS interval is normal. QT interval is normal. No Q waves. T waves are Normal. No ST changes noted. Interpreted by me. Administered Medications: 06:16 CANCELLED (Physician Discretion): cefepime2 grams IVPB at 200 ml/hr once over 30 mins; rt (mix in NS 100 mL) 06:30 Drug: NS 0.9% IV 2000 ml IV at 1 bolus Per protocol; 2000 mL bolus Route: IV; Rate: 1 bm8 bolus; Site: left forearm; 08:00 Follow up: Response: No adverse reaction; IV Status: Completed infusion; IV Intake: db 2000ml 06:31 Drug: Meropenem IV 1 grams IV at calculated rate once; (mix in NS 100 mL) Route: IV; bm8 Rate: calculated rate; Site: left forearm; 07:30 Follow up: Response: No adverse reaction; IV Status: Completed infusion; IV Intake: db 100ml 06:32 Drug: vancoMYCIN IVPB 1 grams IVPB once over 2 hrs Route: IVPB; Infused Over: 2 hrs; bm8 Site: left forearm; 08:00 Follow up: Response: No adverse reaction; IV Status: Completed infusion; IV Intake: db 250ml 06:32 Drug: NS 0.9% IV 1000 ml IV at 1 bolus Per protocol; 1000 mL bolus Route: IV; Rate: 1 bm8 bolus; Site: left forearm; 07:15 Follow up: Response: No adverse reaction; IV Status: Completed infusion; IV Intake: db 1000ml 06:45 Drug: Norepinephrine IV 0.1 mcg/kg/min IV at calculated rate See Administration bm8 Instructions; (Standard concentration 4 mg / 250 mL D5W); Recommended max rate 3 mcg/kg/min; Titrate 0.05 mcg/kg/min as often as every 5 minutes to achieve goal (see titration policy); Goal parameter MAP greater than 65 mmHg. {Note: TITRATED \T\ 0650 15 MCG TITRATED \T\ 0658 25 MCG, TITRATED \T\ 0703 50MCG .} Route: IV; Rate: calculated rate; Site: left forearm; 07:15 Follow up: Rate change 0.3 mcg/kg/min; MAP 76 db 07:30 Follow up: Rate change 0.1 mcg/kg/min; MAP 111 db 07:35 Follow up: Rate change 0.2 mcg/kg/min; MAP 74 db 07:50 Follow up: Rate change 2.5 mcg/kg/min; MAP 76 db 09:13 Follow up: Rate change 0.2 mcg/kg/min; MAP 78 db 13:13 Follow up: Response: No adverse reaction; IV Status: Infusion continued upon transfer; db IV Intake: 540ml 07:03 Drug: Ketamine IVP 150 mg IVP once Route: IVP; Site: left forearm; bm8 12:20 Follow up: Response: No adverse reaction db 07:03 Drug: Rocuronium IVP 150 mg IVP once Route: IVP; Site: left forearm; bm8 13:12 Follow up: Response: No adverse reaction db 07:15 Drug: Propofol IV 5 mcg/kg/min IV at calculated rate See Administration Instructions; db Standard concentration 1000 mg / 100 mL; Recommended max rate 50 mcg/kg/min; Titrate 2 mcg/kg/min every 5 minutes to achieve goal (see titration policy); Goal parameter RASS score 0 to -2 {Note: STARTED AT 2 MCG/KG/MIN. PT BP 102/63 (76).} Route: IV; Rate: calculated rate; Site: left jugular; 08:18 Follow up: Rate change 4 mcg/kg/min; TITRATION db 08:53 Follow up: Rate change 5 mcg/kg/min db 13:12 Follow up: Response: No adverse reaction; IV Status: Infusion continued upon transfer db 07:45 Drug: NS 0.9% IV 500 ml IV at bolus once Route: IV; Rate: bolus; Site: left jugular; db 09:00 Follow up: Response: No adverse reaction; IV Status: Completed infusion; IV Intake: db 500ml 10:22 Drug: Aspirin IA Suppository 300 mg IA once Route: IA; db 12:20 Follow up: Response: No adverse reaction db 10:53 Drug: Heparin (MD Drip) 12 units/kg/hr - ([place] [address] units, D5W IV 500 ml) IV at db calculated rate Per protocol; Max initial rate 1000 units/hr {Co-Signature: bp (George Parker RN).} Route: IV; Rate: calculated rate; Site: left jugular; 13:12 Follow up: Response: No adverse reaction; IV Status: Infusion continued upon transfer db 10:53 Drug: Heparin (MD-Bolus No thrombolytic) - HEParin IVP 60 units/kg IVP once; Max 5000 db units {Co-Signature: bp (George Parker RN).} Route: IVP; Site: left jugular; 13:12 Follow up: Response: No adverse reaction db Disposition: 12:00 Chart complete. ms3 Disposition Summary: 11/24/23 10:39 Transfer Ordered Notes: Transfer Location: [facility] ms3 Reason: Higher level of care ms3 Condition: Stable ms3 Problem: new ms3 Symptoms: are unchanged ms3 Accepting Physician: (11/24/23 13:14) db Diagnosis - Severe sepsis with septic shock ms3 - Other pneumonia, unspecified organism ms3 - UTI/ Urinary tract infection, site not specified ms3 - Subsequent non-ST elevation (NSTEMI) myocardial infarction ms3 - Heart failure, unspecified ms3 Forms: - Medication Reconciliation Form ms3 - SBAR form ms3 Critical care time excluding procedures: 11:59 Critical care time: Bedside Care: 60 minutes, Consultation: 10 minutes, Family ms3 Intervention: 10 minutes. Total time: 80 minutes Signatures: Dispatcher [employer] EDGeorge Salinas, RN RN bp Lito Rodriguez DO DO ms3 Moon Simms RN RN db Efrain Melchor MD MD rt Sudarshan Odonnell RN RN bm8 George Praker RN bp Corrections: (The following items were deleted from the chart) 06:09 06:09 Arterial Blood Gas+RC.LAB.BRZ ordered. EDMS EDMS 06:15 06:15 BLOOD CULTURE*+BA.LAB.BRZ ordered. EDMS EDMS 06:15 06:15 CBC+H.LAB.BRZ ordered. EDMS EDMS 06:15 06:15 COMPREHENSIVE METABOLIC PANEL+C.LAB.BRZ ordered. EDMS EDMS 06:15 06:15 LACTATE+C.LAB.BRZ ordered. EDMS EDMS 06:15 06:15 PROTIME (+INR)+COAG.LAB.BRZ ordered. EDMS EDMS 06:15 06:15 PTT, ACTIVATED+COAG.LAB.BRZ ordered. EDMS EDMS 06:15 06:15 Urinalysis+U.LAB.BRZ ordered. EDMS EDMS 06:15 06:15 Troponin High Sensitivity+C.LAB.BRZ ordered. EDMS EDMS 06:15 06:15 PROBNP+C.LAB.BRZ ordered. EDMS EDMS 06:15 06:15 Chest Single View+RAD.RAD.BRZ ordered. EDMS EDMS 06:16 06:14 Cefepime IVPB 2 grams IVPB at 200 ml/hr once over 30 mins; (mix in NS 100 mL) rt ordered. rt 07:28 07:28 Chest Abdomen Pelvis Wo Con+CT.RAD.BRZ ordered. EDMS EDMS 12:00 07:25 Critical care time: Bedside Care: 40 minutes, Consultation: 5 minutes. Total ms3 time: 45 minutes rt 13:14 10:39 ms3 db
[2023-11-24] MEDS ORDERED: ASPIRIN 300 MG/SUPP PR SCH (11:00)
[2023-11-24 11:06] LABS: SARS-CoV-2 Antigen CONTROL BLUE LINE VIS/BG OK; SARS-CoV-2 Antigen Rapid Res Negative (Negative)
[2023-11-24 11:07] LABS: Blood O2 Saturation 98.2 % (92-98.5)
[2023-11-24 11:08] LABS: Arterial Blood Carboxyhemoglob 0.9 % (0-1.5)
--- NOTE | 2023-11-24 11:46 | RAD REPORT ---
EXAMINATION: ONE VIEW CHEST XR CLINICAL INDICATION: Male, 73 years old.,hypoxia, decreased L breath sounds TECHNIQUE: Frontal chest projection is submitted. Examination is limited by patient positioning and t echnique. COMPARISON: 11/24/2023 radiograph at 0712 hours FINDINGS: Endotracheal tube and left IJ CVC are unchanged in position. Enteric tube has been placed, with tip n ear the fundus/body junction. Decreased inspiratory effort with pattern of mild central interstitial prominence, stable. No pneumothorax or sizable effusion. The heart is normal in size, w ith sequelae of CABG again seen. IMPRESSION: Satisfactory positioning of an enteric tube. Endotracheal tube and left IJ CVC are stable. Stable hossein tral interstitial prominence which may reflect central congestion or early edema.
[2023-11-24 13:34] VITALS: TEMP 100.2
[2023-11-24 14:43] VITALS: O2SAT 99
[2023-11-24 14:54] VITALS: BP 120/69
== END 2023-11-24 13:14 | disposition short-term general hospital (02) ==
LOC: ER 06:07
DX: J18.8 Other pneumonia, unspecified organism (principal); R65.21 Severe sepsis with septic shock; N39.0 Urinary tract infection, site not specified; I22.2 Subsequent non-ST elevation (NSTEMI) myocardial infarction; I21.9 Acute myocardial infarction, unspecified; I50.9 Heart failure, unspecified; J44.9 Chronic obstructive pulmonary disease, unspecified; I10 Essential (primary) hypertension; E11.9 Type 2 diabetes mellitus without complications; E78.00 Pure hypercholesterolemia, unspecified; Z11.52 Encounter for screening for COVID-19
CPT/HCPCS: 93005; 87040 ×2; 87088; 85025; 87086; 36415; 87205 ×4; 85610; 83605 ×2; 85730; 87077 ×3; 87186 ×3; 81003; 84484 ×2; 80053; 83880; 70450; 71250; 74176; 71045 ×4; 82805 ×2; 31500; 51702; 43753; 99291; 99292; 36556; 87811; 36600 ×2; 94002 ×2; J1644; J2704; J2185; J0171; J7060 ×2; J7050; J7040; J7030 ×2

== ENCOUNTER 2024-03-08 17:54 | Inpatient (IN) | payer OTHER ==
[2024-03-08] MEDS ORDERED: NA CHLORIDE 0.9% 1,000 ML ONE (18:30)
[2024-03-08] MEDS ORDERED: D5 0.9 NS 1,000 ML IV ONE (18:31)
--- NOTE | 2024-03-08 19:08 | RAD REPORT ---
EXAMINATION: ONE VIEW CHEST XR CLINICAL INDICATION: Male, 74 years old.,AMS TECHNIQUE: Frontal chest projection is submitted. Examination is limited by patient positioning and t echnique. COMPARISON: 11/24/2023 FINDINGS: The lungs are hypoinflated, but grossly clear. Interval improvement of central interstitial prominenc e. Interval extubation, removal of enteric tube and left IJ CVC. No pneumothorax or sizable effusion. The heart is normal in size. Mediastinal contours are unchanged. IMPRESSION: No acute intrathoracic abnormalities.
[2024-03-08 19:12] LABS: Absolute Basophils 0.1 K/uL (0-0.5); Absolute Lymphocytes (CBC) 1.6 K/uL (0.7-4.9); Absolute Monocytes 1.3 K/uL (0.1-1.3); Basophils % 0.3 % (0-1.3); Hematocrit 35.9 % (39.6-49.0); Hemoglobin 11.6 g/dL (13.6-17.9); Lymphocytes % 7.5 % (15.3-44.8); MCHC 32.4 g/dL (32.0-36.0); MCV 80.1 fL (80-100); MPV 7.3 fL (7.6-11.3); Neutrophils % 86.2 % (41.7-73.7); Platelets 510 thou/uL (152-406); RBC Red Blood Cell Count 4.48 M/uL (4.33-5.43); Red Cell Distribution Width 16.7 % (12.1-15.2)
[2024-03-08 19:19] LABS: SARS-CoV-2 Antigen CONTROL BLUE LINE VIS/BG OK; SARS-CoV-2 Antigen Rapid Res Negative (Negative)
[2024-03-08 19:21] LABS: PTT, Activated Partial Thromb 29.7 SECONDS (24.3-36.9); Protime INR 1.34
[2024-03-08] MEDS ORDERED: CEFTRIAXONE 1000 MG/VIAL ONE (19:35)
[2024-03-08 19:40] LABS: Blood Morphology Comment NOTED (NOT SEEN); Platelet Estimate INCR; White Blood Cell Scan OK (OK)
[2024-03-08 19:41] LABS: Anisocytosis 1+; Macrocytosis 1+
--- NOTE | 2024-03-08 19:46 | RAD REPORT ---
EXAMINATION: CT Abdomen Pelvis Wo Contrast CLINICAL INDICATION: Male, 74 years old. AMS, indwelling catheter TECHNIQUE: CT abdomen and pelvis was performed, without IV contrast, as per department protocol. Axia l, sagittal and coronal reconstructions were obtained. One or more of the following dose reduction techniques were used: Automated exposure control, adjustment of the mA and kV according to the patien t size, and iterative reconstruction. Unless otherwise specified, incidental findings do not require dedicated imaging follow-up. COMPARISON: 04/28/2023 FINDINGS: The lack of intravenous contrast limits the sensitivity of this exam for evaluation of solid visceral organs, vascular structures, and retroperitoneum. LOWER CHEST: Patchy dependent alveolar opacities worse on the right. Trace right layering effusion. LIVER: Normal in size and contour. No focal lesion. BILIARY SYSTEM: Status post cholecystectomy. SPLEEN: Normal size. No focal lesion. PANCREAS: No mass, ductal dilation, or kimberlee-pancreatic fluid. ADRENALS: Ovoid left adrenal 2.3 cm lesion containing macroscopic fat, and a smaller right adrenal 1. 7 cm lesion containing macroscopic fat, both are grossly stable, these are most suggestive of myelolipomas. Soft tissue density nodular thickening of the left adrenal gland is also stable. KIDNEYS AND URETERS: Normal size and contour. No hydronephrosis. Perinephric and peripelvic fat stran ding, symmetric, without discrete collections within limits of noncontrast evaluation. No radiopaque calculi. URINARY BLADDER: Decompressed limiting evaluation with Lagunas catheter in place. Allowing for this, ap parent diffuse bladder wall thickening, similar to multiple prior exams. GASTROINTESTINAL TRACT: No evidence of bowel obstruction, significant free fluid, free air or abscess . APPENDIX: Normal appendix. LYMPH NODES: No lymphadenopathy. MUSCULOSKELETAL: No acute or suspicious osseous abnormality. ADDITIONAL FINDINGS: None. IMPRESSION: Bilateral perinephric and peripelvic fat stranding involving both kidneys, without evidence of hydrou reteronephrosis or obstructive calculi. Findings may relate to ascending infection in the appropriate clinical setting. Chronic appearing wall thickening of the decompressed urinary bladder, may relate to chronic cystitis . Bibasilar airspace opacities with small effusion on the right, raising concern for pneumonitis or asp iration. Stable bilateral adrenal benign lesions, as well as left adrenal nodular thickening with stability tapia ggesting benign nature.
--- NOTE | 2024-03-08 19:48 | RAD REPORT ---
EXAM: CT Head Brain Wo Cont HISTORY: ams COMPARISON: 11/24/2023 TECHNIQUE: Multiple contiguous axial images were obtained for a CT of the brain without contrast. Sag ittal and coronal reformats were performed. One or more of the following dose reduction techniques were used: Automated exposure control, adjus tment of the mA and kV according to patient size, and iterative reconstruction. Unless otherwise specified, incidental findings do not require dedicated imaging follow-up. FINDINGS: No evidence of hydrocephalus, intracranial hemorrhage, or extra-axial fluid collection. Moderate brain atrophy with mild burden of periventricular and deep white matter chronic microvascul ar ischemic changes present. The calvarium is intact. The visualized paranasal sinuses and mastoid air cells are essentially clear . IMPRESSION: No evidence of acute intracranial abnormality. Stable chronic findings as above
[2024-03-08 19:56] LABS: AST/SGOT 16 U/L (15-37); Albumin 2.2 g/dL (3.4-5.0); Albumin/Globulin Ratio 0.4 (1.1-1.8); Alkaline Phosphatase 128 U/L (45-117); Anion Gap 19.3 mEq/L (5.0-15.0); BUN Blood Urea Nitrogen 93 mg/dL (7-18); Bicarbonate 18 mEq/L (21-32); Bilirubin Total 0.5 mg/dL (0.2-1.0); Globulin 4.9 g/dL (2.3-3.5); Glomerular Filtration Rate 8 ml/min (=/>90); Glucose Level 87 mg/dL (74-106); Potassium 4.3 mEq/L (3.5-5.1); Protein, Total 7.1 g/dL (6.4-8.2); Sodium Level 130 mEq/L (136-145)
[2024-03-08 19:58] LABS: ALT/SGPT < 14 U/L (16-61)
[2024-03-08 20:09] LABS: Specific Gravity 1.014 (1.005-1.030); Sqamous Epithelial None Seen /HPF (None Seen); Urine Bacteria 20-50 /HPF (<20); Urine Bilirubin NEGATIVE (Negative); Urine Blood 3+ (Negative); Urine Clarity Extremely Turbid (Clear); Urine Color Orange (Yellow); Urine Crystals Unidentified Few /HPF (None Seen); Urine Culture Reflex Order REFLEXED; Urine Glucose NEGATIVE (Negative); Urine Ketones NEGATIVE (Negative); Urine Microscopic Reflex YN ORDER UMIC; Urine Mucus 4+ /HPF (None Seen); Urine Nitrite 1+ (Negative); Urine Protein 3+ (Negative); Urine RBC >50 /HPF (None Seen); Urine Urobilinogen Normal (Normal); Urine WBC >50 /HPF (<5); Urine WBC Clump Many /HPF (None Seen)
[2024-03-08] MEDS ORDERED: NA CHLORIDE 0.9% 500 ML ONE (20:10)
--- NOTE | 2024-03-08 20:17 | EDPHYS ---
Physician Documentation [facility] Name: Dominic Jacobo Age: 74 yrs Sex: Male : 1950 Arrival Date: 03/08/2024 Time: 17:54 Bed 7 Private MD: ED Physician Osmar Smith HPI: 03/08 17:56 This 74 yrs old Male presents to ER via Unassigned with complaints of ams. rn 17:56 The patient presents with decreased responsiveness. Onset: The symptoms/episode rn began/occurred at an unknown time. Associated signs and symptoms: Pertinent positives: confusion, Pertinent negatives: abdominal pain, chest pain. Current symptoms: In the emergency department the patient's symptoms are unchanged from the initial presentation. It is unknown whether or not the patient has had similar symptoms in the past. EMS brought patient from longterm for altered mental status and decreased responsiveness. group home noticed altered mental status that began yesterday. No trauma. No reported fever but longterm reported low blood pressure and dark urine with decreased urinary output. Patient denies pain. Per EMS report patient is usually more alert and talkative than he is now.. Historical: - Allergies: 18:10 Promethazine; kc6 18:10 ambien; kc6 - PMHx: 18:10 CAD; Chronic obstructive lung disease; Diabetes - NIDDM; High Cholesterol; kc6 Hypertension; UTI (Hypertension); Alzheimer's disease; Hypothyroidism; Anemia; Parkinson's disease; Congestive heart failure; - PSHx: 18:10 Unable to Obtain; kc6 - Immunization history:: Adult Immunizations up to date. - Infectious Disease History:: Denies. - Family history:: not pertinent. - Social history:: Smoking status: Patient denies any tobacco usage or history of. - Hospitalizations: : No recent hospitalization is reported. - History obtained from: EMS. ROS: 17:58 Cardiovascular: Negative for chest pain Abdomen/GI: Negative for abdominal pain rn Exam: 17:58 Constitutional: Disheveled patient, appears dehydrated and slow to respond but answers rn some questions Head/Face: Normocephalic, atraumatic. ENT: Dry mucous membranes with dry cracked lips Cardiovascular: Tachycardic, regular. No pulse deficits. Respiratory: Mild tachypnea, no retractions Abdomen/GI: Soft, no focal tenderness or distention 18:51 ECG was reviewed by the Attending Physician. rn Vital Signs: 18:07 BP 93 / 55; Pulse 108; Resp 20 S; Temp 98.6(A); Pulse Ox 91% on R/A; Weight 87.5 kg kc6 (M); Height 6 ft. 0 in. (R); 19:00 BP 101 / 58; Pulse 105; Resp 18 S; Pulse Ox 100% on NC; kc6 19:41 BP 97 / 54; Pulse 104; Resp 18; Pulse Ox 100% on 3 lpm NC; br2 19:58 BP 97 / 54; Pulse 102; Resp 14; Temp 97.2(O); Pulse Ox 100% on R/A; br2 21:46 BP 97 / 54; Pulse 10; Resp 18 S; Pulse Ox 99% on R/A; br2 23:44 BP 95 / 55; Pulse 111; Resp 20 S; Pulse Ox 96% on R/A; br2 18:07 Body Mass Index 26.16 (87.50 kg, 182.88 cm) 6 MDM: 17:55 Medical Screening Exam initiated rn 19:55 ED course: Patient with elevated lactate greater than 4, will not give full 30 mg/kg rn bolus due to congestive heart failure and concern of volume overload. Currently ordered 1500 mL and will reassess response to fluid. Sepsis reevaluation complete.. 20:12 Differential Diagnosis: electrolyte abnormality, UTI, volume depletion. Data reviewed: rn vital signs, nurses notes, lab test result(s), radiologic studies, CT scan, plain films, and as a result, I will admit patient. Consideration of Admission/Observation Patient was admitted/placed on observation. Escalation of care including admission/observation considered. Counseling: I had a detailed discussion with the patient and/or guardian regarding the historical points, exam findings, and any diagnostic results supporting the discharge/admit diagnosis, lab results, radiology results, the need for further work-up and treatment in the hospital. ED course: Updated family member Merissa Jacobo, can be contacted at [phone]. Notified her of acute on chronic kidney failure and presumed urinary tract infection, possible pyelonephritis. Antibiotics ordered after blood cultures. Will not give full 30/kg bolus at this time due to congestive heart failure and volume overload, will reevaluate. Another 500 bolus ordered at this time and blood pressure currently 97/54. Sepsis reevaluation complete. 20:15 ED course: I personally spent 35 minutes engaged in work directly related to the rn individual patient's care. This does not include any time spent performing procedures. The patient has been deemed critically ill because of management of severe sepsis with septic shock, fluid resuscitation, altered mental status and delirium secondary also to acute on chronic renal failure, organization of hospitalization and discussions with family member.. 03/08 17:55 Order name: Blood Culture Adult (2) rn 03/08 17:55 Order name: CBC with Diff; Complete Time: 19:54 03/08 17:55 Order name: CMP; Complete Time: 20:09 03/08 17:55 Order name: Lactate w/ 2H reflex if indic.; Complete Time: 19:54 03/08 17:55 Order name: Protime (+inr); Complete Time: 19:25 03/08 17:55 Order name: Ptt, Activated; Complete Time: 19:25 03/08 17:55 Order name: Urinalysis w/ reflexes; Complete Time: 20:14 03/08 17:56 Order name: Flu; Complete Time: 19:25 03/08 17:56 Order name: SARS-COV-2 Antigen Rapid; Complete Time: 19:25 03/08 18:14 Order name: glucometer results - FOR PT WITH NO ID; Complete Time: 19:11 [facility] 03/08 19:20 Order name: CBC Smear Scan; Complete Time: 19:54 [facility] 03/08 19:20 Order name: Glucose, Ancillary Testing; Complete Time: 19:25 [facility] 03/08 20:00 Order name: Ghost Lactate-NO COLLECT Timer EDAR 03/08 20:20 Order name: Urine Culture EDAR 03/08 23:04 Order name: Urinalysis w/ reflexes EDAR 03/08 23:04 Order name: CBC with Automated Diff EDAR 03/08 23:04 Order name: CBC with Automated Diff EDAR 03/08 23:04 Order name: Comprehensive Metabolic Panel EDAR 03/08 23:04 Order name: Comprehensive Metabolic Panel EDAR 03/08 23:05 Order name: Lactate Sepsis 2 HR Follow-up EDAR 03/08 17:55 Order name: Chest Single View XRAY; Complete Time: 19:11 03/08 17:58 Order name: CT Head Brain wo Cont; Complete Time: 19:54 rn 03/08 18:23 Order name: CT Abd/Pelvis - Without Contrast; Complete Time: 19:54 rn 03/08 17:55 Order name: Accucheck; Complete Time: 18:13 rn 03/08 17:55 Order name: Cardiac monitoring; Complete Time: 18:59 rn 03/08 17:55 Order name: EKG - Nurse/Tech; Complete Time: 18:59 rn 03/08 17:55 Order name: IV Saline Lock - Large Bore; Complete Time: 18:13 rn 03/08 17:55 Order name: Labs collected and sent; Complete Time: 18:59 rn 03/08 17:55 Order name: O2 Per Protocol; Complete Time: 18: rn 03/08 17:55 Order name: O2 Sat Monitoring; Complete Time: 18:13 rn 03/08 17:55 Order name: Vital Signs; Complete Time: 18:13 rn EC:51 Rate is 107 beats/min. Rhythm is regular. QRS [place] is Normal. AR interval is normal. rn QRS interval is normal. QT interval is normal. No Q waves. T waves are Normal. No ST changes noted. Clinical impression: Sinus tachycardia. Interpreted by me. Reviewed by me. Administered Medications: 18:59 Drug: NS 0.9% IV 1000 ml IV at 1000 ml once; to be given as a bolus over 60 minutes kc6 Route: IV; Rate: 1000 ml; Site: right forearm; 20:00 Follow up: Response: No adverse reaction; IV Status: Completed infusion; IV Intake: br2 1000ml 18:59 Drug: D5-NS IV 1000 ml IV at 125 ml/hr continuous Route: IV; Rate: 125 ml/hr; Site: kc6 right antecubital; 23:45 Follow up: IV Status: Infusion continued; IV Intake: 500ml br2 19:40 Drug: Rocephin IV 1 grams IV at calculated rate once; Given slow IV push per pharmacy br2 instructions Route: IV; Rate: calculated rate; Site: right antecubital; 20:00 Follow up: Response: No adverse reaction; IV Intake: 10ml br2 19:45 CANCELLED (Duplicate Order): ns 0.9% 1000 ml IV at 1000 ml once; to be given as a bolus rn over 60 minutes 20:12 Drug: NS 0.9% IV 500 ml 500 ml IV at 1 bolus once; to be given as a bolus over 30 br2 minutes Volume: 500 ml; Route: IV; Rate: 1 bolus; Site: right antecubital; 21:00 Follow up: IV Status: Completed infusion; IV Intake: 500ml br2 Disposition: 20:15 Critical Care:. rn Disposition Summary: 03/08/24 20:16 Hospitalization Ordered Notes: Hospitalization Status: Inpatient Admission rn Provider: Eris Pruett rn Condition: Stable rn Problem: new rn Symptoms: have improved rn Bed/Room Type: Standard rn Location: Telemetry/MedSurg (Inpatient)(03/08/24 22:56) [facility] Room Assignment: [facility](03/08/24 22:56) [facility] Diagnosis - Acute kidney failure, unspecified rn - Pyelonephritis acute rn Forms: - Medication Reconciliation Form rn - SBAR form rn - Leadership Thank You Letter international account manager time excluding procedures: 20:15 Critical care time: Bedside Care: 35 minutes. Total time: 35 minutes rn Signatures: Dispatcher [employer] EDLarissa Hall, RN Osmar Proctor MD MD rn Campbell, Kaitlyn, RN RN Heide West [facility] Virginia Huntley RN RN br2 Corrections: (The following items were deleted from the chart) 17:56 17:56 BLOOD CULTURE*+BA.LAB.BRZ ordered. EDMS EDMS 17:56 17:56 CBC+H.LAB.BRZ ordered. EDMS EDMS 17:56 17:56 COMPREHENSIVE METABOLIC PANEL+C.LAB.BRZ ordered. EDMS EDMS 17:56 17:56 LACTATE+C.LAB.BRZ ordered. EDMS EDMS 17:56 17:56 PROTIME (+INR)+COAG.LAB.BRZ ordered. EDMS EDMS 17:56 17:56 PTT, ACTIVATED+COAG.LAB.BRZ ordered. EDMS EDMS 17:56 17:56 Urinalysis+U.LAB.BRZ ordered. EDMS EDMS 17:56 17:56 Chest Single View+RAD.RAD.BRZ ordered. EDMS EDMS 17:56 17:56 Influenza Screen (A \T\ B)+BA.LAB.BRZ ordered. EDMS EDMS 17:56 17:56 SARS-COV-2 Antigen Rapid+I.LAB.BRZ ordered. EDMS EDMS 19:45 19:44 NS 0.9% IV 1000 ml IV at 1000 ml once; to be given as a bolus over 60 minutes rn ordered. rn 22:16 20:16 rn kmf 22:26 20:16 Telemetry/MedSurg (Inpatient) rn kl 22:26 22:16 222 kmf kl 22:56 22:26 [facility] kl kmf 22:56 22:26 ERHOLD- kl f
--- NOTE | 2024-03-08 20:17 | ER ---
Nurse's Notes [facility] Name: Dominic Jacobo Age: 74 yrs Sex: Male : 1950 Arrival Date: 03/08/2024 Time: 17:54 Bed 7 Private MD: Diagnosis: Acute kidney failure, unspecified;Pyelonephritis acute Presentation: 03/08 18:07 Chief complaint: EMS states: they were toned out to [facility] for AMS. upon EMS kc6 arrival pts BGL was 41. Coronavirus screen: At this time, the client does not indicate any symptoms associated with coronavirus-19. Ebola Screen: No symptoms or risks identified at this time. Initial Sepsis Screen: Does the patient meet any 2 criteria? HR > 90 bpm. Does the patient have a suspected source of infection? No. Patient's initial sepsis screen is negative. Risk Assessment: Do you want to hurt yourself or someone else? Patient reports no desire to harm self or others. Onset of symptoms was March 08, 2024. Care prior to arrival: Medication(s) given: D50, 1 amp, IV initiated. 20 GA, in the right forearm, Glucose check: 41 Oxygen administered. via nasal cannula. 18:07 Method Of Arrival: EMS: [facility] 18:07 Acuity: NICOL 2 kc Historical: - Allergies: 18:10 Promethazine; kc6 18:10 ambien; kc6 - PMHx: 18:10 CAD; Chronic obstructive lung disease; Diabetes - NIDDM; High Cholesterol; kc6 Hypertension; UTI (Hypertension); Alzheimer's disease; Hypothyroidism; Anemia; Parkinson's disease; Congestive heart failure; - PSHx: 18:10 Unable to Obtain; kc6 - Immunization history:: Adult Immunizations up to date. - Infectious Disease History:: Denies. - Family history:: not pertinent. - Social history:: Smoking status: Patient denies any tobacco usage or history of. - Hospitalizations: : No recent hospitalization is reported. - History obtained from: EMS. Screenin:12 [facility] ED Fall Risk Assessment (Adult) History of falling in the last 3 months, kc6 including since admission No falls in past 3 months (0 pts) Confusion or Disorientation Yes (5 pts) Intoxicated or Sedated No (0 pts) Impaired Gait Yes (1 pt) Mobility Assist Device Used Yes (1 pt) Altered Elimination Yes (1 pt) Score/Fall Risk Level 3 or more points = High Risk Oriented to surroundings, Maintained a safe environment, Educated pt \T\ family on fall prevention, incl call for assistance when getting out of bed. Abuse screen: Denies threats or abuse. Denies injuries from another. Nutritional screening: No deficits noted. Tuberculosis screening: No symptoms or risk factors identified. Assessment: 19:53 Reassessment: Patient and/or family updated on plan of care and expected duration. Pain br2 level reassessed. Patient is alert, oriented x 3, equal unlabored respirations, skin warm/dry/pink. General: Appears uncomfortable, Behavior is calm, cooperative. Pain: Unable to use pain scale. Patient is disoriented. Neuro: [place] Agitation-Sedation Scale (RASS): 0 - Alert and Calm Level of Consciousness is awake, alert, confused, Oriented to DEMENTIA. Cardiovascular: Capillary refill < 3 seconds. Respiratory: Airway is patent Respiratory effort is even, unlabored, Respiratory pattern is regular, symmetrical. GI: No signs and/or symptoms were reported involving the gastrointestinal system. 19:53 : suprapubic catheter in place Urine is cloudy, PURULENT. br2 Vital Signs: 18:07 BP 93 / 55; Pulse 108; Resp 20 S; Temp 98.6(A); Pulse Ox 91% on R/A; Weight 87.5 kg kc6 (M); Height 6 ft. 0 in. (R); 19:00 BP 101 / 58; Pulse 105; Resp 18 S; Pulse Ox 100% on NC; kc6 19:41 BP 97 / 54; Pulse 104; Resp 18; Pulse Ox 100% on 3 lpm NC; br2 19:58 BP 97 / 54; Pulse 102; Resp 14; Temp 97.2(O); Pulse Ox 100% on R/A; br2 21:46 BP 97 / 54; Pulse 10; Resp 18 S; Pulse Ox 99% on R/A; br2 23:44 BP 95 / 55; Pulse 111; Resp 20 S; Pulse Ox 96% on R/A; br2 18:07 Body Mass Index 26.16 (87.50 kg, 182.88 cm) 6 ED Course: 17:55 Patient arrived in ED. rn 17:55 Osmar Smith MD is Attending Physician. rn 18:10 Triage completed. kc6 18:10 Arm band placed on. kc6 18:11 Maintain EMS IV. Dressing intact. Good blood return noted. Site clean \T\ dry. Gauge \T\ yesica 6 site: 20G RFA. Flushed with 10 mL NS. 18:12 Chest Single View XRAY In Process Unspecified. EDMS 18:12 Patient has correct armband on for positive identification. Placed in gown. Bed in low kc6 position. Call light in reach. Side rails up X2. Adult w/ patient. athletic monitor on. Pulse ox on. NIBP on. Door closed. Noise minimized. Lights dimmed. Warm blanket given. Pillow given. 18:25 CT Head Brain wo Cont In Process Unspecified. EDMS 18:25 CT Abd/Pelvis - Without Contrast In Process Unspecified. EDMS 18:59 Sheryl Crane RN is Primary Nurse. [facility] 18:59 Initial lab(s) drawn, by me, sent to lab. EKG done, by ED staff, reviewed by Osmar Smith MD. Inserted saline lock: 22 gauge in right antecubital area, using aseptic technique. Blood collected. Flushed with 10 mL NS. 20:16 Eris Pruett MD is Hospitalizing Provider. rn 03/09 00:04 No provider procedures requiring assistance completed. Patient admitted, IV remains in br2 place. Administered Medications: 03/08 18:59 Drug: NS 0.9% IV 1000 ml IV at 1000 ml once; to be given as a bolus over 60 minutes [facility] Route: IV; Rate: 1000 ml; Site: right forearm; 20:00 Follow up: Response: No adverse reaction; IV Status: Completed infusion; IV Intake: br2 1000ml 18:59 Drug: D5-NS IV 1000 ml IV at 125 ml/hr continuous Route: IV; Rate: 125 ml/hr; Site: kc6 right antecubital; 23:45 Follow up: IV Status: Infusion continued; IV Intake: 500ml br2 19:40 Drug: Rocephin IV 1 grams IV at calculated rate once; Given slow IV push per pharmacy br2 instructions Route: IV; Rate: calculated rate; Site: right antecubital; 20:00 Follow up: Response: No adverse reaction; IV Intake: 10ml br2 19:45 CANCELLED (Duplicate Order): ns 0.9% 1000 ml IV at 1000 ml once; to be given as a bolus rn over 60 minutes 20:12 Drug: NS 0.9% IV 500 ml 500 ml IV at 1 bolus once; to be given as a bolus over 30 br2 minutes Volume: 500 ml; Route: IV; Rate: 1 bolus; Site: right antecubital; 21:00 Follow up: IV Status: Completed infusion; IV Intake: 500ml br2 Medication: 03/09 00:05 VIS not applicable for this client. br2 Intake: 03/08 20:00 IV: 1000ml; Total: 1000ml. br2 20:00 IV: 10ml; Total: 1010ml. br2 21:00 IV: 500ml; Total: 1510ml. br2 23:45 IV: 500ml; Total: 2010ml. br2 Output: 19:58 Urine: 1000ml ([place]); Total: 1000ml. br2 Outcome: 20:16 Decision to Hospitalize by Provider. rn 03/09 00:04 Admitted to Med/surg accompanied by tech, via stretcher, room 411, with oxygen, br2 Condition: stable Instructed on the need for admit, 00:05 Patient left the ED. br2 Addendum: 03/16/2024 12:39 Addendum: Other Glucometer results for pt with no ID should result as 136. k b3 Inadvertently documented as 137. Signatures: Dispatcher [employer] EDMS Osmar Smith MD MD rn Campbell, Kaitlyn, RN RN kc6 Libby Marcelino RN RN kb3 Virginia Huntley RN RN br2
--- NOTE | 2024-03-08 20:25 | P.HP ---
Certification for Inpatient Patient admitted to: Inpatient With expected LOS: >2 Midnights Practitioner: I am a practitioner with admitting privileges, knowledge of patient current condition, hospital course, and medical plan of care. Services: Services provided to patient in accordance with Admission requirements found in Title 42 Section 412.3 of the Code of Federal Regulations Patient History Date of Service: 03/08/24 Reason for admission: AMS History of Present Illness: 74 yrs old Male with past medical history of CAD, COPD, diabetes, hypertension, hyperlipidemia, UTI, Alzheimer's disease, hypothyroidism, anemia, Parkinson's disease, CHF, presents to ER with altered mental status. Patient was brought to ER from [facility] because of the decreased responsiveness. Started earlier today and has been progressively getting worse. Patient cannot provide any history hence most of the history is obtained from the chart review and also talking to the ER physician. EMS brought patient from [facility] for altered mental status and decreased responsiveness. custodial noticed altered mental status that began yesterday. No trauma. No reported fever but [facility] reported low blood pressure and dark urine with decreased urinary output. Patient denies pain. Allergies promethazine Allergy (Verified 04/28/23 16:16) Hives/Rash zolpidem [From Ambien] Adverse Reaction (Verified 05/27/18 21:13) hallucinates Home medications list reviewed: Yes Home Medications: Acetaminophen [8 Hour Acetaminophen] 650 mg PO Q6H PRN 04/28/23 Ascorbic Acid [Vitamin C] 500 mg PO DAILY 04/28/23 Aspirin 891 mg PO DAILY 04/28/23 Atorvastatin Calcium 40 mg PO BEDTIME 04/28/23 Calcium Carbonate [Calcium] 750 mg PO DAILY 04/28/23 Carbidopa/Levodopa [Carbidopa-Levo 25-100 mg Odt] 1 tab PO TID 04/28/23 Clopidogrel Bisulfate [Plavix] 75 mg PO DAILY 04/28/23 Docusate [Colace Cap*] 100 mg PO DAILY 04/28/23 Escitalopram Oxalate [Lexapro] 10 mg PO DAILY 04/28/23 Ezetimibe [Zetia*] 10 mg PO DAILY 04/28/23 Finasteride [Proscar*] 5 mg PO BEDTIME 04/28/23 Gabapentin 300 mg PO DAILY 04/28/23 Hyoscyamine Sulfate [Levsin-Sl] 2 tab PO Q6H PRN 04/28/23 Insulin Degludec [Tresiba] 50 unit SQ BEDTIME 04/28/23 Irbesartan [Avapro] 150 mg PO DAILY 04/28/23 Memantine HCl [Namenda] 5 mg PO BID 04/28/23 Metoprolol Tartrate 25 mg PO BID 04/28/23 Mirtazapine 15 mg PO DAILY 04/28/23 Multivitamin [Multiple Vitamins] 1 tab PO DAILY 04/28/23 Repaglinide 1 mg PO DAILY 04/28/23 Ropinirole HCl 2 mg PO DAILY 04/28/23 Tamsulosin HCl [Flomax] 0.8 mg PO BEDTIME 04/28/23 Tramadol HCl [Ultram] 50 mg PO Q8H PRN 04/28/23 Vibegron [Gemtesa] 75 mg PO DAILY 04/28/23 Vit C/E/Zn/Coppr/Lutein/Zeaxan [Preservision Areds 2 Softgel] 1 tab PO DAILY 04/28/23 Zinc Amino Acid Chelate [Zinc] 50 mg PO DAILY 04/28/23 Amox/Clavulanate [Augmentin 875-125 Tab*] 875 mg PO BID #20 tab 05/01/23 Nitrofurantoin Macrocrystal [Nitrofurantoin] 50 mg PO BID #30 05/01/23 - Past Medical/Surgical History Diabetic: Yes Past Medical History: Reviewed- Non-Contributory -: Diabetes mellitus type 2insulin-dependent -: Hypertension -: Coronary artery disease -: Hyperlipidemia -: Parkinson's Past Surgical History: Reviewed- Non-Contributory -: CABG -: bilateral knee sx -: cholecystectomy Psychosocial/ Personal History: Patient lives at [facility]. - Social History Smoking Status: Unknown if ever smoked Alcohol use: No CD- Drugs: No Caffeine use: Yes Physical Examination - Studies Laboratory Data (last 24 hrs) 03/08/24 03/08/24 03/08/24 18:55 18:55 18:55 WBC 20.90 H Hgb 11.6 L Hct 35.9 L Plt Count 510 H PT 14.0 H INR 1.34 APTT 29.7 Sodium 130 L Potassium 4.3 BUN 93 H Creatinine 6.98 H Glucose 87 Total Bilirubin 0.5 AST 16 ALT < 14 L Alkaline Phosphatase 128 H Microbiology Data (last 24 hrs): 03/08/24 18:40 Nasopharnyx Influenza Type A Antigen Screen - Final 03/08/24 18:40 Nasopharnyx Influenza Type B Antigen Screen - Final Assessment and Plan - Plan Acute encephalopathy metabolic Monitor neuro vital signs closely CT head negative for any acute changes UTI Lactic acidosis Sepsis Leukocytosis Serial lactic acid levels IV hydration Started on IV antibiotic Will obtain cultures Will change antibiotic as per sensitivity Acute kidney injury Started on IV hydration Monitor renal parameters Nephrology consulted Hypertension Antihypertensives titrated Continue home medications and titrate as needed Hyperlipidemia Continue statin Diabetes Insulin sliding scale Accu-Chek before every meal and at bedtime Anemia of chronic disease Monitor H&H closely No overt bleeding at this time GI/DVT prophylaxis Advanced directive full code Discharge Plan: Senior Care Plan to discharge in: 48 Hours - Advance Directives Does patient have a Living Will: No Does patient have a Durable POA for Healthcare: No - Code Status/Comfort Care Code Status: Full Code Time Spent Managing Pts Care (In Minutes): 48
[2024-03-08] MEDS ORDERED: ONDANSETRON 4 MG/2 ML VIAL IV PRN (22:58)
[2024-03-08] MEDS ORDERED: IPRATROPIUM BROM 0.5MG/2.5ML NEB PRN (22:58)
[2024-03-08] MEDS ORDERED: ALBUTEROL 2.5 MG/3 ML NEB SOL NEB PRN (22:58)
[2024-03-08] MEDS ORDERED: ACETAMINOPHEN 325 MG TABLET PO PRN (22:58)
[2024-03-09] MEDS: PIPER TAZO 2.25 GM in NA CHLORIDE 0.9% 50 ML IV SCH (00:45)
[2024-03-09] MEDS: NA CHLORIDE 0.9% 1,000 ML IV SCH (00:45)
[2024-03-09] MEDS: ALBUMIN HUMAN 25% 100 ML IV ONE ×2 (04:08→06:30)
[2024-03-09] MEDS: NA CHLORIDE 0.9% 1,000 ML IV ONE (06:25)
[2024-03-09 07:23] LABS: Absolute Lymphocytes (CBC) 1.4 K/uL (0.7-4.9); Absolute Monocytes 1.1 K/uL (0.1-1.3); Absolute Neutrophil 15.8 K/uL (1.8-8.0); Basophils % 0.1 % (0-1.3); Eosinophils % 0.2 % (0-4.4); Hematocrit 29.3 % (39.6-49.0); Hemoglobin 9.7 g/dL (13.6-17.9); Lymphocytes % 7.6 % (15.3-44.8); MCH 25.9 pg (27.0-35.0); MCHC 33.2 g/dL (32.0-36.0); MPV 7.6 fL (7.6-11.3); Monocytes % 6.1 % (3.3-12.3); Platelets 394 thou/uL (152-406); RBC Red Blood Cell Count 3.76 M/uL (4.33-5.43); Red Cell Distribution Width 17.1 % (12.1-15.2)
[2024-03-09 08:00] LABS: AST/SGOT 13 U/L (15-37); Albumin 2.1 g/dL (3.4-5.0); Albumin/Globulin Ratio 0.5 (1.1-1.8); Alkaline Phosphatase 103 U/L (45-117); Anion Gap 13.9 mEq/L (5.0-15.0); BUN Blood Urea Nitrogen 79 mg/dL (7-18); Bicarbonate 18 mEq/L (21-32); Bilirubin Total 0.4 mg/dL (0.2-1.0); Glomerular Filtration Rate 11 ml/min (=/>90); Glucose Level 56 mg/dL (74-106); Potassium 3.9 mEq/L (3.5-5.1); Protein, Total 6.1 g/dL (6.4-8.2); Sodium Level 136 mEq/L (136-145)
[2024-03-09 08:01] LABS: ALT/SGPT < 14 U/L (16-61)
[2024-03-09 09:03] LABS: Atypical Lymphocytes 7 %; Blood Morphology Comment NOTED (NOT SEEN); Differential Total Cells Count 100; Lymphocytes 3 % (15-42); Monocytes 8 % (0-10); Platelet Estimate ADEQ; Segmented Neutrophils 82 % (40-80)
[2024-03-09 09:04] LABS: Burr Cells 1+; Smudge Cells PRESENT
[2024-03-09] MEDS ORDERED: D10W 125 ML IV PRN (10:11)
[2024-03-09] MEDS ORDERED: GLUCAGON 1 MG/VIAL IM PRN (10:11)
[2024-03-09] MEDS: D10W 250 ML BAG IV SCH (10:37)
[2024-03-09] MEDS: D10W 250 ML IV ONE (10:47)
[2024-03-09] MEDS: HEPARIN 5000 UNIT/ML 1 ML VIAL SQ SCH (10:48)
[2024-03-09] MEDS: D5 0.9 NS 1,000 ML IV SCH (11:00)
[2024-03-09] MEDS: D5 0.9 NS 1,000 ML IV ONE (11:43)
--- NOTE | 2024-03-09 15:58 | RAD REPORT ---
Modified barium swallow exam with speech pathology service HISTORY: Cough. Pneumonia Findings: fluoro time: 4:19 min Dose: 31.33 mGy 25 fluoroscopic spot series obtained PHARYNGEAL RESIDUE: VALLECULAR PREMATURE SPILLAGE INTO VALLECULAE, UNABLE TO CLEAR WITH A SECOND SWALLOW, DELAYED SWALLOW REFLEX. AK OLONGED MASTICATION AND BOLUS HOLDING IN ORAL PHASE. No aspiration seen
--- NOTE | 2024-03-09 16:47 | CON ---
Reason For Consultation: This is a 74-year-old male I was consulted for possible septic shock. History Of Present Illness: The patient is a 74-year-old male with significant past medical history of coronary artery disease, COPD, diabetes mellitus, hypertension, hyperlipidemia, urinary tract infection, Alzheimer's disease, hypothyroidism, anemia, Parkinson disease, congestive heart failure, coming to the emergency room with altered mental status. The patient is now being transferred to ICU for hypotension and altered mental status, seen in the emergency room with the help of nursing staff. The patient is currently on Zosyn. Most of the history was obtained through medical records and staff. Past Medical History: As per HPI. Social History: Nonsmoker, nondrinker. Family History: Noncontributory. Medications: Zosyn. See MARs for other medications. Allergies: PROMETHAZINE AND ZOLPIDEM. Review of Systems: Unable to obtain. Physical Examination: General: This is a 74-year-old male, lying in bed, not in any acute cardiopulmonary distress. Vital Signs: Temperature 97, pulse 95, respirations 14, blood pressure 92/70. HEENT: Unremarkable, 3 L nasal cannula. Neck: Supple. LUNGS: Basal crackles. Heart: S1, S2. Regular. Abdomen: Soft. Bowel sounds present. Extremities: Bilateral heel wounds noted stage II on the left and right side stage I. Also noted a large area of DTI 11 x 11 and stage IV with 1 cm undermining at 12 o'clock. Also noted that sacral coccyx region area with damage and open mucosal membrane also noted with some pus, which was cleared by nursing staff. Laboratory Data: Shows WBC 26376 down to 18,000, hemoglobin 9.7, platelets are 394. Chemistry shows BUN of 79, creatinine 5.1. Micro data; blood cultures are pending. Urine culture is pending. CT abdomen and pelvis shows that he has bilateral perinephric and peripelvic fat stranding involving both kidneys without evidence of hydroureteronephrosis or obstructive calculi, finding may relate to ascending infection in the appropriate clinical setting. Urinalysis shows wbc more than 50. Assessment/plan: Urosepsis. Cultures are pending. We will recommend to decrease Zosyn to 2.25 g q.12 hours. Sacrococcygeal wound stage IV. Recommend to apply iodoform gauze, foam dressing and offloading with low air loss mattress, bilateral heel with Betadine and foam dressing and offloading. Apply Silvadene to the urethral meatus wound site. Consider getting a Neurology consult for further evaluation. Continue current treatment. Thank you for consult. We will follow the patient as needed. NF/MODL Voice ID: [id number] Report ID: [id number]
--- NOTE | 2024-03-09 16:55 | P.PN ---
Subjective Date of Service: 03/09/24 Chief Complaint: AMS Patient is unresponsive and cannot provide any subjective complaint. Patient noted to be hypoglycemic, borderline hypotensive, and tachycardic. Patient given 250 mL 10% Dextrose and transferred to the ICU for close monitoring. Physical Examination - Vital Signs Temperature: 97.6 F Blood Pressure: 93/70 Pulse: 105 Respirations: 15 Pulse Ox (%): 100 - Studies Laboratory Data (last 24 hrs) 03/08/24 03/08/24 03/08/24 18:55 18:55 18:55 WBC 20.90 H Hgb 11.6 L Hct 35.9 L Plt Count 510 H PT 14.0 H INR 1.34 APTT 29.7 Sodium 130 L Potassium 4.3 BUN 93 H Creatinine 6.98 H Glucose 87 Total Bilirubin 0.5 AST 16 ALT < 14 L Alkaline Phosphatase 128 H Microbiology Data (last 24 hrs): 03/08/24 18:40 Nasopharnyx Influenza Type A Antigen Screen - Final 03/08/24 18:40 Nasopharnyx Influenza Type B Antigen Screen - Final Assessment And Plan - Plan Physical examination General: Unresponsive, NAD HEENT: Conjunctiva not pale, anicteric sclera Neck: Supple, no elevated JVD Heart: Heart sounds 1 and 2 normal, regular rhythm, tachycardic, no pedal edema, good capillary refill Lungs: Clear to auscultation bilaterally, adequate breath sounds bilaterally, no rhonchi or crackles. Abdomen: Soft, nondistended, nontender, normal bowel sounds. Extremities: No tenderness, no deformity Skin: Decreased skin turgor, no rash. Neuro: Unresponsive. Patient moves all extremities. Psychiatry: Unresponsive. Assessment and plan Acute metabolic encephalopathy. Secondary to UTI and dehydration IV hydration IV antibiotics UTI Lactic acidosis Septic shock Significantly elevated lactate. Severe leukocytosis Aggressive IV hydration Broad-spectrum antibiotics-IV cefepime and vancomycin Serial lactic acid levels Follow blood cultures and urine culture Monitor CBC Hypoglycemia Diabetes mellitus type 2 Hypoglycemia likely related to reduced oral intake and sepsis. Patient transferred to the ICU. Status post 250 mL 10% dextrose bolus followed by D5 NS Monitor fingerstick glucose closely. No insulin Hold oral antidiabetics. Acute kidney injury Prerenal secondary to dehydration Aggressive IV hydration Nephrology consulted Monitor renal function. Hypertension Patient now with hypotension Hold home antihypertensives. Anemia of chronic disease Stable for now. No overt bleeding at this time Monitor CBC GI/DVT prophylaxis: Heparin SQ Advanced directive: full code
[2024-03-09] MEDS: VANCOMYCIN 2.25 GM in NA CHLORIDE 0.9% 500 ML IVPB ONE (17:44)
[2024-03-09 18:25] LABS: Magnesium 1.8 mg/dL (1.6-2.4); Phosphorus 3.6 mg/dL (2.5-4.9)
--- NOTE | 2024-03-09 19:29 | P.CNS ---
Date of Consult: 03/09/24 Reason for Consult: Traumatic hypospadias Chief Complaint: AMS History of Present Illness: 74-year-old gentleman well-known to me with Parkinson's disease, DM2, CAD s/p CABG and PCI with stents and PCI with stents on Plavix, immobile/bedbound with high-grade sacral decubitus ulcer and urethral Lagunas catheter initially placed to minimize detrusor instability associated incontinence further compromising the wound, with traumatic hypospadias complicating chronic catheter placement. He was last seen in my office 01/29/2024, and preoperative evaluation and cardiology clearance was requested with Dr. Layton. Dr. Layton suggested the patient might benefit from inpatient admission and optimization prior to operative management, which was planned for suprapubic catheter placement. In the interim, he has been admitted to the ICU with further complicating infection and signs of septic shock. Because of the traumatic hypospadias, I was requested to evaluate the patient for catheter exchange. 03/08/2024 lactate 4.8 that only improved to 4.3 associated with WBC 20.9, hemoglobin 11.6, platelets 510, creatinine 6.98, alk phos 128, and urinalysis as expected with 1+ nitrites, 2+ leukocyte Estrace, > 50 RBCs per hpf, > 50 WBCs per hpf, 20-50 bacteria, 4+ mucus. Culture pending. 03/09/2024 WBC 18.4, hemoglobin 9.7, BUN/creatinine 79/5.19 with EGFR 11, bicarb 18 03/08/2024 CT abdomen pelvis without contrast impression: Bilateral perinephric and peripelvic fat stranding involving both kidneys without evidence of hydroureteronephrosis or obstructive calculi. Findings suggestive of ascending infection. Chronic appearing wall thickening of the decompressed urinary bladder, may relate to chronic cystitis. Bibasilar as space opacities with small effusion on the right raising concern for pneumonitis or aspiration. Small stable bilateral adrenal benign lesions as well as left adrenal nodular thickening with stability suggesting benign nature. Examination: Patient awake but minimally responsive No dyspnea or sign of respiratory distress Urethral Lagunas catheter in place draining clear yellow urine, but traumatic penoscrotal hypospadias without significant erythema or tenderness of the phallus noted. To the right aspect of the phallus at the penoscrotal junction in the infrapubic region, a superficial wound was present from urethral Lagunas catheter having been situated compressed between the tissues. No significant erythema or discharge noted. No crepitus of the tissues noted. Recommendations: -Continue antimicrobial therapy as appropriate -Fluid resuscitation as appropriate -May exchange urethral Lagunas catheter after patient on antimicrobials with response for at least 24 to 48 hours. I demonstrated to the nurse present at bedside how to exchange the catheter despite the presence of the traumatic hypospadias of which no significant complexity existed. -Should patient recover significantly, we may consider operative suprapubic catheter placement on this admission Allergies promethazine Allergy (Verified 04/28/23 16:16) Hives/Rash zolpidem [From Ambien] Adverse Reaction (Verified 05/27/18 21:13) hallucinates Home medications list reviewed: Yes Home Medications: Acetaminophen [8 Hour Acetaminophen] 650 mg PO Q6H PRN 04/28/23 Ascorbic Acid [Vitamin C] 500 mg PO DAILY 04/28/23 Aspirin 81 mg PO DAILY 04/28/23 Calcium Carbonate [Calcium] 750 mg PO DAILY 04/28/23 Clopidogrel Bisulfate [Plavix] 75 mg PO DAILY 04/28/23 Ezetimibe [Zetia*] 10 mg PO DAILY 04/28/23 Insulin Degludec [Tresiba] 50 unit SQ BEDTIME 04/28/23 Irbesartan [Avapro] 150 mg PO DAILY 04/28/23 Metoprolol Tartrate 50 mg PO DAILY 04/28/23 Repaglinide 1 mg PO DAILY 04/28/23 Tramadol HCl [Ultram] 50 mg PO Q8H PRN 04/28/23 Zinc Amino Acid Chelate [Zinc] 50 mg PO DAILY 04/28/23 Carbidopa/Levodopa [Carbidopa-Levo ER 25-100 Tab] 1 tab PO TID 03/09/24 Metformin HCl 1,000 mg PO DAILY 03/09/24 Sennosides [Senna] 8.6 mg PO BID 03/09/24 Tolterodine Tartrate [Tolterodine Tartrate ER] 4 mg PO DAILY 03/09/24 Trospium Chloride [Sanctura] 20 mg PO BID 03/09/24 - Past Medical/Surgical History Diabetic: Yes -: Diabetes mellitus type 2insulin-dependent -: Hypertension -: Coronary artery disease -: Hyperlipidemia -: Parkinson's -: CABG -: bilateral knee sx -: cholecystectomy Psychosocial/ Personal History: Patient lives at [facility]. - Social History Smoking Status: Unknown if ever smoked Alcohol use: No CD- Drugs: No Caffeine use: Yes Place of Residence: [facility] Physical Examination Temp Pulse Resp BP Pulse Ox 97.6 F 109 H 20 106/57 L 97 03/09/24 16:59 03/09/24 18:00 03/09/24 18:00 03/09/24 18:00 03/09/24 18:00 Laboratory Data (last 24 hrs) 03/08/24 03/08/24 18:55 18:55 PT 14.0 H INR 1.34 APTT 29.7 Sodium 130 L Potassium 4.3 BUN 93 H Creatinine 6.98 H Glucose 87 Total Bilirubin 0.5 AST 16 ALT < 14 L Alkaline Phosphatase 128 H - Problems (1) Septic shock Current Visit: Yes Status: Acute (2) Pyelonephritis Current Visit: Yes Status: Acute (3) Cystitis Current Visit: No Status: Acute (4) Detrusor instability Current Visit: No Status: Acute (5) Hypospadias, penoscrotal Current Visit: No Status: Acute (6) Parkinsons disease Current Visit: No Status: Acute (7) Urge incontinence Current Visit: No Status: Acute Conclusions/Impression: see recs in HPI Critical Care: No Time Spent Managing Pts care (In Minutes): 45
[2024-03-09] MEDS ORDERED: PIPER TAZO 3.375 GM in NA CHLORIDE 0.9% 100 ML IV SCH (21:00)
[2024-03-09 21:25] LABS: Ferritin 236.6 ng/mL (26-388)
[2024-03-10 03:47] LABS: AST/SGOT 38 U/L (15-37); Albumin 1.7 g/dL (3.4-5.0); Albumin/Globulin Ratio 0.5 (1.1-1.8); Alkaline Phosphatase 99 U/L (45-117); Anion Gap 9.8 mEq/L (5.0-15.0); BUN Blood Urea Nitrogen 63 mg/dL (7-18); Bicarbonate 19 mEq/L (21-32); Bilirubin Total 0.3 mg/dL (0.2-1.0); Globulin 3.5 g/dL (2.3-3.5); Glomerular Filtration Rate 24 ml/min (=/>90); Potassium 2.8 mEq/L (3.5-5.1); Protein, Total 5.2 g/dL (6.4-8.2); Sodium Level 146 mEq/L (136-145); Uric Acid 7.1 mg/dL (3.5-7.2)
[2024-03-10 03:48] LABS: ALT/SGPT < 14 U/L (16-61)
[2024-03-10 03:49] LABS: Absolute Eosinophils 0.1 K/uL (0-0.5); Absolute Lymphocytes (CBC) 0.9 K/uL (0.7-4.9); Absolute Monocytes 1.1 K/uL (0.1-1.3); Absolute Neutrophil 6.9 K/uL (1.8-8.0); Basophils % 0.2 % (0-1.3); Eosinophils % 0.6 % (0-4.4); Hematocrit 27.5 % (39.6-49.0); Lymphocytes % 9.6 % (15.3-44.8); MCH 26.1 pg (27.0-35.0); MCHC 32.7 g/dL (32.0-36.0); Monocytes % 11.8 % (3.3-12.3); Neutrophils % 77.8 % (41.7-73.7); Platelets 340 thou/uL (152-406); RBC Red Blood Cell Count 3.44 M/uL (4.33-5.43); Red Cell Distribution Width 16.9 % (12.1-15.2)
[2024-03-10 03:50] LABS: UR PROTEIN 78.1 mg/dL (<11.9); Urine Protein/Creatinine Ratio 1.45 ratio (<0.15)
[2024-03-10 03:52] LABS: Glucose Level 813 mg/dL (74-106)
[2024-03-10 03:57] LABS: Renal Epithelial <5 /HPF (None Seen); Specific Gravity 1.012 (1.005-1.030); Sqamous Epithelial None Seen /HPF (None Seen); Transitional Epithelial <5 /HPF (None Seen); Urine Bacteria <20 /HPF (<20); Urine Bilirubin NEGATIVE (Negative); Urine Blood 3+ (Negative); Urine Clarity Extremely Turbid (Clear); Urine Color Light-Orange (Yellow); Urine Culture Reflex Order REFLEXED; Urine Glucose NEGATIVE (Negative); Urine Granular Casts >20 /LPF (None Seen); Urine Ketones NEGATIVE (Negative); Urine Micro Reflex YN NO BILL MICROSCOPIC; Urine Mucus Slight /HPF (None Seen); Urine Nitrite NEGATIVE (Negative); Urine Protein 1+ (Negative); Urine RBC >50 /HPF (None Seen); Urine Urobilinogen Normal (Normal); Urine WBC >50 /HPF (<5); Urine WBC Clump Many /HPF (None Seen); Urine pH 5.5 (5.0-7.0)
[2024-03-10 04:07] LABS: MA/CREAT RATIO 221.8 (< 30.0); UR MICROALBUMIN 12.2 mg/dL (< 1.9)
[2024-03-10 05:39] LABS: Anion Gap 8.1 mEq/L (5.0-15.0); Magnesium 1.7 mg/dL (1.6-2.4); Phosphorus 2.4 mg/dL (2.5-4.9); Potassium 3.1 mEq/L (3.5-5.1)
[2024-03-10] MEDS: MAGNESIUM SULFATE 1 gm IVPB 1 GM/100 ML BAG IV ONE (07:01)
[2024-03-10] MEDS: POTASSIUM PHOS IN 0.9 % NACL 15 MMOL/250 ML BAG IV ONE (07:01)
[2024-03-10] MEDS: CEFEPIME 2 GM in NA CHLORIDE 0.9% 100 ML IV SCH (08:06)
[2024-03-10] MEDS: KCL 20 MEQ/100 mL IVPB 20 MEQ/100 ML BAG IV SCH (08:06)
[2024-03-10] MEDS: Mupirocin NASAL 2 APPL/1 GM TUBE NAS SCH (08:07)
--- NOTE | 2024-03-10 08:18 | RAD REPORT ---
EXAMINATION: ONE VIEW CHEST XR CLINICAL INDICATION: Male, 74 years old.,Aspiration TECHNIQUE: Frontal chest projection is submitted. Examination is limited by patient positioning and t echnique. COMPARISON: 03/08/2024 FINDINGS: Medial left upper lung field wedge-shaped opacity with linear demarcation superiorly could represent airspace disease versus superimposition of soft tissue. Lungs are otherwise clear. No pneumothorax or sizable effusion. The heart is normal in size. Mediastinal contours are unchanged with sequelae of median sternotomy and aortic tortuosity. IMPRESSION: Questionable left upper lobe medial opacity as above.
--- NOTE | 2024-03-10 09:08 | P.CNS ---
Date of Consult: 03/10/24 Reason for Consult: REYMUNDO/ CKD Requesting Physician: rhett whitaker Chief Complaint: AMS History of Present Illness: 74 yrs old Male with past medical history of CAD, COPD, diabetes, hypertension, hyperlipidemia, UTI, Alzheimer's disease, hypothyroidism, anemia, Parkinson's disease, CHF, presents to ER with altered mental status. Patient was brought to ER from custodial because of the decreased responsiveness. Started earlier today and has been progressively getting worse. Patient cannot provide any history hence most of the history is obtained from the chart review and also talking to the ER physician. EMS brought patient from custodial for altered mental status and decreased responsiveness. intermediate noticed altered mental status that began yesterday. No trauma. No reported fever but custodial reported low blood pressure and dark urine with decreased urinary output. Patient denies pain. [id number] 17:56 This 74 yrs old Male presents to ER via Unassigned with complaints of ams. rn 17:56 The patient presents with decreased responsiveness. Onset: The symptoms/episode rn began/occurred at an unknown time. Associated signs and symptoms: Pertinent positives: confusion, Pertinent negatives: abdominal pain, chest pain. Current symptoms: In the emergency department the patient's symptoms are unchanged from the initial presentation. It is unknown whether or not the patient has had similar symptoms in the past. EMS brought patient from custodial for altered mental status and decreased responsiveness. intermediate noticed altered mental status that began yesterday. No trauma. No reported fever but custodial reported low blood pressure and dark urine with decreased urinary output. Patient denies pain. Per EMS report patient is usually more alert and talkative than he is now.. Limited HPI/ ROS due to mental status. Allergies promethazine Allergy (Verified 04/28/23 16:16) Hives/Rash zolpidem [From Ambien] Adverse Reaction (Verified 05/27/18 21:13) hallucinates Home medications list reviewed: Yes Home Medications: Acetaminophen [8 Hour Acetaminophen] 650 mg PO Q6H PRN 04/28/23 Ascorbic Acid [Vitamin C] 500 mg PO DAILY 04/28/23 Aspirin 81 mg PO DAILY 04/28/23 Calcium Carbonate [Calcium] 750 mg PO DAILY 04/28/23 Clopidogrel Bisulfate [Plavix] 75 mg PO DAILY 04/28/23 Ezetimibe [Zetia*] 10 mg PO DAILY 04/28/23 Insulin Degludec [Tresiba] 50 unit SQ BEDTIME 04/28/23 Irbesartan [Avapro] 150 mg PO DAILY 04/28/23 Metoprolol Tartrate 50 mg PO DAILY 04/28/23 Repaglinide 1 mg PO DAILY 04/28/23 Tramadol HCl [Ultram] 50 mg PO Q8H PRN 04/28/23 Zinc Amino Acid Chelate [Zinc] 50 mg PO DAILY 04/28/23 Carbidopa/Levodopa [Carbidopa-Levo ER 25-100 Tab] 1 tab PO TID 03/09/24 Metformin HCl 1,000 mg PO DAILY 03/09/24 Sennosides [Senna] 8.6 mg PO BID 03/09/24 Tolterodine Tartrate [Tolterodine Tartrate ER] 4 mg PO DAILY 03/09/24 Trospium Chloride [Sanctura] 20 mg PO BID 03/09/24 - Past Medical/Surgical History Diabetic: Yes -: DM II -: HTN -: CAD -: HLD -: Parkinson's -: Hx REYMUNDO (Dr. Pena/ Ross[place]) -: CABG -: bilateral knee sx -: cholecystectomy Psychosocial/ Personal History: Patient lives at [facility]. - Social History Smoking Status: Unknown if ever smoked Alcohol use: No CD- Drugs: No Caffeine use: Yes Place of Residence: [facility] Review of Systems is unable to be obtained (No speech) Physical Examination Temp Pulse Resp BP Pulse Ox 98.1 F 117 H 23 H 97/56 L 96 03/10/24 08:00 03/10/24 08:00 03/10/24 08:00 03/10/24 08:00 03/10/24 08:00 General: In no apparent distress HEENT: Atraumatic Respiratory: Clear to auscultation bilaterally, Rhonchi/gurgles (Upper Airway Ronchi) Cardiovascular: No edema, Regular rate/rhythm Gastrointestinal: Soft and benign, Non-distended Musculoskeletal: No clubbing, Contractures Integumentary: No rashes, No cyanosis Neurological: Abnormal speech Blood work reviewed in the chart. Imagings Data: [id number] EXAMINATION: ONE VIEW CHEST XR CLINICAL INDICATION: Male, 74 years old.,Aspiration TECHNIQUE: Frontal chest projection is submitted. Examination is limited by patient positioning and technique. COMPARISON: 03/08/2024 FINDINGS: Medial left upper lung field wedge-shaped opacity with linear demarcation superiorly could represent airspace disease versus superimposition of soft tissue. Lungs are otherwise clear. No pneumothorax or sizable effusion. The heart is normal in size. Mediastinal contours are unchanged with sequelae of median sternotomy and aortic tortuosity. IMPRESSION: Questionable left upper lobe medial opacity as above. EXAMINATION: CT Abdomen Pelvis Wo Contrast CLINICAL INDICATION: Male, 74 years old. AMS, indwelling catheter TECHNIQUE: CT abdomen and pelvis was performed, without IV contrast, as per department protocol. Axial, sagittal and coronal reconstructions were obtained. One or more of the following dose reduction techniques were used: Automated exposure control, adjustment of the mA and kV according to the patient size, and iterative reconstruction. Unless otherwise specified, incidental findings do not require dedicated imaging follow-up. COMPARISON: 04/28/2023 FINDINGS: The lack of intravenous contrast limits the sensitivity of this exam for evaluation of solid visceral organs, vascular structures, and retroperitoneum. LOWER CHEST: Patchy dependent alveolar opacities worse on the right. Trace right layering effusion. LIVER: Normal in size and contour. No focal lesion. BILIARY SYSTEM: Status post cholecystectomy. SPLEEN: Normal size. No focal lesion. PANCREAS: No mass, ductal dilation, or kimberlee-pancreatic fluid. ADRENALS: Ovoid left adrenal 2.3 cm lesion containing macroscopic fat, and a smaller right adrenal 1.7 cm lesion containing macroscopic fat, both are grossly stable, these are most suggestive of myelolipomas. Soft tissue density nodular thickening of the left adrenal gland is also stable. KIDNEYS AND URETERS: Normal size and contour. No hydronephrosis. Perinephric and peripelvic fat stranding, symmetric, without discrete collections within limits of noncontrast evaluation. No radiopaque calculi. URINARY BLADDER: Decompressed limiting evaluation with Lagunas catheter in place. Allowing for this, apparent diffuse bladder wall thickening, similar to multiple prior exams. GASTROINTESTINAL TRACT: No evidence of bowel obstruction, significant free fluid, free air or abscess. APPENDIX: Normal appendix. LYMPH NODES: No lymphadenopathy. MUSCULOSKELETAL: No acute or suspicious osseous abnormality. ADDITIONAL FINDINGS: None. IMPRESSION: Bilateral perinephric and peripelvic fat stranding involving both kidneys, without evidence of hydroureteronephrosis or obstructive calculi. Findings may relate to ascending infection in the appropriate clinical setting. Chronic appearing wall thickening of the decompressed urinary bladder, may relate to chronic cystitis. Bibasilar airspace opacities with small effusion on the right, raising concern for pneumonitis or aspiration. Stable bilateral adrenal benign lesions, as well as left adrenal nodular thickening with stability suggesting benign nature. EXAM: CT Head Brain Wo Cont HISTORY: ams COMPARISON: 11/24/2023 TECHNIQUE: Multiple contiguous axial images were obtained for a CT of the brain without contrast. Sagittal and coronal reformats were performed. One or more of the following dose reduction techniques were used: Automated exposure control, adjustment of the mA and kV according to patient size, and iterative reconstruction. Unless otherwise specified, incidental findings do not require dedicated imaging follow-up. FINDINGS: No evidence of hydrocephalus, intracranial hemorrhage, or extra-axial fluid collection. Moderate brain atrophy with mild burden of periventricular and deep white matter chronic microvascular ischemic changes present. The calvarium is intact. The visualized paranasal sinuses and mastoid air cells are essentially clear. IMPRESSION: No evidence of acute intracranial abnormality. Stable chronic findings as above EXAMINATION: ONE VIEW CHEST XR CLINICAL INDICATION: Male, 74 years old.,AMS TECHNIQUE: Frontal chest projection is submitted. Examination is limited by patient positioning and technique. COMPARISON: 11/24/2023 FINDINGS: The lungs are hypoinflated, but grossly clear. Interval improvement of central interstitial prominence. Interval extubation, removal of enteric tube and left IJ CVC. No pneumothorax or sizable effusion. The heart is normal in size. Mediastinal contours are unchanged. IMPRESSION: No acute intrathoracic abnormalities. Conclusions/Impression: Stage III REYMUNDO in the setting of sepsis/ hypotension CKD NOS with Proteinuria -No NSAIDs Hypokalemia -Replete as ordered Hypophosphatemia -Replete as ordered Septic Shock Pyelonephritis -Continue Abx; Monitor vancomycin level -Follow up cultures DM II with CKD -RISS Hypoalbuminemia -Agree with IV Albumin Anemia in chronic illness Iron Deficiency -PRBC prn Hospitalist, Urology and ER notes reviewed 35 minutes patient care Thank you kindly for the consultation
[2024-03-10] MEDS: INSULIN REGULAR (HUMAN) 100 UNIT/ML SQ SCH (12:06)
--- NOTE | 2024-03-10 13:29 | PN ---
Subjective: The patient is lying in bed, somnolent, not in any acute distress except respiratory tac hypnea and tachycardia of 120 beats per minute. As per staff, no new acute event overnight. Objective: Vital Signs: Temperature 98, pulse 120, respirations 20, blood pressure 97/57. Lungs: Basal crackles. Heart: S1, S2. Regular. Abdomen: Soft, nontender. Bowel sounds present. Extremities: 1+ edema. Laboratory Data: WBC 8.9, down from 18,000; hemoglobin 9; platelets are 340. Chemistry shows BUN of 73, creatinine 2.6. Micro data showing urinalysis with 4+ gram-negative rods. Blood cultures; no g rowth for 24 hours. Current Medication: Include cefepime. Assessment And Plan: Urosepsis, left lower lobe pneumonia, leukocytosis improving, renal failure, an emia of chronic disease. Continue supportive care and antibiotic and we will follow the patient as n eeded. NF/MODL Voice ID: [id number] Report ID: [id number]
--- NOTE | 2024-03-10 14:45 | P.PN ---
Subjective Date of Service: 03/10/24 Chief Complaint: AMS Patient is is more responsive today. Hypoglycemia resolved. Patient failed bedside swallow. Blood pressures is borderline low. No recorded fever. Physical Examination - Vital Signs Temperature: 98.1 F Blood Pressure: 104/62 Pulse: 116 Respirations: 24 Pulse Ox (%): 98 Assessment And Plan - Plan Physical examination General: Awake, open eyes spontaneously NAD. HEENT: Conjunctiva not pale, anicteric sclera, dry mouth and dry tongue Neck: No elevated JVD Heart: Heart sounds 1 and 2 normal, regular rhythm, tachycardic, no pedal edema, good capillary refill Lungs: Clear to auscultation bilaterally, adequate breath sounds bilaterally, no rhonchi or crackles. Abdomen: Soft, nondistended, nontender, normal bowel sounds. Extremities: No tenderness, no deformity Skin: Normal skin turgor, no rash. Neuro: Awake, nonverbal but interactive Psychiatry: Awake. Assessment and plan Acute metabolic encephalopathy. Secondary to UTI and dehydration Improved Continue IV hydration Continue IV antibiotics UTI Lactic acidosis Septic shock Initial significantly elevated lactate. Lactic acidosis resolved. Leukocytosis resolved. Continue IV hydration Urine cultures growing gram-negative rods Continue broad-spectrum antibiotics-IV cefepime. IV vancomycin discontinued. Serial lactic acid levels Follow blood cultures and urine culture Monitor CBC Hypoglycemia Diabetes mellitus type 2 Hypoglycemia likely related to reduced oral intake and sepsis. Patient transferred to the ICU. Status post 250 mL 10% dextrose bolus followed by D5 NS Hypoglycemia resolved. Accu-Cheks and insulin sliding scale. Hold oral antidiabetics. Acute kidney injury Hypernatremia Prerenal secondary to dehydration Hyponatremia resolved Nephrology input appreciated. Continue IV hydration. Monitor renal function. Hypertension Patient has borderline low blood pressure. Continue to hold home antihypertensives. Anemia of chronic disease Drop in hemoglobin likely dilutional. No overt bleeding at this time Monitor CBC GI/DVT prophylaxis: Heparin SQ Advanced directive: full code
[2024-03-11 07:04] LABS: Absolute Eosinophils 0.1 K/uL (0-0.5); Absolute Lymphocytes (CBC) 1.4 K/uL (0.7-4.9); Absolute Monocytes 1.9 K/uL (0.1-1.3); Absolute Neutrophil 13.1 K/uL (1.8-8.0); Basophils % 0.2 % (0-1.3); Eosinophils % 0.4 % (0-4.4); Hematocrit 31.4 % (39.6-49.0); Hemoglobin 10.2 g/dL (13.6-17.9); Lymphocytes % 8.4 % (15.3-44.8); MCH 25.6 pg (27.0-35.0); MCHC 32.4 g/dL (32.0-36.0); MCV 79.2 fL (80-100); MPV 7.6 fL (7.6-11.3); Monocytes % 11.8 % (3.3-12.3); Neutrophils % 79.2 % (41.7-73.7); Platelets 436 thou/uL (152-406); RBC Red Blood Cell Count 3.96 M/uL (4.33-5.43); Red Cell Distribution Width 16.9 % (12.1-15.2)
[2024-03-11 07:16] LABS: Albumin 1.8 g/dL (3.4-5.0); Phosphorus 1.7 mg/dL (2.5-4.9); Uric Acid 7.7 mg/dL (3.5-7.2)
[2024-03-11] MEDS: KCL 20 MEQ/100 mL IVPB 20 MEQ/100 ML BAG IV SCH ×2 (11:00→14:39)
[2024-03-11] MEDS: D5.45NS W/KCL 20MEQ 20 MEQ/1,000 ML BAG IV SCH (11:10)
[2024-03-11] MEDS: MAGNESIUM SULFATE 1 gm IVPB 1 GM/100 ML BAG IV ONE (11:11)
--- NOTE | 2024-03-11 12:00 | EKG ---
Test Date: 2024-03-08 Test Time: 18:36:03 Magnetic Tester: TEO MEASUREMENT RESULTS: Intervals: Rate: 107 NM: 128 QRSD: 88 QT: 332 QTc: 443 [place]: P: 51 NM: 128 QRS: -18 T: 27 INTERPRETIVE STATEMENTS: Sinus tachycardia Inferior infarct, age undetermined Abnormal ECG Compared to ECG 11/24/2023 06:20:38 Myocardial infarct finding now present Sinus rhythm no longer present Electronically Signed On 03-11-24 11:58:57 DIESEL DINKEY OPERATOR by Zeus Collier
[2024-03-11] MEDS ORDERED: ALBUTEROL 2.5 MG/3 ML NEB SOL NEB PRN (14:37)
--- NOTE | 2024-03-11 16:27 | P.PN ---
Subjective Date of Service: 03/11/24 Chief Complaint: AMS Patient is awake, nonverbal. No major changes from yesterday. Hypoglycemia resolved. Blood pressure readings have improved. No recorded fever. Physical Examination - Vital Signs Temperature: 98.3 F Blood Pressure: 133/67 Pulse: 112 Respirations: 16 Pulse Ox (%): 93 - Studies Microbiology Data (last 24 hrs): 03/08/24 19:17 Clean Catch Urine [place] Count - Final >100,000 CFU/ML. 03/08/24 19:17 Clean Catch Urine - Final Proteus Mirabilis Assessment And Plan - Plan Physical examination General: Awake, open eyes spontaneously NAD. HEENT: Conjunctiva not pale, anicteric sclera, dry mouth and dry tongue Neck: No elevated JVD Heart: Heart sounds 1 and 2 normal, regular rhythm, tachycardic, no pedal edema, good capillary refill Lungs: Clear to auscultation bilaterally, adequate breath sounds bilaterally, no rhonchi or crackles. Abdomen: Soft, nondistended, nontender, normal bowel sounds. Extremities: No tenderness, no deformity Skin: Normal skin turgor, no rash. Neuro: Awake, nonverbal but interactive Psychiatry: Awake. Calm Assessment and plan Acute metabolic encephalopathy. Secondary to UTI and dehydration Improved Continue IV hydration Continue IV antibiotics Family have decided to proceed with hospice. UTI Lactic acidosis Septic shock Initial significantly elevated lactate. Lactic acidosis resolved. Leukocytosis resolved. Continue IV hydration Urine cultures growing Proteus mirabilis Continue IV cefepime. Status post IV vancomycin. Lactic acidosis resolved Blood cultures: No growth. Monitor CBC Hypoglycemia Diabetes mellitus type 2 Hypoglycemia likely related to reduced oral intake and sepsis. Patient transferred to the ICU. Status post 250 mL 10% dextrose bolus followed by D5 NS D5 NS changed to D5 half NS due to hypernatremia. Hypoglycemia resolved. Accu-Cheks and insulin sliding scale. Hold oral antidiabetics. Acute kidney injury Hypernatremia Prerenal secondary to dehydration Hyponatremia resolved. Patient is currently hypernatremia Nephrology Dr. Ott is following Continue IV hydration. Monitor renal function. Hypertension Blood pressure improved. Patient is currently normotensive. Continue to hold home antihypertensives. Anemia of chronic disease Drop in hemoglobin likely dilutional. Hemoglobin has been stable after the initial drop. No overt bleeding at this time Monitor CBC Goals of care Family opted for hospice. Social service consulted for hospice arrangement.
[2024-03-11] MEDS ORDERED: VANCOMYCIN 1.5 GM in NA CHLORIDE 0.9% 500 ML IVPB SCH (17:00)
[2024-03-11] MEDS: D5W 1,000 ML IV SCH (17:30)
--- NOTE | 2024-03-11 17:56 | PN ---
Subjective: The patient is patient lying in bed. Family by the bedside. Opens eyes spontaneously, otherwise nonverbal. Objective: Vital Signs: Temperature 98, pulse 112, respirations 16, blood pressure 133/67. Lungs: Basal crackles. Heart: S1, S2. Regular. Abdomen: Soft, nontender. Bowel sounds present. Extremity: Trace edema. Laboratory Data: Shows WBC 16.5, hemoglobin 10.2, platelets are 436. Currently on cefepime. Continue current antibiotic. Possible discussion regarding hospice as per kamryn kaur. Poor prognosis. I agree with comfort care. Leukocytosis, anemia of chronic disease, pneumoni tis. We will follow the patient as needed. NF/MODL Voice ID: [id number] Report ID: [id number]
--- NOTE | 2024-03-11 20:18 | P.PN ---
Date of Service: 03/11/24 Vital Signs Temp Pulse Resp BP Pulse Ox 98.3 F 112 H 16 133/67 93 03/11/24 18:51 03/11/24 18:51 03/11/24 18:51 03/11/24 18:51 03/11/24 18:51 Medications Acetaminophen (Acetaminophen 325 Mg Tablet) 650 mg PO Q4HP PRN PRN Reason: Pain scale 2-4 (Mild) Albuterol Sulfate (Albuterol 2.5 Mg/3 Ml Neb Cathryn) 2.5 mg NEB [id number] PRN PRN Reason: SHORTNESS OF BREATH Glucagon (Glucagon 1 Mg/Vial) 1 mg IM 1X PRN PRN Reason: HYPOGLYCEMIA Heparin Sodium (Porcine) (Heparin 5000 Unit/Ml 1 Ml Vial) 5,000 unit SQ Q12HR STU Last Admin: 03/11/24 11:12 Dose: 5,000 unit Dextrose (Dextrose 10% Water Iv Soln.) 125 mls @ 0 mls/hr IV PRN PRN; Protocol PRN Reason: HYPOGLYCEMIA Cefepime HCl 2 gm/ Sodium (Chloride) 100 mls @ 200 mls/hr IV DAILY STU; Protocol Last Admin: 03/11/24 11:11 Dose: 100 mls Dextrose/Water (Dextrose In Water (1-Liter)) 1,000 mls @ 100 mls/hr IV .Q10H STU Last Admin: 03/11/24 17:30 Dose: 1,000 mls Insulin Human Regular (Insulin Regular (Human) 100 Unit/Ml) 0 unit SQ Q6HR STU; Protocol Last Admin: 03/11/24 18:22 Dose: 3 unit Ipratropium [place] (Ipratropium Brom 0.5mg/2.5ml) 0.5 mg NEB [id number] PRN PRN Reason: SHORTNESS OF BREATH Mupirocin (Mupirocin Nasal 2 Appl/1 Gm Tube) 1 appl SHERI BID STU Stop: 03/14/24 21:01 Last Admin: 03/11/24 11:11 Dose: 1 appl Ondansetron HCl (Ondansetron 4 Mg/2 Ml Vial) 4 mg IV Q6HP PRN PRN Reason: NAUSEA / VOMITING Microbiology Results 03/08/24 19:17 Clean Catch Urine [place] Count - Final >100,000 CFU/ML. 03/08/24 19:17 Clean Catch Urine - Final Proteus Mirabilis 03/08/24 18:40 Blood - Blood Aerobic Blood Culture - Preliminary No growth in 24 hours. 03/08/24 18:40 Blood - Blood Anaerobic Blood Culture - Preliminary No growth in 24 hours. 03/08/24 18:55 Blood - Blood Aerobic Blood Culture - Preliminary No growth in 24 hours. 03/08/24 18:55 Blood - Blood Anaerobic Blood Culture - Preliminary No growth in 24 hours. 03/08/24 18:40 Nasopharnyx Influenza Type A Antigen Screen - Final 03/08/24 18:40 Nasopharnyx Influenza Type B Antigen Screen - Final Assessment/ Plan: Nephrology No dyspnea No chest pain No acute events overnight Limited IH/ ROS due to lack of speech Vitals, medications, blood work and imaging reviewed in the chart General: In no apparent distress HEENT: Atraumatic Respiratory: Clear to auscultation bilaterally, Rhonchi/gurgles (Upper Airway Ronchi) Cardiovascular: No edema, Regular rate/rhythm Gastrointestinal: Soft and benign, Non-distended Musculoskeletal: No clubbing, Contractures Integumentary: No rashes, No cyanosis Neurological: Abnormal speech Blood work reviewed in the chart. Imagings Data: EXAMINATION: ONE VIEW CHEST XR CLINICAL INDICATION: Male, 74 years old.,Aspiration TECHNIQUE: Frontal chest projection is submitted. Examination is limited by patient positioning and technique. COMPARISON: 03/08/2024 FINDINGS: Medial left upper lung field wedge-shaped opacity with linear demarcation superiorly could represent airspace disease versus superimposition of soft tissue. Lungs are otherwise clear. No pneumothorax or sizable effusion. The heart is normal in size. Mediastinal contours are unchanged with sequelae of median sternotomy and aortic tortuosity. IMPRESSION: Questionable left upper lobe medial opacity as above. EXAMINATION: CT Abdomen Pelvis Wo Contrast CLINICAL INDICATION: Male, 74 years old. AMS, indwelling catheter TECHNIQUE: CT abdomen and pelvis was performed, without IV contrast, as per department protocol. Axial, sagittal and coronal reconstructions were obtained. One or more of the following dose reduction techniques were used: Automated exposure control, adjustment of the mA and kV according to the patient size, and iterative reconstruction. Unless otherwise specified, incidental findings do not require dedicated imaging follow-up. COMPARISON: 04/28/2023 FINDINGS: The lack of intravenous contrast limits the sensitivity of this exam for evaluation of solid visceral organs, vascular structures, and retroperitoneum. LOWER CHEST: Patchy dependent alveolar opacities worse on the right. Trace right layering effusion. LIVER: Normal in size and contour. No focal lesion. BILIARY SYSTEM: Status post cholecystectomy. SPLEEN: Normal size. No focal lesion. PANCREAS: No mass, ductal dilation, or kimberlee-pancreatic fluid. ADRENALS: Ovoid left adrenal 2.3 cm lesion containing macroscopic fat, and a smaller right adrenal 1.7 cm lesion containing macroscopic fat, both are grossly stable, these are most suggestive of myelolipomas. Soft tissue density nodular thickening of the left adrenal gland is also stable. KIDNEYS AND URETERS: Normal size and contour. No hydronephrosis. Perinephric and peripelvic fat stranding, symmetric, without discrete collections within limits of noncontrast evaluation. No radiopaque calculi. URINARY BLADDER: Decompressed limiting evaluation with Lagunas catheter in place. Allowing for this, apparent diffuse bladder wall thickening, similar to multiple prior exams. GASTROINTESTINAL TRACT: No evidence of bowel obstruction, significant free fluid, free air or abscess. APPENDIX: Normal appendix. LYMPH NODES: No lymphadenopathy. MUSCULOSKELETAL: No acute or suspicious osseous abnormality. ADDITIONAL FINDINGS: None. IMPRESSION: Bilateral perinephric and peripelvic fat stranding involving both kidneys, without evidence of hydroureteronephrosis or obstructive calculi. Findings may relate to ascending infection in the appropriate clinical setting. Chronic appearing wall thickening of the decompressed urinary bladder, may relate to chronic cystitis. Bibasilar airspace opacities with small effusion on the right, raising concern for pneumonitis or aspiration. Stable bilateral adrenal benign lesions, as well as left adrenal nodular thickening with stability suggesting benign nature. EXAM: CT Head Brain Wo Cont HISTORY: ams COMPARISON: 11/24/2023 TECHNIQUE: Multiple contiguous axial images were obtained for a CT of the brain without contrast. Sagittal and coronal reformats were performed. One or more of the following dose reduction techniques were used: Automated exposure control, adjustment of the mA and kV according to patient size, and iterative reconstruction. Unless otherwise specified, incidental findings do not require dedicated imaging follow-up. FINDINGS: No evidence of hydrocephalus, intracranial hemorrhage, or extra-axial fluid collection. Moderate brain atrophy with mild burden of periventricular and deep white matter chronic microvascular ischemic changes present. The calvarium is intact. The visualized paranasal sinuses and mastoid air cells are essentially clear. IMPRESSION: No evidence of acute intracranial abnormality. Stable chronic findings as above EXAMINATION: ONE VIEW CHEST XR CLINICAL INDICATION: Male, 74 years old.,AMS TECHNIQUE: Frontal chest projection is submitted. Examination is limited by patient positioning and technique. COMPARISON: 11/24/2023 FINDINGS: The lungs are hypoinflated, but grossly clear. Interval improvement of central interstitial prominence. Interval extubation, removal of enteric tube and left IJ CVC. No pneumothorax or sizable effusion. The heart is normal in size. Mediastinal contours are unchanged. IMPRESSION: No acute intrathoracic abnormalities. Conclusions/Impression: Stage III REYMUNDO in the setting of sepsis/ hypotension CKD NOS with Proteinuria -No NSAIDs -Continue IVF Hypernatremia/ Dehydration -Change IVF to D5W Hypokalemia -Replete as ordered Hypophosphatemia -Replete as ordered Septic Shock Pyelonephritis -Continue Abx; Monitor vancomycin level -Follow up cultures DM II with CKD -RISS Hypoalbuminemia -Agree with IV Albumin Anemia in chronic illness Iron Deficiency -PRBC prn Hospitalist & ID notes reviewed
[2024-03-12 01:11] VITALS: O2SAT 94
[2024-03-12 02:01] VITALS: BMI 26.0
[2024-03-12 07:22] LABS: Albumin 1.7 g/dL (3.4-5.0); Anion Gap 9.4 mEq/L (5.0-15.0); Potassium 3.4 mEq/L (3.5-5.1)
[2024-03-12 07:27] LABS: Phosphorus 1.5 mg/dL (2.5-4.9)
[2024-03-12 09:21] VITALS: BP 105/56
[2024-03-12] MEDS: POTASSIUM PHOS IN 0.9 % NACL 15 MMOL/250 ML BAG IV ONE (09:48)
[2024-03-12] MEDS: ACETAMINOPHEN 650MG/RECT SUPP PR PRN (09:48)
[2024-03-12] MEDS ORDERED: LORazepam 2 MG/ML VIAL IV PRN (10:25)
[2024-03-12] MEDS: FENTANYL/NS PCA 500 MCG/50 ML SYR IV SCH (11:00)
[2024-03-12] MEDS: FENTANYL CITR 100 MCG/2 ML IV PRN (11:33)
[2024-03-12 11:57] VITALS: TEMP 99.7
--- NOTE | 2024-03-12 15:00 | P.DS ---
Admission Date: 03/08/24 Discharge Date: 03/12/24 Disposition: HOSPICE-MEDICAL FACILITY Discharge Condition: CRITICAL Reason for Admission: [facility] Hospital Course: 74-year-old male, initially admitted for failure to thrive. Patient with limited p.o. intake prior to admission. Labs showed evidence of hypoglycemia, REYMUNDO,. On admission, on IV hydration, encouraging p.o. intake however after extensive discussion with team patient's family and medical staff, family opted for comfort care measures and patient was transitioned to inpatient hospice. Initiated on fentanyl [employer] and IV morphine for comfort measures. Vital Signs/Physical Exam: Temp Pulse Resp BP Pulse Ox 99.7 F 115 H 32 H 105/56 L 115 03/12/24 10:48 03/12/24 08:00 03/12/24 11:33 03/12/24 08:00 03/12/24 11:33 General: Oriented x2 HEENT: Atraumatic Neck: Supple Respiratory: Diminished Cardiovascular: No edema Gastrointestinal: Normal bowel sounds Lymphatics: No axilla or inguinal lymphadenopathy Laboratory Data at Discharge: WBC 16.50 thou/uL (4.3-10.9) H 03/11/24 06:25 Hgb 10.2 g/dL (13.6-17.9) L 03/11/24 06:25 Hct 31.4 % (39.6-49.0) L 03/11/24 06:25 Plt Count 436 thou/uL (152-406) H 03/11/24 06:25 PT 14.0 SECONDS (9.4-12.5) H 03/08/24 18:55 INR 1.34 03/08/24 18:55 APTT 29.7 SECONDS (24.3-36.9) 03/08/24 18:55 Sodium 150 mEq/L (136-145) H 03/12/24 06:30 Potassium 3.4 mEq/L (3.5-5.1) L D 03/12/24 06:30 BUN 31 mg/dL (7-18) H 03/12/24 06:30 Creatinine 1.45 mg/dL (0.70-1.30) H 03/12/24 06:30 Glucose 239 mg/dL (74-106) H 03/12/24 06:30 Uric Acid 7.7 mg/dL (3.5-7.2) H 03/11/24 06:25 Phosphorus 1.5 mg/dL (2.5-4.9) L* 03/12/24 06:30 Magnesium 1.7 mg/dL (1.6-2.4) 03/10/24 05:10 Total Bilirubin 0.3 mg/dL (0.2-1.0) 03/10/24 02:20 AST 38 U/L (15-37) H 03/10/24 02:20 ALT < 14 U/L (16-61) L 03/10/24 02:20 Alkaline Phosphatase 99 U/L (45-117) 03/10/24 02:20 Home Medications: Fentanyl Cit [Sublimaze*] 25 mcg IV Q4H PRN vial 03/12/24 LORazepam [Ativan*] 2 mg IV Q2H PRN vial 03/12/24 Ondansetron [Zofran*] 4 mg IV Q6HP PRN vial 03/12/24 Followup: Kevin Valenzuela MD [Primary Care Provider] -
[2024-03-12] MEDS ORDERED: VANCOMYCIN 1.75 GM in NA CHLORIDE 0.9% 500 ML IVPB SCH (17:00)
[2024-03-12] MEDS ORDERED: CEFEPIME 1 GM in NA CHLORIDE 0.9% 100 ML IV SCH (21:00)
== END 2024-03-12 12:33 | disposition hospice, inpatient (51) | DRG 871 ==
LOC: ER 17:54 → 4TH 22:58 → 3RD-ICU 03-09 11:29 → 4TH 03-10 18:33
PROVIDERS: ADMIT Family Medicine; ATTEND Internal Medicine
DX: A41.9 Sepsis, unspecified organism (principal); G93.41 Metabolic encephalopathy; R65.21 Severe sepsis with septic shock; J18.9 Pneumonia, unspecified organism; N17.9 Acute kidney failure, unspecified; F05 Delirium due to known physiological condition; N10 Acute pyelonephritis; E87.20 Acidosis, unspecified; J44.0 Chronic obstructive pulmonary disease with (acute) lower respiratory infection; E87.0 Hyperosmolality and hypernatremia; E78.00 Pure hypercholesterolemia, unspecified; E03.9 Hypothyroidism, unspecified; I12.9 Hypertensive chronic kidney disease with stage 1 through stage 4 chronic kidney disease, or unspecified chronic kidney disease; N18.9 Chronic kidney disease, unspecified; E11.22 Type 2 diabetes mellitus with diabetic chronic kidney disease; G20.A1 Parkinson's disease without dyskinesia, without mention of fluctuations; I25.10 Atherosclerotic heart disease of native coronary artery without angina pectoris; G30.9 Alzheimer's disease, unspecified; F02.80 Dementia in other diseases classified elsewhere, unspecified severity, without behavioral disturbance, psychotic disturbance, mood disturbance, and anxiety; Z88.8 Allergy status to other drugs, medicaments and biological substances; Z79.82 Long term (current) use of aspirin; Z79.02 Long term (current) use of antithrombotics/antiplatelets; Z79.899 Other long term (current) drug therapy; Z79.4 Long term (current) use of insulin; Z90.49 Acquired absence of other specified parts of digestive tract; Z95.1 Presence of aortocoronary bypass graft; E11.649 Type 2 diabetes mellitus with hypoglycemia without coma; E86.0 Dehydration; D63.1 Anemia in chronic kidney disease; Z95.5 Presence of coronary angioplasty implant and graft; Q54.2 Hypospadias, penoscrotal; N39.41 Urge incontinence; E87.6 Hypokalemia; E83.39 Other disorders of phosphorus metabolism; E88.09 Other disorders of plasma-protein metabolism, not elsewhere classified; D50.9 Iron deficiency anemia, unspecified; Z51.5 Encounter for palliative care; R62.7 Adult failure to thrive; Z68.26 Body mass index [BMI] 26.0-26.9, adult
CPT/HCPCS: 36415; 70450; 71045; 74176; 74230; 80048; 80053; 80069; 81001; 82043; 82550; 82570; 82728; 82947; 83540; 83605; 83735; 84100; 84156; 84466; 84550; 85025; 85610; 85730; 87040; 87077; 87086; 87088; 87186; 87804; 87811; 92610; 92611; 93005; 94760; 96365; 96366; 96375; 99285; J0692; J0696; J1644; J2543; J3010; J3475; J3480; J7030; J7040; J7042; P9047

== ENCOUNTER 2024-03-12 12:32 | Inpatient (IN) | payer OTHER ==
[2024-03-12] MEDS ORDERED: MORPHINE 4 MG/ML SYR IV PRN (15:59)
[2024-03-12] MEDS ORDERED: LORazepam 2 MG/ML VIAL IV PRN (16:00)
[2024-03-12] MEDS ORDERED: BISACODYL 10 MG RECTAL SUPP PR PRN (16:02)
[2024-03-12] MEDS ORDERED: ACETAMINOPHEN 650MG/RECT SUPP PR PRN (16:02)
[2024-03-12] MEDS ORDERED: ONDANSETRON 4 MG/2 ML VIAL IV PRN (16:03)
[2024-03-12 16:34] VITALS: BMI 26.6
[2024-03-12] MEDS: SCOPOLAMINE HYDROBROMIDE PATCH TD SCH (16:56)
[2024-03-12] MEDS: MORPHINE 4 MG/ML SYR IV SCH (16:56)
[2024-03-12] MEDS: LORazepam 2 MG/ML VIAL IV SCH (16:57)
[2024-03-12 21:33] VITALS: BP 98/60; TEMP 99.6
[2024-03-13 01:42] VITALS: O2SAT 91
== END 2024-03-13 10:45 | disposition expired | DRG 951 ==
LOC: 4TH 12:32
PROVIDERS: ADMIT Emergency Medicine; ATTEND Emergency Medicine
DX: Z51.5 Encounter for palliative care (principal)